=== PATIENT | female | born 1955 | race Caucasian/White ===

== ENCOUNTER 2016-08-25 14:05 | Inpatient (IN) | payer OTHER, MEDICARE ==
[~2016-08-25] VITALS: Ht 162.6 cm; Wt 59.0 kg
[~2016-08-25 14:05] MED LIST: CLONAZEPAM1 MG PO; PAXIL10 M1 PO; VICODIN 300 MG-1 TAB PO
[2016-08-25] MEDS ORDERED: PROPRANOLOL HCL10 M1 PO (14:14)
[2016-08-25] MEDS ORDERED: SERTRALINE HCL100 MG PO (14:15)
[2016-08-25] MEDS ORDERED: CLONAZEPAM0.5 M2 PO (14:16)
[2016-08-25] MEDS ORDERED: HYDROXYZINE HCL25 M2 PO (14:16)
[2016-08-25] MEDS ORDERED: VENTOLIN HFA18 GM INH (14:17)
[2016-08-25] MEDS ORDERED: SYMBICORT 16010.2 GM INH (14:17)
[2016-08-25] MEDS ORDERED: TRAZODONE HCL100 M1 PO (14:18)
[2016-08-25] MEDS ORDERED: BACLOFEN10 M1 PO (14:18)
[2016-08-25] MEDS ORDERED: TRAMADOL HCL50 M1 PO (14:18)
--- NOTE | 2016-08-25 14:31 | NUR ---
FRED FROM HOME. HAS HAS DIARRHEA SINCE 08/23 AND TOOK IMODIUM AND SYMPTOMS STOPPED 08/24. HAS HAD INCREASED CONFUSION, NOT TAKING HER MEDICATIONS. POOR PO INTAKE. IS BEING WEANED FROM HER CLONAZEPAM BY DR SEQUEIRA. PT ALERT BUT SLOW TO RESPOND.
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
[2016-08-25 15:07] LABS: ABSOLUTE BASOPHIL COUNT 0 /CUMM (0.0-0.2); ABSOLUTE EOSINOPHIL COUNT 0 /CUMM (0.0-0.7); ABSOLUTE GRANULOCYTE CT 17.4 /CUMM (1.4-6.5); ABSOLUTE LYMPH COUNT 0.6 /CUMM (1.2-3.4); ABSOLUTE MONOCYTE COUNT 0.2 /CUMM (0.10-0.60); BASOPHIL % 0 % (0.0-2.0); EOSINOPHIL % 0 % (0-5); GRANULOCYTE % 95.9 % (42.2-75.2); HEMATOCRIT 41.6 % (37-47); MEAN CORPUSCULAR HGB 31.6 PG (27.0-31.0); MEAN CORPUSCULAR VOLUME 95.9 FL (81.0-99.0); MEAN PLATELET VOLUME 7.5 FL (7.4-10.4); PLATELET COUNT 623 /CUMM (130-400); RBC DISTRIBUTION WIDTH 14.3 % (11.5-14.5); RED BLOOD CELL CT 4.34 /CUMM (4.20-5.40); WHITE BLOOD CELL COUNT 18.1 /CUMM (4.8-10.8)
--- NOTE | 2016-08-25 15:11 | NUR ---
DR TIM IN WITH PATIENT
--- NOTE | 2016-08-25 15:20 | ED AMS/SEIZURE/WEAK/DIZZY ---
History of Present Illness General Chief Complaint: Altered Mental Status Stated Complaint: BIBA AMS Source: patient Exam Limitations: poor historian Vital Signs & Intake/Output Vital Signs & Intake/Output Vital Signs Date Time Temp Pulse Resp B/P B/P Pulse O2 O2 Flow FiO2 Mean Ox Delivery Rate 08/25 2306 101.5 129 18 116/70 87 Nasal 4.0L Cannula 08/256 100.7 90 18 104/67 90 Nasal 2.0L Cannula 08/25 2014 97.5 101 18 104/67 90 Nasal 2.0L Cannula 08/25 1758 100.2 117 16 106/66 94 Nasal 2.0L Cannula 08/25 1608 98.7 110 18 96/54 89 Nasal 2.0L Cannula 08/25 1426 98 Nasal 3.0L Cannula 08/25 1411 99.1 116 20 93/62 90 Room Air Allergies Coded Allergies: MDX - Azithromycin (Azithromycin) (NAUSEA AND VOMITING 11/23/13) Uncoded Allergies: Z-PACK (Mild, NAUSEA AND VOMITING 11/23/13) Reconcile Medications Albuterol Sulfate (Ventolin Hfa) 90 MCG HFA.AER.AD 2 PUF INH Q4-6 PRN PRN SHORTNESS OF BREATH (Reported) Baclofen 10 MG TABLET 1 TAB PO UNKNOWN (Reported) Budesonide/Formoterol Fumarate (Symbicort 160-4.5 Mcg Inhaler) 160 MCG-4.5 MCG/ ACTUATION HFA.AER.AD 2 PUF INH BID BREATHING PROBLEMS (Reported) Clonazepam 0.5 MG TABLET 1 TAB PO DAILY ANXIETY (Reported) Hydroxyzine HCl 25 MG TABLET 2 TAB PO BID UNKNOWN (Reported) Paroxetine HCl (Paxil) 10 MG TABLET 1 TAB PO DAILY ANXIETY (Reported) Propranolol HCl 10 MG TABLET 1 TAB PO QPM UNKNOWN (Reported) Sertraline HCl 100 MG TABLET 2 TAB PO DAILY MENTAL HEALTH (Reported) Tramadol HCl 50 MG TABLET 1 TAB PO BIDP PRN UNKNOWN (Reported) Trazodone HCl 100 MG TABLET 2 TAB PO QPM SLEEP (Reported) Triage Note: BIBA FROM HOME. HAS HAS DIARRHEA SINCE 08/23 AND TOOK IMODIUM AND SYMPTOMS STOPPED 08/24. HAS HAD INCREASED CONFUSION, NOT TAKING HER MEDICATIONS. POOR PO INTAKE. IS BEING WEANED FROM HER CLONAZEPAM BY DR SEQUEIRA. PT ALERT BUT SLOW TO RESPOND. Triage Nurses Notes Reviewed? yes HPI: Patient presents for evaluation of worsening mental status over the past few days coincident with a decreased PO intake and intermittent diarrhea. Patient took Imodium with improvement but her mental status has not improved. The patient herself is without specific complaint. She denies pain or shortness of breath. (GLENROY BAILEY,LAVON Fonseca) ED Sepsis Exam Date of Focused Sepsis Exam: 08/25/16 Time of Focused Sepsis Exam: 2129 Sepsis Cardiac Exam: Regular Rate/Rhythm Sepsis Resp Exam: CTA Sepsis Cap Refill Exam: <2 Sec Sepsis Peripheral Pulse Exam: Normal Sepsis Peripheral Pulse Location: Dorsalis Pedis Sepsis Skin Color Exam: Normal for Ethnicity Skin Temp/Moisture Exam: Warm/Dry (AIMEE BAILEY,CONSTANTINO) Past History Travel History Traveled to [place] past 21 day No Medical History Any Pertinent Medical History? see below for history Tetanus Vaccine: 11/23/13 Surgical History Surgical History: non-contributory Psychosocial History What is your primary language Colombian Tobacco Use: Current Daily Use Daily Tobacco Use Amount/Type: => 5 Cigarettes daily Family History Hx Contributory? No (GLENROY BAILEY,LAVON Fonseca) Review of Systems Review of Systems Constitutional: Reports: no symptoms. EENTM: Reports: no symptoms. Respiratory: Reports: no symptoms. Cardiovascular: Reports: no symptoms. GI: Reports: no symptoms. Genitourinary: Reports: no symptoms. Musculoskeletal: Reports: no symptoms. Skin: Reports: no symptoms. Neurological/Psychological: Reports: no symptoms. Hematologic/Endocrine: Reports: no symptoms. Immunologic/Allergic: Reports: no symptoms. All Other Systems: Reviewed and Negative (LAVON TIM MD) Physical Exam Physical Exam General Appearance: SEE BELOW Comments: Gen.: Well-nourished, well-developed, no acute respiratory distress. Head: Normocephalic, atraumatic. Eyes: Normal inspection bilaterally, PERRLA, EOMI Ears: Normal inspection bilaterally Nose: Normal inspection Throat/mouth : Tacky mucosa Neck: Supple, full range of motion, no goiter Heart: Regular rate and rhythm, no murmurs rubs or gallops Lungs: Clear to auscultation bilaterally with normal air entry Chest: Nontender Back: Normal range of motion Abdomen: Soft, mild diffuse tenderness without rebound or guarding, nondistended , normal bowel sounds Extremities: Normal range of motion grossly, equal radial pulses, no cyanosis clubbing or edema Neurologic: Cranial nerves grossly intact, speech is clear Skin: warm and dry Psychiatric: Calm, cooperative, no apparent delusions or hallucinations Core Measures ACS in differential dx? No CVA/TIA Diagnosis: No Severe Sepsis Present: Yes Septic Shock Present: No (GLENROY BAILEY,LAVON Fonseca) Progress Differential Diagnosis: anemia, CVA/stroke, dehydration, GI bleed, hypoglycemia, hypoxia, intracranial Hem., intracranial mass/tumor, pneumonia, sepsis, UTI/ pyelo Plan of Care: Orders Procedure Date/time Status Regular Diet 08/26 B Active OXYGEN SETUP (GEN) 08/25 230 Active Saline Lock 08/25 2304 Active Admit to inpatient 08/25 2304 Active Vital Signs 08/25 230 Active Activity/Ambulation 08/25 230 Active Code Status 08/25 2304 Active LACTIC ACID 08/25 2249 Active LACTIC ACID 08/25 1949 Complete BLOOD CULTURE 08/25 1836 Active Saline Lock 08/25 1430 Active CULTURE,URINE 08/25 1430 Active URINE DRUG SCREEN FOR ER ONLY 08/25 1430 Complete URINALYSIS 08/25 1430 Complete THYROID STIMULATING HORMONE 08/25 1430 Complete TROPONIN LEVEL 08/25 1430 Complete T3 UPTAKE (THYROXINE BIND CAP) 08/25 1430 Complete THYROXINE 08/25 1430 Complete ETHANOL 08/25 1430 Complete COMPREHENSIVE METABOLIC PANEL 08/25 1430 Complete CBC WITHOUT DIFFERENTIAL 08/25 1430 Complete EKG 08/25 1430 Active Current Medications Sig/Ry Start time Last Medication Dose Stop Time Status Admin Acetaminophen 1,000 MG ONCE ONE 08/25 2315 UNVr (Ofirmev) 08/25 2316 Laboratory Tests 08/25/162028: Lactic Acid 2.9 H 08/25/16 1830: Urine Opiates Screen < 100.00, Methadone Screen 41, Barbiturate Screen < 60, Ur Phencyclidine Scrn < 6.00, Amphetamines Screen < 100, U Benzodiazepines Scrn 565 H, Urine Cocaine Screen < 50, Urine Cannabis Screen 5.80, Urinalysis HEAVY H, Urine Color FABIAN, Urine Clarity CLDY H, Urine pH 5.5, Ur Specific [place] 1.025, Urine Protein 100 H, Urine Ketones TRACE H, Urine Nitrite POS H, Urine Bilirubin NEG@ICTO, Urine Urobilinogen 4.0 H, Ur Leukocyte Esterase NEG, Ur Microscopic SEDIMENT EXAMINED, Urine RBC 3-5, Urine WBC 25-50 H, Urine Crystals 1+ CA OX H, Urine Bacteria MOD H, Granular Casts 1-3 H, Urine Hemoglobin LARGE H, Urine Glucose NEG 08/25/16 1457: Anion Gap 20 H, Estimated GFR 29 L, BUN/Creatinine Ratio 15.6, Glucose 98, Calcium 8.6, Total Bilirubin 1.0, AST 62 H, ALT 42, Alkaline Phosphatase 75, Troponin I 0.05, Total Protein 5.3 L, Albumin 2.5 L, Globulin 2.8, Albumin/ Globulin Ratio 0.9 L, TSH 3.730, Thyroxine (T4) 3.6 L, Thyroxine Binding Indx 53.5 H, CBC w Diff MAN DIFF ORDERED, RBC 4.34, MCV 95.9, MCH 31.6 H, RDW 14.3, MPV 7.5, Gran % 95.9 H, Lymphocytes % 3.2 L, Monocytes % 0.9 L, Eosinophils % 0, Basophils % 0 L, Absolute Granulocytes 17.4 H, Segmented Neutrophils 50, Band Neutrophils 37 H, Absolute Lymphocytes 0.6 L, Lymphocytes 8 L, Monocytes 4, Absolute Monocytes 0.2, Eosinophils 1, Absolute Eosinophils 0, Absolute Basophils 0, Nucleated RBCs 2 H, Platelet Estimate INCREASED, Normocytic RBCs VERIFIED, Normochromic RBCs VERIFIED, PUBS MCHC 33.0, Serum Alcohol < 10.0 Microbiology 08/25 1904 BLOOD: Blood Culture - RECD 08/25 1849 BLOOD: Blood Culture - RECD 08/25 183 URINE ROUT: Urine Culture - RECD Diagnostic Imaging: Discussed w/RAD: CT Scan. Radiology Impression: PATIENT: YNES TODD PRESENT AGE: 60 PATIENT ACCOUNT NO: [id number] : 54 LOCATION: [facility] ORDERING PHYSICIAN: LAVON TIM MD SERVICE DATE: 08/25/16 EXAM TYPE: CAT - CT HEAD WO IV CONTRAST EXAMINATION: CT HEAD WITHOUT CONTRAST CLINICAL INFORMATION: Altered mental status COMPARISON: None. TECHNIQUE: Contiguous axial imaging was performed from the skull base to vertex without intravenous contrast. DLP: 627 mGy-cm. FINDINGS: There is no evidence of acute intracranial hemorrhage or territorial infarction. No abnormal mass effect or midline shift is seen. Diaz to white matter differentiation is well preserved. No extra-axial fluid collections are identified. No hydrocephalus. No significant volume loss. Patchy periventricular and deep white matter hypoattenuation is consistent with mild small vessel ischemic changes. The osseous structures and soft tissues are normal. The mastoid air cells and visualized portions of the paranasal sinuses are well aerated. IMPRESSION: No acute intracranial pathology. DICTATED BY: KARI MOODY MD DATE/TIME DICTATED:08/25/161533 TUBE CUTTER: AMY DATE/TIME TRANSCRIBED:08/25/161533 CONFIDENTIAL, DO NOT COPY WITHOUT APPROPRIATE AUTHORIZATION. <Electronically signed in Other Vendor System> SIGNED BY: HEIDY BAILEY,KARI 08/25/16 1540 CXR Impression: PATIENT: YNES TODD PRESENT AGE: 60 PATIENT ACCOUNT NO: [id number] : 54 LOCATION: [facility] ORDERING PHYSICIAN: LAVON TIM MD SERVICE DATE: 08/25/16 EXAM TYPE: RAD - XRY-PORTABLE CHEST XRAY EXAMINATION: XR PORTABLE CHEST CLINICAL INFORMATION: Altered mental status. COMPARISON: None TECHNIQUE: Portable frontal view of the chest was obtained. FINDINGS: The cardiomediastinal silhouette is within normal limits for technique. The lungs are normally and symmetrically expanded. The lungs are clear. No pleural effusions or pneumothorax. The visualized osseous structures are intact. IMPRESSION: No radiographic evidence of congestive heart failure or pneumonia. No acute pulmonary process. DICTATED BY: KOURTNEY QUESADA MD DATE/TIME DICTATED:08/25/161513 TUBE CUTTER:FLOYD DATE/TIME TRANSCRIBED:1513 CONFIDENTIAL, DO NOT COPY WITHOUT APPROPRIATE AUTHORIZATION. < Electronically signed in Other Vendor System> SIGNED BY: SANGITA BAILEY,ANAL 1517 Initial ED EKG: rate (106), nonspecific ST T wave chg, SINUS TACHYCARDIA Comments: 08/25/2016 3:18:50 PM I was notified by this patient's nurse that she bumped her right knee while being transported to the CT scanner. She has a very slight abrasion/erythema of the anterior right knee. There is no ecchymoses or soft tissue swelling. The patient ranges the right knee fully. The right lower extremity is neurovascularly intact. I do not feel x-rays are necessary at this time. 08/25/2016 8:38:08 PM Patient signed out to Dr. Yu at shift change control coordinator. (GLENROY BAILEY,LAVON Fonseca) Departure Departure Disposition: STILL A PATIENT Condition: Stable Referrals: ROVERTO MONTENEGRO MD (PCP/Family) Departure Forms: Customer Survey General Discharge Information Admission Note Spoke With: LAVON VELAZQUEZ DO Documentation of Exam: Documentation of any treatments & extenuating circumstances including Concerns Regarding Discharge (functional status, medication knowledge or non-compliance, living conditions, etc.) that warrant an admission rather than observation: Patient is manifesting signs of severe sepsis placing her at very high risk of mortality. She now requires aggressive management with IV fluids, IV antibiotics and close clinical monitoring of her condition along with vital signs. The patient's severe sepsis has debilitated her functional capacity making her a very poor candidate for outpatient management. I do not feel she would be capable of compliance with outpatient treatment. She would likely work return in worse clinical condition. She will require a multiple day hospitalization. (GLENROY BAILEY,LAVON Fonseca) Departure Time of Disposition: 2306 Clinical Impression Primary Impression: Severe sepsis Secondary Impressions: Urinary tract infection Qualifiers: Urinary tract infection type: site unspecified Hematuria presence: without hematuria Qualified Code: N39.0 - Urinary tract infection, site not specified (CONSTANTINO YU MD)
--- NOTE | 2016-08-25 15:40 | CT SCAN REPORT ---
EXAMINATION: CT HEAD WITHOUT CONTRAST CLINICAL INFORMATION: Altered mental status COMPARISON: None. TECHNIQUE: Contiguous axial imaging was performed from the skull base to vertex without intravenous contrast. DLP: 627 mGy-cm. FINDINGS: There is no evidence of acute intracranial hemorrhage or territorial infarction. No abnormal mass effect or midline shift is seen. Diaz to white matter differentiation is well preserved. No extra-axial fluid collections are identified. No hydrocephalus. No significant volume loss. Patchy periventricular and deep white matter hypoattenuation is consistent with mild small vessel ischemic changes. The osseous structures and soft tissues are normal. The mastoid air cells and visualized portions of the paranasal sinuses are well aerated. IMPRESSION: No acute intracranial pathology.
--- NOTE | 2016-08-25 16:50 | NUR ---
PT ATTEMPT TO GET UP UNASSISTED. REDIRECTED TO STREJAUNHER.
--- NOTE | 2016-08-25 17:03 | NUR ---
JAVA SYBASE DEVELOPER AT BEDSIDE
--- NOTE | 2016-08-25 17:57 | NUR ---
PT REQUESTED BEDPAN, BUT WAS UNABLE TO VOID. DR TIM AWARE
--- NOTE | 2016-08-25 18:37 | NUR ---
PT STRAIGHT CATHED FOR 100ML CLOUDY FABIAN URINE
--- NOTE | 2016-08-25 20:29 | NUR ---
PT BLOOD SENT TO THE LAB [facility]
--- NOTE | 2016-08-25 21:13 | NUR ---
LAB CALLED WITH LACTIC ACID 2.9. RESULTS REPORTED TO DR TIM
--- NOTE | 2016-08-25 23:17 | NUR ---
PT BLOOD SENT TO THE LAB [facility]
--- NOTE | 2016-08-25 23:37 | NUR ---
CRITICAL TEST RESULTS [id number] YNES TODD 60 F TESTS AND RESULTS: LACTIC 2.7 Results received and read back by: ALEXA VERONICA Results received date and time: 08/25/16 4850 The following provider was notified of the results, and read the results back: DR VELAZQUEZ Notified date and time: 08/25/16 at 7522
--- NOTE | 2016-08-25 23:39 | NUR ---
DR VELAZQUEZ AT BEDSIDE.
--- NOTE | 2016-08-25 23:56 | NUR ---
PT GOING TO ROOM 223-2
--- NOTE | 2016-08-26 | NUR ---
PER DR VELAZQEUZ, PT WILL BE UPGRADED TO [facility].
--- NOTE | 2016-08-26 00:28 | NUR ---
TOBAR PLACED USING STERILE TECHNIQUE. INITIAL OUTPUT: 45ML DARK FABIAN URINE.
--- NOTE | 2016-08-26 00:35 | History & Physical ---
See Addendum General Information and HPI MD Statement: I have seen and personally examined YNES TODD and documented this H&P. The patient is a 60 year old F who presented with a patient stated chief complaint of [altered mental status, fever and lethargy]. The patient lives at home. She is currently confused in the ED. History of Present Illness: 60-year-old female presents to the emergency department with altered mental status fever and hypotension Allergies/Medications Allergies: Coded Allergies: MDX - Azithromycin (Azithromycin) (NAUSEA AND VOMITING 11/23/13) Uncoded Allergies: Z-PACK (Mild, NAUSEA AND VOMITING 11/23/13) Home Med list Albuterol Sulfate (Ventolin Hfa) 90 MCG HFA.AER.AD 2 PUF INH Q4-6 PRN PRN SHORTNESS OF BREATH (Reported) Baclofen 10 MG TABLET 1 TAB PO UNKNOWN (Reported) Budesonide/Formoterol Fumarate (Symbicort 160-4.5 Mcg Inhaler) 160 MCG-4.5 MCG/ ACTUATION HFA.AER.AD 2 PUF INH BID BREATHING PROBLEMS (Reported) Clonazepam 0.5 MG TABLET 1 TAB PO DAILY ANXIETY (Reported) Hydroxyzine HCl 25 MG TABLET 2 TAB PO BID UNKNOWN (Reported) Paroxetine HCl (Paxil) 10 MG TABLET 1 TAB PO DAILY ANXIETY (Reported) Propranolol HCl 10 MG TABLET 1 TAB PO QPM UNKNOWN (Reported) Sertraline HCl 100 MG TABLET 2 TAB PO DAILY MENTAL HEALTH (Reported) Tramadol HCl 50 MG TABLET 1 TAB PO BIDP PRN UNKNOWN (Reported) Trazodone HCl 100 MG TABLET 2 TAB PO QPM SLEEP (Reported) Past History Travel History Traveled to [place] past 21 day No Medical History Gastrointestinal: gastritis Tetanus Vaccine: 11/23/13 Surgical History Surgical History: non-contributory Past Family/Social History Family History Relations & Conditions if any Family history was reviewed; no changes noted. Review of Systems Review of Systems Constitutional: Reports: fever. EENTM: Reports: no symptoms. Cardiovascular: Denies: chest pain. Respiratory: Denies: short of breath. GI: Denies: abdominal pain. Genitourinary: Reports: no symptoms. Musculoskeletal: Reports: no symptoms. Skin: Denies: rash. Neurological/Psychological: Reports: confusion. Hematologic/Endocrine: Reports: no symptoms. Immunologic/Allergic: Reports: no symptoms. Exam & Diagnostic Data Last 24 Hrs of Vital Signs/I&O Vital Signs Date Time Temp Pulse Resp B/P B/P Pulse O2 O2 Flow FiO2 Mean Ox Delivery Rate 08/26 0118 95.0 113 24 119/76 95 Part 60% ReBreather 08/26 0048 97.7 111 22 114/72 97 Non 8L ReBreather 08/26 0015 97.8 115 22 121/72 94 Non ReBreather 08/26 0007 97.8 08/25 2306 101.5 129 18 116/70 87 Nasal 4.0L Cannula 08/25 2036 100.7 90 18 104/67 90 Nasal 2.0L Cannula 08/25 2014 97.5 101 18 104/67 90 Nasal 2.0L Cannula 08/25 1758 100.2 117 16 106/66 94 Nasal 2.0L Cannula 08/25 1608 98.7 110 18 96/54 89 Nasal 2.0L Cannula 08/25 1426 98 Nasal 3.0L Cannula 08/25 1411 99.1 116 20 93/62 90 Room Air Intake & Output 08/26 0800 08/26 0000 08/25 1600 Intake Total 1120 Output Total Balance 1120 Intake, IV 1000 Intake, Oral 120 The patient is hypotensive and confused Physical Exam General Appearance Moderate Distress Skin No Rashes Skin Temp/Moisture Exam: Hot/Diaphoretic Sepsis Skin Exam (color): Normal for Ethnicity HEENT Atraumatic, PERRLA, EOMI Neck Supple Lymphatic Axillary nl Cardiovascular tachycardic Lungs Clear to Auscultation Abdomen Soft, No Tenderness Neurological confused, non focal Extremities No Edema Vascular Normal Pulses Sepsis Peripheral Pulse Location: Radial Sepsis Peripheral Pulse Exam: Bounding Diagnostic Data EKG Results sinus tach, nsst CXR Results napd Assessment/Plan Assessment: 60-year-old female with hypotension and altered mental status and fever. IV fluids, griggs culture, IV antibiotics, admission to the ICU infectious disease consultation in the a.m. Chest x-ray was negative for evidence of pneumonia, head CT was negative, UA shows pyuria As Ranked By This Provider Problem List: 1. Sepsis 2. Urinary tract infection Qualifiers Urinary tract infection type: site unspecified Hematuria presence: without hematuria Qualified Code: N39.0 - Urinary tract infection, site not specified Core Measures/Miscellaneous Acute Coronary Syndrome ACS Diagnosis: No Cerebrovascular Accident CVA/TIA Diagnosis: No Congestive Heart Failure CHF Diagnosis: No Venous Thromboembolism VTE Risk Factors: Acute medical illness No Mech VTE prophylaxis d/t: No contraindications No VTE Pharm Prophylaxis d/t: No contraindications VTE Diagnosis: No VTE Type: NONE VTE Confirmed by (Test): NONE Severe Sepsis Severe Sepsis Present: Yes Septic Shock Septic Shock Present: No BC x2: Yes Lactic Acid: Yes IV ABX Broad Spectrum: Yes Focused Exam Completed: Yes NS/LR 30ml/kg w/in 3hrs: Yes IV Vasopressors started: No (bp normalized) Miscellaneous Documentation Attending Case Discussed With: RENA COFFMAN M.D Primary Care Physician: ROVERTO MONTENEGRO MD Patient sees these Specialists Level of Patient Care: Critical Care (CRI)
--- NOTE | 2016-08-26 01:20 | NUR ---
RESPIRATORY THERAPY NOTE: ON 100% FIO2 VIA NRB POX = 98%, FIO2 DECREASED TO 60% FIO2 VIA PRB
--- NOTE | 2016-08-26 01:29 | NUR ---
PATIENT TO GO TO ROOM 103.
--- NOTE | 2016-08-26 01:38 | NUR ---
DR CONTRERAS AT BEDSIDE FOR EVAL. PT EXPERIENCING COPIOUS GREEN MUCOUS PRODUCTION.
--- NOTE | 2016-08-26 02:04 | NUR ---
REPORT GIVEN TO WILNER TAPIA ON ICU. BED IS READY.
--- NOTE | 2016-08-26 02:07 | NUR ---
PT WILL GO TO CAT SCAN BEFORE GOING UP TO UNIT.
[2016-08-26 03:00] VITALS: BP 119/70
--- NOTE | 2016-08-26 03:08 | CT SCAN REPORT ---
EXAMINATION: CT CHEST, ABDOMEN AND PELVIS WITHOUT CONTRAST CLINICAL INFORMATION: Altered mental status. Fever. COMPARISON: None. TECHNIQUE: Contiguous axial thin section helical images of the chest, abdomen and pelvis were performed following without oral or IV contrast. The data set was reformatted in the coronal and sagittal planes and reviewed on an independent workstation. DLP: 453 mGy-cm. FINDINGS: The heart is of normal size. There is no pericardial effusion. There is neither mediastinal, hilar nor axillary lymphadenopathy. There are no chest wall masses. Review of lung windows demonstrates that there are no pneumothoraces. There are small bilateral pleural effusions with associated airspace disease. There is atelectasis within the inferior left upper lobe and medial right upper lobe. There is bilateral lower lobe bronchial wall thickening and patchy atelectasis. The liver is of normal size and attenuation without intrahepatic biliary ductal dilation. Within the right lobe of the liver on image 57/119, there is a 9 mm low-attenuation lesion which is too small to fully characterize, but statistically likely represents a cyst. Within the left lobe anteriorly, there is a 11 mm cyst. The gallbladder is distended. There is no wall thickening or discernible pericholecystic fluid. The spleen, pancreas, adrenal glands are unremarkable. Both kidneys are of normal size and attenuation without hydronephrosis or nephrolithiasis. There is a moderate amount of free fluid within the upper abdomen. There is neither mesenteric nor retroperitoneal lymphadenopathy. Several air-fluid levels are present within mildly prominent loops of small bowel. There is no obstruction unremarkable unopacified large bowel is identified. There is a small amount of pelvic free fluid. A Fulton catheter is present within the urinary bladder which is partially filled. There is neither pelvic nor inguinal lymphadenopathy. Bone windows: Neither sclerotic nor lytic bone lesions are identified. There is disc height loss at L4/L5. There is mild anterior displacement of L4 in relation to L5, likely sales representative facility services of pseudocyst listhesis due to degenerative change within the facet joints. IMPRESSION: Moderate amount of ascites within the upper abdomen. Small bilateral pleural effusions with associated airspace disease. Multiple air-fluid levels present within mildly prominent loops of small bowel. This is nonspecific, but consider ileus or gastroenteritis. Nonspecific multifocal atelectasis.
[2016-08-26 04:31] LABS: ABSOLUTE BASOPHIL COUNT 0 /CUMM (0.0-0.2); ABSOLUTE EOSINOPHIL COUNT 0 /CUMM (0.0-0.7); ABSOLUTE GRANULOCYTE CT 20.7 /CUMM (1.4-6.5); ABSOLUTE LYMPH COUNT 0.5 /CUMM (1.2-3.4); ABSOLUTE MONOCYTE COUNT 0.3 /CUMM (0.10-0.60); BASOPHIL % 0 % (0.0-2.0); EOSINOPHIL % 0.1 % (0-5); GRANULOCYTE % 95.9 % (42.2-75.2); HEMATOCRIT 38.7 % (37-47); MEAN CORPUSCULAR HGB 31.3 PG (27.0-31.0); MEAN CORPUSCULAR HGB CONC 32.8 G/DL (33.0-37.0); MEAN CORPUSCULAR VOLUME 95.4 FL (81.0-99.0); MEAN PLATELET VOLUME 7.9 FL (7.4-10.4); PLATELET COUNT 520 /CUMM (130-400); RBC DISTRIBUTION WIDTH 14.5 % (11.5-14.5); RED BLOOD CELL CT 4.05 /CUMM (4.20-5.40); WHITE BLOOD CELL COUNT 21.6 /CUMM (4.8-10.8)
--- NOTE | 2016-08-26 04:54 | NUR ---
ADMIT ACCEPTANCE: REC'D REPORT FROM WILNER LIU IN ER. DX: UTI/PYELONEPHRENITIS/SEPSIS. LACTIC ACID PEAKED AT 2.9. WBC 18.1. TEMP MAX 101.5 TYLENOL IV GIVEN IN THE ER & COLLECTED BC/UC. HAD CT HEAD & CXR -VE. CT ABD/PELVIS & CHEST DONE PRIOR ADMIT TO THE ICU. 0255 ARRIVED IN THE ICU TO RM 103 VIA STRETCHER & SAFELY PLACED PT ONTO THE BED W/ 4 STAFF. HOOKED UP ON THE MONITOR. ST W/HR 100'S, SBP 118/70 MANUALLY & CORRELATING TO AUTO CUFF. ON 60% PRB POX 93%, LS CLEAR BUT DIMINISHED THROUGHOUT THE LOBES. FC INSITU & DRAINING DARK FABIAN URINE LOW U/O DESPITE RECEIVING 3L NS BOLUS IN ER. HUNG NS @100ML/HR INFUSING TO L WRIST. ABD SL DISTENDED BUT SOFT BS +VE. NO BM. ORDERS FOR CDIFF TO BE COLLECTED. NO C/O PAIN VOICED. PT DROWSEY, SLOW SPEECH, ANSWERS QUESTIONS APPROPRIATELY BUT CONFUSED W/DATE & HER BIRTHDAY, KNOWS SHE IN THE HOSPITAL BUT FORGETS EASILY. 0500 ATTEMPTED TO CLIMB OOB, BED ALARM PLACED. LABS DONE & SENT. PT PULLED OUT THE IV ON L WRIST. REORIENT/REASSURANCE GIVEN. CONT TO MONITOR.
[2016-08-26 08:00] VITALS: BP 126/88
--- NOTE | 2016-08-26 08:29 | Cons- CRCU ---
MARA MONROY MD 08/26/16 0829: General Information and HPI Consulting Request Date of Consult: 08/26/16 History of Present Illness: Ms. Camacho is a 60 year old female with PMH anxiety, depression, COPD , prior episode of severe clostridium difficile infection in 2016, tobacco abuse and gastritis who presented to [facility] on 08/25/16 with chief complaint of altered mental status for one week, fever and decreased oral intake. Ms. Camacho was noted to be slightly altered beginning on 08/22/16 and the following day she experienced several episodes of non-bloody diarrhea at which time immodium was given. Her diarrhea stopped on 08/24/16 but she continued to remain confused along with decreased PO intake and no intake of prescribed daily medications. PCP was contacted and encouraged patient to hydrate with water and go to get evaluated at the hospital, which patient refused. Patient was also noted to eat toilet paper during this altered mental status. Of note, these symptoms began around the time that her physician Dr. Hicks was titrating down her clonazepam. On presentation to the [facility] ED, patient was noted to be altered, hypotensive and febrile. There was mention of burning on urination prior to admission. Review of systems is unable to be obtained secondary to patient condition and encephalopathy. Sister who is power of ip technology transactions attorney at bedside and has brought living will which has been placed in the chart. Patient is to remain full code and will accept blood products and central line. Allergies/Medications Allergies: Coded Allergies: azithromycin (Intermediate, NAUSEA AND VOMITING 08/26/16) Home Med List: Albuterol Sulfate (Ventolin Hfa) 90 MCG HFA.AER.AD 2 PUF INH Q4-6 PRN PRN SHORTNESS OF BREATH (Reported) Baclofen 10 MG TABLET 1 TAB PO UNKNOWN (Reported) Budesonide/Formoterol Fumarate (Symbicort 160-4.5 Mcg Inhaler) 160 MCG-4.5 MCG/ ACTUATION HFA.AER.AD 2 PUF INH BID BREATHING PROBLEMS (Reported) Clonazepam 0.5 MG TABLET 1 TAB PO DAILY ANXIETY (Reported) Hydroxyzine HCl 25 MG TABLET 2 TAB PO BID UNKNOWN (Reported) Paroxetine HCl (Paxil) 10 MG TABLET 1 TAB PO DAILY ANXIETY (Reported) Propranolol HCl 10 MG TABLET 1 TAB PO QPM UNKNOWN (Reported) Sertraline HCl 100 MG TABLET 2 TAB PO DAILY MENTAL HEALTH (Reported) Tramadol HCl 50 MG TABLET 1 TAB PO BIDP PRN UNKNOWN (Reported) Trazodone HCl 100 MG TABLET 2 TAB PO QPM SLEEP (Reported) Current Medications: Current Medications Sig/Ry Start time Last Medication Dose Route Stop Time Status Admin Acetaminophen 1,000 MG ONCE ONE 08/25 2314 DC 08/25 IV 08/25 2316 2317 Acetaminophen 0 .STK-MED ONE 08/25 2314 DC IV Albuterol Sulfate 2 PUF Q4-6 PRN PRN 08/26 021 AC INH Ampicillin Sodium/ 1,500 MG Q6H 08/26 0330 AC 08/26 Sulbactam Sodium IV 0929 Sodium Chloride 100 ML Budesonide/ 2 PUF BID 08/26 1000 AC Formoterol Fumarate INH Ceftriaxone Sodium 2,000 MG 2100 08/26 2100 AC IV Ceftriaxone Sodium 0 .STK-MED ONE 08/25 2024 DC .ROUTE Ceftriaxone Sodium 1,000 MG ONCE ONE 08/25 2014 DC 08/25 IV 08/25 Clonazepam 0.5 MG DAILY 08/26 1000 AC 08/26 PO 09/02 0959 0839 Heparin Sodium 5,000 UNIT Q8 08/26 1400 AC (Porcine) SC Paroxetine HCl 10 MG DAILY 08/26 1000 CAN PO Potassium Chloride 10 MEQ Q1H 08/26 0700 DC 08/26 IV 08/26 0801 1027 Propranolol HCl 10 MG QPM 08/26 2200 CAN PO Propranolol HCl 10 MG DAILY 08/26 1000 CAN PO Propranolol HCl 10 MG 0800 08/26 0800 DC 08/26 PO 0845 Sertraline HCl 200 MG DAILY 08/26 1000 CAN PO Sodium Chloride 1,000 ML BOLUS ONE 08/26 0800 DC 08/26 IV 08/26 0859 0839 Sodium Chloride 1,000 ML BOLUS ONE 08/26 0800 DC 08/26 IV 08/26 0859 0949 Sodium Chloride 1,000 ML Q10H 08/26 0215 AC 08/26 IV 0310 Sodium Chloride 1,000 ML BOLUS ONE 08/26 0215 DC 08/26 IV 08/26 0314 0215 Sodium Chloride 1,000 ML BOLUS ONE 08/26 0130 DC 08/26 IV 08/26 0229 0141 Sodium Chloride 1,000 ML BOLUS ONE 08/25 2130 DC 08/25 IV 08/25 2229 2317 Sodium Chloride 1,000 ML BOLUS ONE 08/26 1999 DC 08/25 IV 08/25 Tramadol HCl 50 MG Q12P PRN 08/26 0715 DC PO Trazodone HCl 200 MG QPM 08/260 CAN PO Review of Systems Review of Systems Constitutional: Reports: see HPI. EENTM: Reports: see HPI. Cardiovascular: Reports: see HPI. Respiratory: Reports: see HPI. GI: Reports: see HPI. Genitourinary: Reports: see HPI. Musculoskeletal: Reports: see HPI. Skin: Reports: see HPI. Neurological/Psychological: Reports: see HPI. Hematologic/Endocrine: Reports: see HPI. Immunologic/Allergic: Reports: see HPI. Past History Travel History Traveled to [place] past 21 day No Medical History Neurological: NONE Respiratory: COPD Gastrointestinal: gastritis, Clostridium difficile Psychiatric: anxiety, depression Surgical History Surgical History: non-contributory Psychosocial History Where Do You Live? Home Services at Home: None Smoking Status: Current Everyday Smoker Exam & Diagnostic Data Last 24 Hrs of Vital Signs/I&O Vital Signs Date Time Temp Pulse Resp B/P B/P Pulse O2 O2 Flow FiO2 Mean Ox Delivery Rate 08/26 0845 99.9 134 64 126/88 08/26 0324 93 Part 60% ReBreather 08/26 0323 92 Part 60% ReBreather 08/26 0300 98.9 106 24 119/70 93 Part 60% ReBreather 08/26 0216 97.8 103 20 131/68 95 Part 60% ReBreather 08/26 0144 97.7 98 20 119/66 94 Part 60% ReBreather 08/26 0118 95.0 113 24 119/76 95 Part 60% ReBreather 08/26 0048 97.7 111 22 114/72 97 Non 8L ReBreather 08/26 0015 97.8 115 22 121/72 94 Non ReBreather 08/26 0007 97.8 08/25 2306 101.5 129 18 116/70 87 Nasal 4.0L Cannula 08/26 2035 100.7 90 18 104/67 90 Nasal 2.0L Cannula 08/25 2014 97.5 101 18 104/67 90 Nasal 2.0L Cannula 08/25 175 100.2 117 16 106/66 94 Nasal 2.0L Cannula 08/25 1608 98.7 110 18 96/54 89 Nasal 2.0L Cannula 08/25 1426 98 Nasal 3.0L Cannula 08/25 1411 99.1 116 20 93/62 90 Room Air Intake & Output 08/26 1600 08/26 0800 08/26 0000 Intake Total 1378 Output Total 300 Balance 1078 Intake, IV 1328 Intake, Oral 50 Number 0 Bowel Movements Output, Urine 300 Patient 129 lb Weight Weight Bed scale Measurement Method Physical Exam General Appearance: anxious, mild distress, Agitated, AAOx1 (only oriented to place) Head: atraumatic, normal appearance Eyes: Bilateral: EOMI, other (Lt pupil nonreactive to light). Ears, Nose, Throat: normal pharynx, normal ENT inspection, hearing grossly normal Neck: normal inspection, supple Respiratory: normal breath sounds, chest non-tender, Tachypneic, shallow breaths noted, moderate respiratory distress Cardiovascular: regular rate/rhythm Peripheral Pulses: 2+ dorsalis pedis (R), 2+ dorsalis pedis (L) Gastrointestinal: Diffusely tender to palpation with RLQ most tender. + Distention without fluid shifts Extremities: normal inspection, normal capillary refill, normal range of motion, no edema Neurologic/Psych: awake, Disoriented, agitated, no facial droop, no meningeal signs, all limbs with normal movement. Left pupil nonreactive to light, right pupil reactive. Cranial Nerves: normal hearing, No gaze palsy Skin: normal color, warm/dry Lymphatic: no anterior cervical jyoti Last 48 Hrs of Labs/Salvador: Laboratory Tests 08/26/16 0503: Lactic Acid Cancelled 08/26/16 0400: Anion Gap 14, Estimated GFR 31 L, BUN/Creatinine Ratio 22.4, Glucose 83, Lactic Acid 2.1, Calcium 7.4 L, Magnesium 1.9, Total Bilirubin 1.0, AST 74 H, ALT 56 H, Alkaline Phosphatase 82, Creatine Kinase 370 H, Troponin I 0.06, Pro-B- Natriuretic Pept 51132 H, Total Protein 4.7 L, Albumin 2.1 L, Globulin 2.6, Albumin/Globulin Ratio 0.8 L, Amylase 153 H, Lipase < 10 L, CBC w Diff MAN DIFF ORDERED, RBC 4.05 L, MCV 95.4, MCH 31.3 H, RDW 14.5, MPV 7.9, Gran % 95.9 H, Lymphocytes % 2.5 L, Monocytes % 1.5 L, Eosinophils % 0.1, Basophils % 0 L, Absolute Granulocytes 20.7 H, Segmented Neutrophils 72, Band Neutrophils 19 H, Absolute Lymphocytes 0.5 L, Lymphocytes 5 L, Monocytes 3, Absolute Monocytes 0.3, Absolute Eosinophils 0, Absolute Basophils 0, Metamyelocytes 1, Platelet Estimate INCREASED, Polychromasia 1+, Hypochromic-Microcytic 1+, Ovalocytes FEW, PUBS MCHC 32.8 L, Fld Total RBCs Counted 100 08/26/16 0330: pH 7.36, pCO2 31 L, pO2 91, HCO3 17 L, ABG O2 Sat (Measured) 95.0 L, P-50 ( Temp Corrected) Y, Carboxyhemoglobin 0.6 L, O2 Concentration % 60%, Temperature 98.9, O2 Delivery Method PRB, Phlebotomy Draw Site RIGHT RADIAL 08/25/160: Lactic Acid 2.7 H 08/25/162028: Lactic Acid 2.9 H 08/25/16 1830: Urine Opiates Screen < 100.00, Methadone Screen 41, Barbiturate Screen < 60, Ur Phencyclidine Scrn < 6.00, Amphetamines Screen < 100, U Benzodiazepines Scrn 565 H, Urine Cocaine Screen < 50, Urine Cannabis Screen 5.80, Urinalysis HEAVY H, Urine Color FABIAN, Urine Clarity CLDY H, Urine pH 5.5, Ur Specific [place] 1.025, Urine Protein 100 H, Urine Ketones TRACE H, Urine Nitrite POS H, Urine Bilirubin NEG@ICTO, Urine Urobilinogen 4.0 H, Ur Leukocyte Esterase NEG, Ur Microscopic SEDIMENT EXAMINED, Urine RBC 3-5, Urine WBC 25-50 H, Urine Crystals 1+ CA OX H, Urine Bacteria MOD H, Granular Casts 1-3 H, Urine Hemoglobin LARGE H, Urine Glucose NEG 08/25/16 1457: Anion Gap 20 H, Estimated GFR 29 L, BUN/Creatinine Ratio 15.6, Glucose 98, Calcium 8.6, Total Bilirubin 1.0, AST 62 H, ALT 42, Alkaline Phosphatase 75, Troponin I 0.05, Total Protein 5.3 L, Albumin 2.5 L, Globulin 2.8, Albumin/ Globulin Ratio 0.9 L, TSH 3.730, Thyroxine (T4) 3.6 L, Thyroxine Binding Indx 53.5 H, CBC w Diff MAN DIFF ORDERED, RBC 4.34, MCV 95.9, MCH 31.6 H, RDW 14.3, MPV 7.5, Gran % 95.9 H, Lymphocytes % 3.2 L, Monocytes % 0.9 L, Eosinophils % 0, Basophils % 0 L, Absolute Granulocytes 17.4 H, Segmented Neutrophils 50, Band Neutrophils 37 H, Absolute Lymphocytes 0.6 L, Lymphocytes 8 L, Monocytes 4, Absolute Monocytes 0.2, Eosinophils 1, Absolute Eosinophils 0, Absolute Basophils 0, Nucleated RBCs 2 H, Platelet Estimate INCREASED, Normocytic RBCs VERIFIED, Normochromic RBCs VERIFIED, PUBS MCHC 33.0, Serum Alcohol < 10.0 Diagnostic Data EKG Results Sinus tachycardia, HR 133 bpm, T wave flattening, QTC 392 CXR Results IMPRESSION: No radiographic evidence of congestive heart failure or pneumonia. No acute pulmonary process. Other Results Head CT: IMPRESSION: No acute intracranial pathology. Chest/abdomen/pelvis CT: IMPRESSION: Moderate amount of ascites within the upper abdomen. Small bilateral pleural effusions with associated airspace disease. Multiple air-fluid levels present within mildly prominent loops of small bowel. This is nonspecific, but consider ileus or gastroenteritis. Nonspecific multifocal atelectasis. Assessment/Plan Impression/Plan: Ms. Camacho is a 60 year old female with PMH anxiety, depression, COPD , prior episode of severe clostridium difficile infection in 2016, tobacco abuse and gastritis who presented to the [facility] ED after one week of altered mental status, decreased oral intake and possible withdrawl symptoms as her clonazepam was being titrated off per doctor instructions. She was found to be hypotensive, febrile and altered while in the [facility] ED. In the ED: Vital signs showed Tmax 101.5, HR 116, RR 20, BP 93/62 and O2 saturation 90% on room air. Labs were significant for WBC 18.1 with 37 bands, H&H 13.7/41.6, Plt 623, Na 143 , K 3.6, Cl 107, HCO3 16, BUN/cre 28/1.8, Glu 98, Lactic acid 2.9, AST 62, ALT 42, CK 370, troponin 0.05, proBNP 65877, amylase 153, lipase <10, and UA with high protein, positive nitrite, high urobilinogen, 50 WBCs, moderate bacteria and large hgb. CXR showed no acute pulmonary process. Head CT was negative for acute pathology. Patient was admitted to the ICU and the following is the current management: 1. Severe sepsis * Patient febrile, + leukocytosis with bandemia, hypotensive and tachycardic on admission * Differential includes abdominal pathology vs urinary source vs aspiration PNA in the setting of altered mental status * Patient started empirically on unasyn and ceftriaxone * ID consult for today appreciated * Swith to IV flagyl and ceftriaxone as abdominal pathology highest on differential at this point in time and clostridium infection a concern * Continue IVF for hydration * Cdiff sent, f/u results; keep on isolation for now * F/U Pancultures; gram + carlos growing in one bottle so far (?clostridial infection) * Surgical consult obtained due to concerns for possible peritonitis; suggest no surgical intervention needed at this time, will continue with serial abdominal exams * GI consult placed, follow up recommendations * HIDA scan pending, f/u results * Diagnostic paracentesis with IR, f/u results 2. Metabolic encephalopathy * Differential includes secondary to sepsis vs polypharmacy with psychiatric contribution * Patient AAOx1 and unable to provide detailed history/account of events leading up to admission * Continue to monitor closely, if patient becomes obtunded low threshold for intubation * CT head negative for acute intracranial pathology * Hold all sedatives, hold psych meds for now and restart when improved * Keep patient NPO while altered 3. Acute hypoxemic respiratory failure * Patient initially placed on non-rebreather but was transitioned to high flow nasal cannula and ultimately BiPAP * Patient tolerating BiPAP well, will closely monitor and obtain ABG if mental status worsens/patient appears more lethargic * Low threshold for intubation * Aspiration precautions 4. SIERRA * Likely prerenal in the setting of severe sepsis * Continue IVF hydration * Monitor renal function and electrolytes with ICU bundle 5. Sinus tachycardia with T wave changes * Continuous telemetry monitoring * Troponins negative x 3 * Echo shows normal global LV function without wall motion abnormalities and normal pulm artery systolic pressure * Monitor vital signs closely FULL CODE Diet: NPO DVTP: ALPS Consult Acknowledgment - Thank you for your consult request. GARY CARIAS MD 08/26/16 0923: General Information and HPI Consulting Request Date of Consult: 08/26/16 Requested By: Dr. Styles Reason for Consult: hypotension Source of Information: patient Exam Limitations: no limitations Allergies/Medications Current Medications: Current Medications Sig/Ry Start time Last Medication Dose Route Stop Time Status Admin Acetaminophen 1,000 MG ONCE ONE 08/25 2315 DC 08/25 IV 08/25 2316 2317 Acetaminophen 0 .STK-MED ONE 08/25 231 DC IV Albuterol Sulfate 2 PUF Q4-6 PRN PRN 08/26 0215 AC INH Ampicillin Sodium/ 1,500 MG Q6H 08/26 0330 AC 08/26 Sulbactam Sodium IV 0400 Sodium Chloride 100 ML Budesonide/ 2 PUF BID 08/26 1000 AC Formoterol Fumarate INH Ceftriaxone Sodium 2,000 MG 2100 08/26 2100 AC IV Ceftriaxone Sodium 0 .STK-MED ONE 08/25 2024 DC .ROUTE Ceftriaxone Sodium 1,000 MG ONCE ONE 08/25 2014 DC 08/25 IV 08/26 2015 2019 Clonazepam 0.5 MG DAILY 08/26 1000 AC 08/26 PO 09/02 0959 0839 Paroxetine HCl 10 MG DAILY 08/26 1000 AC PO Potassium Chloride 10 MEQ Q1H 08/26 0700 DC 08/26 IV 08/26 0801 0839 Propranolol HCl 10 MG QPM 08/26 2200 CAN PO Propranolol HCl 10 MG DAILY 08/26 1000 CAN PO Propranolol HCl 10 MG 0800 08/26 0800 AC 08/26 PO 0845 Sertraline HCl 200 MG DAILY 08/26 1000 AC PO Sodium Chloride 1,000 ML BOLUS ONE 08/26 0800 DC 08/26 IV 08/26 0859 0839 Sodium Chloride 1,000 ML BOLUS ONE 08/26 0800 DC IV 08/26 0859 Sodium Chloride 1,000 ML Q10H 08/26 0215 AC 08/26 IV 0310 Sodium Chloride 1,000 ML BOLUS ONE 08/26 0215 DC 08/26 IV 08/26 0314 0215 Sodium Chloride 1,000 ML BOLUS ONE 08/26 0130 DC 08/26 IV 08/26 0229 0141 Sodium Chloride 1,000 ML BOLUS ONE 08/25 2130 DC 08/25 IV 08/25 2228 2317 Sodium Chloride 1,000 ML BOLUS ONE 08/25 2000 DC 08/25 IV 08/25 2058 2019 Tramadol HCl 50 MG Q12P PRN 08/26 0715 AC PO Trazodone HCl 200 MG QPM 08/26 2200 AC PO Assessment/Plan Other Findings/Comments: Impression 60 year old woman * Severe sepsis - origin maybe urinary source, abdominal pathology and aspiration pneumonia * SIERRA most likely secondary to prerenal causes * Altered mental status - no meningeal symptoms, alert and awake, could be secondary to sepsis, also can be secondary to benzo use or polypharmacy for psychiatric meds * Hypoxemic respiratory failure - 87% initially requiring o2 supplementation Plan Respiratory -TRC/Nebs -aspiration precautions -reduce fio2 as tolerated -CXR repeat -f/u ECHO -LE dopplers -V/Q scan ID -febrile, leukocytosis and bandemia -f/u pancultures -ID consultation was requested, will tailor abx per ID, currently on ceftriaxone and unasyn, would prefer flagyl addition, however will await recommendations -c.diff culture and c.diff history CVS -f/u ECHO, LE dopplers -BNP -EKG TWI -monitor hemodynamics -has not required pressors Heme -f/u coags Metabolic -SIERRA, prerenal most likely cause -receiving IV saline for hydration -will repeat BMP afternoon -add CK Alimentary -aspiration precautions Neuro -CT head negative -not meningeal -monitor for now -hold sedatives will confirm psych meds and if dosing is concerning will request psych input DVT prophylaxis at all times TTS 45 min Consult Acknowledgment - Thank you for your consult request.
--- NOTE | 2016-08-26 09:00 | NUR ---
@0700-RECEIVED PT DROWSY & AROUSABLE TO SPEECH, ORIENTED TO SELF & PLACE. SINUS TACHYCARDIA ON MEDICAL EDITOR WITH HR 128-130S. MANUAL BP 126/88. O2 SAT 94% ON 60% PRB WITH RR=50-60S & DECREASED BREATH SOUNDS THROUGHOUT LUNG DIEZ. PT DENIES SOB OR DIFFICULTY BREATHING DESPITE TACHYPNEA. LOWER RESP CULTURE PENDING COLLECTION. EKG ORDERED, OBTAINED & GIVEN TO DR MONROY FOR REVIEW. DR GILMROE & DR MONROY NOTIFIED REGARDING ABOVE FINDINGS & 1L NORMAL SALINE IV BOLUS ORDERED X2 BAGS. ECHO ORDERED. TROPONIN ADDED TO AM LABS BY DR MONROY. ABDOMEN IS DISTENDED & FIRM WITH GUARDING/TENDERNESS NOTED WITH PALPATION TO RUQ/RMQ. HYPOACTIVE ALMOST ABSENT BOWEL SOUNDS. PATIENT DENIES N/V/. TOBAR INSITU DRAINING DARK FABIAN URINE. KCL 10MEQ IV BOLUS X2 ORDERED FOR SERUM POTASSIUM=3.7 & INFUSED PER EMAR. REPEAT EKG/TROPONIN/LACTIC ACID & COAGS ORDERED FOR 1100. RADIO MECHANIC HELPER @ BEDSIDE COMPLETING ECHO @ THIS TIME. VQ SCAN ORDERED & SCHEDULED TO BE COMPLETED IN NUCLEAR MEDICINE @ 1300.
--- NOTE | 2016-08-26 09:45 | Admission Certification ---
Admission Certification Certification Statement - As attending physician, I certify that at the time of - admission, based on clinical presentation, severity of - symptoms, need for further diagnostic testing and - therapeutic interventions, and risk of adverse outcomes - without in-hospital treatment, in my clinical assessment, - this patient requires an acute hospital stay for a minimum - of two nights or longer. I have also considered psychsocial - factors such as support system, advanced age, financial - issues, cognitive issues, and failed out-patient treatments, - past re-admission history, safety of patient, and lack of - compliance as applicable. Specific rationale supporting this admission is: ICU admission for hypotension and AMS
--- NOTE | 2016-08-26 11:41 | RADIOLOGY REPORT ---
EXAMINATION: XR PORTABLE CHEST CLINICAL INFORMATION: Volume overload. Worsening shortness of breath. COMPARISON: Chest 08/25/2016. TECHNIQUE: Portable frontal view of the chest was obtained. FINDINGS: Both lungs are hypoexpanded with the right basilar haziness suspicious for atelectasis or infiltrate. There is mild blunting of right CP angle, ? Atelectasis, pleural thickening or tiny effusion.. The heart size and pulmonary vascularity is normal. No gross bony abnormality seen. IMPRESSION: Hypoexpanded lungs with probable right lower lobe atelectasis or infiltrate. Suspect small right pleural effusion or pleural thickening.
--- NOTE | 2016-08-26 11:58 | ECHOCARDIOGRAM REPORT ---
YNES TODD Age: 60 : 1955 Gender: F Exam Date: 08/26/2016 08:52 Exam Location: [facility] Ht (in): 64 Wt (lb): 129 BSA: 1.63 BP: 105 / 85 Ordering Physician: GHANSHYAM GILMORE M Referring Physician: GHANSHYAM GILMORE MD Technologist: Barber Hearn [facility] Room Number: 103 Indications: HYPOTENSION Rhythm: Sinus tachycardia Technical Quality: Technically difficult study FINDINGS Left Ventricle Normal size left ventricle. Normal global left ventricular size, wall thickness, systolic function with no obvious regional wall motion abnormalities. Normal left ventricular ejection fraction visually estimated at >65 %. Normal left ventricular diastolic filling pattern for age. Right Ventricle The right ventricle is normal in size and function. Right Atrium The right atrium is normal in size. Left Atrium The left atrium is normal in size. The interatrial septum is intact. Mitral Valve The mitral valve is normal in structure and function. There is trace mitral regurgitation. Aortic Valve Structurally normal aortic valve without significant sclerosis or stenosis. There is no aortic regurgitation. Tricuspid Valve The tricuspid valve is normal in structure and function. There is trace tricuspid regurgitation. Pulmonary artery systolic pressure is normal. Pulmonic Valve Pulmonic valve not well visualized. Pericardium Normal pericardium without effusion. No pleural effusion. Great Vessels Normal aortic root dimension. CONCLUSIONS Technically difficult and limited study. Normal global left ventricular size, wall thickness, systolic function with no obvious regional wall motion abnormalities. No significant valve abnormalities. Physiologic valvular regurgitation. Pulmonary artery systolic pressure is normal. Joshua Kahn M.D. (Electronically Signed) Final Date: 26 Aug 2016 11:57 MEASUREMENTS (Male / Female) Normal Values 2D ECHO LV Diastolic Diameter PLAX 4.5 cm 4.2 - 5.9 / 3.9 - 5.3 cm LV Systolic Diameter PLAX 3.0 cm 2.1 - 4.0 cm LV Fractional Shortening PLAX 33.3 % 25 - 46 % LV Ejection Fraction 2D Teich 62.1 % IVS Diastolic Thickness 0.8 cm LVPW Diastolic Thickness 0.7 cm LV Relative Wall Thickness 0.3 RV Internal Dim ED PLAX 2.7 cm 1.9 - 3.8 cm LVOT Diameter 1.8 cm Aortic Root Diameter 2.8 cm LA Systolic Diameter LX 2.0 cm 3.0 - 4.0 / 2.7 - 3.8 cm Ascending Aorta Diameter 2.3 cm DOPPLER AV Peak Velocity 132.0 cm/s AV Peak Gradient 7.0 mmHg AV Mean Velocity 78.4 cm/s AV Mean Gradient 3.0 mmHg AV Velocity Time Integral 20.3 cm LVOT Peak Velocity 126.0 cm/s LVOT Peak Gradient 6.4 mmHg LVOT Mean Velocity 71.2 cm/s LVOT Mean Gradient 3.0 mmHg LVOT Velocity Time Integral 22.2 cm LVOT Stroke Volume 56.5 cm AV Area Cont Eq vti 2.8 cm AV Area Cont Eq pk 2.4 cm TR Peak Velocity 223.0 cm/s TR Peak Gradient 19.9 mmHg Right Atrial Pressure 5.0 mmHg Pulmonary Artery Systolic Pressu 24.9 mmHg Right Ventricular Systolic Press 24.9 mmHg PV Peak Velocity 134.0 cm/s PV Peak Gradient 7.2 mmHg PV Mean Velocity 81.9 cm/s PV Mean Gradient 3.0 mmHg PV Velocity Time Integral 21.8 cm LV E' Lateral Velocity 12.2 cm/s LV E' Septal Velocity 8.0 cm/s
--- NOTE | 2016-08-26 12:24 | ULTRASOUND REPORT ---
EXAMINATION: US TRIPLEX OF LOWER EXTREMITIES, BILATERAL CLINICAL INFORMATION: Tachypnea, tachycardia. Leg swelling COMPARISON: None TECHNIQUE: Color-flow triplex imaging with spectral analysis and compression Doppler were performed on the lower extremities. FINDINGS: There is normal compression, color-flow and respiratory radiation seen in bilateral common femoral, greater saphenous, superficial femoral, popliteal, tibioperoneal trunk and the calf veins. There is no right Bhardwaj's cyst. There is a small left Bhardwaj's cyst measuring 3.0 x 1.4 x 1.9 cm. IMPRESSION: Normal bilateral lower leg venous study without any evidence of DVT. Small left Bhardwaj's cyst.
--- NOTE | 2016-08-26 12:34 | Cons- Infect Disease ---
General Information and HPI Consulting Request Date of Consult: 08/26/16 Requested By: RENA COFFMAN M.D Reason for Consult: Rule out sepsis Exam Limitations: not alert/orientated, clinical condition, confusion History of Present Illness: This is a 60-year-old woman with a history of C. difficile 1 year prior to admission, COPD, anxiety and depression, admitted on August 25 with increasing confusion in the setting of weaning from her Clonazepam, diarrhea, for which she was taking Imodium, with no history of recent antibiotic use, and decreased po intake. On admission she was initially afebrile but spiked after several hours to 101.5. Blood pressure was 93/62. Her O2 sat was 98% on 100% FiO2 nonrebreather. Laboratory data revealed a white blood cell count of 18,000, with 50 segs and 37 bands, BUN/creatinine 28 and 1.8, AST/ALT 62 and 42. Urinalysis 3-5 RBC/25-50 WBCs. Chest x-ray was negative. CT of the head was negative for any acute process. CT of the chest, abdomen and pelvis revealed small bilateral pleural effusions with associated airspace disease, moderate amount of ascites within the upper abdomen and multiple air-fluid levels within mildly prominent loops of small bowel. She received 1 dose of Ceftriaxone, was then placed on Unasyn and admitted to the ICU. She has defervesced overnight and blood pressure has normalized. She has had no bowel movements since admission. She has remained disoriented and is unable to provide any history. Allergies/Medications Allergies: Coded Allergies: azithromycin (Intermediate, NAUSEA AND VOMITING 08/26/16) Home Med List: Albuterol Sulfate (Ventolin Hfa) 90 MCG HFA.AER.AD 2 PUF INH Q4-6 PRN PRN SHORTNESS OF BREATH (Reported) Baclofen 10 MG TABLET 1 TAB PO UNKNOWN (Reported) Budesonide/Formoterol Fumarate (Symbicort 160-4.5 Mcg Inhaler) 160 MCG-4.5 MCG/ ACTUATION HFA.AER.AD 2 PUF INH BID BREATHING PROBLEMS (Reported) Clonazepam 0.5 MG TABLET 1 TAB PO DAILY ANXIETY (Reported) Hydroxyzine HCl 25 MG TABLET 2 TAB PO BID UNKNOWN (Reported) Paroxetine HCl (Paxil) 10 MG TABLET 1 TAB PO DAILY ANXIETY (Reported) Propranolol HCl 10 MG TABLET 1 TAB PO QPM UNKNOWN (Reported) Sertraline HCl 100 MG TABLET 2 TAB PO DAILY MENTAL HEALTH (Reported) Tramadol HCl 50 MG TABLET 1 TAB PO BIDP PRN UNKNOWN (Reported) Trazodone HCl 100 MG TABLET 2 TAB PO QPM SLEEP (Reported) Past History Travel History Traveled to [place] past 21 day No Medical History Neurological: NONE Respiratory: COPD Gastrointestinal: gastritis, C Difficile Psychiatric: anxiety, depression History of MRSA: No History of VRE: No History of CDIFF: No Isolation History: Contact Tetanus Vaccine: 11/23/13 Surgical History Surgical History: non-contributory Psychosocial History Where Do You Live? Home Services at Home: None Smoking Status: Current Everyday Smoker Review of Systems Comments Unobtainable Exam & Diagnostic Data Last 24 Hrs of Vital Signs/I&O Vital Signs Date Time Temp Pulse Resp B/P B/P Pulse O2 O2 Flow FiO2 Mean Ox Delivery Rate 08/26 0845 99.9 134 64 126/88 08/26 0324 93 Part 60% ReBreather 08/26 0323 92 Part 60% ReBreather 08/26 0300 98.9 106 24 119/70 93 Part 60% ReBreather 08/26 0216 97.8 103 20 131/68 95 Part 60% ReBreather 08/26 0144 97.7 98 20 119/66 94 Part 60% ReBreather 08/26 0118 95.0 113 24 119/76 95 Part 60% ReBreather 08/26 0048 97.7 111 22 114/72 97 Non 8L ReBreather 08/26 0015 97.8 115 22 121/72 94 Non ReBreather 08/26 0007 97.8 08/25 2306 101.5 129 18 116/70 87 Nasal 4.0L Cannula 08/25 2036 100.7 90 18 104/67 90 Nasal 2.0L Cannula 08/25 2014 97.5 101 18 104/67 90 Nasal 2.0L Cannula 08/25 1758 100.2 117 16 106/66 94 Nasal 2.0L Cannula 08/25 1608 98.7 110 18 96/54 89 Nasal 2.0L Cannula 08/25 1426 98 Nasal 3.0L Cannula 08/25 1411 99.1 116 20 93/62 90 Room Air Intake & Output 08/26 1600 08/26 0800 08/26 0000 Intake Total 1378 Output Total 300 Balance 1078 Intake, IV 1328 Intake, Oral 50 Number 0 Bowel Movements Output, Urine 300 Patient 129 lb Weight Weight Bed scale Measurement Method Physical Exam Other Physical Findings: She is awake and alert, but disoriented, appearing uncomfortable with occasional moaning, on a Ventimask. MAXIMUM TEMPERATURE 101.5. Skin reveals no rash. HEENT exam thrush of the tongue. Neck is supple with no adenopathy. Lungs scattered rhonchi bilaterally. Heart regular rhythm with no murmur. Abdomen is distended, tender on minimal palpation over the upper abdomen, with possible rebound, decreased bowel sounds. Back no CVA tenderness. Extremities no cyanosis, clubbing or edema. Neuro is without focality. F[place] catheter in place. Last 24 Hours of Lab Results: Laboratory Tests 08/26 08/26 0503 0400 Chemistry Sodium (137 - 145 mmol/L) 144 Potassium (3.5 - 5.1 mmol/L) 3.7 Chloride (98 - 107 mmol/L) 112 H Carbon Dioxide (22 - 30 mmol/L) 18 L Anion Gap (5 - 16) 14 BUN (7 - 17 mg/dL) 38 H Creatinine (0.5 - 1.0 mg/dL) 1.7 H Estimated GFR (>60 ml/min) 31 L BUN/Creatinine Ratio (7 - 25 %) 22.4 Glucose (65 - 99 mg/dL) 83 Lactic Acid (0.7 - 2.1 mmol/L) Cancelled 2.1 Calcium (8.4 - 10.2 mg/dL) 7.4 L Magnesium (1.6 - 2.3 mg/dL) 1.9 Total Bilirubin (0.2 - 1.3 mg/dL) 1.0 AST (14 - 36 U/L) 74 H ALT (9 - 52 U/L) 56 H Alkaline Phosphatase (<127 U/L) 82 Creatine Kinase (30 - 135 U/L) 370 H Troponin I (< 0.11 ng/ml) 0.06 [id number] Pept (<125 pg/mL) 84709 H Total Protein (6.3 - 8.2 g/dL) 4.7 L Albumin (3.5 - 5.0 g/dL) 2.1 L Globulin (1.9 - 4.2 gm/dL) 2.6 Albumin/Globulin Ratio (1.1 - 2.2 %) 0.8 L Amylase (30 - 110 U/L) 153 H Lipase (23 - 300 U/L) < 10 L Hematology CBC w Diff MAN DIFF ORDERED WBC (4.8 - 10.8 /CUMM) 21.6 H RBC (4.20 - 5.40 /CUMM) 4.05 L Hgb (12.0 - 16.0 G/DL) 12.7 Hct (37 - 47 %) 38.7 MCV (81.0 - 99.0 FL) 95.4 MCH (27.0 - 31.0 PG) 31.3 H RDW (11.5 - 14.5 %) 14.5 Plt Count (130 - 400 /CUMM) 520 H MPV (7.4 - 10.4 FL) 7.9 Gran % (42.2 - 75.2 %) 95.9 H Lymphocytes % (20.5 - 51.1 %) 2.5 L Monocytes % (1.7 - 9.3 %) 1.5 L Eosinophils % (0 - 5 %) 0.1 Basophils % (0.0 - 2.0 %) 0 L Absolute Granulocytes (1.4 - 6.5 /CUMM) 20.7 H Segmented Neutrophils (42.2 - 75.2 %) 72 Band Neutrophils (0.0 - 5.0 %) 19 H Absolute Lymphocytes (1.2 - 3.4 /CUMM) 0.5 L Lymphocytes (20.5 - 51.1 %) 5 L Monocytes (1.7 - 9.3 %) 3 Absolute Monocytes (0.10 - 0.60 /CUMM) 0.3 Absolute Eosinophils (0.0 - 0.7 /CUMM) 0 Absolute Basophils (0.0 - 0.2 /CUMM) 0 Metamyelocytes (0.0 - 1.0 %) 1 Platelet Estimate (ADEQUATE) INCREASED Polychromasia 1+ Hypochromic-Microcytic 1+ Ovalocytes FEW PUBS MCHC (33.0 - 37.0 G/DL) 32.8 L Other Body Source Fld Total RBCs Counted (%) 100 08/26 08/25 08/25 0330 7590 2028 Blood Gas pH (7.35 - 7.45 PH) 7.36 pCO2 (35 - 45 TORR) 31 L pO2 (80 - 100 TORR) 91 HCO3 (21 - 28 MEQ/L) 17 L ABG O2 Sat (Measured) (>96.0 %) 95.0 L P-50 (Temp Corrected) Y Carboxyhemoglobin (1.5 - 5.0 %) 0.6 L O2 Concentration % 60% Temperature (97.0 - 100.0 FARH) 98.9 O2 Delivery Method PRB Chemistry Lactic Acid (0.7 - 2.1 mmol/L) 2.7 H 2.9 H Miscellaneous Phlebotomy Draw Site RIGHT RADIAL 08/25 1830 Toxicology Urine Opiates Screen (>2000 NG/ML) < 100.00 Methadone Screen (>300 NG/ML) 41 Barbiturate Screen (>200 NG/ML) < 60 Ur Phencyclidine Scrn (>25 NG/ML) < 6.00 Amphetamines Screen (>1000 NG/ML) < 100 U Benzodiazepines Scrn (>200 NG/ML) 565 H Urine Cocaine Screen (>300 NG/ML) < 50 Urine Cannabis Screen (>50 NG/ML) 5.80 Urines Urinalysis HEAVY H Urine Color (YEL,AMB,STR) FABIAN Urine Clarity (CLEAR) CLDY H Urine pH (5.0 - 8.0) 5.5 Ur Specific [place] (1.001 - 1.035) 1.025 Urine Protein (NEG,<30 MG/DL) 100 H Urine Ketones (NEG) TRACE H Urine Nitrite (NEG) POS H Urine Bilirubin (NEG) NEG@ICTO Urine Urobilinogen (0.1 - 1.0 EU/dl) 4.0 H Ur Leukocyte Esterase (NEG) NEG Ur Microscopic SEDIMENT EXAMINED Urine RBC (0 - 5 /HPF) 3-5 Urine WBC (0 - 2 /HPF) 25-50 H Urine Crystals 1+ CA OX H Urine Bacteria (NEG/NONE) MOD H Granular Casts (NONE /LPF) 1-3 H Urine Hemoglobin (NEG) LARGE H Urine Glucose (N MG/DL) NEG 08/25 1457 Chemistry Sodium (137 - 145 mmol/L) 143 Potassium (3.5 - 5.1 mmol/L) 3.6 Chloride (98 - 107 mmol/L) 107 Carbon Dioxide (22 - 30 mmol/L) 16 L Anion Gap (5 - 16) 20 H BUN (7 - 17 mg/dL) 28 H Creatinine (0.5 - 1.0 mg/dL) 1.8 H Estimated GFR (>60 ml/min) 29 L BUN/Creatinine Ratio (7 - 25 %) 15.6 Glucose (65 - 99 mg/dL) 98 Calcium (8.4 - 10.2 mg/dL) 8.6 Total Bilirubin (0.2 - 1.3 mg/dL) 1.0 AST (14 - 36 U/L) 62 H ALT (9 - 52 U/L) 42 Alkaline Phosphatase (<127 U/L) 75 Troponin I (< 0.11 ng/ml) 0.05 Total Protein (6.3 - 8.2 g/dL) 5.3 L Albumin (3.5 - 5.0 g/dL) 2.5 L Globulin (1.9 - 4.2 gm/dL) 2.8 Albumin/Globulin Ratio (1.1 - 2.2 %) 0.9 L TSH (0.270 - 4.200 uIU/mL) 3.730 Thyroxine (T4) (4.5 - 10.9 ug/dL) 3.6 L Thyroxine Binding Indx (23.5 - 40.5 % UPTAKE) 53.5 H Hematology CBC w Diff MAN DIFF ORDERED WBC (4.8 - 10.8 /CUMM) 18.1 H RBC (4.20 - 5.40 /CUMM) 4.34 Hgb (12.0 - 16.0 G/DL) 13.7 Hct (37 - 47 %) 41.6 MCV (81.0 - 99.0 FL) 95.9 MCH (27.0 - 31.0 PG) 31.6 H RDW (11.5 - 14.5 %) 14.3 Plt Count (130 - 400 /CUMM) 623 H MPV (7.4 - 10.4 FL) 7.5 Gran % (42.2 - 75.2 %) 95.9 H Lymphocytes % (20.5 - 51.1 %) 3.2 L Monocytes % (1.7 - 9.3 %) 0.9 L Eosinophils % (0 - 5 %) 0 Basophils % (0.0 - 2.0 %) 0 L Absolute Granulocytes (1.4 - 6.5 /CUMM) 17.4 H Segmented Neutrophils (42.2 - 75.2 %) 50 Band Neutrophils (0.0 - 5.0 %) 37 H Absolute Lymphocytes (1.2 - 3.4 /CUMM) 0.6 L Lymphocytes (20.5 - 51.1 %) 8 L Monocytes (1.7 - 9.3 %) 4 Absolute Monocytes (0.10 - 0.60 /CUMM) 0.2 Eosinophils (0 - 5.0 %) 1 Absolute Eosinophils (0.0 - 0.7 /CUMM) 0 Absolute Basophils (0.0 - 0.2 /CUMM) 0 Nucleated RBCs (0.0 - 0.0 /100WBC) 2 H Platelet Estimate (ADEQUATE) INCREASED Normocytic RBCs VERIFIED Normochromic RBCs VERIFIED PUBS MCHC (33.0 - 37.0 G/DL) 33.0 Toxicology Serum Alcohol (<10 MG/DL) < 10.0 Last 24 Hours of [place] Results: Blood cultures August 25 one bottle (the anaerobic 1) positive for gram-positive rods Urine culture August 25 negative Diagnostic Data Recent Imaging Findings: Chest x-ray August 26 small right pleural effusion with bibasilar densities CT of the head negative for any acute process. CT of the chest, abdomen and pelvis revealed small bilateral pleural effusions with associated airspace disease, moderate amount of ascites within the upper abdomen and multiple air-fluid levels within mildly prominent loops of small bowel. Assessment/Plan Assessment/Plan Impression: This is a 60-year-old woman with a history of COPD, C. difficile, depression and anxiety, on Clonazepam, which was recently been tapered, admitted on August 25 with a one week history of diarrhea, improved with Imodium, decreased po intake and increasing confusion, found to be febrile with a leukocytosis/bandemia, hypotension, responding to fluids, renal insufficiency, with a CT scan of the abdomen and pelvis revealing a moderate amount of ascites and multiple air-fluid levels, with a blood culture just reported positive for gram-positive rods. Her clinical picture is consistent with sepsis, with an intra-abdominal process most likely. Her abdominal exam suggest the possibility of peritonitis, and she should have surgical evaluation. The positive blood culture may represent Clostridium, which would be consistent with intra-abdominal sepsis. Her history of C. difficile is of interest, and the blood culture could theoretically be Clostridium difficile, though she has no history of any recent antibiotic use and her CT scan did not reveal colitis. A urinary source of sepsis is possible, with pyuria, though her urine culture is negative. Chest x-ray does suggest new densities, which could represent aspiration or atelectasis. Her encephalopathy may be toxic metabolic, either secondary to sepsis or medications, with a primary [employer]NAGER [employer] process, such as meningitis, possible but less likely. Suggestion: 1. Surgical evaluation 2. Stool for C. difficile 3. Discontinue Unasyn 4. Nystatin swish and swallow 5. Restart Ceftriaxone 1 g IV every 24 hours 6. Begin Flagyl 500 mg IV every 8 hours 7. Would add Vancomycin 500 mg po every 6 hours pending above Consult Acknowledgment - Thank you for your consult request.
--- NOTE | 2016-08-26 13:13 | ULTRASOUND REPORT ---
EXAMINATION: US ABDOMEN LIMITED CLINICAL INFORMATION: Severe abdominal right upper quadrant pain. COMPARISON: CT of the chest and abdomen done on 08/26/2016. TECHNIQUE: Real-time imaging of the right upper quadrant abdominal viscera. FINDINGS: PANCREAS: Nonvisualized, accordingly not evaluated. LIVER: There is diffuse increased liver parenchymal echogenicity, consistent with diffuse liver disease free fluid is noted around the liver. GALLBLADDER: The gallbladder is physiologically distended without evidence of stones, sludge, polyps, or pericholecystic fluid. The gallbladder wall measures 0.4 cm (up to 0.3 cm is within normal limits). COMMON BILE DUCT: Normal in caliber measuring 0.5 cm in diameter. RIGHT KIDNEY: No hydronephrosis. No renal calculi or focal parenchymal lesions. The kidney measures 8.1 cm in maximum dimension. FREE FLUID: [id number] amount of free fluid is noted predominantly around the liver. IMPRESSION: 1. The gallbladder wall shows borderline thickening without any pericholecystic fluid or gallstone. The wall thickening may represent changes secondary to presence of free fluid within the upper abdomen. 2. Diffuse heterogeneous echotexture within the liver consistent with diffuse liver disease. 3. Nonvisualized pancreas. 4. Ylguw-[id number] amount of free fluid predominantly around the liver.
--- NOTE | 2016-08-26 13:29 | RADIOLOGY REPORT ---
EXAMINATION: XR PORTABLE ABDOMEN CLINICAL INFORMATION: Distended abdomen. Evaluate for free air. COMPARISON: None TECHNIQUE: AP view of the abdomen. Supine and upright views FINDINGS: There is no evidence of free intraperitoneal air on the upright view. Nonobstructive bowel gas pattern. Visualized osseous structures are intact. Pleural thickening or trace right effusion. Subsegmental atelectasis bilateral bases. IMPRESSION: No plain radiographic evidence of free intraperitoneal air. Unremarkable bowel loops.
--- NOTE | 2016-08-26 13:36 | Incdntl Nt Psy ---
See Addendum Incidental Note Notation: Consult requested by Dr. Cartagena, Dr Dorman attending for medication recommendations for this patient on multiple psychotropics. Discussed case with resident. They will not be restarting psych meds at this point due to severe medical illness. Patient currently sees Dr. Hicks of [facility]. Plan - [facility] contacted to confirm current med list, gain collateral information, and plan for psych f/u post dc. - Restart psychotropics when medically able. - Full psychiatric evaluation once patient is able to participate in interview.
--- NOTE | 2016-08-26 13:53 | Event Note ---
Event Note Event Note: A family meeting was held with the patient's sister and power of buttonhole marker Miss Maude Last. Per Ms. Camacho's advanced directives, she does not want aggressive measures if she were deemed terminal. However at present, patient, Miss Maude Last are amenable to intubation temporarily and also central line and pressors. They would also like us to pursue chest compressions if need be. A family meeting was held in the presence of Ina Jiménez RN, Xenia Van DO and myself. For now, patient remains FULL CODE.
--- NOTE | 2016-08-26 14:00 | NUR ---
@ APPROXIMATELY 1230 PT WITH INCREASING LETHARGY & CONFUSION. CURRENTLY ORIENTED TO SELF ONLY. SINUS TACHYCARDIA W/HR 120S-130 ON KINDERGARTNERS HELPER. PT DIAPHORETIC & IS TACHYPNEIC WITH RR 50S-60S ON 60% PRB. RESPIRATORY & JAQUAN MONROY & MANDO NOTIFIED. ABG ORDERED & OBTAINED BY RT @ 1255. ABDOMEN IS DISTENDED, FIRM, TENDER & PT IS GUARDED W/PALPATION WITH ABSENT BOWEL SOUNDS TO AUSCULTATION. DR MONROY & DR GILMORE NOTIFIED. SURGICAL CONSULT ORDERED & DR AKHTAR & SURGICAL ELMA JOSE IN TO ASSESS PT. ABDOMINAL & BLE U/S OBTAINED @ 1130 PLACED ON HI FLOW NC @ 100% BY RT AT 1235PM. ABDOMINAL XRAY OBTAINED @ 1250 PER SURGICAL TEAM. AFTER BLOOD GAS RESULTS WERE OBTAINED PT WAS PLACED ON BIPAP @ [address] CARIAS BY RT. REPEAT ABG ORDERED FOR 1345. VQ SCAN CANCELLED PER DR EDWARDS PT REQUIRING BIPAP AT THIS TIME. NUCLEAR MEDICINE NOTIFED.
--- NOTE | 2016-08-26 15:02 | Cons- General Surgery ---
General Information and HPI Consulting Request Date of Consult: 08/26/16 Requested By: RENA COFFMAN M.D Reason for Consult: abdominal distension and pain. History of Present Illness: Patient is a poor historian due to her acute medical illness. With prompting and time a portion of the history was able to be elicited. She describes onset of upper abdominal pain. She also had diarrhea prior to the pain. She took some Imodium. No nausea or vomiting. She came to the emergency room for unresponsiveness. His found to be hypotensive and febrile with clinical evidence of sepsis. Been resuscitated much more alert now. Allergies/Medications Allergies: Coded Allergies: azithromycin (Intermediate, NAUSEA AND VOMITING 08/26/16) Home Med List: Albuterol Sulfate (Ventolin Hfa) 90 MCG HFA.AER.AD 2 PUF INH Q4-6 PRN PRN SHORTNESS OF BREATH (Reported) Baclofen 10 MG TABLET 1 TAB PO UNKNOWN (Reported) Budesonide/Formoterol Fumarate (Symbicort 160-4.5 Mcg Inhaler) 160 MCG-4.5 MCG/ ACTUATION HFA.AER.AD 2 PUF INH BID BREATHING PROBLEMS (Reported) Clonazepam 0.5 MG TABLET 1 TAB PO DAILY ANXIETY (Reported) Hydroxyzine HCl 25 MG TABLET 2 TAB PO BID UNKNOWN (Reported) Paroxetine HCl (Paxil) 10 MG TABLET 1 TAB PO DAILY ANXIETY (Reported) Propranolol HCl 10 MG TABLET 1 TAB PO QPM UNKNOWN (Reported) Sertraline HCl 100 MG TABLET 2 TAB PO DAILY MENTAL HEALTH (Reported) Tramadol HCl 50 MG TABLET 1 TAB PO BIDP PRN UNKNOWN (Reported) Trazodone HCl 100 MG TABLET 2 TAB PO QPM SLEEP (Reported) Current Medications: Current Medications Sig/Ry Start time Last Medication Dose Route Stop Time Status Admin Acetaminophen 1,000 MG ONCE ONE 08/25 2314 DC 08/25 IV 08/256 2317 Acetaminophen 0 .STK-MED ONE 08/25 2314 DC IV Albuterol Sulfate 2 PUF Q4-6 PRN PRN 08/26 0215 AC INH Ampicillin Sodium/ 1,500 MG Q6H 08/26 0330 DC 08/26 Sulbactam Sodium IV 0929 Sodium Chloride 100 ML Budesonide/ 2 PUF BID 08/26 1000 AC 08/26 Formoterol Fumarate INH 0940 Ceftriaxone Sodium 2,000 MG 2100 08/26 2100 DC IV Ceftriaxone Sodium 1,000 MG 2100 08/26 2100 AC IV Ceftriaxone Sodium 0 .STK-MED ONE 08/25 2024 DC .ROUTE Ceftriaxone Sodium 1,000 MG ONCE ONE 08/25 2014 DC 08/25 IV 08/25 Clonazepam 0.5 MG DAILY 08/26 1000 AC 08/26 PO 09/02 0959 0839 Dextrose/Sodium 1,000 ML Q6H 08/26 1445 AC Chloride IV Heparin Sodium 5,000 UNIT Q8 08/26 1400 DC (Porcine) SC Heparin Sodium/ 25,000 UNIT Q24H 08/26 1245 DC Dextrose IV Dextrose/Water 500 ML Metronidazole 500 MG IQ8 08/26 1600 DC N/A 1 UNIT IV Metronidazole 500 MG Q8H 08/26 1400 AC N/A 1 UNIT IV Morphine Sulfate 1 MG ONCE ONE 08/26 1415 DC IV 08/26 1416 Nystatin 5 ML 4 TIMES/DAY 08/26 1400 AC PO Paroxetine HCl 10 MG DAILY 08/26 1000 CAN PO Potassium Chloride 10 MEQ Q1H 08/26 0700 DC 08/26 IV 08/26 0801 1027 Propranolol HCl 10 MG QPM 08/26 2200 CAN PO Propranolol HCl 10 MG DAILY 08/26 1000 CAN PO Propranolol HCl 10 MG 0800 08/26 0800 DC 08/26 PO 0845 Sertraline HCl 200 MG DAILY 08/26 1000 CAN PO Sodium Chloride 1,000 ML Q6H 08/26 1430 DC IV 08/26 2028 Sodium Chloride 1,000 ML BOLUS ONE 08/26 0800 DC 08/26 IV 08/26 0859 0839 Sodium Chloride 1,000 ML BOLUS ONE 08/26 0800 DC 08/26 IV 08/26 0859 0949 Sodium Chloride 1,000 ML Q10H 08/26 0215 DC 08/26 IV 0310 Sodium Chloride 1,000 ML BOLUS ONE 08/26 0215 DC 08/26 IV 08/26 0314 0215 Sodium Chloride 1,000 ML BOLUS ONE 08/26 0130 DC 08/26 IV 08/26 0229 0141 Sodium Chloride 1,000 ML BOLUS ONE 08/25 2130 DC 08/25 IV 08/25 2229 2317 Sodium Chloride 1,000 ML BOLUS ONE 08/26 1999 DC 08/25 IV 08/25 Tramadol HCl 50 MG Q12P PRN 08/26 0715 DC PO Trazodone HCl 200 MG QPM 08/26 2200 CAN PO Past History Medical History Neurological: NONE Respiratory: COPD Gastrointestinal: gastritis C Difficile Psychiatric: anxiety, depression Surgical History Pertinent Surgical History: , breast reduction Psychosocial History Where Do You Live? Home Services at Home: None Smoking Status: Current Everyday Smoker Review of Systems Review of Systems: Unobtainable Exam & Diagnostic Data Vital Signs and I&O Vital Signs Date Time Temp Pulse Resp B/P B/P Pulse O2 O2 Flow FiO2 Mean Ox Delivery Rate 08/26 1421 93 BIPAP 60% 08/26 1309 114 93 08/26 0845 99.9 134 64 126/88 08/26 0324 93 Part 60% ReBreather 08/26 0323 92 Part 60% ReBreather 08/26 0300 98.9 106 24 119/70 93 Part 60% ReBreather 08/26 0216 97.8 103 20 131/68 95 Part 60% ReBreather 08/26 0144 97.7 98 20 119/66 94 Part 60% ReBreather 08/26 0118 95.0 113 24 119/76 95 Part 60% ReBreather 08/26 0048 97.7 111 22 114/72 97 Non 8L ReBreather 08/26 0015 97.8 115 22 121/72 94 Non ReBreather 08/26 0007 97.8 08/25 2306 101.5 129 18 116/70 87 Nasal 4.0L Cannula 08/25 2036 100.7 90 18 104/67 90 Nasal 2.0L Cannula 08/25 2014 97.5 101 18 104/67 90 Nasal 2.0L Cannula 08/25 1758 100.2 117 16 106/66 94 Nasal 2.0L Cannula 08/25 1608 98.7 110 18 96/54 89 Nasal 2.0L Cannula Intake & Output 08/26 1600 08/26 0800 08/26 0000 08/25 1600 08/25 0800 08/25 0000 Intake Total 1378 1120 Output Total 300 Balance 1078 1120 Intake, IV 1328 1000 Intake, Oral 50 120 Number 0 Bowel Movements Output, Urine 300 Patient 129 lb Weight Weight Bed scale Measurement Method Physical Exam: Gen.: She looks her stated age average habitus moderate distress, respiratory HEENT: Anicteric PERRL EOMI Chest: Increased effort and excursion on BiPAP. Nontender Abdomen: Mild distention and mild tenderness bilateral upper quadrants, right greater than left without guarding. Small reducible umbilical hernia. no mass Last 24 Hours of Labs: Laboratory Tests 08/26 08/26 08/26 1345 1255 1240 Blood Gas pH (7.35 - 7.45 PH) 7.29 *L 7.25 *L pCO2 (35 - 45 TORR) 38 39 pO2 (80 - 100 TORR) 84 45 *L HCO3 (21 - 28 MEQ/L) 17 L 17 L ABG O2 Sat (Measured) (>96.0 %) 94.0 L 72.0 L P-50 (Temp Corrected) N N Carboxyhemoglobin (1.5 - 5.0 %) 0.6 L 1.0 L O2 Concentration % 60% 100% Respiration Rate (BPM) 24 O2 Delivery Method BIPAP HFNC WITH 45L FLOW Vent Mode ST Expiratory Pressure (CM H2O P) 6 Inspiratory Pressure (CM H2O P) 14 Chemistry Sodium (137 - 145 mmol/L) 147 H Potassium (3.5 - 5.1 mmol/L) 4.0 Chloride (98 - 107 mmol/L) 114 H Carbon Dioxide (22 - 30 mmol/L) 18 L Anion Gap (5 - 16) 15 BUN (7 - 17 mg/dL) 41 H Creatinine (0.5 - 1.0 mg/dL) 1.7 H Estimated GFR (>60 ml/min) 31 L Glucose (65 - 99 mg/dL) 65 Lactic Acid (0.7 - 2.1 mmol/L) 2.4 H Calcium (8.4 - 10.2 mg/dL) 7.6 L Phosphorus (2.5 - 4.5 mg/dL) 5.0 H Magnesium (1.6 - 2.3 mg/dL) 2.0 Total Bilirubin (0.2 - 1.3 mg/dL) 1.1 AST (14 - 36 U/L) 142 H ALT (9 - 52 U/L) 78 H Troponin I (< 0.11 ng/ml) 0.05 Albumin (3.5 - 5.0 g/dL) 2.3 L Coagulation PT (9.4 - 12.5 SEC) 16.0 H INR (0.90 - 1.19) 1.53 H Miscellaneous Phlebotomy Draw Site RIGHT RADIAL RIGHT BRACHIAL 08/26 08/26 0503 0400 Chemistry Sodium (137 - 145 mmol/L) 144 Potassium (3.5 - 5.1 mmol/L) 3.7 Chloride (98 - 107 mmol/L) 112 H Carbon Dioxide (22 - 30 mmol/L) 18 L Anion Gap (5 - 16) 14 BUN (7 - 17 mg/dL) 38 H Creatinine (0.5 - 1.0 mg/dL) 1.7 H Estimated GFR (>60 ml/min) 31 L BUN/Creatinine Ratio (7 - 25 %) 22.4 Glucose (65 - 99 mg/dL) 83 Lactic Acid (0.7 - 2.1 mmol/L) Cancelled 2.1 Calcium (8.4 - 10.2 mg/dL) 7.4 L Magnesium (1.6 - 2.3 mg/dL) 1.9 Total Bilirubin (0.2 - 1.3 mg/dL) 1.0 AST (14 - 36 U/L) 74 H ALT (9 - 52 U/L) 56 H Alkaline Phosphatase (<127 U/L) 82 Creatine Kinase (30 - 135 U/L) 370 H Troponin I (< 0.11 ng/ml) 0.06 Erv-L-Vowbnuxxkce Pept (<125 pg/mL) 97631 H Total Protein (6.3 - 8.2 g/dL) 4.7 L Albumin (3.5 - 5.0 g/dL) 2.1 L Globulin (1.9 - 4.2 gm/dL) 2.6 Albumin/Globulin Ratio (1.1 - 2.2 %) 0.8 L Amylase (30 - 110 U/L) 153 H Lipase (23 - 300 U/L) < 10 L Hematology CBC w Diff MAN DIFF ORDERED WBC (4.8 - 10.8 /CUMM) 21.6 H RBC (4.20 - 5.40 /CUMM) 4.05 L Hgb (12.0 - 16.0 G/DL) 12.7 Hct (37 - 47 %) 38.7 MCV (81.0 - 99.0 FL) 95.4 MCH (27.0 - 31.0 PG) 31.3 H RDW (11.5 - 14.5 %) 14.5 Plt Count (130 - 400 /CUMM) 520 H MPV (7.4 - 10.4 FL) 7.9 Gran % (42.2 - 75.2 %) 95.9 H Lymphocytes % (20.5 - 51.1 %) 2.5 L Monocytes % (1.7 - 9.3 %) 1.5 L Eosinophils % (0 - 5 %) 0.1 Basophils % (0.0 - 2.0 %) 0 L Absolute Granulocytes (1.4 - 6.5 /CUMM) 20.7 H Segmented Neutrophils (42.2 - 75.2 %) 72 Band Neutrophils (0.0 - 5.0 %) 19 H Absolute Lymphocytes (1.2 - 3.4 /CUMM) 0.5 L Lymphocytes (20.5 - 51.1 %) 5 L Monocytes (1.7 - 9.3 %) 3 Absolute Monocytes (0.10 - 0.60 /CUMM) 0.3 Absolute Eosinophils (0.0 - 0.7 /CUMM) 0 Absolute Basophils (0.0 - 0.2 /CUMM) 0 Metamyelocytes (0.0 - 1.0 %) 1 Platelet Estimate (ADEQUATE) INCREASED Polychromasia 1+ Hypochromic-Microcytic 1+ Ovalocytes FEW PUBS MCHC (33.0 - 37.0 G/DL) 32.8 L Other Body Source Fld Total RBCs Counted (%) 100 08/26 08/25 08/25 0330 2319 2028 Blood Gas pH (7.35 - 7.45 PH) 7.36 pCO2 (35 - 45 TORR) 31 L pO2 (80 - 100 TORR) 91 HCO3 (21 - 28 MEQ/L) 17 L ABG O2 Sat (Measured) (>96.0 %) 95.0 L P-50 (Temp Corrected) Y Carboxyhemoglobin (1.5 - 5.0 %) 0.6 L O2 Concentration % 60% Temperature (97.0 - 100.0 FARH) 98.9 O2 Delivery Method PRB Chemistry Lactic Acid (0.7 - 2.1 mmol/L) 2.7 H 2.9 H Miscellaneous Phlebotomy Draw Site RIGHT RADIAL 08/25 1830 Toxicology Urine Opiates Screen (>2000 NG/ML) < 100.00 Methadone Screen (>300 NG/ML) 41 Barbiturate Screen (>200 NG/ML) < 60 Ur Phencyclidine Scrn (>25 NG/ML) < 6.00 Amphetamines Screen (>1000 NG/ML) < 100 U Benzodiazepines Scrn (>200 NG/ML) 565 H Urine Cocaine Screen (>300 NG/ML) < 50 Urine Cannabis Screen (>50 NG/ML) 5.80 Urines Urinalysis HEAVY H Urine Color (YEL,AMB,STR) FABIAN Urine Clarity (CLEAR) CLDY H Urine pH (5.0 - 8.0) 5.5 Ur Specific [place] (1.001 - 1.035) 1.025 Urine Protein (NEG,<30 MG/DL) 100 H Urine Ketones (NEG) TRACE H Urine Nitrite (NEG) POS H Urine Bilirubin (NEG) NEG@ICTO Urine Urobilinogen (0.1 - 1.0 EU/dl) 4.0 H Ur Leukocyte Esterase (NEG) NEG Ur Microscopic SEDIMENT EXAMINED Urine RBC (0 - 5 /HPF) 3-5 Urine WBC (0 - 2 /HPF) 25-50 H Urine Crystals 1+ CA OX H Urine Bacteria (NEG/NONE) MOD H Granular Casts (NONE /LPF) 1-3 H Urine Hemoglobin (NEG) LARGE H Urine Glucose (N MG/DL) NEG 08/25 1457 Chemistry Sodium (137 - 145 mmol/L) 143 Potassium (3.5 - 5.1 mmol/L) 3.6 Chloride (98 - 107 mmol/L) 107 Carbon Dioxide (22 - 30 mmol/L) 16 L Anion Gap (5 - 16) 20 H BUN (7 - 17 mg/dL) 28 H Creatinine (0.5 - 1.0 mg/dL) 1.8 H Estimated GFR (>60 ml/min) 29 L BUN/Creatinine Ratio (7 - 25 %) 15.6 Glucose (65 - 99 mg/dL) 98 Calcium (8.4 - 10.2 mg/dL) 8.6 Total Bilirubin (0.2 - 1.3 mg/dL) 1.0 AST (14 - 36 U/L) 62 H ALT (9 - 52 U/L) 42 Alkaline Phosphatase (<127 U/L) 75 Troponin I (< 0.11 ng/ml) 0.05 Total Protein (6.3 - 8.2 g/dL) 5.3 L Albumin (3.5 - 5.0 g/dL) 2.5 L Globulin (1.9 - 4.2 gm/dL) 2.8 Albumin/Globulin Ratio (1.1 - 2.2 %) 0.9 L TSH (0.270 - 4.200 uIU/mL) 3.730 Thyroxine (T4) (4.5 - 10.9 ug/dL) 3.6 L Thyroxine Binding Indx (23.5 - 40.5 % UPTAKE) 53.5 H Hematology CBC w Diff MAN DIFF ORDERED WBC (4.8 - 10.8 /CUMM) 18.1 H RBC (4.20 - 5.40 /CUMM) 4.34 Hgb (12.0 - 16.0 G/DL) 13.7 Hct (37 - 47 %) 41.6 MCV (81.0 - 99.0 FL) 95.9 MCH (27.0 - 31.0 PG) 31.6 H RDW (11.5 - 14.5 %) 14.3 Plt Count (130 - 400 /CUMM) 623 H MPV (7.4 - 10.4 FL) 7.5 Gran % (42.2 - 75.2 %) 95.9 H Lymphocytes % (20.5 - 51.1 %) 3.2 L Monocytes % (1.7 - 9.3 %) 0.9 L Eosinophils % (0 - 5 %) 0 Basophils % (0.0 - 2.0 %) 0 L Absolute Granulocytes (1.4 - 6.5 /CUMM) 17.4 H Segmented Neutrophils (42.2 - 75.2 %) 50 Band Neutrophils (0.0 - 5.0 %) 37 H Absolute Lymphocytes (1.2 - 3.4 /CUMM) 0.6 L Lymphocytes (20.5 - 51.1 %) 8 L Monocytes (1.7 - 9.3 %) 4 Absolute Monocytes (0.10 - 0.60 /CUMM) 0.2 Eosinophils (0 - 5.0 %) 1 Absolute Eosinophils (0.0 - 0.7 /CUMM) 0 Absolute Basophils (0.0 - 0.2 /CUMM) 0 Nucleated RBCs (0.0 - 0.0 /100WBC) 2 H Platelet Estimate (ADEQUATE) INCREASED Normocytic RBCs VERIFIED Normochromic RBCs VERIFIED PUBS MCHC (33.0 - 37.0 G/DL) 33.0 Toxicology Serum Alcohol (<10 MG/DL) < 10.0 Imaging Results: CT scan of the abdomen pelvis was performed early this morning in the images were reviewed. Findings show mildly dilated loops of small bowel as well as mildly dilated stomach. There is free fluid in the bilateral upper quadrants. The gallbladder is distended. No free air or bowel inflammatory changes. Plain abdominal x-ray performed at the bedside during my examination shows no evidence of free a or bowel obstruction Assessment/Plan Assessment/Plan 60-year-old woman with sepsis of unknown etiology. There is a gram-positive carlos growing out of one bottle her blood. This may represent a clostridial infection or contamination pending identification. As to the etiology of the sepsis this is still indeterminate. There is concern on examination and CT scan for an upper abdominal process. However there is no evidence of perforation or inflammatory changes of the bowel. Gallbladder is dilated and there is mild wall thickening on ultrasound. She does not have gallstones although this may be a false negative. At this point I do not feel that emergent surgical exploration is warranted. I would treat her empirically with broad-spectrum IV antibiotics and follow along with serial abdominal examination. Per my examination she seemed to be most tender in the right upper quadrant. This would correlate with her distended gallbladder with wall thickening on imaging studies. Consider HIDA scan for further evaluation. Consider NG tube if she becomes nauseous or vomits. Consult Acknowledgment - Thank you for your consult request.
--- NOTE | 2016-08-26 15:37 | Cons- Gastroenterology ---
General Information and HPI Consulting Request Date of Consult: 08/26/16 Requested By: RENA COFFMAN M.D Reason for Consult: I was just called by the ICU team a few minutes ago, HD #2, to assess abdominal pain, probable GI sepsis, new onset ascites, elevated LFTs, distended GB, and GPR bacteremia, in a patient unable to give any history, post C. diffile elsewhere, approximately 1 year [employer]. Source of Information: old records History of Present Illness: 60-year-old female, with long history of cigarette smoking, COPD, no reported EtOH, significant anxiety and depression, on numerous outpatient psychiatric medications, DJD, with reported history of C. difficile elsewhere approximately 1 year [employer], reportedly living with her sister, presenting to the [facility] ER at 2:05 p.m., BIBA from home, with diarrhea on 08/23/16. She took Imodium, & her symptoms stopped the following day. She reportedly had recent increased confusion at home with poor po intake. Her Clonazepam was being tapered by psychiatry, and this may have been confusing to some of her symptoms. Prior to this, she was mentating normally. At the moment, the patient is a full code. There was no recent outpatient antibiotic use. Upon presentation, BP 96/54, P 110, R 18, T 98.7, O2 sat 2L 89%. Although she was afebrile on presentation, she spiked to 101.5 a few hours later. The patient was cultured and initially started on IV Ceftriaxone. She then got a dose of IV Unasyn. She was seen by ID, and her current antibiotics were changed to IV Ceftriaxone and IV Flagyl, with recommendations for 1 dose po Vancomycin for possible recurrent C. difficile, as admission blood cultures were growing GPR. She was found to have positive lactate & WBC 18.1 with a left shift, and questionable SIERRA, with pyuria. Her initial LFTs were normal, except for poor synthetic function, with albumin 2.5, globulin 2.8, and a mildly elevated AST 62. The patient initially was going to be admitted to General Medicine, but became hypoxic, with greenish sputum, and was admitted to the ICU. A stool for C. difficile has been ordered, but not yet sent, as her diarrhea resolved. Numerous imaging studies were obtained on admission (see below). Chest x-ray- negative. CT of the head- NAD. CT CAP- small bilateral pleural effusions with associated airspace disease, moderate amount of ascites in the upper abdomen, & Multiple air-fluid levels within prominent loops of small bowel. RUQ sono- borderline thickening of the gallbladder wall without any pericholecystic fluid or gallstone. Diffuse heterogeneous echotexture in the liver consistent with diffuse liver disease. Small to moderate amount of free fluid predominantly around the liver. The patient has had no known recent surgical or endoscopic procedures [employer]. She was not on ASA or NSAIDS. *I am not able to get any information from the patient was currently disoriented 3. She has been seen by ID, surgery, and the ICU team. The patient was previously seen in the office for outpatient GI evaluation by Dr. Cheng. 12/02/2015: EGD for dysphagia and esophageal thickening on CT- erosive gastritis endoscopically, biopsies are unremarkable, H. pylori negative. Random biopsies of duodenum- normal villi. Whitish patches lower esophagus not typical for Fanny- minimal to mild GERD on biopsies without , without Tapia's esophagitis, without malignancy (no JOSUÉ sent). There was no mention of any fungal elements on the esophageal biopsies. 12/02/2015: Baseline colonoscopy to the cecum with a pediatric colonoscope (done for screening and for change in bowel habits)- erythematous benign-appearing diverticular stricture at 30 cm- benign biopsies, & removal of 6 benign subcm scattered colonic polyps, the majority being SSP/adenoma, TA & 1 hyperplastic. 08/25/2016: WBC 18.1 (50S/37B/8L/4M/1E/2NRBC), H/H or 2.7/41.6, MCV 95.9, RDW 14.3, PLT 623, glucose 98, BUN/Cr 28/1.8, GFR 29, Na 143, K 3.6, HCO3 16, AG 20, lactate 2.9, Ca 8.6, albumin 2.5, globulin 2.8, TBil 1.0, alk phos 75, AST 62, ALT 42, troponin .05 (neg x 3), decreased T4 3.6, elevated T3RU 53.5, TSH 3.73, [EtOH] < 10; U/A- cloudy, nathen, 1.025, 5.5, 3-5 RBC, 25-50 WBC, 1-3 granular casts, 1+ ca2+ oxalate crystals, mod bacteria, tr ketone, large Hgb, neg icto, 100+ protein, 4.0 urobilinogen,+ nitrite, neg esterase; UTox: + Benzodiazepines 565 ( > 200). 08/26/2016: WBC 21.6 (72S/19B/5L/3M/1Meta), H/H 12.7/38.7, PLT 520 08/26/2016: PT 16.0, INR 1.53 08/26/2016: Lipase < 10, lactate 2.1, Mg 1.9, BNP 10,100 08/26/2016: glu 65, BUN/Cr 41/1.7, GFR 31, na 147, K 4.0, HCO3 18, AG 15, lactate 2.4, Mg 2.0, PO4 5.0, Ca 7.6, albumin 2.3, globulin 2.7, TBil 1.1, AST 142, ALT 78 08/26/2016: ABG (60% PRB)- 7.36/31/91/95%, HCO3 17, CO HB 0.6 08/26/2016: ABG (100% NRB)-7.25/39/45/72%, HCO3 17, CO HB 1.0 (?venous) 08/26/2016: ABG (60% BIPAP)- 7.29/38/84/94%, HCO3 17, CO HB 0.6 08/25/2016: UC- negative x 1 day 08/25/2016: 1 of 2 BC- GPR 08/26/2016: EKG- ST @ 129, normal axis, normal intervals, NSST anteriolaterally. 08/25/2016: XR PORTABLE CHEST- No radiographic evidence of congestive heart failure or pneumonia. No acute pulmonary process. 08/25/2016: CT HEAD WO IV CONTRAST- No acute intracranial pathology. 08/26/2016: XRY-PORTABLE CHEST XRAY- Hypoexpanded lungs with probable right lower lobe atelectasis or infiltrate. Suspect small right pleural effusion or pleural thickening. 08/26/2016: US-EXT BILAT VENOUS DOPPLER- Normal bilateral lower leg venous study without any evidence of DVT. Small left Bhardwaj's cyst. 08/26/2016: RUQ SONO- 1. The gallbladder wall shows borderline thickening without any pericholecystic fluid or gallstone. The wall thickening may represent changes secondary to presence of free fluid within the upper abdomen. 2. Diffuse heterogeneous echotexture within the liver consistent with diffuse liver disease. 3. Nonvisualized pancreas. 4. Vtmii-pw-qavdjydv amount of free fluid predominantly around the liver. 08/26/2016: CT CHEST, ABDOMEN AND PELVIS WITHOUT CONTRAST- Moderate amount of ascites within the upper abdomen. Small bilateral pleural effusions with associated airspace disease. Multiple air-fluid levels present within mildly prominent loops of small bowel. This is nonspecific, but consider ileus or gastroenteritis. Nonspecific multifocal atelectasis. 08/26/2016: XR PORTABLE ABDOMEN- No plain radiographic evidence of free intraperitoneal air. Unremarkable bowel loops. 08/26/2016: HIDA SCAN- IMPRESSION: Normal biliary scan. Visualization of the gallbladder is evidence of a patent cystic duct and strong evidence against the diagnosis of acute cholecystitis. The common bile duct is patent. Liver function appears normal. Allergies/Medications Allergies: Coded Allergies: azithromycin (Intermediate, NAUSEA AND VOMITING 08/26/16) Home Med List: Albuterol Sulfate (Ventolin Hfa) 90 MCG HFA.AER.AD 2 PUF INH Q4-6 PRN PRN SHORTNESS OF BREATH (Reported) Baclofen 10 MG TABLET 1 TAB PO UNKNOWN (Reported) Budesonide/Formoterol Fumarate (Symbicort 160-4.5 Mcg Inhaler) 160 MCG-4.5 MCG/ ACTUATION HFA.AER.AD 2 PUF INH BID BREATHING PROBLEMS (Reported) Clonazepam 0.5 MG TABLET 1 TAB PO DAILY ANXIETY (Reported) Hydroxyzine HCl 25 MG TABLET 2 TAB PO BID UNKNOWN (Reported) Paroxetine HCl (Paxil) 10 MG TABLET 1 TAB PO DAILY ANXIETY (Reported) Propranolol HCl 10 MG TABLET 1 TAB PO QPM UNKNOWN (Reported) Sertraline HCl 100 MG TABLET 2 TAB PO DAILY MENTAL HEALTH (Reported) Tramadol HCl 50 MG TABLET 1 TAB PO BIDP PRN UNKNOWN (Reported) Trazodone HCl 100 MG TABLET 2 TAB PO QPM SLEEP (Reported) Current Medications: Current Medications Sig/Ry Start time Last Medication Dose Route Stop Time Status Admin Acetaminophen 1,000 MG ONCE ONE 08/25 2314 DC 08/25 IV 08/25 Acetaminophen 0 .STK-MED ONE 08/25 2314 DC IV Albuterol Sulfate 2 PUF Q4-6 PRN PRN 08/26 0215 AC INH Ampicillin Sodium/ 1,500 MG Q6H 08/26 0330 DC 08/26 Sulbactam Sodium IV 0929 Sodium Chloride 100 ML Budesonide/ 2 PUF BID 08/26 1000 AC 08/26 Formoterol Fumarate INH 0940 Ceftriaxone Sodium 2,000 MG 2100 08/26 2100 DC IV Ceftriaxone Sodium 1,000 MG 2100 08/26 2100 AC IV Ceftriaxone Sodium 0 .STK-MED ONE 08/25 2024 DC .ROUTE Ceftriaxone Sodium 1,000 MG ONCE ONE 08/25 2014 DC 08/25 IV 08/25 Clonazepam 0.5 MG DAILY 08/26 1000 AC 08/26 PO 09/02 0959 0839 Dextrose/Sodium 1,000 ML Q6H 08/26 1445 AC 08/26 Chloride IV 1528 Heparin Sodium 5,000 UNIT Q8 08/26 1400 DC (Porcine) SC Heparin Sodium/ 25,000 UNIT Q24H 08/26 1245 DC Dextrose IV Dextrose/Water 500 ML Metronidazole 500 MG IQ8 08/26 1600 DC N/A 1 UNIT IV Metronidazole 500 MG Q8H 08/26 1400 AC 08/26 N/A 1 UNIT IV 1528 Morphine Sulfate 1 MG ONCE ONE 08/26 1415 DC IV 08/26 1416 Nystatin 5 ML 4 TIMES/DAY 08/26 1800 AC PO Nystatin 5 ML 4 TIMES/DAY 08/26 1400 AC PO Paroxetine HCl 10 MG DAILY 08/26 1000 CAN PO Potassium Chloride 10 MEQ Q1H 08/26 0700 DC 08/26 IV 08/26 0801 1027 Propranolol HCl 10 MG QPM 08/26 2200 CAN PO Propranolol HCl 10 MG DAILY 08/26 1000 CAN PO Propranolol HCl 10 MG 0800 08/26 0800 DC 08/26 PO 0845 Sertraline HCl 200 MG DAILY 08/26 1000 CAN PO Sodium Chloride 1,000 ML Q6H 08/26 1430 DC IV 08/26 2029 Sodium Chloride 1,000 ML BOLUS ONE 08/26 0800 DC 08/26 IV 08/26 0859 0839 Sodium Chloride 1,000 ML BOLUS ONE 08/26 0800 DC 08/26 IV 08/26 0859 0949 Sodium Chloride 1,000 ML Q10H 08/26 0215 DC 08/26 IV 0310 Sodium Chloride 1,000 ML BOLUS ONE 08/26 0215 DC 08/26 IV 08/26 0314 0215 Sodium Chloride 1,000 ML BOLUS ONE 08/26 0130 DC 08/26 IV 08/26 0229 0141 Sodium Chloride 1,000 ML BOLUS ONE 08/25 2130 DC 08/25 IV 08/25 222 2317 Sodium Chloride 1,000 ML BOLUS ONE 08/26 1999 DC 08/25 IV 08/25 Tramadol HCl 50 MG Q12P PRN 08/26 0715 DC PO Trazodone HCl 200 MG QPM 08/26 2200 CAN PO Vancomycin HCl 500 MG Q6 08/26 1800 AC PO Past History Travel History Traveled to [place] past 21 day No Medical History Blood Transfusion Hx: No (none in Draft) Neurological: NONE EENT: NONE Cardiovascular: NONE Respiratory: COPD Gastrointestinal: gastritis, HP-neg C Difficile 2015, diverticulosis coli Colonic SSP/adenoma/TA Hepatic: NONE Renal: SIERRA (? 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 Home Who Do You Live With? sister, Maude Last ([phone]) Services at Home: None Primary Language: Macedonian Smoking Status: Current Everyday Smoker ETOH Use: reportedly none Illicit Drug Use: benzodiazepines (? if rxd) Living Will? no Power of Director Agricultural Services/HCP? no (pt's sister is closest ) Other Social History: Limited- unobtainable from pt. Per computer, & lives with sister, Maude Last, but there is no definite POA. Long time smoker with COPD. Reportedly no EtOH. On benzodiazepines- ? if rxd. Functional Ability ADLs Unknown: dressing, eating, toileting, bathing. Ambulation: unknown IADLs Unknown: shopping, housework, finances, food prep, telephone, transportation, medication admin. Employment History Employment: unknown ECHO Results (as available) Date of last Echo 08/26/16 EF% 65 Review of Systems Review of Systems: Full 14 point review of systems currently unobtainable, as patient is disoriented x 3. Review of Systems All Other Systems: Reviewed and Negative (unobtainable) Exam & Diagnostic Data Vital Signs and I&O Vital Signs Date Time Temp Pulse Resp B/P B/P Pulse O2 O2 Flow FiO2 Mean Ox Delivery Rate 08/26 1530 112 94 08/26 1421 93 BIPAP 60% 08/26 1309 114 93 08/26 1200 94 Part 60% ReBreather 08/26 0845 99.9 134 64 126/88 08/26 0800 99.9 134 60 126/88 94 Part 60% ReBreather 08/26 0800 94 Part 60% ReBreather 08/26 0324 93 Part 60% ReBreather 08/26 0323 92 Part 60% ReBreather 08/26 0300 98.9 106 24 119/70 93 Part 60% ReBreather 08/26 0216 97.8 103 20 131/68 95 Part 60% ReBreather 08/26 0144 97.7 98 20 119/66 94 Part 60% ReBreather 08/26 0118 95.0 113 24 119/76 95 Part 60% ReBreather 08/26 0048 97.7 111 22 114/72 97 Non 8L ReBreather 08/26 0015 97.8 115 22 121/72 94 Non ReBreather 08/26 0007 97.8 08/25 2306 101.5 129 18 116/70 87 Nasal 4.0L Cannula 08/25 2036 100.7 90 18 104/67 90 Nasal 2.0L Cannula 08/25 2015 97.5 101 18 104/67 90 Nasal 2.0L Cannula 08/25 1758 100.2 117 16 106/66 94 Nasal 2.0L Cannula Intake & Output 08/26 1600 08/26 0400 08/25 1600 08/25 0400 08/24 1600 08/24 0400 Intake Total 4485 1120 Output Total 550 Balance 3935 1120 Intake, IV 4405 1000 Intake, Oral 80 120 Number 0 Bowel Movements Output, Urine 550 Patient 129 lb Weight Weight Bed scale Measurement Method Physical Exam: Well-developed, slightly malnourished female, looking much older than her stated age, in no moderate distress, on 60% BiPAP. Sclera anicteric. Conjunctiva pink. Oropharynx clear. Dry mucous membranes. No oral thrush. No aphthous ulcers. There is no adenopathy, thyromegaly, or JVD. No peripheral stigmata of inflammatory bowel disease or chronic liver disease on exam. No spiders on the anterior chest wall. Breast & pelvic: API. No CVA tenderness. Lungs: clear to A &P, with slightly prolonged expiratory phase & decreased BS at the bases B/L, R > L. No wheezing, rales, or rhonchi. Heart exam: regular rate rhythm, S1 and S2, without any murmur. Abdominal exam:hypoactive bowel sounds, mildly distended belly, LUQ > RUQ tenderness with mild involuntary guarding, without rebound. No mass. No organomegaly. No definite fluid shift. No pulsatile mass. No epigastric bruit. Digital rectal exam: deferred at present, as patient is in distress and [facility]. Extremities: without C, C, or E. No palpable cords. + DJD. No rash. No palmar erythema. No Dupuytren's contractures. Distal pulses 1+ bilaterally. DTRs 1+ bilaterally. Disoriented x 3. Moves all extremities. Not alert enough for detailed neuro exam. No tremor. No asterixis. No cogwheeling. No menigeal signs. Results Pertinent Lab Results: Laboratory Tests 08/26 08/26 08/26 1639 1345 1255 Blood Gas pH (7.35 - 7.45 PH) 7.29 *L 7.25 *L pCO2 (35 - 45 TORR) 38 39 pO2 (80 - 100 TORR) 84 45 *L HCO3 (21 - 28 MEQ/L) 17 L 17 L ABG O2 Sat (Measured) (>96.0 %) 94.0 L 72.0 L P-50 (Temp Corrected) N N Carboxyhemoglobin (1.5 - 5.0 %) 0.6 L 1.0 L O2 Concentration % 60% 100% Respiration Rate (BPM) 24 O2 Delivery Method BIPAP HFNC WITH 45L FLOW Vent Mode ST Expiratory Pressure (CM H2O P) 6 Inspiratory Pressure (CM H2O P) 14 Chemistry Lactic Acid Cancelled Miscellaneous Phlebotomy Draw Site RIGHT RADIAL RIGHT BRACHIAL 08/26 08/26 08/26 1240 0503 0400 Chemistry Sodium (137 - 145 mmol/L) 147 H 144 Potassium (3.5 - 5.1 mmol/L) 4.0 3.7 Chloride (98 - 107 mmol/L) 114 H 112 H Carbon Dioxide (22 - 30 mmol/L) 18 L 18 L Anion Gap (5 - 16) 15 14 BUN (7 - 17 mg/dL) 41 H 38 H Creatinine (0.5 - 1.0 mg/dL) 1.7 H 1.7 H Estimated GFR (>60 ml/min) 31 L 31 L BUN/Creatinine Ratio (7 - 25 %) 22.4 Glucose (65 - 99 mg/dL) 65 83 Lactic Acid (0.7 - 2.1 mmol/L) 2.4 H Cancelled 2.1 Calcium (8.4 - 10.2 mg/dL) 7.6 L 7.4 L Phosphorus (2.5 - 4.5 mg/dL) 5.0 H Magnesium (1.6 - 2.3 mg/dL) 2.0 1.9 Total Bilirubin (0.2 - 1.3 mg/dL) 1.1 1.0 AST (14 - 36 U/L) 142 H 74 H ALT (9 - 52 U/L) 78 H 56 H Alkaline Phosphatase (<127 U/L) 82 Creatine Kinase (30 - 135 U/L) 370 H Troponin I (< 0.11 ng/ml) 0.05 0.06 Cti-C-Vervvdxrjks Pept (<125 pg/mL) 88756 H Total Protein (6.3 - 8.2 g/dL) 4.7 L Albumin (3.5 - 5.0 g/dL) 2.3 L 2.1 L Globulin (1.9 - 4.2 gm/dL) 2.6 Albumin/Globulin Ratio (1.1 - 2.2 %) 0.8 L Amylase (30 - 110 U/L) 153 H Lipase (23 - 300 U/L) < 10 L Coagulation PT (9.4 - 12.5 SEC) 16.0 H INR (0.90 - 1.19) 1.53 H Hematology CBC w Diff MAN DIFF ORDERED WBC (4.8 - 10.8 /CUMM) 21.6 H RBC (4.20 - 5.40 /CUMM) 4.05 L Hgb (12.0 - 16.0 G/DL) 12.7 Hct (37 - 47 %) 38.7 MCV (81.0 - 99.0 FL) 95.4 MCH (27.0 - 31.0 PG) 31.3 H RDW (11.5 - 14.5 %) 14.5 Plt Count (130 - 400 /CUMM) 520 H MPV (7.4 - 10.4 FL) 7.9 Gran % (42.2 - 75.2 %) 95.9 H Lymphocytes % (20.5 - 51.1 %) 2.5 L Monocytes % (1.7 - 9.3 %) 1.5 L Eosinophils % (0 - 5 %) 0.1 Basophils % (0.0 - 2.0 %) 0 L Absolute Granulocytes (1.4 - 6.5 /CUMM) 20.7 H Segmented Neutrophils (42.2 - 75.2 %) 72 Band Neutrophils (0.0 - 5.0 %) 19 H Absolute Lymphocytes (1.2 - 3.4 /CUMM) 0.5 L Lymphocytes (20.5 - 51.1 %) 5 L Monocytes (1.7 - 9.3 %) 3 Absolute Monocytes (0.10 - 0.60 /CUMM) 0.3 Absolute Eosinophils (0.0 - 0.7 /CUMM) 0 Absolute Basophils (0.0 - 0.2 /CUMM) 0 Metamyelocytes (0.0 - 1.0 %) 1 Platelet Estimate (ADEQUATE) INCREASED Polychromasia 1+ Hypochromic-Microcytic 1+ Ovalocytes FEW PUBS MCHC (33.0 - 37.0 G/DL) 32.8 L Other Body Source Fld Total RBCs Counted (%) 100 08/26 08/25 08/25 0330 2319 2028 Blood Gas pH (7.35 - 7.45 PH) 7.36 pCO2 (35 - 45 TORR) 31 L pO2 (80 - 100 TORR) 91 HCO3 (21 - 28 MEQ/L) 17 L ABG O2 Sat (Measured) (>96.0 %) 95.0 L P-50 (Temp Corrected) Y Carboxyhemoglobin (1.5 - 5.0 %) 0.6 L O2 Concentration % 60% Temperature (97.0 - 100.0 FARH) 98.9 O2 Delivery Method PRB Chemistry Lactic Acid (0.7 - 2.1 mmol/L) 2.7 H 2.9 H Miscellaneous Phlebotomy Draw Site RIGHT RADIAL 08/25 1830 Toxicology Urine Opiates Screen (>2000 NG/ML) < 100.00 Methadone Screen (>300 NG/ML) 41 Barbiturate Screen (>200 NG/ML) < 60 Ur Phencyclidine Scrn (>25 NG/ML) < 6.00 Amphetamines Screen (>1000 NG/ML) < 100 U Benzodiazepines Scrn (>200 NG/ML) 565 H Urine Cocaine Screen (>300 NG/ML) < 50 Urine Cannabis Screen (>50 NG/ML) 5.80 Urines Urinalysis HEAVY H Urine Color (YEL,AMB,STR) NATHEN Urine Clarity (CLEAR) CLDY H Urine pH (5.0 - 8.0) 5.5 Ur Specific [place] (1.001 - 1.035) 1.025 Urine Protein (NEG,<30 MG/DL) 100 H Urine Ketones (NEG) TRACE H Urine Nitrite (NEG) POS H Urine Bilirubin (NEG) NEG@ICTO Urine Urobilinogen (0.1 - 1.0 EU/dl) 4.0 H Ur Leukocyte Esterase (NEG) NEG Ur Microscopic SEDIMENT EXAMINED Urine RBC (0 - 5 /HPF) 3-5 Urine WBC (0 - 2 /HPF) 25-50 H Urine Crystals 1+ CA OX H Urine Bacteria (NEG/NONE) MOD H Granular Casts (NONE /LPF) 1-3 H Urine Hemoglobin (NEG) LARGE H Urine Glucose (N MG/DL) NEG 08/25 1457 Chemistry Sodium (137 - 145 mmol/L) 143 Potassium (3.5 - 5.1 mmol/L) 3.6 Chloride (98 - 107 mmol/L) 107 Carbon Dioxide (22 - 30 mmol/L) 16 L Anion Gap (5 - 16) 20 H BUN (7 - 17 mg/dL) 28 H Creatinine (0.5 - 1.0 mg/dL) 1.8 H Estimated GFR (>60 ml/min) 29 L BUN/Creatinine Ratio (7 - 25 %) 15.6 Glucose (65 - 99 mg/dL) 98 Calcium (8.4 - 10.2 mg/dL) 8.6 Total Bilirubin (0.2 - 1.3 mg/dL) 1.0 AST (14 - 36 U/L) 62 H ALT (9 - 52 U/L) 42 Alkaline Phosphatase (<127 U/L) 75 Troponin I (< 0.11 ng/ml) 0.05 Total Protein (6.3 - 8.2 g/dL) 5.3 L Albumin (3.5 - 5.0 g/dL) 2.5 L Globulin (1.9 - 4.2 gm/dL) 2.8 Albumin/Globulin Ratio (1.1 - 2.2 %) 0.9 L TSH (0.270 - 4.200 uIU/mL) 3.730 Thyroxine (T4) (4.5 - 10.9 ug/dL) 3.6 L Thyroxine Binding Indx (23.5 - 40.5 % UPTAKE) 53.5 H Hematology CBC w Diff MAN DIFF ORDERED WBC (4.8 - 10.8 /CUMM) 18.1 H RBC (4.20 - 5.40 /CUMM) 4.34 Hgb (12.0 - 16.0 G/DL) 13.7 Hct (37 - 47 %) 41.6 MCV (81.0 - 99.0 FL) 95.9 MCH (27.0 - 31.0 PG) 31.6 H RDW (11.5 - 14.5 %) 14.3 Plt Count (130 - 400 /CUMM) 623 H MPV (7.4 - 10.4 FL) 7.5 Gran % (42.2 - 75.2 %) 95.9 H Lymphocytes % (20.5 - 51.1 %) 3.2 L Monocytes % (1.7 - 9.3 %) 0.9 L Eosinophils % (0 - 5 %) 0 Basophils % (0.0 - 2.0 %) 0 L Absolute Granulocytes (1.4 - 6.5 /CUMM) 17.4 H Segmented Neutrophils (42.2 - 75.2 %) 50 Band Neutrophils (0.0 - 5.0 %) 37 H Absolute Lymphocytes (1.2 - 3.4 /CUMM) 0.6 L Lymphocytes (20.5 - 51.1 %) 8 L Monocytes (1.7 - 9.3 %) 4 Absolute Monocytes (0.10 - 0.60 /CUMM) 0.2 Eosinophils (0 - 5.0 %) 1 Absolute Eosinophils (0.0 - 0.7 /CUMM) 0 Absolute Basophils (0.0 - 0.2 /CUMM) 0 Nucleated RBCs (0.0 - 0.0 /100WBC) 2 H Platelet Estimate (ADEQUATE) INCREASED Normocytic RBCs VERIFIED Normochromic RBCs VERIFIED PUBS MCHC (33.0 - 37.0 G/DL) 33.0 Toxicology Serum Alcohol (<10 MG/DL) < 10.0 Imaging/Other Studies: 08/26/2016: EKG- ST @ 129, normal axis, normal intervals, NSST anteriolaterally. 08/25/2016: XR PORTABLE CHEST- No radiographic evidence of congestive heart failure or pneumonia. No acute pulmonary process. 08/25/2016: CT HEAD WO IV CONTRAST- No acute intracranial pathology. 08/26/2016: XRY-PORTABLE CHEST XRAY- Hypoexpanded lungs with probable right lower lobe atelectasis or infiltrate. Suspect small right pleural effusion or pleural thickening. 08/26/2016: US-EXT BILAT VENOUS DOPPLER- Normal bilateral lower leg venous study without any evidence of DVT. Small left Bhardwaj's cyst. 08/26/2016: RUQ SONO- 1. The gallbladder wall shows borderline thickening without any pericholecystic fluid or gallstone. The wall thickening may represent changes secondary to presence of free fluid within the upper abdomen. 2. Diffuse heterogeneous echotexture within the liver consistent with diffuse liver disease. 3. Nonvisualized pancreas. 4. Mehyx-fj-pitxropa amount of free fluid predominantly around the liver. 08/26/2016: CT CHEST, ABDOMEN AND PELVIS WITHOUT CONTRAST- Moderate amount of ascites within the upper abdomen. Small bilateral pleural effusions with associated airspace disease. Multiple air-fluid levels present within mildly prominent loops of small bowel. This is nonspecific, but consider ileus or gastroenteritis. Nonspecific multifocal atelectasis. 08/26/2016: XR PORTABLE ABDOMEN- No plain radiographic evidence of free intraperitoneal air. Unremarkable bowel loops. 08/26/2016: HIDA SCAN- IMPRESSION: Normal biliary scan. Visualization of the gallbladder is evidence of a patent cystic duct and strong evidence against the diagnosis of acute cholecystitis. The common bile duct is patent. Liver function appears normal. Assessment/Plan Assessment/Recommendations: 60-year-old female, with long history of cigarette smoking, COPD, no reported EtOH, significant anxiety and depression, on numerous outpatient psychiatric medications, DJD, with reported history of C. difficile elsewhere approximately 1 year [employer], reportedly living with her sister, presenting to the [facility] ER at 2:05 p.m., BIBA from home, with diarrhea on 08/23/16. She took Imodium, & her symptoms stopped the following day. She reportedly had recent increased confusion at home with poor po intake. Her Clonazepam was being tapered by psychiatry, and this may have been confusing to some of her symptoms. Prior to this, she was mentating normally. At the moment, the patient is a full code. There was no recent outpatient antibiotic use. Upon presentation, BP 96/54, P 110, R 18, T 98.7, O2 sat 2L 89%. Although she was afebrile on presentation, she spiked to 101.5 a few hours later. The patient was cultured and initially started on IV Ceftriaxone. She then got a dose of IV Unasyn. She was seen by ID, and her current antibiotics were changed to IV Ceftriaxone and IV Flagyl, with recommendations for 1 dose po Vancomycin for possible recurrent C. difficile, as admission blood cultures were growing GPR. She was found to have positive lactate & WBC 18.1 with a left shift, and questionable SIERRA, with pyuria. Her initial LFTs were normal, except for poor synthetic function, with albumin 2.5, globulin 2.8, and a mildly elevated AST 62. The patient initially was going to be admitted to General Medicine, but became hypoxic, with greenish sputum, and was admitted to the ICU. A stool for C. difficile has been ordered, but not yet sent, as her diarrhea resolved. Numerous imaging studies were obtained on admission (see below). Chest x-ray- negative. CT of the head- NAD. CT CAP- small bilateral pleural effusions with associated airspace disease, moderate amount of ascites in the upper abdomen, & Multiple air-fluid levels within prominent loops of small bowel. RUQ sono- borderline thickening of the gallbladder wall without any pericholecystic fluid or gallstone. Diffuse heterogeneous echotexture in the liver consistent with diffuse liver disease. Small to moderate amount of free fluid predominantly around the liver. The patient has had no known recent surgical or endoscopic procedures [employer]. She was not on ASA or NSAIDS. *I am not able to get any information from the patient was currently disoriented 3. She has been seen by ID, surgery, and the ICU team. The patient was previously seen in the office for outpatient GI evaluation by Dr. Cheng. 12/02/2015: EGD for dysphagia and esophageal thickening on CT- erosive gastritis endoscopically, biopsies are unremarkable, H. pylori negative. Random biopsies of duodenum- normal villi. Whitish patches lower esophagus not typical for Fanny- minimal to mild GERD on biopsies without , without Tapia's esophagitis, without malignancy (no JOSUÉ sent). There was no mention of any fungal elements on the esophageal biopsies. 12/02/2015: Baseline colonoscopy to the cecum with a pediatric colonoscope (done for screening and for change in bowel habits)- erythematous benign-appearing diverticular stricture at 30 cm- benign biopsies, & removal of 6 benign subcm scattered colonic polyps, the majority being SSP/adenoma, TA & 1 hyperplastic. 08/25/2016: WBC 18.1 (50S/37B/8L/4M/1E/2NRBC), H/H or 2.7/41.6, MCV 95.9, RDW 14.3, PLT 623, glucose 98, BUN/Cr 28/1.8, GFR 29, Na 143, K 3.6, HCO3 16, AG 20, lactate 2.9, Ca 8.6, albumin 2.5, globulin 2.8, TBil 1.0, alk phos 75, AST 62, ALT 42, troponin .05 (neg x 3), decreased T4 3.6, elevated T3RU 53.5, TSH 3.73, [EtOH] < 10; U/A- cloudy, nathen, 1.025, 5.5, 3-5 RBC, 25-50 WBC, 1-3 granular casts, 1+ ca2+ oxalate crystals, mod bacteria, tr ketone, large Hgb, neg icto, 100+ protein, 4.0 urobilinogen,+ nitrite, neg esterase; UTox: + Benzodiazepines 565 ( > 200). 08/26/2016: WBC 21.6 (72S/19B/5L/3M/1Meta), H/H 12.7/38.7, PLT 520 08/26/2016: PT 16.0, INR 1.53 08/26/2016: Lipase < 10, lactate 2.1, Mg 1.9, BNP 10,100 08/26/2016: glu 65, BUN/Cr 41/1.7, GFR 31, na 147, K 4.0, HCO3 18, AG 15, lactate 2.4, Mg 2.0, PO4 5.0, Ca 7.6, albumin 2.3, globulin 2.7, TBil 1.1, AST 142, ALT 78 08/26/2016: ABG (60% PRB)- 7.36/31/91/95%, HCO3 17, CO HB 0.6 08/26/2016: ABG (100% NRB)-7.25/39/45/72%, HCO3 17, CO HB 1.0 (?venous) 08/26/2016: ABG (60% BIPAP)- 7.29/38/84/94%, HCO3 17, CO HB 0.6 08/25/2016: UC- negative x 1 day 08/25/2016: 1 of 2 BC- GPR 08/26/2016: EKG- ST @ 129, normal axis, normal intervals, NSST anteriolaterally. 08/25/2016: XR PORTABLE CHEST- No radiographic evidence of congestive heart failure or pneumonia. No acute pulmonary process. 08/25/2016: CT HEAD WO IV CONTRAST- No acute intracranial pathology. 08/26/2016: XRY-PORTABLE CHEST XRAY- Hypoexpanded lungs with probable right lower lobe atelectasis or infiltrate. Suspect small right pleural effusion or pleural thickening. 08/26/2016: US-EXT BILAT VENOUS DOPPLER- Normal bilateral lower leg venous study without any evidence of DVT. Small left Bhardwaj's cyst. 08/26/2016: RUQ SONO- 1. The gallbladder wall shows borderline thickening without any pericholecystic fluid or gallstone. The wall thickening may represent changes secondary to presence of free fluid within the upper abdomen. 2. Diffuse heterogeneous echotexture within the liver consistent with diffuse liver disease. 3. Nonvisualized pancreas. 4. Elvir-qz-tnxovmeu amount of free fluid predominantly around the liver. 08/26/2016: CT CHEST, ABDOMEN AND PELVIS WITHOUT CONTRAST- Moderate amount of ascites within the upper abdomen. Small bilateral pleural effusions with associated airspace disease. Multiple air-fluid levels present within mildly prominent loops of small bowel. This is nonspecific, but consider ileus or gastroenteritis. Nonspecific multifocal atelectasis. 08/26/2016: XR PORTABLE ABDOMEN- No plain radiographic evidence of free intraperitoneal air. Unremarkable bowel loops. 08/26/2016: HIDA SCAN- IMPRESSION: Normal biliary scan. Visualization of the gallbladder is evidence of a patent cystic duct and strong evidence against the diagnosis of acute cholecystitis. The common bile duct is patent. Liver function appears normal. *My initial thoughts were rule out C. difficile, rule out acalculus cholecystitis, rule out perforated viscus (extensive diverticular disease on : colonoscopy, with benign stricture at 30 cm; rule out PUD, etc.). Having stated that, there was no overt colitis or diverticulitis on CT. Initially, I advised continuing broad-spectrum antibiotics to cover both the gut and potential C. difficile (on IV Ceftriaxone, Flagyl, & to get po Vanco), IVF, supplemental O2, DVT prophylaxis, obtaining a HIDA scan, and having IR do a diagnostic tap of the ascites, to help determine the etiology of this. Certainly, if the tap showed polymicrobial organisms, this would be suspicious for a perforation. *While the patient was down getting a HIDA scan (which was subsequently negative ), I asked the ICU housestaff to contact IR, for a diagnostic abdominal tap. * They spoke with Dr. Marin, of [facility], who reviewed the CT and stated there was free air. Radiology contacted Dr. Armendariz, of surgery, for definitive treatment. The ICU house staff has discussed the case with surgery, as well. The ICU team informed the patient's sister, Maude Last ) of the impending surgery. The case was discussed with the ICU housestaff & with Dr. Tong. Further inpatient GI follow up, as needed. Please call. ( The patient should follow-up with Dr. Cheng as an outpatient, for colon polyp surveillance, as he previously advised). 1 hour of ICU care was spent on the patient. Problem List: 1. Perforated viscus 2. Hypotension 3. Lactic acidosis 4. Sepsis 5. History of Clostridium difficile infection 6. Malnutrition 7. Diverticulosis of colon 8. History of adenomatous polyp of colon Copies To: RENA COFFMAN M.D; LAN BAILEY,ROVERTO; SUHAIL BAILEY,RAFAEL Coe; FREDO BAILEY, ROVERTO; HERMILO BAILEY,MARY Berg; ARETHA BAILEY,GARY Consult Acknowledgment - Thank you for your consult request.
[2016-08-26 16:00] VITALS: BP 126/86
--- NOTE | 2016-08-26 17:32 | NUCLEAR MEDICINE REPORT ---
BILIARY TRACT IMAGING STUDY CLINICAL INDICATION: Right upper quadrant tenderness. PROCEDURE: Scintillation camera images were obtained over the abdomen for an observation of 45 minutes following the intravenous administration of 5.1 millicuries technetium 99m Choletec. FINDINGS: There is good concentration of activity in the liver by 5 minutes post injection. Biliary activity is well visualized by 15 minutes, and there is good visualization of small bowel activity by 30 minutes. The gallbladder is well visualized by 35 minutes. IMPRESSION: Normal biliary scan. Visualization of the gallbladder is evidence of a patent cystic duct and strong evidence against the diagnosis of acute cholecystitis. The common bile duct is patent. Liver function appears normal.
--- NOTE | 2016-08-26 17:42 | Event Note ---
Event Note Event Note: I contacted IR as per GI recommendations for a diagnostic paracentesis of the moderate ascites seen on CT to rule out infection/peritonitis 2/2 perforation. One bottle of blood cultures are growing gram positive rods. ( [facility]) reviewed the CT films and informed me that there appears to be free air sub diaphragmatic on the left and right as well as some free air within the small bowel clearly indicating perforation. This was not read on the initial CT report. He discussed the same with Dr. Armendariz who initially had no plans to take the patient to the OR as per the original CT report. After discussion with IR, surgery, a decision was made to take the patient to for emergent surgical exploration as the patient's sepsis is likely due to a perforated viscus. She is currently on IV ceftriaxone and Flagyl. Will vancomycin (for C. difficile )could not be administered as she is being maintained nothing by mouth for altered mental status. The above plan was discussed with patient's sister Maude Last([phone] ). Patient does not have a living will or POA, however sister wants all resuscitation ( FULL CODE) at this time PS: HIDA scan was negative for acute cholecystitis.
[2016-08-26 18:15] VITALS: BP 128/86
--- NOTE | 2016-08-26 18:30 | NUR ---
SURGICAL TEAM REQUESTING HIDA SCAN TO RULE OUT CHOLECYSTITIS. NUCLEAR MED NOTIFIED OF ORDER & PT TRANSPORTED ACCOMPANIED BY THIS RN & DISTRIBUTION @ 1545 ON 100% NRB FOR TRANSPORT THEN PLACED ON BIPAP W/RR=24, FIO2=60%. O2 SATS=92-94%. @ APPROXIMATELY 1640-DR AKHTAR CALLED NUCLEAR MEDICINE & NOTIFIED THIS MACHINE CEMENTER THAT THE RADIOLOGIST REVIEWED THE IMAGES FROM EARLIER & THAT THE PT WOULD BE GOING TO THE OR FOR EXPLORATORY LAP ONCE HIDA SCAN IS COMPLETED. DR AKHTAR REQUESTED THAT PT BE PREPPED FOR SX IN ICU AFTER HIDA SCAN COMPLETED & AWAIT THE OR TO CALL FOR THE PATIENT. ACCUCHECK=66 THEN 76 & DR MONROY NOTIFIED & ORDERED 1/2 AMP OF D50% IVP X1 & D/C'D NS IVF & STARTED D5-1/2NS @ 150ML/HR X1 BAG. HIDA SCAN COMPLETED @ 1710 & PT THEN TRANSFERRED TO OR @ 1820 ACCOMPANIED BY THIS RN & DISTRIBUTION ON 100% NRB W/FINGERPROBE O2 SAT=93%. HR IS 100S-110 SINUS TACHYCARDIA ON MONITOR. TOBAR INSITU. ALPJersey SLEEVES TO BLE. REPORT GIVEN TO ANESTHESIA DR Garzon & SHUBHAM IN OR HOLDING AREA.
--- NOTE | 2016-08-26 18:57 | PN- General Surgery ---
Surgical Brief Attending Note Brief Attending Note: HIDA shows filling of gallbladder. After re-review of admission CT abdomen, it appears there is free air under the diaphragm not previously recognized. I discussed with radiologist who called to inform me. In light of the new findings and worsening septic process, I feel that emergent operative intervention is the best avenue. Discussed with patient and her decision maker, her sister Maude Last. All are in agreement to undergo exploratory laparotomy.
--- NOTE | 2016-08-26 21:22 | Operative Report ---
Operative/Inv Procedure Report Surgery Date: 08/26/16 Name of Procedure: Sigmoid colectomy with end colostomy Drainage of intraperitoneal/pelvic abscess Pre-Operative Diagnosis: Perforated viscus Post-Operative Diagnosis: Perforated sigmoid diverticulitis with diffuse peritonitis and pericolonic abscess Estimated Blood Loss: less than 50ml Surgeon/Land Planner: Kb Armendariz M.D./ELMA Chi Anesthesia: general endotracheal tube Drains: 15 Hebrew Francis-Kelly prepped drain placed in the pelvic abscess cavity Specimens: Sigmoid colon Microbiology: Peritoneal fluid Operative Indication: see immediate preoperative note Operative/Procedure Note Note: After informed consent from the patient and her conservator, sister, she is brought to the operating room and laid supine. Gen. anesthesia was obtained and her abdomen was prepped and draped. Midline epigastric incision was made with the presumptive diagnosis of a perforated ulcer. We came down to subcutaneous tissues tissues through the fascia and incised it with cautery. The peritoneum was entered sharply. The abdomen was explored. The epigastric region there is turbid ascites, foul-smelling. Down in the right pericolonic gutter there was gross purulence another specimen was sent for culture. The stomach and proximal duodenum were normal. Lengthen her incision inferiorly down to the pelvis. Further down we got more purulence encountered. There were interloop abscesses of the small bowel throughout the peritoneal cavity. These were digitally evacuated. We ran the small bowel from the ligament of Treitz to the terminal ileum. There is no evidence of small bowel perforation. The right colon was normal as was the appendix. The transverse colon was normal. We then looked at this pelvis. Sigmoid colon had evidence of chronic diverticulitis. He was a masslike structure lateral to the colon with visible purulence emanating from it. It appeared to be a tubo-ovarian process. We disconnected it from the colon bluntly. We then encountered a moderate size hole in the colon. It appeared that the colon was perforated and partially contained by this olegario- pelvic process, likely ovary. This area was evacuated and suction irrigated. We then seated perform sigmoid colectomy. A window in the mesentery of the colon was developed with cautery. We divided the sigmoid colon with the DEYSI stapler. We then took down the mesentery with the LigaSure device down below the perforation. We then divided the rectosigmoid junction with a TA stapler. This process was passed off the field. We then mobilized the left colon to allow it to be brought up as an end colostomy. White line of Toldt was taken down with cautery up to the splenic flexure. We had enough length. We then chose a site for end colostomy in the left lower quadrant. Ellipse of skin was taken with cautery dissection carried down through the abdominal wall in cruciate fashion, splitting the rectus muscle. The end stoma was brought up through the skin. I elected to place a drain in the pelvis since the wall of the abscess was still partially in situ. Composed of tuboovarian structures. Drain was placed through the pelvic skin down into the abscess cavity. It was anchored to the skin with nylon suture. Peritoneal cavity was and suction irrigated normal saline. The fascia was closed with 0 Maxon suture. The skin was reapproximated loosely and packed inferiorly. The stoma was then matured in a Morrison fashion with 3-0 Vicryl suture. Up plans was placed. Sterile dressings applied. Sponge and needle counts are correct. CC: LAN BAILEY,ROVERTO
--- NOTE | 2016-08-26 22:00 | NUR ---
RECIEVED PT FROM OR. PT SEDATED. PUPILS L=5MM SLUG, R=4MM SLUG. INTUBATED PER MD ORDERS. O2 SAT 99%. CLEAR LUNG DIEZ. NO SECRETIONS. ST 110'S. SBP 90-100'S. IVF. IVABX. AFEBRILE. WRIST RESTRAINTS APPLIED FOR SAFETY. COLOSTOMY INTACT- BEEFY RED STOMA. JPX1 ABD. RIJ TLC. L RADIAL BONNIE READING 10-20 POINTS HIGHER THAN MANUAL B/P. CHEST XRAY OBTAINED TO CONFIRM PLACEMENTS OF TUBES. NGT 68CM R NARE. TO LWS PER ELMA GUZMAN ALSO MAY GIVE PO VANCO VIA NGT PER ELMA GUZMAN. NO OUTPUT VIA NGT. FC MINIMAL DARK FABIAN URINE. HYPOACTIVE BS. WILL CONT TO MONITOR.
[2016-08-26 23:06] LABS: ABSOLUTE BASOPHIL COUNT 0 /CUMM (0.0-0.2); ABSOLUTE EOSINOPHIL COUNT 0 /CUMM (0.0-0.7); ABSOLUTE LYMPH COUNT 0.4 /CUMM (1.2-3.4); ABSOLUTE MONOCYTE COUNT 0.1 /CUMM (0.10-0.60); BASOPHIL % 0 % (0.0-2.0); EOSINOPHIL % 0.1 % (0-5); HEMATOCRIT 34.1 % (37-47); MEAN CORPUSCULAR HGB 31.4 PG (27.0-31.0); MEAN CORPUSCULAR HGB CONC 32.5 G/DL (33.0-37.0); MEAN CORPUSCULAR VOLUME 96.7 FL (81.0-99.0); MEAN PLATELET VOLUME 8.4 FL (7.4-10.4); PLATELET COUNT 310 /CUMM (130-400); RBC DISTRIBUTION WIDTH 14.6 % (11.5-14.5); RED BLOOD CELL CT 3.52 /CUMM (4.20-5.40)
[2016-08-26 23:08] LABS: GRANULOCYTE % 97.5 % (42.2-75.2); WHITE BLOOD CELL COUNT 19.4 /CUMM (4.8-10.8)
--- NOTE | 2016-08-26 23:50 | RADIOLOGY REPORT ---
EXAMINATION: XR PORTABLE CHEST CLINICAL INFORMATION: Position endotracheal tube and triple lumen COMPARISON: Chest x-ray August 26, 2016 TECHNIQUE: Portable frontal view of the chest was obtained. FINDINGS: Endotracheal tube tip is 5 cm above the evelio. Right IJ central venous catheter terminates at the cavoatrial junction. Enteric tube tip terminates within the stomach. No pneumothorax. Low lung volumes. A small right pleural effusion with adjacent right basilar opacity remain stable. There is mild probable atelectasis at the left lung base. Cardiac silhouette size is normal. Osseous structures are stable. IMPRESSION: - Endotracheal tube tip is 5 cm above the evelio. Right IJ central venous catheter terminates at the cavoatrial junction. Enteric tube tip terminates within the stomach. No pneumothorax. - Stable appearing small right pleural effusion with adjacent right basilar airspace opacity. Probable mild atelectasis at the left lung base.
[2016-08-27] VITALS: BP 90/00
--- NOTE | 2016-08-27 00:37 | PN- General Surgery ---
Subjective Subjective: Postop check Pt is now POD #0 s/p Ho's procedure (sigmoid resection with colostomy) for perforated sigmoid colon with abscess formation and a large amount purulent/ feculent ascitic fluid. Triple lumen catheter and arterial line were placed intra-operatively and pt remains intubated. She required some pressors during surgery to maintain her SBP > 100, but has been off pressors since the OR. She was initially stable upon arrival to the ICU, however, she has recently become hypotensive, with a SBP in the 80s-90s. She is receiving a 500 cc bolus of NS now. CVP is 7. HR is in the 110s-low 120s. Objective Vital Signs and I&Os Vital Signs Date Time Temp Pulse Resp B/P B/P Pulse O2 O2 Flow FiO2 Mean Ox Delivery Rate 08/26 2255 100 08/26 2135 100 08/26 1815 98.7 107 36 128/86 93 Non 100% ReBreather 08/26 1600 92 BIPAP 60% 08/26 1600 98.1 110 28 126/86 92 BIPAP 60% 08/26 1530 112 94 08/26 1421 93 BIPAP 60% 08/26 1309 114 93 08/26 1200 94 Part 60% ReBreather 08/26 0845 99.9 134 64 126/88 08/26 0800 99.9 134 60 126/88 94 Part 60% ReBreather 08/26 0800 94 Part 60% ReBreather 08/26 0324 93 Part 60% ReBreather 08/26 0323 92 Part 60% ReBreather 08/26 0300 98.9 106 24 119/70 93 Part 60% ReBreather 08/26 0216 97.8 103 20 131/68 95 Part 60% ReBreather 08/26 0144 97.7 98 20 119/66 94 Part 60% ReBreather 08/26 0118 95.0 113 24 119/76 95 Part 60% ReBreather 08/26 0048 97.7 111 22 114/72 97 Non 8L ReBreather Intake & Output 08/27 0800 20 0000 08/26 1600 08/26 0800 08/26 0000 08/25 1600 Intake Total 3107 1378 1120 Output Total 250 300 Balance 2857 1078 1120 Intake, IV 3077 1328 1000 Intake, Oral 30 50 120 Number 0 0 Bowel Movements Output, Urine 250 300 Patient 129 lb Weight Weight Bed scale Measurement Method Physical Exam: General: Pt is intubated, somewhat responsive. NAD. Abdomen: Soft, distended, as expected. Stoma is red and viable (moreso now vs. intraop). There is a small amount of liquid stool and serous fluid in the bag, but no air. Ext: No significant edema. There are a few areas of scattered ecchymoses on bilateral UE's. Results Last 48 Hours of Labs: Laboratory Tests 08/27 08/26 08/26 0000 2215 2215 Blood Gas pH (7.35 - 7.45 PH) 7.34 L pCO2 (35 - 45 TORR) 31 L pO2 (80 - 100 TORR) 252 H HCO3 (21 - 28 MEQ/L) 16 L ABG O2 Sat (Measured) (>96.0 %) 99.0 P-50 (Temp Corrected) Y Carboxyhemoglobin (1.5 - 5.0 %) 0.2 L O2 Concentration % 100% Temperature (97.0 - 100.0 FARH) 98.8 Respiration Rate (BPM) 26 O2 Delivery Method ESPRIT Vent Mode AC Expiratory Pressure (CMH2O/P) 5 Tidal Volume (CC) 500 Chemistry Sodium (137 - 145 mmol/L) 146 H Potassium (3.5 - 5.1 mmol/L) 4.4 Chloride (98 - 107 mmol/L) 116 H Carbon Dioxide (22 - 30 mmol/L) 16 L Anion Gap (5 - 16) 15 BUN (7 - 17 mg/dL) 40 H Creatinine (0.5 - 1.0 mg/dL) 1.4 H Estimated GFR (>60 ml/min) 38 L Glucose (65 - 99 mg/dL) 72 Lactic Acid (0.7 - 2.1 mmol/L) 2.2 H Calcium (8.4 - 10.2 mg/dL) 7.0 L Phosphorus (2.5 - 4.5 mg/dL) 5.8 H Magnesium (1.6 - 2.3 mg/dL) 1.6 Total Bilirubin (0.2 - 1.3 mg/dL) 0.9 AST (14 - 36 U/L) 127 H ALT (9 - 52 U/L) 61 H Albumin (3.5 - 5.0 g/dL) 1.9 L Hematology CBC w Diff NO MAN DIFF REQ WBC (4.8 - 10.8 /CUMM) 19.4 H RBC (4.20 - 5.40 /CUMM) 3.52 L Hgb (12.0 - 16.0 G/DL) 11.1 L Hct (37 - 47 %) 34.1 L MCV (81.0 - 99.0 FL) 96.7 MCH (27.0 - 31.0 PG) 31.4 H RDW (11.5 - 14.5 %) 14.6 H Plt Count (130 - 400 /CUMM) 310 MPV (7.4 - 10.4 FL) 8.4 Gran % (42.2 - 75.2 %) 97.5 H Lymphocytes % (20.5 - 51.1 %) 1.8 L Monocytes % (1.7 - 9.3 %) 0.6 L Eosinophils % (0 - 5 %) 0.1 Basophils % (0.0 - 2.0 %) 0 L Absolute Granulocytes (1.4 - 6.5 /CUMM) 19.0 H Absolute Lymphocytes (1.2 - 3.4 /CUMM) 0.4 L Absolute Monocytes (0.10 - 0.60 /CUMM) 0.1 L Absolute Eosinophils (0.0 - 0.7 /CUMM) 0 Absolute Basophils (0.0 - 0.2 /CUMM) 0 PUBS MCHC (33.0 - 37.0 G/DL) 32.5 L Miscellaneous Phlebotomy Draw Site [place] 08/26 08/26 08/26 08/26 2210 1639 1630 1608 Blood Gas pH (7.35 - 7.45 PH) 7.24 *L pCO2 (35 - 45 TORR) 39 pO2 (80 - 100 TORR) 119 H HCO3 (21 - 28 MEQ/L) 16 L ABG O2 Sat (Measured) (>96.0 %) 97.0 P-50 (Temp Corrected) N Carboxyhemoglobin (1.5 - 5.0 %) 0.8 L O2 Concentration % 100% Temperature (97.0 - 100.0 FARH) 98.5 Respiration Rate (BPM) 20 O2 Delivery Method ESPRIT Vent Mode AC Expiratory Pressure (CMH2O/P) 5 Tidal Volume (CC) 500 Chemistry Lactic Acid Cancelled Cancelled Miscellaneous Phlebotomy Draw Site [place] Other Body Source Fluid WBC Cancelled Fld Total RBCs Counted Cancelled 08/26 08/26 08/26 1608 1345 1255 Blood Gas pH (7.35 - 7.45 PH) 7.29 *L 7.25 *L pCO2 (35 - 45 TORR) 38 39 pO2 (80 - 100 TORR) 84 45 *L HCO3 (21 - 28 MEQ/L) 17 L 17 L ABG O2 Sat (Measured) (>96.0 %) 94.0 L 72.0 L P-50 (Temp Corrected) N N Carboxyhemoglobin (1.5 - 5.0 %) 0.6 L 1.0 L O2 Concentration % 60% 100% Respiration Rate (BPM) 24 O2 Delivery Method BIPAP HFNC WITH 45L FLOW Vent Mode ST Expiratory Pressure (CM H2O P) 6 Inspiratory Pressure (CM H2O P) 14 Miscellaneous Phlebotomy Draw Site RIGHT RADIAL RIGHT BRACHIAL Other Body Source Fluid Total Protein Cancelled Fluid Albumin Cancelled Fluid LDH Cancelled 08/26 08/26 08/26 1240 0503 0400 Chemistry Sodium (137 - 145 mmol/L) 147 H 144 Potassium (3.5 - 5.1 mmol/L) 4.0 3.7 Chloride (98 - 107 mmol/L) 114 H 112 H Carbon Dioxide (22 - 30 mmol/L) 18 L 18 L Anion Gap (5 - 16) 15 14 BUN (7 - 17 mg/dL) 41 H 38 H Creatinine (0.5 - 1.0 mg/dL) 1.7 H 1.7 H Estimated GFR (>60 ml/min) 31 L 31 L BUN/Creatinine Ratio (7 - 25 %) 22.4 Glucose (65 - 99 mg/dL) 65 83 Lactic Acid (0.7 - 2.1 mmol/L) 2.4 H Cancelled 2.1 Calcium (8.4 - 10.2 mg/dL) 7.6 L 7.4 L Phosphorus (2.5 - 4.5 mg/dL) 5.0 H Magnesium (1.6 - 2.3 mg/dL) 2.0 1.9 Total Bilirubin (0.2 - 1.3 mg/dL) 1.1 1.0 AST (14 - 36 U/L) 142 H 74 H ALT (9 - 52 U/L) 78 H 56 H Alkaline Phosphatase (<127 U/L) 82 Creatine Kinase (30 - 135 U/L) 370 H Troponin I (< 0.11 ng/ml) 0.05 0.06 Ymu-S-Xawhoobzkrs Pept (<125 pg/mL) 79308 H Total Protein (6.3 - 8.2 g/dL) 4.7 L Albumin (3.5 - 5.0 g/dL) 2.3 L 2.1 L Globulin (1.9 - 4.2 gm/dL) 2.6 Albumin/Globulin Ratio (1.1 - 2.2 %) 0.8 L Amylase (30 - 110 U/L) 153 H Lipase (23 - 300 U/L) < 10 L Coagulation PT (9.4 - 12.5 SEC) 16.0 H INR (0.90 - 1.19) 1.53 H Hematology CBC w Diff MAN DIFF ORDERED WBC (4.8 - 10.8 /CUMM) 21.6 H RBC (4.20 - 5.40 /CUMM) 4.05 L Hgb (12.0 - 16.0 G/DL) 12.7 Hct (37 - 47 %) 38.7 MCV (81.0 - 99.0 FL) 95.4 MCH (27.0 - 31.0 PG) 31.3 H RDW (11.5 - 14.5 %) 14.5 Plt Count (130 - 400 /CUMM) 520 H MPV (7.4 - 10.4 FL) 7.9 Gran % (42.2 - 75.2 %) 95.9 H Lymphocytes % (20.5 - 51.1 %) 2.5 L Monocytes % (1.7 - 9.3 %) 1.5 L Eosinophils % (0 - 5 %) 0.1 Basophils % (0.0 - 2.0 %) 0 L Absolute Granulocytes (1.4 - 6.5 /CUMM) 20.7 H Segmented Neutrophils (42.2 - 75.2 %) 72 Band Neutrophils (0.0 - 5.0 %) 19 H Absolute Lymphocytes (1.2 - 3.4 /CUMM) 0.5 L Lymphocytes (20.5 - 51.1 %) 5 L Monocytes (1.7 - 9.3 %) 3 Absolute Monocytes (0.10 - 0.60 /CUMM) 0.3 Absolute Eosinophils (0.0 - 0.7 /CUMM) 0 Absolute Basophils (0.0 - 0.2 /CUMM) 0 Metamyelocytes (0.0 - 1.0 %) 1 Platelet Estimate (ADEQUATE) INCREASED Polychromasia 1+ Hypochromic-Microcytic 1+ Ovalocytes FEW PUBS MCHC (33.0 - 37.0 G/DL) 32.8 L Other Body Source Fld Total RBCs Counted (%) 100 08/26 08/25 08/25 0330 2319 2028 Blood Gas pH (7.35 - 7.45 PH) 7.36 pCO2 (35 - 45 TORR) 31 L pO2 (80 - 100 TORR) 91 HCO3 (21 - 28 MEQ/L) 17 L ABG O2 Sat (Measured) (>96.0 %) 95.0 L P-50 (Temp Corrected) Y Carboxyhemoglobin (1.5 - 5.0 %) 0.6 L O2 Concentration % 60% Temperature (97.0 - 100.0 FARH) 98.9 O2 Delivery Method PRB Chemistry Lactic Acid (0.7 - 2.1 mmol/L) 2.7 H 2.9 H Miscellaneous Phlebotomy Draw Site RIGHT RADIAL 08/25 1830 Toxicology Urine Opiates Screen (>2000 NG/ML) < 100.00 Methadone Screen (>300 NG/ML) 41 Barbiturate Screen (>200 NG/ML) < 60 Ur Phencyclidine Scrn (>25 NG/ML) < 6.00 Amphetamines Screen (>1000 NG/ML) < 100 U Benzodiazepines Scrn (>200 NG/ML) 565 H Urine Cocaine Screen (>300 NG/ML) < 50 Urine Cannabis Screen (>50 NG/ML) 5.80 Urines Urinalysis HEAVY H Urine Color (YEL,AMB,STR) FABIAN Urine Clarity (CLEAR) CLDY H Urine pH (5.0 - 8.0) 5.5 Ur Specific [place] (1.001 - 1.035) 1.025 Urine Protein (NEG,<30 MG/DL) 100 H Urine Ketones (NEG) TRACE H Urine Nitrite (NEG) POS H Urine Bilirubin (NEG) NEG@ICTO Urine Urobilinogen (0.1 - 1.0 EU/dl) 4.0 H Ur Leukocyte Esterase (NEG) NEG Ur Microscopic SEDIMENT EXAMINED Urine RBC (0 - 5 /HPF) 3-5 Urine WBC (0 - 2 /HPF) 25-50 H Urine Crystals 1+ CA OX H Urine Bacteria (NEG/NONE) MOD H Granular Casts (NONE /LPF) 1-3 H Urine Hemoglobin (NEG) LARGE H Urine Glucose (N MG/DL) NEG 08/25 1457 Chemistry Sodium (137 - 145 mmol/L) 143 Potassium (3.5 - 5.1 mmol/L) 3.6 Chloride (98 - 107 mmol/L) 107 Carbon Dioxide (22 - 30 mmol/L) 16 L Anion Gap (5 - 16) 20 H BUN (7 - 17 mg/dL) 28 H Creatinine (0.5 - 1.0 mg/dL) 1.8 H Estimated GFR (>60 ml/min) 29 L BUN/Creatinine Ratio (7 - 25 %) 15.6 Glucose (65 - 99 mg/dL) 98 Calcium (8.4 - 10.2 mg/dL) 8.6 Total Bilirubin (0.2 - 1.3 mg/dL) 1.0 AST (14 - 36 U/L) 62 H ALT (9 - 52 U/L) 42 Alkaline Phosphatase (<127 U/L) 75 Troponin I (< 0.11 ng/ml) 0.05 Total Protein (6.3 - 8.2 g/dL) 5.3 L Albumin (3.5 - 5.0 g/dL) 2.5 L Globulin (1.9 - 4.2 gm/dL) 2.8 Albumin/Globulin Ratio (1.1 - 2.2 %) 0.9 L TSH (0.270 - 4.200 uIU/mL) 3.730 Thyroxine (T4) (4.5 - 10.9 ug/dL) 3.6 L Thyroxine Binding Indx (23.5 - 40.5 % UPTAKE) 53.5 H Hematology CBC w Diff MAN DIFF ORDERED WBC (4.8 - 10.8 /CUMM) 18.1 H RBC (4.20 - 5.40 /CUMM) 4.34 Hgb (12.0 - 16.0 G/DL) 13.7 Hct (37 - 47 %) 41.6 MCV (81.0 - 99.0 FL) 95.9 MCH (27.0 - 31.0 PG) 31.6 H RDW (11.5 - 14.5 %) 14.3 Plt Count (130 - 400 /CUMM) 623 H MPV (7.4 - 10.4 FL) 7.5 Gran % (42.2 - 75.2 %) 95.9 H Lymphocytes % (20.5 - 51.1 %) 3.2 L Monocytes % (1.7 - 9.3 %) 0.9 L Eosinophils % (0 - 5 %) 0 Basophils % (0.0 - 2.0 %) 0 L Absolute Granulocytes (1.4 - 6.5 /CUMM) 17.4 H Segmented Neutrophils (42.2 - 75.2 %) 50 Band Neutrophils (0.0 - 5.0 %) 37 H Absolute Lymphocytes (1.2 - 3.4 /CUMM) 0.6 L Lymphocytes (20.5 - 51.1 %) 8 L Monocytes (1.7 - 9.3 %) 4 Absolute Monocytes (0.10 - 0.60 /CUMM) 0.2 Eosinophils (0 - 5.0 %) 1 Absolute Eosinophils (0.0 - 0.7 /CUMM) 0 Absolute Basophils (0.0 - 0.2 /CUMM) 0 Nucleated RBCs (0.0 - 0.0 /100WBC) 2 H Platelet Estimate (ADEQUATE) INCREASED Normocytic RBCs VERIFIED Normochromic RBCs VERIFIED PUBS MCHC (33.0 - 37.0 G/DL) 33.0 Toxicology Serum Alcohol (<10 MG/DL) < 10.0 Assessment/Plan Assessment/Plan Pt is a 60 yo F with a hx of COPD, smoking, and anxiety/depression who was admitted to the ICU yesterday with sepsis of unidentified source. Upon review of previously read CT scan, it was determined that there was some free air. She is now s/p Ex lap with Ho's procedure for perforated sigmoid colon with abscess formation and gross purulent peritonitis. She remains in the ICU in guarded condition. Plan: -Continue IV antibiotics with Rocephin and flagyl for purulent peritonitis. -Continue IV hydration. Bolus x 1 running now. Monitor Arterial BP and CVP. -Continue NPO until extubated and improved bowel function. NGT to low wall suction. -DVT ppx with SC heparin. -Protonix for GI ppx. -Keep hope for critical I/O's. -Confirm with ID whether the empiric po vanco is still warranted now that a source of sepsis has been identified. -Monitor labs. -Ostomy care. -Leave surgical dressing in place for now. Pt has packing at inferior aspect. Will attempt to keep in place at least 2 days or so. -TRCs. -Medical management per ICU team.
--- NOTE | 2016-08-27 05:43 | NUR ---
2350= B/O 80/DOP REETU AWARE, PER ORDERS GIVE 500ML NS BOLUS. 0200= B/P 84/57 PER MD CHAIDEZ START LEVOPHED 5MCG/MIN. 0230= URINE OUTPUT FOR LAST HR 5ML. MD CHAIDEZ MADE AWARE. 250ML NS BOLUS ADMINISTERED. 0300=AXILLARY TEMP 101.6. MD CHAIDEZ MADE AWARE, IV TYLENOL ORDERED AND ADMINISTERED. 0330=URINE OUT 7ML LAST HOUR, MD CHAIDEZ MADE AWARE. 250ML NS BOLUS ORDERED AND ADMINISTERED. 0500=URINE OUTPUT REMAINS 5ML HR, 500ML NS BOLUS ORDERED PER MD CHAIDEZ. TEMP 101.0 AXILLARY, WILL CONT TO MONITOR.
[2016-08-27 05:57] LABS: ABSOLUTE BASOPHIL COUNT 0 /CUMM (0.0-0.2); ABSOLUTE EOSINOPHIL COUNT 0 /CUMM (0.0-0.7); ABSOLUTE GRANULOCYTE CT 24.6 /CUMM (1.4-6.5); ABSOLUTE LYMPH COUNT 0.3 /CUMM (1.2-3.4); ABSOLUTE MONOCYTE COUNT 0.1 /CUMM (0.10-0.60); BASOPHIL % 0 % (0.0-2.0); EOSINOPHIL % 0 % (0-5); GRANULOCYTE % 98.2 % (42.2-75.2); HEMATOCRIT 32.9 % (37-47); MEAN CORPUSCULAR HGB 32.1 PG (27.0-31.0); MEAN CORPUSCULAR HGB CONC 33.5 G/DL (33.0-37.0); MEAN CORPUSCULAR VOLUME 95.8 FL (81.0-99.0); MEAN PLATELET VOLUME 8.7 FL (7.4-10.4); PLATELET COUNT 250 /CUMM (130-400); RBC DISTRIBUTION WIDTH 14.4 % (11.5-14.5); RED BLOOD CELL CT 3.43 /CUMM (4.20-5.40); WHITE BLOOD CELL COUNT 25.1 /CUMM (4.8-10.8)
[2016-08-27 08:00] VITALS: BP 96/70
--- NOTE | 2016-08-27 08:23 | PN- General Surgery ---
See Addendum Subjective Subjective: POD 1 Pt is intubated - not awake, with ativan for agitation Levo at 3 sbp 110 left radial arterial line RIJ tlc Objective Vital Signs and I&Os Vital Signs Date Time Temp Pulse Resp B/P B/P Pulse O2 O2 Flow FiO2 Mean Ox Delivery Rate 08/27 0552 70 08/27 0400 96 Ventilator 70% 08/27 0350 70 08/27 0345 80 08/27 0329 101.0 08/27 0236 101.6 08/27 0205 119 84/57 08/27 0030 80 08/27 0024 100 08/27 0000 98.8 114 26 90/00 99 Ventilator 80% 08/27 0000 99 Ventilator 80% 08/26 2255 100 08/26 2135 100 08/26 1815 98.7 107 36 128/86 93 Non 100% ReBreather 08/26 1600 92 BIPAP 60% 08/26 1600 98.1 110 28 126/86 92 BIPAP 60% 08/26 1530 112 94 08/26 1421 93 BIPAP 60% 08/26 1309 114 93 08/26 1200 94 Part 60% ReBreather 08/26 0845 99.9 134 64 126/88 Intake & Output 08/27 1600 08/27 0800 08/27 0000 08/26 1600 08/26 0800 08/26 0000 Intake Total 2485 4475 3107 1378 Output Total 497 395 250 300 Balance 1988 4080 2857 1078 Intake, IV 2395 4475 3077 1328 Intake, Oral 0 0 30 50 Intake, Other 90 Number 0 0 0 Bowel Movements Output, 45 95 Drainage Output, 350 0 Gastric Drainage Output, Other 150 Output, Stool 0 Output, Urine 102 150 250 300 Patient 129 lb 129 lb Weight Weight Bed scale Measurement Method Physical Exam: T max 101.6 this morning NGT 350cc thick green drainage MANDY 45cc serosang General: intubated Chest: clear anteriorly, No rales/rhonchi/wheezes Abd: softly distended, no bs appreciated Ostomy: pink, protruding, there is some stool noted at the opening Wound: dressed, dry MANDY: serosang Assessment/Plan Assessment/Plan Pt is a 60 yo F s/p Ex lap with Ho's procedure for perforated sigmoid colon with abscess formation and gross purulent peritonitis. Plan: -Continue IV antibiotics with Rocephin and flagyl for purulent peritonitis. Vanco po for c diff - ID following -ICU mangement by critical care team, Vent per pulmonary -Continue NGT to low wall suction. -DVT ppx with SC heparin. -Protonix for GI ppx. -Ostomy care. -Leave surgical dressing in place for now. Pt has packing at inferior aspect. Will attempt to keep in place at least 2 days or so. -TRCs. Core Measures/Miscellaneous Venous Thromboembolism VTE Risk Factors: Surgery VTE Contraindications: No Contraindications VTE Diagnosis: No VTE Type: NONE VTE Confirmed by (Test): NONE Beta Raghav Is Beta Raghav a Home Med? No Antibiotics Is Patient on Antibiotics? Yes If Yes: infection
--- NOTE | 2016-08-27 09:14 | PN- Resident CRCU ---
Subjective HPI/CRCU Issues: Yesterday, patient was taken to the operating room for mild free air under the diaphragm. Intraoperatively she was found to have a paracolic abscess which was drained, subsequently a colostomy was done after Granger's procedure. She was intubated overnight. Has a triple-lumen catheter, A-line and Tobar catheter in place. As an NG tube to low wall suction at present. Objective Vital Signs & I&O Last 8 Hrs of Vitals and I&O: per emr Exam General Appearance: intubated Head: atraumatic, normal appearance Neck: TLC IN PLACE, RIGHT IJ Respiratory: normal breath sounds Cardiovascular: regular rate/rhythm Gastrointestinal: soft, non-tender, OSTOMY IN PLACE Extremities: normal inspection, normal capillary refill Skin: TOBAR CATHETER IN PLACE Central Line Date In: 08/26/16 Need for Catheter: pressors Tobar Date In: 08/26/16 Still Needed? Yes NG Tube Date In: 08/26/16 Still Needed? Yes Current Medications: Current Medications Sig/Ry Start time Last Medication Dose Route Stop Time Status Admin Acetaminophen 1,000 MG Q6P PRN 08/27 0230 AC 08/27 N/A 1 UNIT IV 0236 Albuterol Sulfate 2 PUF Q4-6 PRN PRN 08/26 0215 DC INH Ampicillin Sodium/ 1,500 MG Q6H 08/26 0330 DC 08/26 Sulbactam Sodium IV 0929 Sodium Chloride 100 ML Budesonide/ 2 PUF BID 08/26 1000 DC 08/26 Formoterol Fumarate INH 0940 Ceftriaxone Sodium 1,000 MG 08/260 AC 08/26 IV 2205 Ceftriaxone Sodium 2,000 MG 08/26 2100 DC IV Ceftriaxone Sodium 1,000 MG 08/26 2100 DC IV Clonazepam 0.5 MG DAILY 08/26 1000 DC 08/26 PO 09/02 0959 0839 Dextrose 12.5 GM ONCE ONE 08/26 1800 DC 08/26 IV 08/26 1801 1620 Dextrose/Sodium 1,000 ML Q8H 08/26 2200 AC 08/27 Chloride IV 0517 Dextrose/Sodium 1,000 ML Q6H 08/26 1445 DC 08/26 Chloride IV 08/27 0844 1528 Heparin Sodium 5,000 UNIT Q8 08/27 0600 AC 08/27 (Porcine) SC 0519 Heparin Sodium 5,000 UNIT Q8 08/26 1400 DC (Porcine) SC Heparin Sodium/ 25,000 UNIT Q24H 08/26 1245 DC Dextrose IV Dextrose/Water 500 ML Lorazepam 0.5 MG Q6P PRN 08/26 2200 AC 08/27 IV 0112 Magnesium Sulfate 1 GM Q2H 08/27 0800 AC Dextrose/Water 100 ML IV 08/27 1159 Metronidazole 500 MG Q8H 08/26 2200 AC 08/27 N/A 1 UNIT IV 0520 Metronidazole 500 MG IQ8 08/26 1600 DC N/A 1 UNIT IV Metronidazole 500 MG Q8H 08/26 1400 DC 08/26 N/A 1 UNIT IV 1528 Morphine Sulfate 2 MG Q2P PRN 08/26 2200 AC 08/27 IV 0645 Morphine Sulfate 1 MG ONCE ONE 08/26 1415 DC IV 08/26 1416 Norepinephrine 4 MG Q24H 08/27 0015 AC 08/27 Dextrose/Water 250 ML IV 0205 Nystatin 5 ML 4 TIMES/DAY 08/26 1800 CAN PO Nystatin 5 ML 4 TIMES/DAY 08/26 1400 DC PO Pantoprazole Sodium 40 MG DAILY 08/27 1000 AC IV Paroxetine HCl 10 MG DAILY 08/26 1000 CAN PO Propranolol HCl 10 MG 0800 08/26 0800 DC 08/26 PO 0845 Sertraline HCl 200 MG DAILY 08/26 1000 CAN PO Sodium Chloride 500 ML BOLUS ONE 08/27 0500 DC 08/27 IV 08/27 0559 0515 Sodium Chloride 250 ML BOLUS ONE 08/27 0330 DC 08/27 IV 08/27 0429 0328 Sodium Chloride 250 ML BOLUS ONE 08/27 0215 DC 08/27 IV 08/27 0314 0221 Sodium Chloride 500 ML BOLUS ONE 08/26 2345 DC 08/26 IV 08/27 0044 2357 Sodium Chloride 1,000 ML Q6H 08/26 1430 DC IV 08/26 2029 Sodium Chloride 1,000 ML Q10H 08/26 0215 DC 08/26 IV 0310 Tramadol HCl 50 MG Q12P PRN 08/26 0715 DC PO Trazodone HCl 200 MG QPM 08/26 2200 CAN PO Vancomycin HCl 500 MG Q6 08/26 2359 AC 08/27 PO 0520 Vancomycin HCl 500 MG Q6 08/26 1800 DC PO Impression/Plan Impression/Problem List Impression: Assessment- 1. Septic shock secondary to peritoneal abscess 2. Postop day 1 status post Ho procedure with colostomy placement 3. Acute kidney injury 4. Leukocytosis secondary to above 5. Transaminitis, improving 6. Hypomagnesemia 7. History of anxiety and depression Plan- - continue TLC, A-line, Tobar catheter - Continue mechanical ventilation, follow-up chest x-ray, ABG - Continue Flagyl, ceftriaxone, will discuss utility of by mouth vancomycin per infectious disease - IV fluid hydration - Labs every 8 - Ostomy management per surgery - Off sedation for now - Ensure adequate analgesia and urine output - Total care for now - DVT prophylaxis at all times Problem List: 1. History of adenomatous polyp of colon 2. Diverticulosis of colon Pain Ratin Tomorrow's Labs & Rationales: PER EMR Plan DVT/Prophylaxis: pharmacological
--- NOTE | 2016-08-27 10:30 | PN- CRCU ---
Subjective HPI/Critical Care Issues: pt seen and examined remains intubated overnight s/p pericolic abscess s/p drainage and sigmoid colectomy with end colostomy on levophed overnight right ij central line on d51/2ns bonnie CVP 7 wbc 25.1 creatinine 1.5 7.32/30/104 on 70% not on sedation vancomycin po, gram positive carlos in blood culture Objective Current Medications: Current Medications Sig/Ry Start time Last Medication Dose Route Stop Time Status Admin Acetaminophen 1,000 MG Q6P PRN 08/27 0230 AC 08/27 N/A 1 UNIT IV 0236 Albuterol Sulfate 3 ML Q4H PRN 08/27 1000 AC INH Albuterol Sulfate 2 PUF Q4-6 PRN PRN 08/26 0215 DC INH Ampicillin Sodium/ 1,500 MG Q6H 08/26 0330 DC 08/26 Sulbactam Sodium IV 0929 Sodium Chloride 100 ML Budesonide/ 2 PUF BID 08/26 1000 DC 08/26 Formoterol Fumarate INH 0940 Ceftriaxone Sodium 1,000 MG 2100 08/26 2199 AC 08/26 IV 2205 Ceftriaxone Sodium 2,000 MG 2100 08/26 2100 DC IV Ceftriaxone Sodium 1,000 MG 2100 08/26 2100 DC IV Clonazepam 0.5 MG DAILY 08/26 1000 DC 08/26 PO 09/02 0959 0839 Dextrose 12.5 GM ONCE ONE 08/26 1800 DC 08/26 IV 08/26 1801 1620 Dextrose/Sodium 1,000 ML Q8H 08/26 2200 AC 08/27 Chloride IV 0517 Dextrose/Sodium 1,000 ML Q6H 08/26 1445 DC 08/26 Chloride IV 08/27 0844 1528 Heparin Sodium 5,000 UNIT Q8 08/27 0600 AC 08/27 (Porcine) SC 0519 Heparin Sodium 5,000 UNIT Q8 08/26 1400 DC (Porcine) SC Heparin Sodium/ 25,000 UNIT Q24H 08/26 1245 DC Dextrose IV Dextrose/Water 500 ML Lorazepam 0.5 MG Q6P PRN 08/26 2200 AC 08/27 IV 0112 Magnesium Sulfate 1 GM Q2H 08/27 0800 AC Dextrose/Water 100 ML IV 08/27 1159 Metronidazole 500 MG Q8H 08/26 2200 AC 08/27 N/A 1 UNIT IV 0520 Metronidazole 500 MG IQ8 08/26 1600 DC N/A 1 UNIT IV Metronidazole 500 MG Q8H 08/26 1400 DC 08/26 N/A 1 UNIT IV 1528 Morphine Sulfate 2 MG Q2P PRN 08/26 2200 AC 08/27 IV 0645 Morphine Sulfate 1 MG ONCE ONE 08/26 1415 DC IV 08/26 1416 Norepinephrine 4 MG Q24H 08/27 0015 AC 08/27 Dextrose/Water 250 ML IV 0205 Nystatin 5 ML 4 TIMES/DAY 08/26 1800 CAN PO Nystatin 5 ML 4 TIMES/DAY 08/26 1400 DC PO Pantoprazole Sodium 40 MG DAILY 08/27 1000 AC 08/27 IV 0939 Sodium Chloride 500 ML BOLUS ONE 08/27 0500 DC 08/27 IV 08/27 0559 0515 Sodium Chloride 250 ML BOLUS ONE 08/27 0330 DC 08/27 IV 08/27 0429 0328 Sodium Chloride 250 ML BOLUS ONE 08/27 0215 DC 08/27 IV 08/27 0314 0221 Sodium Chloride 500 ML BOLUS ONE 08/26 2345 DC 08/26 IV 08/27 0044 2357 Sodium Chloride 1,000 ML Q6H 08/26 1430 DC IV 08/26 2029 Sodium Chloride 1,000 ML Q10H 08/26 0215 DC 08/26 IV 0310 Vancomycin HCl 500 MG Q6 08/26 2359 AC 08/27 PO 0520 Vancomycin HCl 500 MG Q6 08/26 1800 DC PO Vital Signs & I&O Last 24 Hrs of Vitals and I&O: Vital Signs Date Time Temp Pulse Resp B/P B/P Pulse O2 O2 Flow FiO2 Mean Ox Delivery Rate 08/27 0943 Ventilator 70% 08/27 0833 70 08/27 0552 70 08/27 0400 96 Ventilator 70% 08/27 0350 70 08/27 0345 80 08/27 0329 101.0 08/27 0236 101.6 08/27 0205 119 84/57 08/27 0030 80 08/27 0024 100 08/27 0000 98.8 114 26 90/00 99 Ventilator 80% 08/27 0000 99 Ventilator 80% 08/26 2255 100 08/26 2135 100 08/26 1815 98.7 107 36 128/86 93 Non 100% ReBreather 08/26 1600 92 BIPAP 60% 08/26 1600 98.1 110 28 126/86 92 BIPAP 60% 08/26 1530 112 94 08/26 1421 93 BIPAP 60% 08/26 1309 114 93 08/26 1200 94 Part 60% ReBreather Intake & Output 08/27 1600 08/27 0800 08/27 0000 Intake Total 2485 4475 Output Total 497 395 Balance 1987 4080 Intake, IV 2395 4475 Intake, Oral 0 0 Intake, Other 90 Number 0 Bowel Movements Output, 45 95 Drainage Output, 350 0 Gastric Drainage Output, Other 150 Output, Stool 0 Output, Urine 102 150 Patient 129 lb Weight Exam Other Physical Findings: gen awake heent intubated cvs s1, s2 lungs transmitted abd soft, dressing intact ext no edema Results Last 24 Hrs of Lab Results: Laboratory Tests 08/27/16 0450: pH 7.32 L, pCO2 30 L, pO2 104 H, HCO3 15 L, ABG O2 Sat (Measured) 96.0, P-50 (Temp Corrected) Y, Carboxyhemoglobin 0.3 L, O2 Concentration % 70%, Temperature 101.1 H, Respiration Rate 26, O2 Delivery Method ESPRIT, Vent Mode AC, Expiratory Pressure 5, Tidal Volume 500, Phlebotomy Draw Site BONNIE 08/27/16 0430: Lactic Acid 2.1 08/27/16 0430: Anion Gap 13, Estimated GFR 35 L, Glucose 60 L, Calcium 6.6 L, Phosphorus 4.8 H, Magnesium 1.7, Total Bilirubin 0.9, AST 100 H, ALT 63 H, Albumin 1.8 L, CBC w Diff MAN DIFF ORDERED, RBC 3.43 L, MCV 95.8, MCH 32.1 H, RDW 14.4, MPV 8.7, Gran % 98.2 H, Lymphocytes % 1.4 L, Monocytes % 0.4 L, Eosinophils % 0, Basophils % 0 L, Absolute Granulocytes 24.6 H, Segmented Neutrophils 91 H, Band Neutrophils 6 H, Absolute Lymphocytes 0.3 L, Lymphocytes 2 L, Monocytes 1 L, Absolute Monocytes 0.1 L, Absolute Eosinophils 0, Absolute Basophils 0, Platelet Estimate ADEQUATE, Normocytic RBCs VERIFIED, Normochromic RBCs VERIFIED , PUBS MCHC 33.5, Fld Total RBCs Counted 100 08/27/16 0250: Lactic Acid 2.0 08/27/16 0000: pH 7.34 L, pCO2 31 L, pO2 252 H, HCO3 16 L, ABG O2 Sat (Measured) 99.0, P-50 (Temp Corrected) Y, Carboxyhemoglobin 0.2 L, O2 Concentration % 100%, Temperature 98.8, Respiration Rate 26, O2 Delivery Method ESPRIT, Vent Mode AC, Expiratory Pressure 5, Tidal Volume 500, Phlebotomy Draw Site KEVIL 08/26/16 2215: Lactic Acid 2.2 H 08/26/16 2215: Anion Gap 15, Estimated GFR 38 L, Glucose 72, Calcium 7.0 L, Phosphorus 5.8 H , Magnesium 1.6, Total Bilirubin 0.9, AST 127 H, ALT 61 H, Albumin 1.9 L, CBC w Diff NO MAN DIFF REQ, RBC 3.52 L, MCV 96.7, MCH 31.4 H, RDW 14.6 H, MPV 8.4 , Gran % 97.5 H, Lymphocytes % 1.8 L, Monocytes % 0.6 L, Eosinophils % 0.1, Basophils % 0 L, Absolute Granulocytes 19.0 H, Absolute Lymphocytes 0.4 L, Absolute Monocytes 0.1 L, Absolute Eosinophils 0, Absolute Basophils 0, PUBS MCHC 32.5 L 08/26/16 221: pH 7.24 *L, pCO2 39, pO2 119 H, HCO3 16 L, ABG O2 Sat (Measured) 97.0, P-50 ( Temp Corrected) N, Carboxyhemoglobin 0.8 L, O2 Concentration % 100%, Temperature 98.5, Respiration Rate 20, O2 Delivery Method ESPRIT, Vent Mode AC, Expiratory Pressure 5, Tidal Volume 500, Phlebotomy Draw Site KEVIL 08/26/16 1639: Lactic Acid Cancelled 08/26/16 1630: Lactic Acid Cancelled 08/26/16 1608: Fluid WBC Cancelled, Fld Total RBCs Counted Cancelled 08/26/16 1608: Fluid Total Protein Cancelled, Fluid Albumin Cancelled, Fluid LDH Cancelled 08/26/16 1345: pH 7.29 *L, pCO2 38, pO2 84, HCO3 17 L, ABG O2 Sat (Measured) 94.0 L, P-50 ( Temp Corrected) N, Carboxyhemoglobin 0.6 L, O2 Concentration % 60%, Respiration Rate 24, O2 Delivery Method BIPAP, Vent Mode ST, Expiratory Pressure 6, Inspiratory Pressure 14, Phlebotomy Draw Site RIGHT RADIAL 08/26/16 1255: pH 7.25 *L, pCO2 39, pO2 45 *L, HCO3 17 L, ABG O2 Sat (Measured) 72.0 L, P-50 (Temp Corrected) N, Carboxyhemoglobin 1.0 L, O2 Concentration % 100%, O2 Delivery Method HFNC WITH 45L FLOW, Phlebotomy Draw Site RIGHT BRACHIAL 08/26/16 1240: Anion Gap 15, Estimated GFR 31 L, Glucose 65, Lactic Acid 2.4 H, Calcium 7.6 L, Phosphorus 5.0 H, Magnesium 2.0, Total Bilirubin 1.1, AST 142 H, ALT 78 H, Troponin I 0.05, Albumin 2.3 L, PT 16.0 H, INR 1.53 H Impression/Plan Impression/Plan Impression/Plan: Impression 60 year old woman * Septic shock - requiring vasopressors, pericolic abscess s/p drainage and sigmoid colectomy with end colostomyvere sepsis - origin maybe urinary source, abdominal pathology and aspiration pneumonia * SIERRA most likely secondary to prerenal causes - improving Plan Respiratory -TRC/Nebs -aspiration precautions -reduce fio2 as tolerated, no cpap trial until at least 40%fio2 ID -febrile post op, leukocytosis -f/u pancultures -ID consultation follow up CVS -monitor hemodynamics -monitor cvp Heme -monitor cbc, coags Metabolic -SIERRA, prerenal most likely cause -continue d51/2ns - glucose reduced -receiving IV saline for hydration Alimentary -aspiration precautions Neuro -not requiring sedation -psych appreciated -psych follow up when extubated DVT prophylaxis at all times TTS 40 min
--- NOTE | 2016-08-27 11:50 | PN- Infect Dx ---
Subjective Subjective: MAXIMUM TEMPERATURE 101.6. Recent events noted with patient taken to the OR last night for a perforated sigmoid diverticulitis with diffuse peritonitis and pericolonic abscess noted, with evidence of chronic sigmoid colon diverticulitis , and with tubo-ovarian involvement. She was intubated earlier in the afternoon and remains so. She required pressors intraoperatively and postoperatively and remains on Levophed. Objective Last 24 Hrs of Vital Signs/I&O Vital Signs Date Time Temp Pulse Resp B/P B/P Pulse O2 O2 Flow FiO2 Mean Ox Delivery Rate 08/27 0943 Ventilator 70% 08/27 0833 70 08/27 0552 70 08/27 0400 96 Ventilator 70% 08/27 0350 70 08/27 0345 80 08/27 0329 101.0 08/27 0236 101.6 08/27 0205 119 84/57 08/27 0030 80 08/27 0024 100 08/27 0000 98.8 114 26 90/00 99 Ventilator 80% 08/27 0000 99 Ventilator 80% 08/26 2255 100 08/26 2135 100 08/26 1815 98.7 107 36 128/86 93 Non 100% ReBreather 08/26 1600 92 BIPAP 60% 08/26 1600 98.1 110 28 126/86 92 BIPAP 60% 08/26 1530 112 94 08/26 1421 93 BIPAP 60% 08/26 1309 114 93 08/26 1200 94 Part 60% ReBreather Intake & Output 08/27 1600 08/27 0800 08/27 0000 Intake Total 2485 4475 Output Total 497 395 Balance 1988 4080 Intake, IV 2395 4475 Intake, Oral 0 0 Intake, Other 90 Number 0 Bowel Movements Output, 45 95 Drainage Output, 350 0 Gastric Drainage Output, Other 150 Output, Stool 0 Output, Urine 102 150 Patient 129 lb Weight Physical Exam Other Physical Findings: She is arousable on the ventilator Neck right IJ triple-lumen catheter in place Lungs are clear Heart regular rhythm with no murmur Abdomen distended, colostomy in place with a small amount of liquid bloody stool noted Extremities no cyanosis, clubbing or edema Fulton catheter is in place Results Last 24 Hours of Lab Results: Laboratory Tests 08/27 08/27 08/27 0450 0430 0430 Blood Gas pH (7.35 - 7.45 PH) 7.32 L pCO2 (35 - 45 TORR) 30 L pO2 (80 - 100 TORR) 104 H HCO3 (21 - 28 MEQ/L) 15 L ABG O2 Sat (Measured) (>96.0 %) 96.0 P-50 (Temp Corrected) Y Carboxyhemoglobin (1.5 - 5.0 %) 0.3 L O2 Concentration % 70% Temperature (97.0 - 100.0 FARH) 101.1 H Respiration Rate (BPM) 26 O2 Delivery Method ESPRIT Vent Mode AC Expiratory Pressure (CMH2O/P) 5 Tidal Volume (CC) 500 Chemistry Sodium (137 - 145 mmol/L) 144 Potassium (3.5 - 5.1 mmol/L) 4.4 Chloride (98 - 107 mmol/L) 117 H Carbon Dioxide (22 - 30 mmol/L) 13 L Anion Gap (5 - 16) 13 BUN (7 - 17 mg/dL) 44 H Creatinine (0.5 - 1.0 mg/dL) 1.5 H Estimated GFR (>60 ml/min) 35 L Glucose (65 - 99 mg/dL) 60 L Lactic Acid (0.7 - 2.1 mmol/L) 2.1 Calcium (8.4 - 10.2 mg/dL) 6.6 L Phosphorus (2.5 - 4.5 mg/dL) 4.8 H Magnesium (1.6 - 2.3 mg/dL) 1.7 Total Bilirubin (0.2 - 1.3 mg/dL) 0.9 AST (14 - 36 U/L) 100 H ALT (9 - 52 U/L) 63 H Albumin (3.5 - 5.0 g/dL) 1.8 L Hematology CBC w Diff MAN DIFF ORDERED WBC (4.8 - 10.8 /CUMM) 25.1 H RBC (4.20 - 5.40 /CUMM) 3.43 L Hgb (12.0 - 16.0 G/DL) 11.0 L Hct (37 - 47 %) 32.9 L MCV (81.0 - 99.0 FL) 95.8 MCH (27.0 - 31.0 PG) 32.1 H RDW (11.5 - 14.5 %) 14.4 Plt Count (130 - 400 /CUMM) 250 MPV (7.4 - 10.4 FL) 8.7 Gran % (42.2 - 75.2 %) 98.2 H Lymphocytes % (20.5 - 51.1 %) 1.4 L Monocytes % (1.7 - 9.3 %) 0.4 L Eosinophils % (0 - 5 %) 0 Basophils % (0.0 - 2.0 %) 0 L Absolute Granulocytes (1.4 - 6.5 /CUMM) 24.6 H Segmented Neutrophils (42.2 - 75.2 %) 91 H Band Neutrophils (0.0 - 5.0 %) 6 H Absolute Lymphocytes (1.2 - 3.4 /CUMM) 0.3 L Lymphocytes (20.5 - 51.1 %) 2 L Monocytes (1.7 - 9.3 %) 1 L Absolute Monocytes (0.10 - 0.60 /CUMM) 0.1 L Absolute Eosinophils (0.0 - 0.7 /CUMM) 0 Absolute Basophils (0.0 - 0.2 /CUMM) 0 Platelet Estimate (ADEQUATE) ADEQUATE Normocytic RBCs VERIFIED Normochromic RBCs VERIFIED PUBS MCHC (33.0 - 37.0 G/DL) 33.5 Miscellaneous Phlebotomy Draw Site CRAWFORD Other Body Source Fld Total RBCs Counted (%) 100 08/27 08/27 08/26 08/26 0250 0000 2215 2215 Blood Gas pH (7.35 - 7.45 PH) 7.34 L pCO2 (35 - 45 TORR) 31 L pO2 (80 - 100 TORR) 252 H HCO3 (21 - 28 MEQ/L) 16 L ABG O2 Sat (Measured) (>96.0 %) 99.0 P-50 (Temp Corrected) Y Carboxyhemoglobin (1.5 - 5.0 %) 0.2 L O2 Concentration % 100% Temperature (97.0 - 100.0 FARH) 98.8 Respiration Rate (BPM) 26 O2 Delivery Method ESPRIT Vent Mode AC Expiratory Pressure (CMH2O/P) 5 Tidal Volume (CC) 500 Chemistry Sodium (137 - 145 mmol/L) 146 H Potassium (3.5 - 5.1 mmol/L) 4.4 Chloride (98 - 107 mmol/L) 116 H Carbon Dioxide (22 - 30 mmol/L) 16 L Anion Gap (5 - 16) 15 BUN (7 - 17 mg/dL) 40 H Creatinine (0.5 - 1.0 mg/dL) 1.4 H Estimated GFR (>60 ml/min) 38 L Glucose (65 - 99 mg/dL) 72 Lactic Acid (0.7 - 2.1 mmol/L) 2.0 2.2 H Calcium (8.4 - 10.2 mg/dL) 7.0 L Phosphorus (2.5 - 4.5 mg/dL) 5.8 H Magnesium (1.6 - 2.3 mg/dL) 1.6 Total Bilirubin (0.2 - 1.3 mg/dL) 0.9 AST (14 - 36 U/L) 127 H ALT (9 - 52 U/L) 61 H Albumin (3.5 - 5.0 g/dL) 1.9 L Hematology CBC w Diff NO MAN DIFF REQ WBC (4.8 - 10.8 /CUMM) 19.4 H RBC (4.20 - 5.40 /CUMM) 3.52 L Hgb (12.0 - 16.0 G/DL) 11.1 L Hct (37 - 47 %) 34.1 L MCV (81.0 - 99.0 FL) 96.7 MCH (27.0 - 31.0 PG) 31.4 H RDW (11.5 - 14.5 %) 14.6 H Plt Count (130 - 400 /CUMM) 310 MPV (7.4 - 10.4 FL) 8.4 Gran % (42.2 - 75.2 %) 97.5 H Lymphocytes % (20.5 - 51.1 %) 1.8 L Monocytes % (1.7 - 9.3 %) 0.6 L Eosinophils % (0 - 5 %) 0.1 Basophils % (0.0 - 2.0 %) 0 L Absolute Granulocytes (1.4 - 6.5 /CUMM) 19.0 H Absolute Lymphocytes (1.2 - 3.4 /CUMM) 0.4 L Absolute Monocytes (0.10 - 0.60 /CUMM) 0.1 L Absolute Eosinophils (0.0 - 0.7 /CUMM) 0 Absolute Basophils (0.0 - 0.2 /CUMM) 0 PUBS MCHC (33.0 - 37.0 G/DL) 32.5 L Miscellaneous Phlebotomy Draw Site CRAWFORD 08/26 08/26 08/26 08/26 2210 1639 1630 1608 Blood Gas pH (7.35 - 7.45 PH) 7.24 *L pCO2 (35 - 45 TORR) 39 pO2 (80 - 100 TORR) 119 H HCO3 (21 - 28 MEQ/L) 16 L ABG O2 Sat (Measured) (>96.0 %) 97.0 P-50 (Temp Corrected) N Carboxyhemoglobin (1.5 - 5.0 %) 0.8 L O2 Concentration % 100% Temperature (97.0 - 100.0 FARH) 98.5 Respiration Rate (BPM) 20 O2 Delivery Method ESPRIT Vent Mode AC Expiratory Pressure (CMH2O/P) 5 Tidal Volume (CC) 500 Chemistry Lactic Acid Cancelled Cancelled Miscellaneous Phlebotomy Draw Site BONNIE Other Body Source Fluid WBC Cancelled Fld Total RBCs Counted Cancelled 08/26 08/26 08/26 1608 1345 1255 Blood Gas pH (7.35 - 7.45 PH) 7.29 *L 7.25 *L pCO2 (35 - 45 TORR) 38 39 pO2 (80 - 100 TORR) 84 45 *L HCO3 (21 - 28 MEQ/L) 17 L 17 L ABG O2 Sat (Measured) (>96.0 %) 94.0 L 72.0 L P-50 (Temp Corrected) N N Carboxyhemoglobin (1.5 - 5.0 %) 0.6 L 1.0 L O2 Concentration % 60% 100% Respiration Rate (BPM) 24 O2 Delivery Method BIPAP HFNC WITH 45L FLOW Vent Mode ST Expiratory Pressure (CM H2O P) 6 Inspiratory Pressure (CM H2O P) 14 Miscellaneous Phlebotomy Draw Site RIGHT RADIAL RIGHT BRACHIAL Other Body Source Fluid Total Protein Cancelled Fluid Albumin Cancelled Fluid LDH Cancelled 08/26 1240 Chemistry Sodium (137 - 145 mmol/L) 147 H Potassium (3.5 - 5.1 mmol/L) 4.0 Chloride (98 - 107 mmol/L) 114 H Carbon Dioxide (22 - 30 mmol/L) 18 L Anion Gap (5 - 16) 15 BUN (7 - 17 mg/dL) 41 H Creatinine (0.5 - 1.0 mg/dL) 1.7 H Estimated GFR (>60 ml/min) 31 L Glucose (65 - 99 mg/dL) 65 Lactic Acid (0.7 - 2.1 mmol/L) 2.4 H Calcium (8.4 - 10.2 mg/dL) 7.6 L Phosphorus (2.5 - 4.5 mg/dL) 5.0 H Magnesium (1.6 - 2.3 mg/dL) 2.0 Total Bilirubin (0.2 - 1.3 mg/dL) 1.1 AST (14 - 36 U/L) 142 H ALT (9 - 52 U/L) 78 H Troponin I (< 0.11 ng/ml) 0.05 Albumin (3.5 - 5.0 g/dL) 2.3 L Coagulation PT (9.4 - 12.5 SEC) 16.0 H INR (0.90 - 1.19) 1.53 H Last 24 Hours of [place] Results: Blood cultures August 25 one bottle positive for a gram-positive carlos to be identified OR culture August 26 labeled peritoneal fluid positive for gram negatives rods Sputum culture August 26 light growth of yeast Urine culture August 25 negative Recent Imaging Studies: HIDA scan August 26 normal Assessment/Plan Impression: Critically ill patient now 1 day status post Granger's procedure for a perforated sigmoid colon with abscess formation and with gross purulent peritonitis noted. She was febrile overnight with white blood cell count increased this morning, though with decreased bands, on Ceftriaxone and Flagyl, with gram-negative rods isolated from the OR culture and with one positive blood culture for a gram-positive carlos, possibly Clostridium, but with ID pending. C. difficile seems unlikely and, if the toxin test is negative, her isolation can be discontinued. Suggestion: 1. Follow-up stool for C. difficile 2. Discontinue isolation if C. difficile is negative 3. Follow-up blood and OR cultures 4. Discontinue po Vancomycin 5. Continue Ceftriaxone and Flagyl pending above
[2016-08-27 12:00] VITALS: BP 110/80
[2016-08-27 16:00] VITALS: BP 112/70
[2016-08-28] VITALS: BP 113/70
[2016-08-28 05:56] LABS: ABSOLUTE BASOPHIL COUNT 0 /CUMM (0.0-0.2); ABSOLUTE EOSINOPHIL COUNT 0 /CUMM (0.0-0.7); ABSOLUTE GRANULOCYTE CT 24.1 /CUMM (1.4-6.5); ABSOLUTE LYMPH COUNT 0.6 /CUMM (1.2-3.4); ABSOLUTE MONOCYTE COUNT 0.1 /CUMM (0.10-0.60); BASOPHIL % 0 % (0.0-2.0); EOSINOPHIL % 0 % (0-5); MEAN CORPUSCULAR HGB 32.2 PG (27.0-31.0); MEAN CORPUSCULAR HGB CONC 33.8 G/DL (33.0-37.0); MEAN CORPUSCULAR VOLUME 95.4 FL (81.0-99.0); MEAN PLATELET VOLUME 9.2 FL (7.4-10.4); RBC DISTRIBUTION WIDTH 14.6 % (11.5-14.5); RED BLOOD CELL CT 2.86 /CUMM (4.20-5.40); WHITE BLOOD CELL COUNT 24.8 /CUMM (4.8-10.8)
[2016-08-28 06:03] LABS: HEMATOCRIT 27.3 % (37-47)
[2016-08-28 06:21] LABS: PLATELET COUNT 104 /CUMM (130-400)
--- NOTE | 2016-08-28 07:09 | RADIOLOGY REPORT ---
EXAMINATION: CHEST 1 VIEW CLINICAL INFORMATION: Intubated. COMPARISON: Multiple prior exams are reviewed. The most recent is from 08/26/2016. TECHNIQUE: An AP view of the chest is provided. FINDINGS: The cardiac silhouette is not enlarged. The endotracheal tube, enteric tube and right central venous line are in unchanged position. The mediastinal and hilar contours are unremarkable. There are neither pleural effusions nor pneumothoraces. There is bibasilar atelectasis. The osseous structures are unremarkable. IMPRESSION: Lines and tubes in place as stated above. Bibasilar atelectasis.
--- NOTE | 2016-08-28 07:54 | PN- General Surgery ---
See Addendum Subjective Subjective: Pt is now about 1.5 days s/p Ho's procedure for perforated sigmoid colon with abscess formation and purulent/feculent peritonitis. She remains intubated, but has been weaned off pressors since about 4 am. Objective Vital Signs and I&Os Vital Signs Date Time Temp Pulse Resp B/P B/P Pulse O2 O2 Flow FiO2 Mean Ox Delivery Rate 08/28 0613 50 08/28 0400 95 Ventilator 50% 08/28 0256 50 08/28 0046 50 08/28 0035 77 111/70 05/ 0000 95 Ventilator 50% 08/28 0000 98.8 79 26 113/70 95 Ventilator 50% 05/20 2237 50 05 2123 90 99/64 08/27 2000 92 Ventilator 50% 05/20 1940 50 0520 1620 50 05/ 1600 98.9 106 26 112/70 94 Ventilator 50% 05/ 1600 94 Ventilator 50% / 1355 50 08/27 1200 99.1 102 26 110/80 94 Ventilator 60% 08/27 1105 60 / 0943 Ventilator 70% 08/27 0833 70 Intake & Output 08/28 1600 08/28 0800 08/28 0000 08/27 1600 08/27 0800 08/27 0000 Intake Total 1171 1139 1936 2485 4475 Output Total 245 330 410 497 395 Balance 868 297 2703 1988 4080 Intake, IV 1171 1139 1876 2395 4475 Intake, Oral 0 0 0 Intake, Other 0 60 90 Number 0 0 0 Bowel Movements Output, 10 20 40 45 95 Drainage Output, 25 100 250 350 0 Gastric Drainage Output, Other 150 Output, Stool 10 10 50 0 Output, Urine 200 200 70 102 150 Patient 129 lb Weight Urine output since 6 AM is almost 200 mL, so its improving. MANDY output since 6 AM is about 150 mL of bilious fluid. Physical Exam: General: Patient is intubated, but opens her eyes and is responsive to voice. Abdomen: Soft and mildly distended. The midline dressing remains clean and intact, so it was left in place. Stoma is pink and appears viable. There is a small amount of air and serous fluid in the bag. No bowel sounds were appreciated at the time of the exam. Extremities: The upper extremities contain 2+ edema, left greater than right. Lower extremities with mild trace edema. The toes feel a bit cooler versus immediately postop. Results Last 48 Hours of Labs: Laboratory Tests 08/28 08/27 08/27 3119 9573 4141 Blood Gas pH (7.35 - 7.45 PH) 7.32 L pCO2 (35 - 45 TORR) 30 L pO2 (80 - 100 TORR) 104 H HCO3 (21 - 28 MEQ/L) 15 L ABG O2 Sat (Measured) (>96.0 %) 96.0 P-50 (Temp Corrected) Y Carboxyhemoglobin (1.5 - 5.0 %) 0.3 L O2 Concentration % 70% Temperature (97.0 - 100.0 FARH) 101.1 H Respiration Rate (BPM) 26 O2 Delivery Method ESPRIT Vent Mode AC Expiratory Pressure (CMH2O/P) 5 Tidal Volume (CC) 500 Chemistry Sodium (137 - 145 mmol/L) 141 Potassium (3.5 - 5.1 mmol/L) 3.7 Chloride (98 - 107 mmol/L) 115 H Carbon Dioxide (22 - 30 mmol/L) 15 L Anion Gap (5 - 16) 11 BUN (7 - 17 mg/dL) 50 H Creatinine (0.5 - 1.0 mg/dL) 1.6 H Estimated GFR (>60 ml/min) 33 L Glucose (65 - 99 mg/dL) 72 Lactic Acid (0.7 - 2.1 mmol/L) 2.1 Calcium (8.4 - 10.2 mg/dL) 6.9 L Phosphorus (2.5 - 4.5 mg/dL) 4.3 Magnesium (1.6 - 2.3 mg/dL) 2.4 H Total Bilirubin (0.2 - 1.3 mg/dL) 0.4 AST (14 - 36 U/L) 62 H ALT (9 - 52 U/L) 53 H Creatine Kinase (30 - 135 U/L) Pending Albumin (3.5 - 5.0 g/dL) 1.7 L Hematology CBC w Diff MAN DIFF ORDERED WBC (4.8 - 10.8 /CUMM) 24.8 H RBC (4.20 - 5.40 /CUMM) 2.86 L Hgb (12.0 - 16.0 G/DL) 9.2 L Hct (37 - 47 %) 27.3 L MCV (81.0 - 99.0 FL) 95.4 MCH (27.0 - 31.0 PG) 32.2 H RDW (11.5 - 14.5 %) 14.6 H Plt Count (130 - 400 /CUMM) 104 L MPV (7.4 - 10.4 FL) 9.2 Gran % (42.2 - 75.2 %) 97.0 H Lymphocytes % (20.5 - 51.1 %) 2.4 L Monocytes % (1.7 - 9.3 %) 0.6 L Eosinophils % (0 - 5 %) 0 Basophils % (0.0 - 2.0 %) 0 L Absolute Granulocytes (1.4 - 6.5 /CUMM) 24.1 H Segmented Neutrophils (42.2 - 75.2 %) 81 H Band Neutrophils (0.0 - 5.0 %) 12 H Absolute Lymphocytes (1.2 - 3.4 /CUMM) 0.6 L Lymphocytes (20.5 - 51.1 %) 5 L Monocytes (1.7 - 9.3 %) 2 Absolute Monocytes (0.10 - 0.60 /CUMM) 0.1 L Absolute Eosinophils (0.0 - 0.7 /CUMM) 0 Absolute Basophils (0.0 - 0.2 /CUMM) 0 Platelet Estimate (ADEQUATE) DECREASED Anisocytosis 1+ PUBS MCHC (33.0 - 37.0 G/DL) 33.8 Miscellaneous Phlebotomy Draw Site [place] 08/27 08/27 08/27 0430 0250 0000 Blood Gas pH (7.35 - 7.45 PH) 7.34 L pCO2 (35 - 45 TORR) 31 L pO2 (80 - 100 TORR) 252 H HCO3 (21 - 28 MEQ/L) 16 L ABG O2 Sat (Measured) (>96.0 %) 99.0 P-50 (Temp Corrected) Y Carboxyhemoglobin (1.5 - 5.0 %) 0.2 L O2 Concentration % 100% Temperature (97.0 - 100.0 FARH) 98.8 Respiration Rate (BPM) 26 O2 Delivery Method ESPRIT Vent Mode AC Expiratory Pressure (CMH2O/P) 5 Tidal Volume (CC) 500 Chemistry Sodium (137 - 145 mmol/L) 144 Potassium (3.5 - 5.1 mmol/L) 4.4 Chloride (98 - 107 mmol/L) 117 H Carbon Dioxide (22 - 30 mmol/L) 13 L Anion Gap (5 - 16) 13 BUN (7 - 17 mg/dL) 44 H Creatinine (0.5 - 1.0 mg/dL) 1.5 H Estimated GFR (>60 ml/min) 35 L Glucose (65 - 99 mg/dL) 60 L Lactic Acid (0.7 - 2.1 mmol/L) 2.0 Calcium (8.4 - 10.2 mg/dL) 6.6 L Phosphorus (2.5 - 4.5 mg/dL) 4.8 H Magnesium (1.6 - 2.3 mg/dL) 1.7 Total Bilirubin (0.2 - 1.3 mg/dL) 0.9 AST (14 - 36 U/L) 100 H ALT (9 - 52 U/L) 63 H Albumin (3.5 - 5.0 g/dL) 1.8 L Hematology CBC w Diff MAN DIFF ORDERED WBC (4.8 - 10.8 /CUMM) 25.1 H RBC (4.20 - 5.40 /CUMM) 3.43 L Hgb (12.0 - 16.0 G/DL) 11.0 L Hct (37 - 47 %) 32.9 L MCV (81.0 - 99.0 FL) 95.8 MCH (27.0 - 31.0 PG) 32.1 H RDW (11.5 - 14.5 %) 14.4 Plt Count (130 - 400 /CUMM) 250 MPV (7.4 - 10.4 FL) 8.7 Gran % (42.2 - 75.2 %) 98.2 H Lymphocytes % (20.5 - 51.1 %) 1.4 L Monocytes % (1.7 - 9.3 %) 0.4 L Eosinophils % (0 - 5 %) 0 Basophils % (0.0 - 2.0 %) 0 L Absolute Granulocytes (1.4 - 6.5 /CUMM) 24.6 H Segmented Neutrophils (42.2 - 75.2 %) 91 H Band Neutrophils (0.0 - 5.0 %) 6 H Absolute Lymphocytes (1.2 - 3.4 /CUMM) 0.3 L Lymphocytes (20.5 - 51.1 %) 2 L Monocytes (1.7 - 9.3 %) 1 L Absolute Monocytes (0.10 - 0.60 /CUMM) 0.1 L Absolute Eosinophils (0.0 - 0.7 /CUMM) 0 Absolute Basophils (0.0 - 0.2 /CUMM) 0 Platelet Estimate (ADEQUATE) ADEQUATE Normocytic RBCs VERIFIED Normochromic RBCs VERIFIED PUBS MCHC (33.0 - 37.0 G/DL) 33.5 Miscellaneous Phlebotomy Draw Site [place] Other Body Source Fld Total RBCs Counted (%) 100 08/26 08/26 08/26 2215 2215 2210 Blood Gas pH (7.35 - 7.45 PH) 7.24 *L pCO2 (35 - 45 TORR) 39 pO2 (80 - 100 TORR) 119 H HCO3 (21 - 28 MEQ/L) 16 L ABG O2 Sat (Measured) (>96.0 %) 97.0 P-50 (Temp Corrected) N Carboxyhemoglobin (1.5 - 5.0 %) 0.8 L O2 Concentration % 100% Temperature (97.0 - 100.0 FARH) 98.5 Respiration Rate (BPM) 20 O2 Delivery Method ESPRIT Vent Mode AC Expiratory Pressure (CMH2O/P) 5 Tidal Volume (CC) 500 Chemistry Sodium (137 - 145 mmol/L) 146 H Potassium (3.5 - 5.1 mmol/L) 4.4 Chloride (98 - 107 mmol/L) 116 H Carbon Dioxide (22 - 30 mmol/L) 16 L Anion Gap (5 - 16) 15 BUN (7 - 17 mg/dL) 40 H Creatinine (0.5 - 1.0 mg/dL) 1.4 H Estimated GFR (>60 ml/min) 38 L Glucose (65 - 99 mg/dL) 72 Lactic Acid (0.7 - 2.1 mmol/L) 2.2 H Calcium (8.4 - 10.2 mg/dL) 7.0 L Phosphorus (2.5 - 4.5 mg/dL) 5.8 H Magnesium (1.6 - 2.3 mg/dL) 1.6 Total Bilirubin (0.2 - 1.3 mg/dL) 0.9 AST (14 - 36 U/L) 127 H ALT (9 - 52 U/L) 61 H Albumin (3.5 - 5.0 g/dL) 1.9 L Hematology CBC w Diff NO MAN DIFF REQ WBC (4.8 - 10.8 /CUMM) 19.4 H RBC (4.20 - 5.40 /CUMM) 3.52 L Hgb (12.0 - 16.0 G/DL) 11.1 L Hct (37 - 47 %) 34.1 L MCV (81.0 - 99.0 FL) 96.7 MCH (27.0 - 31.0 PG) 31.4 H RDW (11.5 - 14.5 %) 14.6 H Plt Count (130 - 400 /CUMM) 310 MPV (7.4 - 10.4 FL) 8.4 Gran % (42.2 - 75.2 %) 97.5 H Lymphocytes % (20.5 - 51.1 %) 1.8 L Monocytes % (1.7 - 9.3 %) 0.6 L Eosinophils % (0 - 5 %) 0.1 Basophils % (0.0 - 2.0 %) 0 L Absolute Granulocytes (1.4 - 6.5 /CUMM) 19.0 H Absolute Lymphocytes (1.2 - 3.4 /CUMM) 0.4 L Absolute Monocytes (0.10 - 0.60 /CUMM) 0.1 L Absolute Eosinophils (0.0 - 0.7 /CUMM) 0 Absolute Basophils (0.0 - 0.2 /CUMM) 0 PUBS MCHC (33.0 - 37.0 G/DL) 32.5 L Miscellaneous Phlebotomy Draw Site [place] 08/26 08/26 08/26 08/26 1639 1630 1608 1608 Chemistry Lactic Acid Cancelled Cancelled Other Body Source Fluid WBC Cancelled Fld Total RBCs Counted Cancelled Fluid Total Protein Cancelled Fluid Albumin Cancelled Fluid LDH Cancelled 08/26 08/26 08/26 1345 1255 1240 Blood Gas pH (7.35 - 7.45 PH) 7.29 *L 7.25 *L pCO2 (35 - 45 TORR) 38 39 pO2 (80 - 100 TORR) 84 45 *L HCO3 (21 - 28 MEQ/L) 17 L 17 L ABG O2 Sat (Measured) (>96.0 %) 94.0 L 72.0 L P-50 (Temp Corrected) N N Carboxyhemoglobin (1.5 - 5.0 %) 0.6 L 1.0 L O2 Concentration % 60% 100% Respiration Rate (BPM) 24 O2 Delivery Method BIPAP HFNC WITH 45L FLOW Vent Mode ST Expiratory Pressure (CM H2O P) 6 Inspiratory Pressure (CM H2O P) 14 Chemistry Sodium (137 - 145 mmol/L) 147 H Potassium (3.5 - 5.1 mmol/L) 4.0 Chloride (98 - 107 mmol/L) 114 H Carbon Dioxide (22 - 30 mmol/L) 18 L Anion Gap (5 - 16) 15 BUN (7 - 17 mg/dL) 41 H Creatinine (0.5 - 1.0 mg/dL) 1.7 H Estimated GFR (>60 ml/min) 31 L Glucose (65 - 99 mg/dL) 65 Lactic Acid (0.7 - 2.1 mmol/L) 2.4 H Calcium (8.4 - 10.2 mg/dL) 7.6 L Phosphorus (2.5 - 4.5 mg/dL) 5.0 H Magnesium (1.6 - 2.3 mg/dL) 2.0 Total Bilirubin (0.2 - 1.3 mg/dL) 1.1 AST (14 - 36 U/L) 142 H ALT (9 - 52 U/L) 78 H Troponin I (< 0.11 ng/ml) 0.05 Albumin (3.5 - 5.0 g/dL) 2.3 L Coagulation PT (9.4 - 12.5 SEC) 16.0 H INR (0.90 - 1.19) 1.53 H Miscellaneous Phlebotomy Draw Site RIGHT RADIAL RIGHT BRACHIAL Microbiology: Intra-abdominal fluid culture from the OR reveals scant growth of gram-negative rods. Final results are still pending. 1 of 2 Blood cultures from admission reveals a preliminary finding of gram- positive rods. Final results are also still pending. Assessment/Plan Assessment/Plan Pt is a 60 yo F with a hx of COPD, smoking, and anxiety/depression who was admitted to the ICU yesterday with sepsis of unidentified source. Upon review of previously read CT scan, it was determined that there was some free air. She is now s/p Ex lap with Ho's procedure for perforated sigmoid colon with abscess formation and gross purulent peritonitis. She remains in the ICU in guarded condition. Plan: -Continue IV antibiotics with Rocephin and flagyl for purulent peritonitis. Follow-up final blood and our fluid cultures and sensitivities. By mouth Vanco has been discontinued. -Continue IV hydration. Monitor Arterial BP and CVP. Most recent CVP was 4, so okay to provide more hydration if patient becomes hypotensive. -Continue NPO until extubated and improved bowel function. NGT to low wall suction. -Subcutaneous heparin is being held due to some cytopenia. -Protonix for GI ppx. -Keep hope for critical I/O's. -Monitor labs. Replete electrolytes as needed. -Ostomy care. -Leave surgical dressing in place for now. Pt has packing at inferior aspect. -TRCs. -Medical management per ICU team.
--- NOTE | 2016-08-28 07:59 | PN- Resident CRCU ---
Subjective HPI/CRCU Issues: Patient seen and examined at bedside this AM. She is resting comfortably in bed in no acute distress. She remains on mechanical ventilation and her FiO2 requirements are appropriate/decreasing. She is on morphine PRN for pain but no IV drips for sedation. Urine output slowly improving and ostomy noted to be pink and not retracted. Of note, levophed discontinued at 4:15 AM and BP holding well. 24 Hour Events: Vital signs last 24 hours: T 97.8-99.4, HR 75-114, RR 26-27, BP 96-138/58-76, O2 91-98% on AC ventilation RR 26, VT 500, FiO2 70-->50%, 5 PEEP. Total input: 4246 cc in 24 hours Total output: 1292 cc in 24 hours Objective Vital Signs & I&O Last 8 Hrs of Vitals and I&O: T 97.8-99.4, HR 75-114, RR 26-27, BP 96-138/58-76, O2 91-98% on AC ventilation RR 26, VT 500, FiO2 70-->50%, 5 PEEP. Exam General Appearance: well developed/nourished, no apparent distress, sedated, intubated Head: atraumatic, normal appearance Ears, Nose, Throat: normal pharynx Neck: normal inspection, No JVD Respiratory: normal breath sounds, chest non-tender Cardiovascular: regular rate/rhythm Gastrointestinal: Colostomy pink and small amount of liquid drainage noted. Midline incision dressed in clean white dressing. + BS noted. Extremities: normal inspection, no edema Cranial Nerves: PERRL Skin: warm/dry Nutrition Nutrition: NPO Current Medications: Current Medications Sig/Ry Start time Last Medication Dose Route Stop Time Status Admin Acetaminophen 1,000 MG Q6P PRN 08/27 0230 AC 08/27 N/A 1 UNIT IV 0236 Albuterol Sulfate 3 ML Q4H PRN 08/27 1000 AC 08/28 INH 1309 Ceftriaxone Sodium 1,000 MG 2100 08/26 220 AC 08/27 IV 2115 Dextrose/Sodium 1,000 ML Q13H 08/28 0815 AC 08/28 Chloride IV 08/29 0354 0931 Dextrose/Sodium 1,000 ML Q8H 08/26 2200 DC 08/27 Chloride IV 1425 Heparin Sodium 5,000 UNIT Q8 08/27 0600 DC 08/28 (Porcine) SC 0530 Lorazepam 0.5 MG Q6P PRN 08/26 220 AC 08/28 IV 0930 Metronidazole 500 MG Q8H 08/26 2199 AC 08/28 N/A 1 UNIT IV 0530 Morphine Sulfate 2 MG Q2P PRN 08/26 220 AC 08/28 IV 1121 Norepinephrine 4 MG Q24H 08/27 0015 DC 08/27 Dextrose/Water 250 ML IV 2123 Pantoprazole Sodium 40 MG DAILY 08/27 1000 AC 08/28 IV 0930 Potassium Chloride 20 MEQ Q1H 08/28 0815 DC 08/28 IV 08/28 0916 1111 Sodium Chloride 1,000 ML Q6H 08/27 1530 DC 08/28 IV 0418 Impression/Plan Impression/Problem List Impression: Ms. Camacho is a 60 year old female with H anxiety, depression, COPD , prior episode of severe clostridium difficile infection in 2015, tobacco abuse and gastritis who presented to the [place] ED after one week of altered mental status, decreased oral intake and possible withdrawl symptoms as her clonazepam was being titrated off per doctor instructions. She was found to be hypotensive, febrile and altered while in the [place] ED. In the ED: Vital signs showed Tmax 101.5, HR 116, RR 20, BP 93/62 and O2 saturation 90% on room air. Labs were significant for WBC 18.1 with 37 bands, H&H 13.7/41.6, Plt 623, Na 143 , K 3.6, Cl 107, HCO3 16, BUN/cre 28/1.8, Glu 98, Lactic acid 2.9, AST 62, ALT 42, CK 370, troponin 0.05, proBNP 51531, amylase 153, lipase <10, and UA with high protein, positive nitrite, high urobilinogen, 50 WBCs, moderate bacteria and large hgb. CXR showed no acute pulmonary process. Head CT was negative for acute pathology. Patient was admitted to the ICU and the following is the current management: 1. Severe sepsis secondary to peritonitis from perforated sigmoid colon with abscess formation * Patient febrile, + leukocytosis with bandemia, hypotensive and tachycardic on admission * Post-op from Harmann's procedure with Dr. Marcello MD; patient remains intubated off pressors or sedation * ID consult appreciated, continue to follow recommendations * Continue IV ceftriaxone and IV flagyl for antbiotic coverage * Continue D51/2NS at 150 cc/h (patient slightly hypoglycemic this AM and requires maitenance fluids) * Cdiff NEGATIVE- will take off of isolation * F/U Pancultures sensitivities/specificities, so far OR cultures show e.coli, yeast, gram + cocci and alpha strep; BC x 1 bottle shows gram + rods (ID pending ) * Surgery follow up appreciated, continue NGT and NPO for now; consider TPN in 1 -2 days pending clinical course * IV protonix while intubated 2. Metabolic encephalopathy * Likely secondary to severe sepsis from sigmoid perforation/peritonitis * Patient AAOx1 and unable to provide detailed history/account of events leading up to admission * CT head negative for acute intracranial pathology * Hold all sedatives, hold psych meds for now and restart when improved * Keep patient NPO for now 3. Acute hypoxemic respiratory failure * Patient initially placed on non-rebreather but was transitioned to high flow nasal cannula and ultimately BiPAP * Patient tolerated BiPAP well but was intubated for Ho's procedure; FiO2 requirements slightly increasing with CXR noting atelectasis, will go up on PEEP for now and repeat ABG in AM or if clinically indicated * Aspiration precautions * No CPAP trial until FiO2 at least 40% 4. SIERRA * Likely prerenal in the setting of severe sepsis * No signficiant improvement today, continue IVF hydration * Monitor renal function and electrolytes with ICU bundle * Monitor urine output, strict Is/Os 5. Sinus tachycardia with T wave changes * Continuous telemetry monitoring * Troponins negative x 3 * Echo shows normal global LV function without wall motion abnormalities and normal pulm artery systolic pressure * Monitor vital signs closely 6. Thrombocytopenia * Plt this AM 104, a large decrease from 623 on admission * 4Ts score placed patient at low risk for HIT (<5%) * However, DC heparin SC and monitor Plt count with CBC FULL CODE Diet: NPO DVTP: ALPS Problem List: 1. History of Clostridium difficile infection 2. Lactic acidosis 3. Hypotension 4. Perforated viscus 5. Severe sepsis 6. Status post Ho's procedure Pain Ratin Tomorrow's Labs & Rationales: CBC (leukocytosis, anemia) ICU bundle (SIERRA on CKD) Plan DVT/Prophylaxis: pharmacological
[2016-08-28 08:00] VITALS: BP 110/70
--- NOTE | 2016-08-28 09:03 | PN- CRCU ---
Subjective HPI/Critical Care Issues: pt seen and examined remains on mechanical ventilation 50% fio2 now improved from 70% off vasopressors now on d51/2ns Objective Current Medications: Current Medications Sig/Ry Start time Last Medication Dose Route Stop Time Status Admin Acetaminophen 1,000 MG Q6P PRN 08/27 0230 AC 08/27 N/A 1 UNIT IV 0236 Albuterol Sulfate 3 ML Q4H PRN 08/27 1000 AC INH Ceftriaxone Sodium 1,000 MG 2100 08/26 220 AC 08/27 IV 2115 Dextrose/Sodium 1,000 ML Q13H 08/28 0815 AC Chloride IV 08/29 0354 Dextrose/Sodium 1,000 ML Q8H 08/26 2200 DC 08/27 Chloride IV 1425 Heparin Sodium 5,000 UNIT Q8 08/27 0600 DC 08/28 (Porcine) SC 0530 Lorazepam 0.5 MG Q6P PRN 08/26 220 AC 08/28 IV 0154 Magnesium Sulfate 1 GM Q2H 08/27 0800 DC 08/27 Dextrose/Water 100 ML IV 08/27 1159 1600 Metronidazole 500 MG Q8H 08/26 2200 AC 08/28 N/A 1 UNIT IV 0530 Morphine Sulfate 2 MG Q2P PRN 08/26 220 AC 08/28 IV 0312 Norepinephrine 4 MG Q24H 08/27 0015 DC 08/27 Dextrose/Water 250 ML IV 2123 Pantoprazole Sodium 40 MG DAILY 08/27 1000 AC 08/27 IV 0939 Potassium Chloride 20 MEQ Q1H 08/28 0815 AC IV 08/28 0916 Sodium Chloride 1,000 ML Q6H 08/27 1530 DC 08/28 IV 0418 Vancomycin HCl 500 MG Q6 08/26 2359 DC 08/27 PO 0520 Vital Signs & I&O Last 24 Hrs of Vitals and I&O: Vital Signs Date Time Temp Pulse Resp B/P B/P Pulse O2 O2 Flow FiO2 Mean Ox Delivery Rate 08/28 0613 50 08/28 0400 95 Ventilator 50% 08/28 0256 50 08/28 0046 50 08/28 0035 77 111/70 08/28 0000 95 Ventilator 50% 08/28 0000 98.8 79 26 113/70 95 Ventilator 50% 08/27 2237 50 08/27 2123 90 99/64 08/27 2000 92 Ventilator 50% 05/20 1940 50 08/27 1620 50 08/27 1600 98.9 106 26 112/70 94 Ventilator 50% 08/27 1600 94 Ventilator 50% 08/27 1355 50 08/27 1200 99.1 102 26 110/80 94 Ventilator 60% 08/27 1105 60 08/27 0943 Ventilator 70% Intake & Output 08/28 1600 08/28 0800 08/28 0000 Intake Total 1171 1139 Output Total 245 330 Balance 926 809 Intake, IV 1171 1139 Intake, Oral 0 Intake, Other 0 Number 0 0 Bowel Movements Output, 10 20 Drainage Output, 25 100 Gastric Drainage Output, Stool 10 10 Output, Urine 200 200 Exam Other Physical Findings: gen awake heent intubated cvs s1, s2 lungs transmitted abd soft, dressing intact ext no edema Results Last 24 Hrs of Lab Results: Laboratory Tests 08/28/16 0415: Anion Gap 11, Estimated GFR 33 L, Glucose 72, Calcium 6.9 L, Phosphorus 4.3, Magnesium 2.4 H, Total Bilirubin 0.4, AST 62 H, ALT 53 H, Creatine Kinase 402 H, Albumin 1.7 L, CBC w Diff MAN DIFF ORDERED, RBC 2.86 L, MCV 95.4, MCH 32.2 H, RDW 14.6 H, MPV 9.2, Gran % 97.0 H, Lymphocytes % 2.4 L, Monocytes % 0.6 L, Eosinophils % 0, Basophils % 0 L, Absolute Granulocytes 24.1 H, Segmented Neutrophils 81 H, Band Neutrophils 12 H, Absolute Lymphocytes 0.6 L, Lymphocytes 5 L, Monocytes 2, Absolute Monocytes 0.1 L, Absolute Eosinophils 0 , Absolute Basophils 0, Platelet Estimate DECREASED, Anisocytosis 1+, PUBS MCHC 33.8 Impression/Plan Impression/Plan Impression/Plan: Impression 60 year old woman * Resolved septic shock - pericolic abscess s/p drainage and sigmoid colectomy with end colostomyvere sepsis - origin maybe urinary source, abdominal pathology and aspiration pneumonia * SIERRA most likely secondary to prerenal causes - improving * new thrombocytopenia, likely coagulopathy due to sepsis, however will hold heparin products at this time, when recovers can resume chemical prophylaxis Plan Respiratory -TRC/Nebs -aspiration precautions -reduce fio2 as tolerated, no cpap trial until at least 40%fio2 ID -afebrile 24 hrs, leukocytosis persists but stable -continue abx -GNR/GPR in cultures, follow up sensitivities/specificites -ID consultation follow up CVS -monitor hemodynamics -monitor cvp Heme -monitor cbc, coags -new thrombocytopenia, likely coagulopathy due to sepsis, however will hold heparin products at this time, when recovers can resume chemical prophylaxis Metabolic -SIERRA, prerenal most likely cause -add d51/2ns due to hypoglycemia Alimentary -aspiration precautions -f/u surgery for nutrition, currently NPO Neuro -not requiring sedation, morphine and ativan pushes -psych appreciated -psych follow up when extubated DVT prophylaxis at all times - new thrombocytopenia, likely coagulopathy due to sepsis, however will hold heparin products at this time, when recovers can resume chemical prophylaxis TTS 40 min
[2016-08-28 09:45] LABS: PT 12.2 SEC (9.4-12.5)
[2016-08-28 12:00] VITALS: BP 110/68
[2016-08-28 16:00] VITALS: BP 114/54
--- NOTE | 2016-08-28 16:00 | NUR ---
ASSUMED CARE OF PATIENT. PATIENT AWAKE AND RESTLESS SELENE, MOVING ALL EXTREMITIES. PATIENT NODS HEAD WHEN ASKED IF SHE IS IN PAIN. PATIENT REMAINS INTUBATED AND VENTED, LUNGS DIMINISHED AT BASES, MONITOR SHOWS NSR WITHOUT ECTOPY VITAL SIGNS STABLE. ART LINE INTACT TO L WRIST, CENTRAL LINE INTACT TO RIJ. ABD SOFT AND TENDER WITH SURGICAL DRESSING TO MIDLINE INCISION AND NEW COLOSTOMY STOMA TO LLQ. SCANT DRAINAGE FROM STOMA AT THIS TIME, COLLECTION BAG IN PLACE. SKIN OTHERWISE INTACT. TOBAR DRAINING CLEAR FABIAN URINE.
[2016-08-29] VITALS: BP 120/60
--- NOTE | 2016-08-29 01:08 | NUR ---
PT WAKES UP WHEN CALLED HER NAME. RESTLESS. MORHINE 2MG IV GIVEN. INTUBATED AT 55% FIO2, SATURATON 91%. LUNGS SOUND CLEAR. NGT TO RIGHT NARES IN PLACE; HOOKED TO LWS, GREEN DRAINAGE NOTED. LLQ COLOSTOMY IN PLACE, STOMA RED AND DRAINING TO SEROSANGUINOUS DRAINAGE. MANDY TO LLQ INTACT, SEROUS DRAINAGE NOTED. MID LINE INCISION DRY AND INTACT. D51/2 NS AT 150ML/H INFUSING. TOBAR IN PLACE, ADEQUATE UO NOTED.
[2016-08-29 04:54] LABS: ABSOLUTE BASOPHIL COUNT 0 /CUMM (0.0-0.2); ABSOLUTE EOSINOPHIL COUNT 0 /CUMM (0.0-0.7); ABSOLUTE GRANULOCYTE CT 21.9 /CUMM (1.4-6.5); ABSOLUTE LYMPH COUNT 0.2 /CUMM (1.2-3.4); ABSOLUTE MONOCYTE COUNT 0.2 /CUMM (0.10-0.60); BASOPHIL % 0 % (0.0-2.0); EOSINOPHIL % 0.1 % (0-5); MEAN CORPUSCULAR HGB 31.3 PG (27.0-31.0); MEAN CORPUSCULAR HGB CONC 32.8 G/DL (33.0-37.0); MEAN CORPUSCULAR VOLUME 95.4 FL (81.0-99.0); MEAN PLATELET VOLUME 9.4 FL (7.4-10.4); PLATELET COUNT 98 /CUMM (130-400); RBC DISTRIBUTION WIDTH 15.2 % (11.5-14.5); RED BLOOD CELL CT 2.83 /CUMM (4.20-5.40); WHITE BLOOD CELL COUNT 22.4 /CUMM (4.8-10.8)
--- NOTE | 2016-08-29 06:51 | PN- Resident CRCU ---
Subjective HPI/CRCU Issues: Patient seen and examined at bedside this AM. She remains on mechanical ventilation. She continues to have low output in her hope catheter but otherwise remained afebrile and no other concerns noted. Patient remains hemodynamically stable off of presors though her FiO2 requirements are slightly increased. 24 Hour Events: Vital signs last 24 hours: T 96.8-98.4, HR 74-107, RR 18-33, BP 95-127/43-73, O2 90-95% on AC ventilation RR 20 TV 500, FiO2 55% 5 PEEP. Total input last 24 hours: 4168 cc Total output last 24 hours: 1930 cc Objective Vital Signs & I&O Last 8 Hrs of Vitals and I&O: T 96.8-98.4, HR 74-107, RR 18-33, BP 95-127/43-73, O2 90-95% on AC ventilation RR 20 TV 500, FiO2 55% 5 PEEP. Exam General Appearance: no apparent distress, intubated Head: atraumatic, normal appearance Ears, Nose, Throat: hearing grossly normal, Dry mucous membranes Neck: normal inspection, No JVD Respiratory: normal breath sounds, chest non-tender, no respiratory distress Cardiovascular: regular rate/rhythm Gastrointestinal: No bowel sounds appreciated, slightly distened, dressing changes per surgery this AM. Stoma pink and minimal amount of fluid in ostomy bag. Extremities: normal inspection, no edema Cranial Nerves: PERRL Skin: warm/dry Skin Temp/Moisture Exam: Warm/Dry Nutrition Nutrition: NPO Current Medications: Current Medications Sig/Ry Start time Last Medication Dose Route Stop Time Status Admin Acetaminophen 1,000 MG Q6P PRN 08/27 0230 AC 08/27 N/A 1 UNIT IV 0236 Albuterol Sulfate 3 ML BID 08/28 2199 AC 08/28 INH 2154 Albuterol Sulfate 3 ML Q4H PRN 08/27 1000 AC 08/28 INH 1309 Ceftriaxone Sodium 1,000 MG 2100 08/26 2199 AC 08/28 IV 210 Chlorhexidine 15 ML TID 08/29 1000 AC Gluconate PO Dextrose/Sodium 1,000 ML Q13H 08/28 0815 08/28 Chloride IV 08/29 2333 2253 Lorazepam 0.5 MG Q6P PRN 08/26 2199 AC 08/29 IV 0519 Metronidazole 500 MG Q8H 08/26 2199 AC 08/29 N/A 1 UNIT IV 0514 Morphine Sulfate 2 MG Q2P PRN 08/26 2200 AC 08/29 IV 0857 Pantoprazole Sodium 40 MG DAILY 08/27 1000 AC 08/28 IV 0930 Potassium Chloride 20 MEQ Q1H 08/29 0700 DC 08/29 IV 08/29 0801 0849 CXR Findings: 08/29/16 CXR: IMPRESSION: Except for mild apparent increase in bibasilar nonspecific airspace disease, no other significant interval change is present since 08/28/2016. Impression/Plan Impression/Problem List Impression: Ms. Camacho is a 60 year old female with PMH anxiety, depression, COPD , prior episode of severe clostridium difficile infection in 2016, tobacco abuse and gastritis who presented to the [facility] ED after one week of altered mental status, decreased oral intake and possible withdrawl symptoms as her clonazepam was being titrated off per doctor instructions. She was found to be hypotensive, febrile and altered while in the [facility] ED. In the ED: Vital signs showed Tmax 101.5, HR 116, RR 20, BP 93/62 and O2 saturation 90% on room air. Labs were significant for WBC 18.1 with 37 bands, H&H 13.7/41.6, Plt 623, Na 143 , K 3.6, Cl 107, HCO3 16, BUN/cre 28/1.8, Glu 98, Lactic acid 2.9, AST 62, ALT 42, CK 370, troponin 0.05, proBNP 34385, amylase 153, lipase <10, and UA with high protein, positive nitrite, high urobilinogen, 50 WBCs, moderate bacteria and large hgb. CXR showed no acute pulmonary process. Head CT was negative for acute pathology. Patient was admitted to the ICU and the following is the current management: 1. Severe sepsis secondary to peritonitis from perforated sigmoid colon with abscess formation * Patient febrile, + leukocytosis with bandemia, hypotensive and tachycardic on admission * Post-op day #3 from Harmann's procedure with Dr. Marcello MD; patient remains intubated off pressors or sedation, ostomy pink and viable * ID consult appreciated, continue to follow recommendations * Continue IV ceftriaxone and IV flagyl for antbiotic coverage * Continue D51/2NS at 150 cc/h * Cdiff NEGATIVE- taken off of isolation * F/U Pancultures sensitivities/specificities, so far OR cultures show e.coli, yeast, gram + cocci and alpha strep; BC x 1 bottle shows gram + rods (ID pending ) * Surgery follow up appreciated, continue NGT and NPO for now; consider TPN pending clinical course * IV protonix while intubated 2. Metabolic encephalopathy, IMPROVING * On admission, likely secondary to severe sepsis from sigmoid perforation/ peritonitis * CT head negative for acute intracranial pathology * Hold all sedatives, hold psych meds for now and restart when improved * Keep patient NPO for now 3. Acute hypoxemic respiratory failure * Patient initially placed on non-rebreather but was transitioned to high flow nasal cannula/ BiPAP due to tachypnea/apparent respiratory distress * Patient tolerated BiPAP well but was intubated for Ho's procedure; FiO2 requirements slightly increasing with CXR sowing increase in biabilsar nonspecific airpsace disease * Aspiration precautions * No CPAP trial until FiO2 at least 40% 4. SIERRA * Likely prerenal in the setting of severe sepsis * Improving, continue IVF hydration * Monitor renal function and electrolytes with ICU bundle * Monitor urine output, strict Is/Os 5. Sinus tachycardia with T wave changes, IMPROVING * Continuous telemetry monitoring * Troponins negative x 3 * Echo shows normal global LV function without wall motion abnormalities and normal pulm artery systolic pressure * Monitor vital signs closely 6. Thrombocytopenia * Plt this AM 98, a large decrease from 623 on admission * Likely 2/2 coagulopathly from sepsis * 4Ts score placed patient at low risk for HIT (<5%) * However, DC heparin SC and monitor Plt count with CBC; restart chem DVT prophylaxis once plt increased FULL CODE Diet: NPO DVTP: ALPS Problem List: 1. Status post Ho's procedure 2. History of adenomatous polyp of colon 3. Diverticulosis of colon 4. Hypotension 5. Lactic acidosis 6. Perforated viscus 7. Severe sepsis Pain Ratin Tomorrow's Labs & Rationales: CBC (leukocytosis in setting of severe sepsis, anemia) ICU bundle (renal dysfunction) Plan DVT/Prophylaxis: pharmacological
--- NOTE | 2016-08-29 06:55 | PN- General Surgery ---
See Addendum Subjective Subjective: Pt remains intubated, not sedated, but lightly responsive. Still off pressors. Improving hemodynamically, but required increasing FiO2 yesterday. No bowel function as of yet. Objective Vital Signs and I&Os Vital Signs Date Time Temp Pulse Resp B/P B/P Pulse O2 O2 Flow FiO2 Mean Ox Delivery Rate 08/29 0610 55 08/29 0400 91 Ventilator 55% 08/29 0309 55 08/29 0034 55 08/29 0000 97 Ventilator 55% 08/29 0000 97.2 75 25 120/60 97 Ventilator 55% 08/28 2228 55 08/28 2000 94 Ventilator 55% 08/28 1945 55 08/28 1610 55 08/28 1600 93 Ventilator 55% 08/28 1600 97.8 81 23 114/54 93 Ventilator 55% 08/28 1420 55 08/28 1307 90 Ventilator 55% 08/28 1258 50 08/28 1200 97.3 74 20 110/68 92 Ventilator 50% 08/28 1200 90 Ventilator 50% 08/28 1120 50 08/28 0909 50 08/28 0800 96.8 78 26 110/70 92 Ventilator 50% 08/28 0800 93 Ventilator 50% Intake & Output 08/29 0800 08/29 0000 08/28 1600 08/28 0800 08/28 0000 08/27 1600 Intake Total 1129 1228 1811 1171 1139 1936 Output Total 560 490 880 245 330 410 Balance 569 738 931 185 548 6012 Intake, IV 1129 1228 1721 1171 1139 1876 Intake, Oral 0 Intake, Other 90 0 60 Number 0 0 Bowel Movements Output, 20 20 20 10 20 40 Drainage Output, 150 400 25 100 250 Gastric Drainage Output, Stool 30 10 10 50 Output, Urine 510 320 460 200 200 70 Physical Exam: Gen: Pt remains intubated. She responds to stimuli and opens her eyes. Abdomen: Soft and moderately distended. The dressing was removed and khloe are intact. Packing was inched out, trimmed, and left in place at the open inferior aspect. Minimal drainage noted on the packing. The stoma is pink and viable. There is a scant amount of air and serous fluid in the bag, but no stool. No BS appreciated. Results Last 48 Hours of Labs: Laboratory Tests 08/29 08/29 08/28 0605 0359 1030 Blood Gas pH (7.35 - 7.45 PH) 7.38 7.42 pCO2 (35 - 45 TORR) 24 L 25 L pO2 (80 - 100 TORR) 59 L 69 L HCO3 (21 - 28 MEQ/L) 14 L 16 L ABG O2 Sat (Measured) (>96.0 %) 90.0 L 93.0 L P-50 (Temp Corrected) N Carboxyhemoglobin (1.5 - 5.0 %) 0.8 L O2 Concentration % .55 50% Respiration Rate (BPM) 20 26 O2 Delivery Method VENT VENT Vent Mode A/C AC Expiratory Pressure (CMH2O/P) 8 5 Tidal Volume (CC) 500 500 Chemistry Sodium (137 - 145 mmol/L) 145 Potassium (3.5 - 5.1 mmol/L) 3.6 Chloride (98 - 107 mmol/L) 119 H Carbon Dioxide (22 - 30 mmol/L) 17 L Anion Gap (5 - 16) 10 BUN (7 - 17 mg/dL) 41 H Creatinine (0.5 - 1.0 mg/dL) 1.3 H Estimated GFR (>60 ml/min) 42 L Glucose (65 - 99 mg/dL) 123 H Calcium (8.4 - 10.2 mg/dL) 7.3 L Phosphorus (2.5 - 4.5 mg/dL) 2.8 Magnesium (1.6 - 2.3 mg/dL) 2.2 Total Bilirubin (0.2 - 1.3 mg/dL) 0.3 AST (14 - 36 U/L) 35 ALT (9 - 52 U/L) 49 Albumin (3.5 - 5.0 g/dL) 1.6 L Hematology CBC w Diff MAN DIFF ORDERED WBC (4.8 - 10.8 /CUMM) 22.4 H RBC (4.20 - 5.40 /CUMM) 2.83 L Hgb (12.0 - 16.0 G/DL) 8.9 L Hct (37 - 47 %) 27.0 L MCV (81.0 - 99.0 FL) 95.4 MCH (27.0 - 31.0 PG) 31.3 H RDW (11.5 - 14.5 %) 15.2 H Plt Count (130 - 400 /CUMM) 98 L MPV (7.4 - 10.4 FL) 9.4 Gran % (42.2 - 75.2 %) 98.0 H Lymphocytes % (20.5 - 51.1 %) 1.0 L Monocytes % (1.7 - 9.3 %) 0.9 L Eosinophils % (0 - 5 %) 0.1 Basophils % (0.0 - 2.0 %) 0 L Absolute Granulocytes (1.4 - 6.5 /CUMM) 21.9 H Segmented Neutrophils (42.2 - 75.2 %) 96 H Band Neutrophils (0.0 - 5.0 %) 1 Absolute Lymphocytes (1.2 - 3.4 /CUMM) 0.2 L Lymphocytes (20.5 - 51.1 %) 1 L Monocytes (1.7 - 9.3 %) 1 L Absolute Monocytes (0.10 - 0.60 /CUMM) 0.2 Absolute Eosinophils (0.0 - 0.7 /CUMM) 0 Absolute Basophils (0.0 - 0.2 /CUMM) 0 Metamyelocytes (0.0 - 1.0 %) 1 Platelet Estimate (ADEQUATE) DECREASED Hypochromic-Microcytic 1+ Ovalocytes FEW PUBS MCHC (33.0 - 37.0 G/DL) 32.8 L Miscellaneous Phlebotomy Draw Site [facility] Other Body Source Fld Total RBCs Counted (%) 100 08/28 08/28 7044 0417 Chemistry Sodium (137 - 145 mmol/L) 141 Potassium (3.5 - 5.1 mmol/L) 3.7 Chloride (98 - 107 mmol/L) 115 H Carbon Dioxide (22 - 30 mmol/L) 15 L Anion Gap (5 - 16) 11 BUN (7 - 17 mg/dL) 50 H Creatinine (0.5 - 1.0 mg/dL) 1.6 H Estimated GFR (>60 ml/min) 33 L Glucose (65 - 99 mg/dL) 72 Calcium (8.4 - 10.2 mg/dL) 6.9 L Phosphorus (2.5 - 4.5 mg/dL) 4.3 Magnesium (1.6 - 2.3 mg/dL) 2.4 H Total Bilirubin (0.2 - 1.3 mg/dL) 0.4 AST (14 - 36 U/L) 62 H ALT (9 - 52 U/L) 53 H Creatine Kinase (30 - 135 U/L) 402 H Albumin (3.5 - 5.0 g/dL) 1.7 L Coagulation PT (9.4 - 12.5 SEC) 12.2 INR (0.90 - 1.19) 1.16 Hematology CBC w Diff MAN DIFF ORDERED WBC (4.8 - 10.8 /CUMM) 24.8 H RBC (4.20 - 5.40 /CUMM) 2.86 L Hgb (12.0 - 16.0 G/DL) 9.2 L Hct (37 - 47 %) 27.3 L MCV (81.0 - 99.0 FL) 95.4 MCH (27.0 - 31.0 PG) 32.2 H RDW (11.5 - 14.5 %) 14.6 H Plt Count (130 - 400 /CUMM) 104 L MPV (7.4 - 10.4 FL) 9.2 Gran % (42.2 - 75.2 %) 97.0 H Lymphocytes % (20.5 - 51.1 %) 2.4 L Monocytes % (1.7 - 9.3 %) 0.6 L Eosinophils % (0 - 5 %) 0 Basophils % (0.0 - 2.0 %) 0 L Absolute Granulocytes (1.4 - 6.5 /CUMM) 24.1 H Segmented Neutrophils (42.2 - 75.2 %) 81 H Band Neutrophils (0.0 - 5.0 %) 12 H Absolute Lymphocytes (1.2 - 3.4 /CUMM) 0.6 L Lymphocytes (20.5 - 51.1 %) 5 L Monocytes (1.7 - 9.3 %) 2 Absolute Monocytes (0.10 - 0.60 /CUMM) 0.1 L Absolute Eosinophils (0.0 - 0.7 /CUMM) 0 Absolute Basophils (0.0 - 0.2 /CUMM) 0 Platelet Estimate (ADEQUATE) DECREASED Anisocytosis 1+ PUBS MCHC (33.0 - 37.0 G/DL) 33.8 Assessment/Plan Assessment/Plan Pt is a 60 yo F with a hx of COPD, smoking, and anxiety/depression who now POD # 2 s/p Ex lap with Ho's procedure for perforated sigmoid colon with abscess formation and gross purulent peritonitis. Plan: -Continue IV antibiotics with Rocephin and flagyl for purulent peritonitis. Follow-up final blood and our fluid cultures and sensitivities. -Continue IV hydration. Consider removal of a line. -Continue NPO until extubated and improved bowel function. NGT to low wall suction. -Subcutaneous heparin is being held due to thrombocytopenia. -Protonix for GI ppx. -Keep hope for critical I/O's. -Monitor labs. Replete electrolytes as needed. -Ostomy care. -Dressing was changed today. packing was inched out slightly. -TRCs. -Medical management per ICU team.
[2016-08-29 08:00] VITALS: BP 114/70
--- NOTE | 2016-08-29 08:42 | RADIOLOGY REPORT ---
EXAMINATION: XR PORTABLE CHEST CLINICAL INFORMATION: Respiratory failure. COMPARISON: Chest radiograph done on 08/28/2006. TECHNIQUE: Portable frontal view of the chest was obtained. FINDINGS: The tip of the endotracheal tube is located approximately 4.8 cm above the level of the evelio. The right-sided central line is projecting in the region of the cavoatrial junction. The enteric tube is infradiaphragmatic however not included within the [id number]. Both lung bases shows nonspecific airspace opacities and mild blunting of both lateral CP angles, consistent with hypoventilatory, atelectatic changes, infiltrate, combination thereof and possible bilateral trace pleural effusions. The remainder of the lung rosenbaum appear clear. Overall, no significant change except for mild apparent increase in nonspecific bibasilar airspace disease. IMPRESSION: Except for mild apparent increase in bibasilar nonspecific airspace disease, no other significant interval change is present since 08/28/2016.
--- NOTE | 2016-08-29 11:05 | PN- CRCU ---
Subjective HPI/Critical Care Issues: remains intubated awake no obvious pain overbreathing the vent some breath stacking is noted otherwise stable Objective Current Medications: Current Medications Sig/Ry Start time Last Medication Dose Route Stop Time Status Admin Acetaminophen 1,000 MG Q6P PRN 08/27 0230 AC 08/27 N/A 1 UNIT IV 0236 Albuterol Sulfate 3 ML BID 08/28 2200 AC 08/29 INH 1016 Albuterol Sulfate 3 ML Q4H PRN 08/27 1000 AC 08/28 INH 1309 Ceftriaxone Sodium 1,000 MG 2100 08/26 2200 AC 08/28 IV 2103 Chlorhexidine 15 ML TID 08/29 1000 AC Gluconate PO Dextrose/Sodium 1,000 ML Q13H 08/28 0815 AC 08/28 Chloride IV 08/29 2333 2253 Lorazepam 2 MG ONE ONE 08/29 1015 DC IV 08/29 1016 Lorazepam 0.5 MG Q6P PRN 08/26 2200 AC 08/29 IV 0519 Metronidazole 500 MG Q8H 08/26 220 AC 08/29 N/A 1 UNIT IV 0514 Morphine Sulfate 2 MG Q2P PRN 08/26 2199 AC 08/29 IV 0857 Pantoprazole Sodium 40 MG DAILY 08/27 1000 AC 08/28 IV 0930 Potassium Chloride 20 MEQ Q1H 08/29 0700 DC 08/29 IV 08/29 0801 0849 Vital Signs & I&O Last 24 Hrs of Vitals and I&O: Vital Signs Date Time Temp Pulse Resp B/P B/P Pulse O2 O2 Flow FiO2 Mean Ox Delivery Rate 08/29 1010 60 08/29 0800 88 Ventilator 65% 08/29 0800 99.4 100 26 114/70 88 Ventilator 65% 08/29 0755 65 08/29 0610 55 08/29 0400 91 Ventilator 55% 08/29 0309 55 08/29 0034 55 08/29 0000 97 Ventilator 55% 08/29 0000 97.2 75 25 120/60 97 Ventilator 55% 08/28 2228 55 08/28 2000 94 Ventilator 55% 08/28 1945 55 08/28 1610 55 08/28 1600 93 Ventilator 55% 08/28 1600 97.8 81 23 114/54 93 Ventilator 55% 08/28 1420 55 08/28 1307 90 Ventilator 55% 08/28 1258 50 08/28 1200 97.3 74 20 110/68 92 Ventilator 50% 08/28 1200 90 Ventilator 50% 08/28 1120 50 Intake & Output 08/29 1600 08/29 0800 08/29 0000 Intake Total 1129 1228 Output Total 560 490 Balance 569 738 Intake, IV 1129 1228 Output, 20 20 Drainage Output, 150 Gastric Drainage Output, Stool 30 Output, Urine 510 320 Exam Other Physical Findings: gen awake heent intubated cvs s1, s2 lungs transmitted abd soft, dressing intact ext no edema Results Last 24 Hrs of Lab Results: Laboratory Tests 08/29/16 06: pH 7.38, pCO2 24 L, pO2 59 L, HCO3 14 L, ABG O2 Sat (Measured) 90.0 L, P-50 (Temp Corrected) N, Carboxyhemoglobin 0.8 L, O2 Concentration % .55, Respiration Rate 20, O2 Delivery Method VENT, Vent Mode A/C, Expiratory Pressure 8, Tidal Volume 500, Phlebotomy Draw Site [place] 08/29/16 0359: Anion Gap 10, Estimated GFR 42 L, Glucose 123 H, Calcium 7.3 L, Phosphorus 2.8, Magnesium 2.2, Total Bilirubin 0.3, AST 35, ALT 49, Albumin 1.6 L, CBC w Diff MAN DIFF ORDERED, RBC 2.83 L, MCV 95.4, MCH 31.3 H, RDW 15.2 H, MPV 9.4, Gran % 98.0 H, Lymphocytes % 1.0 L, Monocytes % 0.9 L, Eosinophils % 0.1, Basophils % 0 L, Absolute Granulocytes 21.9 H, Segmented Neutrophils 96 H, Band Neutrophils 1, Absolute Lymphocytes 0.2 L, Lymphocytes 1 L, Monocytes 1 L, Absolute Monocytes 0.2, Absolute Eosinophils 0, Absolute Basophils 0, Metamyelocytes 1, Platelet Estimate DECREASED, Hypochromic-Microcytic 1+, Ovalocytes FEW, PUBS MCHC 32.8 L, Fld Total RBCs Counted 100 Impression/Plan Impression/Plan Impression/Plan: Impression 60 year old woman * Resolved septic shock - pericolic abscess s/p drainage and sigmoid colectomy with end colostomyvere sepsis - origin maybe urinary source, abdominal pathology and aspiration pneumonia * SIERRA most likely secondary to prerenal causes - improving * new thrombocytopenia, likely coagulopathy due to sepsis, however will hold heparin products at this time, when recovers can resume chemical prophylaxis Plan Respiratory -TRC/Nebs -aspiration precautions -reduce fio2 as tolerated, no cpap trial until at least 40%fio2 ID -afebrile 24 hrs, leukocytosis persists but stable -continue abx -e.coli in trun cx, gnr in sputum -ID consultation follow up CVS -monitor hemodynamics -monitor cvp Heme -monitor cbc, coags -new thrombocytopenia, likely coagulopathy due to sepsis, however will hold heparin products at this time, when recovers can resume chemical prophylaxis Metabolic -SIERRA, prerenal most likely cause -d51/2ns due to hypoglycemia Alimentary -aspiration precautions -f/u surgery for nutrition, currently NPO Neuro -not requiring sedation, morphine and ativan pushes -psych appreciated -psych follow up when extubated DVT prophylaxis at all times - new thrombocytopenia, likely coagulopathy due to sepsis, however will hold heparin products at this time, when recovers can resume chemical prophylaxis TTS 35 min
--- NOTE | 2016-08-29 12:58 | PN- Infect Dx ---
Subjective Subjective: Afebrile. Her blood pressure remains stable off pressors. Objective Last 24 Hrs of Vital Signs/I&O Vital Signs Date Time Temp Pulse Resp B/P B/P Pulse O2 O2 Flow FiO2 Mean Ox Delivery Rate 08/29 1010 60 08/29 0800 88 Ventilator 65% 08/29 0800 99.4 100 26 114/70 88 Ventilator 65% 08/29 0755 65 08/29 0610 55 08/29 0400 91 Ventilator 55% 08/29 0309 55 08/29 0034 55 08/29 0000 97 Ventilator 55% 08/29 0000 97.2 75 25 120/60 97 Ventilator 55% 08/28 2228 55 08/28 2000 94 Ventilator 55% 08/28 1945 55 08/28 1610 55 08/28 1600 93 Ventilator 55% 08/28 1600 97.8 81 23 114/54 93 Ventilator 55% 08/28 1420 55 08/28 1307 90 Ventilator 55% 08/28 1258 50 Intake & Output 08/29 1600 08/29 0800 08/29 0000 Intake Total 1129 1228 Output Total 560 490 Balance 569 738 Intake, IV 1129 1228 Output, 20 20 Drainage Output, 150 Gastric Drainage Output, Stool 30 Output, Urine 510 320 Physical Exam Other Physical Findings: She is arousable on the ventilator Neck right IJ triple lumen catheter with no inflammation at the site Lungs bilateral rhonchi Heart regular rhythm with no murmur Abdomen is soft, with slightly bloody fluid in the colostomy Extremities 1+ edema all extremities Fulton catheter in place Results Last 24 Hours of Lab Results: Laboratory Tests 08/29 08/29 0605 0359 Blood Gas pH (7.35 - 7.45 PH) 7.38 pCO2 (35 - 45 TORR) 24 L pO2 (80 - 100 TORR) 59 L HCO3 (21 - 28 MEQ/L) 14 L ABG O2 Sat (Measured) (>96.0 %) 90.0 L P-50 (Temp Corrected) N Carboxyhemoglobin (1.5 - 5.0 %) 0.8 L O2 Concentration % .55 Respiration Rate (BPM) 20 O2 Delivery Method VENT Vent Mode A/C Expiratory Pressure (CMH2O/P) 8 Tidal Volume (CC) 500 Chemistry Sodium (137 - 145 mmol/L) 145 Potassium (3.5 - 5.1 mmol/L) 3.6 Chloride (98 - 107 mmol/L) 119 H Carbon Dioxide (22 - 30 mmol/L) 17 L Anion Gap (5 - 16) 10 BUN (7 - 17 mg/dL) 41 H Creatinine (0.5 - 1.0 mg/dL) 1.3 H Estimated GFR (>60 ml/min) 42 L Glucose (65 - 99 mg/dL) 123 H Calcium (8.4 - 10.2 mg/dL) 7.3 L Phosphorus (2.5 - 4.5 mg/dL) 2.8 Magnesium (1.6 - 2.3 mg/dL) 2.2 Total Bilirubin (0.2 - 1.3 mg/dL) 0.3 AST (14 - 36 U/L) 35 ALT (9 - 52 U/L) 49 Albumin (3.5 - 5.0 g/dL) 1.6 L Hematology CBC w Diff MAN DIFF ORDERED WBC (4.8 - 10.8 /CUMM) 22.4 H RBC (4.20 - 5.40 /CUMM) 2.83 L Hgb (12.0 - 16.0 G/DL) 8.9 L Hct (37 - 47 %) 27.0 L MCV (81.0 - 99.0 FL) 95.4 MCH (27.0 - 31.0 PG) 31.3 H RDW (11.5 - 14.5 %) 15.2 H Plt Count (130 - 400 /CUMM) 98 L MPV (7.4 - 10.4 FL) 9.4 Gran % (42.2 - 75.2 %) 98.0 H Lymphocytes % (20.5 - 51.1 %) 1.0 L Monocytes % (1.7 - 9.3 %) 0.9 L Eosinophils % (0 - 5 %) 0.1 Basophils % (0.0 - 2.0 %) 0 L Absolute Granulocytes (1.4 - 6.5 /CUMM) 21.9 H Segmented Neutrophils (42.2 - 75.2 %) 96 H Band Neutrophils (0.0 - 5.0 %) 1 Absolute Lymphocytes (1.2 - 3.4 /CUMM) 0.2 L Lymphocytes (20.5 - 51.1 %) 1 L Monocytes (1.7 - 9.3 %) 1 L Absolute Monocytes (0.10 - 0.60 /CUMM) 0.2 Absolute Eosinophils (0.0 - 0.7 /CUMM) 0 Absolute Basophils (0.0 - 0.2 /CUMM) 0 Metamyelocytes (0.0 - 1.0 %) 1 Platelet Estimate (ADEQUATE) DECREASED Hypochromic-Microcytic 1+ Ovalocytes FEW PUBS MCHC (33.0 - 37.0 G/DL) 32.8 L Miscellaneous Phlebotomy Draw Site [facility] Other Body Source Fld Total RBCs Counted (%) 100 Last 24 Hours of [place] Results: OR culture August 26 labeled peritoneal fluid positive for alpha strep, Escherichia coli resistant to Ampicillin and intermediate to Unasyn, beta-hemolytic strep and yeast Sputum culture August 26 positive for Pseudomonas sensitive to all antibiotics tested and yeast Blood culture August 25 positive for a gram-positive carlos which is being reevaluated Stool for C. difficile August 27 negative Recent Imaging Studies: Chest x-ray August 29 slight increased bibasilar densities Assessment/Plan Impression: Remains critically ill now 3 days status post Granger's procedure for a perforated sigmoid colon with abscess formation and with gross purulent peritonitis noted. She has been afebrile though white blood cell count remains elevated on Ceftriaxone and Flagyl, with OR cultures growing multiple organisms including yeast which, though of unclear significance, can be treated. The significance of the positive sputum culture for Pseudomonas is unclear, with chest x-ray suggesting only atelectasis, with slight increased markings and increasing oxygen requirements possibly secondary to fluid overload; nevertheless it may be reasonable to cover this organism as well. The positive blood culture for gram-positive rods was initially identified as clostridium but is being reevaluated. Suggestion: 1. Follow-up final blood and OR cultures 2. Discontinue Ceftriaxone and Flagyl 3. Begin Zosyn 4.5 g IV every 6 hours 4. Begin Fluconazole 800 mg IV loading, followed by 400 g IV every 48 hours
--- NOTE | 2016-08-29 13:59 | NUR ---
PT REMAINS INTUBATED , HER O2 SATS ARE 88-91. SUCTIONED FOR LARGE AMOUNTS OF THIN WHITE SECRETIONS. SHE DOES OPEN EYES TO COMMAND AND WEAKLY HAS HAND GRASPS. MOVES ALL EXTREMITIES. MEDICATED WITH IV MORPHINE AND ATIVAN TWICE WITH RELIEF OF PAIN (GRIMACING) AND ANXIETY HIGH RR AND RESTESS (MOVEMENTS). COLOSTOMY OUTPUT REMAINS SEROUS. J/P OUPTUT IS MINIMAL, BOWEL SOUNDS REMAIN ABSENT.
[2016-08-29 16:00] VITALS: BP 110/41
[2016-08-30] VITALS: BP 120/70
[2016-08-30 04:14] LABS: ABSOLUTE BASOPHIL COUNT 0 /CUMM (0.0-0.2); ABSOLUTE EOSINOPHIL COUNT 0 /CUMM (0.0-0.7); ABSOLUTE GRANULOCYTE CT 21.7 /CUMM (1.4-6.5); ABSOLUTE LYMPH COUNT 0.6 /CUMM (1.2-3.4); ABSOLUTE MONOCYTE COUNT 0 /CUMM (0.10-0.60); BASOPHIL % 0 % (0.0-2.0); EOSINOPHIL % 0.1 % (0-5); GRANULOCYTE % 97.2 % (42.2-75.2); HEMATOCRIT 23.5 % (37-47); MEAN CORPUSCULAR HGB 31.4 PG (27.0-31.0); MEAN CORPUSCULAR HGB CONC 33.2 G/DL (33.0-37.0); MEAN CORPUSCULAR VOLUME 94.5 FL (81.0-99.0); MEAN PLATELET VOLUME 9.2 FL (7.4-10.4); PLATELET COUNT 89 /CUMM (130-400); RBC DISTRIBUTION WIDTH 15.3 % (11.5-14.5); RED BLOOD CELL CT 2.48 /CUMM (4.20-5.40); WHITE BLOOD CELL COUNT 22.4 /CUMM (4.8-10.8)
--- NOTE | 2016-08-30 05:54 | PN- General Surgery ---
Subjective Subjective: REMAINS INTUBATED AND SEDATED SLOWLY RESPONDS TO NAME AND SOME COMMANDS NO PRESSORS AT THIS TIME HEMODYNAMICALLY STABLE Objective Vital Signs and I&Os Vital Signs Date Time Temp Pulse Resp B/P B/P Pulse O2 O2 Flow FiO2 Mean Ox Delivery Rate 08/30 0400 94 Ventilator 60% 08/30 0350 60 08/30 0212 60 08/30 0000 100.1 92 26 120/70 92 Ventilator 60% 08/30 0000 92 Ventilator 60% 08/29 2250 60 08/29 2025 60 08/29 2000 93 Ventilator 60% 08/29 1804 Ventilator 60% 08/29 1640 60 08/29 1600 90 Ventilator 60% 08/29 1600 98.3 100 26 110/41 92 Ventilator 60% 08/29 1316 60 08/29 1200 89 Ventilator 60% 08/29 1010 60 08/29 0800 88 Ventilator 65% 08/29 0800 99.4 100 26 114/70 88 Ventilator 65% 08/29 0755 65 08/29 0610 55 Intake & Output 08/30 0800 08/30 0000 08/29 1600 08/29 0800 08/29 0000 08/28 1600 Intake Total 1666 1200 1129 1228 1811 Output Total 750 440 560 490 880 Balance 916 760 569 738 931 Intake, IV 1666 1200 1129 1228 1721 Intake, Other 90 Number 0 Bowel Movements Output, 0 20 20 20 20 Drainage Output, 200 150 400 Gastric Drainage Output, Stool 50 30 Output, Urine 550 370 510 320 460 Physical Exam: CV: RRR LUNGS: GOOD AIR MOVEMET NEVAEH ALL LUNG DIEZ ABD: SOFT MIDLINE INCISION INTACT, INFERIOR PORTION OPENED WITH IODOFORM PACKING WHICH WAS INCHED OUT, STOMA IS DARK RED BUT VIABLE, DARK LIQUID IN OSTOMY, NO PAULA EXT: WARM, GROSS MOTOR MOVEMENT PULSES INTACT TOBAR: CLEAR URINE MANDY: SMALL AMOUNT OF SEROSANGUINOUS FLUID OVERNIGHT NGT: SMALL DARK OUT PUT OVERNIGHT Assessment/Plan Assessment/Plan SURGICALLY IMPROVING PLAN AWAIT IMPROVED BOWEL FXN ?TPN CONT ABD: PER ID DVT PROPHYLAXIS
--- NOTE | 2016-08-30 06:59 | PN- Resident CRCU ---
Subjective HPI/CRCU Issues: Patient seen and examined at bedside this AM. She remains intubated and lethargic with continued fever (Tmax 100.6) and leukocytosis. Evaluation by Dr. Armendariz, surgeon today suggested TPN until bowel function has improved. Discussed with surgery regarding use of OGT. They are OK with using OGT for meds. 24 Hour Events: Vital signs last 24 hours: T 98.3-100.6, HR 84-104, RR 20-36, BP 102-136/40-96, O2 saturation 88-95% on AC ventilation RR 20 TV 450, FiO2 60%, 5 PEEP. Total input last 24 hours: 4381 cc Total output lat 24 hours: 1805 cc Objective Vital Signs & I&O Last 8 Hrs of Vitals and I&O: T 98.3-100.6, HR 84-104, RR 20-36, BP 102-136/40-96, O2 saturation 88-95% on AC ventilation RR 20 TV 450, FiO2 60%, 5 PEEP. Exam General Appearance: no apparent distress, intubated Head: atraumatic, normal appearance Ears, Nose, Throat: normal pharynx, moist mucus membranes Neck: normal inspection, supple Respiratory: normal breath sounds, chest non-tender, Decreased breath sounds bilateral bases Cardiovascular: regular rate/rhythm Gastrointestinal: soft, non-tender, Hypoactive bowel sounds, stoma pink and viable Extremities: normal inspection Cranial Nerves: normal hearing Skin: normal color, warm/dry Nutrition Nutrition: NPO Current Medications: Current Medications Sig/Ry Start time Last Medication Dose Route Stop Time Status Admin Acetaminophen 1,000 MG Q6P PRN 08/27 0230 AC 08/27 N/A 1 UNIT IV 0236 Albuterol Sulfate 3 ML BID 08/28 220 AC 08/30 INH 0902 Albuterol Sulfate 3 ML Q4H PRN 08/27 1000 AC 08/28 INH 1309 Ceftriaxone Sodium 1,000 MG 2100 08/26 220 DC 08/28 IV 2103 Chlorhexidine 15 ML TID 08/29 1000 AC 08/30 Gluconate PO 0822 Dextrose/Sodium 1,000 ML Q13H 08/30 0445 AC 08/30 Chloride IV 0452 Dextrose/Sodium 1,000 ML Q13H 08/28 0815 DC 08/29 Chloride IV 08/29 2333 1309 Fluconazole 400 MG Q48 08/31 1000 DC Sodium Chloride 200 ML IV Fluconazole 400 MG Q24 08/30 1045 AC Sodium Chloride 200 ML IV Fluconazole 400 MG Q2H 08/29 1345 DC 08/29 Sodium Chloride 200 ML IV 08/29 1744 1658 Lorazepam 0.5 MG Q6P PRN 08/26 2200 AC 08/30 IV 0505 Magnesium Sulfate 1 GM ONCE ONE 08/30 0700 DC 08/30 Dextrose/Water 100 ML IV 08/30 1059 0823 Metronidazole 500 MG Q8H 08/26 2200 HI 08/29 N/A 1 UNIT IV 1318 Morphine Sulfate 2 MG Q2P PRN 08/26 220 AC 08/30 IV 0555 Non-Formulary 0 SEE ADMIN CRITERIA 08/29 1345 CAN Medication ANY Pantoprazole Sodium 40 MG DAILY 08/27 1000 AC 08/30 IV 0823 Piperacillin Sod/ 4.5 GM Q6H 08/29 1400 AC 08/30 Tazobactam Sod IV 0822 Sodium Chloride 100 ML Potassium Chloride 20 MEQ Q1H 08/30 0445 HI 08/30 IV 08/30 0546 0553 Sodium Chloride 500 ML BOLUS ONE 08/295 DC 08/29 IV 08/29 CXR Findings: IMPRESSION: Except for mild apparent increase in bibasilar nonspecific airspace disease, no other significant interval change is present since 08/28/2016. Impression/Plan Impression/Problem List Impression: Ms. Camacho is a 60 year old female with PMH anxiety, depression, COPD , prior episode of severe clostridium difficile infection in 2016, tobacco abuse and gastritis who presented to the [facility] after one week of altered mental status, decreased oral intake and possible withdrawl symptoms as her clonazepam was being titrated off per doctor instructions. She was found to be hypotensive, febrile and altered while in the [facility] ED. In the ED: Vital signs showed Tmax 101.5, HR 116, RR 20, BP 93/62 and O2 saturation 90% on room air. Labs were significant for WBC 18.1 with 37 bands, H&H 13.7/41.6, Plt 623, Na 143 , K 3.6, Cl 107, HCO3 16, BUN/cre 28/1.8, Glu 98, Lactic acid 2.9, AST 62, ALT 42, CK 370, troponin 0.05, proBNP 92461, amylase 153, lipase <10, and UA with high protein, positive nitrite, high urobilinogen, 50 WBCs, moderate bacteria and large hgb. CXR showed no acute pulmonary process. Head CT was negative for acute pathology. Patient was admitted to the ICU and the following is the current management: 1. Severe sepsis secondary to peritonitis from perforated sigmoid colon with abscess formation * Patient febrile, + leukocytosis with bandemia, hypotensive and tachycardic on admission * Post-op day #4 from Harmann's procedure with Dr. Marcello MD; patient remains intubated off pressors or sedation, ostomy pink and viable * ID consult appreciated, continue to follow recommendations * Continue IV Zosyn and increase IV fluconazole to 400 g IV Q24 hours * Continue D51/2NS at 150 cc/h * Cdiff NEGATIVE- taken off of isolation * Repeat blood cultures x 2, urine culture and sputum culture today * Repeat CT abdomen/pelvis if no improvement in the next few days * Surgery follow up appreciated, continue NGT, TPN eval pending * Surgery reports meds can be given via OGT as patient will likely benefit from home psych meds * IV protonix while intubated * Remove drain today 2. Metabolic encephalopathy, IMPROVING * On admission, likely secondary to severe sepsis from sigmoid perforation/ peritonitis * CT head negative for acute intracranial pathology * Hold all sedatives, will discuss with psych about restarting home meds to give via OGT * Keep patient NPO for now, evaluation for TPN today 3. Acute hypoxemic respiratory failure * Patient initially placed on non-rebreather but was transitioned to high flow nasal cannula/ BiPAP due to tachypnea/apparent respiratory distress * Patient tolerated BiPAP well but was intubated for Ho's procedure; FiO2 requirements slightly increasing with CXR sowing increase in biabilsar nonspecific airpsace disease * Aspiration precautions * No CPAP trial until FiO2 at least 40% 4. SIERRA * Likely prerenal in the setting of severe sepsis * Improving, continue IVF hydration * Monitor renal function and electrolytes with ICU bundle * Monitor urine output, strict Is/Os 5. Sinus tachycardia with T wave changes, IMPROVING * Continuous telemetry monitoring * Troponins negative x 3 * Echo shows normal global LV function without wall motion abnormalities and normal pulm artery systolic pressure * Monitor vital signs closely 6. Thrombocytopenia * Plt this AM 89, a large decrease from 623 on admission * Likely 2/2 coagulopathly from sepsis * 4Ts score placed patient at low risk for HIT (<5%) * However, DC'd heparin SC and monitor Plt count with CBC; restart chem DVT prophylaxis once plt increased FULL CODE Diet: NPO with TPN eval pending DVTP: ALPS Problem List: 1. Status post Ho's procedure 2. History of adenomatous polyp of colon 3. Malnutrition 4. Lactic acidosis 5. Hypotension 6. Perforated viscus 7. Sepsis Pain Ratin Tomorrow's Labs & Rationales: CBC (leukocytosis) ICU bundle (hypokalemia) Plan DVT/Prophylaxis: pharmacological
[2016-08-30 08:00] VITALS: BP 104/80
--- NOTE | 2016-08-30 09:32 | PN- Infect Dx ---
Subjective Subjective: MAXIMUM TEMPERATURE 100.1. Objective Last 24 Hrs of Vital Signs/I&O Vital Signs Date Time Temp Pulse Resp B/P B/P Pulse O2 O2 Flow FiO2 Mean Ox Delivery Rate 08/30 0859 60 08/30 0800 94 Ventilator 60% 08/30 0800 98.2 94 26 104/80 94 Ventilator 60% 08/30 0559 60 08/30 0400 94 Ventilator 60% 08/30 0350 60 08/30 0212 60 08/30 0000 100.1 92 26 120/70 92 Ventilator 60% 08/30 0000 92 Ventilator 60% 08/29 2250 60 08/29 2025 60 08/29 2000 93 Ventilator 60% 08/29 1804 Ventilator 60% 08/29 1640 60 08/29 1600 90 Ventilator 60% 08/29 1600 98.3 100 26 110/41 92 Ventilator 60% 08/29 1316 60 08/29 1200 89 Ventilator 60% 08/29 1010 60 Intake & Output 08/30 1600 08/30 0800 08/30 0000 Intake Total 1515 1666 Output Total 615 750 Balance 900 916 Intake, IV 1515 1666 Intake, Oral 0 Number 0 Bowel Movements Output, 15 0 Drainage Output, 50 200 Gastric Drainage Output, Stool 0 Output, Urine 550 550 Physical Exam Other Physical Findings: She is awake and responsive to commands on the ventilator Neck right IJ triple-lumen catheter with no inflammation at the site Lungs are clear Heart regular rhythm with no murmur Abdomen is soft, with no obvious tenderness, with liquid output from the colostomy Extremities trace edema both lower extremities Fulton catheter remains in place Results Last 24 Hours of Lab Results: Laboratory Tests 08/30 035 Chemistry Sodium (137 - 145 mmol/L) 143 Potassium (3.5 - 5.1 mmol/L) 3.4 L Chloride (98 - 107 mmol/L) 119 H Carbon Dioxide (22 - 30 mmol/L) 16 L Anion Gap (5 - 16) 8 BUN (7 - 17 mg/dL) 24 H Creatinine (0.5 - 1.0 mg/dL) 0.9 Estimated GFR (>60 ml/min) > 60 Glucose (65 - 99 mg/dL) 89 Calcium (8.4 - 10.2 mg/dL) 7.0 L Phosphorus (2.5 - 4.5 mg/dL) 2.3 L Magnesium (1.6 - 2.3 mg/dL) 1.9 Total Bilirubin (0.2 - 1.3 mg/dL) 0.4 AST (14 - 36 U/L) 22 ALT (9 - 52 U/L) 46 Albumin (3.5 - 5.0 g/dL) 1.4 L Hematology CBC w Diff MAN DIFF ORDERED WBC (4.8 - 10.8 /CUMM) 22.4 H RBC (4.20 - 5.40 /CUMM) 2.48 L Hgb (12.0 - 16.0 G/DL) 7.8 L Hct (37 - 47 %) 23.5 L MCV (81.0 - 99.0 FL) 94.5 MCH (27.0 - 31.0 PG) 31.4 H RDW (11.5 - 14.5 %) 15.3 H Plt Count (130 - 400 /CUMM) 89 L MPV (7.4 - 10.4 FL) 9.2 Gran % (42.2 - 75.2 %) 97.2 H Lymphocytes % (20.5 - 51.1 %) 2.6 L Monocytes % (1.7 - 9.3 %) 0.1 L Eosinophils % (0 - 5 %) 0.1 Basophils % (0.0 - 2.0 %) 0 L Absolute Granulocytes (1.4 - 6.5 /CUMM) 21.7 H Segmented Neutrophils (42.2 - 75.2 %) 90 H Band Neutrophils (0.0 - 5.0 %) 5 Absolute Lymphocytes (1.2 - 3.4 /CUMM) 0.6 L Lymphocytes (20.5 - 51.1 %) 3 L Monocytes (1.7 - 9.3 %) 1 L Absolute Monocytes (0.10 - 0.60 /CUMM) 0 L Absolute Eosinophils (0.0 - 0.7 /CUMM) 0 Absolute Basophils (0.0 - 0.2 /CUMM) 0 Metamyelocytes (0.0 - 1.0 %) 1 Platelet Estimate (ADEQUATE) DECREASED Polychromasia 1+ Hypochromic-Microcytic 1+ PUBS MCHC (33.0 - 37.0 G/DL) 33.2 Last 24 Hours of [place] Results: OR culture August 26 of peritoneal fluid positive for alpha strep, beta strep non groupable, Escherichia coli and yeast with ID pending Blood culture June 25 positive for gram-positive carlos, ID pending Assessment/Plan Impression: Overall improved now 4 days status post Granger's procedure for a perforated sigmoid colon with abscess formation and with gross purulent peritonitis noted, with no pressor requirement, but with low-grade fever overnight and with persistent leukocytosis now on Zosyn and Fluconazole for a polymicrobial peritonitis and possible pneumonia secondary to Pseudomonas. The positive blood culture for gram-positive rods was initially identified as clostridium but is being reevaluated. She is at risk for nosocomial infections, such as line sepsis and a urinary tract infection, but also need to consider the possibility of a residual intra-abdominal infection and, if her white blood cell count remains elevated, repeat imaging, for example with a CT of the abdomen and pelvis, must be considered. Suggestion: 1. Follow-up final blood and OR cultures 2. Repeat blood cultures 2, urine culture and sputum culture 3. Consider CT of the abdomen and pelvis if white blood cell count remains elevated 4. Would pursue placement of a PICC so that the right IJ can be removed 5. Increase Fluconazole to 400 g IV every 24 hours 6. Continue Zosyn
--- NOTE | 2016-08-30 10:57 | PN- General Surgery ---
Surgical Brief Attending Note Brief Attending Note: stable, minimal improvement. Drain is not of value now. it can be removed. Would hold on CT as it is too soon in the postoperative period and will not supervisor records change. Suspect WBC to improve since abx regimen changed according to sensitivities yesterday. It may take a few days. She had severe, subacute peritonitis and will take more than usual time to resolved. Recommend TPN.
--- NOTE | 2016-08-30 11:30 | PN- CRCU ---
Subjective HPI/Critical Care Issues: pt seen and examined npo recommended by surgery minimally responsive mechanically ventilated ros unobtainable Objective Current Medications: Current Medications Sig/Ry Start time Last Medication Dose Route Stop Time Status Admin Acetaminophen 1,000 MG Q6P PRN 08/27 0230 AC 08/27 N/A 1 UNIT IV 0236 Albuterol Sulfate 3 ML BID 08/28 2200 AC 08/30 INH 0902 Albuterol Sulfate 3 ML Q4H PRN 08/27 1000 AC 08/28 INH 1309 Ceftriaxone Sodium 1,000 MG 2100 08/26 2200 DC 08/28 IV 2103 Chlorhexidine 15 ML TID 08/29 1000 AC 08/30 Gluconate PO 0822 Dextrose/Sodium 1,000 ML Q13H 08/30 0445 08/30 Chloride IV 0452 Dextrose/Sodium 1,000 ML Q13H 08/28 0815 DC 08/29 Chloride IV 08/29 2333 1309 Fluconazole 400 MG Q48 08/31 1000 DC Sodium Chloride 200 ML IV Fluconazole 400 MG Q24 08/30 1045 AC Sodium Chloride 200 ML IV Fluconazole 400 MG Q2H 08/29 1345 DC 08/29 Sodium Chloride 200 ML IV 08/29 1744 1658 Lorazepam 0.5 MG Q6P PRN 08/26 2199 AC 08/30 IV 0505 Magnesium Sulfate 1 GM ONCE ONE 08/30 0700 DC 08/30 Dextrose/Water 100 ML IV 08/30 1059 0823 Metronidazole 500 MG Q8H 08/26 2199 DC 08/29 N/A 1 UNIT IV 1318 Morphine Sulfate 2 MG Q2P PRN 08/26 2199 08/30 IV 0555 Non-Formulary 0 SEE ADMIN CRITERIA 08/29 1345 CAN Medication ANY Pantoprazole Sodium 40 MG DAILY 08/27 1000 AC 08/30 IV 0823 Piperacillin Sod/ 4.5 GM Q6H 08/29 1400 AC 08/30 Tazobactam Sod IV 0822 Sodium Chloride 100 ML Potassium Chloride 20 MEQ Q1H 08/30 0445 DC 08/30 IV 08/30 0546 0553 Sodium Chloride 500 ML BOLUS ONE 08/29 2045 DC 08/29 IV 08/29 2144 2054 Vital Signs & I&O Last 24 Hrs of Vitals and I&O: Vital Signs Date Time Temp Pulse Resp B/P B/P Pulse O2 O2 Flow FiO2 Mean Ox Delivery Rate 08/30 0859 60 08/30 0800 94 Ventilator 60% 08/30 0800 98.2 94 26 104/80 94 Ventilator 60% 08/30 0559 60 08/30 0400 94 Ventilator 60% 08/30 0350 60 08/30 0212 60 08/30 0000 100.1 92 26 120/70 92 Ventilator 60% 08/30 0000 92 Ventilator 60% 08/29 2250 60 08/29 2025 60 08/29 2000 93 Ventilator 60% 08/29 1804 Ventilator 60% 08/29 1640 60 08/29 1600 90 Ventilator 60% 08/29 1600 98.3 100 26 110/41 92 Ventilator 60% 08/29 1316 60 08/29 1200 89 Ventilator 60% Intake & Output 08/30 1600 08/30 0800 08/30 0000 Intake Total 1515 1666 Output Total 615 750 Balance 900 916 Intake, IV 1515 1666 Intake, Oral 0 Number 0 Bowel Movements Output, 15 0 Drainage Output, 50 200 Gastric Drainage Output, Stool 0 Output, Urine 550 550 Exam Other Physical Findings: gen lethargic, minimally responsive heent intubated cvs s1, s2 lungs transmitted abd soft, dressing intact ext no edema Results Last 24 Hrs of Lab Results: Laboratory Tests 08/30/16 0351: Anion Gap 8, Estimated GFR > 60, Glucose 89, Calcium 7.0 L, Phosphorus 2.3 L, Magnesium 1.9, Total Bilirubin 0.4, AST 22, ALT 46, Albumin 1.4 L, CBC w Diff MAN DIFF ORDERED, RBC 2.48 L, MCV 94.5, MCH 31.4 H, RDW 15.3 H, MPV 9.2, Gran % 97.2 H, Lymphocytes % 2.6 L, Monocytes % 0.1 L, Eosinophils % 0.1, Basophils % 0 L, Absolute Granulocytes 21.7 H, Segmented Neutrophils 90 H, Band Neutrophils 5, Absolute Lymphocytes 0.6 L, Lymphocytes 3 L, Monocytes 1 L, Absolute Monocytes 0 L, Absolute Eosinophils 0, Absolute Basophils 0, Metamyelocytes 1, Platelet Estimate DECREASED, Polychromasia 1+, Hypochromic- Microcytic 1+, PUBS MCHC 33.2 Impression/Plan Impression/Plan Impression/Plan: Impression 60 year old woman * Resolved septic shock - pericolic abscess s/p drainage and sigmoid colectomy with end colostomyvere sepsis - origin maybe urinary source, abdominal pathology and aspiration pneumonia * SIERRA most likely secondary to prerenal causes - improving * new thrombocytopenia, likely coagulopathy due to sepsis, however will hold heparin products at this time, when recovers can resume chemical prophylaxis Plan Respiratory -TRC/Nebs -aspiration precautions -reduce fio2 as tolerated, no cpap trial until at least 40%fio2 ID -continue abx -ID consultation follow up -on zosyn, fluconazole CVS -monitor hemodynamics -monitor cvp -agree with pursuing picc line Heme -monitor cbc, coags -new thrombocytopenia, likely coagulopathy due to sepsis, however will hold heparin products at this time, when recovers can resume chemical prophylaxis Metabolic -SIERRA, prerenal most likely cause -d51/2ns due to hypoglycemia Alimentary -aspiration precautions -f/u surgery for nutrition, currently NPO Neuro -not requiring sedation, morphine and ativan pushes -psych appreciated -psych follow up when extubated DVT prophylaxis at all times - new thrombocytopenia, likely coagulopathy due to sepsis, however will hold heparin products at this time, when recovers can resume chemical prophylaxis TTS 35 min
--- NOTE | 2016-08-30 12:07 | RADIOLOGY REPORT ---
EXAMINATION: XR PORTABLE CHEST CLINICAL INFORMATION: ET tube positioning. Critically ill patient on mechanical ventilation. COMPARISON: Chest x-ray dated 08/29/2016 and multiple prior chest x-rays. TECHNIQUE: Portable AP semierect view of the chest was obtained. FINDINGS: Endotracheal tube tip is 2.4 cm above the evelio. Right jugular central venous line is in the deep SVC. Enteric tube courses into the abdomen with tip not included. The cardiomediastinal silhouette is normal. Calcification of the aortic arch is seen. Small bilateral pleural effusions are again seen with bibasilar opacities, likely related to atelectasis. Upper lungs are clear. No pneumothorax is seen. Bony structures are unremarkable. IMPRESSION: 1. Endotracheal tube tip 2.4 cm above the evelio. 2. Right jugular central venous line in deep SVC. No pneumothorax. 3. No significant change in small bilateral pleural effusions and associated bibasilar atelectasis.
--- NOTE | 2016-08-30 14:41 | NUR ---
PT IS EITHER AWAKE ON HER OWN OR WAKES TO NAME TODAY. SHE OPENS EYE AND FOLLOWS SIMPLE COMMANDS. MEDICATED FOR PAIN X 1 WITH RELIEF. GRAINY BROWN STOOL THROUGH COLOSTOMY. J/P C/D/C . DSD IN PLACE. O2 IS AT 50%. SUCTIONED FOR THIN WHITE. TOLERATED SITTING IN THE CHAIR POSITION IN THE BED, MONITOR NSR . BLOOD CULTURES, URINE CULTURE, AND SPUTEM CULTURE SENT.
--- NOTE | 2016-08-30 14:54 | Incdntl Nt Psy ---
Incidental Note Notation: Subjective: (Patient currently intubated and sleeping) There is some family concern that patient may withdrawal from her psychotropic medications. Objective: Current psych med list based [facility] with[facility] visit on is as follows: - Hydroxyzine 25 mg tabs twice a day when necessary anxiety - Clonazepam 0.5 mg tab once daily when necessary anxiety, of note last refill dose was reduced and only 3 tablets were dispensed on 08/09/16 - Propranolol 10 mg tab daily at bedtime - Sertraline 200 mg daily - Trazodone 200 mg daily at bedtime Per nursing report the patient does open her eyes when name is spoken. Assessment: The patient had been tapering off of clonazepam so withdrawal syndrome is unlikely, however she may experience residual anxiety. Of her other medications the only other were discontinuation is a concern is sertraline which can cause a brief discontinuation syndrome typically not longer than 3 days. This typically includes flulike symptoms. This likely would have passed while the patient was delirious Plan: - Restart psychotropic meds once mentation has improved. Would recommend the following dosing: - Sertraline 50 mg once daily, plan to increase in 3 days - Propranolol 10 mg daily at bedtime - Trazodone 200 mg daily at bedtime - Revisit hydroxyzine once mentation is improved for a few days - Utilize when necessary lorazepam as currently ordered for anxiety
[2016-08-30 16:00] VITALS: BP 114/70
[2016-08-31] VITALS: BP 94/62
[2016-08-31 05:10] LABS: ABSOLUTE BASOPHIL COUNT 0 /CUMM (0.0-0.2); ABSOLUTE EOSINOPHIL COUNT 0.1 /CUMM (0.0-0.7); ABSOLUTE GRANULOCYTE CT 25.8 /CUMM (1.4-6.5); ABSOLUTE LYMPH COUNT 0.7 /CUMM (1.2-3.4); ABSOLUTE MONOCYTE COUNT 0 /CUMM (0.10-0.60); BASOPHIL % 0 % (0.0-2.0); EOSINOPHIL % 0.3 % (0-5); GRANULOCYTE % 96.9 % (42.2-75.2); HEMATOCRIT 21.7 % (37-47); MEAN CORPUSCULAR VOLUME 93.7 FL (81.0-99.0); MEAN PLATELET VOLUME 10.3 FL (7.4-10.4); PLATELET COUNT 105 /CUMM (130-400); RBC DISTRIBUTION WIDTH 15.4 % (11.5-14.5); RED BLOOD CELL CT 2.32 /CUMM (4.20-5.40); WHITE BLOOD CELL COUNT 26.6 /CUMM (4.8-10.8)
--- NOTE | 2016-08-31 06:00 | PN- General Surgery ---
Subjective Subjective: Intubate, responds to verbal stimuli No acute events overnight Objective Vital Signs and I&Os Vital Signs Date Time Temp Pulse Resp B/P B/P Pulse O2 O2 Flow FiO2 Mean Ox Delivery Rate 08/31 0400 92 Ventilator 50% 08/31 0326 50 08/31 0130 99.3 08/31 0123 50 08/31 0018 100.8 08/31 0000 100.8 86 27 94/62 93 Ventilator 50% 08/31 0000 93 Ventilator 50% 08/30 2156 50 08/30 2000 91 Ventilator 50% 08/30 1920 50 08/30 1600 92 Ventilator 50% 08/30 1600 97.9 94 36 114/70 92 Ventilator 50% 08/30 1540 50 08/30 1346 50 08/30 1200 94 Ventilator 50% 08/30 1130 50 08/30 0859 60 08/30 0800 94 Ventilator 60% 08/30 0800 98.2 94 26 104/80 94 Ventilator 60% 08/30 0559 60 Intake & Output 08/31 0800 08/31 0000 08/30 1600 08/30 0800 08/30 0000 08/29 1600 Intake Total 1413.0 1700 1515 1666 1200 Output Total 700 470 615 750 440 Balance 713.0 1230 900 916 760 Intake, IV 1272 1700 1515 1666 1200 Intake, Lipid 23.0 Intake, Oral 0 0 Intake, 118 TPN/PPN Number 0 Bowel Movements Output, 20 15 0 20 Drainage Output, 150 50 200 Gastric Drainage Output, Stool 50 50 0 50 Output, Urine 500 400 550 550 370 Patient 130 lb Weight Physical Exam: Well-developed well-nourished intubated Neck: Supple, Respiratory: No respiratory distress, lungs clear anterior Heart: Regular rate and rhythm Abdomen: Mid and proximal incision is clean dry and intact, distal aspects of incision has tiny amount of packing left which was removed and there is seropurulent discharge which is moderate. Dry sterile dressing applied. Stoma is dark red with small amount of light brown feculent material and liquid in the bag Bowel sounds active. NG output with 400 mL of bilious liquid Extremities: No edema, no calf pain Neuro: Response to verbal stimuli Skin: Warm and dry, no rash on exposed skin Results Last 48 Hours of Labs: Laboratory Tests 08/31 08/30 08/30 0440 1625 UNK Chemistry Sodium (137 - 145 mmol/L) 140 140 Cancelled Potassium (3.5 - 5.1 mmol/L) 3.6 3.5 Cancelled Chloride (98 - 107 mmol/L) 118 H 117 H Cancelled Carbon Dioxide (22 - 30 mmol/L) 15 L 16 L Cancelled Anion Gap (5 - 16) 6 8 Cancelled BUN (7 - 17 mg/dL) 17 20 H Cancelled Creatinine (0.5 - 1.0 mg/dL) 0.8 0.9 Cancelled Estimated GFR (>60 ml/min) > 60 > 60 Glucose (65 - 99 mg/dL) 147 H 90 Cancelled Calcium (8.4 - 10.2 mg/dL) 6.6 L 6.8 L Cancelled Phosphorus (2.5 - 4.5 mg/dL) 2.4 L 2.2 L Cancelled Magnesium (1.6 - 2.3 mg/dL) 1.9 2.0 Cancelled Total Bilirubin (0.2 - 1.3 mg/dL) 0.3 0.5 Cancelled AST (14 - 36 U/L) 16 21 Cancelled ALT (9 - 52 U/L) 41 45 Cancelled Albumin (3.5 - 5.0 g/dL) 1.3 L 1.5 L Cancelled Hematology CBC w Diff MAN DIFF ORDERED WBC (4.8 - 10.8 /CUMM) 26.6 H RBC (4.20 - 5.40 /CUMM) 2.32 L Hgb (12.0 - 16.0 G/DL) 7.2 *L Hct (37 - 47 %) 21.7 L MCV (81.0 - 99.0 FL) 93.7 MCH (27.0 - 31.0 PG) 31.0 RDW (11.5 - 14.5 %) 15.4 H Plt Count (130 - 400 /CUMM) 105 L MPV (7.4 - 10.4 FL) 10.3 Gran % (42.2 - 75.2 %) 96.9 H Lymphocytes % (20.5 - 51.1 %) 2.6 L Monocytes % (1.7 - 9.3 %) 0.2 L Eosinophils % (0 - 5 %) 0.3 Basophils % (0.0 - 2.0 %) 0 L Absolute Granulocytes (1.4 - 6.5 /CUMM) 25.8 H Segmented Neutrophils (42.2 - 75.2 %) 94 H Absolute Lymphocytes (1.2 - 3.4 /CUMM) 0.7 L Lymphocytes (20.5 - 51.1 %) 4 L Monocytes (1.7 - 9.3 %) 1 L Absolute Monocytes (0.10 - 0.60 /CUMM) 0 L Eosinophils (0 - 5.0 %) 1 Absolute Eosinophils (0.0 - 0.7 /CUMM) 0.1 Absolute Basophils (0.0 - 0.2 /CUMM) 0 Platelet Estimate (ADEQUATE) ADEQUATE Polychromasia 1+ Ovalocytes FEW PUBS MCHC (33.0 - 37.0 G/DL) 33.0 Other Body Source Fld Total RBCs Counted (%) 100 08/30 08/29 0351 0605 Blood Gas pH (7.35 - 7.45 PH) 7.38 pCO2 (35 - 45 TORR) 24 L pO2 (80 - 100 TORR) 59 L HCO3 (21 - 28 MEQ/L) 14 L ABG O2 Sat (Measured) (>96.0 %) 90.0 L P-50 (Temp Corrected) N Carboxyhemoglobin (1.5 - 5.0 %) 0.8 L O2 Concentration % .55 Respiration Rate (BPM) 20 O2 Delivery Method VENT Vent Mode A/C Expiratory Pressure (CMH2O/P) 8 Tidal Volume (CC) 500 Chemistry Sodium (137 - 145 mmol/L) 143 Potassium (3.5 - 5.1 mmol/L) 3.4 L Chloride (98 - 107 mmol/L) 119 H Carbon Dioxide (22 - 30 mmol/L) 16 L Anion Gap (5 - 16) 8 BUN (7 - 17 mg/dL) 24 H Creatinine (0.5 - 1.0 mg/dL) 0.9 Estimated GFR (>60 ml/min) > 60 Glucose (65 - 99 mg/dL) 89 Calcium (8.4 - 10.2 mg/dL) 7.0 L Phosphorus (2.5 - 4.5 mg/dL) 2.3 L Magnesium (1.6 - 2.3 mg/dL) 1.9 Total Bilirubin (0.2 - 1.3 mg/dL) 0.4 AST (14 - 36 U/L) 22 ALT (9 - 52 U/L) 46 Albumin (3.5 - 5.0 g/dL) 1.4 L Hematology CBC w Diff MAN DIFF ORDERED WBC (4.8 - 10.8 /CUMM) 22.4 H RBC (4.20 - 5.40 /CUMM) 2.48 L Hgb (12.0 - 16.0 G/DL) 7.8 L Hct (37 - 47 %) 23.5 L MCV (81.0 - 99.0 FL) 94.5 MCH (27.0 - 31.0 PG) 31.4 H RDW (11.5 - 14.5 %) 15.3 H Plt Count (130 - 400 /CUMM) 89 L MPV (7.4 - 10.4 FL) 9.2 Gran % (42.2 - 75.2 %) 97.2 H Lymphocytes % (20.5 - 51.1 %) 2.6 L Monocytes % (1.7 - 9.3 %) 0.1 L Eosinophils % (0 - 5 %) 0.1 Basophils % (0.0 - 2.0 %) 0 L Absolute Granulocytes (1.4 - 6.5 /CUMM) 21.7 H Segmented Neutrophils (42.2 - 75.2 %) 90 H Band Neutrophils (0.0 - 5.0 %) 5 Absolute Lymphocytes (1.2 - 3.4 /CUMM) 0.6 L Lymphocytes (20.5 - 51.1 %) 3 L Monocytes (1.7 - 9.3 %) 1 L Absolute Monocytes (0.10 - 0.60 /CUMM) 0 L Absolute Eosinophils (0.0 - 0.7 /CUMM) 0 Absolute Basophils (0.0 - 0.2 /CUMM) 0 Metamyelocytes (0.0 - 1.0 %) 1 Platelet Estimate (ADEQUATE) DECREASED Polychromasia 1+ Hypochromic-Microcytic 1+ PUBS MCHC (33.0 - 37.0 G/DL) 33.2 Miscellaneous Phlebotomy Draw Site BONNIE Assessment/Plan Assessment/Plan Postoperative day 5 status post Granger's procedure for perforated colon and sepsis Continue NG tube and TPN Daily dressing changes Continue antibiotics Patient with acute blood loss anemia, transfusion if medically indicated Awaiting return of bowel function Core Measures/Miscellaneous Fulton Catheter Date In: 08/26/16 Venous Thromboembolism VTE Risk Factors: Surgery VTE Contraindications: No Contraindications VTE Diagnosis: No VTE Type: NONE VTE Confirmed by (Test): NONE Beta Raghav Is Beta Raghav a Home Med? No Antibiotics Is Patient on Antibiotics? Yes If Yes: infection
--- NOTE | 2016-08-31 06:53 | PN- Resident CRCU ---
See Addendum MARA MONROY MD 08/31/16 0653: Subjective HPI/CRCU Issues: Patient seen and examined at bedside this AM. She remains lethargic though she does occasionally follow some commands. She remains off sedation while intubated and continues to require 50% FiO2. Patient is noted to be febrile overnight with Tmax 100.8 and has increasing WBC cound this AM, concerning for possible intraabdominal abscess. Patient also had anemia to 7.2/21.7 requiring 1 U PRBC transfusion. 24 Hour Events: quality assurance monitor body: No significant events, NSR. Vital signs last 24 hours: T 97.9-100.8, HR 82-99, RR 21-32, BP 86-114/50-65, O2 91-96% on AC ventilation RR 20 FiO2 50% and 5 PEEP. Objective Vital Signs & I&O Last 8 Hrs of Vitals and I&O: Intake & Output 08/31 1600 Intake Total Output Total Balance Patient 165 lb Weight Weight Bed scale Measurement Method Exam General Appearance: well developed/nourished, no apparent distress, intubated Head: atraumatic, normal appearance Ears, Nose, Throat: moist mucus membranes Neck: normal inspection, supple Respiratory: chest non-tender, quiet respiration Cardiovascular: regular rate/rhythm Gastrointestinal: Midline incision with dry sterile dressing. Stoma pink and small amount of liquid stool appreciated. Extremities: normal inspection, Slight pedal edema Cranial Nerves: PERRL Skin: warm/dry Skin Temp/Moisture Exam: Warm/Dry Nutrition Nutrition: TPN rate Current Medications: Current Medications Sig/Ry Start time Last Medication Dose Route Stop Time Status Admin Acetaminophen 1,000 MG .STK-MED ONE 08/31 0017 DC IV 08/31 0018 Acetaminophen 1,000 MG Q6P PRN 08/27 0230 AC 08/31 N/A 1 UNIT IV 0018 Albuterol Sulfate 3 ML BID 08/28 2200 AC 08/31 INH 0818 Albuterol Sulfate 3 ML Q4H PRN 08/27 1000 AC 08/28 INH 1309 Chlorhexidine 15 ML TID 08/29 1000 AC 08/31 Gluconate PO 0847 Dextrose/Sodium 1,000 ML Q13H 08/30 0445 AC 08/31 Chloride IV 0617 Fat Emulsion 275 ML 08/31 1900 CAN Intravenous IV 09/01 1859 Fat Emulsion 200 ML 1900 05/23 1900 AC 08/30 Intravenous IV 08/31 185 1909 Fluconazole 400 MG Q24 08/30 1045 AC 08/31 Sodium Chloride 200 ML IV 1011 Lorazepam 3 MG ONCE ONE 08/31 1015 DC 08/31 IV 08/31 1016 1008 Lorazepam 0.5 MG Q6P PRN 08/26 2200 AC 08/31 IV 0453 Magnesium Sulfate 1 GM ONCE ONE 08/31 0715 DC 08/31 Dextrose/Water 100 ML IV 08/31 1114 0847 Morphine Sulfate 2 MG Q2P PRN 08/26 2200 AC 08/31 IV 1159 Pantoprazole Sodium 40 MG DAILY 08/27 1000 AC 08/31 IV 0847 Piperacillin Sod/ 4.5 GM Q6H 08/29 1400 AC 08/31 Tazobactam Sod IV 0756 Sodium Chloride 100 ML Potassium Chloride 10 MEQ ONCE ONE 08/31 0815 DC 08/31 IV 08/31 0816 0847 Potassium Chloride 20 MEQ ONCE ONE 08/31 0700 DC 08/31 IV 08/31 0701 0754 Potassium Chloride 20 MEQ Q1H 08/30 1830 DC 08/30 IV 08/30 193 1937 Total Parenteral 1 UNIT ONE 08/31 1900 CAN Nutrition IV 09/01 185 Total Parenteral 1 UNIT ONE 08/30 190 AC 08/30 Nutrition IV 08/31 185 1938 Results Results: LRC from August 30: Pseudomonas and yeast CXR Findings: MPRESSION: The tip of the endotracheal tube is located approximately 4.7 cm above the level of the evelio. No other significant interval change. CT Scan Findings: CT abdomen/pelvis: IMPRESSION: 1. Bilateral small to moderate pleural effusions with underlying nonspecific bibasilar consolidation is seen, as compared to prior study dated 08/26/2016, the size of the effusion has increased and there is nonspecific airspace disease, appears new. 2. Previously documented pneumoperitoneum is no longer visualized. 3. Postsurgical changes of left-sided colostomy at left lower quadrant of the abdomen and upper part of the pelvis. 4. A small nonobstructing small bowel loop containing ventral hernia is identified underneath the surgical khloe at right mid to lower abdomen. 5. Evidence of [id number] amount of free fluid within the abdomen, specifically around the liver and left-sided mid to lower abdomen and to a lesser extent within the pelvis, appears to have minimally increased in size since prior study. 6. No discrete loculated fluid collection is visualized. The evaluation is slightly technically limited due to lack of intravenous contrast. ECHO Findings: CONCLUSIONS Technically difficult and limited study. Normal global left ventricular size, wall thickness, systolic function with no obvious regional wall motion abnormalities. No significant valve abnormalities. Physiologic valvular regurgitation. Pulmonary artery systolic pressure is normal. Impression/Plan Impression/Problem List Impression: Ms. Camacho is a 60 year old female with PMH anxiety, depression, COPD , prior episode of severe clostridium difficile infection in 2016, tobacco abuse and gastritis who presented to the [place] [facility] after one week of altered mental status, decreased oral intake and possible withdrawl symptoms as her clonazepam was being titrated off per doctor instructions. She was found to be hypotensive, febrile and altered while in the [place] ED. In the ED: Vital signs showed Tmax 101.5, HR 116, RR 20, BP 93/62 and O2 saturation 90% on room air. Labs were significant for WBC 18.1 with 37 bands, H&H 13.7/41.6, Plt 623, Na 143 , K 3.6, Cl 107, HCO3 16, BUN/cre 28/1.8, Glu 98, Lactic acid 2.9, AST 62, ALT 42, CK 370, troponin 0.05, proBNP 25869, amylase 153, lipase <10, and UA with high protein, positive nitrite, high urobilinogen, 50 WBCs, moderate bacteria and large hgb. CXR showed no acute pulmonary process. Head CT was negative for acute pathology. Patient was admitted to the ICU and the following is the current management: 1. Severe sepsis secondary to peritonitis from perforated sigmoid colon with abscess formation * Patient febrile, + leukocytosis with bandemia, hypotensive and tachycardic on admission * Post-op day #5 from Harmann's procedure with Dr. Marcello MD; patient remains intubated off pressors or sedation, ostomy pink and viable * Patient experiencing recurrent fevers and increasing WBC count, CT scan abdomen obtained for this and showed free fluid which will require IR drainage * IR drainage of abscess, send fluid for culture, cell count etc * ID consult appreciated, continue to follow recommendations * Continue IV Zosyn and IV fluconazole to 400 g IV Q24 hours * Continue D51/2NS at 150 cc/h * Surgery follow up appreciated, Dr. Marcello MD reported patient can be started on tube feeds which will begin today * IV protonix while intubated 2. Metabolic encephalopathy * On admission, likely secondary to severe sepsis from sigmoid perforation/ peritonitis * CT head negative for acute intracranial pathology * Hold all sedatives, hold off all home psych meds until mental status improves 3. Acute hypoxemic respiratory failure * Patient initially placed on non-rebreather but was transitioned to high flow nasal cannula/ BiPAP due to tachypnea/apparent respiratory distress * Patient tolerated BiPAP well but was intubated for Ho's procedure; FiO2 requirements stable at 50% with CXR showing biabilsar nonspecific airpsace disease * Aspiration precautions * No CPAP trial until FiO2 at least 40% * Noted bilateral pleural effusions on CT chest; defer possible removal until after paracentesis 4. SIERRA * Likely prerenal in the setting of severe sepsis * Improved, continue IVF hydration * Monitor renal function and electrolytes with ICU bundle * Monitor urine output, strict Is/Os 5. Sinus tachycardia with T wave changes, IMPROVED * Continuous telemetry monitoring * Troponins negative x 3 * Echo shows normal global LV function without wall motion abnormalities and normal pulm artery systolic pressure * Monitor vital signs closely 6. Thrombocytopenia * Plt this increased to 105, a large decrease from 623 on admission * Likely 2/2 coagulopathly from sepsis * 4Ts score placed patient at low risk for HIT (<5%) * However, DC'd heparin SC and monitor Plt count with CBC; restart chem DVT prophylaxis once plt increased 7. Acute blood loss anemia * H&H 7.2/21.7 this AM, no active bleeding appreciated * Type and cross sent, 1 U PRBC transfused this AM * Follow up post-transfusion CBC FULL CODE Diet: Tube feeds DVTP: ALPS Problem List: 1. Status post Ho's procedure 2. Malnutrition 3. Diverticulosis of colon 4. History of Clostridium difficile infection 5. Lactic acidosis 6. Hypotension 7. Perforated viscus 8. Severe sepsis Pain Ratin Tomorrow's Labs & Rationales: CBC (acute blood loss anemia) ICU bundle (SIERRA, hyperchloremia) Plan DVT/Prophylaxis: pharmacological GARY CARIAS MD 08/31/16 0924: Attending MD Review Statement Attending Sign Off Attending Cosign Statement: I have: examined this patient, reviewed avalbl EMR data, personally reviewd images, discussd w/resident/PA/PAINT SPRAYING MACHINE OPERATOR HELPER, discussed mgmt plan w/kavya, discussed mgmt plan w/CM, discussed mgmt plan w/pt, agreed w/resident/PA/PAINT SPRAYING MACHINE OPERATOR HELPER, amended to note. Other Findings: Impression 60 year old woman * Resolved septic shock - pericolic abscess s/p drainage and sigmoid colectomy with end colostomyvere sepsis - origin maybe urinary source, abdominal pathology and aspiration pneumonia * SIERRA most likely secondary to prerenal causes - improving * new thrombocytopenia, likely coagulopathy due to sepsis, however will hold heparin products at this time, when recovers can resume chemical prophylaxis Plan Respiratory -TRC/Nebs -aspiration precautions -reduce fio2 as tolerated, no cpap trial until at least 40%fio2 ID -continue abx -ID consultation follow up -on zosyn, fluconazole [facility] -monitor hemodynamics -monitor cvp -agree with pursuing picc line Heme -monitor cbc, coags -new thrombocytopenia, likely coagulopathy due to sepsis, however will hold heparin products at this time, when recovers can resume chemical prophylaxis Metabolic -SIERRA, prerenal most likely cause -d51/2ns due to hypoglycemia Alimentary -aspiration precautions -f/u surgery for nutrition, currently NPO Neuro -not requiring sedation, morphine and ativan pushes -psych appreciated -psych follow up when extubated DVT prophylaxis at all times - new thrombocytopenia, likely coagulopathy due to sepsis, however will hold heparin products at this time, when recovers can resume chemical prophylaxis TTS 35 min
[2016-08-31 08:00] VITALS: BP 118/62
--- NOTE | 2016-08-31 10:39 | RADIOLOGY REPORT ---
EXAMINATION: XR PORTABLE CHEST CLINICAL INFORMATION: 60-year-old female with hypoxic respiratory failure. COMPARISON: Chest x-ray done on 08/30/2016. TECHNIQUE: Portable frontal view of the chest was obtained. FINDINGS: The tip of the endotracheal tube is located approximately 4.7 cm above the level of the evelio. The enteric tube tip is below the level of the diaphragm however is not included within the [id number]. The right-sided central line appears in good position. The heart size is within normal limits. Persistent nonspecific airspace opacification is noted at both mid to lower lung field with bilateral small pleural effusions, thickening or combination thereof, unchanged. IMPRESSION: The tip of the endotracheal tube is located approximately 4.7 cm above the level of the evelio. No other significant interval change.
--- NOTE | 2016-08-31 11:05 | CT SCAN REPORT ---
EXAMINATION: CT ABDOMEN AND PELVIS WITHOUT CONTRAST CLINICAL INFORMATION: 60 year old female with history of pneumoperitoneum, status post surgery, presented with persistent elevated WBC count. Suspected abscess. COMPARISON: CT of the chest, abdomen and pelvis done on 08/26/2016. TECHNIQUE: Multidetector volumetric imaging was performed from the superior aspect of the liver through the pubic symphysis. Sagittal and coronal reformatted images were obtained on the technologist's workstation. DLP: 778.7 mGy-cm FINDINGS: The entire study is technically limited due to lack of IV and oral contrast. LUNG BASES: Bilateral small to moderate-sized pleural effusions are noted, show interval increase in size since 08/26/2016. Bibasilar nonspecific airspace consolidation is noted, likely represents compressive atelectasis, infiltrate, or combination thereof. LIVER, GALLBLADDER, AND BILIARY TREE: 2 subcentimeter hepatic hypodensities are noted, 1 within the left and the 2nd within the right lobe of the liver, most consistent with hepatic cysts, unchanged since 08/26/2016. The remainder of the liver appears unremarkable on this nonenhanced study. The gallbladder remains distended, shows nonspecific mild wall thickening; however, appears improved since 08/26/2016. The gallbladder wall thickening is likely reactive changes from adjacent free fluid around the gallbladder bed and liver. There is no intrahepatic or extrahepatic biliary ductal dilatation present. PANCREAS: Unremarkable. SPLEEN: Unremarkable. ADRENAL GLANDS: The left adrenal gland appears minimally thickened, unchanged. The right adrenal gland is unremarkable. KIDNEYS AND URETERS: Nonspecific perinephric stranding is present bilaterally, unchanged. No evidence of hydronephrosis or calculi. BLADDER: There is a Fulton's catheter identified with the presence of air pocket within the urinary bladder. GASTROINTESTINAL TRACT: There is an enteric tube present within the stomach, with its tip projecting in the region of the fundus, appears looped within the body of the stomach. Few prominent small bowel loops with multiple air-fluid levels are noted within the central lower abdomen and upper part of the pelvis, may represent postop ileus. There is a left-sided colostomy present at left lower anterior pelvic wall. There are surgical khloe identified to the right side of the mid to lower abdomen with underlying focal defect within the wall, through which there appears to be a nonobstructing protruding small bowel loop present. ABDOMINAL WALL: Left-sided colostomy is noted at left lower anterior abdominal wall and upper part of the pelvis. To the right of the midline, there is a nonobstructing small bowel loop containing ventral hernia identified underneath the surgical khloe. LYMPH NODES: Evaluation is technically limited due to lack of contrast. Prominent nonspecific soft tissue densities are, however, noted within the retroperitoneum. No significant change. VASCULAR: Atherosclerotic disease is noted within the aorta and its branches. PELVIC VISCERA: There is no pelvic mass present. The uterus is visualized. There is no adnexal mass present. OTHER FINDINGS: Moderate amount of free fluid is noted within the peritoneal cavity, seen mostly around the liver and left mid to lower abdomen and to a lesser extent within the pelvis. There is generalized diffuse subcutaneous soft tissue prominence noted throughout the visualized lower part of the chest, abdomen and pelvis, most consistent with generalized fluid retention, of uncertain etiology. No evidence of any residual pneumoperitoneum visualized. OSSEOUS STRUCTURES: Persistent stable grade 1-2 anterolisthesis of L4 over L5 and significant facet joint arthritic changes are noted. Multilevel degenerative spondylosis-related changes are also noted within the visualized lower thoracic and lumbosacral spine, unchanged. IMPRESSION: 1. Bilateral small to moderate pleural effusions with underlying nonspecific bibasilar consolidation is seen, as compared to prior study dated 08/26/2016, the size of the effusion has increased and there is nonspecific airspace disease, appears new. 2. Previously documented pneumoperitoneum is no longer visualized. 3. Postsurgical changes of left-sided colostomy at left lower quadrant of the abdomen and upper part of the pelvis. 4. A small nonobstructing small bowel loop containing ventral hernia is identified underneath the surgical khloe at right mid to lower abdomen. 5. Evidence of uyrvo-tl-[id number] amount of free fluid within the abdomen, specifically around the liver and left-sided mid to lower abdomen and to a lesser extent within the pelvis, appears to have minimally increased in size since prior study. 6. No discrete loculated fluid collection is visualized. The evaluation is slightly technically limited due to lack of intravenous contrast.
--- NOTE | 2016-08-31 11:29 | PN- General Surgery ---
Surgical Brief Attending Note Brief Attending Note: PERSISTENT LEUKOCYTOSIS AND RECURRENT FEVERS. CT REVIEWED. FORMAL REPORT PENDING. FINDINGS SHOW TWO INTRAABDOMINAL FLUID COLLECTIONS, ONE IN RUQ AND LLQ, BOTH LIKELY REPRESENTING ABSCESSES. THEY WILL NEED TO BE DRAINED PERCUTANEOUSLY VIA IR. THERE ARE ALSO MODERATE BILATERAL EFFUSION. DEFER MANAGMENT TO ICU TEAM.
--- NOTE | 2016-08-31 12:14 | PN- Infect Dx ---
Subjective Subjective: MAXIMUM TEMPERATURE 100.8 Objective Last 24 Hrs of Vital Signs/I&O Vital Signs Date Time Temp Pulse Resp B/P B/P Pulse O2 O2 Flow FiO2 Mean Ox Delivery Rate 08/31 1148 50 08/31 0835 50 08/31 0800 97.2 89 30 118/62 94 Ventilator 50% 08/31 0800 90 Ventilator 50% 08/31 0632 50 08/31 0400 92 Ventilator 50% 08/31 0326 50 08/31 0130 99.3 08/31 0123 50 08/31 0018 100.8 05 0000 100.8 86 27 94/62 93 Ventilator 50% 08/31 0000 93 Ventilator 50% 08/30 2156 50 08/30 2000 91 Ventilator 50% 08/30 1920 50 08/30 1600 92 Ventilator 50% 08/30 1600 97.9 94 36 114/70 92 Ventilator 50% 08/30 1540 50 08/30 1346 50 Intake & Output 08/31 1600 08/31 0800 05 0000 Intake Total 2000.0 1413.0 Output Total 550 700 Balance 1450.0 713.0 Intake, IV 1589 1272 Intake, Lipid 68.0 23.0 Intake, Oral 0 Intake, 343 118 TPN/PPN Output, 150 150 Gastric Drainage Output, Stool 0 50 Output, Urine 400 500 Patient 165 lb Weight Weight Bed scale Measurement Method Physical Exam Other Physical Findings: She is awake and responsive on the ventilator Neck right IJ triple lumen catheter with no inflammation at the site Lungs bilateral rhonchi Heart regular rhythm with no murmur Abdomen is distended, nontender with positive bowel sounds; incision with seropurulent drainage with no erythema; colostomy with liquid output Extremities trace edema both lower extremities Fulton catheter remains in place Results Last 24 Hours of Lab Results: Laboratory Tests 08/31 08/30 0440 1625 Chemistry Sodium (137 - 145 mmol/L) 140 140 Potassium (3.5 - 5.1 mmol/L) 3.6 3.5 Chloride (98 - 107 mmol/L) 118 H 117 H Carbon Dioxide (22 - 30 mmol/L) 15 L 16 L Anion Gap (5 - 16) 6 8 BUN (7 - 17 mg/dL) 17 20 H Creatinine (0.5 - 1.0 mg/dL) 0.8 0.9 Estimated GFR (>60 ml/min) > 60 > 60 Glucose (65 - 99 mg/dL) 147 H 90 Calcium (8.4 - 10.2 mg/dL) 6.6 L 6.8 L Phosphorus (2.5 - 4.5 mg/dL) 2.4 L 2.2 L Magnesium (1.6 - 2.3 mg/dL) 1.9 2.0 Total Bilirubin (0.2 - 1.3 mg/dL) 0.3 0.5 AST (14 - 36 U/L) 16 21 ALT (9 - 52 U/L) 41 45 Albumin (3.5 - 5.0 g/dL) 1.3 L 1.5 L Prealbumin (17.6 - 36.0 mg/dL) 4.1 L Triglycerides (<150 mg/dL) 113 Hematology CBC w Diff MAN DIFF ORDERED WBC (4.8 - 10.8 /CUMM) 26.6 H RBC (4.20 - 5.40 /CUMM) 2.32 L Hgb (12.0 - 16.0 G/DL) 7.2 *L Hct (37 - 47 %) 21.7 L MCV (81.0 - 99.0 FL) 93.7 MCH (27.0 - 31.0 PG) 31.0 RDW (11.5 - 14.5 %) 15.4 H Plt Count (130 - 400 /CUMM) 105 L MPV (7.4 - 10.4 FL) 10.3 Gran % (42.2 - 75.2 %) 96.9 H Lymphocytes % (20.5 - 51.1 %) 2.6 L Monocytes % (1.7 - 9.3 %) 0.2 L Eosinophils % (0 - 5 %) 0.3 Basophils % (0.0 - 2.0 %) 0 L Absolute Granulocytes (1.4 - 6.5 /CUMM) 25.8 H Segmented Neutrophils (42.2 - 75.2 %) 94 H Absolute Lymphocytes (1.2 - 3.4 /CUMM) 0.7 L Lymphocytes (20.5 - 51.1 %) 4 L Monocytes (1.7 - 9.3 %) 1 L Absolute Monocytes (0.10 - 0.60 /CUMM) 0 L Eosinophils (0 - 5.0 %) 1 Absolute Eosinophils (0.0 - 0.7 /CUMM) 0.1 Absolute Basophils (0.0 - 0.2 /CUMM) 0 Platelet Estimate (ADEQUATE) ADEQUATE Polychromasia 1+ Ovalocytes FEW PUBS MCHC (33.0 - 37.0 G/DL) 33.0 Other Body Source Fld Total RBCs Counted (%) 100 Last 24 Hours of [place] Results: Blood cultures August 30 negative Urine culture August 30 negative Sputum culture August 30 positive for light growth of Pseudomonas and yeast Blood culture August 25 positive for Clostridium species Recent Imaging Studies: Chest x-ray August 31 persistent nonspecific airspace opacification of both mid to lower lung rosenbaum with bilateral small pleural effusions CT of the abdomen and pelvis obtained this morning reveals bilateral small to moderate sized pleural effusions with bibasilar nonspecific airspace consolidation; distended gallbladder with nonspecific mild wall thickening, improved from the previous study; moderate amount of free fluid within the peroneal cavity, mostly around the liver and left mid to lower abdomen and to a lesser extent within the pelvis; no discrete loculated fluid collection visualized Assessment/Plan Impression: Recurrent fevers with increasing white blood cell count now 5 days status post Granger's procedure for a perforated sigmoid colon with abscess formation and with gross purulent peritonitis noted, now on Zosyn and Fluconazole for multiple organisms isolated from the OR cultures and for possible Pseudomonas pneumonia, though the chest x-ray and CT scan are more suggestive of atelectasis. The significance of the recent CT findings of free fluid within the abdomen is unclear given her recent surgery, but, given the seropurulent drainage from the incision, must consider the possibility of a residual intra-abdominal infection. The pleural effusions could represent empyemas and she may warrant diagnostic and therapeutic thoracenteses at some point, particularly if her fevers or leukocytosis persists. The positive blood culture has been reevaluated and is again felt to be Clostridium. Suggestion: 1. Await CT-guided drainage of the intra-abdominal fluid by IR 2. Would pursue placement of a PICC so that the right IJ can be removed 3. Continue Zosyn and Fluconazole
--- NOTE | 2016-08-31 12:21 | NUR ---
@0800-PT DROWS/AROUS. OPENS EYES TO VERBAL STIMULI. PUPILS EQUAL AND REACTIVE. PT NOT FOLLOWING COMMANDS AT THIS TIME. BILAT WRISTS RESTRAINTS CONT FOR SAFETY OF ETT/IV LINES. MEDICATED WITH PRN ATIVAN/MORPHINE. CONT ON VENT-NO CHANGE TO SETTINGS AT THIS TIME. FIO2 50%, O2SAT 91-94%. NSR 80S-90S. CVP 8. BP STABLE. NO CARDIAC DISTRESS NOTED. COLOSTOMY NOTED TO L ABD. STOMA PINK, SEMILIQ BROWN STOOL NOTED. +BS NOTED. NGT R NARES TO LWS-THICK GREEN DRAINAGE NOTED. TOBAR IN PLACE-ADEQUATE OUTPUT NOTED. BUE +2/+3 EDEMA NOTED, ELEVATED ON PILLOWS. +2 BLE EDEMA NOTED. RIJ TLC-IVF INFUSING. TPN/LIPIDS INFUSING. PT TO RECIEVE TOTAL 30MEQ KCL INFUSION FOR K+3.6. MAG 1 GM FOR MAG LEVEL 1.9. TYPE AND CROSS DRAWN AND SENT TO LAB. PT TO RECIEVE 1 UNIT PRBC WHEN T&C AVAIL. CONT TO MONITOR CLOSELY. CALL TIM WITHIN REACH.
--- NOTE | 2016-08-31 12:28 | NUR ---
@0915-THIS RN TRANSPORTED PT TO CT SCAN FOR CT ABD/PELVIS. PT VAUGHN WELL. UPON TRANSFER BACK TO UNIT, PT BECAME TACHYPNEIC. RR 35-40. MEDICATED WITH 1X ORDER ATIVAN 3MG. SKIN-PT NOTED TO HAVE REDDENED PIMPLE AREAS TO BUTTOCKS, HEALING ABRASION TO MID BACK. MULT BLACKHEADS TO PERIAREA(DR CARIAS AND DR JANG AT BEDSIDE TO ASSESS AREA). CREAM APPLIED TO REDDENED AREAS. PT CONT ON SPECIALTY MATTRESS. CALL TIM WITHIN REACH. @1030-1 UNIT PRBC INFUSING ORD. @1100-NEW DSG APPLIED TO SURG INCISION. PER DR AKHTAR, 2 INCH PLAIN PACKING PLACED TO OPEN AREA OF INCISION. STAPLE LINE CDI. FLUFF AND ABD PADS APPLIED. CONT TO MONITOR CLOSELY. CALL TIM WITHIN REACH.
[2016-08-31 15:08] LABS: ABSOLUTE BASOPHIL COUNT 0 /CUMM (0.0-0.2); ABSOLUTE EOSINOPHIL COUNT 0.1 /CUMM (0.0-0.7); ABSOLUTE GRANULOCYTE CT 29.2 /CUMM (1.4-6.5); ABSOLUTE LYMPH COUNT 0.7 /CUMM (1.2-3.4); ABSOLUTE MONOCYTE COUNT 0 /CUMM (0.10-0.60); BASOPHIL % 0 % (0.0-2.0); EOSINOPHIL % 0.3 % (0-5); GRANULOCYTE % 97.4 % (42.2-75.2); MEAN CORPUSCULAR HGB 30.3 PG (27.0-31.0); MEAN CORPUSCULAR HGB CONC 33.1 G/DL (33.0-37.0); MEAN CORPUSCULAR VOLUME 91.5 FL (81.0-99.0); MEAN PLATELET VOLUME 10.6 FL (7.4-10.4); PLATELET COUNT 123 /CUMM (130-400); RBC DISTRIBUTION WIDTH 16.2 % (11.5-14.5); WHITE BLOOD CELL COUNT 29.9 /CUMM (4.8-10.8)
[2016-08-31 15:18] LABS: HEMATOCRIT 26.9 % (37-47); RED BLOOD CELL CT 2.94 /CUMM (4.20-5.40)
[2016-08-31 16:00] VITALS: BP 110/70
[2016-08-31 23:00] VITALS: BP 110/56
--- NOTE | 2016-09-01 01:26 | NUR ---
FROM 1900-PT OPENS EYES TO VERBAL STIMULI, BUT NOT FOLLOWING COMMANDS AT PRESENT. SOFT BILATERAL WRIST RESTRAINTS IN PLACE. PT ON PRN MORPHINE AND ATIVAN-SEE EMAR FOR ADMINISTRATION. ORALLY INTUBAED AND VENTED. RHONCI THOUGHOUT. SUCTIONING FOR MOD AMT THICK YELLOW SECREATIONS. SEE FLOW SHEET FOR VS, 02 SATS, I/O'S. MONITOR SHOWS NSR-ST NO ECTOPY NOTED AT PRESENT. SBP 90-110'S AT PRESENT. NGT TO RT NARES-TAPED AT 68CM-ON TUBE FEEDS-TOLERATING WELL AT PRESENT, PLACEMENT CONFIRMED BY AIR. COLOSTOMY IN PLACE-DRAINING LIQUID BROWN DRAINAGE. STOMA PINK. ABD SOFT, POSITIVE BOWEL SOUNDS. TOBAR IN PLACE-DRAINING ADEQUATE URINE AT PRESENT. SKIN INTACT. BUE 3-4+ PITTING EDEMA, BLE WITH 2+ PITTING EDEMA. PT WARM TO TOUCH, CLAMMY. ABD DSG C/D/I
[2016-09-01 04:59] LABS: ABSOLUTE BASOPHIL COUNT 0 /CUMM (0.0-0.2); ABSOLUTE EOSINOPHIL COUNT 0.1 /CUMM (0.0-0.7); ABSOLUTE GRANULOCYTE CT 35.9 /CUMM (1.4-6.5); ABSOLUTE LYMPH COUNT 0.9 /CUMM (1.2-3.4); ABSOLUTE MONOCYTE COUNT 0.1 /CUMM (0.10-0.60); BASOPHIL % 0 % (0.0-2.0); EOSINOPHIL % 0.3 % (0-5); HEMATOCRIT 27.2 % (37-47); MEAN CORPUSCULAR HGB 31.1 PG (27.0-31.0); MEAN CORPUSCULAR VOLUME 91.6 FL (81.0-99.0); MEAN PLATELET VOLUME 10.5 FL (7.4-10.4); PLATELET COUNT 147 /CUMM (130-400); RBC DISTRIBUTION WIDTH 16.3 % (11.5-14.5); RED BLOOD CELL CT 2.97 /CUMM (4.20-5.40)
--- NOTE | 2016-09-01 06:08 | PN- General Surgery ---
Subjective Subjective: remains intubated with pulm issues opens eyes but not following commands leukocytosis to 37,000(29k,26k,22k previous) low grade temp overnight tube feeds with minimal residuals Objective Vital Signs and I&Os Vital Signs Date Time Temp Pulse Resp B/P B/P Pulse O2 O2 Flow FiO2 Mean Ox Delivery Rate 09/01 0354 50 05/ 0116 50 05 0000 91 Ventilator 50% 08/31 2300 99.4 95 27 110/56 91 Ventilator 50% 08/31 2247 50 08/31 2000 95 Ventilator 50% 08/31 1925 5 08/31 1610 50 05 1600 100.0 96 28 110/70 92 Ventilator 50% 05 1600 91 Ventilator 50% 08/31 1350 50 05 1200 93 Ventilator 50% 08/31 1148 50 08/31 0835 50 08/31 0800 97.2 89 30 118/62 94 Ventilator 50% 08/31 0800 90 Ventilator 50% 08/31 0632 50 Intake & Output 09/01 0800 09/01 0000 08/31 1600 08/31 0800 08/31 0000 08/30 1600 Intake Total 1100 1935.0 2000.0 1413.0 1700 Output Total 605 870 550 700 470 Balance 495 1065.0 1450.0 713.0 1230 Intake, Blood 400 Product Intake, IV 969 1170 1589 1272 1700 Intake, Lipid 61.0 68.0 23.0 Intake, Oral 0 0 Intake, 304 343 118 TPN/PPN Intake, Tube 71 Feeding Intake, Tube 60 Irrigant Output, 20 Drainage Output, 200 150 150 Gastric Drainage Output, Stool 50 120 0 50 50 Output, Urine 555 550 400 500 400 Patient 165 lb 130 lb Weight Weight Bed scale Measurement Method Physical Exam: cv: rrr lungs: decreased in bases scattered rhonchi abd: soft midline incision dry intact, no cellulitis present inferior incision packed with saline gauze with no exudate stoma slightly retracted, dark red in color brown liquid stool ostomy, no gas ext: edematous, moving indepencently Assessment/Plan Assessment/Plan general surgical stable plan awaiting IR abdominal tap of collections continue tube feeds consider lung taps as source appreciate ID consult crit care plan
--- NOTE | 2016-09-01 06:47 | PN- Resident CRCU ---
Subjective HPI/CRCU Issues: Patient seen and examined at bedside this AM. She remains on mechanical ventilation and is ordered ativan IV 2 mg Q4P for agitation, the last given 09/01 at 8 AM. Patient is noted to have increased WBC count today to 37.0 with 0 bands and 97% granulocytes; she is on Zosyn and Fluconazole and is pending IR drainage of intraabdominal fluid collections. Of note, TPN discontinued yesterday as Dr. Marcello MD (attending surgeon) reported it was okay to use tube feeds. Tube feeds started with Osmolite (low fiber) which are currently on hold pending IR drainage. 24 Hour Events: Vital signs last 24 hours: T 97.2- Tmax 100.0, HR 89-103, RR 22-30, BP 90-123/44-73, O2 sat 90-94% on AC RR 20, TV 450, 50% FiO2 and 5 PEEP. Total intake last 24 hours: 4046 cc Total output: 1950 cc Objective Vital Signs & I&O Last 8 Hrs of Vitals and I&O: T 97.2- Tmax 100.0, HR 89-103, RR 22-30, BP 90-123/44-73, O2 sat 90-94% on AC RR 20, TV 450, 50% FiO2 and 5 PEEP. Exam General Appearance: well developed/nourished, no apparent distress, intubated Head: atraumatic, normal appearance Ears, Nose, Throat: normal pharynx, Slightly dry mucous membranes Neck: normal inspection, supple Respiratory: Diffuse rhonchi appreciated, worse left lung rosenbaum Cardiovascular: regular rate/rhythm Gastrointestinal: Ostomy draining green feculant material, midline incision clean and dry Extremities: Pedal edema; + pitting edema bilateral upper extremities Cranial Nerves: PERRL Skin: normal color, warm/dry Nutrition Nutrition: tube feeding Current Medications: Current Medications Sig/Ry Start time Last Medication Dose Route Stop Time Status Admin Acetaminophen 1,000 MG Q6P PRN 08/27 0230 AC 08/31 N/A 1 UNIT IV 0018 Albuterol Sulfate 3 ML BID 08/28 220 AC 08/31 INH 2002 Albuterol Sulfate 3 ML Q4H PRN 08/27 1000 AC 08/28 INH 1309 Chlorhexidine 15 ML TID 08/29 1000 AC 08/31 Gluconate PO 215 Dextrose/Sodium 1,000 ML Q13H 08/30 0445 AC 09/01 Chloride IV 0804 Fat Emulsion 275 ML 1900 08/31 1900 CAN Intravenous IV 09/01 1859 Fat Emulsion 200 ML 1900 08/30 1900 DC 08/30 Intravenous IV 08/31 185 1909 Fluconazole 400 MG Q24 08/30 1045 AC 08/31 Sodium Chloride 200 ML IV 1011 Lorazepam 2 MG Q4-PRN PRN 08/31 1730 AC 09/01 IV 0805 Lorazepam 2 MG ONCE ONE 08/31 1645 DC 08/31 IV 08/31 1646 1656 Lorazepam 3 MG ONCE ONE 08/31 1015 DC 08/31 IV 08/31 1016 1008 Lorazepam 0.5 MG Q6P PRN 08/26 2200 DC 08/31 IV 1330 Magnesium Sulfate 1 GM Q2H 09/01 0700 AC Dextrose/Water 100 ML IV 09/01 1059 Magnesium Sulfate 1 GM ONCE ONE 08/31 0715 DC 08/31 Dextrose/Water 100 ML IV 08/31 1114 0847 Morphine Sulfate 2 MG Q2P PRN 08/26 2200 AC 09/01 IV 0805 Pantoprazole Sodium 40 MG DAILY 08/27 1000 AC 08/31 IV 0847 Piperacillin Sod/ 4.5 GM Q6H 08/29 1400 AC 09/01 Tazobactam Sod IV 0312 Sodium Chloride 100 ML Potassium Chloride 20 MEQ ONCE ONE 09/01 0700 DC IV 09/01 0701 Total Parenteral 1 UNIT ONE 08/31 1900 CAN Nutrition IV 09/01 185 Total Parenteral 1 UNIT ONE 08/30 1900 DC 08/30 Nutrition IV 08/31 185 1938 Results Results: [facility] 08/30/16: Pseudomonas aeruginosa and Yeast CT Scan Findings: Abdomen/pelvis CT: IMPRESSION: 1. Bilateral small to moderate pleural effusions with underlying nonspecific bibasilar consolidation is seen, as compared to prior study dated 08/26/2016, the size of the effusion has increased and there is nonspecific airspace disease, appears new. 2. Previously documented pneumoperitoneum is no longer visualized. 3. Postsurgical changes of left-sided colostomy at left lower quadrant of the abdomen and upper part of the pelvis. 4. A small nonobstructing small bowel loop containing ventral hernia is identified underneath the surgical khloe at right mid to lower abdomen. 5. Evidence of vctru-iz-ytaeaekx amount of free fluid within the abdomen, specifically around the liver and left-sided mid to lower abdomen and to a lesser extent within the pelvis, appears to have minimally increased in size since prior study. 6. No discrete loculated fluid collection is visualized. The evaluation is slightly technically limited due to lack of intravenous contrast. Impression/Plan Impression/Problem List Impression: Ms. Camacho is a 60 year old female with PMH anxiety, depression, COPD , prior episode of severe clostridium difficile infection in 2016, tobacco abuse and gastritis who presented to the [facility] ED after one week of altered mental status, decreased oral intake and possible withdrawl symptoms as her clonazepam was being titrated off per doctor instructions. She was found to be hypotensive, febrile and altered while in the [facility] ED. In the ED: Vital signs showed Tmax 101.5, HR 116, RR 20, BP 93/62 and O2 saturation 90% on room air. Labs were significant for WBC 18.1 with 37 bands, H&H 13.7/41.6, Plt 623, Na 143 , K 3.6, Cl 107, HCO3 16, BUN/cre 28/1.8, Glu 98, Lactic acid 2.9, AST 62, ALT 42, CK 370, troponin 0.05, proBNP 84198, amylase 153, lipase <10, and UA with high protein, positive nitrite, high urobilinogen, 50 WBCs, moderate bacteria and large hgb. CXR showed no acute pulmonary process. Head CT was negative for acute pathology. Patient was admitted to the ICU and the following is the current management: 1. Severe sepsis secondary to peritonitis from perforated sigmoid colon with abscess formation * Patient febrile, + leukocytosis with bandemia, hypotensive and tachycardic on admission * Post-op day #6 from Harmann's procedure with Dr. Marcello MD; patient remains intubated off pressors or sedation, ostomy pink with + green liquid stool * Patient experienced recurrent fevers and increasing WBC count, CT scan abdomen obtained for this and showed free fluid for which IR has placed 2 drains 09/01/16 (RUQ, LLQ) * RUQ draining purulent material; f/u fluid for culture, cell count etc * ID consult appreciated, continue to follow recommendations * [facility]RC shows pseudomonas resistant to zosyn; will switch to IV meropenem and continue IV fluconazole to 400 g IV Q24 hours * Continue D51/2NS at 150 cc/h to maintain CVP 8-10; continue tube feeds * Surgery follow up appreciated with Dr. Marcello MD * IV protonix while intubated 2. Metabolic encephalopathy * On admission, likely secondary to severe sepsis from sigmoid perforation/ peritonitis * CT head negative for acute intracranial pathology * Hold all sedatives, hold off all home psych meds until mental status improves 3. Acute hypoxemic respiratory failure * Patient initially placed on non-rebreather but was transitioned to high flow nasal cannula/ BiPAP due to tachypnea/apparent respiratory distress * Patient tolerated BiPAP well but was intubated for Ho's procedure; FiO2 requirements stable at 50% with CXR showing biabilsar nonspecific airpsace disease * Aspiration precautions * No CPAP trial until FiO2 at least 40% * Noted bilateral pleural effusions on CT chest; defer possible removal until after paracentesis 4. SIERRA * Likely prerenal in the setting of severe sepsis * Improved, continue IVF hydration * Monitor renal function and electrolytes with ICU bundle * Monitor urine output, strict Is/Os 5. Sinus tachycardia with T wave changes, IMPROVED * Continuous telemetry monitoring * Troponins negative x 3 * Echo shows normal global LV function without wall motion abnormalities and normal pulm artery systolic pressure * Monitor vital signs closely 6. Thrombocytopenia, IMPROVIN * Plt this AM increased to 147, a large decrease from 623 on admission * Likely 2/2 coagulopathly from sepsis * 4Ts score placed patient at low risk for HIT (<5%) * However, DC'd heparin SC and monitor Plt count with CBC; restart chem DVT prophylaxis likely tomorrow 7. Acute blood loss anemia * H&H stable at 9.2/27.2 this AM after 1 U PRBC yesterday, no active bleeding appreciated * Follow up CBC daily FULL CODE Diet: Tube feeds DVTP: ALPS Problem List: 1. Severe sepsis 2. Perforated viscus 3. Hypotension 4. Lactic acidosis 5. History of Clostridium difficile infection 6. Malnutrition 7. Diverticulosis of colon 8. History of adenomatous polyp of colon 9. Status post Ho's procedure Pain Ratin Tomorrow's Labs & Rationales: CBC (leukocytosis) ICU budle (hyperchloremia, renal dysfunction) Plan DVT/Prophylaxis: pharmacological
--- NOTE | 2016-09-01 07:49 | NUR ---
PT REMAINS DROWSY, AROUSABLE TO VERBAL STIMULI, NOT FOLLOWING COMMANDS THOUGHOUT SHIFT. RECEIVED MORPHINE AND ATIVAN PRN FOR HIGH RESPIRATORY RATE-SEE EMAR-GOOD EFFECT FROM MEDS. COARSE BREATH SOUNDS THOUGHOUT, SUCTIONING FOR SCANT TO SMALL AMT OF THIN ODELL SECREATIONS. NSR-ST, HR-90-100'S FOR SHIFT. SBP 90-100'S FOR SHIFT. COLOSTOMY DRAINING LIQUID GREEN STOOL, STOMA PINK. ABD DRESSING CHANGED BY REMBERTO WILLS AT 0500-C/D/I. TOBAR WITH ADEQUATE OUTPUT OF CLEAR YELLOW URINE THOUGHOUT SHIFT. SKIN INTACT. NO OTHER CHANGE IN PT ASSESSMENTS THOUGHOUT SHIFT
[2016-09-01 08:00] VITALS: BP 106/64
--- NOTE | 2016-09-01 09:24 | PN- CRCU ---
See Addendum Subjective HPI/Critical Care Issues: pt seen and examined remains on mechanical ventilation wbc 37 from 29.9 hgb stable at 9.2 chloride 115 creatinine is stable albumin 1.5 Objective Current Medications: Current Medications Sig/Ry Start time Last Medication Dose Route Stop Time Status Admin Acetaminophen 1,000 MG Q6P PRN 08/27 0230 AC 08/31 N/A 1 UNIT IV 0018 Albuterol Sulfate 3 ML BID 08/28 2200 AC 09/01 INH 0914 Albuterol Sulfate 3 ML Q4H PRN 08/27 1000 AC 08/28 INH 1309 Chlorhexidine 15 ML TID 08/29 1000 AC 08/31 Gluconate PO 2158 Dextrose/Sodium 1,000 ML Q13H 08/30 0445 AC 09/01 Chloride IV 0804 Fat Emulsion 275 ML 1900 08/31 1900 CAN Intravenous IV 09/01 1859 Fat Emulsion 200 ML 1900 08/30 1900 DC 08/30 Intravenous IV 08/31 1859 1909 Fluconazole 400 MG Q24 08/30 1045 AC 08/31 Sodium Chloride 200 ML IV 1011 Lorazepam 2 MG Q4-PRN PRN 08/31 1730 AC 09/01 IV 0805 Lorazepam 2 MG ONCE ONE 08/31 1645 DC 08/31 IV 08/31 1646 1656 Lorazepam 3 MG ONCE ONE 08/31 1015 DC 08/31 IV 08/31 1016 1008 Lorazepam 0.5 MG Q6P PRN 08/26 2200 DC 08/31 IV 1330 Magnesium Sulfate 1 GM Q2H 09/01 0700 AC Dextrose/Water 100 ML IV 09/01 1059 Magnesium Sulfate 1 GM ONCE ONE 08/31 0715 DC 08/31 Dextrose/Water 100 ML IV 08/31 1114 0847 Morphine Sulfate 2 MG Q2P PRN 08/26 2200 AC 09/01 IV 0805 Pantoprazole Sodium 40 MG DAILY 08/27 1000 AC 08/31 IV 0847 Piperacillin Sod/ 4.5 GM Q6H 08/29 1400 AC 09/01 Tazobactam Sod IV 0312 Sodium Chloride 100 ML Potassium Chloride 20 MEQ ONCE ONE 09/01 0700 DC IV 09/01 0701 Total Parenteral 1 UNIT ONE 08/31 1900 CAN Nutrition IV 09/01 1859 Total Parenteral 1 UNIT ONE 08/30 1900 DC 08/30 Nutrition IV 08/31 1859 1938 Vital Signs & I&O Last 24 Hrs of Vitals and I&O: Vital Signs Date Time Temp Pulse Resp B/P B/P Pulse O2 O2 Flow FiO2 Mean Ox Delivery Rate 09/01 0810 50 09/01 0600 91 Ventilator 50% 09/01 0559 50 09/01 0354 50 09/01 0116 50 09/01 0000 91 Ventilator 50% 08/31 2300 99.4 95 27 110/56 91 Ventilator 50% 08/31 2247 50 08/31 2000 95 Ventilator 50% 08/31 1925 5 08/31 1610 50 08/31 1600 100.0 96 28 110/70 92 Ventilator 50% 08/31 1600 91 Ventilator 50% 08/31 1350 50 08/31 1200 93 Ventilator 50% 08/31 1148 50 Intake & Output 09/01 1600 09/01 0800 09/01 0000 Intake Total 1011 1100 Output Total 475 605 Balance 536 495 Intake, IV 825 969 Intake, Tube 101 71 Feeding Intake, Tube 85 60 Irrigant Output, Stool 125 50 Output, Urine 350 555 Exam Other Physical Findings: gen lethargic, minimally responsive heent intubated cvs s1, s2 lungs transmitted abd soft, dressing intact ext no edema Results Last 24 Hrs of Lab Results: Laboratory Tests 09/01/16 0429: Anion Gap 8, Estimated GFR > 60, Glucose 86, Calcium 7.1 L, Phosphorus 2.9, Magnesium 1.7, Total Bilirubin 0.8, AST 18, ALT 38, Albumin 1.5 L, CBC w Diff MAN DIFF ORDERED, RBC 2.97 L, MCV 91.6, MCH 31.1 H, RDW 16.3 H, MPV 10.5 H, Gran % 97.0 H, Lymphocytes % 2.5 L, Monocytes % 0.2 L, Eosinophils % 0.3, Basophils % 0 L, Absolute Granulocytes 35.9 H, Segmented Neutrophils 99 H, Absolute Lymphocytes 0.9 L, Lymphocytes 1 L, Absolute Monocytes 0.1 L, Absolute Eosinophils 0.1, Absolute Basophils 0, Platelet Estimate ADEQUATE, Polychromasia 1+, Hypochromic-Microcytic 1+, Poikilocytosis 1+, Basophilic Stippling SLIGHT, Ovalocytes 1+, PUBS MCHC 34.0, Fld Total RBCs Counted 100 08/31/16 1357: CBC w Diff MAN DIFF ORDERED, RBC 2.94 L, MCV 91.5, MCH 30.3, RDW 16.2 H, MPV 10.6 H, Gran % 97.4 H, Lymphocytes % 2.2 L, Monocytes % 0.1 L, Eosinophils % 0.3, Basophils % 0 L, Absolute Granulocytes 29.2 H, Segmented Neutrophils 89 H, Band Neutrophils 6 H, Absolute Lymphocytes 0.7 L, Lymphocytes 2 L, Monocytes 1 L, Absolute Monocytes 0 L, Eosinophils 2, Absolute Eosinophils 0.1 , Absolute Basophils 0, Platelet Estimate DECREASED, Polychromasia 1+, Poikilocytosis 1+, Anisocytosis 1+, Bristol Cells 1+, PUBS MCHC 33.1 Impression/Plan Impression/Plan Impression/Plan: Impression 60 year old woman * pericolic abscess s/p drainage and sigmoid colectomy with end colostomy * malnutrition * thrombocytopenia improved * abdominal fluid and pleural effusions Plan Respiratory -TRC/Nebs -aspiration precautions -reduce fio2 as tolerated ID -continue abx -ID consultation follow up -on zosyn, fluconazole -plan for IR to sample fluid, if abdominal tap is equivocal, can pursue a thoracentesis CVS -monitor hemodynamics -monitor cvp -plan for picc line Heme -monitor cbc, coags -thrombocytopenia improved, will hold a/c given plan for procedures, then will reinstitute chemical DVT prophylaxis Metabolic -SIERRA resolved -cont hydration Alimentary -aspiration precautions -f/u surgery for nutrition, currently NPO, TPN? Neuro -psych upon extubation follow up -anxiolysis DVT prophylaxis at all times (see above) TTS 40 min
--- NOTE | 2016-09-01 10:21 | PN- Infect Dx ---
Subjective Subjective: MAXIMUM TEMPERATURE 100. Objective Last 24 Hrs of Vital Signs/I&O Vital Signs Date Time Temp Pulse Resp B/P B/P Pulse O2 O2 Flow FiO2 Mean Ox Delivery Rate 09/01 0810 50 09/01 0600 91 Ventilator 50% 09/01 0559 50 09/01 0354 50 09/01 0116 50 09/01 0000 91 Ventilator 50% 08/31 2300 99.4 95 27 110/56 91 Ventilator 50% 08/31 2247 50 08/31 2000 95 Ventilator 50% 08/31 1925 5 08/31 1610 50 08/31 1600 100.0 96 28 110/70 92 Ventilator 50% 08/31 1600 91 Ventilator 50% 08/31 1350 50 08/31 1200 93 Ventilator 50% 08/31 1148 50 Intake & Output 09/01 1600 09/01 0800 09/01 0000 Intake Total 1011 1100 Output Total 475 605 Balance 536 495 Intake, IV 825 969 Intake, Tube 101 71 Feeding Intake, Tube 85 60 Irrigant Output, Stool 125 50 Output, Urine 350 555 Physical Exam Other Physical Findings: She appears awake but not clearly alert and unable to follow any commands Neck right IJ triple-lumen catheter with no inflammation at the site Lungs bilateral rhonchi Heart regular rhythm with no murmur Abdomen is soft, with positive bowel sounds; incision is clean, with packing in place over the inferior aspect; brown liquid stool in the colostomy Extremities 2+ edema both lower extremities Fulton catheter remains in place Results Last 24 Hours of Lab Results: Laboratory Tests 09/01 08/31 0429 1357 Chemistry Sodium (137 - 145 mmol/L) 138 Potassium (3.5 - 5.1 mmol/L) 3.7 Chloride (98 - 107 mmol/L) 115 H Carbon Dioxide (22 - 30 mmol/L) 15 L Anion Gap (5 - 16) 8 BUN (7 - 17 mg/dL) 13 Creatinine (0.5 - 1.0 mg/dL) 0.8 Estimated GFR (>60 ml/min) > 60 Glucose (65 - 99 mg/dL) 86 Calcium (8.4 - 10.2 mg/dL) 7.1 L Phosphorus (2.5 - 4.5 mg/dL) 2.9 Magnesium (1.6 - 2.3 mg/dL) 1.7 Total Bilirubin (0.2 - 1.3 mg/dL) 0.8 AST (14 - 36 U/L) 18 ALT (9 - 52 U/L) 38 Albumin (3.5 - 5.0 g/dL) 1.5 L Hematology CBC w Diff MAN DIFF ORDERED MAN DIFF ORDERED WBC (4.8 - 10.8 /CUMM) 37.0 *H 29.9 H RBC (4.20 - 5.40 /CUMM) 2.97 L 2.94 L Hgb (12.0 - 16.0 G/DL) 9.2 L 8.9 L Hct (37 - 47 %) 27.2 L 26.9 L MCV (81.0 - 99.0 FL) 91.6 91.5 MCH (27.0 - 31.0 PG) 31.1 H 30.3 RDW (11.5 - 14.5 %) 16.3 H 16.2 H Plt Count (130 - 400 /CUMM) 147 123 L MPV (7.4 - 10.4 FL) 10.5 H 10.6 H Gran % (42.2 - 75.2 %) 97.0 H 97.4 H Lymphocytes % (20.5 - 51.1 %) 2.5 L 2.2 L Monocytes % (1.7 - 9.3 %) 0.2 L 0.1 L Eosinophils % (0 - 5 %) 0.3 0.3 Basophils % (0.0 - 2.0 %) 0 L 0 L Absolute Granulocytes (1.4 - 6.5 /CUMM) 35.9 H 29.2 H Segmented Neutrophils (42.2 - 75.2 %) 99 H 89 H Band Neutrophils (0.0 - 5.0 %) 6 H Absolute Lymphocytes (1.2 - 3.4 /CUMM) 0.9 L 0.7 L Lymphocytes (20.5 - 51.1 %) 1 L 2 L Monocytes (1.7 - 9.3 %) 1 L Absolute Monocytes (0.10 - 0.60 /CUMM) 0.1 L 0 L Eosinophils (0 - 5.0 %) 2 Absolute Eosinophils (0.0 - 0.7 /CUMM) 0.1 0.1 Absolute Basophils (0.0 - 0.2 /CUMM) 0 0 Platelet Estimate (ADEQUATE) ADEQUATE DECREASED Polychromasia 1+ 1+ Hypochromic-Microcytic 1+ Poikilocytosis 1+ 1+ Basophilic Stippling SLIGHT Anisocytosis 1+ Ovalocytes 1+ Jim Cells 1+ PUBS MCHC (33.0 - 37.0 G/DL) 34.0 33.1 Other Body Source Fld Total RBCs Counted (%) 100 Last 24 Hours of [place] Results: Sputum culture August 30 positive for Pseudomonas resistant to Ceftazidime Urine culture August 30 negative Blood cultures 2 August 30 negative Assessment/Plan Impression: Recurrent fevers, now low-grade, with increasing white blood cell count now 6 days status post Granger's procedure for a perforated sigmoid colon with abscess formation and with gross purulent peritonitis, with the recent CT scan revealing free fluid within the abdomen, with the possibility of 2 collections, one in the right upper quadrant and one in the left lower quadrant, with plans for aspiration at the bedside later today. She is currently on Zosyn and Fluconazole for multiple organisms isolated from the OR cultures, Clostridium isolated from the blood culture and Pseudomonas isolated from the sputum, with the repeat sputum culture growing Pseudomonas resistant to Zosyn; therefore her antibiotics will need to be adjusted. The pleural effusions could represent empyemas and, if the abdominal fluid collections do not appear infected and her temperatures and/or white blood cell count remain elevated diagnostic thoracenteses will need to be considered. Suggestion: 1. Await CT-guided drainage of the intra-abdominal fluid collections seen on CT 2. Would pursue placement of a PICC so that the right IJ can be removed 3. Consider thoracenteses if above nonrevealing and temperatures/white blood cell count remain elevated 4. Discontinue Zosyn 5. Begin Meropenem 1 g IV every 8 hours 6. Continue Fluconazole
--- NOTE | 2016-09-01 10:45 | RADIOLOGY REPORT ---
EXAMINATION: XR PORTABLE CHEST CLINICAL INFORMATION: Hypoxic respiratory failure. ET tube positioning. COMPARISON: Portable chest prior views 08/31/2016, 08/30/2016, 08/29/2016, 08/28/2016. TECHNIQUE: Portable frontal view of the chest was obtained. FINDINGS: Endotracheal tube tip 5.5 cm above the evelio. Enteric tube is seen coursing into the abdomen with tip beyond the field of view of the exam. Right jugular central venous line is in the distal SVC. Cardiac mediastinal silhouette is normal. Calcification of the aortic arch is seen. There are bilateral small pleural effusions with associated bibasilar opacities, unchanged when compared to the prior exam. No pneumothorax is seen. Bony structures are unremarkable. IMPRESSION: 1. Endotracheal tube tip 5.5 cm above the evelio. 2. Enteric tube extends into the abdomen with tip not included. 3. Right jugular central venous line in distal SVC. 4. Bilateral lower lobe consolidation with associated small pleural effusions, unchanged.
--- NOTE | 2016-09-01 12:49 | PN- General Surgery ---
Surgical Brief Attending Note Brief Attending Note: as per PA note. tube feeds initiated. IR drainage shows serosanguinous fluid in LLQ drain. RUQ drain with christin purulence. culture pending. continue cares. I have also re-reviewed the CT. although report states incisional hernia with bowel, there is not. I explored wound to reconfirm. gas in sq tissues misinterpreted as bowel.
--- NOTE | 2016-09-01 15:00 | RADIOLOGY REPORT ---
EXAMINATION: XR PORTABLE CHEST CLINICAL INFORMATION: PICC line placement COMPARISON: Chest x-ray , 6:[address] abdomen pelvis 08/31/2016 TECHNIQUE: Portable frontal view of the chest was obtained. 2:18 PM FINDINGS: PICC line catheter tip in superior vena cava. Catheter tip is approximately 5 cm proximal to the cavoatrial junction. Right IJ catheter tip in superior vena cava. Endotracheal tube catheter tip 5.3 cm above the evelio. There is haziness of both lung bases similar prior chest x-ray from bilateral pleural effusions and basilar infiltrate/atelectasis. IMPRESSION: PICC line catheter tip in superior vena cava.
--- NOTE | 2016-09-01 15:29 | ULTRASOUND REPORT ---
CLINICAL HISTORY: This patient is a 60 years old Female with history of perforated diverticulitis status post surgery with persistently elevated white blood cell count and fluid collections. The patient has 2 suspicious collections in the perihepatic region of the right upper quadrant and in the left lower quadrant. PROCEDURES: 1. Limited ultrasound of the right and left lower quadrants. 2. Placement of an 8 Fr locking all-purpose drainage catheter under ultrasound guidance in the perihepatic collection. 3. Placement of an 8 Indian locking all-purpose drainage catheter under ultrasound guidance in the left lower quadrant collection. PHYSICIANS: Dr. Alejandro Marin (attending). The attending radiologist was present during the procedure and related imaging, and reviewed the report. MONITORING: Continuous blood pressure, pulse oximetry as well as heartrate monitoring was performed by an independent registered nurse. MEDICATIONS: 1. 25 mL of 1% lidocaine SQ. COMPLICATIONS: None. ESTIMATED BLOOD LOSS: Trace SPECIMENS: 250 mL of purulent fluid from the perihepatic collection and 350 mL of serosanguineous fluid from the left lower quadrant collection. PROCEDURE NOTE: Informed consent was obtained from the patient's sister prior to the procedure. During this process, the procedure and potential alternatives were explained along with the intended outcome and benefits. The risks of the procedure, including the possibility of an unsuccessful procedure, as well as the risk of not doing the procedure, were discussed. The patient's sister was given the opportunity to ask questions regarding the procedure and appeared competent to make decisions. A signed consent form documenting this discussion was placed in the medical record. A time-out procedure was performed. The procedure was performed bedside in the ICU. The patient was in the supine position. A limited ultrasound was performed to localize the collection in the right upper quadrant which demonstrated a complex collection containing septations. An appropriate needle access entry point and trajectory was identified. The right upper abdomen was prepped and draped in usual sterile fashion. The skin and subcutaneous tissues were anesthetized with lidocaine. Under ultrasound guidance, a 5 Indian/19-gauge Yueh needle/catheter was advanced into the fluid collection. Purulent fluid was aspirated. A 0.035 in Amplatz super stiff wire was advanced through the needle and coiled in the fluid collection. The needle was removed and exchanged for serial fascial dilators followed by an 8 Fr locking all-purpose catheter. Catheter position within the fluid collection was confirmed by ultrasound evaluation. The wire was removed from the catheter and the tip was coiled within the fluid collection, again confirmed by ultrasound evaluation. The drain was sutured to skin with 2-0 nylon suture and a StatLock device. Approximately 250 mL of purulent fluid were aspirated. Attention was next turned to the left lower quadrant collection. A limited ultrasound was performed to localize the collection containing septations in the left lower quadrant. An appropriate needle access entry point and trajectory was identified. The left lower abdomen was prepped and draped in usual sterile fashion. The skin and subcutaneous tissues were anesthetized with lidocaine. Under ultrasound guidance, a 5 Indian/19-gauge Skymarkereh needle/catheter was advanced into the fluid collection. Serosanguinous fluid was aspirated. A 0.035 in Amplatz super stiff wire was advanced through the needle and coiled in the fluid collection. The needle was removed and exchanged for serial fascial dilators followed by an 8 Fr locking all-purpose catheter. Catheter position within the fluid collection was confirmed by ultrasound evaluation. The wire was removed from the catheter and the tip was coiled within the fluid collection, again confirmed by ultrasound evaluation. The drain was sutured to skin with 2-0 nylon suture and a StatLock device. Approximately 350 mL of serosanguineous fluid were aspirated. Samples were sent for microbiology. FINDINGS: 1. Fluid collections located in the right perihepatic region and left lower quadrant with ultrasound appearance of complex collections. 2. Successful placement of 8 Fr locking all-purpose drainage catheters into each of the collections. IMPRESSION: Successful drainage of a right upper abdominal and left lower abdominal fluid collections with placement of drainage catheters. PLAN: 1. The tube should be open to external gravity drainage via drainage bag. 2. Tube should be flushed Q shift with 10 mL normal saline. 3. If cultures of the sampled fluid are negative, the catheters can be removed.
[2016-09-01 16:00] VITALS: BP 104/64
--- NOTE | 2016-09-01 18:34 | RADIOLOGY REPORT ---
EXAMINATION: XR PORTABLE CHEST CLINICAL INFORMATION: Triple lumen catheter removed. Evaluate addition of PICC line. COMPARISON: 09/01/2016 at 2:18 PM TECHNIQUE: Portable AP view of the chest was obtained. FINDINGS: Endotracheal tube remains in stable position at approximately 5.5 cm above the evelio. Enteric tube remains in stable position; it extends below the diaphragm and into the proximal stomach. The tip of the right arm peripherally inserted catheter is in the distal superior vena cava. The right internal jugular catheter has been removed. Again noted are bibasilar opacities from pleural effusions and likely atelectasis without appreciable interval change. No pneumothorax or pneumomediastinum. Bones are unremarkable. IMPRESSION: 1. The right IJ catheter has been removed. The right arm peripherally inserted catheter remains in satisfactory position with its tip located in the distal superior vena cava. 2. Small pleural effusions and bibasilar atelectasis.
--- NOTE | 2016-09-01 20:49 | NUR ---
PT OPENS EYES TO VERBAL STIMULI, NOT FOLLOWING COMMANDS AT PRESENT. SOFT BILATERAL WRIST RESTRAINTS IN PLACE. MORPHINE, ATIVAN PRN-SEE EMAR. ORALLY INTUBATED AND VENTED. COARSE BREATH SOUNDS THOUGHOUT BILATERALLY. SUCTIONING FOR SM AMT THICK YELLOW SECREATIONS. SEE FLOW SHEET FOR VS, 02 SATS, I/O'S. MONITOR SHOWS NSR, NO ECTOPY NOTED AT PRESENT. BP STABLE AT PRESENT. ABD SOFT, NONTENDER, NONDISTENDED, POSITIVE BOWEL SOUNDS. COLOSTOMY IN PLACE-STOMA PINK, DRAINING LIQUID GREEN STOOL. NGT IN PLACE-PLACEMENT CONFIRMED BY AIR-ON TUBE FEEDS-TOLERATING WELL AT PRESENT. ABD DRESSING C/D/I. LLQ DRAIN TO GRAVITY-DRAINING MUCUSY SEROSAGINIOUS DRAINAGE. RUQ DRAIN TO GRAVITY-DRAINING THICK GREEN DRAINAGE. TOBAR IN PLACE-DRAINING ADEQUATE AMT OF CLEAR YELLOW URINE AT PRESENT. SKIN INTACT. 4+ BUE EDEMA-WEEPING SEROUS DRAINAGE. 2+ GENERALIZED AND BLE EDEMA NOTED
[2016-09-01 23:00] VITALS: BP 100/60
[2016-09-02 05:09] LABS: ABSOLUTE BASOPHIL COUNT 0 /CUMM (0.0-0.2); ABSOLUTE EOSINOPHIL COUNT 0.1 /CUMM (0.0-0.7); ABSOLUTE GRANULOCYTE CT 32.7 /CUMM (1.4-6.5); ABSOLUTE LYMPH COUNT 0.7 /CUMM (1.2-3.4); ABSOLUTE MONOCYTE COUNT 0.8 /CUMM (0.10-0.60); BASOPHIL % 0 % (0.0-2.0); EOSINOPHIL % 0.3 % (0-5); GRANULOCYTE % 95.6 % (42.2-75.2); HEMATOCRIT 24.3 % (37-47); MEAN CORPUSCULAR HGB 30.9 PG (27.0-31.0); MEAN CORPUSCULAR HGB CONC 33.8 G/DL (33.0-37.0); MEAN CORPUSCULAR VOLUME 91.5 FL (81.0-99.0); MEAN PLATELET VOLUME 10.1 FL (7.4-10.4); PLATELET COUNT 188 /CUMM (130-400); RBC DISTRIBUTION WIDTH 15.9 % (11.5-14.5); RED BLOOD CELL CT 2.65 /CUMM (4.20-5.40)
[2016-09-02 05:36] LABS: WHITE BLOOD CELL COUNT 34.3 /CUMM (4.8-10.8)
--- NOTE | 2016-09-02 05:51 | PN- General Surgery ---
Subjective Subjective: The patient was seen this morning postoperatively day #7. She remains intubated and lightly sedated but responsive to questioning with nodding her head. She appears comfortable and there were no issues overnight per nursing. She is currently tolerating tube feeds advancements with minimal residuals answer colostomy has positive stool and gas in the bag. In the bag. Objective Vital Signs and I&Os Vital Signs Date Time Temp Pulse Resp B/P B/P Pulse O2 O2 Flow FiO2 Mean Ox Delivery Rate 09/02 0358 50 05/ 0124 50 09/02 0000 97 Ventilator 50% 05/25 2300 98.1 91 26 100/60 97 Ventilator 50% 05/25 2245 50 05/ 2000 92 Ventilator 50% 05/25 1945 99.5 05/25 1916 50 05/25 1846 100.4 05/ 1605 50 05/ 1600 93 Ventilator 50% 05/25 1600 98.9 86 24 104/64 94 Ventilator 50% 05/25 1424 50 05/ 1226 50 05/ 1200 94 Ventilator 50% 05/25 0810 50 05/ 0800 94 Ventilator 50% 05/25 0800 98.8 96 20 106/64 92 Ventilator 50% 05/25 0600 91 Ventilator 50% / 0559 50 Intake & Output / 0800 / 0000 05/ 1600 /25 0800 / 0000 08/31 1600 Intake Total 950 1665 1011 1100 1935.0 Output Total 505 1480 475 605 870 Balance 445 185 401 478 2266.0 Intake, Blood 400 Product Intake, IV 788 1612 921 864 8737 Intake, Lipid 61.0 Intake, Oral 0 Intake, Other 30 Intake, 304 TPN/PPN Intake, Tube 102 23 101 71 Feeding Intake, Tube 60 85 60 Irrigant Output, 80 775 Drainage Output, 30 200 Gastric Drainage Output, Stool 75 300 125 50 120 Output, Urine 350 375 350 555 550 Patient 165 lb 165 lb Weight Weight Bed scale Bed scale Measurement Method Physical Exam: Gen.: Alert and intubated in no obvious distress Skin: Warm and dry Abdomen: Soft, mildly distended, mild generalized tenderness which is increased around the surgical incision. There is no rebound or guarding and bowel sounds are positive. Midline incision with surgical clips in place and mild surrounding erythema. The inferior aspect was repacked this morning with minimal serous drainage on the dressing. The colostomy is pink and viable with positive output and gas in the bag. Right upper quadrant IR drain with seropurulent drainage in the bag. Left lower quadrant IR drain with serosanguineous drainage in the bag. Extremities: Bilateral lower extremities are warm without calf tenderness. Assessment/Plan Assessment/Plan Assessment: 60-year-old female status post Granger's procedure for perforated diverticulitis with fecal peritonitis postoperative day #7. The patient is slowly progressing and her bowel function has slowly returned. She is tolerating tube feeds advancements and has remained afebrile overnight with a white count that is beginning to trend down status post placement of percutaneous IR drains. The patient currently remains ventilator dependent and is receiving nutritional support via tube feeds. Recommendations: Daily wound and ostomy care Total respiratory care and continued attempts to wean and eventually extubate Follow-up morning laboratory studies and recent cultures from IR drainage Antibiotics per infectious disease recommendations Strict I's and O's GI and DVT prophylaxis Advanced tube feeds as tolerated to goal Follow-up morning laboratory studies and radiologic imaging Percutaneous drain management per interventional radiology Continue care per primary team and various consultation recommendations
--- NOTE | 2016-09-02 06:54 | PN- Resident CRCU ---
Subjective HPI/CRCU Issues: Ms. Camacho seen and examined at bedside this AM. She remains intubated but it more responsive to stimulus and is able to answer questions by nodding. She has T max 100.4 and leukocytosis has improved after switching to meropenem and draining of RUQ/LLQ/ 24 Hour Events: Telemetry monitoring: No events. Vital signs last 24 hours: T 98.1-99.5, HR 86-99, RR 20-31, BP 82-136/46-77, O2 88-97% on AC 20 TV 450 FiO2 50% 5 PEEP. Objective Vital Signs & I&O Last 8 Hrs of Vitals and I&O: Intake & Output 09/02 1600 Intake Total Output Total Balance Patient 165 lb Weight Weight Bed scale Measurement Method Exam General Appearance: well developed/nourished, no apparent distress, sedated, intubated Head: atraumatic, normal appearance Ears, Nose, Throat: hearing grossly normal, moist mucus membranes Neck: normal inspection, supple Respiratory: Rhonchi bilateral lung rosenbaum but aeration improving Cardiovascular: regular rate/rhythm Gastrointestinal: Ostomy pink with good stool output, midline incision covered by dry clean gauze Extremities: Bilateral upper extremity pitting edema Cranial Nerves: normal hearing, PERRL Skin: Normal color, clean and dry around midline incision Skin Temp/Moisture Exam: Warm/Dry Nutrition Nutrition: tube feeding Current Medications: Current Medications Sig/Ry Start time Last Medication Dose Route Stop Time Status Admin Acetaminophen 1,000 MG Q6P PRN 08/27 0230 AC 09/01 N/A 1 UNIT IV 1846 Albuterol Sulfate 3 ML EVERY 4 HRS/AWAKE 09/01 2000 AC 09/02 INH 1202 Albuterol Sulfate 3 ML BID 08/28 2200 DC 09/01 INH 0914 Albuterol Sulfate 3 ML Q4H PRN 08/27 1000 AC 08/28 INH 1309 Chlorhexidine 15 ML TID 08/29 1000 AC 09/02 Gluconate PO 0807 Dextrose/Sodium 1,000 ML Q13H 08/30 0445 AC 09/02 Chloride IV 0646 Enoxaparin Sodium 40 MG DAILY 09/02 1000 DC 09/02 SC 0806 Fentanyl Citrate 1,000 MCG Q24H 09/02 0945 AC 09/02 Dextrose/Water 250 ML IV 1035 Fluconazole 400 MG Q24 08/30 1045 AC 09/02 Sodium Chloride 200 ML IV 0806 Lidocaine 1 ML .STK-MED ONE 09/01 1340 DC ID 09/01 1341 Lorazepam 2 MG Q4-PRN PRN 08/31 1730 AC 09/02 IV 0911 Magnesium Sulfate 1 GM ONCE ONE 09/02 0700 DC 09/02 Dextrose/Water 100 ML IV 09/02 1059 0911 Meropenem 1 GM IQ8 09/01 1600 AC 09/02 IV 0755 Morphine Sulfate 2 MG Q2P PRN 08/26 2200 AC 09/02 IV 0745 Pantoprazole Sodium 40 MG DAILY 08/27 1000 AC 09/02 IV 0807 Potassium Chloride 20 MEQ ONCE ONE 09/02 0700 DC 09/02 IV 09/02 0701 0755 CXR Findings: IMPRESSION: 1. Endotracheal tube 5 cm above evelio. 2. No change in bilateral pleural effusions and left retrocardiac atelectasis or consolidation. Impression/Plan Impression/Problem List Impression: Ms. Camacho is a 60 year old female with PMH anxiety, depression, COPD , prior episode of severe clostridium difficile infection in 2016, tobacco abuse and gastritis who presented to the [place] ED after one week of altered mental status, decreased oral intake and possible withdrawl symptoms as her clonazepam was being titrated off per doctor instructions. She was found to be hypotensive, febrile and altered while in the [facility] ED. In the ED: Vital signs showed Tmax 101.5, HR 116, RR 20, BP 93/62 and O2 saturation 90% on room air. Labs were significant for WBC 18.1 with 37 bands, H&H 13.7/41.6, Plt 623, Na 143 , K 3.6, Cl 107, HCO3 16, BUN/cre 28/1.8, Glu 98, Lactic acid 2.9, AST 62, ALT 42, CK 370, troponin 0.05, proBNP 02199, amylase 153, lipase <10, and UA with high protein, positive nitrite, high urobilinogen, 50 WBCs, moderate bacteria and large hgb. CXR showed no acute pulmonary process. Head CT was negative for acute pathology. Patient was admitted to the ICU and the following is the current management: 1. Severe sepsis secondary to peritonitis from perforated sigmoid colon with abscess formation * Patient febrile, + leukocytosis with bandemia, hypotensive and tachycardic on admission * Post-op day #7 from Harmann's procedure with Dr. Marcello MD; patient remains intubated off pressors or sedation, ostomy pink with + green liquid stool * Patient s/p IR guided drainage of RUQ and LLQ fluid with drains in place * RUQ draining purulent material; growing gram + cocci so far, follow up final cultures * ID consult appreciated, continue to follow recommendations * LRC shows pseudomonas resistant to zosyn; continue IV meropenem and continue IV fluconazole to 400 g IV Q24 hours * Continue D51/2NS at 75 cc/h to maintain CVP 8-10; continue tube feeds * Surgery follow up appreciated with Dr. Marcello MD * IV protonix while intubated 2. Metabolic encephalopathy * On admission, likely secondary to severe sepsis from sigmoid perforation/ peritonitis * CT head negative for acute intracranial pathology * Hold all sedatives, hold off all home psych meds until mental status improves 3. Acute hypoxemic respiratory failure * Patient initially placed on non-rebreather but was transitioned to high flow nasal cannula/ BiPAP due to tachypnea/apparent respiratory distress * Patient tolerated BiPAP well but was intubated for Ho's procedure; FiO2 requirements stable at 50% with CXR showing biabilsar nonspecific airpsace disease * Aspiration precautions * No CPAP trial until FiO2 at least 40% * Noted bilateral pleural effusions on CT chest * Patient having US to examine size of pleural effusions, if tapable will have IR drain today 4. SIERRA * Likely prerenal in the setting of severe sepsis * Improved, continue IVF hydration * Monitor renal function and electrolytes with ICU bundle * Monitor urine output, strict Is/Os 5. Sinus tachycardia with T wave changes, IMPROVED * Continuous telemetry monitoring * Troponins negative x 3 * Echo showed normal global LV function without wall motion abnormalities and normal pulm artery systolic pressure * Monitor vital signs closely 6. Thrombocytopenia, IMPROVIN * Plt this AM increased to 188 (623 on admission) * Likely 2/2 coagulopathly from sepsis * 4Ts score placed patient at low risk for HIT (<5%) * Will resume DVTP after thoracentesis as Plt now in acceptable range 7. Acute blood loss anemia * H&H stable at 8.2/24.3 this AM * Total 1 U PRBC given since admission * Follow up CBC daily FULL CODE Diet: Tube feeds DVTP: ALPS Pain: Fentanyl drip Problem List: 1. Diverticulosis of colon 2. Malnutrition 3. History of adenomatous polyp of colon 4. Status post Ho's procedure 5. History of Clostridium difficile infection 6. Lactic acidosis 7. Hypotension 8. Perforated viscus 9. Severe sepsis Pain Ratin Tomorrow's Labs & Rationales: CBC (leukocytosis) ICU bundle (hypokalemia) Plan DVT/Prophylaxis: pharmacological
--- NOTE | 2016-09-02 07:11 | RADIOLOGY REPORT ---
EXAMINATION: XR PORTABLE CHEST CLINICAL INFORMATION: ET tube placement. Presumptive diagnosis: Hypoxic respiratory failure. COMPARISON: Portable chest 09/01/2016. TECHNIQUE: Portable AP view of the chest was obtained. FINDINGS: The endotracheal tube terminates 5 cm above the evelio. The right PICC line again terminates in the mid SVC. Bilateral pleural effusions are unchanged. There is no change in left retrocardiac atelectasis or consolidation. IMPRESSION: 1. Endotracheal tube 5 cm above evelio. 2. No change in bilateral pleural effusions and left retrocardiac atelectasis or consolidation.
--- NOTE | 2016-09-02 07:19 | NUR ---
PT SLEPT ON AND OFF DURING THE NIGHT. MEDICATED WITH MORPHINE 3 TIMES, ATIVAN 2MG IV 2 TIMES DURING SHIFT-SEE EMAR. SUCTIONING FOR SMALL AMT OF THICK YELLOW SECREATIONS. COARSE BREATH SOUNDS BILATERALLY. NSR-ST-HR 90-100'S FOR SHIFT, NO ECTOPY. BP 90-120'S FOR SHIFT. BUE REMAIN EDEMATOUS, WEEPING SEROUS DRAINAGE. TOLERATING TUBE FEEDS WELL THOUGHOUT SHIFT. RUQ PERCUTENOUS DRAINING WITH PURULENT GREEN DRAINAGE, LLQ PERCUTENOUS DRAINING SEROSAGINIOUS DRAINAGE. COLOSTOMY DRAINING DARK GREEN LIQUID STOOL-TRACE GUIAIC POSITIVE. INTACT BLISTERS ON LOWER RT ABD. ABD DSG CHANGED BY RODOLFO WILLS. ADEQUATE URINE OUTPUT OF SHIFT. NO OTHER CHANGES IN PT ASSESSMENTS THOUGHOUT SHIFT
[2016-09-02 08:00] VITALS: BP 112/64
--- NOTE | 2016-09-02 08:57 | PN- CRCU ---
See Addendum Subjective HPI/Critical Care Issues: pt seen and examined wbc 34.3 on meropenem 45%fio2 mechanically ventilated s/p right upper abd and left lower abdominal fluid collection drainage and catheter placement Objective Current Medications: Current Medications Sig/Ry Start time Last Medication Dose Route Stop Time Status Admin Acetaminophen 1,000 MG Q6P PRN 08/27 0230 AC 09/01 N/A 1 UNIT IV 1846 Albuterol Sulfate 3 ML EVERY 4 HRS/AWAKE 09/01 2000 AC 09/02 INH 0845 Albuterol Sulfate 3 ML BID 08/28 2200 DC 09/01 INH 0914 Albuterol Sulfate 3 ML Q4H PRN 08/27 1000 AC 08/28 INH 1309 Chlorhexidine 15 ML TID 08/29 1000 AC 09/02 Gluconate PO 0807 Dextrose/Sodium 1,000 ML Q13H 08/30 0445 AC 09/02 Chloride IV 0646 Enoxaparin Sodium 40 MG DAILY 09/02 1000 AC 09/02 SC 0806 Fluconazole 400 MG Q24 08/30 1045 AC 09/02 Sodium Chloride 200 ML IV 0806 Lidocaine 1 ML .STK-MED ONE 09/01 1340 DC ID 09/01 1341 Lorazepam 2 MG Q4-PRN PRN 08/31 1730 AC 09/02 IV 0519 Magnesium Sulfate 1 GM ONCE ONE 09/02 0700 AC Dextrose/Water 100 ML IV 09/02 1059 Magnesium Sulfate 1 GM Q2H 09/01 0700 DC 09/01 Dextrose/Water 100 ML IV 09/01 1059 1322 Meropenem 1 GM IQ8 09/01 1600 AC 09/02 IV 0755 Morphine Sulfate 2 MG Q2P PRN 08/26 2200 AC 09/02 IV 0745 Pantoprazole Sodium 40 MG DAILY 08/27 1000 AC 09/02 IV 0807 Piperacillin Sod/ 4.5 GM Q6H 08/29 1400 DC 09/01 Tazobactam Sod IV 0900 Sodium Chloride 100 ML Potassium Chloride 20 MEQ ONCE ONE 09/02 0700 DC 09/02 IV 09/02 0701 0755 Vital Signs & I&O Last 24 Hrs of Vitals and I&O: Vital Signs Date Time Temp Pulse Resp B/P B/P Pulse O2 O2 Flow FiO2 Mean Ox Delivery Rate 09/02 0837 45 09/02 0555 50 09/02 0400 93 Ventilator 50% 09/02 0358 50 09/02 0124 50 09/02 0000 97 Ventilator 50% 09/01 2300 98.1 91 26 100/60 97 Ventilator 50% 09/01 2245 50 09/02 1999 92 Ventilator 50% 09/01 1945 99.5 09/01 1916 50 09/01 1846 100.4 09/01 1605 50 09/01 1600 93 Ventilator 50% 09/01 1600 98.9 86 24 104/64 94 Ventilator 50% 09/01 1424 50 09/01 1226 50 09/01 1200 94 Ventilator 50% Intake & Output 09/02 1600 09/02 0800 09/02 0000 Intake Total 893 950 Output Total 645 505 Balance 248 445 Intake, IV 576 788 Intake, Tube 172 102 Feeding Intake, Tube 145 60 Irrigant Output, 160 80 Drainage Output, Stool 50 75 Output, Urine 435 350 Patient 165 lb Weight Weight Bed scale Measurement Method Exam Other Physical Findings: gen lethargic, minimally responsive heent intubated cvs s1, s2 lungs transmitted abd soft, drains intact ext no edema Results Last 24 Hrs of Lab Results: Laboratory Tests 09/02/16 0416: Anion Gap 6, Estimated GFR > 60, Glucose 100 H, Calcium 6.9 L, Phosphorus 3.7, Magnesium 1.8, Total Bilirubin 0.5, AST 15, ALT 29, Albumin 1.4 L, CBC w Diff MAN DIFF ORDERED, RBC 2.65 L, MCV 91.5, MCH 30.9, RDW 15.9 H, MPV 10.1, Gran % 95.6 H, Lymphocytes % 1.9 L, Monocytes % 2.2, Eosinophils % 0.3, Basophils % 0 L, Absolute Granulocytes 32.7 H, Segmented Neutrophils 95 H, Band Neutrophils 2, Absolute Lymphocytes 0.7 L, Lymphocytes 1 L, Monocytes 2, Absolute Monocytes 0.8 H, Absolute Eosinophils 0.1, Absolute Basophils 0, Platelet Estimate ADEQUATE, Polychromasia 1+, Target Cells RARE, Ovalocytes FEW, Stomatocytes FEW, PUBS MCHC 33.8, Fld Total RBCs Counted 100 09/01/16 1656: Fluid Albumin Cancelled 09/01/16 1140: Fluid WBC , Fld Total RBCs Counted 09/01/16 1140: Lymphocytes 4, % Normal PMNs 89, Misc Hematology Test , Fluid Glucose 60, Fluid Total Protein < 2.0, Fluid Albumin < 1.0, Fluid LDH 1115, Fluid Amylase 219 09/01/16 1100: Fluid WBC , Fld Total RBCs Counted 09/01/16 1100: Misc Hematology Test , Fluid Glucose < 20, Fluid Total Protein 2.3, Fluid Albumin 1.0, Fluid LDH 06008, Fluid Amylase 41 Impression/Plan Impression/Plan Impression/Plan: Impression 60 year old woman * pericolic abscess s/p drainage and sigmoid colectomy with end colostomy, now s /p drainage catheter placement by IR for fluid collections in right upper and left lower abdomen * malnutrition * thrombocytopenia improved * abdominal fluid and pleural effusions Plan Respiratory -TRC/Nebs -aspiration precautions -reduce fio2 as tolerated ID -continue abx -ID consultation follow up -on meropenem and fluconazole -plan for IR to sample fluid, if abdominal tap is equivocal, can pursue a thoracentesis CVS -monitor hemodynamics -monitor cvp -plan for picc line Heme -monitor cbc, coags -thrombocytopenia improved now on lovenox for DVT prophylaxis Metabolic -SIERRA resolved -cont hydration Alimentary -aspiration precautions -f/u surgery for nutrition Neuro -psych upon extubation follow up -anxiolysis DVT prophylaxis at all times - lovenox TTS 35 min
--- NOTE | 2016-09-02 09:54 | PN- Infect Dx ---
Subjective Subjective: MAXIMUM TEMPERATURE 100.4. She is unable to offer any complaints. Objective Last 24 Hrs of Vital Signs/I&O Vital Signs Date Time Temp Pulse Resp B/P B/P Pulse O2 O2 Flow FiO2 Mean Ox Delivery Rate 09/02 0837 45 09/02 0555 50 09/02 0400 93 Ventilator 50% 09/02 0358 50 09/02 0124 50 09/02 0000 97 Ventilator 50% 09/01 2300 98.1 91 26 100/60 97 Ventilator 50% 09/01 2245 50 09/01 2000 92 Ventilator 50% 09/01 1945 99.5 09/01 1916 50 09/01 1846 100.4 09/01 1605 50 09/01 1600 93 Ventilator 50% 09/01 1600 98.9 86 24 104/64 94 Ventilator 50% 09/01 1424 50 09/01 1226 50 09/01 1200 94 Ventilator 50% Intake & Output 09/02 1600 09/02 0800 09/02 0000 Intake Total 893 950 Output Total 645 505 Balance 248 445 Intake, IV 576 788 Intake, Tube 172 102 Feeding Intake, Tube 145 60 Irrigant Output, 160 80 Drainage Output, Stool 50 75 Output, Urine 435 350 Patient 165 lb Weight Weight Bed scale Measurement Method Physical Exam Other Physical Findings: She appears more awake and was reportedly responsive earlier today Lungs bilateral rhonchi Heart regular rhythm with no murmur Abdomen is distended, with no obvious tenderness, positive bowel sounds; semiformed stool in the colostomy; right upper quadrant drain with seropurulent fluid; left lower quadrant drain with serosanguineous fluid Extremities 1+ edema both lower extremities; PICC in place in the right upper extremity Fulton catheter remains in place Results Last 24 Hours of Lab Results: Laboratory Tests 09/02 09/01 09/01 0416 1656 1140 Chemistry Sodium (137 - 145 mmol/L) 137 Potassium (3.5 - 5.1 mmol/L) 3.8 Chloride (98 - 107 mmol/L) 114 H Carbon Dioxide (22 - 30 mmol/L) 17 L Anion Gap (5 - 16) 6 BUN (7 - 17 mg/dL) 12 Creatinine (0.5 - 1.0 mg/dL) 0.8 Estimated GFR (>60 ml/min) > 60 Glucose (65 - 99 mg/dL) 100 H Calcium (8.4 - 10.2 mg/dL) 6.9 L Phosphorus (2.5 - 4.5 mg/dL) 3.7 Magnesium (1.6 - 2.3 mg/dL) 1.8 Total Bilirubin (0.2 - 1.3 mg/dL) 0.5 AST (14 - 36 U/L) 15 ALT (9 - 52 U/L) 29 Albumin (3.5 - 5.0 g/dL) 1.4 L Hematology CBC w Diff MAN DIFF ORDERED WBC (4.8 - 10.8 /CUMM) 34.3 *H RBC (4.20 - 5.40 /CUMM) 2.65 L Hgb (12.0 - 16.0 G/DL) 8.2 L Hct (37 - 47 %) 24.3 L MCV (81.0 - 99.0 FL) 91.5 MCH (27.0 - 31.0 PG) 30.9 RDW (11.5 - 14.5 %) 15.9 H Plt Count (130 - 400 /CUMM) 188 MPV (7.4 - 10.4 FL) 10.1 Gran % (42.2 - 75.2 %) 95.6 H Lymphocytes % (20.5 - 51.1 %) 1.9 L Monocytes % (1.7 - 9.3 %) 2.2 Eosinophils % (0 - 5 %) 0.3 Basophils % (0.0 - 2.0 %) 0 L Absolute Granulocytes (1.4 - 6.5 /CUMM) 32.7 H Segmented Neutrophils (42.2 - 75.2 %) 95 H Band Neutrophils (0.0 - 5.0 %) 2 Absolute Lymphocytes (1.2 - 3.4 /CUMM) 0.7 L Lymphocytes (20.5 - 51.1 %) 1 L Monocytes (1.7 - 9.3 %) 2 Absolute Monocytes (0.10 - 0.60 /CUMM) 0.8 H Absolute Eosinophils (0.0 - 0.7 /CUMM) 0.1 Absolute Basophils (0.0 - 0.2 /CUMM) 0 Platelet Estimate (ADEQUATE) ADEQUATE Polychromasia 1+ Target Cells RARE Ovalocytes FEW Stomatocytes FEW PUBS MCHC (33.0 - 37.0 G/DL) 33.8 Other Body Source Fluid WBC (0 - 5 /CUMM) Fld Total RBCs Counted (%) 100 Fluid Albumin Cancelled 09/01 09/01 09/01 1140 1100 1100 Hematology Lymphocytes (%) 4 % Normal PMNs (%) 89 Misc Hematology Test (%) Other Body Source Fluid WBC (0 - 5 /CUMM) Fld Total RBCs Counted (0 /CUMM) Fluid Glucose (mg/dL) 60 < 20 Fluid Total Protein (g/dL) < 2.0 2.3 Fluid Albumin (g/dL) < 1.0 1.0 Fluid LDH (U/L) 1115 60748 Fluid Amylase (U/L) 219 41 Last 24 Hours of [place] Results: Liver fluid pocket aspiration culture September 01 negative, with gram stain revealing moderate white blood cells and few gram-positive cocci Left abdominal fluid aspiration culture September 01 negative with gram stain revealing few white blood cells and no organisms Recent Imaging Studies: Chest x-ray September 02 bilateral pleural effusions, right greater than left, with a left retrocardiac density unchanged Assessment/Plan Impression: Some improvement status post aspiration of purulent fluid from the right upper quadrant and serosanguineous fluid from the left lower quadrant yesterday, with cultures from both of these areas so far negative, with temperatures just low- grade and white blood cell count slightly decreased on Meropenem and Fluconazole now 1 week status post Granger's procedure for a perforated sigmoid colon. She remains significantly hypoxic, with Pseudomonas isolated from the sputum culture and with bilateral pleural effusions and, given her persistent, though low-grade , fevers, and leukocytosis feel that thoracentesis, perhaps bilateral, should be considered. Suggestion: 1. Would repeat CT of the chest and pursue thoracentesis, possibly bilateral, if effusions are significant 2. Follow-up cultures from recent aspirations 3. Continue Meropenem and Fluconazole
--- NOTE | 2016-09-02 10:34 | PN- General Surgery ---
Surgical Brief Attending Note Brief Attending Note: Purulence from RUQ drain is growing g+cocci. LLQ drain is serous and sterile thus far. It can be removed when cultures negative. Overall improved with oxygenation, mental status and tolerating tube feeds. WBC remains >30k, agree with thoracentesis.
[2016-09-02 12:11] LABS: PT 14.1 SEC (9.4-12.5)
--- NOTE | 2016-09-02 15:08 | ULTRASOUND REPORT ---
EXAMINATION: US PLEURAL EFFUSION CLINICAL INFORMATION: Respiratory failure COMPARISON: Same day chest x-ray and chest CT 08/26/2016 TECHNIQUE: Grayscale imaging was obtained of both lung bases. FINDINGS: Small to moderate right-sided pleural effusion. Small left-sided pleural effusion. IMPRESSION: Small to moderate right-sided pleural effusion. Small left-sided pleural effusion.
[2016-09-02 16:00] VITALS: BP 110/62
--- NOTE | 2016-09-02 16:14 | RADIOLOGY REPORT ---
EXAMINATION:\H\ \N\XR CHEST CLINICAL INFORMATION: Right-sided pneumothorax, post right-sided thoracentesis. COMPARISON: Chest x-ray 09/02/2016, 6:24 AM TECHNIQUE: Frontal portable view of the chest was obtained. 3:46 PM FINDINGS: The volume of the right pleural effusion has diminished since the prior chest x-ray today postthoracentesis. There is no pneumothorax. The volume of the left pleural effusion and density left lung base unchanged since prior chest x-ray. Right-sided PICC line catheter tip in superior vena cava. The catheter tip now at the level of the aortic arch without 4 cm proximal from the cavoatrial junction. The catheter is been pulled back slightly. Endotracheal tube catheter approximate 4.7 cm above the evelio. IMPRESSION: Status post ultrasound-guided right thoracentesis with decrease findings a right pleural effusion. No pneumothorax.
--- NOTE | 2016-09-02 16:34 | ULTRASOUND REPORT ---
PROCEDURE: Thoracentesis CLINICAL INFORMATION: Pleural Effusion COMPARISON: Same day chest x-ray and chest ultrasound TECHNIQUE: Direct ultrasound guided thoracentesis using a 5 Somali Yueh catheter. FINDINGS: Informed consent was obtained from the patient's sister prior to the procedure. During this process, the procedure alternatives were explained, along with the intended outcome and benefits. The risks of the procedure, as well as the risk of not doing the procedure, was discussed. The patient's sister was given the opportunity to ask questions regarding the procedure. A consent form which documents this discussion was placed in the medical record. A timeout procedure was performed. Ultrasound evaluation of the chest for pleural fluid was performed. A small to moderate pleural effusion is noted on the right side. Using standard interventional and sterile techniques, lidocaine was used to anesthetize the region. A 5 Somali Yueh catheter was introduced into the right pleural fluid using standard safety needle technique. Approximately 660 mL of light yellow fluid was removed into the Vacutainer bottles. The catheter was then removed. Good hemostasis was achieved. The patient tolerated the procedure well. A sterile dressing was placed. The patient was discharged from the department in stable condition. Postprocedure x-ray demonstrated increased aeration of the right hemithorax. No pneumothorax. Fluid was sent for requested analysis. COMPLICATIONS: None. IMPRESSION: Successful ultrasound-guided thoracentesis of 660 mL of fluid.
[2016-09-02 22:19] LABS: ABSOLUTE BASOPHIL COUNT 0 /CUMM (0.0-0.2); ABSOLUTE EOSINOPHIL COUNT 0.1 /CUMM (0.0-0.7); ABSOLUTE GRANULOCYTE CT 32.7 /CUMM (1.4-6.5); ABSOLUTE LYMPH COUNT 0.7 /CUMM (1.2-3.4); ABSOLUTE MONOCYTE COUNT 0.4 /CUMM (0.10-0.60); BASOPHIL % 0 % (0.0-2.0); EOSINOPHIL % 0.4 % (0-5); GRANULOCYTE % 96.6 % (42.2-75.2); MEAN CORPUSCULAR HGB 30.9 PG (27.0-31.0); MEAN CORPUSCULAR HGB CONC 33.5 G/DL (33.0-37.0); MEAN CORPUSCULAR VOLUME 92.2 FL (81.0-99.0); PLATELET COUNT 222 /CUMM (130-400); RED BLOOD CELL CT 2.61 /CUMM (4.20-5.40)
[2016-09-02 22:26] LABS: WHITE BLOOD CELL COUNT 33.9 /CUMM (4.8-10.8)
[2016-09-03] VITALS: BP 112/60
[2016-09-03 04:32] LABS: HEMATOCRIT 24.4 % (37-47); MEAN CORPUSCULAR HGB 30.2 PG (27.0-31.0); MEAN CORPUSCULAR VOLUME 91.7 FL (81.0-99.0); MEAN PLATELET VOLUME 10.1 FL (7.4-10.4); PLATELET COUNT 236 /CUMM (130-400); RBC DISTRIBUTION WIDTH 15.6 % (11.5-14.5); RED BLOOD CELL CT 2.66 /CUMM (4.20-5.40)
[2016-09-03 04:41] LABS: WHITE BLOOD CELL COUNT 37.8 /CUMM (4.8-10.8)
--- NOTE | 2016-09-03 05:48 | PN- General Surgery ---
Subjective Subjective: Remains intubated in ICU. +ostomy fxn. Tolerating TF. R thoracentesis yesterday. Leukocytosis worsening. Lowgrade temps. Objective Vital Signs and I&Os Vital Signs Date Time Temp Pulse Resp B/P B/P Pulse O2 O2 Flow FiO2 Mean Ox Delivery Rate 09/03 0400 93 Ventilator 45% 09/03 0321 45 09/03 0105 45 09/03 0000 90 Ventilator 45% 09/03 0000 99.0 100 26 112/60 90 Ventilator 45% 09/02 2218 45 09/02 2030 45 09/02 2000 90 Ventilator 45% 09/02 1630 45 09/02 1600 97.9 88 22 110/62 97 Ventilator 45% 09/02 1600 90 Ventilator 45% 09/02 1424 45 09/02 1331 Ventilator 60% 09/02 1200 94 Ventilator 45% 09/02 1153 45 09/02 0837 45 09/02 0800 98.5 96 23 112/64 94 Ventilator 50% 09/02 0800 94 Ventilator 50% 09/02 0555 50 Intake & Output 09/03 0800 09/03 0000 09/02 1600 09/02 0800 09/02 0000 09/01 1600 Intake Total 1313 1593 588 855 2005 Output Total 495 1265 347 846 0674 Balance 818 328 248 445 185 Intake, IV 795 1105 327 339 2279 Intake, Oral 0 Intake, Other 145 30 Intake, Tube 398 323 172 102 23 Feeding Intake, Tube 120 20 145 60 Irrigant Output, 25 100 160 80 775 Drainage Output, 0 30 Gastric Drainage Output, Other 660 Output, Stool 20 80 50 75 300 Output, Urine 450 425 435 350 375 Patient 165 lb 165 lb Weight Weight Bed scale Bed scale Measurement Method Physical Exam: GEN: intubated, CARD: S1S2 RRR PULM: coarse throughout ABD: obese, soft, midline with khloe- clip erythema, inferior portion opened/ clean with gauze packing, stoma retracted but pink, +green liquid stool, RUQ drain with seropurulent drainage, LLQ drain serosang drainage EXT: +edema bl le, alps on bl Current Medications: Current Medications Sig/Ry Start time Last Medication Dose Route Stop Time Status Admin Acetaminophen 1,000 MG Q6P PRN 08/27 0230 AC 09/01 N/A 1 UNIT IV 1846 Albuterol Sulfate 3 ML EVERY 4 HRS/AWAKE 09/01 2000 AC 09/02 INH 1628 Albuterol Sulfate 3 ML Q4H PRN 08/27 1000 AC 08/28 INH 1309 Chlorhexidine 15 ML TID 08/29 1000 AC 09/02 Gluconate PO 211 Dextrose/Sodium 1,000 ML Q13H 08/30 0445 AC 09/02 Chloride IV 211 Enoxaparin Sodium 40 MG DAILY 09/03 1000 AC SC Enoxaparin Sodium 40 MG DAILY 09/02 1000 DC 09/02 SC 0806 Fentanyl Citrate 1,000 MCG Q10H 09/02 2000 AC 09/02 Dextrose/Water 250 ML IV 211 Fentanyl Citrate 1,000 MCG Q24H 09/02 0945 DC 09/02 Dextrose/Water 250 ML IV 09/03 1999 103 Fluconazole 400 MG Q24 08/30 1045 AC 09/02 Sodium Chloride 200 ML IV 0806 Lorazepam 2 MG Q4-PRN PRN 08/31 1730 AC 09/03 IV 0430 Magnesium Oxide 400 MG ONE ONE 09/02 224 DC 09/02 PO 09/02 224 2318 Magnesium Sulfate 1 GM ONCE ONE 09/02 0700 DC 09/02 Dextrose/Water 100 ML IV 09/02 1059 0911 Meropenem 1 GM IQ8 09/01 1600 AC 09/02 IV 2318 Morphine Sulfate 2 MG Q2P PRN 08/26 2200 DC 09/02 IV 0745 Pantoprazole Sodium 40 MG DAILY 08/27 1000 AC 09/02 IV 0807 Potassium Chloride 40 MEQ ONCE ONE 09/02 2244 DC 09/02 PO 09/02 224 2318 Potassium Chloride 20 MEQ ONCE ONE 09/02 0700 DC 09/02 IV 09/02 0701 0755 Results Last 48 Hours of Labs: Laboratory Tests 09/03 09/02 0345 2130 Chemistry Sodium (137 - 145 mmol/L) 134 L 133 L Potassium (3.5 - 5.1 mmol/L) 4.2 3.6 Chloride (98 - 107 mmol/L) 111 H 110 H Carbon Dioxide (22 - 30 mmol/L) 17 L 18 L Anion Gap (5 - 16) 6 5 BUN (7 - 17 mg/dL) 10 11 Creatinine (0.5 - 1.0 mg/dL) 0.7 0.7 Estimated GFR (>60 ml/min) > 60 > 60 Glucose (65 - 99 mg/dL) 97 104 H Calcium (8.4 - 10.2 mg/dL) 6.8 L 6.9 L Phosphorus (2.5 - 4.5 mg/dL) 3.6 3.6 Magnesium (1.6 - 2.3 mg/dL) 1.7 1.8 Total Bilirubin (0.2 - 1.3 mg/dL) 0.4 0.3 AST (14 - 36 U/L) 14 15 ALT (9 - 52 U/L) 35 37 Albumin (3.5 - 5.0 g/dL) 1.5 L 1.5 L Hematology CBC w Diff MAN DIFF ORDERED NO MAN DIFF REQ WBC (4.8 - 10.8 /CUMM) 37.8 *H 33.9 *H RBC (4.20 - 5.40 /CUMM) 2.66 L 2.61 L Hgb (12.0 - 16.0 G/DL) 8.0 L 8.1 L Hct (37 - 47 %) 24.4 L 24.0 L MCV (81.0 - 99.0 FL) 91.7 92.2 MCH (27.0 - 31.0 PG) 30.2 30.9 RDW (11.5 - 14.5 %) 15.6 H 16.0 H Plt Count (130 - 400 /CUMM) 236 222 MPV (7.4 - 10.4 FL) 10.1 10.0 Gran % (42.2 - 75.2 %) 96.6 H Lymphocytes % (20.5 - 51.1 %) 1.9 L Monocytes % (1.7 - 9.3 %) 1.1 L Eosinophils % (0 - 5 %) 0.4 Basophils % (0.0 - 2.0 %) 0 L Absolute Granulocytes (1.4 - 6.5 /CUMM) 32.7 H Segmented Neutrophils (42.2 - 75.2 %) 95 H Band Neutrophils (0.0 - 5.0 %) 2 Absolute Lymphocytes (1.2 - 3.4 /CUMM) 0.7 L Lymphocytes (20.5 - 51.1 %) 1 L Monocytes (1.7 - 9.3 %) 1 L Absolute Monocytes (0.10 - 0.60 /CUMM) 0.4 Absolute Eosinophils (0.0 - 0.7 /CUMM) 0.1 Absolute Basophils (0.0 - 0.2 /CUMM) 0 Metamyelocytes (0.0 - 1.0 %) 1 Platelet Estimate (ADEQUATE) ADEQUATE Hypochromic-Microcytic 2+ Poikilocytosis 1+ Anisocytosis 1+ Microcytic Cells 1+ Macrocytic Cells 1+ Target Cells RARE Stomatocytes 1+ PUBS MCHC (33.0 - 37.0 G/DL) 33.0 33.5 09/02 09/02 09/02 09/02 1528 1050 UNK UNK Coagulation PT (9.4 - 12.5 SEC) 14.1 H INR (0.90 - 1.19) 1.35 H Hematology Lymphocytes (%) 10 % Normal PMNs (%) 45 Misc Hematology Test (%) Miscellaneous Phlebotomy Draw Site RT THORA Other Body Source Fluid WBC (0 - 5 /CUMM) 322 H Fld Total RBCs Counted (0 /CUMM) 81 H Fluid Glucose (mg/dL) 105 Fluid Total Protein (g/dL) < 2.0 Fluid Albumin (g/dL) < 1.0 Fluid LDH (U/L) 322 Pleural pH (PH) 7.40 09/02 09/01 09/01 0416 1656 1140 Chemistry Sodium (137 - 145 mmol/L) 137 Potassium (3.5 - 5.1 mmol/L) 3.8 Chloride (98 - 107 mmol/L) 114 H Carbon Dioxide (22 - 30 mmol/L) 17 L Anion Gap (5 - 16) 6 BUN (7 - 17 mg/dL) 12 Creatinine (0.5 - 1.0 mg/dL) 0.8 Estimated GFR (>60 ml/min) > 60 Glucose (65 - 99 mg/dL) 100 H Calcium (8.4 - 10.2 mg/dL) 6.9 L Phosphorus (2.5 - 4.5 mg/dL) 3.7 Magnesium (1.6 - 2.3 mg/dL) 1.8 Total Bilirubin (0.2 - 1.3 mg/dL) 0.5 AST (14 - 36 U/L) 15 ALT (9 - 52 U/L) 29 Albumin (3.5 - 5.0 g/dL) 1.4 L Hematology CBC w Diff MAN DIFF ORDERED WBC (4.8 - 10.8 /CUMM) 34.3 *H RBC (4.20 - 5.40 /CUMM) 2.65 L Hgb (12.0 - 16.0 G/DL) 8.2 L Hct (37 - 47 %) 24.3 L MCV (81.0 - 99.0 FL) 91.5 MCH (27.0 - 31.0 PG) 30.9 RDW (11.5 - 14.5 %) 15.9 H Plt Count (130 - 400 /CUMM) 188 MPV (7.4 - 10.4 FL) 10.1 Gran % (42.2 - 75.2 %) 95.6 H Lymphocytes % (20.5 - 51.1 %) 1.9 L Monocytes % (1.7 - 9.3 %) 2.2 Eosinophils % (0 - 5 %) 0.3 Basophils % (0.0 - 2.0 %) 0 L Absolute Granulocytes (1.4 - 6.5 /CUMM) 32.7 H Segmented Neutrophils (42.2 - 75.2 %) 95 H Band Neutrophils (0.0 - 5.0 %) 2 Absolute Lymphocytes (1.2 - 3.4 /CUMM) 0.7 L Lymphocytes (20.5 - 51.1 %) 1 L Monocytes (1.7 - 9.3 %) 2 Absolute Monocytes (0.10 - 0.60 /CUMM) 0.8 H Absolute Eosinophils (0.0 - 0.7 /CUMM) 0.1 Absolute Basophils (0.0 - 0.2 /CUMM) 0 Platelet Estimate (ADEQUATE) ADEQUATE Polychromasia 1+ Target Cells RARE Ovalocytes FEW Stomatocytes FEW PUBS MCHC (33.0 - 37.0 G/DL) 33.8 Other Body Source Fluid WBC (0 - 5 /CUMM) Fld Total RBCs Counted (%) 100 Fluid Albumin Cancelled 09/01 09/01 09/01 09/01 1140 1100 1100 0600 Hematology Lymphocytes (%) 4 % Normal PMNs (%) 89 Misc Hematology Test (%) Other Body Source Fluid WBC (0 - 5 /CUMM) Fld Total RBCs Counted (0 /CUMM) Fluid Glucose (mg/dL) 60 < 20 Fluid Total Protein (g/dL) < 2.0 2.3 Cancelled Fluid Albumin (g/dL) < 1.0 1.0 Fluid LDH (U/L) 1115 69980 Fluid Amylase (U/L) 219 41 Assessment/Plan Assessment/Plan A: 60F POD8 sp Ho's 2/2 perf'ed sigmoid diverticulitis, day2 sp IR drainage x2 to abd collections (prelim cx=no growth), day 1 sp R thoracentesis ( decresed effusion), tolerating TF at goal with bowel fxn via ostomy, remains in critical condition, intubated in ICU, with worsening leukocytosis and low grade fevers. P: Ostomy/wound care TF for nutrition fu IR drain cx trend labs Continue care per primary/pmo consultant teams
[2016-09-03 08:00] VITALS: BP 120/70
--- NOTE | 2016-09-03 08:08 | RADIOLOGY REPORT ---
EXAMINATION: XR PORTABLE CHEST CLINICAL INFORMATION: Respiratory failure. Endotracheal tube placement COMPARISON: 09/02/2016 TECHNIQUE: Portable AP view of the chest was obtained. FINDINGS: There is an endotracheal tube which is positioned approximately 3 cm above the evelio. There is an enteric tube in the stomach. There is a right-sided PICC line with the tip in the superior vena cava unchanged. There is no significant change in appearance of the lung rosenbaum. Heart size is within normal limits. Pulmonary vascularity is within normal limits. There small bilateral pleural effusions, without significant interval change since the most recent postthoracentesis chest x-ray from the previous day. There is no pneumothorax identified. IMPRESSION: Tubes and lines in place. Small bilateral pleural effusions without significant change from the most recent postthoracentesis film. No pneumothorax identified.
--- NOTE | 2016-09-03 08:09 | PN- Resident CRCU ---
See Addendum Subjective HPI/CRCU Issues: patient was seen and examined at bedside today, she is alert and awake, intubated, does not appear in distress, is able to move head to say yes or no. Patient was noticed to have purulent discharge from the RUQ drain yesterday, currently the bag is emptied and contains very small amount of purulent discharge. 24 Hour Events: Intake & Output 09/03 1600 09/03 0800 09/03 0000 Intake Total 1452 1313 Output Total 965 495 Balance 487 818 Intake, IV 783 795 Intake, Oral 0 0 Intake, Other 60 Intake, Tube 489 398 Feeding Intake, Tube 120 120 Irrigant Output, 65 25 Drainage Output, 0 Gastric Drainage Output, Stool 400 20 Output, Urine 500 450 Laboratory Tests 09/03 09/02 0345 2130 Chemistry Sodium (137 - 145 mmol/L) 134 L 133 L Potassium (3.5 - 5.1 mmol/L) 4.2 3.6 Chloride (98 - 107 mmol/L) 111 H 110 H Carbon Dioxide (22 - 30 mmol/L) 17 L 18 L Anion Gap (5 - 16) 6 5 BUN (7 - 17 mg/dL) 10 11 Creatinine (0.5 - 1.0 mg/dL) 0.7 0.7 Estimated GFR (>60 ml/min) > 60 > 60 Glucose (65 - 99 mg/dL) 97 104 H Calcium (8.4 - 10.2 mg/dL) 6.8 L 6.9 L Phosphorus (2.5 - 4.5 mg/dL) 3.6 3.6 Magnesium (1.6 - 2.3 mg/dL) 1.7 1.8 Total Bilirubin (0.2 - 1.3 mg/dL) 0.4 0.3 AST (14 - 36 U/L) 14 15 ALT (9 - 52 U/L) 35 37 Lactate Dehydrogenase (313 - 618 U/L) 480 Albumin (3.5 - 5.0 g/dL) 1.5 L 1.5 L Hematology CBC w Diff MAN DIFF ORDERED NO MAN DIFF REQ WBC (4.8 - 10.8 /CUMM) 37.8 *H 33.9 *H RBC (4.20 - 5.40 /CUMM) 2.66 L 2.61 L Hgb (12.0 - 16.0 G/DL) 8.0 L 8.1 L Hct (37 - 47 %) 24.4 L 24.0 L MCV (81.0 - 99.0 FL) 91.7 92.2 MCH (27.0 - 31.0 PG) 30.2 30.9 RDW (11.5 - 14.5 %) 15.6 H 16.0 H Plt Count (130 - 400 /CUMM) 236 222 MPV (7.4 - 10.4 FL) 10.1 10.0 Gran % (42.2 - 75.2 %) 96.6 H Lymphocytes % (20.5 - 51.1 %) 1.9 L Monocytes % (1.7 - 9.3 %) 1.1 L Eosinophils % (0 - 5 %) 0.4 Basophils % (0.0 - 2.0 %) 0 L Absolute Granulocytes (1.4 - 6.5 /CUMM) 32.7 H Segmented Neutrophils (42.2 - 75.2 %) 95 H Band Neutrophils (0.0 - 5.0 %) 2 Absolute Lymphocytes (1.2 - 3.4 /CUMM) 0.7 L Lymphocytes (20.5 - 51.1 %) 1 L Monocytes (1.7 - 9.3 %) 1 L Absolute Monocytes (0.10 - 0.60 /CUMM) 0.4 Absolute Eosinophils (0.0 - 0.7 /CUMM) 0.1 Absolute Basophils (0.0 - 0.2 /CUMM) 0 Metamyelocytes (0.0 - 1.0 %) 1 Platelet Estimate (ADEQUATE) ADEQUATE Hypochromic-Microcytic 2+ Poikilocytosis 1+ Anisocytosis 1+ Microcytic Cells 1+ Macrocytic Cells 1+ Target Cells RARE Stomatocytes 1+ PUBS MCHC (33.0 - 37.0 G/DL) 33.0 33.5 09/02 09/02 1528 1050 Coagulation PT (9.4 - 12.5 SEC) 14.1 H INR (0.90 - 1.19) 1.35 H Miscellaneous Phlebotomy Draw Site RT THORA Other Body Source Pleural pH (PH) 7.40 Objective Vital Signs & I&O Last 8 Hrs of Vitals and I&O: T max of 99.1 FL 92-100 BP 100/53 to 136/57 Vent settings: Rate 20/ TV 450/ PEEP 5/ Fio2 40% I, 1452 cc O, 500 cc Exam General Appearance: well developed/nourished, no apparent distress, alert, awake , intubated Head: atraumatic, normal appearance Neck: normal inspection Respiratory: chest non-tender, Anterior chest exam: scattered end expiratory wheezing bilaterally, no rhonchi or crackles. Cardiovascular: regular rate/rhythm Gastrointestinal: normal bowel sounds, soft, non-tender, LLQ ostomy emptied but contains minimal serosanguinous discharge. RUQ ostomy contains remaining of the purulent discharge and is emptied as well. there is bandage the midline incision and the skin appears dry. Extremities: bilateral upper and lower extremity edema Cranial Nerves: normal hearing, PERRL Skin: intact, normal color Skin Temp/Moisture Exam: Warm/Dry Current Medications: Current Medications Sig/Ry Start time Last Medication Dose Route Stop Time Status Admin Acetaminophen 1,000 MG Q6P PRN 08/27 0230 09/01 N/A 1 UNIT IV 1846 Albuterol Sulfate 3 ML EVERY 4 HRS/AWAKE 09/02 1999 AC 09/03 INH 0822 Albuterol Sulfate 3 ML Q4H PRN 08/27 1000 AC 08/28 INH 1309 Chlorhexidine 15 ML TID 08/29 1000 AC 09/03 Gluconate PO 0843 Dextrose/Sodium 1,000 ML Q13H 08/30 0445 AC 09/02 Chloride IV 2113 Enoxaparin Sodium 40 MG DAILY 09/03 1000 09/03 SC 0842 Fentanyl Citrate 1,000 MCG Q10H 09/03 1999 09/03 Dextrose/Water 250 ML IV 0842 Fentanyl Citrate 1,000 MCG Q24H 09/02 0945 IA 09/02 Dextrose/Water 250 ML IV 09/03 1999 1035 Fluconazole 400 MG Q24 08/30 1045 AC 09/03 Sodium Chloride 200 ML IV 0842 Lorazepam 2 MG Q4-PRN PRN 08/31 1730 09/03 IV 0856 Magnesium Oxide 400 MG ONE 09/03 0830 DC PO 09/03 0831 Magnesium Oxide 400 MG ONE 09/02 2245 DC 09/02 PO 09/02 2246 2318 Magnesium Sulfate 1 GM ONCE ONE 09/02 0700 DC 09/02 Dextrose/Water 100 ML IV 09/02 1059 0911 Meropenem 1 GM IQ8 09/01 1600 AC 09/03 IV 0842 Morphine Sulfate 2 MG Q2P PRN 08/26 2200 DC 09/02 IV 0745 Pantoprazole Sodium 40 MG DAILY 08/27 1000 AC 09/03 IV 0842 Potassium Chloride 40 MEQ ONCE ONE 09/025 DC 09/02 PO 09/026 2318 Impression/Plan Impression/Problem List Impression: Ms. Camacho is a 60 year old female with PMH anxiety, depression, COPD , prior episode of severe clostridium difficile infection in 2016, tobacco abuse and gastritis who presented to the [facility] after one week of altered mental status, decreased oral intake and possible withdrawl symptoms as her clonazepam was being titrated off per doctor instructions. She was found to be hypotensive, febrile and altered while in the [facility]. In the ED: Vital signs showed Tmax 101.5, HR 116, RR 20, BP 93/62 and O2 saturation 90% on room air. Labs were significant for WBC 18.1 with 37 bands, H&H 13.7/41.6, Plt 623, Na 143 , K 3.6, Cl 107, HCO3 16, BUN/cre 28/1.8, Glu 98, Lactic acid 2.9, AST 62, ALT 42, CK 370, troponin 0.05, proBNP 59640, amylase 153, lipase <10, and UA with high protein, positive nitrite, high urobilinogen, 50 WBCs, moderate bacteria and large hgb. CXR showed no acute pulmonary process. Head CT was negative for acute pathology. Patient was admitted to the ICU and the following is the current management: 1. Severe sepsis secondary to peritonitis from perforated sigmoid colon with abscess formation * Patient febrile, + leukocytosis with bandemia, hypotensive and tachycardic on admission * Post-op day #8 from Harmann's procedure with Dr. Marcello MD; patient remains intubated off pressors or sedation, ostomy pink with + green liquid stool * Patient day 1 s/p IR guided drainage of RUQ and LLQ fluid with drains in place * RUQ draining purulent material; growing gram + cocci so far, final cultures pending * ID consult appreciated, continue to follow recommendations * LRC shows pseudomonas resistant to zosyn; continue IV fluconazole to 400 g IV Q24 hours and Meropenem * Today WBC count further elevated to 37.8, will repeat CBC at 5 pm, currently continuing with Meropenem * Continue D51/2NS at 75 cc/h to maintain CVP 8-10; continue tube feeds * Surgery follow up appreciated with Dr. Marcello MD * IV protonix while intubated 2. Metabolic encephalopathy * On admission, likely secondary to severe sepsis from sigmoid perforation/ peritonitis * CT head negative for acute intracranial pathology * Hold all sedatives, hold off all home psych meds until mental status improves 3. Acute hypoxemic respiratory failure * Patient initially placed on non-rebreather but was transitioned to high flow nasal cannula/ BiPAP due to tachypnea/apparent respiratory distress * Patient tolerated BiPAP well but was intubated for Ho's procedure; FiO2 requirements stable at 50% with CXR showing biabilsar nonspecific airpsace disease * Aspiration precautions * No CPAP trial until FiO2 at least 40% * Noted bilateral pleural effusions on CT chest * Patient having US to examine size of pleural effusions, if tapable will have IR drain today 4. SIERRA * Likely prerenal in the setting of severe sepsis * Improved, continue IVF hydration * Monitor renal function and electrolytes with ICU bundle * Monitor urine output, strict Is/Os 5. Sinus tachycardia with T wave changes, IMPROVED * Continuous telemetry monitoring * Troponins negative x 3 * Echo showed normal global LV function without wall motion abnormalities and normal pulm artery systolic pressure * Monitor vital signs closely 6. Thrombocytopenia, IMPROVIN * Plt this AM increased to 188 (623 on admission) * Likely 2/2 coagulopathly from sepsis * 4Ts score placed patient at low risk for HIT (<5%) * Will resume DVTP after thoracentesis as Plt now in acceptable range 7. Acute blood loss anemia * H&H stable at 8.2/24.3 this AM * Total 1 U PRBC given since admission * Follow up CBC daily FULL CODE Diet: Tube feeds DVTP: ALPS Pain: Fentanyl drip Problem List: 1. Diverticulosis of colon 2. Malnutrition 3. History of adenomatous polyp of colon 4. History of Clostridium difficile infection 5. Lactic acidosis 6. Hypotension 7. Perforated viscus 8. Severe sepsis Pain Ratin Tomorrow's Labs & Rationales: CBC (leukocytosis) ICU bundle (monitor electrolytes) Plan DVT/Prophylaxis: pharmacological
--- NOTE | 2016-09-03 10:23 | PN- CRCU ---
Subjective HPI/Critical Care Issues: Remains intubated in ICU. +ostomy fxn. Tolerating TF. R thoracentesis yesterday. Leukocytosis worsening. Lowgrade temps. Intubated sedated but does follow commands SIGNIFICANT DATA Creatinine BUN stable Sodium 134 Is 6 liver enzymes were unremarkable initial CK was slightly elevated body fluid glucose was 105 protein was less than 2 LDH was slightly elevated body fluid amylase is 219. White count 37,000 which is consistently high hemoglobin 8 platelets 236 No ABG recently Chest x-ray done today showed small bilateral effusions no pneumothorax Objective Current Medications: Current Medications Sig/Ry Start time Last Medication Dose Route Stop Time Status Admin Acetaminophen 1,000 MG Q6P PRN 08/27 0230 AC 09/01 N/A 1 UNIT IV 1846 Albuterol Sulfate 3 ML EVERY 4 HRS/AWAKE 09/01 2000 AC 09/03 INH 0822 Albuterol Sulfate 3 ML Q4H PRN 08/27 1000 AC 08/28 INH 1309 Chlorhexidine 15 ML TID 08/29 1000 AC 09/03 Gluconate PO 0843 Dextrose/Sodium 1,000 ML Q13H 08/30 0445 09/02 Chloride IV 2113 Enoxaparin Sodium 40 MG DAILY 09/03 1000 AC 09/03 SC 0842 Fentanyl Citrate 1,000 MCG Q10H 09/02 2000 AC 09/03 Dextrose/Water 250 ML IV 0842 Fentanyl Citrate 1,000 MCG Q24H 09/02 0945 WA 09/02 Dextrose/Water 250 ML IV 09/02 2000 1035 Fluconazole 400 MG Q24 08/30 1045 AC 09/03 Sodium Chloride 200 ML IV 0842 Lorazepam 2 MG Q4-PRN PRN 08/31 1730 09/03 IV 0856 Magnesium Oxide 400 MG ONE 09/03 0830 DC PO 09/03 0831 Magnesium Oxide 400 MG ONE 09/02 2245 DC 09/02 PO 09/02 2246 2318 Magnesium Sulfate 1 GM ONCE ONE 09/02 0700 DC 09/02 Dextrose/Water 100 ML IV 09/02 1059 0911 Meropenem 1 GM IQ8 09/01 1600 AC 09/03 IV 0842 Morphine Sulfate 2 MG Q2P PRN 08/26 2200 DC 09/02 IV 0745 Pantoprazole Sodium 40 MG DAILY 08/27 1000 AC 09/03 IV 0842 Potassium Chloride 40 MEQ ONCE ONE 09/02 2244 DC 09/02 PO 09/02 2245 2318 Laboratory Tests 09/03 09/02 3027 2130 Chemistry Sodium (137 - 145 mmol/L) 134 L 133 L Potassium (3.5 - 5.1 mmol/L) 4.2 3.6 Chloride (98 - 107 mmol/L) 111 H 110 H Carbon Dioxide (22 - 30 mmol/L) 17 L 18 L Anion Gap (5 - 16) 6 5 BUN (7 - 17 mg/dL) 10 11 Creatinine (0.5 - 1.0 mg/dL) 0.7 0.7 Estimated GFR (>60 ml/min) > 60 > 60 Glucose (65 - 99 mg/dL) 97 104 H Calcium (8.4 - 10.2 mg/dL) 6.8 L 6.9 L Phosphorus (2.5 - 4.5 mg/dL) 3.6 3.6 Magnesium (1.6 - 2.3 mg/dL) 1.7 1.8 Total Bilirubin (0.2 - 1.3 mg/dL) 0.4 0.3 AST (14 - 36 U/L) 14 15 ALT (9 - 52 U/L) 35 37 Lactate Dehydrogenase (313 - 618 U/L) 480 Albumin (3.5 - 5.0 g/dL) 1.5 L 1.5 L Hematology CBC w Diff MAN DIFF ORDERED NO MAN DIFF REQ WBC (4.8 - 10.8 /CUMM) 37.8 *H 33.9 *H RBC (4.20 - 5.40 /CUMM) 2.66 L 2.61 L Hgb (12.0 - 16.0 G/DL) 8.0 L 8.1 L Hct (37 - 47 %) 24.4 L 24.0 L MCV (81.0 - 99.0 FL) 91.7 92.2 MCH (27.0 - 31.0 PG) 30.2 30.9 RDW (11.5 - 14.5 %) 15.6 H 16.0 H Plt Count (130 - 400 /CUMM) 236 222 MPV (7.4 - 10.4 FL) 10.1 10.0 Gran % (42.2 - 75.2 %) 96.6 H Lymphocytes % (20.5 - 51.1 %) 1.9 L Monocytes % (1.7 - 9.3 %) 1.1 L Eosinophils % (0 - 5 %) 0.4 Basophils % (0.0 - 2.0 %) 0 L Absolute Granulocytes (1.4 - 6.5 /CUMM) 32.7 H Segmented Neutrophils (42.2 - 75.2 %) 95 H Band Neutrophils (0.0 - 5.0 %) 2 Absolute Lymphocytes (1.2 - 3.4 /CUMM) 0.7 L Lymphocytes (20.5 - 51.1 %) 1 L Monocytes (1.7 - 9.3 %) 1 L Absolute Monocytes (0.10 - 0.60 /CUMM) 0.4 Absolute Eosinophils (0.0 - 0.7 /CUMM) 0.1 Absolute Basophils (0.0 - 0.2 /CUMM) 0 Metamyelocytes (0.0 - 1.0 %) 1 Platelet Estimate (ADEQUATE) ADEQUATE Hypochromic-Microcytic 2+ Poikilocytosis 1+ Anisocytosis 1+ Microcytic Cells 1+ Macrocytic Cells 1+ Target Cells RARE Stomatocytes 1+ PUBS MCHC (33.0 - 37.0 G/DL) 33.0 33.5 09/02 09/02 09/02 09/02 1528 1050 UNK UNK Coagulation PT (9.4 - 12.5 SEC) 14.1 H INR (0.90 - 1.19) 1.35 H Hematology Lymphocytes (%) 10 % Normal PMNs (%) 45 Misc Hematology Test (%) Miscellaneous Phlebotomy Draw Site RT THORA Other Body Source Fluid WBC (0 - 5 /CUMM) 322 H Fld Total RBCs Counted (0 /CUMM) 81 H Fluid Glucose (mg/dL) 105 Fluid Total Protein (g/dL) < 2.0 Fluid Albumin (g/dL) < 1.0 Fluid LDH (U/L) 322 Pleural pH (PH) 7.40 09/02 09/01 09/01 0416 1656 1140 Chemistry Sodium (137 - 145 mmol/L) 137 Potassium (3.5 - 5.1 mmol/L) 3.8 Chloride (98 - 107 mmol/L) 114 H Carbon Dioxide (22 - 30 mmol/L) 17 L Anion Gap (5 - 16) 6 BUN (7 - 17 mg/dL) 12 Creatinine (0.5 - 1.0 mg/dL) 0.8 Estimated GFR (>60 ml/min) > 60 Glucose (65 - 99 mg/dL) 100 H Calcium (8.4 - 10.2 mg/dL) 6.9 L Phosphorus (2.5 - 4.5 mg/dL) 3.7 Magnesium (1.6 - 2.3 mg/dL) 1.8 Total Bilirubin (0.2 - 1.3 mg/dL) 0.5 AST (14 - 36 U/L) 15 ALT (9 - 52 U/L) 29 Albumin (3.5 - 5.0 g/dL) 1.4 L Hematology CBC w Diff MAN DIFF ORDERED WBC (4.8 - 10.8 /CUMM) 34.3 *H RBC (4.20 - 5.40 /CUMM) 2.65 L Hgb (12.0 - 16.0 G/DL) 8.2 L Hct (37 - 47 %) 24.3 L MCV (81.0 - 99.0 FL) 91.5 MCH (27.0 - 31.0 PG) 30.9 RDW (11.5 - 14.5 %) 15.9 H Plt Count (130 - 400 /CUMM) 188 MPV (7.4 - 10.4 FL) 10.1 Gran % (42.2 - 75.2 %) 95.6 H Lymphocytes % (20.5 - 51.1 %) 1.9 L Monocytes % (1.7 - 9.3 %) 2.2 Eosinophils % (0 - 5 %) 0.3 Basophils % (0.0 - 2.0 %) 0 L Absolute Granulocytes (1.4 - 6.5 /CUMM) 32.7 H Segmented Neutrophils (42.2 - 75.2 %) 95 H Band Neutrophils (0.0 - 5.0 %) 2 Absolute Lymphocytes (1.2 - 3.4 /CUMM) 0.7 L Lymphocytes (20.5 - 51.1 %) 1 L Monocytes (1.7 - 9.3 %) 2 Absolute Monocytes (0.10 - 0.60 /CUMM) 0.8 H Absolute Eosinophils (0.0 - 0.7 /CUMM) 0.1 Absolute Basophils (0.0 - 0.2 /CUMM) 0 Platelet Estimate (ADEQUATE) ADEQUATE Polychromasia 1+ Target Cells RARE Ovalocytes FEW Stomatocytes FEW PUBS MCHC (33.0 - 37.0 G/DL) 33.8 Other Body Source Fluid WBC (0 - 5 /CUMM) Fld Total RBCs Counted (%) 100 Fluid Albumin Cancelled 09/01 09/01 09/01 1140 1100 1100 Hematology Lymphocytes (%) 4 % Normal PMNs (%) 89 Misc Hematology Test (%) Other Body Source Fluid WBC (0 - 5 /CUMM) Fld Total RBCs Counted (0 /CUMM) Fluid Glucose (mg/dL) 60 < 20 Fluid Total Protein (g/dL) < 2.0 2.3 Fluid Albumin (g/dL) < 1.0 1.0 Fluid LDH (U/L) 1115 97180 Fluid Amylase (U/L) 219 41 Microbiology Date/Time Procedure - Status Source Growth 09/02 UNK Body Fluid Culture - RES BODY FLUID 09/02 UNK Gram Stain - RES BODY FLUID 09/01 1140 Body Fluid Culture - RES BODY FLUID 09/01 1140 Gram Stain - RES BODY FLUID 09/01 1100 Body Fluid Culture - RES BODY FLUID 09/01 1100 Gram Stain - RES BODY FLUID Vital Signs & I&O Last 24 Hrs of Vitals and I&O: Vital Signs Date Time Temp Pulse Resp B/P B/P Pulse O2 O2 Flow FiO2 Mean Ox Delivery Rate 09/03 0830 45 09/03 0558 45 09/03 0400 93 Ventilator 45% 09/03 0321 45 09/03 0105 45 09/03 0000 90 Ventilator 45% 09/03 0000 99.0 100 26 112/60 90 Ventilator 45% 09/02 2218 45 09/02 2030 45 09/02 2000 90 Ventilator 45% 09/02 1630 45 09/02 1600 97.9 88 22 110/62 97 Ventilator 45% 09/02 1600 90 Ventilator 45% 09/02 1424 45 09/02 1331 Ventilator 60% 09/02 1200 94 Ventilator 45% 09/02 1153 45 Intake & Output 09/03 1600 09/03 0800 09/03 0000 Intake Total 1452 1313 Output Total 965 495 Balance 487 818 Intake, IV 783 795 Intake, Oral 0 0 Intake, Other 60 Intake, Tube 489 398 Feeding Intake, Tube 120 120 Irrigant Output, 65 25 Drainage Output, 0 Gastric Drainage Output, Stool 400 20 Output, Urine 500 450 Impression/Plan Impression/Plan Impression/Plan: Exam General Appearance: well developed/nourished, no apparent distress, sedated, intubated Head: atraumatic, normal appearance Ears, Nose, Throat: hearing grossly normal, moist mucus membranes Neck: normal inspection, supple Respiratory: Rhonchi bilateral lung rosenbaum but aeration improving Cardiovascular: regular rate/rhythm Gastrointestinal: Ostomy pink with good stool output, midline incision covered by dry clean gauze Extremities: Bilateral upper extremity pitting edema Cranial Nerves: normal hearing, PERRL Skin: Normal color, clean and dry around midline incision Skin Temp/Moisture Exam: Warm/Dry IMPRESSION This is a lady with pericolic abscess status post drainage and sigmoid colectomy with end colostomy with status post drainage for fluid placement in the right upper quadrant and left lower abdomen with bilateral pleural fluid, ongoing fever now on meropenem and fluconazole. Issues include postop respiratory failure related to above-mentioned problems Ongoing infection intra-abdominally Pleural effusion bilaterally appears most likely related to a transudative effusion Significant thrombocytopenia now improved Persistent leukocytosis Pseudomonas intra-abdominal sepsis and intra-abdominal fungal infection RECOMMENDATION Continue mechanical ventilator Start pressure-support ventilation Gentle low-grade sedation Give one dose of intravenous Lasix before spontaneous breathing trial Hopefully patient could be extubated today her tomorrow if able Continue antibiotics Continue tube feedings [place] patient is critically ill total time spent 45 minutes
--- NOTE | 2016-09-03 11:57 | NUR ---
PT REMAINS INTUBATED WITH SAS OF 4 ON FENTANYL DRIP AND ATIAN PRN. ATTEPMTED TO DECREASE FENTANYL IN PREPARATION FOR WEANING TRIAL , HOWEVER PTS RR INCREASED TO THE 40'S AND SATS DROPPED REQIRING O2 INCREASE TO 50%.
[2016-09-03 15:59] VITALS: BP 124/60
[2016-09-03 17:55] LABS: ABSOLUTE BASOPHIL COUNT 0 /CUMM (0.0-0.2); ABSOLUTE EOSINOPHIL COUNT 0 /CUMM (0.0-0.7); ABSOLUTE LYMPH COUNT 0.7 /CUMM (1.2-3.4); ABSOLUTE MONOCYTE COUNT 1.1 /CUMM (0.10-0.60); BASOPHIL % 0 % (0.0-2.0); EOSINOPHIL % 0.1 % (0-5); HEMATOCRIT 26.3 % (37-47); MEAN CORPUSCULAR HGB 30.8 PG (27.0-31.0); MEAN CORPUSCULAR HGB CONC 33.8 G/DL (33.0-37.0); MEAN CORPUSCULAR VOLUME 91.3 FL (81.0-99.0); MEAN PLATELET VOLUME 9.7 FL (7.4-10.4); PLATELET COUNT 270 /CUMM (130-400); RBC DISTRIBUTION WIDTH 15.6 % (11.5-14.5); RED BLOOD CELL CT 2.87 /CUMM (4.20-5.40)
[2016-09-03 17:59] LABS: WHITE BLOOD CELL COUNT 42.8 /CUMM (4.8-10.8)
[2016-09-03 19:10] LABS: GRANULOCYTE % 95.9 % (42.2-75.2)
[2016-09-04] VITALS: BP 122/65
--- NOTE | 2016-09-04 06:07 | PN- General Surgery ---
See Addendum Subjective Subjective: intubated, responsive, no acute events overnight. WBC count yesterday increasing to 42K, this am is pending. Objective Vital Signs and I&Os Vital Signs Date Time Temp Pulse Resp B/P B/P Pulse O2 O2 Flow FiO2 Mean Ox Delivery Rate 09/04 0400 98 Ventilator 50% 09/04 0338 50 09/04 0040 50 09/04 0000 98.9 09/04 0000 98 Ventilator 50% 09/04 0000 98.6 107 22 122/65 98 Ventilator 50% 09/03 2230 101.0 09/03 2039 50 09/03 2000 93 Ventilator 50% 09/03 1612 50 09/03 1559 94 Ventilator 50% 09/03 1559 98.7 110 22 124/60 94 Ventilator 50% 09/03 1350 50 09/03 1200 95 Ventilator 50% 09/03 1121 50 09/03 0830 45 09/03 0800 97.7 94 22 120/70 95 Ventilator 45% 09/03 0558 45 Intake & Output 09/04 0800 09/04 0000 09/03 1600 09/03 0800 09/03 0000 09/02 1600 Intake Total 1802 1498 1452 1313 1593 Output Total 820 1755 486 456 4701 Balance 982 -257 487 818 328 Intake, IV 1150 818 264 599 4334 Intake, Oral 0 0 Intake, Other 60 145 Intake, Tube 502 560 489 398 323 Feeding Intake, Tube 150 120 120 120 20 Irrigant Output, 20 30 65 25 100 Drainage Output, 0 Gastric Drainage Output, Other 660 Output, Stool 300 100 400 20 80 Output, Urine 500 1625 500 450 425 Patient 165 lb Weight Weight Bed scale Measurement Method Physical Exam: GEN: intubated, responsive to verbal stimuli CARD: S1S2 RRR PULM: anterior with mild rhonchi ABD:non tender, non distended, + bowel sounds, soft, midline with khloe, inferior portion opened, /mild s/s drainage with gauze packing, stoma retracted but pink, large amount of air and dark green liquid stool, RUQ drain with small amount of seropurulent drainage, LLQ drain with minimal serosang drainage EXT: +1 edema bl le Results Last 48 Hours of Labs: Laboratory Tests 09/04 09/03 09/03 0435 2200 1700 Chemistry Sodium Pending Potassium Pending Chloride Pending Carbon Dioxide Pending Anion Gap Pending BUN Pending Creatinine Pending Glucose Pending Calcium Pending Phosphorus Pending Magnesium Pending Total Bilirubin Pending AST Pending ALT Pending Albumin Pending Hematology CBC w Diff Pending Cancelled MAN DIFF ORDERED WBC (4.8 - 10.8 /CUMM) Pending Cancelled 42.8 *H RBC (4.20 - 5.40 /CUMM) Pending Cancelled 2.87 L Hgb (12.0 - 16.0 G/DL) Pending Cancelled 8.9 L Hct (37 - 47 %) Pending Cancelled 26.3 L MCV (81.0 - 99.0 FL) Pending Cancelled 91.3 MCH (27.0 - 31.0 PG) Pending Cancelled 30.8 RDW (11.5 - 14.5 %) Pending Cancelled 15.6 H Plt Count (130 - 400 /CUMM) Pending Cancelled 270 MPV (7.4 - 10.4 FL) Pending Cancelled 9.7 Gran % (42.2 - 75.2 %) 95.9 H Lymphocytes % (20.5 - 51.1 %) 1.5 L Monocytes % (1.7 - 9.3 %) 2.5 Eosinophils % (0 - 5 %) 0.1 Basophils % (0.0 - 2.0 %) 0 L Absolute Granulocytes (1.4 - 6.5 /CUMM) 41.0 H Segmented Neutrophils (42.2 - 75.2 %) 9 L Absolute Lymphocytes (1.2 - 3.4 /CUMM) 0.7 L Monocytes (1.7 - 9.3 %) 1 L Absolute Monocytes (0.10 - 0.60 /CUMM) 1.1 H Absolute Eosinophils (0.0 - 0.7 /CUMM) 0 Absolute Basophils (0.0 - 0.2 /CUMM) 0 Nucleated RBCs (0.0 - 0.0 /100WBC) 1 H Platelet Estimate (ADEQUATE) VERIFIED BY SMEAR Polychromasia 1+ PUBS MCHC (33.0 - 37.0 G/DL) Pending Cancelled 33.8 Other Body Source Fld Total RBCs Counted (%) 100 09/035 2130 Chemistry Sodium (137 - 145 mmol/L) 134 L 133 L Potassium (3.5 - 5.1 mmol/L) 4.2 3.6 Chloride (98 - 107 mmol/L) 111 H 110 H Carbon Dioxide (22 - 30 mmol/L) 17 L 18 L Anion Gap (5 - 16) 6 5 BUN (7 - 17 mg/dL) 10 11 Creatinine (0.5 - 1.0 mg/dL) 0.7 0.7 Estimated GFR (>60 ml/min) > 60 > 60 Glucose (65 - 99 mg/dL) 97 104 H Calcium (8.4 - 10.2 mg/dL) 6.8 L 6.9 L Phosphorus (2.5 - 4.5 mg/dL) 3.6 3.6 Magnesium (1.6 - 2.3 mg/dL) 1.7 1.8 Total Bilirubin (0.2 - 1.3 mg/dL) 0.4 0.3 AST (14 - 36 U/L) 14 15 ALT (9 - 52 U/L) 35 37 Lactate Dehydrogenase (313 - 618 U/L) 480 Albumin (3.5 - 5.0 g/dL) 1.5 L 1.5 L Hematology CBC w Diff MAN DIFF ORDERED NO MAN DIFF REQ WBC (4.8 - 10.8 /CUMM) 37.8 *H 33.9 *H RBC (4.20 - 5.40 /CUMM) 2.66 L 2.61 L Hgb (12.0 - 16.0 G/DL) 8.0 L 8.1 L Hct (37 - 47 %) 24.4 L 24.0 L MCV (81.0 - 99.0 FL) 91.7 92.2 MCH (27.0 - 31.0 PG) 30.2 30.9 RDW (11.5 - 14.5 %) 15.6 H 16.0 H Plt Count (130 - 400 /CUMM) 236 222 MPV (7.4 - 10.4 FL) 10.1 10.0 Gran % (42.2 - 75.2 %) 96.6 H Lymphocytes % (20.5 - 51.1 %) 1.9 L Monocytes % (1.7 - 9.3 %) 1.1 L Eosinophils % (0 - 5 %) 0.4 Basophils % (0.0 - 2.0 %) 0 L Absolute Granulocytes (1.4 - 6.5 /CUMM) 32.7 H Segmented Neutrophils (42.2 - 75.2 %) 95 H Band Neutrophils (0.0 - 5.0 %) 2 Absolute Lymphocytes (1.2 - 3.4 /CUMM) 0.7 L Lymphocytes (20.5 - 51.1 %) 1 L Monocytes (1.7 - 9.3 %) 1 L Absolute Monocytes (0.10 - 0.60 /CUMM) 0.4 Absolute Eosinophils (0.0 - 0.7 /CUMM) 0.1 Absolute Basophils (0.0 - 0.2 /CUMM) 0 Metamyelocytes (0.0 - 1.0 %) 1 Platelet Estimate (ADEQUATE) ADEQUATE Hypochromic-Microcytic 2+ Poikilocytosis 1+ Anisocytosis 1+ Microcytic Cells 1+ Macrocytic Cells 1+ Target Cells RARE Stomatocytes 1+ PUBS MCHC (33.0 - 37.0 G/DL) 33.0 33.5 09/02 09/02 09/02 09/02 1528 1050 UNK UNK Coagulation PT (9.4 - 12.5 SEC) 14.1 H INR (0.90 - 1.19) 1.35 H Hematology Lymphocytes (%) 10 % Normal PMNs (%) 45 Misc Hematology Test (%) Miscellaneous Phlebotomy Draw Site RT THORA Other Body Source Fluid WBC (0 - 5 /CUMM) 322 H Fld Total RBCs Counted (0 /CUMM) 81 H Fluid Glucose (mg/dL) 105 Fluid Total Protein (g/dL) < 2.0 Fluid Albumin (g/dL) < 1.0 Fluid LDH (U/L) 322 Pleural pH (PH) 7.40 Assessment/Plan Assessment/Plan A: 60F POD 9 sp Ho's 2/2 perf'ed sigmoid diverticulitis, day 3 sp IR drainage x2 of abd collections cont TF if extubated may start clears cont daily dressing changes and wound care IR drain cultures : no growth x 2 days, prelim for both sites increasing leukocytosis with intermittent low grade fevers: ID following, consider fungal in origin as abdomenal exam is benign Continue care per primary/hematology oncology consultant teams
[2016-09-04 06:20] LABS: ABSOLUTE BASOPHIL COUNT 0 /CUMM (0.0-0.2); ABSOLUTE EOSINOPHIL COUNT 0 /CUMM (0.0-0.7); ABSOLUTE GRANULOCYTE CT 35.4 /CUMM (1.4-6.5); ABSOLUTE LYMPH COUNT 0.6 /CUMM (1.2-3.4); ABSOLUTE MONOCYTE COUNT 0.8 /CUMM (0.10-0.60); BASOPHIL % 0 % (0.0-2.0); EOSINOPHIL % 0.1 % (0-5); GRANULOCYTE % 96.2 % (42.2-75.2); HEMATOCRIT 23.9 % (37-47); MEAN CORPUSCULAR HGB CONC 33.5 G/DL (33.0-37.0); MEAN CORPUSCULAR VOLUME 92.6 FL (81.0-99.0); MEAN PLATELET VOLUME 9.9 FL (7.4-10.4); PLATELET COUNT 281 /CUMM (130-400); RBC DISTRIBUTION WIDTH 15.8 % (11.5-14.5); RED BLOOD CELL CT 2.58 /CUMM (4.20-5.40)
[2016-09-04 06:34] LABS: WHITE BLOOD CELL COUNT 36.8 /CUMM (4.8-10.8)
--- NOTE | 2016-09-04 07:52 | RADIOLOGY REPORT ---
EXAMINATION: XR PORTABLE CHEST CLINICAL INFORMATION: Intubated COMPARISON: Chest 09/03/2016 TECHNIQUE: Portable frontal view of the chest was obtained. FINDINGS: There is an endotracheal tube 2.6 cm above the evelio. Nasogastric tube is in the stomach. A right PICC line tip is in mid SVC. The lungs are hypoexpanded with bibasilar atelectasis and/or effusion. The upper lungs are well-expanded and clear. No gross bony abnormality seen. IMPRESSION: Support lines and catheters in satisfactory alignment. Hypoexpanded lungs with bibasilar effusion and/or atelectasis. No major change from previous study.
[2016-09-04 08:00] VITALS: BP 122/80
--- NOTE | 2016-09-04 08:15 | PN- Infect Dx ---
Subjective Subjective: MAXIMUM TEMPERATURE 101. She does not report any complaints Objective Last 24 Hrs of Vital Signs/I&O Vital Signs Date Time Temp Pulse Resp B/P B/P Pulse O2 O2 Flow FiO2 Mean Ox Delivery Rate 09/04 0611 50 09/04 0400 98 Ventilator 50% 09/04 0338 50 09/04 0040 50 09/04 0000 98.9 09/04 0000 98 Ventilator 50% 09/04 0000 98.6 107 22 122/65 98 Ventilator 50% 09/03 2230 101.0 09/03 2039 50 09/03 2000 93 Ventilator 50% 09/03 1612 50 09/03 1559 94 Ventilator 50% 09/03 1559 98.7 110 22 124/60 94 Ventilator 50% 09/03 1350 50 09/03 1200 95 Ventilator 50% 09/03 1121 50 09/03 0830 45 09/03 0800 97.7 94 22 120/70 95 Ventilator 45% Intake & Output 09/04 0800 09/04 0000 09/03 1600 Intake Total 1802 1498 Output Total 820 1755 Balance 982 -257 Intake, IV 1150 818 Intake, Tube 502 560 Feeding Intake, Tube 150 120 Irrigant Output, 20 30 Drainage Output, Stool 300 100 Output, Urine 500 1625 Physical Exam Other Physical Findings: She is awake and alert on the ventilator in no apparent distress Lungs are clear Heart regular rhythm with no murmur Abdomen is soft, nontender with positive bowel sounds; incision is clean, with no erythema or drainage; colostomy with liquid stool; right upper quadrant drain with seropurulent fluid; left lower quadrant drain with minimal serosanguineous fluid Extremities 1-2+ edema both lower extremities; PICC in the right upper extremity with no inflammation at the site [place] catheter remains in place Results Last 24 Hours of Lab Results: Laboratory Tests 09/04 09/03 0435 2200 Chemistry Sodium (137 - 145 mmol/L) 134 L Potassium (3.5 - 5.1 mmol/L) 3.6 Chloride (98 - 107 mmol/L) 107 Carbon Dioxide (22 - 30 mmol/L) 19 L Anion Gap (5 - 16) 7 BUN (7 - 17 mg/dL) 11 Creatinine (0.5 - 1.0 mg/dL) 0.6 Estimated GFR (>60 ml/min) > 60 Glucose (65 - 99 mg/dL) 95 Calcium (8.4 - 10.2 mg/dL) 7.0 L Phosphorus (2.5 - 4.5 mg/dL) 3.6 Magnesium (1.6 - 2.3 mg/dL) 1.5 L Total Bilirubin (0.2 - 1.3 mg/dL) 0.4 AST (14 - 36 U/L) 17 ALT (9 - 52 U/L) 23 Albumin (3.5 - 5.0 g/dL) 1.5 L Hematology CBC w Diff MAN DIFF ORDERED Cancelled WBC (4.8 - 10.8 /CUMM) 36.8 *H Cancelled RBC (4.20 - 5.40 /CUMM) 2.58 L Cancelled Hgb (12.0 - 16.0 G/DL) 8.0 L Cancelled Hct (37 - 47 %) 23.9 L Cancelled MCV (81.0 - 99.0 FL) 92.6 Cancelled MCH (27.0 - 31.0 PG) 31.0 Cancelled RDW (11.5 - 14.5 %) 15.8 H Cancelled Plt Count (130 - 400 /CUMM) 281 Cancelled MPV (7.4 - 10.4 FL) 9.9 Cancelled Gran % (42.2 - 75.2 %) 96.2 H Lymphocytes % (20.5 - 51.1 %) 1.5 L Monocytes % (1.7 - 9.3 %) 2.2 Eosinophils % (0 - 5 %) 0.1 Basophils % (0.0 - 2.0 %) 0 L Absolute Granulocytes (1.4 - 6.5 /CUMM) 35.4 H Segmented Neutrophils (42.2 - 75.2 %) 88 H Band Neutrophils (0.0 - 5.0 %) 2 Absolute Lymphocytes (1.2 - 3.4 /CUMM) 0.6 L Lymphocytes (20.5 - 51.1 %) 6 L Monocytes (1.7 - 9.3 %) 4 Absolute Monocytes (0.10 - 0.60 /CUMM) 0.8 H Absolute Eosinophils (0.0 - 0.7 /CUMM) 0 Absolute Basophils (0.0 - 0.2 /CUMM) 0 Platelet Estimate (ADEQUATE) ADEQUATE Hypochromic-Microcytic 1+ Anisocytosis 1+ PUBS MCHC (33.0 - 37.0 G/DL) 33.5 Cancelled 09/03 1700 Hematology CBC w Diff MAN DIFF ORDERED WBC (4.8 - 10.8 /CUMM) 42.8 *H RBC (4.20 - 5.40 /CUMM) 2.87 L Hgb (12.0 - 16.0 G/DL) 8.9 L Hct (37 - 47 %) 26.3 L MCV (81.0 - 99.0 FL) 91.3 MCH (27.0 - 31.0 PG) 30.8 RDW (11.5 - 14.5 %) 15.6 H Plt Count (130 - 400 /CUMM) 270 MPV (7.4 - 10.4 FL) 9.7 Gran % (42.2 - 75.2 %) 95.9 H Lymphocytes % (20.5 - 51.1 %) 1.5 L Monocytes % (1.7 - 9.3 %) 2.5 Eosinophils % (0 - 5 %) 0.1 Basophils % (0.0 - 2.0 %) 0 L Absolute Granulocytes (1.4 - 6.5 /CUMM) 41.0 H Segmented Neutrophils (42.2 - 75.2 %) 9 L Absolute Lymphocytes (1.2 - 3.4 /CUMM) 0.7 L Monocytes (1.7 - 9.3 %) 1 L Absolute Monocytes (0.10 - 0.60 /CUMM) 1.1 H Absolute Eosinophils (0.0 - 0.7 /CUMM) 0 Absolute Basophils (0.0 - 0.2 /CUMM) 0 Nucleated RBCs (0.0 - 0.0 /100WBC) 1 H Platelet Estimate (ADEQUATE) VERIFIED BY SMEAR Polychromasia 1+ PUBS MCHC (33.0 - 37.0 G/DL) 33.8 Other Body Source Fld Total RBCs Counted (%) 100 Last 24 Hours of [place] Results: Right upper quadrant fluid collection September 01 negative Left lower quadrant fluid collection September 01 negative Right pleural fluid culture September 02 negative Recent Imaging Studies: Chest x-ray September 04 bibasilar densities and/or effusions Assessment/Plan Impression: Fever spike overnight with persistent leukocytosis despite drainage of purulent fluid from the right upper quadrant collection 3 days ago, with culture from this fluid as well as from the fluid in the left lower quadrant negative, and despite continued treatment with Meropenem and Fluconazole for a polymicrobial peritonitis secondary to a perforated sigmoid colon now 9 days status post Granger's procedure. The right pleural fluid appears transudative with the culture negative and, therefore, is not suggestive of a infection. Pseudomonas was isolated from the sputum culture, though I am not convinced she has pneumonial; nevertheless the Meropenem will cover this. The persistent leukocytosis and recurrent fever may be secondary to an ongoing intra-abdominal process, but she is also at increased risk for healthcare associated infections, such as line sepsis, urine tract infection, ventilator assisted pneumonia and C. difficile. Suggestion: 1. Stool for C. difficile 2. Repeat blood cultures 2, urine culture and sputum culture 3. Consider repeat CT of the abdomen and pelvis if fevers and/or leukocytosis persist and above negative 4. Continue Meropenem and Fluconazole
--- NOTE | 2016-09-04 08:31 | PN- Resident CRCU ---
Subjective HPI/CRCU Issues: Patient was seen and examined this morning, she is awake and alert, intubated, denied pain in chest or abdomen. No overnight events reported overnight. 24 Hour Events: Temperature 99.3, MAXIMUM TEMPERATURE 101 Bulks lowest 90, highest 112 Blood pressure lowest 110/60, highest 154/70 AC 450/20/5/50% saturating 99% Intake 5073, output 3530 Continues to be on D5 half-normal saline 75cc/hr and fentanyl drip Objective Vital Signs & I&O Last 8 Hrs of Vitals and I&O: 11 Exam General Appearance: alert, awake, intubated Head: atraumatic, normal appearance Ears, Nose, Throat: normal pharynx, normal ENT inspection Neck: normal inspection, supple, full range of motion Respiratory: chest non-tender Cardiovascular: regular rate/rhythm Gastrointestinal: normal bowel sounds, soft, non-tender, colostomy bag Extremities: normal inspection, normal capillary refill, normal range of motion, RAFAEL +1 bilateral Cranial Nerves: normal hearing, PERRL Current Medications: Current Medications Sig/Ry Start time Last Medication Dose Route Stop Time Status Admin Acetaminophen 1,000 MG .STK-MED ONE 09/038 DC IV 09/03 221 Acetaminophen 1,000 MG Q6P PRN 08/27 0230 09/03 N/A 1 UNIT IV 2230 Albuterol Sulfate 3 ML EVERY 4 HRS/AWAKE 09/02 1999 AC 09/04 INH 1150 Albuterol Sulfate 3 ML Q4H PRN 08/27 1000 AC 08/28 INH 1309 Chlorhexidine 15 ML TID 08/29 1000 09/04 Gluconate PO 1111 Dextrose/Sodium 1,000 ML Q13H 08/30 0445 DC 09/04 Chloride IV 0212 Enoxaparin Sodium 40 MG DAILY 09/03 1000 09/04 SC 1109 Fentanyl Citrate 1,000 MCG Q10H 09/02 2000 09/04 Dextrose/Water 250 ML IV 1127 Fluconazole 400 MG Q24 08/30 1045 09/04 Sodium Chloride 200 ML IV 1109 Lorazepam 2 MG Q4-PRN PRN 08/31 1730 AC 09/04 IV 1109 Magnesium Oxide 400 MG ONE ONE 09/04 0845 CAN PO 09/04 0846 Magnesium Sulfate 1 GM Q2H 09/04 0845 DC 09/04 Dextrose/Water 100 ML IV 09/04 1244 1110 Meropenem 1 GM IQ8 09/01 1600 AC 09/04 IV 0839 Pantoprazole Sodium 40 MG DAILY 08/27 1000 AC 09/04 IV 1109 Phosphate 250 MG ONCE ONE 09/04 0830 DC 09/04 PO 09/04 0831 1109 Potassium Chloride 40 MEQ ONCE ONE 09/04 0845 DC 09/04 PO 09/04 0846 1110 Potassium Chloride 40 MEQ ONCE ONE 09/04 0715 CAN PO 09/04 0716 Impression/Plan Impression/Problem List Impression: Ms. Camacho is a 60 year old female with PMH anxiety, depression, COPD , prior episode of severe clostridium difficile infection in 2016, tobacco abuse and gastritis who presented to the [facility] ED after one week of altered mental status, decreased oral intake and possible withdrawl symptoms as her clonazepam was being titrated off per doctor instructions. She was found to be hypotensive, febrile and altered while in the [facility] ED. In the ED: Vital signs showed Tmax 101.5, HR 116, RR 20, BP 93/62 and O2 saturation 90% on room air. Labs were significant for WBC 18.1 with 37 bands, H&H 13.7/41.6, Plt 623, Na 143 , K 3.6, Cl 107, HCO3 16, BUN/cre 28/1.8, Glu 98, Lactic acid 2.9, AST 62, ALT 42, CK 370, troponin 0.05, proBNP 46278, amylase 153, lipase <10, and UA with high protein, positive nitrite, high urobilinogen, 50 WBCs, moderate bacteria and large hgb. CXR showed no acute pulmonary process. Head CT was negative for acute pathology. Patient was admitted to the ICU and the following is the current management: 1. Severe sepsis secondary to peritonitis from perforated sigmoid colon with abscess formation * Patient febrile, + leukocytosis with bandemia, hypotensive and tachycardic on admission * Post-op day #9 from Harmann's procedure with Dr. Marcello MD; patient remains intubated off pressors or sedation, ostomy pink with + green liquid stool * Patient day 2 s/p IR guided drainage of RUQ and LLQ fluid with drains in place * RUQ draining purulent material; growing gram + cocci so far, final cultures pending * ID consult appreciated, continue to follow recommendations * LRC shows pseudomonas resistant to zosyn; continue IV fluconazole to 400 g IV Q24 hours and Meropenem * TMAX of 101 while continuing to be on Meropenem, will obtain CT abdomen pelvis with IV contrast, griggs culture * DC IVF, continue tube feeds * Surgery follow up appreciated with Dr. Marcello MD * IV protonix while intubated 2. Metabolic encephalopathy * On admission, likely secondary to severe sepsis from sigmoid perforation/ peritonitis * CT head negative for acute intracranial pathology * Hold all sedatives, hold off all home psych meds until mental status improves 3. Acute hypoxemic respiratory failure * Patient initially placed on non-rebreather but was transitioned to high flow nasal cannula/ BiPAP due to tachypnea/apparent respiratory distress * Patient tolerated BiPAP well but was intubated for Ho's procedure; FiO2 requirements stable at 50% with CXR showing biabilsar nonspecific airpsace disease * Aspiration precautions * No CPAP trial until FiO2 at least 40% * Noted bilateral pleural effusions on CT chest * Patient having US to examine size of pleural effusions, if tapable will have IR drain today 4. SIERRA * Likely prerenal in the setting of severe sepsis * Improved, continue IVF hydration * Monitor renal function and electrolytes with ICU bundle * Monitor urine output, strict Is/Os 5. Sinus tachycardia with T wave changes, IMPROVED * Continuous telemetry monitoring * Troponins negative x 3 * Echo showed normal global LV function without wall motion abnormalities and normal pulm artery systolic pressure * Monitor vital signs closely 6. Thrombocytopenia, IMPROVIN * Plt this AM increased to 188 (623 on admission) * Likely 2/2 coagulopathly from sepsis * 4Ts score placed patient at low risk for HIT (<5%) * Will resume DVTP after thoracentesis as Plt now in acceptable range 7. Acute blood loss anemia * H&H stable at 8.2/24.3 this AM * Total 1 U PRBC given since admission * Follow up CBC daily FULL CODE Diet: Tube feeds DVTP: ALPS Pain: Fentanyl drip Problem List: 1. Status post Ho's procedure Pain Ratin Tomorrow's Labs & Rationales: CBC, ICU bundle Plan DVT/Prophylaxis: pharmacological
--- NOTE | 2016-09-04 10:14 | PN- CRCU ---
Subjective HPI/Critical Care Issues: Intubated Is on fentanyl sedated MAXIMUM TEMPERATURE is 101 Blood pressure and vital signs are stable level patient has become more hypoxemic now on 50% FiO2 Adequate diuresis noted yesterday but patient is still positive by 2 L Continues to be on D5 half-normal saline and fentanyl Objective Current Medications: Current Medications Sig/Ry Start time Last Medication Dose Route Stop Time Status Admin Acetaminophen 1,000 MG .STK-MED ONE 09/03 2217 DC IV 09/03 221 Acetaminophen 1,000 MG Q6P PRN 08/27 0230 AC 09/03 N/A 1 UNIT IV 2230 Albuterol Sulfate 3 ML EVERY 4 HRS/AWAKE 09/02 1999 AC 09/04 INH 0846 Albuterol Sulfate 3 ML Q4H PRN 08/27 1000 AC 08/28 INH 1309 Chlorhexidine 15 ML TID 08/29 1000 AC 09/03 Gluconate PO 2200 Dextrose/Sodium 1,000 ML Q13H 08/30 0445 AC 09/04 Chloride IV 0212 Enoxaparin Sodium 40 MG DAILY 09/03 1000 AC 09/03 SC 0842 Fentanyl Citrate 1,000 MCG Q10H 09/02 2000 AC 09/03 Dextrose/Water 250 ML IV 1942 Fluconazole 400 MG Q24 08/30 1045 AC 09/03 Sodium Chloride 200 ML IV 0842 Furosemide 20 MG ONCE ONE 09/03 1115 DC 09/03 IV 09/03 1116 1240 Lorazepam 2 MG Q4-PRN PRN 08/31 1730 AC 09/03 IV 1937 Magnesium Oxide 400 MG ONE ONE 09/04 0845 CAN PO 09/04 0846 Magnesium Sulfate 1 GM Q2H 09/04 0845 AC Dextrose/Water 100 ML IV 09/04 1244 Meropenem 1 GM IQ8 09/01 1600 AC 09/04 IV 0839 Pantoprazole Sodium 40 MG DAILY 08/27 1000 AC 09/03 IV 0842 Phosphate 250 MG ONCE ONE 09/04 0830 DC PO 09/04 0831 Potassium Chloride 40 MEQ ONCE ONE 09/04 0845 DC PO 09/04 0846 Potassium Chloride 40 MEQ ONCE ONE 09/04 0715 CAN PO 09/04 0716 Vital Signs & I&O Last 24 Hrs of Vitals and I&O: Vital Signs Date Time Temp Pulse Resp B/P B/P Pulse O2 O2 Flow FiO2 Mean Ox Delivery Rate 09/04 0840 50 09/04 0611 50 09/04 0400 98 Ventilator 50% 09/04 0338 50 09/04 0040 50 09/04 0000 98.9 09/04 0000 98 Ventilator 50% 09/04 0000 98.6 107 22 122/65 98 Ventilator 50% 09/03 2230 101.0 09/03 2039 50 09/03 2000 93 Ventilator 50% 09/03 1612 50 09/03 1559 94 Ventilator 50% 09/03 1559 98.7 110 22 124/60 94 Ventilator 50% 09/03 1350 50 09/03 1200 95 Ventilator 50% 09/03 1121 50 Intake & Output 09/04 1600 09/04 0800 09/04 0000 Intake Total 1779 1802 Output Total 1010 820 Balance 769 982 Intake, IV 1088 1150 Intake, Tube 571 502 Feeding Intake, Tube 120 150 Irrigant Output, 110 20 Drainage Output, Stool 300 300 Output, Urine 600 500 Laboratory Tests 09/04 09/03 0435 2200 Chemistry Sodium (137 - 145 mmol/L) 134 L Potassium (3.5 - 5.1 mmol/L) 3.6 Chloride (98 - 107 mmol/L) 107 Carbon Dioxide (22 - 30 mmol/L) 19 L Anion Gap (5 - 16) 7 BUN (7 - 17 mg/dL) 11 Creatinine (0.5 - 1.0 mg/dL) 0.6 Estimated GFR (>60 ml/min) > 60 Glucose (65 - 99 mg/dL) 95 Calcium (8.4 - 10.2 mg/dL) 7.0 L Phosphorus (2.5 - 4.5 mg/dL) 3.6 Magnesium (1.6 - 2.3 mg/dL) 1.5 L Total Bilirubin (0.2 - 1.3 mg/dL) 0.4 AST (14 - 36 U/L) 17 ALT (9 - 52 U/L) 23 Albumin (3.5 - 5.0 g/dL) 1.5 L Hematology CBC w Diff MAN DIFF ORDERED Cancelled WBC (4.8 - 10.8 /CUMM) 36.8 *H Cancelled RBC (4.20 - 5.40 /CUMM) 2.58 L Cancelled Hgb (12.0 - 16.0 G/DL) 8.0 L Cancelled Hct (37 - 47 %) 23.9 L Cancelled MCV (81.0 - 99.0 FL) 92.6 Cancelled MCH (27.0 - 31.0 PG) 31.0 Cancelled RDW (11.5 - 14.5 %) 15.8 H Cancelled Plt Count (130 - 400 /CUMM) 281 Cancelled MPV (7.4 - 10.4 FL) 9.9 Cancelled Gran % (42.2 - 75.2 %) 96.2 H Lymphocytes % (20.5 - 51.1 %) 1.5 L Monocytes % (1.7 - 9.3 %) 2.2 Eosinophils % (0 - 5 %) 0.1 Basophils % (0.0 - 2.0 %) 0 L Absolute Granulocytes (1.4 - 6.5 /CUMM) 35.4 H Segmented Neutrophils (42.2 - 75.2 %) 88 H Band Neutrophils (0.0 - 5.0 %) 2 Absolute Lymphocytes (1.2 - 3.4 /CUMM) 0.6 L Lymphocytes (20.5 - 51.1 %) 6 L Monocytes (1.7 - 9.3 %) 4 Absolute Monocytes (0.10 - 0.60 /CUMM) 0.8 H Absolute Eosinophils (0.0 - 0.7 /CUMM) 0 Absolute Basophils (0.0 - 0.2 /CUMM) 0 Platelet Estimate (ADEQUATE) ADEQUATE Hypochromic-Microcytic 1+ Anisocytosis 1+ PUBS MCHC (33.0 - 37.0 G/DL) 33.5 Cancelled 09/03 09/03 1700 0345 Chemistry Sodium (137 - 145 mmol/L) 134 L Potassium (3.5 - 5.1 mmol/L) 4.2 Chloride (98 - 107 mmol/L) 111 H Carbon Dioxide (22 - 30 mmol/L) 17 L Anion Gap (5 - 16) 6 BUN (7 - 17 mg/dL) 10 Creatinine (0.5 - 1.0 mg/dL) 0.7 Estimated GFR (>60 ml/min) > 60 Glucose (65 - 99 mg/dL) 97 Calcium (8.4 - 10.2 mg/dL) 6.8 L Phosphorus (2.5 - 4.5 mg/dL) 3.6 Magnesium (1.6 - 2.3 mg/dL) 1.7 Total Bilirubin (0.2 - 1.3 mg/dL) 0.4 AST (14 - 36 U/L) 14 ALT (9 - 52 U/L) 35 Lactate Dehydrogenase (313 - 618 U/L) 480 Albumin (3.5 - 5.0 g/dL) 1.5 L Hematology CBC w Diff MAN DIFF ORDERED MAN DIFF ORDERED WBC (4.8 - 10.8 /CUMM) 42.8 *H 37.8 *H RBC (4.20 - 5.40 /CUMM) 2.87 L 2.66 L Hgb (12.0 - 16.0 G/DL) 8.9 L 8.0 L Hct (37 - 47 %) 26.3 L 24.4 L MCV (81.0 - 99.0 FL) 91.3 91.7 MCH (27.0 - 31.0 PG) 30.8 30.2 RDW (11.5 - 14.5 %) 15.6 H 15.6 H Plt Count (130 - 400 /CUMM) 270 236 MPV (7.4 - 10.4 FL) 9.7 10.1 Gran % (42.2 - 75.2 %) 95.9 H Lymphocytes % (20.5 - 51.1 %) 1.5 L Monocytes % (1.7 - 9.3 %) 2.5 Eosinophils % (0 - 5 %) 0.1 Basophils % (0.0 - 2.0 %) 0 L Absolute Granulocytes (1.4 - 6.5 /CUMM) 41.0 H Segmented Neutrophils (42.2 - 75.2 %) 9 L 95 H Band Neutrophils (0.0 - 5.0 %) 2 Absolute Lymphocytes (1.2 - 3.4 /CUMM) 0.7 L Lymphocytes (20.5 - 51.1 %) 1 L Monocytes (1.7 - 9.3 %) 1 L 1 L Absolute Monocytes (0.10 - 0.60 /CUMM) 1.1 H Absolute Eosinophils (0.0 - 0.7 /CUMM) 0 Absolute Basophils (0.0 - 0.2 /CUMM) 0 Metamyelocytes (0.0 - 1.0 %) 1 Nucleated RBCs (0.0 - 0.0 /100WBC) 1 H Platelet Estimate (ADEQUATE) VERIFIED BY SMEAR ADEQUATE Polychromasia 1+ Hypochromic-Microcytic 2+ Poikilocytosis 1+ Anisocytosis 1+ Microcytic Cells 1+ Macrocytic Cells 1+ Target Cells RARE Stomatocytes 1+ PUBS MCHC (33.0 - 37.0 G/DL) 33.8 33.0 Other Body Source Fld Total RBCs Counted (%) 100 09/02 09/02 09/02 2130 1528 1050 Chemistry Sodium (137 - 145 mmol/L) 133 L Potassium (3.5 - 5.1 mmol/L) 3.6 Chloride (98 - 107 mmol/L) 110 H Carbon Dioxide (22 - 30 mmol/L) 18 L Anion Gap (5 - 16) 5 BUN (7 - 17 mg/dL) 11 Creatinine (0.5 - 1.0 mg/dL) 0.7 Estimated GFR (>60 ml/min) > 60 Glucose (65 - 99 mg/dL) 104 H Calcium (8.4 - 10.2 mg/dL) 6.9 L Phosphorus (2.5 - 4.5 mg/dL) 3.6 Magnesium (1.6 - 2.3 mg/dL) 1.8 Total Bilirubin (0.2 - 1.3 mg/dL) 0.3 AST (14 - 36 U/L) 15 ALT (9 - 52 U/L) 37 Albumin (3.5 - 5.0 g/dL) 1.5 L Coagulation PT (9.4 - 12.5 SEC) 14.1 H INR (0.90 - 1.19) 1.35 H Hematology CBC w Diff NO MAN DIFF REQ WBC (4.8 - 10.8 /CUMM) 33.9 *H RBC (4.20 - 5.40 /CUMM) 2.61 L Hgb (12.0 - 16.0 G/DL) 8.1 L Hct (37 - 47 %) 24.0 L MCV (81.0 - 99.0 FL) 92.2 MCH (27.0 - 31.0 PG) 30.9 RDW (11.5 - 14.5 %) 16.0 H Plt Count (130 - 400 /CUMM) 222 MPV (7.4 - 10.4 FL) 10.0 Gran % (42.2 - 75.2 %) 96.6 H Lymphocytes % (20.5 - 51.1 %) 1.9 L Monocytes % (1.7 - 9.3 %) 1.1 L Eosinophils % (0 - 5 %) 0.4 Basophils % (0.0 - 2.0 %) 0 L Absolute Granulocytes (1.4 - 6.5 /CUMM) 32.7 H Absolute Lymphocytes (1.2 - 3.4 /CUMM) 0.7 L Absolute Monocytes (0.10 - 0.60 /CUMM) 0.4 Absolute Eosinophils (0.0 - 0.7 /CUMM) 0.1 Absolute Basophils (0.0 - 0.2 /CUMM) 0 PUBS MCHC (33.0 - 37.0 G/DL) 33.5 Miscellaneous Phlebotomy Draw Site RT THORA Other Body Source Pleural pH (PH) 7.40 Microbiology Date/Time Procedure - Status Source Growth 09/04 09 Urine Culture - ORD URINE ROUT 09/04 0900 Respiratory Culture - ORD LOWER RESP 09/04 0900 Gram Stain - ORD LOWER RESP 09/04 0900 Clostridium difficile Toxin A & B - ORD STOOL 09/04 09 Blood Culture - ORD BLOOD 09/04 0900 Blood Culture - ORD BLOOD 09/02 UNK Body Fluid Culture - RES BODY FLUID 09/02 UNK Gram Stain - RES BODY FLUID 09/01 1140 Body Fluid Culture - COMP BODY FLUID 09/01 1140 Gram Stain - COMP BODY FLUID 09/01 1100 Body Fluid Culture - COMP BODY FLUID 09/01 1100 Gram Stain - COMP BODY FLUID Impression/Plan Impression/Plan Impression/Plan: Exam General Appearance: well developed/nourished, no apparent distress, sedated, intubated Head: atraumatic, normal appearance Ears, Nose, Throat: hearing grossly normal, moist mucus membranes Neck: normal inspection, supple Respiratory: Rhonchi bilateral lung rosenbaum but aeration improving Cardiovascular: regular rate/rhythm Gastrointestinal: Ostomy pink with good stool output, midline incision covered by dry clean gauze Extremities: Bilateral upper extremity pitting edema Cranial Nerves: normal hearing, PERRL Skin: Normal color, clean and dry around midline incision Skin Temp/Moisture Exam: Warm/Dry IMPRESSION This is a lady with pericolic abscess status post drainage and sigmoid colectomy with end colostomy with status post drainage for fluid placement in the right upper quadrant and left lower abdomen with bilateral pleural fluid, ongoing fever now on meropenem and fluconazole. Issues include postop respiratory failure related to above-mentioned problems Ongoing infection intra-abdominally, with new onset fever with persistent leukocytosis despite drainage of purulent fluid from the right upper quadrant now on meropenem and fluconazole Pleural effusion bilaterally appears most likely related to a transudative effusion Significant thrombocytopenia now improved Persistent leukocytosis Pseudomonas intra-abdominal sepsis and intra-abdominal fungal infection RECOMMENDATION Continue mechanical ventilator Start pressure-support ventilation CT scan of the abdomen and pelvis with IV contrast today Repeat blood cultures Discontinue IV fluids Gentle low-grade sedation Continue antibiotics Continue tube feedings [place] patient is critically ill total time spent 45 minutes
[2016-09-04 12:00] VITALS: BP 122/69
[2016-09-04 16:00] VITALS: BP 120/70
--- NOTE | 2016-09-04 18:19 | Event Note ---
Event Note Event Note: CT abdomen and pelvis with IV contrast was ordered today 09/04/16. We tried to contact patient's sister to obtain consent for IV contrast Maude Giraldo on phone # [phone] I called 5 times and final left voice message asking for call back. Resident was made aware. Will continue to follow.
--- NOTE | 2016-09-04 18:37 | NUR ---
PT HAS BEEN ORDERED CT ABDOMEN WITH IV CONTRAST. ICU OFFICE TECHNICIAN IS WAITING FOR A CALLBACK FROM PTS FAMILY TO INFORM THEM AND OBTAIN CONSENT FOR THE CONTRAST.
--- NOTE | 2016-09-04 22:32 | CT SCAN REPORT ---
EXAMINATION: CT CHEST, ABDOMEN AND PELVIS WITH CONTRAST CLINICAL INFORMATION: Increasing white blood cell count. COMPARISON: Multiple priors, most recent CT abdomen and pelvis dated 08/31/[address] chest, abdomen, pelvis dated 08/26/2016. TECHNIQUE: Contiguous axial thin section helical images of the chest, abdomen and pelvis were performed following the administration of oral contrast and 94 mL mL of intravenous Optiray 320. The data set was reformatted in the coronal and sagittal planes and reviewed on an independent workstation. DLP: 785.08 mGy-cm. FINDINGS: LUNGS: There are small bilateral pleural effusions with adjacent atelectasis versus infiltrates, not significantly changed since the prior examination. There has been interval collapse of the right middle lobe, new since the prior examination. MEDIASTINUM: A right-sided central venous catheter is seen with its tip terminating in the SVC. The endotracheal tube is noted with its tip terminating above the evelio. An endogastric tube is seen within the esophagus with its tip terminating in the stomach. There is no cardiomegaly or pericardial effusion. There is no thoracic aortic aneurysm or dissection. PLEURA: There are small bilateral pleural effusions, not significantly changed since the prior examination. There is no pneumothorax. CHEST WALL/AXILLA: Diffuse soft tissue anasarca. No lymphadenopathy. LIVER, GALLBLADDER, BILIARY TREE: There has been interval placement of a right-sided catheter with its tip coiled within the perihepatic free fluid. There is moderate perihepatic free fluid which demonstrates peripheral enhancement. This could indicate infection. Right and left lobe hepatic cysts are redemonstrated. There is no intrahepatic biliary ductal dilatation. The gallbladder demonstrates mild wall enhancement, which may be reactive. There are no gallstones. PANCREAS: Unremarkable. SPLEEN: There are wedge-shaped areas of hypoenhancement, which could represent splenic infarcts in the appropriate clinical setting. ADRENAL GLANDS AND KIDNEYS: The adrenal glands are unremarkable. There is no hydronephrosis or nephrolithiasis. URETERS AND BLADDER: The urinary bladder is nondistended with a Fulton catheter in place. BOWEL LOOPS: There is no large or small bowel obstruction. A left-sided colostomy is unchanged. Bowel wall sutures are redemonstrated within the pelvis. There has been interval placement of a left lower quadrant peritoneal pigtail catheter. No intra-abdominal free air. LYMPHOVASCULAR STRUCTURES: There is no abdominal aortic dilatation. There are atherosclerotic calcifications throughout the abdominal aorta and its branch vessels. PELVIC VISCERA: Incompletely visualized and poorly evaluated. BONES: Anterolisthesis of L4 on L5 with associated degenerative changes. No lytic or blastic osseous lesion. ADDITIONAL FINDINGS: There is diffuse subcutaneous anasarca. IMPRESSION: 1. New complete collapse of the right middle lobe. Small bilateral pleural effusions with adjacent atelectasis versus infiltrates, not significantly changed since the prior examination. 2. Unchanged moderate peritoneal fluid, most prominent in the perihepatic region. Peripheral enhancement of the peritoneal fluid which could indicate infection. Interval placement of right hepatic and left lower abdominal pigtail catheters. 3. Wedge-shaped areas of hypoenhancement within the spleen, which could represent splenic infarcts in the appropriate clinical setting. 4. Unchanged left-sided colostomy. No large or small bowel obstruction. 5. Diffuse anasarca.
[2016-09-05] VITALS: BP 151/79
--- NOTE | 2016-09-05 05:46 | PN- General Surgery ---
See Addendum Subjective Subjective: Remains intubated. Responsive to voice. Tolerating TF. +ostomy fxn. Repeat CT CAP last evening- see results below. No major issues overnight. afebrile Objective Vital Signs and I&Os Vital Signs Date Time Temp Pulse Resp B/P B/P Pulse O2 O2 Flow FiO2 Mean Ox Delivery Rate 09/05 0400 96 Ventilator 50% 09/05 0319 50 09/05 0128 50 09/05 0000 98.3 104 28 151/79 95 Ventilator 50% 09/05 0000 95 Ventilator 50% 09/04 2225 50 09/04 2040 50 09/04 2000 96 Ventilator 55% 09/04 1655 50 09/04 1600 96 Ventilator 50% 09/04 1600 98.8 104 26 120/70 96 Ventilator 50% 09/04 1449 50 09/04 1200 95 Ventilator 35% 09/04 1200 98.2 106 22 122/69 96 Ventilator 50% 09/04 1144 50 09/04 0840 50 09/04 0800 96 Ventilator 35% 09/04 0800 98.0 104 26 122/80 96 Ventilator 35% 09/04 0611 50 Intake & Output 09/05 0800 09/05 0000 09/04 1600 09/04 0800 09/04 0000 09/03 1600 Intake Total 856 1524 1779 1802 1498 Output Total 8314 064 5666 820 1755 Balance -344 714 769 982 -257 Intake, IV 490 382 1561 1150 818 Intake, Tube 286 560 571 502 560 Feeding Intake, Tube 150 120 120 150 120 Irrigant Output, 100 30 110 20 30 Drainage Output, Stool 300 300 300 300 100 Output, Urine 800 480 644 487 7905 Drain 1: 20/8h, 140+/24h Drain 2: 10/8h, 20/24h Physical Exam: GEN: intubated, responsive to voice CARD: S1S2 RRR PULM: intubated, rhoncherous anteriorly ABD: soft, nt, nd, midline with khloe, inferior portion opened with gauze dressing, ostomy with gas and liquid green stool in bag, bag leaking into midline incision- RN changing appliance and dsg at this time, stoma pink, retracted. RUQ drain: with small amount of seropurulent drainage, LLQ drain with minimal serous drainage EXT: alps on bl, +edema bl Current Medications: Current Medications Sig/Ry Start time Last Medication Dose Route Stop Time Status Admin Acetaminophen 1,000 MG Q6P PRN 08/27 0230 09/03 N/A 1 UNIT IV 2230 Albuterol Sulfate 3 ML EVERY 4 HRS/AWAKE 09/02 1999 AC 09/04 INH 2042 Albuterol Sulfate 3 ML Q4H PRN 08/27 1000 AC 08/28 INH 1309 Chlorhexidine 15 ML TID 08/29 1000 09/04 Gluconate PO 2255 Dextrose/Sodium 1,000 ML Q13H 08/30 0445 PA 09/04 Chloride IV 0212 Enoxaparin Sodium 40 MG DAILY 09/03 1000 09/04 SC 1109 Fentanyl Citrate 1,000 MCG Q10H 09/02 2000 09/05 Dextrose/Water 250 ML IV 0058 Fluconazole 400 MG Q24 08/30 1045 09/04 Sodium Chloride 200 ML IV 1109 Lorazepam 2 MG Q4-PRN PRN 08/31 1730 09/05 IV 0500 Magnesium Oxide 400 MG ONE ONE 09/04 0845 CAN PO 09/04 0846 Magnesium Sulfate 1 GM Q2H 09/04 0845 DC 09/04 Dextrose/Water 100 ML IV 09/04 1244 1245 Meropenem 1 GM IQ8 09/01 1600 AC 09/05 IV 0101 Pantoprazole Sodium 40 MG DAILY 08/27 1000 AC 09/04 IV 1109 Phosphate 250 MG ONCE ONE 09/04 0830 DC 09/04 PO 09/04 0831 1109 Potassium Chloride 40 MEQ ONCE ONE 09/04 0845 DC 09/04 PO 09/04 0846 1110 Potassium Chloride 40 MEQ ONCE ONE 09/04 0715 CAN PO 09/04 0716 Results Last 48 Hours of Labs: Laboratory Tests 09/04 09/03 0435 2200 Chemistry Sodium (137 - 145 mmol/L) 134 L Potassium (3.5 - 5.1 mmol/L) 3.6 Chloride (98 - 107 mmol/L) 107 Carbon Dioxide (22 - 30 mmol/L) 19 L Anion Gap (5 - 16) 7 BUN (7 - 17 mg/dL) 11 Creatinine (0.5 - 1.0 mg/dL) 0.6 Estimated GFR (>60 ml/min) > 60 Glucose (65 - 99 mg/dL) 95 Calcium (8.4 - 10.2 mg/dL) 7.0 L Phosphorus (2.5 - 4.5 mg/dL) 3.6 Magnesium (1.6 - 2.3 mg/dL) 1.5 L Total Bilirubin (0.2 - 1.3 mg/dL) 0.4 AST (14 - 36 U/L) 17 ALT (9 - 52 U/L) 23 Albumin (3.5 - 5.0 g/dL) 1.5 L Hematology CBC w Diff MAN DIFF ORDERED Cancelled WBC (4.8 - 10.8 /CUMM) 36.8 *H Cancelled RBC (4.20 - 5.40 /CUMM) 2.58 L Cancelled Hgb (12.0 - 16.0 G/DL) 8.0 L Cancelled Hct (37 - 47 %) 23.9 L Cancelled MCV (81.0 - 99.0 FL) 92.6 Cancelled MCH (27.0 - 31.0 PG) 31.0 Cancelled RDW (11.5 - 14.5 %) 15.8 H Cancelled Plt Count (130 - 400 /CUMM) 281 Cancelled MPV (7.4 - 10.4 FL) 9.9 Cancelled Gran % (42.2 - 75.2 %) 96.2 H Lymphocytes % (20.5 - 51.1 %) 1.5 L Monocytes % (1.7 - 9.3 %) 2.2 Eosinophils % (0 - 5 %) 0.1 Basophils % (0.0 - 2.0 %) 0 L Absolute Granulocytes (1.4 - 6.5 /CUMM) 35.4 H Segmented Neutrophils (42.2 - 75.2 %) 88 H Band Neutrophils (0.0 - 5.0 %) 2 Absolute Lymphocytes (1.2 - 3.4 /CUMM) 0.6 L Lymphocytes (20.5 - 51.1 %) 6 L Monocytes (1.7 - 9.3 %) 4 Absolute Monocytes (0.10 - 0.60 /CUMM) 0.8 H Absolute Eosinophils (0.0 - 0.7 /CUMM) 0 Absolute Basophils (0.0 - 0.2 /CUMM) 0 Platelet Estimate (ADEQUATE) ADEQUATE Hypochromic-Microcytic 1+ Anisocytosis 1+ PUBS MCHC (33.0 - 37.0 G/DL) 33.5 Cancelled 05/27 1700 Hematology CBC w Diff MAN DIFF ORDERED WBC (4.8 - 10.8 /CUMM) 42.8 *H RBC (4.20 - 5.40 /CUMM) 2.87 L Hgb (12.0 - 16.0 G/DL) 8.9 L Hct (37 - 47 %) 26.3 L MCV (81.0 - 99.0 FL) 91.3 MCH (27.0 - 31.0 PG) 30.8 RDW (11.5 - 14.5 %) 15.6 H Plt Count (130 - 400 /CUMM) 270 MPV (7.4 - 10.4 FL) 9.7 Gran % (42.2 - 75.2 %) 95.9 H Lymphocytes % (20.5 - 51.1 %) 1.5 L Monocytes % (1.7 - 9.3 %) 2.5 Eosinophils % (0 - 5 %) 0.1 Basophils % (0.0 - 2.0 %) 0 L Absolute Granulocytes (1.4 - 6.5 /CUMM) 41.0 H Segmented Neutrophils (42.2 - 75.2 %) 9 L Absolute Lymphocytes (1.2 - 3.4 /CUMM) 0.7 L Monocytes (1.7 - 9.3 %) 1 L Absolute Monocytes (0.10 - 0.60 /CUMM) 1.1 H Absolute Eosinophils (0.0 - 0.7 /CUMM) 0 Absolute Basophils (0.0 - 0.2 /CUMM) 0 Nucleated RBCs (0.0 - 0.0 /100WBC) 1 H Platelet Estimate (ADEQUATE) VERIFIED BY SMEAR Polychromasia 1+ PUBS MCHC (33.0 - 37.0 G/DL) 33.8 Other Body Source Fld Total RBCs Counted (%) 100 Today's labs pdg Cultures: intraabd fluid: final no growth cdiff neg pleural fluid cx: prelim neg sputum cx: pdg, gs= yeast bld cx pdg urine cx pdg Recent Imaging Studies: 09/04/16: CT CAP "1. New complete collapse of the right middle lobe. Small bilateral pleural effusions with adjacent atelectasis versus infiltrates, not significantly changed since the prior examination. 2. Unchanged moderate peritoneal fluid, most prominent in the perihepatic region. Peripheral enhancement of the peritoneal fluid which could indicate infection. Interval placement of right hepatic and left lower abdominal pigtail catheters. 3. Wedge-shaped areas of hypoenhancement within the spleen, which could represent splenic infarcts in the appropriate clinical setting. 4. Unchanged left-sided colostomy. No large or small bowel obstruction. 5. Diffuse anasarca." Assessment/Plan Assessment/Plan A: 60F POD10 sp Ho's 2/2 perf'ed sigmoid diverticulitis, day4 sp IR drainage x2 to abd collections (final cx=no growth), tolerating TF at goal with bowel fxn via ostomy, remains in critical condition, intubated in ICU, with significant leukocytosis, likely due to pulmonary issue/fungal pna as per cultures/CT. P: Ostomy/wound care TF for nutrition fu various cultures trend labs Continue care per primary/strategy planning consultant teams will marcie attending
[2016-09-05 06:07] LABS: ABSOLUTE BASOPHIL COUNT 0 /CUMM (0.0-0.2); ABSOLUTE EOSINOPHIL COUNT 0 /CUMM (0.0-0.7); ABSOLUTE GRANULOCYTE CT 29.7 /CUMM (1.4-6.5); ABSOLUTE LYMPH COUNT 0.5 /CUMM (1.2-3.4); ABSOLUTE MONOCYTE COUNT 0.9 /CUMM (0.10-0.60); BASOPHIL % 0 % (0.0-2.0); EOSINOPHIL % 0.1 % (0-5); GRANULOCYTE % 95.4 % (42.2-75.2); MEAN CORPUSCULAR HGB 30.4 PG (27.0-31.0); MEAN CORPUSCULAR HGB CONC 33.3 G/DL (33.0-37.0); MEAN CORPUSCULAR VOLUME 91.2 FL (81.0-99.0); MEAN PLATELET VOLUME 8.9 FL (7.4-10.4); PLATELET COUNT 381 /CUMM (130-400); RBC DISTRIBUTION WIDTH 15.5 % (11.5-14.5); RED BLOOD CELL CT 2.42 /CUMM (4.20-5.40)
[2016-09-05 06:24] LABS: WHITE BLOOD CELL COUNT 31.1 /CUMM (4.8-10.8)
--- NOTE | 2016-09-05 07:52 | PN- Resident CRCU ---
Subjective HPI/CRCU Issues: Patient seen and examined at bedside this AM. She is awake, alert and able to follow commands. Her right upper quadrant and left lower quadrant remain in place and continue to drain fluid, the right upper quadrant draining 140 cc over the last 24 hours and the left lower quadrant draining 20 cc over the last 24 hours. Colostomy continues to be pink/viable with great output, 900 cc over the last 24 hours. 24 Hour Events: Vital signs last 24 hours: T 97.6-99.0, HR 98-108, RR 20-28, BP 83-151/50-79, O2 90-96% on AV 20 TV 450 FiO2 50% and 5 PEEP. Total intake last 24 hours: 3106 cc Total output last 24 hours: 3340 cc Objective Vital Signs & I&O Last 8 Hrs of Vitals and I&O: T 97.6-99.0, HR 98-108, RR 20-28, BP 83-151/50-79, O2 90-96% on AV 20 TV 450 FiO2 50% and 5 PEEP. Exam General Appearance: well developed/nourished, no apparent distress, alert, awake , comfortable, intubated Head: atraumatic, normal appearance Ears, Nose, Throat: hearing grossly normal Neck: normal inspection, supple Respiratory: Bilateral rhonchi Cardiovascular: regular rate/rhythm Gastrointestinal: soft, non-tender, Ostomy with + output, pink and no surrounding erythema. Midline incision with stables clean, dry and no signs of infection. Extremities: normal inspection, no edema Cranial Nerves: normal hearing, PERRL Skin: normal color, warm/dry Nutrition Nutrition: tube feeding Current Medications: Current Medications Sig/Ry Start time Last Medication Dose Route Stop Time Status Admin Acetaminophen 1,000 MG Q6P PRN 08/27 0230 AC 09/03 N/A 1 UNIT IV 2230 Albuterol Sulfate 3 ML EVERY 4 HRS/AWAKE 09/02 1999 AC 09/05 INH 0809 Albuterol Sulfate 3 ML Q4H PRN 08/27 999 AC 08/28 INH 1309 Chlorhexidine 15 ML TID 08/29 999 AC 09/04 Gluconate PO 2255 Dextrose/Sodium 1,000 ML Q13H 08/30 0445 DC 09/04 Chloride IV 0212 Enoxaparin Sodium 40 MG DAILY 09/03 1000 AC 09/04 SC 1109 Fentanyl Citrate 1,000 MCG Q10H 09/02 2000 AC 09/05 Dextrose/Water 250 ML IV 0058 Fluconazole 400 MG Q24 08/30 1045 AC 09/04 Sodium Chloride 200 ML IV 1109 Furosemide 20 MG BID 09/05 1000 AC IV 09/05 2201 Lorazepam 2 MG Q4-PRN PRN 08/31 1730 AC 09/05 IV 0500 Magnesium Oxide 400 MG ONE ONE 09/05 0700 DC PO 09/05 0701 Magnesium Sulfate 1 GM Q2H 09/04 0845 DC 09/04 Dextrose/Water 100 ML IV 09/04 1244 1245 Meropenem 1 GM IQ8 09/01 1600 AC 09/05 IV 0101 Pantoprazole Sodium 40 MG DAILY 08/27 1000 AC 09/04 IV 1109 Potassium Chloride 60 MEQ ONCE ONE 09/05 07 DC PO 09/05 0701 Results Results: CDiff toxin from 09/04/16- NEGATIVE. 09/04/16 LRC: Gram negative rods, yeast, mold. CXR Findings: IMPRESSION: Endotracheal tube has been repositioned and is now 2.5 cm above the evelio. No change in overall expansion or appearance of the lungs with continued bibasilar opacities CT Scan Findings: Chest/Abdomen/Pelvis CT: IMPRESSION: 1. New complete collapse of the right middle lobe. Small bilateral pleural effusions with adjacent atelectasis versus infiltrates, not significantly changed since the prior examination. 2. Unchanged moderate peritoneal fluid, most prominent in the perihepatic region. Peripheral enhancement of the peritoneal fluid which could indicate infection. Interval placement of right hepatic and left lower abdominal pigtail catheters. 3. Wedge-shaped areas of hypoenhancement within the spleen, which could represent splenic infarcts in the appropriate clinical setting. 4. Unchanged left-sided colostomy. No large or small bowel obstruction. 5. Diffuse anasarca. Impression/Plan Impression/Problem List Impression: Ms. Camacho is a 60 year old female with PMH anxiety, depression, COPD , prior episode of severe clostridium difficile infection in 2016, tobacco abuse and gastritis who presented to the [facility] ED after one week of altered mental status, decreased oral intake and possible withdrawl symptoms as her clonazepam was being titrated off per doctor instructions. She was found to be hypotensive, febrile and altered while in the [facility] ED. In the ED: Vital signs showed Tmax 101.5, HR 116, RR 20, BP 93/62 and O2 saturation 90% on room air. Labs were significant for WBC 18.1 with 37 bands, H&H 13.7/41.6, Plt 623, Na 143 , K 3.6, Cl 107, HCO3 16, BUN/cre 28/1.8, Glu 98, Lactic acid 2.9, AST 62, ALT 42, CK 370, troponin 0.05, proBNP 93081, amylase 153, lipase <10, and UA with high protein, positive nitrite, high urobilinogen, 50 WBCs, moderate bacteria and large hgb. CXR showed no acute pulmonary process. Head CT was negative for acute pathology. Patient was admitted to the ICU and the following is the current management: 1. Severe sepsis secondary to peritonitis from perforated sigmoid colon with abscess formation * Patient febrile, + leukocytosis with bandemia, hypotensive and tachycardic on admission * Post-op day #10 from Harmann's procedure with Dr. Marcello MD; patient remains intubated off pressors, ostomy pink with + green liquid stool * Patient s/p IR guided drainage on 09/02/ of RUQ and LLQ fluid with drains in place * RUQ draining purulent material, showed moderate WBC, few gram + cocci but no significant growth after 3 days * LRC shows pseudomonas resistant to zosyn; continue IV meropenem (day #5) and continue IV fluconazole to 400 g IV Q24 hours (day #6) * Continue tube feeds * Surgery follow up appreciated with Dr. Marcello MD * IV protonix while intubated 2. Metabolic encephalopathy * On admission, likely secondary to severe sepsis from sigmoid perforation/ peritonitis * CT head negative for acute intracranial pathology * Hold off all home psych meds until mental status improves 3. Acute hypoxemic respiratory failure * Patient initially placed on non-rebreather but was transitioned to high flow nasal cannula/ BiPAP due to tachypnea/apparent respiratory distress * Patient tolerated BiPAP well but was intubated for Ho's procedure; FiO2 requirements stable at 50% with CXR showing biabilsar nonspecific airpsace disease * Aspiration precautions * No CPAP trial until FiO2 at least 40% * Noted bilateral pleural effusions on CT chest, patient s/p thoracentesis on * Lasix 20 mg IV x 2 for fluid overload today * PSV trials toady 4. SIERRA, IMPROVED * Likely prerenal in the setting of severe sepsis; patient s/p IVF with improvement noted * Monitor renal function and electrolytes with ICU bundle * Monitor urine output, strict Is/Os 5. Sinus tachycardia with T wave changes, IMPROVED * Continuous telemetry monitoring * Troponins negative x 3 * Echo showed normal global LV function without wall motion abnormalities and normal pulm artery systolic pressure * Monitor vital signs closely 6. Thrombocytopenia, IMPROVED * Plt this AM increased to 381 (623 on admission) * Likely 2/2 coagulopathly from sepsis * 4Ts score placed patient at low risk for HIT (<5%) * Resumed SC lovenox on 09/02 7. Acute blood loss anemia * H&H dropped again this AM to 7.4/22.0 * Total 1 U PRBC given since admission, will order 1 more unit for today and f/u CBC at 4 PM * Follow up CBC daily FULL CODE Diet: Tube feeds DVTP: ALPS + SC lovenox Pain: Fentanyl drip Problem List: 1. Status post Ho's procedure 2. History of adenomatous polyp of colon 3. Diverticulosis of colon 4. Malnutrition 5. History of Clostridium difficile infection 6. Lactic acidosis 7. Hypotension 8. Perforated viscus 9. Sepsis Pain Ratin Tomorrow's Labs & Rationales: CBC (leukocytosis) ICU bundle (hyponatremia, hyperchloremia) Plan DVT/Prophylaxis: pharmacological
[2016-09-05 08:00] VITALS: BP 124/70
--- NOTE | 2016-09-05 08:02 | RADIOLOGY REPORT ---
EXAMINATION: XR PORTABLE CHEST CLINICAL INFORMATION: Chemical ventilation COMPARISON: 60 09/04/2016 TECHNIQUE: Portable AP supine view of the chest was obtained. FINDINGS: The endotracheal tube is positioned approximately 0.5 cm above the evelio and could be pulled back slightly. There is an enteric tube in the stomach. There is a right subclavian central line in the superior vena cava. There is a pigtail catheter projecting over the eighth lateral posterior intercostal space unchanged. Heart size remains normal. Pulmonary vascularity remains normal. There is continued consolidation and atelectasis in the retrocardiac left lower lobe and at the right lung base. Bilateral pleural effusions, right greater than left are similar to prior study. No definitive pneumothorax is appreciated. IMPRESSION: 1. The tip of the endotracheal tube is about 0.5 cm above the evelio and could be pulled back 2. No change in overall expansion or appearance of the lungs with bibasilar areas of consolidation and bilateral pleural effusions.
--- NOTE | 2016-09-05 08:53 | PN- CRCU ---
Subjective HPI/Critical Care Issues: Doing about the same More awake today and following commands Did remain afebrile overnight Has received Ativan continues to be on fentanyl Vital signs are stable but she continues to be slightly tachycardic Is on 50% FiO2 now saturating 96% Intubated slightly sedated other history could not be obtained She is on intravenous fentanyl, tube feedings to goal Patient did have significant diuresis but still continues to be fluid overloaded SIGNIFICANT DATA Patient did get a chest x-ray this morning endotracheal tube is at the evelio needs to be pulled back no change in overall appearance CT of the abdomen and pelvis done yesterday with IV contracts showed complete collapse of the right middle lobe small bilateral pleural effusion unchanged moderate peritoneal fluid mostly prominent in the perihepatic region with peripheral enhancement of the peritoneal fluid with right hepatic and left lower abdominal pigtail catheter with splenic infarcts noted diffuse anasarca noted as well Laboratory Tests 09/05 09/04 8139 [id number] Chemistry Sodium (137 - 145 mmol/L) 134 L 134 L Potassium (3.5 - 5.1 mmol/L) 3.6 3.6 Chloride (98 - 107 mmol/L) 108 H 107 Carbon Dioxide (22 - 30 mmol/L) 21 L 19 L Anion Gap (5 - 16) 6 7 BUN (7 - 17 mg/dL) 9 11 Creatinine (0.5 - 1.0 mg/dL) 0.5 0.6 Estimated GFR (>60 ml/min) > 60 > 60 Glucose (65 - 99 mg/dL) 78 95 Calcium (8.4 - 10.2 mg/dL) 7.1 L 7.0 L Phosphorus (2.5 - 4.5 mg/dL) 3.2 3.6 Magnesium (1.6 - 2.3 mg/dL) 1.8 1.5 L Total Bilirubin (0.2 - 1.3 mg/dL) 0.4 0.4 AST (14 - 36 U/L) 18 17 ALT (9 - 52 U/L) 36 23 Albumin (3.5 - 5.0 g/dL) 1.7 L 1.5 L Hematology CBC w Diff MAN DIFF ORDERED MAN DIFF ORDERED WBC (4.8 - 10.8 /CUMM) 31.1 *H 36.8 *H RBC (4.20 - 5.40 /CUMM) 2.42 L 2.58 L Hgb (12.0 - 16.0 G/DL) 7.4 *L 8.0 L Hct (37 - 47 %) 22.0 L 23.9 L MCV (81.0 - 99.0 FL) 91.2 92.6 MCH (27.0 - 31.0 PG) 30.4 31.0 RDW (11.5 - 14.5 %) 15.5 H 15.8 H Plt Count (130 - 400 /CUMM) 381 281 MPV (7.4 - 10.4 FL) 8.9 9.9 Gran % (42.2 - 75.2 %) 95.4 H 96.2 H Lymphocytes % (20.5 - 51.1 %) 1.7 L 1.5 L Monocytes % (1.7 - 9.3 %) 2.8 2.2 Eosinophils % (0 - 5 %) 0.1 0.1 Basophils % (0.0 - 2.0 %) 0 L 0 L Absolute Granulocytes (1.4 - 6.5 /CUMM) 29.7 H 35.4 H Segmented Neutrophils (42.2 - 75.2 %) 93 H 88 H Band Neutrophils (0.0 - 5.0 %) 2 Absolute Lymphocytes (1.2 - 3.4 /CUMM) 0.5 L 0.6 L Lymphocytes (20.5 - 51.1 %) 4 L 6 L Monocytes (1.7 - 9.3 %) 3 4 Absolute Monocytes (0.10 - 0.60 /CUMM) 0.9 H 0.8 H Absolute Eosinophils (0.0 - 0.7 /CUMM) 0 0 Absolute Basophils (0.0 - 0.2 /CUMM) 0 0 Platelet Estimate (ADEQUATE) ADEQUATE ADEQUATE Polychromasia 1+ Hypochromic-Microcytic 1+ Poikilocytosis 1+ Basophilic Stippling 1+ Anisocytosis 1+ Ovalocytes 1+ Stomatocytes FEW PUBS MCHC (33.0 - 37.0 G/DL) 33.3 33.5 Other Body Source Fld Total RBCs Counted (%) 100 09/03 09/03 2200 1700 Hematology CBC w Diff Cancelled MAN DIFF ORDERED WBC (4.8 - 10.8 /CUMM) Cancelled 42.8 *H RBC (4.20 - 5.40 /CUMM) Cancelled 2.87 L Hgb (12.0 - 16.0 G/DL) Cancelled 8.9 L Hct (37 - 47 %) Cancelled 26.3 L MCV (81.0 - 99.0 FL) Cancelled 91.3 MCH (27.0 - 31.0 PG) Cancelled 30.8 RDW (11.5 - 14.5 %) Cancelled 15.6 H Plt Count (130 - 400 /CUMM) Cancelled 270 MPV (7.4 - 10.4 FL) Cancelled 9.7 Gran % (42.2 - 75.2 %) 95.9 H Lymphocytes % (20.5 - 51.1 %) 1.5 L Monocytes % (1.7 - 9.3 %) 2.5 Eosinophils % (0 - 5 %) 0.1 Basophils % (0.0 - 2.0 %) 0 L Absolute Granulocytes (1.4 - 6.5 /CUMM) 41.0 H Segmented Neutrophils (42.2 - 75.2 %) 9 L Absolute Lymphocytes (1.2 - 3.4 /CUMM) 0.7 L Monocytes (1.7 - 9.3 %) 1 L Absolute Monocytes (0.10 - 0.60 /CUMM) 1.1 H Absolute Eosinophils (0.0 - 0.7 /CUMM) 0 Absolute Basophils (0.0 - 0.2 /CUMM) 0 Nucleated RBCs (0.0 - 0.0 /100WBC) 1 H Platelet Estimate (ADEQUATE) VERIFIED BY SMEAR Polychromasia 1+ PUBS MCHC (33.0 - 37.0 G/DL) Cancelled 33.8 Other Body Source Fld Total RBCs Counted (%) 100 Microbiology Date/Time Procedure - Status Source Growth 09/04 1015 Urine Culture - RES URINE ROUT 09/04 1015 Clostridium difficile Toxin A & B - COMP STOOL 09/04 1010 Blood Culture - RECD BLOOD 09/04 1000 Blood Culture - RECD BLOOD 09/04 0900 Respiratory Culture - RES LOWER RESP 09/04 0900 Gram Stain - RES LOWER RESP 09/02 UNK Body Fluid Culture - RES BODY FLUID 09/02 UNK Gram Stain - RES BODY FLUID Objective Current Medications: Current Medications Sig/Ry Start time Last Medication Dose Route Stop Time Status Admin Acetaminophen 1,000 MG Q6P PRN 08/27 0230 AC 09/03 N/A 1 UNIT IV 2230 Albuterol Sulfate 3 ML EVERY 4 HRS/AWAKE 09/02 1999 AC 09/05 INH 0809 Albuterol Sulfate 3 ML Q4H PRN 08/27 1000 AC 08/28 INH 1309 Chlorhexidine 15 ML TID 08/29 1000 AC 09/04 Gluconate PO 2255 Dextrose/Sodium 1,000 ML Q13H 08/30 0445 DC 09/04 Chloride IV 0212 Enoxaparin Sodium 40 MG DAILY 09/03 1000 AC 09/04 SC 1109 Fentanyl Citrate 1,000 MCG Q10H 09/02 2000 AC 09/05 Dextrose/Water 250 ML IV 0058 Fluconazole 400 MG Q24 08/30 1045 AC 09/04 Sodium Chloride 200 ML IV 1109 Lorazepam 2 MG Q4-PRN PRN 08/31 1730 AC 09/05 IV 0500 Magnesium Oxide 400 MG ONE ONE 09/05 0700 DC PO 09/05 0701 Magnesium Sulfate 1 GM Q2H 09/04 0845 DC 09/04 Dextrose/Water 100 ML IV 09/04 1244 1245 Meropenem 1 GM IQ8 09/01 1600 AC 09/05 IV 0101 Pantoprazole Sodium 40 MG DAILY 08/27 1000 AC 09/04 IV 1109 Potassium Chloride 60 MEQ ONCE ONE 09/05 07 DC PO 09/05 0701 Vital Signs & I&O Last 24 Hrs of Vitals and I&O: Vital Signs Date Time Temp Pulse Resp B/P B/P Pulse O2 O2 Flow FiO2 Mean Ox Delivery Rate 09/05 0800 50 09/05 0603 50 09/05 0400 96 Ventilator 50% 09/05 0319 50 09/05 0128 50 09/05 0000 98.3 104 28 151/79 95 Ventilator 50% 09/05 0000 95 Ventilator 50% 09/04 2225 50 09/04 2040 50 09/04 2000 96 Ventilator 55% 09/04 1655 50 09/04 1600 96 Ventilator 50% 09/04 1600 98.8 104 26 120/70 96 Ventilator 50% 09/04 1449 50 09/04 1200 95 Ventilator 35% 09/04 1200 98.2 106 22 122/69 96 Ventilator 50% 09/04 1144 50 Intake & Output 09/05 1600 09/05 0800 09/05 0000 Intake Total 726 856 Output Total 1330 1200 Balance -604 -344 Intake, IV 126 420 Intake, Tube 480 286 Feeding Intake, Tube 120 150 Irrigant Output, 30 100 Drainage Output, Stool 300 300 Output, Urine 1000 800 Impression/Plan Impression/Plan Impression/Plan: Exam General Appearance: well developed/nourished, no apparent distress, sedated, intubated Head: atraumatic, normal appearance Ears, Nose, Throat: hearing grossly normal, moist mucus membranes Neck: normal inspection, supple Respiratory: Rhonchi bilateral lung rosenbaum but aeration improving Cardiovascular: regular rate/rhythm Gastrointestinal: Ostomy pink with good stool output, midline incision covered by dry clean gauze Extremities: Bilateral upper extremity pitting edema Cranial Nerves: normal hearing, PERRL Skin: Normal color, clean and dry around midline incision Skin Temp/Moisture Exam: Warm/Dry IMPRESSION This is a lady with pericolic abscess status post drainage and sigmoid colectomy with end colostomy with status post drainage for fluid placement in the right upper quadrant and left lower abdomen with bilateral pleural fluid, ongoing fever now on meropenem and fluconazole. Issues include postop respiratory failure related to above-mentioned problems Ongoing infection intra-abdominally, with new onset fever with persistent leukocytosis despite drainage of purulent fluid from the right upper quadrant now on meropenem and fluconazole Seems to have a large fluid collection which may need to be drained general surgery to see today and comment Pleural effusion bilaterally appears most likely related to a transudative effusion Right middle lobe atelectasis related to mucous plugging Significant thrombocytopenia now improved Persistent leukocytosis Pseudomonas intra-abdominal sepsis and intra-abdominal fungal infection RECOMMENDATION Continue mechanical ventilator Start pressure-support ventilation trials today Withdrawal ET tube by 1 cm and recheck chest x-ray Ask general surgery to comment on the fluid collection patient may need the pigtail catheter or may need to have this drained surgically Intravenous Lasix 2 doses Keep potassium more than 4 magnesium more than 2 phosphate more than 3 Continue light sedation and antibiotics and tube feedings Continue antibiotics Continue tube feedings [place] patient is critically ill total time spent 39 minutes
--- NOTE | 2016-09-05 09:45 | RADIOLOGY REPORT ---
EXAMINATION: XR PORTABLE CHEST CLINICAL INFORMATION: Endotracheal tube repositioned COMPARISON: Chest x-ray from earlier the same day. TECHNIQUE: Portable AP portable semierect film of the chest view of the chest was obtained. FINDINGS: Endotracheal tube is been pulled back and the tip is now situated approximately 2.5 cm above the evelio. Enteric tube extends below the diaphragm. Central line remains in the superior vena cava unchanged. The lungs remain hypoexpanded with bibasilar atelectasis, consolidation and pleural effusions, unchanged from previous. No new focal findings. IMPRESSION: Endotracheal tube has been repositioned and is now 2.5 cm above the evelio. No change in overall expansion or appearance of the lungs with continued bibasilar opacities
[2016-09-05 16:00] VITALS: BP 160/76
--- NOTE | 2016-09-05 16:00 | NUR ---
ASSUMED CARE OF PATIENT. PATIENT AWAKE BUT INTUBATED, ABLE TO FOLLOW COMMANDS, SELENE. MONITOR STACH WITH GOOD HEART SOUNDS. LUNGS REMAIN VENTED, DIMINISHED AT BASES. TUBE FEED CONTINUES VIA NG TUBE, COLOSTOMY R ABD PRODUCING GAS AND THIN LIQUID. BOWEL SOUNDS ACTIVE. 2 DRAINS INTACT. TOBAR INTACT DRAINING CLEAR URINE. DUAL LUMEN PICC INTACT TO ANASTACIA. ABD ALEM INTACT OPEN TO AIR.
[2016-09-05 16:44] LABS: ABSOLUTE BASOPHIL COUNT 0 /CUMM (0.0-0.2); ABSOLUTE EOSINOPHIL COUNT 0 /CUMM (0.0-0.7); ABSOLUTE GRANULOCYTE CT 25.8 /CUMM (1.4-6.5); ABSOLUTE LYMPH COUNT 0.6 /CUMM (1.2-3.4); ABSOLUTE MONOCYTE COUNT 0.9 /CUMM (0.10-0.60); BASOPHIL % 0.1 % (0.0-2.0); EOSINOPHIL % 0.1 % (0-5); GRANULOCYTE % 94.3 % (42.2-75.2); HEMATOCRIT 25.6 % (37-47); MEAN CORPUSCULAR HGB 30.4 PG (27.0-31.0); MEAN CORPUSCULAR HGB CONC 33.4 G/DL (33.0-37.0); MEAN CORPUSCULAR VOLUME 91.1 FL (81.0-99.0); MEAN PLATELET VOLUME 9.2 FL (7.4-10.4); PLATELET COUNT 427 /CUMM (130-400); RBC DISTRIBUTION WIDTH 15.6 % (11.5-14.5); RED BLOOD CELL CT 2.82 /CUMM (4.20-5.40); WHITE BLOOD CELL COUNT 27.4 /CUMM (4.8-10.8)
[2016-09-06] VITALS: BP 135/58
[2016-09-06 05:05] LABS: ABSOLUTE BASOPHIL COUNT 0 /CUMM (0.0-0.2); ABSOLUTE EOSINOPHIL COUNT 0 /CUMM (0.0-0.7); ABSOLUTE GRANULOCYTE CT 22.5 /CUMM (1.4-6.5); ABSOLUTE LYMPH COUNT 0.7 /CUMM (1.2-3.4); BASOPHIL % 0.1 % (0.0-2.0); EOSINOPHIL % 0.1 % (0-5); GRANULOCYTE % 92.9 % (42.2-75.2); HEMATOCRIT 24.3 % (37-47); MEAN CORPUSCULAR HGB 30.8 PG (27.0-31.0); MEAN CORPUSCULAR HGB CONC 34.1 G/DL (33.0-37.0); MEAN CORPUSCULAR VOLUME 90.3 FL (81.0-99.0); PLATELET COUNT 418 /CUMM (130-400); RBC DISTRIBUTION WIDTH 15.4 % (11.5-14.5); WHITE BLOOD CELL COUNT 24.3 /CUMM (4.8-10.8)
--- NOTE | 2016-09-06 06:01 | PN- General Surgery ---
Subjective Subjective: remains intubated responsive to touch and intermittent commands no major events overnight on fentanyl gtt for comfort tolerating tube feeds ostomy patent leukocytosis trending down Objective Vital Signs and I&Os Vital Signs Date Time Temp Pulse Resp B/P B/P Pulse O2 O2 Flow FiO2 Mean Ox Delivery Rate 09/06 0256 50 09/06 0109 50 09/06 0000 99.0 116 30 135/58 93 Ventilator 50% 09/06 0000 93 Ventilator 50% 09/05 2311 50 09/05 2100 50 09/05 2000 94 Ventilator 50% 09/05 1650 50 09/05 1600 94 Ventilator 50% 09/05 1600 99.3 114 25 160/76 94 Ventilator 50% 09/05 1420 50 09/05 1200 96 Ventilator 50% 09/05 1143 50 09/05 0800 50 09/05 0800 98 Ventilator 50% 09/05 0800 98.1 104 20 124/70 98 Ventilator 50% 09/05 0603 50 Intake & Output 09/06 0800 09/06 0000 09/05 1600 09/05 0800 09/05 0000 09/04 1600 Intake Total 880 1401 176 995 1885 Output Total 1557 2640 1330 1200 810 Balance -677 -1239 -604 -344 714 Intake, Blood 350 Product Intake, IV 200 421 126 420 844 Intake, Oral 0 Intake, Other 90 Intake, Tube 560 420 480 286 560 Feeding Intake, Tube 120 120 120 150 120 Irrigant Output, 0 40 30 100 30 Drainage Output, Other 12 Output, Stool 275 400 300 300 300 Output, Urine 1270 2200 1000 800 480 Patient 168 lb Weight Weight Bed scale Measurement Method Physical Exam: cv: rrr lungs: air movemet in all rosenbaum abd: softly distended, +bs no guarding to palp midline wound c//d/i, inferiror wound clean with granulating tissue stoma retracted but viable brown liquid stool in ostomy with large amount of gas llq drain with minimal drainage, ruq drain continues with mucopurulent drainage but minimal ext: pulses present pitting edema Assessment/Plan Assessment/Plan surgically improving plan cont crit care support await final cx/s daily drsg changes
--- NOTE | 2016-09-06 06:43 | PN- Resident CRCU ---
ELIANA BAILEY,MARA 09/06/16 0642: Subjective HPI/CRCU Issues: Patient seen and examined at bedside this AM. She is alert and is able to nod yes or no to questions when asked. She denies pain. RUQ and LLQ drains remain in place, though LLQ drain may be removed after discussion held with Dr. Marcello MD. She remained afebrile overnight with no growth in most recent urine or blood cultures. She is continued on IV meropenem and IV fluconazole. Patient had PSV trial today and lasted 45 minutes but was subsequently noted to be tachycardic to the 40s. 24 Hour Events: property assessment monitor: Vital signs last 24 hours: T 98.1-99.3, HR 104-116, RR 20-30, BP 99-143/48-81, O2 sat 92-98% on AC 20 TV 450, FiO2 50% and 5 PEEP. Total intake last 24 hours: 2885 cc Total output last 24 hours: 6715 cc Objective Vital Signs & I&O Last 8 Hrs of Vitals and I&O: Intake & Output 09/06 1600 Intake Total Output Total Balance Patient 158 lb Weight Weight Bed scale Measurement Method T 98.1-99.3, HR 104-116, RR 20-30, BP 99-143/48-81, O2 sat 92-98% on AC 20 TV 450, FiO2 50% and 5 PEEP. Exam General Appearance: well developed/nourished, no apparent distress, alert, awake , intubated Head: atraumatic, normal appearance Ears, Nose, Throat: normal pharynx, hearing grossly normal Neck: normal inspection, supple Respiratory: normal breath sounds, chest non-tender Cardiovascular: regular rate/rhythm Gastrointestinal: normal bowel sounds, non-tender, Ostomy site clean and noted + stool output Extremities: Significant bilateral lower extremity edema, 3+ Cranial Nerves: normal hearing Skin: warm/dry, [place] along midline incision in place, lower end of incision open and no drainage appreciated. Nutrition Nutrition: tube feeding Current Medications: Current Medications Sig/Ry Start time Last Medication Dose Route Stop Time Status Admin Acetaminophen 1,000 MG Q6P PRN 08/27 0230 AC 09/03 N/A 1 UNIT IV 2230 Acetylcysteine 2 ML BID 09/06 1000 AC INH Albuterol Sulfate 3 ML EVERY 4 HRS/AWAKE 09/02 1999 AC 09/06 INH 0826 Albuterol Sulfate 3 ML Q4H PRN 08/27 1000 AC 08/28 INH 1309 Chlorhexidine 15 ML TID 08/29 1000 AC 09/06 Gluconate PO 0901 Enoxaparin Sodium 40 MG DAILY 09/03 1000 AC 09/06 SC 0902 Fentanyl Citrate 1,000 MCG Q10H 09/03 1999 AC 09/06 Dextrose/Water 250 ML IV 1129 Fluconazole 400 MG Q24 08/30 1045 AC 09/06 Sodium Chloride 200 ML IV 0830 Furosemide 20 MG BID 09/05 1000 DC 09/05 IV 09/05 2201 2215 Lorazepam 2 MG Q4-PRN PRN 08/31 1730 AC 09/06 IV 0320 Magnesium Sulfate 1 GM Q2H 09/06 0700 DC 09/06 Dextrose/Water 100 ML IV 09/06 1059 0921 Meropenem 1 GM IQ8 09/01 1600 AC 09/06 IV 0906 Pantoprazole Sodium 40 MG DAILY 08/27 1000 AC 09/06 IV 0906 Potassium Chloride 20 MEQ Q1H 09/06 0700 DC 09/06 IV 09/06 0801 0951 Impression/Plan Impression/Problem List Impression: Ms. Camacho is a 60 year old female with PMH anxiety, depression, COPD , prior episode of severe clostridium difficile infection in 2016, tobacco abuse and gastritis who presented to the [place] ED after one week of altered mental status, decreased oral intake and possible withdrawl symptoms as her clonazepam was being titrated off per doctor instructions. She was found to be hypotensive, febrile and altered while in the [place] ED. In the ED: Vital signs showed Tmax 101.5, HR 116, RR 20, BP 93/62 and O2 saturation 90% on room air. Labs were significant for WBC 18.1 with 37 bands, H&H 13.7/41.6, Plt 623, Na 143 , K 3.6, Cl 107, HCO3 16, BUN/cre 28/1.8, Glu 98, Lactic acid 2.9, AST 62, ALT 42, CK 370, troponin 0.05, proBNP 15483, amylase 153, lipase <10, and UA with high protein, positive nitrite, high urobilinogen, 50 WBCs, moderate bacteria and large hgb. CXR showed no acute pulmonary process. Head CT was negative for acute pathology. Patient was admitted to the ICU and the following is the current management: 1. Severe sepsis secondary to peritonitis from perforated sigmoid colon with abscess formation * Patient febrile, + leukocytosis with bandemia, hypotensive and tachycardic on admission * Post-op day #11 from Harmann's procedure with Dr. Marcello MD; patient remains intubated off pressors, ostomy pink with + green liquid stool * Patient s/p IR guided drainage on 09/02/16 of RUQ and LLQ fluid with drains in place * RUQ draining purulent material, showed moderate WBC, few gram + cocci but no significant growth after 3 days * Will remove LLQ drain today as it has had minimal output as recommended by surgery * LRC shows pseudomonas resistant to zosyn; continue IV meropenem (day #6) and continue IV fluconazole to 400 g IV Q24 hours (day #7) * Continue tube feeds * Surgery follow up appreciated with Dr. Marcello MD * IV protonix while intubated 2. Metabolic encephalopathy * On admission, likely secondary to severe sepsis from sigmoid perforation/ peritonitis * CT head negative for acute intracranial pathology * Hold off all home psych meds until mental status improves 3. Acute hypoxemic respiratory failure * Patient initially placed on non-rebreather but was transitioned to high flow nasal cannula/ BiPAP due to tachypnea/apparent respiratory distress * Patient tolerated BiPAP well but was intubated for Ho's procedure; FiO2 requirements stable at 50% with CXR showing biabilsar nonspecific airpsace disease * Aspiration precautions * No CPAP trial until FiO2 at least 40% * Noted bilateral pleural effusions on CT chest, patient s/p thoracentesis on * Lasix 20 mg IV x 2 for fluid overload yesterday * PSV trials to continue * Doppler BL LE to rule out DVT today 4. SIERRA, IMPROVED * Likely prerenal in the setting of severe sepsis; patient s/p IVF with improvement noted * Monitor renal function and electrolytes with ICU bundle * Monitor urine output, strict Is/Os 5. Sinus tachycardia with T wave changes, IMPROVED * Continuous telemetry monitoring * Troponins negative x 3 * Echo showed normal global LV function without wall motion abnormalities and normal pulm artery systolic pressure * Monitor vital signs closely 6. Thrombocytopenia, IMPROVED * Plt this AM increased to 418 (623 on admission) * Likely 2/2 coagulopathly from sepsis * 4Ts score placed patient at low risk for HIT (<5%) * Resumed SC lovenox on 09/02 7. Acute blood loss anemia * Patient given 2 U PRBC total since admission, last unit on 09/05/16 * Follow up CBC daily, monitor for bleeding FULL CODE Diet: Tube feeds DVTP: ALPS + SC lovenox Pain: Fentanyl drip Problem List: 1. Status post Ho's procedure 2. History of adenomatous polyp of colon 3. Diverticulosis of colon 4. Malnutrition 5. History of Clostridium difficile infection 6. Lactic acidosis 7. Hypotension 8. Perforated viscus Pain Ratin Tomorrow's Labs & Rationales: CBC (sepsis) ICU bundle (hyponatremia) Plan DVT/Prophylaxis: pharmacological GARY CARIAS MD 09/06/16 0932: Attending MD Review Statement Attending Sign Off Attending Cosign Statement: I have: examined this patient, reviewed [facility] EMR data, personally reviewd images, discussd w/resident/PA/PHOTOLITHOGRAPHER, discussed mgmt plan w/kavya, discussed mgmt plan w/CM, discussed mgmt plan w/pt, agreed w/resident/PA/PHOTOLITHOGRAPHER, amended to note. Other Findings: Impression 60 year old woman * pericolic abscess s/p drainage and sigmoid colectomy with end colostomy, now s /p drainage catheter placement by IR for fluid collections in right upper and left lower abdomen * malnutrition * thrombocytopenia improved * abdominal fluid and pleural effusions Plan Respiratory -TRC/Nebs -aspiration precautions -reduce fio2 as tolerated ID -continue abx -ID consultation follow up -on meropenem and fluconazole CVS -monitor hemodynamics -monitor cvp -plan for picc line Heme -monitor cbc, coags -thrombocytopenia improved now on lovenox for DVT prophylaxis Metabolic -SIERRA resolved -cont hydration Alimentary -aspiration precautions -f/u surgery for nutrition Neuro -psych upon extubation follow up -anxiolysis DVT prophylaxis at all times - lovenox TTS 35 min
[2016-09-06 08:00] VITALS: BP 112/70
--- NOTE | 2016-09-06 08:30 | RADIOLOGY REPORT ---
EXAMINATION: CHEST 1 VIEW CLINICAL INFORMATION: Respiratory failure. COMPARISON: Multiple prior exams are reviewed. The most recent is from 09/05/2016. TECHNIQUE: An AP view of the chest is provided. FINDINGS: The cardiac silhouette is not enlarged. The endotracheal tube and right-sided PICC line are in unchanged position as is the enteric tube. A pigtail catheter is identified overlying the right upper quadrant. The mediastinal and hilar contours are unremarkable. There are no pneumothoraces. There are are small bilateral pleural effusions, unchanged from prior exam with associated airspace disease. The osseous structures are unremarkable. IMPRESSION: Lines and tubes in place as stated above. Small bilateral pleural effusions with associated bibasilar airspace disease.
--- NOTE | 2016-09-06 09:16 | PN- General Surgery ---
Surgical Brief Attending Note Brief Attending Note: slow improvement. recent CT reviewed (abd/pelvis). defer chest findings to ICU. In regards to peritoneal drains, the LLQ one will be removed today. Continue RUQ drain with flushes.
--- NOTE | 2016-09-06 11:00 | PN- Infect Dx ---
Subjective Subjective: Afebrile. She offers no complaints. Objective Last 24 Hrs of Vital Signs/I&O Vital Signs Date Time Temp Pulse Resp B/P B/P Pulse O2 O2 Flow FiO2 Mean Ox Delivery Rate 09/06 0835 40 09/06 0610 50 09/06 0400 96 Ventilator 50% 09/06 0256 50 09/06 0109 50 09/06 0000 99.0 116 30 135/58 93 Ventilator 50% 09/06 0000 93 Ventilator 50% 09/05 2311 50 09/05 2100 50 09/05 2000 94 Ventilator 50% 09/05 1650 50 09/05 1600 94 Ventilator 50% 09/05 1600 99.3 114 25 160/76 94 Ventilator 50% 09/05 1420 50 09/05 1200 96 Ventilator 50% 09/05 1143 50 Intake & Output 09/06 1600 09/06 0800 09/06 0000 Intake Total 604 880 Output Total 2525 1557 Balance -1921 -677 Intake, IV 0 200 Intake, Tube 484 560 Feeding Intake, Tube 120 120 Irrigant Output, 25 0 Drainage Output, Other 12 Output, Stool 600 275 Output, Urine 1900 1270 Physical Exam Other Physical Findings: She appears comfortable, awake and alert, on the ventilator in no acute distress Lungs are clear Heart regular rhythm with no murmur Abdomen is soft, with no obvious tenderness, positive bowel sounds; liquid stool in the colostomy; 20 mL output from the right upper quadrant drain yesterday and 20 mL overnight and 10 mL from the left lower quadrant drain yesterday and 5 mL overnight Extremities increased right leg swelling compared to the left, nontender to palpation; PICC in the right upper extremity with no inflammation at the site F[place] catheter remains in place Results Last 24 Hours of Lab Results: Laboratory Tests 09/06 09/05 0420 1600 Chemistry Sodium (137 - 145 mmol/L) 135 L Potassium (3.5 - 5.1 mmol/L) 3.5 Chloride (98 - 107 mmol/L) 104 Carbon Dioxide (22 - 30 mmol/L) 22 Anion Gap (5 - 16) 8 BUN (7 - 17 mg/dL) 9 Creatinine (0.5 - 1.0 mg/dL) 0.5 Estimated GFR (>60 ml/min) > 60 Glucose (65 - 99 mg/dL) 80 Calcium (8.4 - 10.2 mg/dL) 7.1 L Phosphorus (2.5 - 4.5 mg/dL) 3.1 Magnesium (1.6 - 2.3 mg/dL) 1.6 Total Bilirubin (0.2 - 1.3 mg/dL) 0.6 AST (14 - 36 U/L) 23 ALT (9 - 52 U/L) 32 Albumin (3.5 - 5.0 g/dL) 1.8 L Hematology CBC w Diff MAN DIFF ORDERED MAN DIFF ORDERED WBC (4.8 - 10.8 /CUMM) 24.3 H 27.4 H RBC (4.20 - 5.40 /CUMM) 2.70 L 2.82 L Hgb (12.0 - 16.0 G/DL) 8.3 L 8.6 L Hct (37 - 47 %) 24.3 L 25.6 L MCV (81.0 - 99.0 FL) 90.3 91.1 MCH (27.0 - 31.0 PG) 30.8 30.4 RDW (11.5 - 14.5 %) 15.4 H 15.6 H Plt Count (130 - 400 /CUMM) 418 H 427 H MPV (7.4 - 10.4 FL) 9.0 9.2 Gran % (42.2 - 75.2 %) 92.9 H 94.3 H Lymphocytes % (20.5 - 51.1 %) 2.8 L 2.2 L Monocytes % (1.7 - 9.3 %) 4.1 3.3 Eosinophils % (0 - 5 %) 0.1 0.1 Basophils % (0.0 - 2.0 %) 0.1 0.1 Absolute Granulocytes (1.4 - 6.5 /CUMM) 22.5 H 25.8 H Segmented Neutrophils (42.2 - 75.2 %) 95 H Band Neutrophils (0.0 - 5.0 %) 1 Absolute Lymphocytes (1.2 - 3.4 /CUMM) 0.7 L 0.6 L Lymphocytes (20.5 - 51.1 %) 2 L Monocytes (1.7 - 9.3 %) 2 Absolute Monocytes (0.10 - 0.60 /CUMM) 1.0 H 0.9 H Absolute Eosinophils (0.0 - 0.7 /CUMM) 0 0 Absolute Basophils (0.0 - 0.2 /CUMM) 0 0 Platelet Estimate (ADEQUATE) INCREASED INCREASED Polychromasia 1+ 2+ Hypochromic-Microcytic 1+ 2+ Poikilocytosis 1+ Basophilic Stippling 1+ Anisocytosis 1+ Macrocytic Cells 1+ PUBS MCHC (33.0 - 37.0 G/DL) 34.1 33.4 Last 24 Hours of [place] Results: Sputum culture September 04 positive for Pseudomonas sensitive to Ceftazidime and Meropenem, mold and yeast Right pleural fluid culture September 02 negative Blood cultures September 04 negative Urine culture August 27 negative Stool C. difficile August 27 negative Recent Imaging Studies: Chest x-ray September 06, personally reviewed, reveals small bilateral pleural effusions with associated bibasilar airspace disease CT of the chest, abdomen and pelvis September 04 reveals new complete collapse of the right middle lobe with small bilateral pleural effusions with adjacent atelectasis versus infiltrates; unchanged moderate peritoneal fluid, most prominent in the perihepatic region; wedge-shaped areas of hypoenhancement within the spleen; diffuse anasarca Assessment/Plan Impression: Improving with no further fevers and with white blood cell count decreasing, though still elevated, now 5 days status post drainage of purulent fluid from the right upper quadrant collection, with cultures of this collection and from the left lower quadrant collection negative. She remains on Meropenem and Fluconazole for a polymicrobial peritonitis secondary to a perforated sigmoid colon now 11 days status post Granger's procedure, with Clostridium isolated from the initial blood culture. Pseudomonas has been isolated from her sputum cultures, though not clear if this represents colonization or infection, with her CT scans of the chest more suggestive of atelectasis than pneumonia and with bilateral pleural effusions, likely transudative based on her recent right thoracentesis. Mold and yeast were also isolated from her recent sputum culture and likely represent oropharyngeal contamination or colonization. Suggestion: 1. Further management of her drains, with removal of the left lower quadrant drain planned for today, per Surgery 2. Doppler of the right lower extremity 3. Continue Meropenem and Fluconazole
--- NOTE | 2016-09-06 15:02 | ULTRASOUND REPORT ---
EXAMINATION: US TRIPLEX OF LOWER EXTREMITIES, BILATERAL CLINICAL INFORMATION: Bilateral lower extremity edema and swelling. COMPARISON: None TECHNIQUE: Color-flow triplex imaging with spectral analysis and compression Doppler were performed on the lower extremities. FINDINGS: Respiratory variation, normal compression and augmented flow are noted throughout the lower extremities. The visualized common femoral vein, superficial femoral vein, profunda femoral vein, popliteal vein and midcalf peroneal and posterior tibial venous segments show no evidence of deep venous thrombosis. There is a 3.1 x 0.8 x 1.0 cm left-sided popliteal fossa Bhardwaj's cyst. IMPRESSION: No evidence for deep venous thrombosis. Left popliteal fossa Bhardwaj's cyst.
[2016-09-06 16:00] VITALS: BP 122/64
--- NOTE | 2016-09-06 19:57 | RADIOLOGY REPORT ---
EXAMINATION: XR PORTABLE CHEST CLINICAL INFORMATION: OG tube placement. COMPARISON: Chest x-ray from 09/06/2016 at 5:34 AM. TECHNIQUE: Portable frontal view of the chest was obtained. FINDINGS: An orogastric tube is visualized coursing into the stomach. The proximal and distal tips of the tube are not visible. Patchy opacities are noted in the lower lobes which may be due to subsegmental atelectasis. Small bilateral pleural effusions also suspected. Findings are unchanged from the recent chest x-ray from 09/06/2016 at 5:34 AM. A pigtail catheter is again noted in the right upper quadrant. There is a mild rightward curvature of the thoracic spine. IMPRESSION: Oral gastric tube coursing into the stomach. Please note that the distal and proximal tips of the catheter are not included within the field of imaging. Stable bibasilar opacities and small pleural effusions.
--- NOTE | 2016-09-06 20:14 | NUR ---
PT DISLODED NGT. CALLED SURGERY PA AND DR MONROY. OK TO PLACE OGT. OGT PLACED AND CXR ORDERED AND OBTAINED.
--- NOTE | 2016-09-06 22:35 | NUR ---
PT TEMP 101.2. DR MCKEON MADE AWARE. TYLENOL IV GIVEN X 1.
[2016-09-07] VITALS: BP 137/66
[2016-09-07 05:13] LABS: ABSOLUTE BASOPHIL COUNT 0 /CUMM (0.0-0.2); ABSOLUTE EOSINOPHIL COUNT 0 /CUMM (0.0-0.7); ABSOLUTE GRANULOCYTE CT 20.3 /CUMM (1.4-6.5); ABSOLUTE LYMPH COUNT 0.7 /CUMM (1.2-3.4); ABSOLUTE MONOCYTE COUNT 1.1 /CUMM (0.10-0.60); BASOPHIL % 0.1 % (0.0-2.0); EOSINOPHIL % 0.1 % (0-5); GRANULOCYTE % 91.9 % (42.2-75.2); HEMATOCRIT 23.1 % (37-47); MEAN CORPUSCULAR HGB 30.6 PG (27.0-31.0); MEAN CORPUSCULAR HGB CONC 33.4 G/DL (33.0-37.0); MEAN CORPUSCULAR VOLUME 91.6 FL (81.0-99.0); MEAN PLATELET VOLUME 8.5 FL (7.4-10.4); PLATELET COUNT 523 /CUMM (130-400); RBC DISTRIBUTION WIDTH 15.4 % (11.5-14.5); RED BLOOD CELL CT 2.52 /CUMM (4.20-5.40)
--- NOTE | 2016-09-07 05:57 | PN- General Surgery ---
See Addendum Subjective Subjective: No acute events overnight. Patient remains intubated, is awake and alert and responsive Objective Vital Signs and I&Os Vital Signs Date Time Temp Pulse Resp B/P B/P Pulse O2 O2 Flow FiO2 Mean Ox Delivery Rate 09/07 0405 40 09/07 0106 40 09/07 0000 98.6 109 28 137/66 92 Ventilator 40% 09/07 0000 92 Ventilator 40% 09/06 2305 98.6 09/06 2243 40 09/06 2206 101.2 09/06 2000 93 Ventilator 40% 09/06 1915 40 09/06 1625 40 09/06 1600 93 Ventilator 40% 09/06 1600 98.3 110 31 122/64 93 Ventilator 40% 09/06 1210 40 09/06 1200 92 Ventilator 40% 09/06 0835 40 09/06 0800 96 Ventilator 50% 09/06 0800 98.5 111 20 112/70 96 Ventilator 50% 09/06 0610 50 Intake & Output 09/07 0800 09/07 0000 09/06 1600 09/06 0800 09/06 0000 09/05 1600 Intake Total 872 1290 306 132 2059 Output Total 5331 660 9145 1557 2640 Balance -198 335 -1921 -677 -1239 Intake, Blood 350 Product Intake, IV 262 750 0 200 421 Intake, Oral 0 0 0 Intake, Other 0 90 Intake, Tube 490 420 484 560 420 Feeding Intake, Tube 120 120 120 120 120 Irrigant Output, 60 30 25 0 40 Drainage Output, Other 12 Output, Stool 400 75 600 275 400 Output, Urine 944 230 2465 1270 2200 Patient 158 lb 168 lb Weight Weight Bed scale Bed scale Measurement Method Physical Exam: Intubated, awake and alert Heart: Regular rate and rhythm Lungs: coarse anterior Abdomen: Mild clip erythema, incision is healing well, distal aspect of incision that is left open with granulating tissue present and minimal amount of serous drainage. Small amount of Packing was changed. Stoma is pink and viable, small amount of stool noted in the bag. Left lower quadrant pigtail drain was removed - not draining anymore right sided abdominal pigtail drain with small amount of cloudy serous drainage 115 mL's of fluid drained overnight from the right side Results Last 48 Hours of Labs: Laboratory Tests 09/07 09/07 0440 0415 Blood Gas pH (7.35 - 7.45 PH) 7.50 H pCO2 (35 - 45 TORR) 32 L pO2 (80 - 100 TORR) 68 L HCO3 (21 - 28 MEQ/L) 25 ABG O2 Sat (Measured) (>96.0 %) 93.0 L P-50 (Temp Corrected) Y Carboxyhemoglobin (1.5 - 5.0 %) 0.1 L O2 Concentration % 40% Temperature (97.0 - 100.0 FARH) 98.3 Respiration Rate (BPM) 20 O2 Delivery Method ESPRIT Vent Mode AC Expiratory Pressure (CMH2O/P) 5 Tidal Volume (CC) 450 Chemistry Sodium (137 - 145 mmol/L) 135 L Potassium (3.5 - 5.1 mmol/L) 3.7 Chloride (98 - 107 mmol/L) 102 Carbon Dioxide (22 - 30 mmol/L) 25 Anion Gap (5 - 16) 8 BUN (7 - 17 mg/dL) 9 Creatinine (0.5 - 1.0 mg/dL) 0.5 Estimated GFR (>60 ml/min) > 60 Glucose (65 - 99 mg/dL) 78 Calcium (8.4 - 10.2 mg/dL) 7.4 L Phosphorus (2.5 - 4.5 mg/dL) 3.5 Magnesium (1.6 - 2.3 mg/dL) 1.9 Total Bilirubin (0.2 - 1.3 mg/dL) 0.5 AST (14 - 36 U/L) 25 ALT (9 - 52 U/L) 30 Albumin (3.5 - 5.0 g/dL) 1.8 L Hematology CBC w Diff MAN DIFF ORDERED WBC (4.8 - 10.8 /CUMM) 22.0 H RBC (4.20 - 5.40 /CUMM) 2.52 L Hgb (12.0 - 16.0 G/DL) 7.7 L Hct (37 - 47 %) 23.1 L MCV (81.0 - 99.0 FL) 91.6 MCH (27.0 - 31.0 PG) 30.6 RDW (11.5 - 14.5 %) 15.4 H Plt Count (130 - 400 /CUMM) 523 H MPV (7.4 - 10.4 FL) 8.5 Gran % (42.2 - 75.2 %) 91.9 H Lymphocytes % (20.5 - 51.1 %) 3.0 L Monocytes % (1.7 - 9.3 %) 4.9 Eosinophils % (0 - 5 %) 0.1 Basophils % (0.0 - 2.0 %) 0.1 Absolute Granulocytes (1.4 - 6.5 /CUMM) 20.3 H Segmented Neutrophils (42.2 - 75.2 %) 89 H Band Neutrophils (0.0 - 5.0 %) 2 Absolute Lymphocytes (1.2 - 3.4 /CUMM) 0.7 L Lymphocytes (20.5 - 51.1 %) 2 L Monocytes (1.7 - 9.3 %) 7 Absolute Monocytes (0.10 - 0.60 /CUMM) 1.1 H Absolute Eosinophils (0.0 - 0.7 /CUMM) 0 Absolute Basophils (0.0 - 0.2 /CUMM) 0 Platelet Estimate (ADEQUATE) INCREASED Polychromasia 1+ Poikilocytosis 1+ Ovalocytes 1+ PUBS MCHC (33.0 - 37.0 G/DL) 33.4 Miscellaneous Phlebotomy Draw Site LEFT BRACHIAL Other Body Source Fld Total RBCs Counted (%) 100 09/06 09/05 0420 1600 Chemistry Sodium (137 - 145 mmol/L) 135 L Potassium (3.5 - 5.1 mmol/L) 3.5 Chloride (98 - 107 mmol/L) 104 Carbon Dioxide (22 - 30 mmol/L) 22 Anion Gap (5 - 16) 8 BUN (7 - 17 mg/dL) 9 Creatinine (0.5 - 1.0 mg/dL) 0.5 Estimated GFR (>60 ml/min) > 60 Glucose (65 - 99 mg/dL) 80 Calcium (8.4 - 10.2 mg/dL) 7.1 L Phosphorus (2.5 - 4.5 mg/dL) 3.1 Magnesium (1.6 - 2.3 mg/dL) 1.6 Total Bilirubin (0.2 - 1.3 mg/dL) 0.6 AST (14 - 36 U/L) 23 ALT (9 - 52 U/L) 32 Albumin (3.5 - 5.0 g/dL) 1.8 L Hematology CBC w Diff MAN DIFF ORDERED MAN DIFF ORDERED WBC (4.8 - 10.8 /CUMM) 24.3 H 27.4 H RBC (4.20 - 5.40 /CUMM) 2.70 L 2.82 L Hgb (12.0 - 16.0 G/DL) 8.3 L 8.6 L Hct (37 - 47 %) 24.3 L 25.6 L MCV (81.0 - 99.0 FL) 90.3 91.1 MCH (27.0 - 31.0 PG) 30.8 30.4 RDW (11.5 - 14.5 %) 15.4 H 15.6 H Plt Count (130 - 400 /CUMM) 418 H 427 H MPV (7.4 - 10.4 FL) 9.0 9.2 Gran % (42.2 - 75.2 %) 92.9 H 94.3 H Lymphocytes % (20.5 - 51.1 %) 2.8 L 2.2 L Monocytes % (1.7 - 9.3 %) 4.1 3.3 Eosinophils % (0 - 5 %) 0.1 0.1 Basophils % (0.0 - 2.0 %) 0.1 0.1 Absolute Granulocytes (1.4 - 6.5 /CUMM) 22.5 H 25.8 H Segmented Neutrophils (42.2 - 75.2 %) 95 H Band Neutrophils (0.0 - 5.0 %) 1 Absolute Lymphocytes (1.2 - 3.4 /CUMM) 0.7 L 0.6 L Lymphocytes (20.5 - 51.1 %) 2 L Monocytes (1.7 - 9.3 %) 2 Absolute Monocytes (0.10 - 0.60 /CUMM) 1.0 H 0.9 H Absolute Eosinophils (0.0 - 0.7 /CUMM) 0 0 Absolute Basophils (0.0 - 0.2 /CUMM) 0 0 Platelet Estimate (ADEQUATE) INCREASED INCREASED Polychromasia 1+ 2+ Hypochromic-Microcytic 1+ 2+ Poikilocytosis 1+ Basophilic Stippling 1+ Anisocytosis 1+ Macrocytic Cells 1+ PUBS MCHC (33.0 - 37.0 G/DL) 34.1 33.4 Assessment/Plan Assessment/Plan 12 days postop Granger's procedure for perforation of the sigmoid colon Final cultures of the peritoneal drains are negative, left drain was removed, continue right-sided pigtail catheter intra-abdominal drain. Continued care for primary team Continue antibiotics and Diflucan Continue tube feeds Continue G-tube When extubated, may start clears Staple removal likely this week, continue daily dressing changes
--- NOTE | 2016-09-07 07:00 | PN- Resident CRCU ---
MARA MONROY MD 09/07/16 0700: Subjective HPI/CRCU Issues: Patient seen and examined at bedside this AM. She is awake, alert and follows commands. She is more agitated this AM and was placed in gloves overnight as she was pulling as her ostomy bag. Her FiO2 requirements have decreased to 40% and she is doing well on AC ventilation. Radha's white count continues to trend down on fluconazole and meropenem but she was noted to be febrile overnight to 101.8 requiring IV tylenol. Patient continued to be slightly agitated throughout the AM and discussion with psychiatry was to restart home psych meds including trazodone, propranolol and sertraline. 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 Vital signs last 24 hours: T 98.3-101.6, HR 104-112, RR 20-31, BP 105-144/44-79, O2 92-95% on AC 2- TV 450 FiO2 40% 5 PEEP. Objective Vital Signs & I&O Last 8 Hrs of Vitals and I&O: Intake & Output 09/07 1600 Intake Total Output Total Balance Patient 156 lb Weight Weight Bed scale Measurement Method T 98.3-101.6, HR 104-112, RR 20-31, BP 105-144/44-79, O2 92-95% on AC 2- TV 450 FiO2 40% 5 PEEP. Exam General Appearance: well developed/nourished, no apparent distress, alert, awake , anxious, intubated Head: atraumatic, normal appearance Ears, Nose, Throat: normal pharynx, hearing grossly normal Neck: normal inspection, supple Respiratory: chest non-tender, no respiratory distress, Rhonchi occasionally bilateral lower lung rosenbaum Cardiovascular: regular rate/rhythm Gastrointestinal: normal bowel sounds, soft, non-tender, no organomegaly Extremities: normal inspection, 1-2+ bilateral lower extremity edema Cranial Nerves: normal hearing, PERRL Skin: normal color, warm/dry, Midline incision with khloe continues to appear clean/dry and is covered with white sterile dressing Skin Temp/Moisture Exam: Warm/Dry Weaning Parameters NIF: 31 Minute Volume: 11.7 Resp rate: 35 Vt: 330 Heart Rate: 112 Weaning Schedule Start Time: 2100 Minute Volume: 11.4 Resp Rate: 28 Vt: 420 Heart Rate: 115 End Time: 2130 Minute Volume: 10.8 Resp Rate: 35 Vt: 320 Heart Rate: 116 Nutrition Nutrition: tube feeding Current Medications: Current Medications Sig/Ry Start time Last Medication Dose Route Stop Time Status Admin Acetaminophen 1,000 MG .STK-MED ONE 09/06 2144 DC IV 09/06 214 Acetaminophen 1,000 MG Q6P PRN 08/27 0230 AC 09/06 N/A 1 UNIT IV 2206 Acetylcysteine 2 ML BID 09/06 1000 AC 09/07 INH 0812 Albuterol Sulfate 3 ML EVERY 4 HRS/AWAKE 09/01 2000 AC 09/07 INH 1227 Albuterol Sulfate 3 ML Q4H PRN 08/27 1000 AC 08/28 INH 1309 Chlorhexidine 15 ML TID 08/29 1000 AC 09/07 Gluconate PO 0923 Enoxaparin Sodium 40 MG DAILY 09/03 1000 AC 09/07 SC 0923 Fentanyl Citrate 1,000 MCG Q10H 09/02 2000 AC 09/07 Dextrose/Water 250 ML IV 0300 Fluconazole 400 MG Q24 08/30 1045 AC 09/07 Sodium Chloride 200 ML IV 0924 Lorazepam 2 MG ONE ONE 09/07 1045 DC 09/07 IV 09/07 1046 1054 Lorazepam 2 MG Q3P PRN 09/07 0800 AC 09/07 IV 0808 Lorazepam 2 MG Q4-PRN PRN 08/31 1730 DC 09/07 IV 0538 Magnesium Sulfate 1 GM ONCE ONE 09/07 0700 DC 09/07 Dextrose/Water 100 ML IV 09/07 1059 0830 Meropenem 1 GM IQ8 09/01 1600 AC 09/07 IV 0023 Pantoprazole Sodium 40 MG DAILY 08/27 1000 AC 09/07 IV 0923 Potassium Chloride 40 MEQ ONCE ONE 09/07 0830 DC 09/07 PO 09/07 0831 0921 Potassium Chloride 20 MEQ Q1H 09/07 0700 DC IV 09/07 0801 Propranolol HCl 10 MG AT BEDTIME 09/07 2199 UNVr PO Sertraline HCl 50 MG DAILY 09/07 1301 UNVr PO Trazodone HCl 200 MG AT BEDTIME 09/07 2199 UNVr PO Impression/Plan Impression/Problem List Impression: Ms. Camacho is a 60 year old female with PMH anxiety, depression, COPD , prior episode of severe clostridium difficile infection in 2016, tobacco abuse and gastritis who presented to the [facility] after one week of altered mental status, decreased oral intake and possible withdrawl symptoms as her clonazepam was being titrated off per doctor instructions. She was found to be hypotensive, febrile and altered while in the [facility]. In the ED: Vital signs showed Tmax 101.5, HR 116, RR 20, BP 93/62 and O2 saturation 90% on room air. Labs were significant for WBC 18.1 with 37 bands, H&H 13.7/41.6, Plt 623, Na 143 , K 3.6, Cl 107, HCO3 16, BUN/cre 28/1.8, Glu 98, Lactic acid 2.9, AST 62, ALT 42, CK 370, troponin 0.05, proBNP 26925, amylase 153, lipase <10, and UA with high protein, positive nitrite, high urobilinogen, 50 WBCs, moderate bacteria and large hgb. CXR showed no acute pulmonary process. Head CT was negative for acute pathology. Patient was admitted to the ICU and the following is the current management: 1. Severe sepsis secondary to peritonitis from perforated sigmoid colon with abscess formation * Patient febrile, + leukocytosis with bandemia, hypotensive and tachycardic on admission * Post-op day #12 from Harmann's procedure with Dr. Marcello MD; patient remains intubated off pressors, ostomy pink with + green liquid stool * Remove midline sutures in next few days * Patient s/p IR guided drainage on 09/02/16 of RUQ and LLQ fluid with drains in place * RUQ continues to drain, showed moderate WBC, few gram + cocci but no significant growth after 3 days * LLQ drain removed * If patient has another fever today/tonight, will likely repeat CT chest, abdomen, pelvis per ID recommendations * LRC shows pseudomonas resistant to zosyn; continue IV meropenem (day #7) and continue IV fluconazole to 400 g IV Q24 hours (day #8) * Continue tube feeds * Surgery follow up appreciated with Dr. Marcello MD 2. Metabolic encephalopathy * On admission, likely secondary to severe sepsis from sigmoid perforation/ peritonitis * CT head negative for acute intracranial pathology * Patient alert, oriented and appropriate to resume home psych meds: restart trazodone, propranolol and sertraline daily * Ativan PRN anxiety 3. Acute hypoxemic respiratory failure * Patient initially placed on non-rebreather but was transitioned to high flow nasal cannula/ BiPAP due to tachypnea/apparent respiratory distress * Patient tolerated BiPAP well but was intubated for Ho's procedure; FiO2 requirements have decreased to 40% * Begin trialing patient for extubation; consider ativan for anxiety to help success of trials * Consider trach if patient not able to be liberated in next few days * Aspiration precautions * Noted bilateral pleural effusions on CT chest, patient s/p thoracentesis on * Doppler BL LE to ruled out DVT 4. SIERRA, IMPROVED * Likely prerenal in the setting of severe sepsis; patient s/p IVF with improvement noted * Monitor renal function and electrolytes with ICU bundle * Monitor urine output, strict Is/Os 5. Sinus tachycardia with T wave changes, IMPROVED * Continuous telemetry monitoring * Troponins negative x 3 * Echo showed normal global LV function without wall motion abnormalities and normal pulm artery systolic pressure * Monitor vital signs closely 6. Thrombocytopenia, IMPROVED * Plt this AM increased to 523 (623 on admission) * Likely 2/2 coagulopathly from sepsis * 4Ts score placed patient at low risk for HIT (<5%) * Resumed SC lovenox on 09/02 7. Acute blood loss anemia * 1 U PRBC being given today due to low H&H of 7.7/23.1, follow up CBC * Patient given 3 U PRBC total since admission * Follow up CBC daily, monitor for bleeding FULL CODE Diet: Tube feeds DVTP: ALPS + SC lovenox Pain: Fentanyl drip Problem List: 1. Status post Ho's procedure 2. History of adenomatous polyp of colon 3. Diverticulosis of colon 4. Malnutrition 5. History of Clostridium difficile infection 6. Lactic acidosis 7. Hypotension 8. Perforated viscus Pain Ratin Tomorrow's Labs & Rationales: CBC (leukocytosis) ICU bundle (hyponatremia) Plan DVT/Prophylaxis: pharmacological GARY CARIAS MD 09/07/16 0929: Attending MD Review Statement Attending Sign Off Attending Cosign Statement: I have: examined this patient, reviewed al EMR data, personally reviewd images, discussd w/resident/PA/BANQUET WAITER/WAITRESS, discussed mgmt plan w/kavya, discussed mgmt plan w/CM, discussed mgmt plan w/pt, agreed w/resident/PA/BANQUET WAITER/WAITRESS, amended to note. Other Findings: I, Cassandra Macdonald.D. have examined this patient, reviewed available EMR data, personally reviewed images, discussed with resident/PA/BANQUET WAITER/WAITRESS, discussed management plan with housestaff and nursing staff, discussed managment plan all of healthcare providers, discussed management plan with patient and/or family, agreed with resident/PA/BANQUET WAITER/WAITRESS. The past history and parts of the chart have been autopopulated. Impression 60 year old woman * pericolic abscess s/p drainage and sigmoid colectomy with end colostomy, now s /p drainage catheter placement by IR for fluid collections in right upper and left lower abdomen * abdominal fluid and pleural effusions Plan Respiratory -TRC/Nebs -aspiration precautions -reduce fio2 as tolerated -CPAP trials - has not been able to be liberated given tachypnea -if within the next few days remains intubated, will plan for trach ID -continue abx -ID consultation follow up -on meropenem and fluconazole CVS -monitor hemodynamics Heme -monitor cbc, coags Metabolic -monitor electrolytes, ins/outs, creatinine Alimentary -f/u surgery -nutrition input Neuro -anxiolysis, psych follow up when extubated DVT prophylaxis at all times - lovenox TTS 35 min
--- NOTE | 2016-09-07 07:33 | NUR ---
PT REMAINS INTUBATED/VENTED W/FIO2 40% POX 93-96%, LS CLEAR/DIMINSHED AT THE BASES. AT TIMES STACKS HER BREATH, RR> 30-40'S, >HR 110'S & FIDGETY THROUGHOUT ESPECIALLY WHEN SHE'S ANXIOUS/AWAKE. ATIVAN IV Q4HR PRN SEE EMAR. CONT TO BE RESTLESS MOST OF THE NIGHT, REASSURANCE GIVEN. DESPITE HAVING ESSENCE WRIST RESTRAINTS PT MANAGED TO PULLED OUT THE OSTOMY BAG, WATERY STOOL LG AMT SEEPED OUT COLOSTOMY BAG CHANGED ST ON THE MONITOR HR 100-110'S, SBP 110-130'S FC INSITU & DRAINING FABIAN URINE GOOD AMT. PERCUTANOEUS DRAIN TO RLQ DRAINING MIN AMT OF YELLOW/PURULENT D/C 10CC NS FLUSHED GIVEN. LLQ D/C, DRSG PLACED & MIDLINE ABD INCISION INTACT W/ALEM EXCEPT THE PROXIMAL END, NO D/C NOTED DONE BY ELMA SUAREZ. STOMA IS PINK BUT RETRACTED & LESION? AROUND THE STOMA. SURROUNDING AREA OF THE STOMA IS LUPE/RAW & BLEEDING AT THE BOTTOM OF WAFER END. NEED OSTOMY OR WOUND RN TO ASSESS THE SKIN AREA. CONT ON FENT GTT @50MCG/HR FOR COMFORT. OGT/TF VAUGHN WELL MIN RESIDUALS. CONT TO MONITOR. 0730 RN ISAÍAS ASSUME CARE.
[2016-09-07 08:00] VITALS: BP 142/80
--- NOTE | 2016-09-07 08:30 | NUR ---
REC'D THE PT ORALLY INTUBATED AND MECHANICALLY VENTILATED PER MD ORDER. PT IS RESTLESS AND AGITATED-MOVING ALL OVER THE BED AND CONSTANTLY DANGLING THE LLE OVER THE SIDE OF THE BED. ATIVAN 2MG IV ADMINISTERED AT 0808 WHEN THE SAS WAS 4-5. FOLLOWS COMMANDS, HOWEVER, WITHIN A FEW MINUTES OF EXPLANATION BEING GIVEN TO WHY SHE NEEDS TO REMAIN CALM, THE PT BECOMES RESTLESS AGAIN. PT IS IN A ST IN THE 110'S WITHOUT ECTOPY PER THE ROLLWAY WORKER. HAS GENERALIZED 3+ EDEMA. ESSENCE BS WITH RHONCHI TO THE L/RUL AND DIMINISHED AT THE BASES WELL THE RML. O2 SAT IS ONLY 93% ON AN FIO2 OF 40%. ABD IS SOFT WITH A MIDLINE STAPLE LINE-DRESSING TO THE BASE OF THE INCISION REMAINS CLEAN, DRY AND INTACT. LUQ COLOSTOMY IN PLACE DRAINING WATERY BROWN STOOL. PERCUTANEOUS DRAIN TO RUQ REMAINS IN PLACE, DRAINING BROWN LIQUID. FLUSHED AT 0600 PER PREVIOUS RN. TOBAR DRAINING CLEAR YELOW URINE. PT TO RECEIVE 1 UNIT PRBC'S. CURRENTLY REEIVING 1 GM MAG SULFATE VIA THE PURPLE PORT OF THE ANASTACIA PICC. PT WILL RECEIVE KLOR 40 MEQ VIA THE OGT RATHER THAN THE 20MEQ IV X2 ORDERED. REMAINS ON FENTANYL 25MCG/HR OR 12.5ML/HR PER MD ORDER.
--- NOTE | 2016-09-07 09:43 | RADIOLOGY REPORT ---
EXAMINATION: XR PORTABLE CHEST CLINICAL INFORMATION: ET tube placement. Septic shock. COMPARISON: Chest x-rays 09/06/2016. TECHNIQUE: Portable frontal view of the chest was obtained. FINDINGS: The tip of the ET tube is 5.7 cm above the level of the evelio. The enteric tube is noted extending below the level of the image. The right PICC line appears unchanged in position with the tip at the cavoatrial junction. The pigtail catheter in the right upper abdomen is partially visualized. There are multiple monitor leads overlying the chest. Both lung rosenbaum are well expanded. There are opacities at the lower zones bilaterally which appear similar compared to the prior study. There are small bilateral pleural effusions. There are no pneumothoraces. There are no acute osseous findings. IMPRESSION: 1. The study demonstrates tubes and lines as described above. 2. Stable lower zone opacities and small pleural effusions.
--- NOTE | 2016-09-07 10:42 | PN- Infect Dx ---
Subjective Subjective: MAXIMUM TEMPERATURE 101.2 without complaints. She has apparently been restless, pulling out the ostomy bag. Objective Last 24 Hrs of Vital Signs/I&O Vital Signs Date Time Temp Pulse Resp B/P B/P Pulse O2 O2 Flow FiO2 Mean Ox Delivery Rate 09/07 0805 40 09/07 0558 40 09/07 0405 40 09/07 0400 97 Ventilator 40% 09/07 0106 40 09/07 0000 98.6 109 28 137/66 92 Ventilator 40% 09/07 0000 92 Ventilator 40% 09/06 2305 98.6 09/06 2243 40 09/06 2206 101.2 09/06 2000 93 Ventilator 40% 09/06 1915 40 09/06 1625 40 09/06 1600 93 Ventilator 40% 09/06 1600 98.3 110 31 122/64 93 Ventilator 40% 09/06 1210 40 09/06 1200 92 Ventilator 40% Intake & Output 09/07 1600 09/07 0800 09/07 0000 Intake Total 774 872 Output Total 875 1070 Balance -101 -198 Intake, IV 136 262 Intake, Oral 0 Intake, Tube 518 490 Feeding Intake, Tube 120 120 Irrigant Output, 0 60 Drainage Output, Stool 150 400 Output, Urine 725 610 Physical Exam Other Physical Findings: She is awake and alert in no acute distress on the ventilator Lungs are clear Heart regular rhythm with a 1/6 systolic ejection murmur Abdomen is distended, mildly tender to palpation diffusely, with positive bowel sounds; liquid stool in the colostomy; right upper quadrant drain with 80 mL output yesterday and with seropurulent drainage noted in the bag Extremities 1+ edema both lower extremities; PICC in the right upper extremity with no inflammation at the site Fulton catheter remains in place Results Last 24 Hours of Lab Results: Laboratory Tests 09/07 09/07 0440 0415 Blood Gas pH (7.35 - 7.45 PH) 7.50 H pCO2 (35 - 45 TORR) 32 L pO2 (80 - 100 TORR) 68 L HCO3 (21 - 28 MEQ/L) 25 ABG O2 Sat (Measured) (>96.0 %) 93.0 L P-50 (Temp Corrected) Y Carboxyhemoglobin (1.5 - 5.0 %) 0.1 L O2 Concentration % 40% Temperature (97.0 - 100.0 FARH) 98.3 Respiration Rate (BPM) 20 O2 Delivery Method ESPRIT Vent Mode AC Expiratory Pressure (CMH2O/P) 5 Tidal Volume (CC) 450 Chemistry Sodium (137 - 145 mmol/L) 135 L Potassium (3.5 - 5.1 mmol/L) 3.7 Chloride (98 - 107 mmol/L) 102 Carbon Dioxide (22 - 30 mmol/L) 25 Anion Gap (5 - 16) 8 BUN (7 - 17 mg/dL) 9 Creatinine (0.5 - 1.0 mg/dL) 0.5 Estimated GFR (>60 ml/min) > 60 Glucose (65 - 99 mg/dL) 78 Calcium (8.4 - 10.2 mg/dL) 7.4 L Phosphorus (2.5 - 4.5 mg/dL) 3.5 Magnesium (1.6 - 2.3 mg/dL) 1.9 Total Bilirubin (0.2 - 1.3 mg/dL) 0.5 AST (14 - 36 U/L) 25 ALT (9 - 52 U/L) 30 Albumin (3.5 - 5.0 g/dL) 1.8 L Hematology CBC w Diff MAN DIFF ORDERED WBC (4.8 - 10.8 /CUMM) 22.0 H RBC (4.20 - 5.40 /CUMM) 2.52 L Hgb (12.0 - 16.0 G/DL) 7.7 L Hct (37 - 47 %) 23.1 L MCV (81.0 - 99.0 FL) 91.6 MCH (27.0 - 31.0 PG) 30.6 RDW (11.5 - 14.5 %) 15.4 H Plt Count (130 - 400 /CUMM) 523 H MPV (7.4 - 10.4 FL) 8.5 Gran % (42.2 - 75.2 %) 91.9 H Lymphocytes % (20.5 - 51.1 %) 3.0 L Monocytes % (1.7 - 9.3 %) 4.9 Eosinophils % (0 - 5 %) 0.1 Basophils % (0.0 - 2.0 %) 0.1 Absolute Granulocytes (1.4 - 6.5 /CUMM) 20.3 H Segmented Neutrophils (42.2 - 75.2 %) 89 H Band Neutrophils (0.0 - 5.0 %) 2 Absolute Lymphocytes (1.2 - 3.4 /CUMM) 0.7 L Lymphocytes (20.5 - 51.1 %) 2 L Monocytes (1.7 - 9.3 %) 7 Absolute Monocytes (0.10 - 0.60 /CUMM) 1.1 H Absolute Eosinophils (0.0 - 0.7 /CUMM) 0 Absolute Basophils (0.0 - 0.2 /CUMM) 0 Platelet Estimate (ADEQUATE) INCREASED Polychromasia 1+ Poikilocytosis 1+ Ovalocytes 1+ PUBS MCHC (33.0 - 37.0 G/DL) 33.4 Miscellaneous Phlebotomy Draw Site LEFT BRACHIAL Other Body Source Fld Total RBCs Counted (%) 100 Last 24 Hours of [place] Results: Blood cultures September 04 negative Recent Imaging Studies: Chest x-ray September 07 stable lower zone opacities and small pleural effusions Dopplers of both lower extremities September 06 no evidence for DVT; a 3 x 0.8 x 1 cm left-sided popliteal fossa Bhardwaj's cyst is noted Assessment/Plan Impression: Recurrent fever with white blood cell count decreasing, though still elevated, now 6 days status post drainage of purulent fluid from the right upper quadrant collection, with cultures of this collection and from the left lower quadrant collection negative. Possible sources of this fever include a persistent intra- abdominal infection, perhaps secondary to undrained fluid, or a pulmonary process, such as atelectasis, with the recent CT scan revealing complete collapse of the right middle lobe with bilateral pleural effusions. She did undergo a right thoracentesis which was suggestive of a transudate. She remains on Meropenem and Fluconazole for a polymicrobial peritonitis secondary to a perforated sigmoid colon now 12 days status post Granger's procedure, with Clostridium isolated from the initial blood culture. Pseudomonas has been isolated from her sputum cultures, either representing pneumonia or colonization , with her respiratory status improving. The recent CT scan did reveal wedge- shaped areas of hypoenhancement within the spleen, suggesting splenic infarcts, which are of unclear significance. Suggestion: 1. Continue to monitor temperatures and white blood cell count closely 2. If fevers recur would reculture and consider a repeat CT of the chest, abdomen and pelvis 3. Continue Meropenem and Fluconazole
[2016-09-07 12:00] VITALS: BP 142/80
[2016-09-07 16:00] VITALS: BP 138/80
[2016-09-07 17:08] LABS: ABSOLUTE BASOPHIL COUNT 0 /CUMM (0.0-0.2); ABSOLUTE EOSINOPHIL COUNT 0 /CUMM (0.0-0.7); ABSOLUTE GRANULOCYTE CT 21.9 /CUMM (1.4-6.5); ABSOLUTE MONOCYTE COUNT 1.1 /CUMM (0.10-0.60); BASOPHIL % 0.1 % (0.0-2.0); EOSINOPHIL % 0.1 % (0-5); GRANULOCYTE % 91.1 % (42.2-75.2); HEMATOCRIT 26.8 % (37-47); MEAN CORPUSCULAR HGB 29.9 PG (27.0-31.0); MEAN CORPUSCULAR HGB CONC 32.5 G/DL (33.0-37.0); MEAN CORPUSCULAR VOLUME 91.8 FL (81.0-99.0); MEAN PLATELET VOLUME 8.3 FL (7.4-10.4); PLATELET COUNT 529 /CUMM (130-400); RED BLOOD CELL CT 2.92 /CUMM (4.20-5.40)
--- NOTE | 2016-09-07 19:07 | NUR ---
THE PT'S TEMP WAS 102 VIA THE TEMPORAL ARTERY THERMOMETER AT 1600. DR LISA BRISENO NOTIFIED. BLOOD CULTURES X2 OBTAINED WELL A URINE CULTURE AND A STOOL CULTURE. TEMP RECHECKED AT 1700 AND WAS 100.2. AGAIN NOTIFIED. PTISTO GO FOR A CT SCAN OF THE ABD/PELVIS AT 2030. PT RECEIVED ATIVAN 2MG IV AT 1800. IN ADDITION, THE PT'S FSG WAS 82 AT 1800. MEDICATED WITH 25GM D50 AT 1815,
--- NOTE | 2016-09-07 22:19 | CT SCAN REPORT ---
EXAMINATION: CT ABD PELVIS W/O IV CONTRAS, CT CHEST WO IV CONTRAST CLINICAL INFORMATION: 60-year-old female patient with a presumptive diagnosis of intra-abdominal abscess/inflammatory process. Fever to 102 degrees despite antibiotic therapy. COMPARISON: CT of the chest, abdomen, and pelvis on 08/26/2016, 08/31/2016, and 09/04/2016. TECHNIQUE: CT of the chest, abdomen, and pelvis without IV contrast. Coronal and sagittal reformats obtained at the acquisition workstation. This exam is severely limited by the lack of IV contrast. FINDINGS: CHEST: There is bilateral compression atelectasis of the lower lobes due to moderate-sized pleural effusions. No improvement. There has been reaeration of the right middle lobe. The endotracheal tube remains in the mid trachea. NG tube is directed into the stomach. Jugular venous catheter terminates in the mid SVC. ABDOMEN/PELVIS: A pigtail catheter remains directed into the abdominal cavity lateral to the right lobe liver. The fluid in the abdominal cavity has not increased in volume. Located collection is seen in Morison's pouch. Another fluid loculation may be present along the right pericolic gutter. There is some fluid in the cul-de-sac. Without IV contrast, it is difficult to separate the solid viscera of the abdomen from the intestinal tract. Neither kidney shows evidence of hydronephrosis. Splenic infarcts are visible without IV contrast. The left-sided colostomy is in place. Severe generalized anasarca persists. No improvement. IMPRESSION: 1. Moderate bilateral pleural effusions with compression atelectasis of both lower lobes. 2. Pockets of ascitic fluid in the peroneal cavity. 3. Diffuse anasarca.
--- NOTE | 2016-09-07 23:57 | NUR ---
LIGHTLY SEDATED WITH FENTANYL GTT.FOLLOWS COMMANDS.SLOAN WITH +CMS.+PP.GEN EDEMA. LUNG SOUNDS COARSE THROUGHOUT. ON VENTILATOR WITH SATS >92%.NO CHANGE TO VENT SETTINGS.ATTEMPTED CPAP TRIALS WITH NO RESPIRATORY DISTRESS.ORAL CARE DONE.@[id number] SBP DECREASED TO 60'S BUT PT ASYMPTOMATIC. MADE AWARE AND IV BOLUS GIVEN WITH FAIR EFFECT. OGT INTACT WITH TF DRAINING WITH MIN RESIDUALS. CT ABD,PELVIC AND CHEST DONE WITH NO ISSUES.TOBAR PULLED OUT AND NEW INSERTED WITH NO ISSUES.NO PRESSURE ULCERS NOTED.ABD INCISION CDI. RIGHT PIGTAIL DRAIN PATENT.OSTOMY PATENT.PLAN OF CARE REVIEWED
[2016-09-08 05:16] LABS: ABSOLUTE BASOPHIL COUNT 0.1 /CUMM (0.0-0.2); ABSOLUTE EOSINOPHIL COUNT 0.1 /CUMM (0.0-0.7); ABSOLUTE GRANULOCYTE CT 19.6 /CUMM (1.4-6.5); ABSOLUTE LYMPH COUNT 0.9 /CUMM (1.2-3.4); ABSOLUTE MONOCYTE COUNT 0.9 /CUMM (0.10-0.60); BASOPHIL % 0.5 % (0.0-2.0); EOSINOPHIL % 0.2 % (0-5); GRANULOCYTE % 90.8 % (42.2-75.2); HEMATOCRIT 24.2 % (37-47); MEAN CORPUSCULAR HGB 30.7 PG (27.0-31.0); MEAN CORPUSCULAR HGB CONC 33.2 G/DL (33.0-37.0); MEAN CORPUSCULAR VOLUME 92.4 FL (81.0-99.0); MEAN PLATELET VOLUME 8.7 FL (7.4-10.4); PLATELET COUNT 500 /CUMM (130-400); RBC DISTRIBUTION WIDTH 14.7 % (11.5-14.5); RED BLOOD CELL CT 2.62 /CUMM (4.20-5.40); WHITE BLOOD CELL COUNT 21.6 /CUMM (4.8-10.8)
--- NOTE | 2016-09-08 07:08 | PN- Resident CRCU ---
ELIANA BAILEY,MARA 09/08/16 0708: Subjective HPI/CRCU Issues: Patient seen and examined at bedside this AM. She is laying comfortably in bed less agitated than yesterday. She continues to have RUQ drain that put out 125 cc in the last 24 hours. The fluid from this RUQ drain is more clear and contains minimal purulent material. Her colostomy remains intact with great stool output, with 1070 cc output in the last 24 hours. Of note, Radha spiked a fever yesterday to 102 at 4 PM, otherwise her vital signs ahve been stable. 24 Hour Events: Telemetry events: HR briefly up to 170s yesterday but otherwise no events. Vital signs last 24 hours: T 97.9-102.0, HR 85-117, RR 20-40, BP 86-151/57-78, O2 sat 92-95% on AC 20 TV 450 FiO2 40% and 5 PEEP. Total intake last 24 hours: 3045 cc Total output last 24 hours: 4310 cc Objective Vital Signs & I&O Last 8 Hrs of Vitals and I&O: T 97.9-102.0, HR 85-117, RR 20-40, BP 86-151/57-78, O2 sat 92-95% on AC 20 TV 450 FiO2 40% and 5 PEEP. Exam General Appearance: well developed/nourished, no apparent distress, alert, awake , comfortable, intubated Head: atraumatic, normal appearance Ears, Nose, Throat: normal pharynx, hearing grossly normal Neck: normal inspection, supple Respiratory: normal breath sounds, chest non-tender, Decreased breath sounds bilateral bases, occasional basal rhonchi Cardiovascular: regular rate/rhythm Gastrointestinal: normal bowel sounds, soft, non-tender Extremities: normal inspection, no edema Cranial Nerves: normal hearing, PERRL Skin: normal color, warm/dry Skin Temp/Moisture Exam: Warm/Dry Weaning Parameters NIF: 29 Minute Volume: 14.2 Resp rate: 52 Vt: 255 Heart Rate: 114 Weaning Schedule Start Time: 1914 Minute Volume: 15.0 Resp Rate: 40 Vt: 380 Heart Rate: 114 End Time: 2009 Minute Volume: 14.0 Resp Rate: 44 Vt: 280 Heart Rate: 114 Nutrition Nutrition: tube feeding Current Medications: Current Medications Sig/Ry Start time Last Medication Dose Route Stop Time Status Admin Acetaminophen 1,000 MG .STK-MED ONE 09/07 1655 DC IV 09/07 1656 Acetaminophen 1,000 MG Q6P PRN 08/27 0230 AC 09/06 N/A 1 UNIT IV 2206 Acetylcysteine 2 ML BID 09/06 1000 AC 09/07 INH 1715 Albuterol Sulfate 3 ML EVERY 4 HRS/AWAKE 09/01 2000 AC 09/08 INH 0651 Albuterol Sulfate 3 ML Q4H PRN 08/27 1000 AC 08/28 INH 1309 Chlorhexidine 15 ML TID 08/29 1000 AC 09/08 Gluconate PO 1014 Dextrose 25 GM ONCE ONE 09/07 1815 DC 09/07 IV 09/07 181 1816 Enoxaparin Sodium 40 MG DAILY 09/03 1000 AC 09/08 SC 1014 Fentanyl Citrate 1,000 MCG Q20H 09/07 1900 AC 09/07 Dextrose/Water 250 ML IV 2200 Fentanyl Citrate 1,000 MCG Q10H 09/02 2000 DC 09/07 Dextrose/Water 250 ML IV 09/07 1900 0300 Fluconazole 400 MG Q24 08/30 1045 AC 09/08 Sodium Chloride 200 ML IV 1014 Furosemide 20 MG ONCE ONE 09/08 07 DC 09/08 IV 09/08 0701 0844 Lorazepam 2 MG Q3P PRN 09/07 0800 AC 09/08 IV 1024 Magnesium Sulfate 1 GM ONCE ONE 09/08 07 DC 09/08 Dextrose/Water 100 ML IV 09/08 1059 0844 Meropenem 1 GM IQ8 09/01 1600 AC 09/08 IV 0843 Pantoprazole Sodium 40 MG DAILY 08/27 1000 AC 09/08 IV 1014 Potassium Chloride 20 MEQ Q1H 09/08 0700 DC 09/08 IV 09/08 0801 0824 Propranolol HCl 10 MG AT BEDTIME 09/07 2200 AC 09/07 PO 2200 Sertraline HCl 50 MG DAILY 09/07 1301 AC 09/08 PO 1014 Sodium Chloride 500 ML BOLUS ONE 09/08 0015 DC 09/08 IV 09/08 0114 0014 Trazodone HCl 200 MG AT BEDTIME 09/07 2200 AC 09/07 PO 2200 CXR Findings: IMPRESSION: 1. Endotracheal tube tip approximately 4 cm above the evelio. 2. Right subclavian PICC line in mid SVC. 3. Enteric tube courses into the abdomen with tip not included. 4. No interval change in bilateral small pleural effusions and associated bibasilar atelectatic changes. Impression/Plan Impression/Problem List Impression: Ms. Camacho is a 60 year old female with PMH anxiety, depression, COPD , prior episode of severe clostridium difficile infection in 2016, tobacco abuse and gastritis who presented to the [facility] ED after one week of altered mental status, decreased oral intake and possible withdrawl symptoms as her clonazepam was being titrated off per doctor instructions. She was found to be hypotensive, febrile and altered while in the [facility] ED. In the ED: Vital signs showed Tmax 101.5, HR 116, RR 20, BP 93/62 and O2 saturation 90% on room air. Labs were significant for WBC 18.1 with 37 bands, H&H 13.7/41.6, Plt 623, Na 143 , K 3.6, Cl 107, HCO3 16, BUN/cre 28/1.8, Glu 98, Lactic acid 2.9, AST 62, ALT 42, CK 370, troponin 0.05, proBNP 39345, amylase 153, lipase <10, and UA with high protein, positive nitrite, high urobilinogen, 50 WBCs, moderate bacteria and large hgb. CXR showed no acute pulmonary process. Head CT was negative for acute pathology. Patient was admitted to the ICU and the following is the current management: 1. Severe sepsis secondary to peritonitis from perforated sigmoid colon with abscess formation * Patient febrile, + leukocytosis with bandemia, hypotensive and tachycardic on admission * Post-op day #13 from Harmann's procedure with Dr. Marcello MD; patient remains intubated off pressors, ostomy pink with + green liquid stool * Remove midline sutures in next few days * Patient s/p IR guided drainage on 09/02/16 of RUQ and LLQ fluid with drains in place * RUQ continues to drain, showed moderate WBC, few gram + cocci but no significant growth after 3 days * LLQ drain removed * Patient had CT chest, abdomen, pelvis last night for Tmax 102, shows persistent effusions, pockets of ascitic fluid in Morisons pouch and right pericolic gutter and diffuse anasarca * LRC shows pseudomonas resistant to zosyn; continue IV meropenem (day #8) and continue IV fluconazole to 400 g IV Q24 hours (day #9) * Persistent leukocytosis noted, repeat sputum culture and stool for CDiff today * Repeat CT abdomen/pelvis WITH ORAL AND IV contrast if patient spikes another fever * Continue tube feeds * Surgery follow up appreciated with Dr. Marcello MD 2. Metabolic encephalopathy, IMPROVING * On admission, likely secondary to severe sepsis from sigmoid perforation/ peritonitis * CT head negative for acute intracranial pathology * Patient alert, oriented and appropriate; home psych meds restarted including trazodone, propranolol and sertraline daily * Ativan PRN anxiety 3. Acute hypoxemic respiratory failure * Patient initially placed on non-rebreather but was transitioned to high flow nasal cannula/ BiPAP due to tachypnea/apparent respiratory distress * Patient tolerated BiPAP well but was intubated for Ho's procedure; FiO2 requirements somewhat increased to day from 40% to 50% so 20 IV lasix given with noted improved output * Trial for extubation once FiO2 40% or less * Aspiration precautions * Noted bilateral pleural effusions on CT chest, patient s/p thoracentesis on * Doppler BL LE to ruled out DVT 4. SIERRA, IMPROVED * Likely prerenal in the setting of severe sepsis; patient s/p IVF with improvement noted * Monitor renal function and electrolytes with ICU bundle * Monitor urine output, strict Is/Os 5. Sinus tachycardia with T wave changes, IMPROVED * Continuous telemetry monitoring * Troponins negative x 3 * Echo showed normal global LV function without wall motion abnormalities and normal pulm artery systolic pressure * Monitor vital signs closely 6. Thrombocytopenia, RESOLVED * Plt this AM increased to 500 (623 on admission) * Likely 2/2 coagulopathly from sepsis * 4Ts score placed patient at low risk for HIT (<5%) * Resumed SC lovenox on 09/02 7. Acute blood loss anemia * Patient given 3 U PRBC total since admission * H&H stable this AM * Follow up CBC daily, monitor for bleeding FULL CODE Diet: Tube feeds DVTP: ALPS + SC lovenox Pain: Fentanyl drip Problem List: 1. History of adenomatous polyp of colon 2. Diverticulosis of colon 3. Malnutrition 4. Lactic acidosis 5. Hypotension 6. Perforated viscus Pain Ratin Tomorrow's Labs & Rationales: CBC (persistent leukocytosis) ICU bundle (s/p diuresis, renal dysfunction) Plan DVT/Prophylaxis: pharmacological ABELARDO CARIAS MD 09/08/16 0920: Attending MD Review Statement Attending Sign Off Attending Cosign Statement: I have: examined this patient, reviewed avalbl EMR data, personally reviewd images, discussd w/resident/PA/MARKET RESEARCH INTERVIEWER, discussed mgmt plan w/kavya, discussed mgmt plan w/CM, discussed mgmt plan w/pt, agreed w/resident/PA/MARKET RESEARCH INTERVIEWER, amended to note. Other Findings: IAbelardo M.D. have examined this patient, reviewed available EMR data, personally reviewed images, discussed with resident/PA/MARKET RESEARCH INTERVIEWER, discussed management plan with housestaff and nursing staff, discussed managment plan all of healthcare providers, discussed management plan with patient and/or family, agreed with resident/PA/MARKET RESEARCH INTERVIEWER. The past history and parts of the chart have been autopopulated. Impression 60 year old woman * Hypoxemic respiratory failure slowly improving * Sepsis with leukocytosis secondary to pericolic abscess s/p drainage and sigmoid colectomy with end colostomy, now s/p drainage catheter placement by IR for fluid collections in right upper and left lower abdomen * abdominal fluid and pleural effusions Plan Respiratory -TRC/Nebs -aspiration precautions -reduce fio2 as tolerated -CPAP trials - has not been able to be liberated given tachypnea -if within the next few days remains intubated, will plan for trach ID -continue abx -ID follow up -imaging reviewed -on meropenem and fluconazole CVS -monitor hemodynamics Heme -monitor cbc, coags Metabolic -monitor electrolytes, ins/outs, creatinine Alimentary -f/u surgery -nutrition input Neuro -anxiolysis, psych follow up when extubated DVT prophylaxis at all times - lovenox TTS 35 min
--- NOTE | 2016-09-08 07:43 | PN- General Surgery ---
See Addendum Subjective Subjective: + fever, more alert , no co pain, no abd tenderness. Objective Vital Signs and I&Os Vital Signs Date Time Temp Pulse Resp B/P B/P Pulse O2 O2 Flow FiO2 Mean Ox Delivery Rate 09/08 0524 40 09/08 0331 40 09/08 0106 40 09/08 0000 93 Ventilator 40% 09/07 2206 40 09/07 2200 111 23 106/63 09/07 2000 93 Ventilator 40% 09/07 1919 40 09/07 1715 40 09/07 1600 95 Ventilator 40% 09/07 1600 102.0 113 20 138/80 95 Ventilator 40% 09/07 1335 40 09/07 1230 40 09/07 1200 93 Ventilator 40% 09/07 1200 99.4 115 29 142/80 93 Ventilator 40% 09/07 0805 40 09/07 0800 93 Ventilator 40% 09/07 0800 99.4 115 27 142/80 93 Ventilator 40% Intake & Output 09/08 0809/08 0000 09/07 1600 09/07 0800 09/07 0000 09/06 1600 Intake Total 703 1315 1460 486 639 4094 Output Total 1420 1410 1652 314 3536 955 Balance -717 -95 90 -101 -198 335 Intake, Blood 270 Product Intake, IV 23 575 507 136 262 750 Intake, Oral 0 0 Intake, Other 60 0 Intake, Tube 560 560 503 518 490 420 Feeding Intake, Tube 120 180 120 120 120 120 Irrigant Output, 50 55 0 60 30 Drainage Output, Other 20 Output, Stool 450 370 250 150 400 75 Output, Urine 378 304 8708 725 610 850 Patient 156 lb 158 lb Weight Weight Bed scale Bed scale Measurement Method Physical Exam: Intubated, awake and alert Heart: Regular rate and rhythm Lungs: coarse anterior Abdomen: Mild clip erythema, incision is healing well, distal aspect of incision that is left open with granulating tissue present and minimal amount of serous drainage. Small amount of Packing was changed. Stoma is pink and viable, small amount of stool noted in the bag. right sided abdominal pigtail drain with small amount of clear serous drainage 105 mL's of fluid drained overnight from the right side Results Last 48 Hours of Labs: Laboratory Tests 09/08 09/07 0353 1630 Chemistry Sodium (137 - 145 mmol/L) 133 L Potassium (3.5 - 5.1 mmol/L) 3.7 Chloride (98 - 107 mmol/L) 103 Carbon Dioxide (22 - 30 mmol/L) 23 Anion Gap (5 - 16) 7 BUN (7 - 17 mg/dL) 9 Creatinine (0.5 - 1.0 mg/dL) 0.5 Estimated GFR (>60 ml/min) > 60 Glucose (65 - 99 mg/dL) 91 Calcium (8.4 - 10.2 mg/dL) 7.1 L Phosphorus (2.5 - 4.5 mg/dL) 3.6 Magnesium (1.6 - 2.3 mg/dL) 1.9 Total Bilirubin (0.2 - 1.3 mg/dL) 0.5 AST (14 - 36 U/L) 22 ALT (9 - 52 U/L) 35 Albumin (3.5 - 5.0 g/dL) 1.7 L Hematology CBC w Diff NO MAN DIFF REQ NO MAN DIFF REQ WBC (4.8 - 10.8 /CUMM) 21.6 H 24.0 H RBC (4.20 - 5.40 /CUMM) 2.62 L 2.92 L Hgb (12.0 - 16.0 G/DL) 8.1 L 8.7 L Hct (37 - 47 %) 24.2 L 26.8 L MCV (81.0 - 99.0 FL) 92.4 91.8 MCH (27.0 - 31.0 PG) 30.7 29.9 RDW (11.5 - 14.5 %) 14.7 H 15.0 H Plt Count (130 - 400 /CUMM) 500 H 529 H MPV (7.4 - 10.4 FL) 8.7 8.3 Gran % (42.2 - 75.2 %) 90.8 H 91.1 H Lymphocytes % (20.5 - 51.1 %) 4.1 L 4.0 L Monocytes % (1.7 - 9.3 %) 4.4 4.7 Eosinophils % (0 - 5 %) 0.2 0.1 Basophils % (0.0 - 2.0 %) 0.5 0.1 Absolute Granulocytes (1.4 - 6.5 /CUMM) 19.6 H 21.9 H Absolute Lymphocytes (1.2 - 3.4 /CUMM) 0.9 L 1.0 L Absolute Monocytes (0.10 - 0.60 /CUMM) 0.9 H 1.1 H Absolute Eosinophils (0.0 - 0.7 /CUMM) 0.1 0 Absolute Basophils (0.0 - 0.2 /CUMM) 0.1 0 PUBS MCHC (33.0 - 37.0 G/DL) 33.2 32.5 L 09/07 09/07 0440 0415 Blood Gas pH (7.35 - 7.45 PH) 7.50 H pCO2 (35 - 45 TORR) 32 L pO2 (80 - 100 TORR) 68 L HCO3 (21 - 28 MEQ/L) 25 ABG O2 Sat (Measured) (>96.0 %) 93.0 L P-50 (Temp Corrected) Y Carboxyhemoglobin (1.5 - 5.0 %) 0.1 L O2 Concentration % 40% Temperature (97.0 - 100.0 FARH) 98.3 Respiration Rate (BPM) 20 O2 Delivery Method ESPRIT Vent Mode AC Expiratory Pressure (CMH2O/P) 5 Tidal Volume (CC) 450 Chemistry Sodium (137 - 145 mmol/L) 135 L Potassium (3.5 - 5.1 mmol/L) 3.7 Chloride (98 - 107 mmol/L) 102 Carbon Dioxide (22 - 30 mmol/L) 25 Anion Gap (5 - 16) 8 BUN (7 - 17 mg/dL) 9 Creatinine (0.5 - 1.0 mg/dL) 0.5 Estimated GFR (>60 ml/min) > 60 Glucose (65 - 99 mg/dL) 78 Calcium (8.4 - 10.2 mg/dL) 7.4 L Phosphorus (2.5 - 4.5 mg/dL) 3.5 Magnesium (1.6 - 2.3 mg/dL) 1.9 Total Bilirubin (0.2 - 1.3 mg/dL) 0.5 AST (14 - 36 U/L) 25 ALT (9 - 52 U/L) 30 Albumin (3.5 - 5.0 g/dL) 1.8 L Hematology CBC w Diff MAN DIFF ORDERED WBC (4.8 - 10.8 /CUMM) 22.0 H RBC (4.20 - 5.40 /CUMM) 2.52 L Hgb (12.0 - 16.0 G/DL) 7.7 L Hct (37 - 47 %) 23.1 L MCV (81.0 - 99.0 FL) 91.6 MCH (27.0 - 31.0 PG) 30.6 RDW (11.5 - 14.5 %) 15.4 H Plt Count (130 - 400 /CUMM) 523 H MPV (7.4 - 10.4 FL) 8.5 Gran % (42.2 - 75.2 %) 91.9 H Lymphocytes % (20.5 - 51.1 %) 3.0 L Monocytes % (1.7 - 9.3 %) 4.9 Eosinophils % (0 - 5 %) 0.1 Basophils % (0.0 - 2.0 %) 0.1 Absolute Granulocytes (1.4 - 6.5 /CUMM) 20.3 H Segmented Neutrophils (42.2 - 75.2 %) 89 H Band Neutrophils (0.0 - 5.0 %) 2 Absolute Lymphocytes (1.2 - 3.4 /CUMM) 0.7 L Lymphocytes (20.5 - 51.1 %) 2 L Monocytes (1.7 - 9.3 %) 7 Absolute Monocytes (0.10 - 0.60 /CUMM) 1.1 H Absolute Eosinophils (0.0 - 0.7 /CUMM) 0 Absolute Basophils (0.0 - 0.2 /CUMM) 0 Platelet Estimate (ADEQUATE) INCREASED Polychromasia 1+ Poikilocytosis 1+ Ovalocytes 1+ PUBS MCHC (33.0 - 37.0 G/DL) 33.4 Miscellaneous Phlebotomy Draw Site LEFT BRACHIAL Other Body Source Fld Total RBCs Counted (%) 100 Assessment/Plan Assessment/Plan 13 days postop Granger's procedure for perforation of the sigmoid colon Ostomy site is funtioning, there is mild abd distention today, abd is non tender , wound looks good. would consider repeat abd CT scan with IV and PO contrast if she continues to have fever but clinically the abdomen appears benign, cultures negative and drain output is less clowdy. continue right-sided pigtail catheter intra-abdominal drain. Continued care for primary team Continue IV antibiotics and Diflucan Continue tube feeds Continue G-tube When extubated, may start clears Staple removal likely end of this week, continue daily dressing changes and lower abd packing
[2016-09-08 08:00] VITALS: BP 110/62
--- NOTE | 2016-09-08 08:03 | RADIOLOGY REPORT ---
EXAMINATION: XR PORTABLE CHEST CLINICAL INFORMATION: ET tube positioning. Aspiration pneumonia. COMPARISON: Several prior chest x-rays, most recent of which is dated 09/07/2016. CT scan of the chest dated 09/07/2016. TECHNIQUE: Portable frontal AP semierect view of the chest was obtained. FINDINGS: Endotracheal tube tip approximately 4 cm above the evelio. Enteric tube courses into the abdomen with tip not included. Right subclavian PICC line in the mid SVC. Cardiac mediastinal silhouette within normal limits in size. Calcification of the aortic arch is seen. Persistent small bilateral pleural effusions are seen with associated bibasilar atelectatic changes, unchanged. No pneumothorax is noted. No pulmonary edema is seen. Right CP angle is not fully included on this exam. Bony structures are unremarkable. IMPRESSION: 1. Endotracheal tube tip approximately 4 cm above the evelio. 2. Right subclavian PICC line in mid SVC. 3. Enteric tube courses into the abdomen with tip not included. 4. No interval change in bilateral small pleural effusions and associated bibasilar atelectatic changes.
--- NOTE | 2016-09-08 08:30 | NUR ---
REC'D THE PT ORALLY INTUBATED AND MECHANICALLY VENTILATED PER MD ORDER. ESSENCE BS ARE CLEAR BUT DIMINSHED AT THE BASES. O2 SAT IS 95% ON AN FIO2 OF 40%. FOLLOWS COMMANDS BUT REQUIRES FREQUENT REMINDERS TO KEEP HER LEGS IN THE BED KEEPS DANGLING HER LLE OFF THE SIDE OF THE BED. SLOAN AND DENIES ANY PAIN. REMAINS ON THE FENTANYL GTT AT 30MCG/MIN OR 7.5ML/HR VIA THE PURPLE PORT OF THE ANASTACIA PICC. RED PORT OF THE PICC FLUSHED AND HAS POSITIVE BLOOD RETURN. PT IS IN A SR TO A ST WITH A HR IN THE HIGH 90'S TO LOW 100'S, NO ECTOPY NOTED. ABD IS SOFT BUT SLIGHTLY DISTENDED WITH NORMOACTIVE BOWEL SOUNDS. LUQ COLOSTOMY WITH PINK STOMA, DRAINING WATERY BROWN STOOL WITH BROWN CHUNKS NOTED. RUQ PERCUTANEOUS DRAIN IN PALCE DRAINING PURULENT FLUID. DRESSING TO THE BASE OF THE MIDLINE STAPLE LINE WAS CHANGED THIS AM BY HEIKE JOSE PA-C. TOBAR IN PLACE DRAINING CLEAR YELLOW URINE.
--- NOTE | 2016-09-08 10:00 | NUR ---
THE PT'S O2 SAT HAD DECREASED TO 87% AT 0900, SUCTIONED THE PT WITH NO INCREASE IN O2 SAT. DREDGE DECKHAND NOTIFIED AND THE DREDGE DECKHAND ALSO SUCTIONED THE PT WITH NO INCREASE IN O2 SAT. AT THAT TIME THE DREDGE DECKHAND INCREASED THE FIO2 TO 50%. THE O2 SAT IS NOW 94%.
--- NOTE | 2016-09-08 10:29 | PN- Infect Dx ---
Subjective Subjective: MAXIMUM TEMPERATURE 102. She offers no complaints. Objective Last 24 Hrs of Vital Signs/I&O Vital Signs Date Time Temp Pulse Resp B/P B/P Pulse O2 O2 Flow FiO2 Mean Ox Delivery Rate 09/08 0836 40 09/08 0524 40 09/08 0331 40 09/08 0106 40 09/08 0000 93 Ventilator 40% 09/07 2206 40 09/07 2200 111 23 106/63 09/07 2000 93 Ventilator 40% 09/07 1919 40 09/07 1715 40 09/07 1600 95 Ventilator 40% 09/07 1600 102.0 113 20 138/80 95 Ventilator 40% 09/07 1335 40 09/07 1230 40 09/07 1200 93 Ventilator 40% 09/07 1200 99.4 115 29 142/80 93 Ventilator 40% Intake & Output 09/08 1600 09/08 0800 06 0000 Intake Total 703 1315 Output Total 1420 1410 Balance -717 -95 Intake, IV 23 575 Intake, Tube 560 560 Feeding Intake, Tube 120 180 Irrigant Output, 50 Drainage Output, Other 20 Output, Stool 450 370 Output, Urine 950 990 Physical Exam Other Physical Findings: She is awake and alert, somewhat agitated, but in no acute distress on the ventilator Lungs are clear Heart regular rhythm with no murmur Abdomen is distended, nontender with positive bowel sounds; liquid stool in the colostomy; right upper quadrant drain in place with 55 mL output yesterday and 50 mL overnight of serous fluid Extremities 1+ edema both lower extremities; PICC in the right upper extremity with no inflammation at the site F[place] catheter remains in place Results Last 24 Hours of Lab Results: Laboratory Tests 09/08 09/07 0353 1630 Chemistry Sodium (137 - 145 mmol/L) 133 L Potassium (3.5 - 5.1 mmol/L) 3.7 Chloride (98 - 107 mmol/L) 103 Carbon Dioxide (22 - 30 mmol/L) 23 Anion Gap (5 - 16) 7 BUN (7 - 17 mg/dL) 9 Creatinine (0.5 - 1.0 mg/dL) 0.5 Estimated GFR (>60 ml/min) > 60 Glucose (65 - 99 mg/dL) 91 Calcium (8.4 - 10.2 mg/dL) 7.1 L Phosphorus (2.5 - 4.5 mg/dL) 3.6 Magnesium (1.6 - 2.3 mg/dL) 1.9 Total Bilirubin (0.2 - 1.3 mg/dL) 0.5 AST (14 - 36 U/L) 22 ALT (9 - 52 U/L) 35 Albumin (3.5 - 5.0 g/dL) 1.7 L Hematology CBC w Diff NO MAN DIFF REQ NO MAN DIFF REQ WBC (4.8 - 10.8 /CUMM) 21.6 H 24.0 H RBC (4.20 - 5.40 /CUMM) 2.62 L 2.92 L Hgb (12.0 - 16.0 G/DL) 8.1 L 8.7 L Hct (37 - 47 %) 24.2 L 26.8 L MCV (81.0 - 99.0 FL) 92.4 91.8 MCH (27.0 - 31.0 PG) 30.7 29.9 RDW (11.5 - 14.5 %) 14.7 H 15.0 H Plt Count (130 - 400 /CUMM) 500 H 529 H MPV (7.4 - 10.4 FL) 8.7 8.3 Gran % (42.2 - 75.2 %) 90.8 H 91.1 H Lymphocytes % (20.5 - 51.1 %) 4.1 L 4.0 L Monocytes % (1.7 - 9.3 %) 4.4 4.7 Eosinophils % (0 - 5 %) 0.2 0.1 Basophils % (0.0 - 2.0 %) 0.5 0.1 Absolute Granulocytes (1.4 - 6.5 /CUMM) 19.6 H 21.9 H Absolute Lymphocytes (1.2 - 3.4 /CUMM) 0.9 L 1.0 L Absolute Monocytes (0.10 - 0.60 /CUMM) 0.9 H 1.1 H Absolute Eosinophils (0.0 - 0.7 /CUMM) 0.1 0 Absolute Basophils (0.0 - 0.2 /CUMM) 0.1 0 PUBS MCHC (33.0 - 37.0 G/DL) 33.2 32.5 L Last 24 Hours of [place] Results: Blood cultures September 07 negative Urine culture September 07 negative Stool culture September 07 mixed elida Recent Imaging Studies: Chest x-ray September 08 persistent bilateral small pleural effusions with associated bibasilar atelectasis CT of the chest, abdomen and pelvis September 07 without contrast reveals moderate sized bilateral pleural effusions with bilateral compressive atelectasis; reaeration of the right middle lobe; loculated collection in Pfeiffer's pouch with another possible loculation along the right paracolic gutter; splenic infarcts Assessment/Plan Impression: Recurrent fever with white blood cell count decreasing, though still elevated, now 1 week status post drainage of purulent fluid from the right upper quadrant collection, with cultures of this collection and from the left lower quadrant collection negative. Possible sources of this fever include a persistent intra- abdominal infection, perhaps secondary to undrained fluid, with the repeat CT scan, reviewed with IR, not clearly demonstrating any new collections, or a pulmonary process, such as atelectasis or pneumonia, with her FiO2 requirements increased today, with Pseudomonas isolated from the sputum cultures, with no evidence of empyema on the right, though the left pleural effusion was not tapped, or another healthcare associated infection such as C. difficile, with the toxin test negative several days ago. She remains on Meropenem and Fluconazole for a polymicrobial peritonitis secondary to a perforated sigmoid colon now 13 days status post Granger's procedure, with Clostridium isolated from the initial blood culture. The recent CT scan did reveal wedge-shaped areas of hypoenhancement within the spleen, suggesting splenic infarcts, which are of unclear significance. Suggestion: 1. Repeat sputum culture 2. Repeat stool for C. difficile 3. Repeat CT of the abdomen and pelvis WITH oral and IV contrast if she re- spikes 4. Continue Meropenem and Fluconazole
[2016-09-08 16:00] VITALS: BP 94/58
--- NOTE | 2016-09-08 18:49 | NUR ---
PT FOUND AT 1750 TO HAVE PULLED OUT THE TOBAR. #18 UKRA[place] TOBAR PLACED. DRAINING CLEAR YELLOW URINE. DR MARA MONROY MADE AWARE. PT WA VERY RESTLESS, SLIDING DOWN IN THE BED AND THROWING HER LLE OFF THE EDGE OF THE BED REPEATEDLY. MEDICATED WITH ATIVAN 2MG IV AT 1830.
--- NOTE | 2016-09-08 22:52 | NUR ---
LIGHTLY SEDATED ON FENTANYL GTT.AROUSABLE TO VERBAL COMMANDS.FOLLOW COMMANDS.SLOAN WITH +CMS.RESTLESS AT TIMES AND ATIVAN GIVEN WITH FAIR EFFECT. +PP.GEN EDEMA. PICC INTACT.REMAIN INTUBATED WITH SATS >95%.TITRATED FIO2 TO 45% WITH NO OTHER VENT SETTINGS.VAUGHN CPAP TRIALS FAIRLY.NPO.TF CONT VIA OGT AT GOAL RATE.ORAL CARE DONE.TOBAR PATENT WITH GOOD UO.ABD INCISION CDI.RIGHT ABD PIGTAIL INTACT ADN COLOSTOMY PATENT.NO PRESSURE ULCERS.PLAN OF CARE REVIEWED
[2016-09-09] VITALS: BP 90/52
[2016-09-09 05:03] LABS: HEMATOCRIT 24.3 % (37-47); MEAN CORPUSCULAR HGB 30.7 PG (27.0-31.0); MEAN CORPUSCULAR HGB CONC 33.3 G/DL (33.0-37.0); MEAN CORPUSCULAR VOLUME 92.2 FL (81.0-99.0); MEAN PLATELET VOLUME 8.3 FL (7.4-10.4); PLATELET COUNT 551 /CUMM (130-400); RBC DISTRIBUTION WIDTH 15.1 % (11.5-14.5); RED BLOOD CELL CT 2.64 /CUMM (4.20-5.40); WHITE BLOOD CELL COUNT 20.1 /CUMM (4.8-10.8)
--- NOTE | 2016-09-09 05:48 | PN- General Surgery ---
See Addendum Subjective Subjective: Patient is awake and alert, denies pain but is agitated. Objective Vital Signs and I&Os Vital Signs Date Time Temp Pulse Resp B/P B/P Pulse O2 O2 Flow FiO2 Mean Ox Delivery Rate 09/09 0400 95 Ventilator 45% 06/ 0336 45 06/ 0056 45 06/ 0000 100.5 81 20 90/52 92 09/08 2331 95 Ventilator 45% 09/08 2223 105 18 112/65 09/08 2004 45 09/08 2000 92 Ventilator 45% 09/08 1645 45 09/08 1600 95 Ventilator 50% 09/08 1600 98.5 100 24 94/58 95 Ventilator 50% 09/08 1413 50 09/08 1216 50 09/08 1200 94 Ventilator 50% 09/08 0950 50 09/08 0836 40 09/08 0800 95 Ventilator 40% 09/08 0800 99.2 94 20 110/62 95 Ventilator 40% Intake & Output 09/09 0800 09/09 0000 09/08 1600 09/08 0800 09/08 0000 09/07 1600 Intake Total 833.5 0393 636 2935 1460 Output Total 1105 2460 1420 1410 1370 Balance -271.5 -1075 -717 -95 90 Intake, Blood 270 Product Intake, IV 93.5 720 23 575 507 Intake, Other 30 60 Intake, Tube 560 515 560 560 503 Feeding Intake, Tube 180 120 120 180 120 Irrigant Output, 50 50 55 Drainage Output, Other 30 20 Output, Stool 225 225 450 370 250 Output, Urine 850 2185 362 699 4132 Patient 151 lb 156 lb Weight Weight Bed scale Bed scale Measurement Method Physical Exam: General: Intubated, awake and alert, restless Cardiac: Regular rate and rhythm, s1s2 Pulm: coarse anterior Abdomen: Mild clip erythema, incision is healing well, distal aspect of incision that is left open with granulating tissue present and minimal amount of serous drainage. Small amount of Packing was changed. Stoma is pink and viable, small amount of stool and air noted in the bag. right sided abdominal pigtail drain with small amount of clear serous drainage 50 mL's of fluid documented drained overnight from the right side Assessment/Plan Assessment/Plan This is a 60 year old femal who is now14 days postop Granger's procedure for perforation of the sigmoid colon -Ostomy site is funtioning, there is mild abd distention today, abd is non tender, wound looks good although there is still some clip erythema. -Follow up temperatures, would consider repeat abd CT scan with IV and PO contrast if she continues to have fever but clinically the abdomen appears benign, cultures negative and drain output is less clowdy. -Continue right-sided pigtail catheter intra-abdominal drain. -Continued care for primary team -Continue IV antibiotics and Diflucan -Continue tube feeds, tolerating well -Continue G-tube -When extubated, may start clears -Staple removal likely within several days, continue daily dressing changes and lower abd packing
--- NOTE | 2016-09-09 06:22 | PN- Resident CRCU ---
[facility] 09/09/16 0621: Subjective HPI/CRCU Issues: Ms. Camacho was seen and examined this morning. She is comfortable in bed. Able to follow verbal commands and squeeze hands when prompted. Colostomy bag remains intact, stool draining. 24 Hour Events: Telemetry events: No Events Vital signs last 24 hours: T 98.5-100.5 HR 80-104 RR 20-25 BP 127-85/74-58 O2 sat 92-95% on AC 20 TV 450 FiO2 40%/50%/45% and 5 PEEP. Total intake last 24 hours: 2962 Total output last 24 hours: 4295 Objective Vital Signs & I&O Last 8 Hrs of Vitals and I&O: Vital signs last 24 hours: T 98.5-100.5 HR 80-104 RR 20-25 BP 127-85/74-58 O2 sat 92-95% on AC 20 TV 450 FiO2 40%/50%/45% and 5 PEEP. Exam General Appearance: well developed/nourished, awake, sedated Head: atraumatic Neck: normal inspection Respiratory: normal breath sounds Cardiovascular: regular rate/rhythm Gastrointestinal: normal bowel sounds, soft, Colostomy in place. Air Noted. Small amount of Stool. Right Abdominal Pigtail drain, serous fluid present. Extremities: normal inspection, no edema Cranial Nerves: normal hearing Skin: intact Weaning Parameters NIF: 41 Minute Volume: 12.9 Resp rate: 35 Vt: 320 Heart Rate: 100 Weaning Schedule Start Time: 1904 Minute Volume: 12.7 Resp Rate: 29 Vt: 430 Heart Rate: 99 End Time: 2004 Minute Volume: 13.5 Resp Rate: 34 Vt: 390 Heart Rate: 91 Current Medications: Current Medications Sig/Ry Start time Last Medication Dose Route Stop Time Status Admin Acetaminophen 1,000 MG Q6P PRN 08/27 0230 AC 09/06 N/A 1 UNIT IV 220 Acetylcysteine 2 ML BID 09/06 1000 AC 09/09 INH 0839 Albuterol Sulfate 3 ML EVERY 4 HRS/AWAKE 09/01 2000 AC 09/09 INH 0839 Albuterol Sulfate 3 ML Q4H PRN 08/27 1000 AC 08/28 INH 1309 Chlorhexidine 15 ML TID 08/29 999 AC 09/09 Gluconate PO 0915 Enoxaparin Sodium 40 MG DAILY 09/03 1000 AC 09/09 SC 0915 Fentanyl Citrate 1,000 MCG Q24H 09/08 2200 AC 09/08 Dextrose/Water 250 ML IV 2223 Fentanyl Citrate 1,000 MCG Q20H 09/07 1900 DC 09/07 Dextrose/Water 250 ML IV 09/08 2199 2200 Fluconazole 400 MG Q24 08/30 1045 AC 09/09 Sodium Chloride 200 ML IV 0934 Furosemide 20 MG ONCE ONE 09/09 0645 DC 09/09 IV 09/09 0646 0733 Lorazepam 2 MG Q3P PRN 09/07 0800 AC 09/09 IV 0936 Meropenem 1 GM IQ8 09/01 1600 AC 09/09 IV 0733 Pantoprazole Sodium 40 MG DAILY 08/27 1000 AC 09/09 IV 0915 Potassium Chloride 20 MEQ ONCE ONE 09/09 09 DC 09/09 IV 09/09 0901 1055 Propranolol HCl 10 MG AT BEDTIME 09/07 2200 AC 09/08 PO 2223 Sertraline HCl 50 MG DAILY 09/07 1301 AC 09/09 PO 0915 Trazodone HCl 200 MG AT BEDTIME 09/07 220 AC 09/08 PO 2217 Impression/Plan Impression/Problem List Impression: Ms. Camacho is a 60 year old female with PMH anxiety, depression, COPD , prior episode of severe clostridium difficile infection in 2016, tobacco abuse and gastritis who presented to the [facility] after one week of altered mental status, decreased oral intake and possible withdrawl symptoms as her clonazepam was being titrated off per doctor instructions. She was found to be hypotensive, febrile and altered while in the [facility] ED. In the ED: Vital signs showed Tmax 101.5, HR 116, RR 20, BP 93/62 and O2 saturation 90% on room air. Labs were significant for WBC 18.1 with 37 bands, H&H 13.7/41.6, Plt 623, Na 143 , K 3.6, Cl 107, HCO3 16, BUN/cre 28/1.8, Glu 98, Lactic acid 2.9, AST 62, ALT 42, CK 370, troponin 0.05, proBNP 94122, amylase 153, lipase <10, and UA with high protein, positive nitrite, high urobilinogen, 50 WBCs, moderate bacteria and large hgb. CXR showed no acute pulmonary process. Head CT was negative for acute pathology. Patient was admitted to the ICU and the following is the current management: 1. Severe sepsis secondary to peritonitis from perforated sigmoid colon with abscess formation * Patient febrile, + leukocytosis with bandemia, hypotensive and tachycardic on admission * Post-op day #13 from Harmann's procedure with Dr. Marcello MD; patient remains intubated off pressors, ostomy pink with + green liquid stool * Remove midline sutures in next few days * Patient s/p IR guided drainage on 09/02/16 of RUQ and LLQ fluid with drains in place * RUQ continues to drain, showed moderate WBC, few gram + cocci but no significant growth after 3 days * LLQ drain removed * Patient had CT chest, abdomen, pelvis last night for Tmax 102, shows persistent effusions, pockets of ascitic fluid in Morisons pouch and right pericolic gutter and diffuse anasarca * LRC shows pseudomonas resistant to zosyn; continue IV meropenem (day #9) and continue IV fluconazole to 400 g IV Q24 hours (day #10) * Persistent leukocytosis noted WBC:20.1 , repeat sputum culture. * Stool for CDiff Pending. * Repeat CT abdomen/pelvis WITH ORAL AND IV contrast if patient spikes another fever. Last temperature: 100.5 * Continue tube feeds * Surgery follow up appreciated with Dr. Marcello MD 2. Metabolic encephalopathy, IMPROVING * On admission, likely secondary to severe sepsis from sigmoid perforation/ peritonitis * CT head negative for acute intracranial pathology * Patient alert, oriented and appropriate; home psych meds restarted including trazodone, propranolol and sertraline daily, continue * Ativan PRN anxiety 3. Acute hypoxemic respiratory failure * Patient initially placed on non-rebreather but was transitioned to high flow nasal cannula/ BiPAP due to tachypnea/apparent respiratory distress * Patient tolerated BiPAP well but was intubated for Ho's procedure; FiO2 requirements somewhat increased to day from 40% to 50% so 20 IV lasix given with noted improved output * Trial for extubation once FiO2 40% or less * Aspiration precautions * Noted bilateral pleural effusions on CT chest, patient s/p thoracentesis on * Doppler BL LE to ruled out DVT 4. SIERRA, IMPROVED * Likely prerenal in the setting of severe sepsis; patient s/p IVF with improvement noted * Monitor renal function and electrolytes with ICU bundle * Monitor urine output, strict Is/Os 5. Sinus tachycardia with T wave changes, IMPROVED * Continuous telemetry monitoring * Troponins negative x 3 * Echo showed normal global LV function without wall motion abnormalities and normal pulm artery systolic pressure * Monitor vital signs closely 6. Thrombocytopenia, RESOLVED * Plt this AM increased to 551 (623 on admission) * Likely 2/2 coagulopathly from sepsis * 4Ts score placed patient at low risk for HIT (<5%) * Resumed SC lovenox on 09/02 7. Acute blood loss anemia * Patient given 3 U PRBC total since admission * H&H stable this AM: 8.05/03.3 * Follow up CBC daily, monitor for bleeding FULL CODE Diet: Tube feeds DVTP: ALPS + SC lovenox Pain: Fentanyl drip Problem List: 1. Status post Ho's procedure 2. Diverticulosis of colon 3. Lactic acidosis 4. Malnutrition 5. Hypotension 6. Perforated viscus Pain Ratin Tomorrow's Labs & Rationales: CBC ICU bundle Plan DVT/Prophylaxis: pharmacological ABELARDO CARIAS MD 09/09/16 0915: Attending MD Review Statement Attending Sign Off Attending Cosign Statement: I have: examined this patient, reviewed avalbl EMR data, personally reviewd images, discussd w/resident/PA/MARKETING STRATEGY LEAD, discussed mgmt plan w/kavya, discussed mgmt plan w/CM, discussed mgmt plan w/pt, agreed w/resident/PA/MARKETING STRATEGY LEAD, amended to note. Other Findings: Abelardo Diamond M.D. have examined this patient, reviewed available EMR data, personally reviewed images, discussed with resident/PA/MARKETING STRATEGY LEAD, discussed management plan with housestaff and nursing staff, discussed managment plan all of healthcare providers, discussed management plan with patient and/or family, agreed with resident/PA/MARKETING STRATEGY LEAD. The past history and parts of the chart have been autopopulated. Impression 60 year old woman * Hypoxemic respiratory failure slowly improving * Sepsis with leukocytosis secondary to pericolic abscess s/p drainage and sigmoid colectomy with end colostomy, now s/p drainage catheter placement by IR for fluid collections in right upper and left lower abdomen * abdominal fluid and pleural effusions Plan Respiratory -TRC/Nebs, aspiration precautions -CPAP trials - has not been able to be liberated given tachypnea -if within the next few days remains intubated, will plan for trach ID -continue abx -ID follow up -on meropenem and fluconazole CVS -monitor hemodynamics Heme -monitor cbc, coags Metabolic -monitor electrolytes, ins/outs, creatinine Alimentary -f/u surgery -nutrition input Neuro -anxiolysis, psych follow up when extubated DVT prophylaxis at all times - lovenox TTS 35 min
--- NOTE | 2016-09-09 07:43 | RADIOLOGY REPORT ---
EXAMINATION: XR PORTABLE CHEST CLINICAL INFORMATION: Endotracheal tube placement. Resultant diagnosis of aspiration pneumonia. COMPARISON: Chest x-ray dated 09/08/2016. TECHNIQUE: Portable frontal view of the chest was obtained. FINDINGS: Endotracheal tube tip approximately 5.5 cm above the evelio. Enteric tube courses into the abdomen with tip not included. Right subclavian PICC line tip is in the mid SVC. The cardiac mediastinal silhouette is normal. Calcification of the aortic arch is seen. Bilateral small pleural effusions are again seen with associated bibasilar opacities , unchanged. No pneumothorax. Bony structures unremarkable. IMPRESSION: 1. Endotracheal tube tip 5.5 cm above the evelio. 2. Enteric tube tip not visualized but extends into the abdomen. 3. Right subclavian PICC line tip in mid SVC. 4. Unchanged appearance of the chest with persistent small bilateral effusions and associated bibasilar opacities, likely representing atelectasis.
[2016-09-09 07:53] VITALS: BP 124/70
--- NOTE | 2016-09-09 10:31 | PN- General Surgery ---
Surgical Brief Attending Note Brief Attending Note: CT from 09/07 reviewed. There is no intraabdominal collection that woul warrant another drain. the catheter in RUQ appears to be in good position and is draining an improved perihepatic collection.
--- NOTE | 2016-09-09 10:56 | PN- Infect Dx ---
Subjective Subjective: MAXIMUM TEMPERATURE 100.5. She offers no complaints. Objective Last 24 Hrs of Vital Signs/I&O Vital Signs Date Time Temp Pulse Resp B/P B/P Pulse O2 O2 Flow FiO2 Mean Ox Delivery Rate 09/09 1007 40 / 0904 45 06/ 0753 93 Ventilator 45% / 0753 98.0 94 20 124/70 93 Ventilator 45% 06/ 0617 45 06/ 0400 95 Ventilator 45% / 0336 45 06/02 0056 45 06/02 0000 100.5 81 20 90/52 92 06/01 2331 95 Ventilator 45% 06/ 2223 105 18 112/65 / 2005 45 / 2000 92 Ventilator 45% 09/08 1645 45 / 1600 95 Ventilator 50% 06/ 1600 98.5 100 24 94/58 95 Ventilator 50% 06/ 1413 50 06/01 1216 50 06/ 1200 94 Ventilator 50% Intake & Output / 1600 06/02 0800 06/ 0000 Intake Total 743 833.5 Output Total 730 1105 Balance 13 -271.5 Intake, IV 63 93.5 Intake, Tube 560 560 Feeding Intake, Tube 120 180 Irrigant Output, Other 30 30 Output, Stool 150 225 Output, Urine 550 850 Physical Exam Other Physical Findings: She appears comfortable, though somewhat restless, on the ventilator Lungs are clear Heart regular rhythm with a 1/6 systolic ejection murmur Abdomen is soft, mild erythema around the incision, with the inferior aspect of the incision opened/packed; liquid stool in the colostomy; right upper quadrant drain remains in place with seropurulent fluid, with 50 mL output yesterday Extremities 1+ edema both lower extremities, left greater than right; PICC in the right upper extremity with no inflammation at the site [place] catheter remains in place Results Last 24 Hours of Lab Results: Laboratory Tests 09/09 0415 Chemistry Sodium (137 - 145 mmol/L) 136 L Potassium (3.5 - 5.1 mmol/L) 3.7 Chloride (98 - 107 mmol/L) 103 Carbon Dioxide (22 - 30 mmol/L) 25 Anion Gap (5 - 16) 8 BUN (7 - 17 mg/dL) 11 Creatinine (0.5 - 1.0 mg/dL) 0.5 Estimated GFR (>60 ml/min) > 60 Glucose (65 - 99 mg/dL) 93 Calcium (8.4 - 10.2 mg/dL) 7.5 L Phosphorus (2.5 - 4.5 mg/dL) 3.7 Magnesium (1.6 - 2.3 mg/dL) 1.9 Total Bilirubin (0.2 - 1.3 mg/dL) 0.4 AST (14 - 36 U/L) 24 ALT (9 - 52 U/L) 43 Albumin (3.5 - 5.0 g/dL) 1.9 L Hematology CBC w Diff MAN DIFF ORDERED WBC (4.8 - 10.8 /CUMM) 20.1 H RBC (4.20 - 5.40 /CUMM) 2.64 L Hgb (12.0 - 16.0 G/DL) 8.1 L Hct (37 - 47 %) 24.3 L MCV (81.0 - 99.0 FL) 92.2 MCH (27.0 - 31.0 PG) 30.7 RDW (11.5 - 14.5 %) 15.1 H Plt Count (130 - 400 /CUMM) 551 H MPV (7.4 - 10.4 FL) 8.3 Segmented Neutrophils (42.2 - 75.2 %) 76 H Band Neutrophils (0.0 - 5.0 %) 1 Lymphocytes (20.5 - 51.1 %) 8 L Monocytes (1.7 - 9.3 %) 14 H Eosinophils (0 - 5.0 %) 1 Platelet Estimate (ADEQUATE) INCREASED Polychromasia 1+ Basophilic Stippling SLIGHT Ovalocytes FEW Stomatocytes FEW PUBS MCHC (33.0 - 37.0 G/DL) 33.3 Other Body Source Fld Total RBCs Counted (%) 100 Last 24 Hours of [place] Results: Blood cultures September 07 negative Urine culture September 07 negative Stool C. difficile September 08 pending Recent Imaging Studies: Chest x-ray September 09, personally reviewed, no change with persistent small bilateral pleural effusions and associated bibasilar opacities Assessment/Plan Impression: Recurrent fever though white blood cell count continues to decrease slowly now 8 days status post drainage of purulent fluid from the right upper quadrant collection, with cultures of this collection and from the left lower quadrant collection negative. Possible sources of this fever include a persistent intra- abdominal infection, perhaps secondary to undrained fluid, with the repeat CT scan, without contrast, reviewed with IR, not clearly demonstrating any new collections, or a pulmonary process, such as atelectasis or pneumonia, with Pseudomonas isolated from the sputum cultures, or another healthcare associated infection such as C. difficile, with the toxin test negative several days ago. She remains on Meropenem and Fluconazole for a polymicrobial peritonitis secondary to a perforated sigmoid colon now 2 weeks status post Granger's procedure, with Clostridium isolated from the initial blood culture. The recent CT scan did reveal wedge-shaped areas of hypoenhancement within the spleen, suggesting splenic infarcts, which are of unclear significance. Suggestion: 1. Repeat sputum culture 2. Follow-up stool for C. difficile 3. Repeat CT of the abdomen and pelvis WITH oral and IV contrast if she re- spikes 4. Continue Meropenem and Fluconazole
[2016-09-09 16:00] VITALS: BP 124/80
--- NOTE | 2016-09-09 19:53 | NUR ---
PT IS AWAKE MOST OF THE DAY, SHE HAS BEEN PLACED IN THE CHAIR POSITION IN THE ICU BED TWICE AND HAS TOLERATED IT WELL. SHE DID NOT TOLERATE A WEAN TRIAL THIS MORNING. HER TUBE FEED IS AT GOAL. HER BOWEL SOUNDS ARE HYPERCTIVE AND THERE IS LARGE AMOUNTS OF FLATUS PLUS SEMILIQUID BROWN STOOL FROM THE COLOSTOMY.
--- NOTE | 2016-09-09 22:54 | NUR ---
drowsy but arousable.follow commands.c/o gen discomfort and fentanyl gtt cont via picc site. remain ventilated with sats @88%.attempted cpap trials but became restless and tachypneic in 40's rate.adjusted fio2 to 45 % due to low sats 84-85%..restless at times and safety precaution cont.see icu documentation for further details.
[2016-09-10] VITALS: BP 82/50
--- NOTE | 2016-09-10 01:49 | Event Note ---
Event Note Event Note: Pt had BP reading of 60's and 50's systolic. Gave 500cc bolus and BP went to 86 systolic with MAP increasing to 60. Will give another 500cc and monitor
--- NOTE | 2016-09-10 02:08 | NUR ---
ON FIRST ASSESSMENT AT 0000 MANUAL BP=82/50 AFTER PLACING FENTANYL DRIP ON HOLD AND HOLDING TUBE FEEDING IN ORDER TO LOWER HEAD OF BED. BP ON VITAL SIGN ROUNDS WAS 70/40.URINE OUTPUT FOR LAST 2 HOURS WAS 40 ML.AT 0030 BP=88/60 HOB INCREASED AND TUBE FEED RESTARTED.FENTANYL CONTINUED TO BE ON HOLD. AT 0100 AUTO BP=56/34. CONFIRMED TO BE 60 SYSTOLIC BY MANUAL. 500 ML BOLUS STARTED. AT 0130 BP 84/62 AUTO,CONFIRMED TO BE 90 SYSTOLIC MANUAL. 2ND 500 ML OF NS STARTED AT 125/HR.BP AT 9050=395/58.PATIENT WILL OPN EYES,MOVE ALL EXTREMITIES.ETT TO VENTILATOR AT 45%, SUCTIONED OF THIN WHITE SECRETIONS. SAT=91%.OGT TO TUBE FEED AT GOAL OF 70 ML/HR. 40 CC RESIDUAL OBTAINED. COLOSTOMY DRAINING LIGHT BROWN LIQUID,STOMA PINK.PIGTAIL DRAIN R SIDE OF ABDOMEN IRRIGATED WITH 10 ML OF NS.DRAINING SEROUS DRAINAGE.
--- NOTE | 2016-09-10 06:00 | NUR ---
PATIENT HAD PULLED OUT TOBAR CATHETER. REINSERTED.
[2016-09-10 06:08] LABS: ABSOLUTE BASOPHIL COUNT 0.1 /CUMM (0.0-0.2); ABSOLUTE EOSINOPHIL COUNT 0 /CUMM (0.0-0.7); ABSOLUTE GRANULOCYTE CT 15.1 /CUMM (1.4-6.5); ABSOLUTE LYMPH COUNT 1.4 /CUMM (1.2-3.4); ABSOLUTE MONOCYTE COUNT 1.3 /CUMM (0.10-0.60); BASOPHIL % 0.4 % (0.0-2.0); EOSINOPHIL % 0.2 % (0-5); HEMATOCRIT 23.4 % (37-47); MEAN CORPUSCULAR HGB 30.4 PG (27.0-31.0); MEAN CORPUSCULAR HGB CONC 33.2 G/DL (33.0-37.0); MEAN CORPUSCULAR VOLUME 91.6 FL (81.0-99.0); MEAN PLATELET VOLUME 8.2 FL (7.4-10.4); RBC DISTRIBUTION WIDTH 15.3 % (11.5-14.5); RED BLOOD CELL CT 2.56 /CUMM (4.20-5.40); WHITE BLOOD CELL COUNT 17.9 /CUMM (4.8-10.8)
[2016-09-10 06:11] LABS: PT 13.6 SEC (9.4-12.5); PTT 27 SEC (25-37)
[2016-09-10 06:38] LABS: GRANULOCYTE % 84.7 % (42.2-75.2); PLATELET COUNT 595 /CUMM (130-400)
[2016-09-10 08:00] VITALS: BP 92/50
--- NOTE | 2016-09-10 08:50 | PN- Resident CRCU ---
Subjective HPI/CRCU Issues: Overnight patient was hypotensive with SBP in the 50-60s. Fentanyl drip was placed on hold. 500 ml bolus of NS x2 was given with improvement of her blood pressure. Tmax was 100.0. She has been tolerating tube feeds. She had a negative fluid balance of 500 ml. Patient was seen and examined this morning. She is awake and follows commands. She offers no complaints. She remains intubated and on mechanical ventilation, currently day #16 with the following vent settings: CMV mode, VT 500, RR 20, PEEP 5 and FiO2 45%. She is sedated on Fentanyl drip. Objective Vital Signs & I&O Last 8 Hrs of Vitals and I&O: Vital Signs Date Time Temp Pulse Resp B/P B/P Pulse O2 O2 Flow FiO2 Mean Ox Delivery Rate / 0845 45 / 0624 45 06/ 0400 91 Ventilator 45% / 0339 45 06/ 0128 45 06/ 0000 91 Ventilator 45% 06/03 0000 99.2 84 20 82/50 91 Ventilator 45% 06/02 2246 96 20 103/55 06/02 2219 45 06/02 2000 92 Ventilator 40% 06/02 1921 40 06/02 1600 88 Ventilator 40% 06/02 1600 100.0 100 26 124/80 88 Ventilator 40% 06/02 1555 40 06/02 1303 40 06/02 1200 89 Ventilator 40% 06/02 1007 40 Exam General Appearance: well developed/nourished, no apparent distress, awake, sedated, intubated Head: atraumatic, normal appearance Ears, Nose, Throat: moist mucus membranes Neck: normal inspection Respiratory: lungs clear Cardiovascular: regular rate/rhythm Gastrointestinal: soft, stoma pink, colostomy bag with liquid stool, gauze dressing on midline incision, pigtail drain in place at RUQ with serous drainage Extremities: bilateral lower extremities with trace pitting edema, PICC in place on right upper extremity Skin: intact, normal color, warm/dry Current Medications: Current Medications Sig/Ry Start time Last Medication Dose Route Stop Time Status Admin Acetaminophen 1,000 MG Q6P PRN 08/27 0230 AC 09/06 N/A 1 UNIT IV 220 Acetylcysteine 2 ML BID 09/06 999 AC 09/10 INH 0848 Albuterol Sulfate 3 ML EVERY 4 HRS/AWAKE 09/02 1999 AC 09/10 INH 0848 Albuterol Sulfate 3 ML Q4H PRN 08/27 1000 AC 08/28 INH 1309 Chlorhexidine 15 ML TID 08/29 1000 AC 09/10 Gluconate PO 0922 Enoxaparin Sodium 40 MG DAILY 09/03 1000 AC 09/10 SC 0922 Fentanyl Citrate 1,000 MCG Q24H 09/08 2200 AC 09/10 Dextrose/Water 250 ML IV 0610 Fluconazole 400 MG Q24 08/30 1045 AC 09/10 Sodium Chloride 200 ML IV 0941 Lorazepam 2 MG Q3P PRN 09/07 0800 AC 09/10 IV 0923 Magnesium Oxide 400 MG ONE ONE 09/10 0730 DC 09/10 PO 09/10 0731 0922 Meropenem 1 GM IQ8 09/01 1600 AC 09/10 IV 0815 Pantoprazole Sodium 40 MG DAILY 08/27 1000 AC 09/10 IV 0922 Potassium Chloride 40 MEQ ONCE ONE 09/10 0730 DC 09/10 PO 09/10 0731 0922 Propranolol HCl 10 MG AT BEDTIME 09/07 2200 AC 09/09 PO 2246 Sertraline HCl 50 MG DAILY 09/07 1301 AC 09/10 PO 0922 Sodium Chloride 1,000 ML BOLUS ONE 09/10 0830 DC 09/10 IV 09/10 0929 0830 Sodium Chloride 500 ML .Q4H 09/10 0145 DC 09/10 IV 09/10 0544 0200 Sodium Chloride 500 ML BOLUS ONE 09/10 0115 DC 09/10 IV 09/10 0214 0115 Trazodone HCl 200 MG AT BEDTIME 09/07 220 AC 09/09 PO 2247 Results Results: Laboratory Tests 09/10 09/10 0500 0250 Chemistry Sodium (137 - 145 mmol/L) 137 Potassium (3.5 - 5.1 mmol/L) 3.8 Chloride (98 - 107 mmol/L) 103 Carbon Dioxide (22 - 30 mmol/L) 25 Anion Gap (5 - 16) 9 BUN (7 - 17 mg/dL) 12 Creatinine (0.5 - 1.0 mg/dL) 0.5 Estimated GFR (>60 ml/min) > 60 Glucose (65 - 99 mg/dL) 75 Lactic Acid (0.7 - 2.1 mmol/L) 1.7 Calcium (8.4 - 10.2 mg/dL) 7.3 L Phosphorus (2.5 - 4.5 mg/dL) 3.6 Magnesium (1.6 - 2.3 mg/dL) 1.9 Total Bilirubin (0.2 - 1.3 mg/dL) 0.5 AST (14 - 36 U/L) 25 ALT (9 - 52 U/L) 34 Albumin (3.5 - 5.0 g/dL) 1.9 L Coagulation PT (9.4 - 12.5 SEC) 13.6 H INR (0.90 - 1.19) 1.30 H APTT (25 - 37 SEC) 27 Hematology CBC w Diff NO MAN DIFF REQ WBC (4.8 - 10.8 /CUMM) 17.9 H RBC (4.20 - 5.40 /CUMM) 2.56 L Hgb (12.0 - 16.0 G/DL) 7.8 L Hct (37 - 47 %) 23.4 L MCV (81.0 - 99.0 FL) 91.6 MCH (27.0 - 31.0 PG) 30.4 RDW (11.5 - 14.5 %) 15.3 H Plt Count (130 - 400 /CUMM) 595 H MPV (7.4 - 10.4 FL) 8.2 Gran % (42.2 - 75.2 %) 84.7 H Lymphocytes % (20.5 - 51.1 %) 7.6 L Monocytes % (1.7 - 9.3 %) 7.1 Eosinophils % (0 - 5 %) 0.2 Basophils % (0.0 - 2.0 %) 0.4 Absolute Granulocytes (1.4 - 6.5 /CUMM) 15.1 H Absolute Lymphocytes (1.2 - 3.4 /CUMM) 1.4 Absolute Monocytes (0.10 - 0.60 /CUMM) 1.3 H Absolute Eosinophils (0.0 - 0.7 /CUMM) 0 Absolute Basophils (0.0 - 0.2 /CUMM) 0.1 PUBS MCHC (33.0 - 37.0 G/DL) 33.2 EKG Findings: Stable appearance of the chest with small bilateral pleural effusions and bibasilar parenchymal disease. Support tubes in place. Endotracheal tube tip approximately 3 cm above the evelio. Impression/Plan Impression/Problem List Impression: Ms. Camacho is a 60 year old female with PMH anxiety, depression, COPD , prior episode of severe clostridium difficile infection in 2016, tobacco abuse and gastritis who presented to the [place] ED after one week of altered mental status, decreased oral intake and possible withdrawl symptoms as her clonazepam was being titrated off per doctor instructions. She was found to be hypotensive, febrile and altered while in the [place] ED. In the ED: Vital signs showed Tmax 101.5, HR 116, RR 20, BP 93/62 and O2 saturation 90% on room air. Labs were significant for WBC 18.1 with 37 bands, H&H 13.7/41.6, Plt 623, Na 143 , K 3.6, Cl 107, HCO3 16, BUN/cre 28/1.8, Glu 98, Lactic acid 2.9, AST 62, ALT 42, CK 370, troponin 0.05, proBNP 06080, amylase 153, lipase <10, and UA with high protein, positive nitrite, high urobilinogen, 50 WBCs, moderate bacteria and large hgb. CXR showed no acute pulmonary process. Head CT was negative for acute pathology. Patient was admitted to the ICU and the following is the current management: 1. Severe sepsis secondary to peritonitis from perforated sigmoid colon with abscess formation * Patient febrile, + leukocytosis with bandemia, hypotensive and tachycardic on admission * Post-op day #15 from Harmann's procedure with Dr. Marcello MD; patient remains intubated off pressors, ostomy pink with + light brown liquid stool * Remove midline sutures in next few days * Patient s/p IR guided drainage on 09/02/16 of RUQ and LLQ fluid with drains in place * RUQ continues to drain, showed moderate WBC, few gram + cocci but no significant growth after 3 days * LLQ drain removed * Patient had CT chest, abdomen, pelvis for Tmax 102 on 09/07, shows persistent effusions, pockets of ascitic fluid in Morisons pouch and right pericolic gutter and diffuse anasarca * LRC shows pseudomonas resistant to zosyn; continue IV meropenem (day #10) and continue IV fluconazole to 400 g IV Q24 hours (day #12) * C. diff (/2) negative. Repeat sputum Cx (2) pending. * Remains afebrile with improving leukocytosis, WBC count 17.9 today. * Episode of hypotension overnight which improved IVF hydration. * Administer IVF as needed to maintain MAP around 65. * Repeat CT abdomen/pelvis WITH ORAL AND IV contrast if patient spikes another fever. * Continue tube feeds * Surgery follow up appreciated with Dr. Marcello MD 2. Metabolic encephalopathy, IMPROVING * On admission, likely secondary to severe sepsis from sigmoid perforation/ peritonitis * CT head negative for acute intracranial pathology * Patient alert, oriented and appropriate; home psych meds restarted including trazodone, propranolol and sertraline daily * Ativan PRN anxiety 3. Acute hypoxemic respiratory failure: * On mechanical ventilation day #16 with the following vent settings: CMV mode, VT 500, RR 20, PEEP 5 and FiO2 45%. * Continue mechanical ventilation. Initiate pressure-support ventilation trials. * Patient initially placed on non-rebreather but was transitioned to high flow nasal cannula/ BiPAP due to tachypnea/apparent respiratory distress * Aspiration precautions * Noted bilateral pleural effusions on CT chest, patient s/p thoracentesis on * Doppler BL LE to ruled out DVT 4. SIERRA, IMPROVED * Likely prerenal in the setting of severe sepsis; patient s/p IVF with improvement noted * Monitor renal function and electrolytes with ICU bundle * Monitor urine output, strict Is/Os 5. Sinus tachycardia with T wave changes, IMPROVED * Continuous telemetry monitoring * Troponins negative x 3 * Echo showed normal global LV function without wall motion abnormalities and normal pulm artery systolic pressure * Monitor vital signs closely 6. Thrombocytopenia, RESOLVED * Plt this AM increased to 595 (623 on admission) * Likely 2/2 coagulopathly from sepsis * 4Ts score placed patient at low risk for HIT (<5%) * Resumed SC lovenox on 09/02 7. Acute blood loss anemia * Patient given 3 U PRBC total since admission * H&H stable this AM * Follow up CBC daily, monitor for bleeding Problem List: 1. Status post Ho's procedure 2. Diverticulosis of colon 3. Lactic acidosis 4. Hypotension 5. Malnutrition 6. Perforated viscus Pain Ratin Tomorrow's Labs & Rationales: CBC and ICU bundle (ICU patient) Plan DVT/Prophylaxis: mechanical, pharmacological Code Status: Full Code
--- NOTE | 2016-09-10 10:07 | PN- CRCU ---
Subjective HPI/Critical Care Issues: Doing better awake hypotensive Afebrile On and off has low blood pressure Mentating well On 45% FiO2 with O2 sat of 92-94 On a low dose fentanyl drip Tolerating tube feeds Patient was negative by 500 mL yesterday SIGNIFICANT DATA chest x-ray done yesterday showed bilateral effusions opacities ET tube is a little too high Blood work BUN/creatinine stable anion gap normal liver enzymes were unremarkable previous tap was mostly a transudate white count 17.9 which is slightly better hemoglobin 7.8 platelets 595 previous cultures of the sputum grew Pseudomonas Geronimo mold Objective Current Medications: Current Medications Sig/Ry Start time Last Medication Dose Route Stop Time Status Admin Acetaminophen 1,000 MG Q6P PRN 08/27 0230 AC 09/06 N/A 1 UNIT IV 220 Acetylcysteine 2 ML BID 09/06 1000 AC 09/10 INH 0848 Albuterol Sulfate 3 ML EVERY 4 HRS/AWAKE 09/01 2000 AC 09/10 INH 0848 Albuterol Sulfate 3 ML Q4H PRN 08/27 1000 AC 08/28 INH 1309 Chlorhexidine 15 ML TID 08/29 1000 AC 09/10 Gluconate PO 0922 Enoxaparin Sodium 40 MG DAILY 09/03 1000 AC 09/10 SC 0922 Fentanyl Citrate 1,000 MCG Q24H 09/08 2200 AC 09/10 Dextrose/Water 250 ML IV 0610 Fluconazole 400 MG Q24 08/30 1045 AC 09/10 Sodium Chloride 200 ML IV 0941 Lorazepam 2 MG Q3P PRN 09/07 0800 AC 09/10 IV 0923 Magnesium Oxide 400 MG ONE ONE 09/10 0730 DC 09/10 PO 09/10 0731 0922 Meropenem 1 GM IQ8 09/01 1600 AC 09/10 IV 0815 Pantoprazole Sodium 40 MG DAILY 08/27 1000 AC 09/10 IV 0922 Potassium Chloride 40 MEQ ONCE ONE 09/10 0730 DC 09/10 PO 09/10 0731 0922 Propranolol HCl 10 MG AT BEDTIME 09/07 2200 AC 09/09 PO 2246 Sertraline HCl 50 MG DAILY 09/07 1301 AC 09/10 PO 0922 Sodium Chloride 1,000 ML BOLUS ONE 09/10 0830 DC 09/10 IV 09/10 0929 0830 Sodium Chloride 500 ML .Q4H 09/10 0145 DC 09/10 IV 09/10 0544 0200 Sodium Chloride 500 ML BOLUS ONE 09/10 0115 DC 09/10 IV 09/10 0214 0115 Trazodone HCl 200 MG AT BEDTIME 09/07 2199 AC 09/09 PO 2247 Vital Signs & I&O Last 24 Hrs of Vitals and I&O: Vital Signs Date Time Temp Pulse Resp B/P B/P Pulse O2 O2 Flow FiO2 Mean Ox Delivery Rate 09/10 0845 45 09/10 0624 45 09/10 0400 91 Ventilator 45% 09/10 0339 45 09/10 0128 45 09/10 0000 91 Ventilator 45% 09/10 0000 99.2 84 20 82/50 91 Ventilator 45% 09/09 2246 96 20 103/55 09/09 2219 45 09/09 2000 92 Ventilator 40% 09/09 1921 40 09/09 1600 88 Ventilator 40% 09/09 1600 100.0 100 26 124/80 88 Ventilator 40% 09/09 1555 40 09/09 1303 40 09/09 1200 89 Ventilator 40% 09/09 1007 40 Intake & Output 09/10 1600 09/10 0800 09/10 0000 Intake Total 1739 800 Output Total 850 640 Balance 889 160 Intake, IV 1086 60 Intake, Tube 508 560 Feeding Intake, Tube 145 180 Irrigant Output, 50 Drainage Output, Other 30 Output, Stool 400 250 Output, Urine 400 360 Impression/Plan Impression/Plan Impression/Plan: Exam General Appearance: well developed/nourished, no apparent distress, mildly MILDLYsedated, intubated Head: atraumatic, normal appearance Ears, Nose, Throat: hearing grossly normal, moist mucus membranes Neck: normal inspection, supple Respiratory: Rhonchi bilateral lung rosenbaum but aeration improving Cardiovascular: regular rate/rhythm Gastrointestinal: Ostomy pink with good stool output, midline incision covered by dry clean gauze Extremities: Bilateral upper extremity pitting edema MILD picc in place Cranial Nerves: normal hearing, PERRL Skin: Normal color, clean and dry around midline incision Skin Temp/Moisture Exam: Warm/Dry IMPRESSION This is a lady with pericolic abscess status post drainage and sigmoid colectomy with end colostomy with status post drainage for fluid placement in the right upper quadrant and left lower abdomen with bilateral pleural fluid, ongoing fever now on meropenem and fluconazole. Issues include postop respiratory failure related to above-mentioned problems Ongoing infection intra-abdominally, with new onset fever with persistent leukocytosis despite drainage of purulent fluid from the right upper quadrant now on meropenem and fluconazole ID on board Pleural effusion bilaterally appears most likely related to a transudative effusion Right middle lobe atelectasis related to mucous plugging, with pseudomonas sputum Persistent leukocytosis Pseudomonas intra-abdominal sepsis and intra-abdominal fungal infection RECOMMENDATION Continue mechanical ventilator Start pressure-support ventilation trials today Keep MAP around 65 Watch urine outpu Keep potassium more than 4 magnesium more than 2 phosphate more than 3 Continue light sedation and antibiotics and tube feedings patient is critically ill total time spent 40 minutes
[2016-09-10 12:00] VITALS: BP 102/68
--- NOTE | 2016-09-10 14:09 | RADIOLOGY REPORT ---
EXAMINATION: XR PORTABLE CHEST CLINICAL INFORMATION: Confirm ET tube placement. COMPARISON: 09/09/2016 TECHNIQUE: Portable AP view of the chest was obtained. FINDINGS: There is again noted to be bibasilar parenchymal disease with haziness consistent with pleural effusions. No pneumothorax is noted. Heart normal size. No evidence of pulmonary edema. Endotracheal tube is seen with its tip approximately 3 cm above the evelio. Nasogastric tube is seen traversing to the stomach. Right upper extremity PICC line is seen with tip appearing in the mid superior vena cava. Right upper abdominal drainage catheter in place. IMPRESSION: Stable appearance of the chest with small bilateral pleural effusions and bibasilar parenchymal disease. Support tubes in place. Endotracheal tube tip approximately 3 cm above the evelio.
[2016-09-10 16:00] VITALS: BP 108/60
[2016-09-10 23:00] VITALS: BP 123/71
[2016-09-11 05:05] LABS: ABSOLUTE BASOPHIL COUNT 0 /CUMM (0.0-0.2); ABSOLUTE EOSINOPHIL COUNT 0 /CUMM (0.0-0.7); ABSOLUTE GRANULOCYTE CT 15.4 /CUMM (1.4-6.5); ABSOLUTE LYMPH COUNT 1.2 /CUMM (1.2-3.4); ABSOLUTE MONOCYTE COUNT 1.1 /CUMM (0.10-0.60); BASOPHIL % 0.1 % (0.0-2.0); EOSINOPHIL % 0.3 % (0-5); GRANULOCYTE % 86.2 % (42.2-75.2); HEMATOCRIT 24.1 % (37-47); MEAN CORPUSCULAR HGB 30.2 PG (27.0-31.0); MEAN CORPUSCULAR VOLUME 91.5 FL (81.0-99.0); MEAN PLATELET VOLUME 8.1 FL (7.4-10.4); PLATELET COUNT 655 /CUMM (130-400); RBC DISTRIBUTION WIDTH 15.7 % (11.5-14.5); RED BLOOD CELL CT 2.63 /CUMM (4.20-5.40)
[2016-09-11 05:53] LABS: WHITE BLOOD CELL COUNT 17.8 /CUMM (4.8-10.8)
[2016-09-11 07:00] VITALS: BP 149/73
--- NOTE | 2016-09-11 07:31 | NUR ---
PATIENT IS ALERT BUT INCOHERENT AND NOT FOLLOWING COMMANDS, PERRLA, MOVES ALL ECTREMITIES ALL TGHE TIMES, NO PAIN. VITALS SIGNS ARE STABLE, AFEBRILE. VENTED AT THE SAME SETTINGS AT AC 20/550/5/45%, SECRETION IS MINIAL LOOSE PALE YELLOWISH SECRETION, REQUIRES PRN SUCTION, ORAL SECRETION SCANT, NO SIGNS OF DISTRESS BUT SHE FAILED SBT LAST NIGTH. ABD IS FLAT, SOFT AND NON TENDER AND HAS GOOD BOWEL SOUNDS, ON OG TUBE FEEDING OF OSMOLITE 1 SOMMER AT 70 ML/HR WITH A FEE WATER FLUSH OF 60 ML Q 4, NO BM LAST NIGTH. ACCU CHECK Q 6. MIDLINE OPERRATIVE SITE IS DRY, STAPLE WIRES ARE INTACT, DRESSING IS INTACT WITH GOUZE AT THE LOWER TIP OF THE INCISION SITE, PERCUTANEOUS DRAIN REMAIN INTACT TO THE RIGHT SIDE OF THE ABDOMEN AND DRAINNING WELL WITH MINIMAL AMOUNT OF SEROUS OUTPUT INTO THE DRAINGAE BAG. COLOSTOMY BAG INTACT AT THE LEFT SIDE OF THE ABDOMEN WITH LIQUID YELLOW STOOL MODERATE AMOUNT DRAINING INTO THE BAG. HAS GOOD UIRNE OUTPUT VIA TOBAR CATHETER AT 30 TO 50 ML/HR SLIGHTLY CONCENTRATED IN COLOR. SKIN IS INTACT AND NO BROKEN SKIN EXCEPT FOR THE REDNESS BLANCHABLE AT THE COCCYX AREA.
[2016-09-11 08:00] VITALS: BP 130/70
--- NOTE | 2016-09-11 08:00 | NUR ---
REC'D THE PT ORALLY INTUBATED AND MECHANICALLY VENTILATED PER MD ORDER. PT IS VERY RESLTLESS, CONSTANTLY SLIDING LLE OFF THE SIDE OF THE BED AND A RESULT THE R FOOT HAS 2+ EDEMA WITH THE PULSE DIMINISHED SECONDARY TO THE EDEMA. PT IS CURRENTLY ON FENTANYL AT 12.5MCG/HR OR 3.1ML/HR WITH AN SAS OF 4. SLOAN AND REQUIRES FREQUENT REDIRECTION TO KEEP HER LLE IN THE BED. FOLL COMMANDS AT TIMES AND THEN CHOOSES TO DO WHAT SHE WISHES. ESSENCE WRIST RESTRAINTS IN PLACE NOTED TO ATTEMPT TO RECH FOR ETT. PT IS IN A NSR WITHOUT ECTOPY PER THE ONCOLOGY NURSE NAVIGATOR. ESSENCE BS ARE CLEAR BUT DIMINISHED AT THE BASES. O2 SAT IS 91-95% ON AN FIO2 OF 45%. ABD IS SOFT WITH NORMOACTIVE BOWEL SOUNDS. COLOSTOMY TO LUQ DRAINING LIQUID BROWN STOOL. OGT IN PLACE AT 60CM TO THE LIP WITH OSMOLITE GOING AT 70ML/HR, 10ML RESIDUAL NOTED. WATER FLUSHES OF 60ML Q4H. PERCUTANEOUS DRAIN TO THE RUQ DRAINING SM AMTS PURULENT MATERIAL. DRESSING TO THE BASE OF THE MIDLINE STAPLE LINE IS CLEAN, DRY AND INTACT. TOBAR IN PLACE DRAINING CLEAR YELLOW URINE.
--- NOTE | 2016-09-11 08:08 | PN- Resident CRCU ---
Subjective HPI/CRCU Issues: Ms. Camacho seen and examined at bedside this AM. She is able to follow commands and nods yes when asked if she had midline abdominal pain. She continues to move her legs frequently out of bed and occasionally pulls at the hope. She was afebrile overnight and is still on fluconazole and meropenem. We will continue trialing for liberation from the mechanical ventilator. 24 Hour Events: athletic monitor: No events. Vital signs last 24 hours: T 97.6-99.7, HR 84-96, RR 19-40, BP 76-147/42-74, O2 89-97% on AC 20 TV 550 45% FiO2 and 5 PEEP. Total intake last 24 hours: 3384 cc Total output last 24 hours: 2210 cc, 655 of which are stool via colostomy Objective Vital Signs & I&O Last 8 Hrs of Vitals and I&O: Intake & Output 09/11 1600 Intake Total Output Total Balance Patient 154 lb Weight Weight Bed scale Measurement Method T 97.6-99.7, HR 84-96, RR 19-40, BP 76-147/42-74, O2 89-97% on AC 20 TV 550 45% FiO2 and 5 PEEP. Exam General Appearance: well developed/nourished, no apparent distress, alert, awake , intubated Head: atraumatic, normal appearance Ears, Nose, Throat: hearing grossly normal, moist mucus membranes Neck: normal inspection, supple Respiratory: normal breath sounds, chest non-tender Cardiovascular: regular rate/rhythm Gastrointestinal: normal bowel sounds, soft, non-tender Extremities: pedal edema appreciated Cranial Nerves: normal hearing, PERRL Skin: normal color, warm/dry, Midline incision appropriately dressed with clean/ dry dressings; skin around colostomy without signs of infection Skin Temp/Moisture Exam: Warm/Dry Weaning Schedule Start Time: 1310 Minute Volume: 7.9 Resp Rate: 25 Vt: 388 Heart Rate: 86 End Time: 1350 Minute Volume: 8.8 Resp Rate: 37 Vt: 280 Heart Rate: 89 Nutrition Nutrition: tube feeding Current Medications: Current Medications Sig/Ry Start time Last Medication Dose Route Stop Time Status Admin Acetaminophen 1,000 MG Q6P PRN 08/27 0230 AC 09/06 N/A 1 UNIT IV 2206 Acetylcysteine 2 ML BID 09/06 1000 AC 09/11 INH 0817 Albuterol Sulfate 3 ML EVERY 4 HRS/AWAKE 09/01 2000 AC 09/11 INH 1139 Albuterol Sulfate 3 ML Q4H PRN 08/27 1000 AC 08/28 INH 1309 Chlorhexidine 15 ML TID 08/29 1000 AC 09/11 Gluconate PO 0939 Enoxaparin Sodium 40 MG DAILY 09/03 1000 AC 09/11 SC 0939 Fentanyl Citrate 1,000 MCG Q24H 09/11 0830 AC 09/11 Dextrose/Water 250 ML IV 0940 Fentanyl Citrate 1,000 MCG Q24H 09/08 2200 DC 09/10 Dextrose/Water 250 ML IV 09/11 0829 0610 Fluconazole 400 MG Q24 08/30 1045 AC 09/11 Sodium Chloride 200 ML IV 0939 Furosemide 20 MG ONCE ONE 09/11 1030 DC 09/11 IV 09/11 1031 1041 Lorazepam 2 MG Q3P PRN 09/07 0800 AC 09/11 IV 1050 Magnesium Oxide 400 MG DAILY 09/12 1000 AC PO Magnesium Oxide 400 MG ONE ONE 09/11 0830 DC 09/11 PO 09/11 0831 0938 Meropenem 1 GM IQ8 09/01 1600 AC 09/11 IV 0819 Morphine Sulfate 1 MG ONCE ONE 09/11 0930 DC 09/11 IV 09/11 0931 0938 Pantoprazole Sodium 40 MG DAILY 08/27 1000 AC 09/11 IV 0939 Potassium Chloride 20 MEQ DAILY 09/12 1000 AC PO Potassium Chloride 40 MEQ ONCE ONE 09/11 0830 DC 09/11 PO 09/11 0831 0938 Propranolol HCl 10 MG AT BEDTIME 09/07 2200 AC 09/10 PO 2212 Sertraline HCl 50 MG DAILY 09/07 1301 AC 09/11 PO 0938 Trazodone HCl 200 MG AT BEDTIME 09/07 2200 AC 09/10 PO 2212 Impression/Plan Impression/Problem List Impression: Ms. Camacho is a 60 year old female with PMH anxiety, depression, COPD , prior episode of severe clostridium difficile infection in 2016, tobacco abuse and gastritis who presented to the [place] ED after one week of altered mental status, decreased oral intake and possible withdrawl symptoms as her clonazepam was being titrated off per doctor instructions. She was found to be hypotensive, febrile and altered while in the [place] ED. In the ED: Vital signs showed Tmax 101.5, HR 116, RR 20, BP 93/62 and O2 saturation 90% on room air. Labs were significant for WBC 18.1 with 37 bands, H&H 13.7/41.6, Plt 623, Na 143 , K 3.6, Cl 107, HCO3 16, BUN/cre 28/1.8, Glu 98, Lactic acid 2.9, AST 62, ALT 42, CK 370, troponin 0.05, proBNP 31633, amylase 153, lipase <10, and UA with high protein, positive nitrite, high urobilinogen, 50 WBCs, moderate bacteria and large hgb. CXR showed no acute pulmonary process. Head CT was negative for acute pathology. Patient was admitted to the ICU and the following is the current management: 1. Severe sepsis secondary to peritonitis from perforated sigmoid colon with abscess formation * Patient febrile, + leukocytosis with bandemia, hypotensive and tachycardic on admission * Post-op day #16 from Harmann's procedure with Dr. Marcello MD; patient remains intubated off pressors, ostomy pink with + green liquid stool * Patient s/p IR guided drainage on 17 of RUQ and LLQ fluid with drains in place * RUQ continues to drain, showed moderate WBC, few gram + cocci but no significant growth after 3 days; drained 25 cc overnight and appears to be purulent * LLQ drain removed * LRC showed pseudomonas resistant to zosyn; continue IV meropenem (day #10) and continue IV fluconazole to 400 g IV Q24 hours (day #11) * Continue to trial with PSV and if does well will consider extubation; IV lasix 20 mg once today * Repeat CT abdomen/pelvis WITH ORAL AND IV contrast if patient spikes another fever * Continue tube feeds at goal rate * Surgery follow up appreciated with Dr. Marcello MD 2. Metabolic encephalopathy, IMPROVED * On admission, likely secondary to severe sepsis from sigmoid perforation/ peritonitis * CT head negative for acute intracranial pathology * Patient alert, oriented and appropriate; continue home psych meds including trazodone, propranolol and sertraline daily * Ativan PRN anxiety 3. Acute hypoxemic respiratory failure * Patient initially placed on non-rebreather but was transitioned to high flow nasal cannula/ BiPAP due to tachypnea/apparent respiratory distress * Patient tolerated BiPAP well but was intubated for Ho's procedure; FiO2 requirements somewhat increased to day from 40% to 50% so 20 IV lasix given with noted improved output * Trial for extubation once FiO2 40% or less * Continue mucomyst * Aspiration precautions * Noted bilateral pleural effusions on CT chest, patient s/p thoracentesis on * Doppler BL LE to ruled out DVT 4. SIERRA, IMPROVED * Likely prerenal in the setting of severe sepsis; patient s/p IVF with improvement noted * Monitor renal function and electrolytes with ICU bundle * Monitor urine output, strict Is/Os 5. Sinus tachycardia with T wave changes, IMPROVED * Continuous telemetry monitoring * Troponins negative x 3 * Echo showed normal global LV function without wall motion abnormalities and normal pulm artery systolic pressure * Monitor vital signs closely 6. Thrombocytopenia, RESOLVED * Plt this AM increased to 655 (623 on admission) * Initial thrombocytopenia likely 2/2 coagulopathly from sepsis * 4Ts score placed patient at low risk for HIT (<5%) * Resumed SC lovenox on 09/02 7. Acute blood loss anemia * Patient given 3 U PRBC total since admission * H&H stable this AM * Follow up CBC daily, monitor for bleeding FULL CODE Diet: Tube feeds DVTP: ALPS + SC lovenox Pain: Fentanyl drip Problem List: 1. Status post Ho's procedure 2. History of adenomatous polyp of colon 3. Diverticulosis of colon 4. Malnutrition 5. History of Clostridium difficile infection 6. Lactic acidosis 7. Hypotension 8. Perforated viscus Pain Ratin Pain Location: Midline incision Tomorrow's Labs & Rationales: CBC (persistent leukocytosis) ICU bundle (critically ill) Plan DVT/Prophylaxis: mechanical, pharmacological Code Status: Full Code
--- NOTE | 2016-09-11 08:25 | PN- Infect Dx ---
Subjective Subjective: Afebrile without complaints Objective Last 24 Hrs of Vital Signs/I&O Vital Signs Date Time Temp Pulse Resp B/P B/P Pulse O2 O2 Flow FiO2 Mean Ox Delivery Rate 09/11 0700 99.5 90 24 149/73 91 Ventilator 45% 06/04 0559 45 06/04 0400 92 Ventilator 45% 06/04 0316 45 06/04 0020 45 06/04 0000 90 Ventilator 40% 06/03 2300 99.7 92 27 123/71 95 Ventilator 40% 06/03 2228 45 06/03 2212 97.8 98 117/69 06/03 2000 94 Ventilator 40% 06/03 1945 45 06/03 1620 45 06/03 1600 92 Ventilator 45% 06/03 1600 99.6 90 20 108/60 92 Ventilator 45% 06/03 1420 45 06/03 1200 90 Ventilator 45% 06/03 1200 97.6 88 20 102/68 92 Ventilator 45% 06/03 1158 45 06/03 0845 45 Intake & Output / 1600 06/04 0800 06/04 0000 Intake Total 704.8 755 Output Total 935 650 Balance -230.2 105 Intake, IV 24.8 25 Intake, Other 560 560 Intake, Tube 120 170 Irrigant Output, Stool 130 325 Output, Urine 805 325 Physical Exam Other Physical Findings: She appears comfortable in no acute distress on the ventilator Lungs are clear Heart regular rhythm with no murmur Abdomen distended, nontender with positive bowel sounds; liquid stool in the colostomy; right upper quadrant drain with purulent fluid, with 75 mL output recorded yesterday Extremities trace edema left lower extremity; PICC in the right extremity with no inflammation at the site Fulton catheter remains in place Results Last 24 Hours of Lab Results: Laboratory Tests 09/110 Chemistry Sodium (137 - 145 mmol/L) 136 L Potassium (3.5 - 5.1 mmol/L) 3.7 Chloride (98 - 107 mmol/L) 104 Carbon Dioxide (22 - 30 mmol/L) 25 Anion Gap (5 - 16) 7 BUN (7 - 17 mg/dL) 11 Creatinine (0.5 - 1.0 mg/dL) 0.5 Estimated GFR (>60 ml/min) > 60 Glucose (65 - 99 mg/dL) 95 Calcium (8.4 - 10.2 mg/dL) 7.5 L Phosphorus (2.5 - 4.5 mg/dL) 3.6 Magnesium (1.6 - 2.3 mg/dL) 1.8 Total Bilirubin (0.2 - 1.3 mg/dL) 0.4 AST (14 - 36 U/L) 27 ALT (9 - 52 U/L) 31 Albumin (3.5 - 5.0 g/dL) 1.9 L Hematology CBC w Diff NO MAN DIFF REQ WBC (4.8 - 10.8 /CUMM) 17.8 H RBC (4.20 - 5.40 /CUMM) 2.63 L Hgb (12.0 - 16.0 G/DL) 7.9 L Hct (37 - 47 %) 24.1 L MCV (81.0 - 99.0 FL) 91.5 MCH (27.0 - 31.0 PG) 30.2 RDW (11.5 - 14.5 %) 15.7 H Plt Count (130 - 400 /CUMM) 655 H MPV (7.4 - 10.4 FL) 8.1 Gran % (42.2 - 75.2 %) 86.2 H Lymphocytes % (20.5 - 51.1 %) 7.0 L Monocytes % (1.7 - 9.3 %) 6.4 Eosinophils % (0 - 5 %) 0.3 Basophils % (0.0 - 2.0 %) 0.1 Absolute Granulocytes (1.4 - 6.5 /CUMM) 15.4 H Absolute Lymphocytes (1.2 - 3.4 /CUMM) 1.2 Absolute Monocytes (0.10 - 0.60 /CUMM) 1.1 H Absolute Eosinophils (0.0 - 0.7 /CUMM) 0 Absolute Basophils (0.0 - 0.2 /CUMM) 0 PUBS MCHC (33.0 - 37.0 G/DL) 33.0 Last 24 Hours of [place] Results: Urine culture September 10 pending Stool C. difficile September 08 negative Blood cultures September 07 remain negative Recent Imaging Studies: Chest x-ray September 11 stable with small bilateral pleural effusions and bibasilar densities unchanged Assessment/Plan Impression: Overall stable with no recent fevers and with white blood cell count continuing to decrease though it remains elevated now 10 days status post placement of a catheter for drainage of a purulent fluid collection from the right upper quadrant, now 16 days status post Granger's procedure for a perforated sigmoid colon, with purulent fluid still draining in the catheter. The recent CT scan did not clearly demonstrate any new collections, but it was without contrast. She remains on Meropenem and Fluconazole for a polymicrobial peritonitis, with Clostridium isolated from the initial blood culture, and for possible pneumonia, with Pseudomonas isolated from the sputum cultures. The recent CT scan also revealed wedge-shaped areas of hypoenhancement within the spleen, suggesting splenic infarcts, which are of unclear significance. Suggestion: 1. Would remove Fulton catheter if I's and O's are not critical 2. Continue Meropenem and Fluconazole
--- NOTE | 2016-09-11 08:25 | RADIOLOGY REPORT ---
EXAMINATION: XR PORTABLE CHEST CLINICAL INFORMATION: Confirm ET tube placement. COMPARISON: 09/10/2016. TECHNIQUE: Portable AP 90 degrees upright view of the chest was obtained. FINDINGS: ET tube tip terminates midway between the thoracic inlet and evelio, approximately 4.9 cm above evelio. Enteric tube extends below diaphragm, tip not visualized. The right arm PICC extends to the upper SVC. Right basal chest tube is identified. Bilateral lower lobe atelectasis/consolidation is identified with small residual pleural effusions. There is mild linear atelectasis also seen in the right upper lobe, increased from prior. Increased interstitial markings are unchanged. The heart is not enlarged. IMPRESSION: Persistent bilateral small pleural effusions and bibasilar atelectasis/consolidation. No pneumothorax. Slight increased linear atelectasis is seen in the right upper lobe medially.
--- NOTE | 2016-09-11 09:30 | PN- CRCU ---
Subjective HPI/Critical Care Issues: Doing a little better afebrile Stil has sig increase Awake Did do a trial and was not too comfortable Objective Current Medications: Current Medications Sig/Ry Start time Last Medication Dose Route Stop Time Status Admin Acetaminophen 1,000 MG Q6P PRN 08/27 0230 AC 09/06 N/A 1 UNIT IV 2206 Acetylcysteine 2 ML BID 09/06 1000 AC 09/11 INH 0817 Albuterol Sulfate 3 ML EVERY 4 HRS/AWAKE 09/01 2000 AC 09/11 INH 0817 Albuterol Sulfate 3 ML Q4H PRN 08/27 1000 AC 08/28 INH 1309 Chlorhexidine 15 ML TID 08/29 1000 AC 09/10 Gluconate PO 221 Enoxaparin Sodium 40 MG DAILY 09/03 1000 AC 09/10 SC 0922 Fentanyl Citrate 1,000 MCG Q24H 09/11 0830 AC Dextrose/Water 250 ML IV Fentanyl Citrate 1,000 MCG Q24H 09/08 2200 DC 09/10 Dextrose/Water 250 ML IV 09/11 0829 0610 Fluconazole 400 MG Q24 08/30 1045 AC 09/10 Sodium Chloride 200 ML IV 0941 Lorazepam 2 MG Q3P PRN 09/07 0800 AC 09/10 IV 1240 Magnesium Oxide 400 MG DAILY 09/12 1000 AC PO Magnesium Oxide 400 MG ONE ONE 09/12 0730 DC PO 09/11 0831 Meropenem 1 GM IQ8 09/01 1600 AC 09/11 IV 0819 Pantoprazole Sodium 40 MG DAILY 08/27 1000 AC 09/10 IV 0922 Potassium Chloride 20 MEQ DAILY 09/12 1000 AC PO Potassium Chloride 40 MEQ ONCE ONE 09/11 0830 DC PO 09/11 0831 Propranolol HCl 10 MG AT BEDTIME 09/07 220 AC 09/10 PO 2212 Sertraline HCl 50 MG DAILY 09/07 1301 AC 09/10 PO 0922 Sodium Chloride 1,000 ML BOLUS ONE 09/10 0830 DC 09/10 IV 09/10 0929 0830 Trazodone HCl 200 MG AT BEDTIME 09/07 2199 AC 09/10 PO 2212 Vital Signs & I&O Last 24 Hrs of Vitals and I&O: Vital Signs Date Time Temp Pulse Resp B/P B/P Pulse O2 O2 Flow FiO2 Mean Ox Delivery Rate 09/12 823 45 09/12 799 95 Ventilator 45% 06/04 0800 98.1 94 25 130/70 95 Ventilator 45% 06/04 0700 99.5 90 24 149/73 91 Ventilator 45% 06/04 0559 45 06/04 0400 92 Ventilator 45% 06/04 0316 45 06/04 0020 45 06/04 0000 90 Ventilator 40% 06/03 2300 99.7 92 27 123/71 95 Ventilator 40% 06/03 2228 45 06/03 2212 97.8 98 117/69 06/03 2000 94 Ventilator 40% 06/03 1945 45 06/03 1620 45 06/03 1600 92 Ventilator 45% 06/03 1600 99.6 90 20 108/60 92 Ventilator 45% 06/03 1420 45 06/03 1200 90 Ventilator 45% 06/03 1200 97.6 88 20 102/68 92 Ventilator 45% 06/03 1158 45 Intake & Output 06/04 1600 06/04 0800 06/04 0000 Intake Total 704.8 755 Output Total 935 650 Balance -230.2 105 Intake, IV 24.8 25 Intake, Other 560 560 Intake, Tube 120 170 Irrigant Output, Stool 130 325 Output, Urine 805 325 Patient 154 lb Weight Weight Bed scale Measurement Method Impression/Plan Impression/Plan Impression/Plan: Exam General Appearance: well developed/nourished, no apparent distress, mildly MILDLYsedated, intubated Head: atraumatic, normal appearance Ears, Nose, Throat: hearing grossly normal, moist mucus membranes Neck: normal inspection, supple Respiratory: Rhonchi bilateral lung rosenbaum but aeration improving Cardiovascular: regular rate/rhythm Gastrointestinal: Ostomy pink with good stool output, midline incision covered by dry clean gauze Extremities: Bilateral upper extremity pitting edema MILD picc in place Cranial Nerves: normal hearing, PERRL Skin: Normal color, clean and dry around midline incision Skin Temp/Moisture Exam: Warm/Dry IMPRESSION This is a lady with pericolic abscess status post drainage and sigmoid colectomy with end colostomy with status post drainage for fluid placement in the right upper quadrant and left lower abdomen with bilateral pleural fluid, ongoing fever now on meropenem and fluconazole. Issues include postop respiratory failure related to above-mentioned problems Ongoing infection intra-abdominally, with new onset fever with persistent leukocytosis despite drainage of purulent fluid from the right upper quadrant now on meropenem and fluconazole ID on board Pleural effusion bilaterally appears most likely related to a transudative effusion Right middle lobe atelectasis related to mucous plugging, with pseudomonas sputum Persistent leukocytosis Pseudomonas intra-abdominal sepsis and intra-abdominal fungal infection RECOMMENDATION Continue mechanical ventilator COnt pressure-support ventilation trials today if stable will consider a trial of extubation Keep MAP around 65 Watch urine output IV lasix one dose 20 mg and may need to be repeated Keep potassium more than 4 magnesium more than 2 phosphate more than 3 Continue light sedation and antibiotics and tube feedings patient is critically ill total time spent 36 minutes Code Status: Full Code
--- NOTE | 2016-09-11 10:23 | PN- General Surgery ---
Surgical Brief Attending Note Brief Attending Note: Patient seen and examined remains intubated no signs of bleeding drains intact the incision has some pale pink erythema but it's dry no necrosis, there is a iodoform wick at the bottom, surgically stable continue present care.
--- NOTE | 2016-09-11 11:47 | NUR ---
THE PT HAS BEEN VERY RESTLESS THROUGHOUT THE MORNING, REPEATEDLY ATTEMPTING TO PULL AT ETT/OGT/COLOSTOMY BAG. TRIED MULTIPLE TIMES TO REDIRECT THE PT WITHOUT SUCCESS. PT WAS MEDICATED AT 1050 WITH ATIVAN 2MG IV WITH NO EFFECT. PT PLACED IN 4 POINT SOFT RESTRAINTS IN ADDITION TO PULLING AT LINES THE PT REPEATEDLY SWINGS LEGS OFF THE BED NEARLY REMOVING THE TOBAR SEVERAL TIMES. DR MARA MONROY AWARE.
--- NOTE | 2016-09-11 12:52 | NUR ---
THE PT BECAME AGITATED AND WAS TONGUING THE ETT FROM SIDE TO SIDE IN HER MOUTH. DR MARA MONROY NOTIFIED. ETT BEING RETAPED AT THIS TIME BY LOW VOLTAGE TECHNICIAN. FENTANYL GTT WAS INCREASED FROM 12.5MCG/HR TO 25MCG/HR OR 6.3ML/HR. WILL CONTINUE TO MONITOR.
[2016-09-11 16:00] VITALS: BP 126/80
--- NOTE | 2016-09-11 22:49 | NUR ---
AT 2240, BP IS 73/54 WITH A MAP OF 54, CORRELATING WITH MANUAL BP AT 70/48 MMHG, PATIENT IS ALERT, NO PAIN, RR AT 19, SATURATION AT 95%. DR. CHILD INFORMED. AWAITING NEW ORDERS.
[2016-09-11 23:00] VITALS: BP 76/50
--- NOTE | 2016-09-11 23:01 | NUR ---
AT 2255, NS 500 ML BOLUS GIVEN, RUNNING AT 500ML/HR
--- NOTE | 2016-09-12 03:21 | Event Note ---
Event Note Event Note: Pt started becoming hypotensive with systolic around 72 and diastolic high 30's. First gave 500cc bolus, BP went up to 78 systolic. Given that pt required diuresis in AM, has clinical evidence of volume overload and she has PICC in place we decided to start Levophed and titrate to MAP 65. Plan discussed with resident and attending
--- NOTE | 2016-09-12 03:23 | NUR ---
AT 0100, AFTER 1 HOUR OF IV NS 500 ML BOLUS BP REMAIN LOW AT 62/34, PATIENT WAS SEEN BY DR. CHILD AND ORDER TO START LEVOPHED DRIP AND TO KEEP THE MAP ABOVE 65. [facility] INFORM REGARDING THE ORDER AND INFORM TO BRING THE LEVOPHED BAG. AT 0110, PHARMACY ARRIVED WITH THE NEW BAG OF LEVOPHED. AT 0115, LEVOPHED STARTED ACCORDING TO THE [employer] MAP.
[2016-09-12 05:27] LABS: ABSOLUTE BASOPHIL COUNT 0 /CUMM (0.0-0.2)
[2016-09-12 05:46] LABS: ABSOLUTE EOSINOPHIL COUNT 0.1 /CUMM (0.0-0.7); ABSOLUTE GRANULOCYTE CT 12.8 /CUMM (1.4-6.5); ABSOLUTE LYMPH COUNT 1.3 /CUMM (1.2-3.4); BASOPHIL % 0 % (0.0-2.0); EOSINOPHIL % 0.9 % (0-5); HEMATOCRIT 21.8 % (37-47); MEAN CORPUSCULAR HGB 30.1 PG (27.0-31.0); MEAN CORPUSCULAR HGB CONC 33.2 G/DL (33.0-37.0); MEAN CORPUSCULAR VOLUME 90.8 FL (81.0-99.0); MEAN PLATELET VOLUME 8.4 FL (7.4-10.4); RBC DISTRIBUTION WIDTH 16.1 % (11.5-14.5); WHITE BLOOD CELL COUNT 15.4 /CUMM (4.8-10.8)
[2016-09-12 05:59] LABS: PLATELET COUNT 637 /CUMM (130-400)
[2016-09-12 06:00] LABS: GRANULOCYTE % 83.5 % (42.2-75.2)
--- NOTE | 2016-09-12 06:54 | PN- Resident CRCU ---
ELIANA BAILEY,MARA 09/12/16 0654: Subjective HPI/CRCU Issues: Patient seen and examined at bedside this AM. She remains intubated on sedation with fentanyl. Last night, overnight team started her on levophed due to low BP with SBP in the 70s. BP has since responded well. Tmax overnight was 99.8. She was also noted to be slightly agitated and pulled out her hope catheter early this AM. 24 Hour Events: surveillance system monitor: No overnight events. Vital signs last 24 hours: T 97.4-99.8, HR 72-90, RR 16-35, BP 62-143/54-84, O2 88-97% on AC 20 TV 550 FiO2 45% and 5 PEEP. Total intake last 24 hours: 2982 cc Total output: 3020 cc RUQ percutaneous drain: 45 cc drainage, purulent Colostomy output: 385 cc Objective Vital Signs & I&O Last 8 Hrs of Vitals and I&O: T 97.4-99.8, HR 72-90, RR 16-35, BP 62-143/54-84, O2 88-97% on AC 20 TV 550 FiO2 45% and 5 PEEP. Exam General Appearance: well developed/nourished, no apparent distress, alert, awake , comfortable, intubated Head: atraumatic, normal appearance Ears, Nose, Throat: normal pharynx, moist mucus membranes Neck: normal inspection, supple Respiratory: chest non-tender, no respiratory distress, Occasional rhonchi Cardiovascular: regular rate/rhythm Gastrointestinal: normal bowel sounds, soft, non-tender Extremities: normal inspection, Slight pedal edema Cranial Nerves: normal hearing, PERRL Skin: normal color, warm/dry Weaning Parameters NIF: 42 Minute Volume: 10.2 Resp rate: 37 Vt: 275 Heart Rate: 82 Weaning Schedule Start Time: 1300 Minute Volume: 13.0 Resp Rate: 35 Vt: 450 Heart Rate: 95 End Time: 1402 Minute Volume: 15.3 Resp Rate: 45 Vt: 300 Heart Rate: 94 Start Time: 1310 Minute Volume: 7.9 Resp Rate: 25 Vt: 388 Heart Rate: 86 End Time: 1350 Minute Volume: 8.8 Resp Rate: 37 Vt: 280 Heart Rate: 89 Nutrition Nutrition: tube feeding Current Medications: Current Medications Sig/Ry Start time Last Medication Dose Route Stop Time Status Admin Acetaminophen 1,000 MG Q6P PRN 08/27 0230 AC 09/06 N/A 1 UNIT IV 2206 Acetylcysteine 2 ML BID 09/06 1000 AC 09/11 INH 2033 Albuterol Sulfate 3 ML EVERY 4 HRS/AWAKE 09/01 2000 AC 09/11 INH 203 Albuterol Sulfate 3 ML Q4H PRN 08/27 1000 AC 08/28 INH 1309 Chlorhexidine 15 ML TID 08/29 1000 AC 09/11 Gluconate PO 2125 Enoxaparin Sodium 40 MG DAILY 09/03 1000 AC 09/11 SC 0939 Fentanyl Citrate 1,000 MCG Q24H 09/11 0830 AC 09/11 Dextrose/Water 250 ML IV 0940 Fentanyl Citrate 1,000 MCG Q24H 09/08 2200 DC 09/10 Dextrose/Water 250 ML IV 09/11 0829 0610 Fluconazole 400 MG Q24 08/30 1045 AC 09/11 Sodium Chloride 200 ML IV 0939 Furosemide 20 MG ONCE ONE 09/11 1030 DC 09/11 IV 09/11 1031 1041 Lorazepam 2 MG Q3P PRN 09/07 0800 AC 09/11 IV 1050 Magnesium Oxide 400 MG DAILY 09/12 1000 AC PO Magnesium Oxide 400 MG ONE ONE 09/12 0715 DC PO 09/12 0716 Magnesium Oxide 400 MG ONE ONE 09/11 0830 DC 09/11 PO 09/11 0831 0938 Meropenem 1 GM IQ8 09/01 1600 AC 09/12 IV 0805 Morphine Sulfate 1 MG ONCE ONE 09/11 0930 DC 09/11 IV 09/11 0931 0938 Norepinephrine 8 MG Q24H 09/12 0030 AC 09/12 Sodium Chloride 250 ML IV 0101 Pantoprazole Sodium 40 MG DAILY 08/27 1000 AC 09/11 IV 0939 Potassium Chloride 20 MEQ DAILY 09/12 1000 AC PO Potassium Chloride 20 MEQ ONCE ONE 09/12 0715 CAN IV 09/12 0716 Potassium Chloride 20 MEQ ONCE ONE 09/12 0715 DC PO 09/12 0716 Potassium Chloride 40 MEQ ONCE ONE 09/11 0830 DC 09/11 PO 09/11 0831 0938 Propranolol HCl 10 MG AT BEDTIME 09/07 2200 AC 09/11 PO 2125 Sertraline HCl 50 MG DAILY 09/07 1301 AC 09/11 PO 0938 Sodium Chloride 500 ML BOLUS ONE 09/110 DC 06/04 IV 09/11 2359 2256 Trazodone HCl 200 MG AT BEDTIME 09/07 2200 AC 09/11 PO 2125 CXR Findings: IMPRESSION: Hazy bibasilar opacification suggesting pleural effusions with underlying atelectasis/consolidation. Endotracheal tube tip approximately 4 cm above the evelio. Impression/Plan Impression/Problem List Impression: Ms. Camacho is a 60 year old female with PMH anxiety, depression, COPD , prior episode of severe clostridium difficile infection in 2016, tobacco abuse and gastritis who presented to the [place] ED after one week of altered mental status, decreased oral intake and possible withdrawl symptoms as her clonazepam was being titrated off per doctor instructions. She was found to be hypotensive, febrile and altered while in the [place] ED. In the ED: Vital signs showed Tmax 101.5, HR 116, RR 20, BP 93/62 and O2 saturation 90% on room air. Labs were significant for WBC 18.1 with 37 bands, H&H 13.7/41.6, Plt 623, Na 143 , K 3.6, Cl 107, HCO3 16, BUN/cre 28/1.8, Glu 98, Lactic acid 2.9, AST 62, ALT 42, CK 370, troponin 0.05, proBNP 68827, amylase 153, lipase <10, and UA with high protein, positive nitrite, high urobilinogen, 50 WBCs, moderate bacteria and large hgb. CXR showed no acute pulmonary process. Head CT was negative for acute pathology. Patient was admitted to the ICU and the following is the current management: 1. Severe sepsis secondary to peritonitis from perforated sigmoid colon with abscess formation * Patient febrile, + leukocytosis with bandemia, hypotensive and tachycardic on admission * Post-op day #17 from Harmann's procedure with Dr. Marcello MD; patient remains intubated off pressors, ostomy pink with + green liquid stool * Patient s/p IR guided drainage on 09/02/16 of RUQ and LLQ fluid with drains in place * RUQ continues to drain, showed moderate WBC, few gram + cocci but no significant growth after 3 days; drained 25 cc overnight and appears to be purulent * LLQ drain removed * LRC showed pseudomonas resistant to zosyn; continue IV meropenem (day #11) and continue IV fluconazole to 400 g IV Q24 hours (day #12) * Repeat CT abdomen/pelvis with IV and oral contrast today to evaluate for worsening hypotension * Continue to trial with PSV and if does well will consider extubation; Consider IV lasix 20 mg as meeded for fluid overload * Continue tube feeds at goal rate * Surgery follow up appreciated with Dr. Marcello MD 2. Metabolic encephalopathy, IMPROVED * On admission, likely secondary to severe sepsis from sigmoid perforation/ peritonitis * CT head negative for acute intracranial pathology * Patient alert, oriented and appropriate; continue home psych meds including trazodone, propranolol and sertraline daily * Ativan PRN anxiety 3. Acute hypoxemic respiratory failure * Patient initially placed on non-rebreather but was transitioned to high flow nasal cannula/ BiPAP due to tachypnea/apparent respiratory distress * Patient tolerated BiPAP well but was intubated for Ho's procedure; FiO2 requirements somewhat increased toda, will hold off on PSV trials until FiO2 decreased to 40% * Trial for extubation once FiO2 40% or less * CTA to rule out PE as cause of increased O2 requirements today, follow up results * Continue mucomyst * Aspiration precautions * Noted bilateral pleural effusions on CT chest, patient s/p thoracentesis on 4. SIERRA, IMPROVED * Likely prerenal in the setting of severe sepsis; patient s/p IVF with improvement noted * Monitor renal function and electrolytes with ICU bundle * Monitor urine output, strict Is/Os 5. Sinus tachycardia with T wave changes, IMPROVED * Continuous telemetry monitoring * Troponins negative x 3 * Echo showed normal global LV function without wall motion abnormalities and normal pulm artery systolic pressure * Monitor vital signs closely 6. Thrombocytopenia, RESOLVED * Plt this AM increased to 637 (623 on admission) * Initial thrombocytopenia likely 2/2 coagulopathly from sepsis * 4Ts score placed patient at low risk for HIT (<5%) * Resumed SC lovenox on 09/02 7. Acute blood loss anemia * Patient given 3 U PRBC total since admission, will give 1 more unit PRBC today for anemia * Folow up post-transfusion CBC at 5pm * Follow up CBC daily, monitor for bleeding FULL CODE Diet: Tube feeds DVTP: ALPS + SC lovenox Pain: Fentanyl drip Problem List: 1. Status post Ho's procedure 2. History of adenomatous polyp of colon 3. Diverticulosis of colon 4. Malnutrition 5. History of Clostridium difficile infection 6. Lactic acidosis 7. Hypotension 8. Perforated viscus Pain Ratin Tomorrow's Labs & Rationales: CBC, ICU bundle Plan DVT/Prophylaxis: mechanical, pharmacological Code Status: Full Code ABELARDO CARIAS MD 09/12/16 0926: Attending MD Review Statement Attending Sign Off Attending Cosign Statement: I have: examined this patient, reviewed avalbl EMR data, personally reviewd images, discussd w/resident/PA/SEAFOOD SPECIALIST, discussed mgmt plan w/kavya, discussed mgmt plan w/CM, discussed mgmt plan w/pt, agreed w/resident/PA/SEAFOOD SPECIALIST, amended to note. Other Findings: IAbelardo M.D. have examined this patient, reviewed available EMR data, personally reviewed images, discussed with resident/PA/SEAFOOD SPECIALIST, discussed management plan with housestaff and nursing staff, discussed managment plan all of healthcare providers, discussed management plan with patient and/or family, agreed with resident/PA/SEAFOOD SPECIALIST. The past history and parts of the chart have been autopopulated. Impression 60 year old woman * Hypoxemic respiratory failure slowly improving * Sepsis with leukocytosis secondary to pericolic abscess s/p drainage and sigmoid colectomy with end colostomy, now s/p drainage catheter placement by IR for fluid collections in right upper and left lower abdomen * abdominal fluid and pleural effusions Plan Respiratory -TRC/Nebs, aspiration precautions -CPAP trials - has not been able to be liberated given tachypnea -if within the next few days remains intubated, will plan for trach ID -continue abx -ID follow up -on meropenem and fluconazole CVS -monitor hemodynamics Heme -monitor cbc, coags Metabolic -monitor electrolytes, ins/outs, creatinine Alimentary -f/u surgery -nutrition input Neuro -anxiolysis, psych follow up when extubated DVT prophylaxis at all times - lovenox TTS 35 min
[2016-09-12 07:00] VITALS: BP 114/59
--- NOTE | 2016-09-12 07:25 | NUR ---
AT 0600, HEMOGLOBIN 7.2 DR. CHILD INFORMED, WAITING FOR NEW ORDER.
--- NOTE | 2016-09-12 07:27 | NUR ---
AT 0630, PATIENT PULLED OUT TOBAR CATHETER, DR. WHITMORE INFOED, SUGGEST TO HER TO INSERT BIGGER CATHETER THAN THE PREVIOUS ON ( fR 16 TO fR 18 )
[2016-09-12 08:00] VITALS: BP 112/66
--- NOTE | 2016-09-12 09:18 | RADIOLOGY REPORT ---
EXAMINATION: XR PORTABLE CHEST CLINICAL INFORMATION: Aspiration pneumonia, ET tube placement COMPARISON: 09/11/2016 TECHNIQUE: Portable frontal view of the chest was obtained. FINDINGS: Endotracheal tube tip lies approximately 4 cm above the evelio. Right PICC tip lies at the level of the upper SVC. Enteric tube courses below the diaphragm. Lung volumes are symmetric. There is hazy bibasilar opacification which may reflect a combination of layering pleural effusion and underlying atelectasis/consolidation; appearance is similar to prior. No pneumothorax is seen. Cardiac size is within normal limits. Calcification is present at the aortic arch. No acute osseous findings are seen. IMPRESSION: Hazy bibasilar opacification suggesting pleural effusions with underlying atelectasis/consolidation. Endotracheal tube tip approximately 4 cm above the evelio.
--- NOTE | 2016-09-12 10:13 | PN- Infect Dx ---
Subjective Subjective: Afebrile without complaints. She did become hypotensive overnight, for which she received a fluid bolus and Levophed. Objective Last 24 Hrs of Vital Signs/I&O Vital Signs Date Time Temp Pulse Resp B/P B/P Pulse O2 O2 Flow FiO2 Mean Ox Delivery Rate 06/ 0821 50 06/05 0700 97.4 78 23 114/59 92 Ventilator 45% 06/05 0544 50 06/05 0402 50 06/05 0400 92 Ventilator 45% 06/05 0101 97.7 75 19 62/34 06/05 0054 45 06/05 0000 92 Ventilator 45% 06/04 2300 97.7 72 22 76/50 92 Ventilator 45% 06/04 2238 45 06/04 2125 99.8 84 19 129/57 06/04 2000 95 Ventilator 45% 06/04 1900 45 06/04 1630 45 06/04 1600 95 Ventilator 45% 06/04 1600 98.7 87 23 126/80 95 Ventilator 45% 06/04 1417 45 06/04 1200 96 Ventilator 45% 06/04 1155 45 Intake & Output / 1600 06/05 0800 06/05 0000 Intake Total 1262 810.4 Output Total 605 645 Balance 657 165.4 Intake, IV 582 80.4 Intake, Other 560 560 Intake, Tube 120 170 Irrigant Output, Stool 200 110 Output, Urine 405 535 Physical Exam Other Physical Findings: She is awake and alert on the ventilator in no acute distress. Blood pressure now 114/59 on pressors Lungs are clear Heart regular rhythm with no murmur Abdomen is soft, nontender with positive bowel sounds; liquid stool in the colostomy; right upper quadrant drain with seropurulent fluid, with 45 mL output recorded yesterday Extremities 1+ edema left lower extremity Fulton catheter remains in place Results Last 24 Hours of Lab Results: Laboratory Tests 09/12 0440 Chemistry Sodium (137 - 145 mmol/L) 135 L Potassium (3.5 - 5.1 mmol/L) 3.9 Chloride (98 - 107 mmol/L) 103 Carbon Dioxide (22 - 30 mmol/L) 23 Anion Gap (5 - 16) 8 BUN (7 - 17 mg/dL) 11 Creatinine (0.5 - 1.0 mg/dL) 0.5 Estimated GFR (>60 ml/min) > 60 Glucose (65 - 99 mg/dL) 101 H Calcium (8.4 - 10.2 mg/dL) 7.5 L Phosphorus (2.5 - 4.5 mg/dL) 3.8 Magnesium (1.6 - 2.3 mg/dL) 1.9 Total Bilirubin (0.2 - 1.3 mg/dL) 0.3 AST (14 - 36 U/L) 27 ALT (9 - 52 U/L) 37 Albumin (3.5 - 5.0 g/dL) 1.9 L Hematology CBC w Diff NO MAN DIFF REQ WBC (4.8 - 10.8 /CUMM) 15.4 H RBC (4.20 - 5.40 /CUMM) 2.40 L Hgb (12.0 - 16.0 G/DL) 7.2 *L Hct (37 - 47 %) 21.8 L MCV (81.0 - 99.0 FL) 90.8 MCH (27.0 - 31.0 PG) 30.1 RDW (11.5 - 14.5 %) 16.1 H Plt Count (130 - 400 /CUMM) 637 H MPV (7.4 - 10.4 FL) 8.4 Gran % (42.2 - 75.2 %) 83.5 H Lymphocytes % (20.5 - 51.1 %) 8.8 L Monocytes % (1.7 - 9.3 %) 6.8 Eosinophils % (0 - 5 %) 0.9 Basophils % (0.0 - 2.0 %) 0 L Absolute Granulocytes (1.4 - 6.5 /CUMM) 12.8 H Absolute Lymphocytes (1.2 - 3.4 /CUMM) 1.3 Absolute Monocytes (0.10 - 0.60 /CUMM) 1.0 H Absolute Eosinophils (0.0 - 0.7 /CUMM) 0.1 Absolute Basophils (0.0 - 0.2 /CUMM) 0 PUBS MCHC (33.0 - 37.0 G/DL) 33.2 Last 24 Hours of [place] Results: Urine culture September 10 negative Recent Imaging Studies: Chest x-ray September 12, personally reviewed, reveals bibasilar opacification suggesting pleural effusions with underlying atelectasis/consolidation, unchanged from previous study Assessment/Plan Impression: Recent hypotension, requiring pressors, with etiology unclear, with ongoing respiratory failure, preventing her from being weaned, with status otherwise stable with no recent fevers and with white blood cell count continuing to decrease now 11 days status post placement of a catheter for drainage of a purulent fluid collection from the right upper quadrant, with purulent fluid still draining, now 17 days status post Granger's procedure for a perforated sigmoid colon. She remains on Meropenem and Fluconazole for a polymicrobial peritonitis, with Clostridium isolated from the initial blood culture, and for possible pneumonia, with Pseudomonas isolated from the sputum cultures. The recent CT scan also revealed wedge-shaped areas of hypoenhancement within the spleen, suggesting splenic infarcts, which are of unclear significance. Suggestion: 1. Consider CTA of the chest 2. If CTA of the chest is ordered would also image the abdomen and pelvis with oral and IV contrast 3. Continue Meropenem and Fluconazole
--- NOTE | 2016-09-12 12:28 | NUR ---
PT REMAINS ORALLY INTUBATED AND SEDATED WITH FENTANYL DRIP AT 12.5 MG WITH SAS 4. SHE DENIES PAIN. SHE HAS REMAINED ON LEVO WHICH IS BEING TAPERED ACCORDING TO MAINTAIN PAP >65. SHE FOLLOWS COMMANDS AND ALTHOUGH ANXIOUS AND RESTLESS AT TIMES, WE HAVE D/C/D FOOT RESTRAINTS AND HAVE BEEN ABLE TO MAINTAIN SAFETY. TF INFUSING AT GOAL RATE. ONE UNIT PACKED CELLS INFUSED AND CBC IS ORDERED FOR 1600.
--- NOTE | 2016-09-12 13:18 | PN- General Surgery ---
Surgical Brief Attending Note Brief Attending Note: DRAINAGE RUQ PERSISTS. SEROPURULENT. DOUBT ONGOING SOURCE OF SEPSIS/HYPOTENSION. WBC TRENDING DOWN. IMAGING PER PRIMARY TEAM. NO FURTHER RECS
--- NOTE | 2016-09-12 13:48 | Transfer of Care Summary ---
Hospital Course Course Hospital Course: Ms. Camacho is a 60 year old female with PMH anxiety, depression, COPD , prior episode of severe clostridium difficile infection in 2016, tobacco abuse and gastritis who presented to the [place] ED after one week of altered mental status, decreased oral intake and possible withdrawl symptoms as her clonazepam was being titrated off per doctor instructions. She was found to be hypotensive, febrile and altered while in the [place] ED. In the ED: Vital signs showed Tmax 101.5, HR 116, RR 20, BP 93/62 and O2 saturation 90% on room air. Labs were significant for WBC 18.1 with 37 bands, H&H 13.7/41.6, Plt 623, Na 143 , K 3.6, Cl 107, HCO3 16, BUN/cre 28/1.8, Glu 98, Lactic acid 2.9, AST 62, ALT 42, CK 370, troponin 0.05, proBNP 49679, amylase 153, lipase <10, and UA with high protein, positive nitrite, high urobilinogen, 50 WBCs, moderate bacteria and large hgb. CXR showed no acute pulmonary process. Head CT was negative for acute pathology. Patient was admitted to the ICU and the following was the management to date: 1. Severe sepsis secondary to peritonitis from perforated sigmoid colon with abscess formation: Patient febrile, leukocytosis with bandemia, hypotensive and tachycardic on admission. She was griggs-cultured and started on empiric antibiotic therapy with IV unasyn and ceftriaxone. ID consult with Dr. Alycia MD placed. She was placed on pressors for blood pressure support. CT abdomen/pelvis showed free intra-abdominal air and patient was taken to the OR with Dr. Marcello MD for exploratory laparotomy. Patient tolerated Ho's procedure well with noted sigmoid resection and end colostomy well. She was switched to IV flagyl and IV ceftriaxone given concern for previous history of clostridium difficile. Surgery followed patient daily and continued to advice on management of continued intra- abdominal infection. Blood cultures showed no growth, lower respiratory culture grew pseudomonas and culture from OR grew E.Coli, alpha/beta strep and brandon. As lower respiratory culture pseudomonas was resistent to zosyn, patient was placed on IV fluconazole and IV meropenem for complete coverage. Patient had repeat abdominal CT scan which demarcated fluid collections. IR placed one RUQ drain and one LLQ drain to drain this fluid. LLQ was subsequently taken out but the RUQ drain remains in place with continued purulent drainage. Patient hypotensive overnight 09/11/16-09/12/16 and was started on levophed again. Due to this and noted hypoxia, follow up CTA to rule out PE and follow up abdominal/ pelvis CT with IV and PO contrast ordered. Please follow up the results of these two tests, continue to follow ID/surgical recommendations and please continue IV antibiotics to completion. Disciss with surgery when to remove RUQ drain. 2. Metabolic encephalopathy: Patient noted to have altered mental status leading up to admission including one episode of eating toilet paper. Likely due to sepsis with gross peritonitis. All home psychotropic medications held on admission and psychiatric consult placed. It was suggested to not resume these medications until mental status back to baseline. As IV antibiotics adjusted and patient came off of pressors, her mental status returned to baseline and patient completely alert and oriented as well as able to follow commands. Home psychotropics resumed. Continue to follow up psych recommendations. 3. Acute hypoxic respiratory failure: Patient initially placed on non-rebreather ue to lower O2 saturation on admission of 90% on room air. She was transitioned to high flow nasal cannula/BiPAP due to tachypnea/apparent respiratory distress but was intubated for Ho's procedure with Dr. Marcello MD. Patient had noted bilateral pleural effusions seen on chest CT and had a thoracentesis by IR on . Patient is continued on the mechanical ventilator as she becomes tachypneic and slightly anxious during weaning trials. Consider ativan during next PSV trial. However, this morning patient had noted desaturation requiring increasing FiO2 supplementation. Chest CTA was ordered, please follow up results to rule out PE or worsening bilateral pleural effusions. Continue to follow pulmonary recommendations and continue breathing trials for liberation. 4. SIERRA: On admission, BUN/cre elevated to 28/1.8. This was likely prerenal in the setting of severe sepsis. Patient given IV fluids and renal function improved. We continued to monitor strict Is/Os and monitored renal function daily. Fluids were ultimately tapered off as patient appeared fluid overloaded with bilateral pedal edema and anasarca. Please monitor hydration status and diurese or supplement fluids as needed. 5. Sinus tachycardia with minor T wave changes: Minor T wave changes noted on initial EKG. ACS as ruled out with troponin/EKG x 3. Echocardiogram was performed and showed normal global left ventricular function without wall motion abnormalities and normal pulmonary artery systolic pressure. She was continued on the telemetry monitoring. Please continue to monitor rhythm strip and address any cardiac issues as they arise. 6. Thrombocytopenia: On admission, patient had thrombocytosis to 623. She subsequently drooped rapidly with jenifer of 89. DVT prophylaxis was discontinued at that time and platelet count was monitored closely. 4Ts score placed patient at low risk for HIT (<5%). Acute drop likely represented coagulopathy from ongoing sepsis. Platelet count returned to normal and patient again has thrombocytosis. She was placed back on DVT prophylaxis with SC lovenox on 09/02. 7. Acute blood loss anemia: Noted anemia after Granger's procedure. She has had her CBC trended and a total of 4 units PRBCs delivered to date. No evidence of acute bleeding appreciated. Continue to monitor for bleeding and continue to follow CBC daily. Transfuse as needed to keep H&H stable. 8. Code: FULL 9. DVTP: SC lovenox 10. Diet: Tube feeds Assessment/Plan: See above. Attending MD Review Statement Documenting Attending: ARETHA BAILEY,GARY
[2016-09-12 16:00] VITALS: BP 110/70
--- NOTE | 2016-09-12 17:22 | CT SCAN REPORT ---
EXAMINATION: CT ANGIOGRAM OF THE CHEST WITH AND WITHOUT CONTRAST (CT PULMONARY ANGIOGRAM FOR PE) CLINICAL INFORMATION: Increasing oxygen requirements, hypotension. COMPARISON: 09/07/2016. TECHNIQUE: Prior to contrast administration, noncontrast localization images were obtained. Subsequently, multidetector volumetric imaging was performed from the thoracic inlet to below the diaphragms following the administration of 120 mL Optiray 350 intravenous contrast. No contrast reaction reported. Sagittal, coronal, and MIP oblique sagittal reformatted images were obtained on the CT workstation, uploaded to PACS, and reviewed. Total exam dose-length product 1015 mGy-cm. FINDINGS: QUALITY OF STUDY/CONTRAST BOLUS: Satisfactory PULMONARY ARTERIES: The pulmonary arterial tree is well-opacified without evidence of filling defects to suggest pulmonary emboli. THORACIC AORTA: Unremarkable. No aneurysm or dissection is identified. LUNG AND PLEURA: An endotracheal tube remains in place in satisfactory position approximate 5 cm proximal to the evelio. A right-sided pigtail drainage pleural catheter on the right is also again noted from a lateral approach inferiorly. Moderate sized bilateral pleural effusions have increased in size compared with the previous examination with associated complete collapse of the left lower lobe with near complete collapse of the right lower lobe with only a small portion of the superior segment aerated. The medial segment of the right middle lobe also remains collapsed. There is a stable focus of discoid atelectasis or scarring in the lingula. MEDIASTINUM: An enteric tube courses through the esophagus and into the stomach the tip not visualized on this exam. A right-sided peripherally inserted central venous catheter is again noted with its tip in the superior vena cava. There is no lower cervical, mediastinal, or hilar lymphadenopathy. There is no significant pericardial effusion. CHEST WALL/AXILLA: There is no lymphadenopathy. OSSEOUS STRUCTURES: No aggressive osseous lesions. UPPER ABDOMEN: A probable cyst laterally in the left lobe of the liver is again noted. Please see the separately dictated abdominal and pelvis CT dictation for further information. IMPRESSION: 1. No evidence of pulmonary embolism. 2. Increasing moderate-sized bilateral pleural effusions with left lower lobe and medial segment right lower lobe collapse unchanged. 3. Otherwise largely unremarkable examination with lines and tubes as noted.
--- NOTE | 2016-09-12 17:28 | CT SCAN REPORT ---
EXAMINATION: CT ABDOMEN AND PELVIS WITH CONTRAST CLINICAL INFORMATION: 60-year-old female with persistent leukocytosis status post drainage. Right upper quadrant abscess. COMPARISON: Noncontrast images of abdomen pelvis from 08/31/2016, 09/04/2016 and 09/07/2016. TECHNIQUE: Multidetector volumetric imaging was performed of the abdomen and pelvis after the IV administration of Optiray 350 nonionic intravenous contrast. For contrast dose, please refer to the separately dictated chest CT. Sagittal and coronal reformatted images were obtained on the technologist's workstation. DLP: Please refer to the chest CT for DLP data regarding CT exams of the chest, abdomen and pelvis. FINDINGS: LUNG BASES: Persistent, moderate-sized bilateral pleural effusions surround the collapsed lower lobes. LIVER, GALLBLADDER, AND BILIARY TREE: There are simple cysts in the right and left lobes of the liver. Gallbladder is underdistended. No radiopaque calculi are identified. No intrahepatic bile duct dilatation. The portal and hepatic veins are patent. PANCREAS: Unremarkable. SPLEEN: Spleen is normal in size. There are several perfusion defects within the spleen, consistent with splenic infarcts, similar in appearance compared to 09/04/2016. ADRENAL GLANDS: Unremarkable. KIDNEYS AND URETERS: Kidneys are normal in size and enhance symmetrically. No evidence of nephrolithiasis, hydronephrosis or perinephric abscess. BLADDER: The urinary bladder is decompressed by a Fulton catheter. GASTROINTESTINAL TRACT: The tip of an enteric tube terminates in the region of the gastric body. There are no dilated bowel loops. Again noted is the descending colostomy of the left lower abdominal wall and oversewn rectosigmoid pouch within the pelvis. PERITONEAL CAVITY: A drainage catheter is present within the perihepatic collection overlying the right hepatic lobe; this collection remains similar in size compared to 09/07/2016. The residual fluid overlying the right hepatic lobe measures up to 1.1 cm wide as its extends from superior to inferior. There are rim-enhancing fluid pockets extending inferior and posterior to the right hepatic lobe, occupying Morison's pouch. The peripherally enhancing pocket in the right subhepatic space is approximately 2.7 cm wide, 6 cm AP -- not significantly changed from 09/07/2016, and this communicates with the pocket of fluid extending into Morison's pouch. A small amount of fluid is again noted within the lesser sac. Also, there is a small amount of persistent rim-enhancing, loculated appearing fluid along the left paracolic gutter (images 39-55, series 5) and within the deep pelvis (images 67-70, series 5). ABDOMINAL WALL: There is anasarca with extensive edema of the abdominal wall, flanks and thighs. Again noted is a small amount of fluid along the postoperative wound in the midline of the abdominal wall. LYMPH NODES: Multiple small, clustered lymph nodes are present within the retroperitoneum; these are not pathologic on the basis of size criteria. VASCULAR: Calcific atherosclerosis of the abdominal aorta without aneurysm. PELVIC VISCERA: There are dilated gonadal and parauterine veins within the pelvis. A small amount of rim-enhancing fluid is present within the deep pelvis, similar in volume compared to 09/04/2016. OSSEOUS STRUCTURES: Multilevel degenerative arthropathy of the spine. Within the lumbar spine, disc degeneration is severe at L4-L5 and there is 0.8 cm of grade 2 anterolisthesis of L4 on L5. IMPRESSION: 1. Persistent anasarca. 2. Persistent pockets of peripherally enhancing fluid within the peritoneal cavity remain similar in size compared to 09/07/2016. 3. Moderate bilateral pleural effusions surround the collapsed lower lobes. 4. Splenic infarcts, unchanged compared to 09/04/2016.
--- NOTE | 2016-09-12 17:30 | NUR ---
LEVO HAS BEEN TAPERED OFF. BLOOD HAS BEEN TRANSFUSED. 1700 LABS ARE PENDING. SHE WAS TAKEN TO CT FOR CT SCAN, BAGGED BY RT AND MONITORED BY GRADUATION COACH. IV ATIVAN GIVEN PRIOR TO SCAN.
[2016-09-12 17:51] LABS: ABSOLUTE BASOPHIL COUNT 0 /CUMM (0.0-0.2); ABSOLUTE EOSINOPHIL COUNT 0.1 /CUMM (0.0-0.7); ABSOLUTE GRANULOCYTE CT 13.8 /CUMM (1.4-6.5); ABSOLUTE LYMPH COUNT 1.2 /CUMM (1.2-3.4); ABSOLUTE MONOCYTE COUNT 1.1 /CUMM (0.10-0.60); BASOPHIL % 0.2 % (0.0-2.0); EOSINOPHIL % 0.5 % (0-5); HEMATOCRIT 26.1 % (37-47); MEAN CORPUSCULAR HGB 30.1 PG (27.0-31.0); MEAN CORPUSCULAR HGB CONC 33.3 G/DL (33.0-37.0); MEAN CORPUSCULAR VOLUME 90.3 FL (81.0-99.0); MEAN PLATELET VOLUME 8.2 FL (7.4-10.4); PLATELET COUNT 650 /CUMM (130-400); RBC DISTRIBUTION WIDTH 16.5 % (11.5-14.5); RED BLOOD CELL CT 2.89 /CUMM (4.20-5.40); WHITE BLOOD CELL COUNT 16.3 /CUMM (4.8-10.8)
[2016-09-12 17:59] LABS: GRANULOCYTE % 84.8 % (42.2-75.2)
[2016-09-13] VITALS: BP 100/64
[2016-09-13 05:05] LABS: ABSOLUTE BASOPHIL COUNT 0.1 /CUMM (0.0-0.2); ABSOLUTE EOSINOPHIL COUNT 0.2 /CUMM (0.0-0.7); ABSOLUTE GRANULOCYTE CT 12.7 /CUMM (1.4-6.5); ABSOLUTE MONOCYTE COUNT 1.1 /CUMM (0.10-0.60); BASOPHIL % 0.4 % (0.0-2.0); EOSINOPHIL % 1.3 % (0-5); GRANULOCYTE % 84.1 % (42.2-75.2); HEMATOCRIT 27.1 % (37-47); MEAN CORPUSCULAR HGB 29.9 PG (27.0-31.0); MEAN CORPUSCULAR HGB CONC 32.9 G/DL (33.0-37.0); MEAN PLATELET VOLUME 8.4 FL (7.4-10.4); PLATELET COUNT 693 /CUMM (130-400); RBC DISTRIBUTION WIDTH 16.6 % (11.5-14.5); RED BLOOD CELL CT 2.98 /CUMM (4.20-5.40); WHITE BLOOD CELL COUNT 15.1 /CUMM (4.8-10.8)
--- NOTE | 2016-09-13 07:23 | PN- Resident CRCU ---
JOSE BAILEY,ISNHIL 09/13/16 0723: Subjective HPI/CRCU Issues: Alert but orientation cannot be assessed. Pt still intubated and mechanically ventilated. bilateral UE soft restrainers in place. Has a Fulton catheter in place. Right arm IV with no sign of infiltration or infection. Left sided colostomy filled with non-bloody light brown watery stool. 24 Hour Events: Tmax 97.7 HR Avrage 78, Tele events: Davion cardia down to 49 at 10:48 yesterday BP lowest 95/80 and highest 124/70 Yesterday I/O 2640/3420 total balance to date 77522/69998 IV #1 has fentanyl at rate of 3.1 Objective Vital Signs & I&O Last 8 Hrs of Vitals and I&O: Intake & Output 09/13 1600 Intake Total 990 Output Total 580 Balance 410 Intake, IV 285 Intake, Tube 500 Feeding Intake, Tube 205 Irrigant Output, Chest 10 Tube Drainage Output, Stool 170 Output, Urine 400 Exam General Appearance: no apparent distress, alert, awake, intubated Head: atraumatic, normal appearance Neck: normal inspection, supple Respiratory: chest non-tender, lungs clear Cardiovascular: regular rate/rhythm Gastrointestinal: soft, non-tender Extremities: normal inspection, no edema Weaning Parameters NIF: 42 Minute Volume: 6.47 Resp rate: 25 Vt: 260 Heart Rate: 74 Weaning Schedule Start Time: 1940 Minute Volume: 8.99 Resp Rate: 23 Vt: 390 Heart Rate: 74 End Time: 2110 Minute Volume: 11.1 Resp Rate: 28 Vt: 395 Heart Rate: 79 Start Time: 1310 Minute Volume: 7.9 Resp Rate: 25 Vt: 388 Heart Rate: 86 End Time: 1350 Minute Volume: 8.8 Resp Rate: 37 Vt: 280 Heart Rate: 89 Current Medications: Current Medications Sig/Ry Start time Last Medication Dose Route Stop Time Status Admin Acetaminophen 1,000 MG Q6P PRN 08/27 0230 AC 09/06 N/A 1 UNIT IV 2206 Acetylcysteine 2 ML BID 09/06 1000 AC 09/13 INH 0747 Albuterol Sulfate 3 ML EVERY 4 HRS/AWAKE 09/02 1999 AC 09/13 INH 0746 Albuterol Sulfate 3 ML Q4H PRN 08/27 1000 AC 08/28 INH 1309 Chlorhexidine 15 ML TID 08/29 1000 AC 09/12 Gluconate PO 2139 Enoxaparin Sodium 40 MG DAILY 09/03 1000 AC 09/12 SC 1025 Fentanyl Citrate 1,000 MCG Q24H 09/11 0830 AC 09/13 Dextrose/Water 250 ML IV 0222 Fluconazole 400 MG Q24 08/30 1045 DC 09/12 Sodium Chloride 200 ML IV 1159 Lorazepam 2 MG Q3P PRN 09/07 0800 AC 09/13 IV 0247 Magnesium Oxide 400 MG DAILY 09/12 1000 AC 09/12 PO 1025 Meropenem 1 GM IQ8 09/01 1600 AC 09/13 IV 0748 Norepinephrine 8 MG Q24H 09/12 0030 AC 09/12 Sodium Chloride 250 ML IV 0101 Pantoprazole Sodium 40 MG DAILY 08/27 1000 AC 09/12 IV 1026 Potassium Chloride 20 MEQ DAILY 09/12 1000 AC 09/12 PO 1025 Propranolol HCl 10 MG AT BEDTIME 09/07 2200 AC 09/12 PO 2139 Sertraline HCl 50 MG DAILY 09/07 1301 AC 09/12 PO 1026 Trazodone HCl 200 MG AT BEDTIME 09/07 2200 AC 09/12 PO 2139 Impression/Plan Impression/Problem List Impression: Ms. Camacho is a 60 year old female with PMH anxiety, depression, COPD , prior episode of severe clostridium difficile infection in 2016, tobacco abuse and gastritis who presented to the [place] ED after one week of altered mental status, decreased oral intake and possible withdrawl symptoms as her clonazepam was being titrated off per doctor instructions. She was found to be hypotensive, febrile and altered while in the [place] ED. On admission: Vital signs showed Tmax 101.5, HR 116, RR 20, BP 93/62 and O2 saturation 90% on room air. On admission Labs were significant for WBC 18.1 with 37 bands, H&H 13.7/41.6, Plt 623, Na 143, K 3.6, Cl 107, HCO3 16, BUN/cre 28/1.8, Glu 98, Lactic acid 2.9 , AST 62, ALT 42, CK 370, troponin 0.05, proBNP 71672, amylase 153, lipase <10, and UA with high protein, positive nitrite, high urobilinogen, 50 WBCs, moderate bacteria and large hgb. CXR showed no acute pulmonary process. Head CT was negative for acute pathology. Patient was admitted to the ICU and the following is the current management: 1. Severe sepsis secondary to peritonitis from perforated sigmoid colon with abscess formation * Patient febrile, + leukocytosis with bandemia, hypotensive and tachycardic on admission * Post-op day #18 from Harmann's procedure with Dr. Marcello MD; patient remains intubated off pressors, ostomy pink with + brown liquid stool * Patient s/p IR guided drainage on 09/02/16 of RUQ and LLQ fluid with drains in place * RUQ continues to drain, showed moderate WBC, few gram + cocci but no significant growth after 4 days; drained 25 cc overnight and appears to be purulent * LLQ drain removed * LRC showed pseudomonas resistant to zosyn; continue IV meropenem (day #11) and continue IV fluconazole to 400 g IV Q24 hours (day #12) * Repeat CT abdomen/pelvis yesterday showed Persistent pockets of peripherally enhancing fluid within the peritoneal cavity remain similar in size compared to 09/07/2016. * Continue tube feeds at goal rate * Surgery follow up appreciated with Dr. Marcello MD 2. Metabolic encephalopathy, IMPROVED * On admission, likely secondary to severe sepsis from sigmoid perforation/ peritonitis * CT head negative for acute intracranial pathology * Patient alert, oriented and appropriate; continue home psych meds including trazodone, propranolol and sertraline daily * Ativan PRN anxiety 3. Acute hypoxemic respiratory failure * Patient initially placed on non-rebreather but was transitioned to high flow nasal cannula/ BiPAP due to tachypnea/apparent respiratory distress * Patient tolerated BiPAP well but was intubated for Ho's procedure; will hold off on PSV trials until FiO2 decreased to 40% * Trial for extubation once FiO2 40% or less * CTA yesterday ruled out PE as cause of increased O2 requirements. * Continue mucomyst * Aspiration precautions * Noted bilateral pleural effusions on CT chest, patient s/p thoracentesis on 4. SIERRA, IMPROVED * Likely prerenal in the setting of severe sepsis; patient s/p IVF with improvement noted * Monitor renal function and electrolytes with ICU bundle * Monitor urine output, strict Is/Os 5. Sinus tachycardia with T wave changes, IMPROVED * Continuous telemetry monitoring * Troponins negative x 3 * Echo showed normal global LV function without wall motion abnormalities and normal pulm artery systolic pressure * Monitor vital signs closely 6. Thrombocytopenia, RESOLVED * Initial thrombocytopenia likely 2/2 coagulopathly from sepsis * 4Ts score placed patient at low risk for HIT (<5%) * Resumed SC lovenox on 09/02 7. Acute blood loss anemia * Patient given 4 U PRBC total since admission, with last one being yesterday * This morning hemoglobin is 8.9 * Follow up CBC daily, monitor for bleeding FULL CODE Diet: Tube feeds DVTP: ALPS + SC lovenox Pain: Fentanyl drip Problem List: 1. Status post Ho's procedure 2. History of adenomatous polyp of colon 3. Malnutrition 4. Lactic acidosis 5. Hypotension 6. Perforated viscus Pain Ratin Tomorrow's Labs & Rationales: ICU bundle and CBC Plan DVT/Prophylaxis: mechanical, pharmacological Code Status: Full Code ABELARDO CARIAS MD 09/13/16 0910: Attending MD Review Statement Attending Sign Off Attending Cosign Statement: I have: examined this patient, reviewed aval EMR data, personally reviewd images, discussd w/resident/PA/MANAGING SUPERVISOR, discussed mgmt plan w/kavya, discussed mgmt plan w/CM, discussed mgmt plan w/pt, agreed w/resident/PA/MANAGING SUPERVISOR, amended to note. Other Findings: IAbelardo M.D. have examined this patient, reviewed available EMR data, personally reviewed images, discussed with resident/PA/MANAGING SUPERVISOR, discussed management plan with housestaff and nursing staff, discussed managment plan all of healthcare providers, discussed management plan with patient and/or family, agreed with resident/PA/MANAGING SUPERVISOR. The past history and parts of the chart have been autopopulated. Impression 60 year old woman * Hypoxemic respiratory failure remains intubated * Sepsis with leukocytosis secondary to pericolic abscess s/p drainage and sigmoid colectomy with end colostomy, now s/p drainage catheter placement by IR for fluid collections in right upper and left lower abdomen * abdominal fluid and pleural effusions Plan Respiratory -TRC/Nebs, aspiration precautions -CPAP trials - has not been able to be liberated given tachypnea -call Dr. Armendariz for tracheostomy and discuss with family ID -continue abx -ID follow up -on meropenem and fluconazole CVS -monitor hemodynamics Heme -monitor cbc, coags Metabolic -monitor electrolytes, ins/outs, creatinine Alimentary -f/u surgery -nutrition input Neuro -anxiolysis DVT prophylaxis at all times - lovenox TTS 35 min
--- NOTE | 2016-09-13 07:30 | RADIOLOGY REPORT ---
EXAMINATION: XR PORTABLE CHEST CLINICAL INFORMATION: ET tube placement, atelectasis, hypoxia. COMPARISON: 09/12/2016. TECHNIQUE: Portable frontal view of the chest was obtained. FINDINGS: The ET tube is 3.8 cm above the evelio. The right PICC terminates in the SVC. Cardiomediastinal silhouette is within normal limits. The lungs are hypoexpanded. There are moderate bilateral pleural effusions without significant change from prior. Bibasilar airspace opacities unchanged and most likely atelectasis. Right upper quadrant drainage catheter seen. IMPRESSION: ET tube 3.8 cm above the evelio. No significant change in moderate bilateral pleural effusions and underlying atelectasis.
[2016-09-13 08:00] VITALS: BP 120/62
--- NOTE | 2016-09-13 09:59 | PN- General Surgery ---
Surgical Brief Attending Note Brief Attending Note: CT reviewed. reduction in fluid collection ruq. no intervention required. continue drain cares as ordered.
--- NOTE | 2016-09-13 10:14 | PN- Infect Dx ---
Subjective Subjective: Afebrile. She complains of fatigue but offers no other complaints Objective Last 24 Hrs of Vital Signs/I&O Vital Signs Date Time Temp Pulse Resp B/P B/P Pulse O2 O2 Flow FiO2 Mean Ox Delivery Rate 09/14 799 97.3 81 22 120/62 96 Ventilator 45% 09/13 0800 96 Ventilator 45% / 0758 45 06/06 0537 45 06/06 0400 96 Ventilator 45% / 0346 45 /06 0049 45 06/06 0000 97.7 71 20 100/64 95 Ventilator 45% 06/06 0000 96 Ventilator 45% 06/05 2210 45 06/05 2139 88 134/70 06/05 2000 96 Ventilator 45% 06/05 1925 45 06/05 1600 45 06/05 1600 96 Ventilator 45% 06/05 1600 98.0 80 22 110/70 96 Ventilator 45% 06/05 1415 45 06/05 1200 97 Ventilator 45% 06/05 1130 45 Intake & Output / 1600 09/13 0800 06/06 0000 Intake Total 713 504 Output Total 1190 1660 Balance -477 -1156 Intake, IV 24 24 Intake, Tube 629 260 Feeding Intake, Tube 60 220 Irrigant Output, 40 10 Drainage Output, Stool 600 650 Output, Urine 550 1000 Physical Exam Other Physical Findings: She is awake and alert on the ventilator in no acute distress Lungs are clear Heart regular rhythm with no murmur Abdomen is soft, nontender with positive bowel sounds; incision is clean, with no erythema; fibrinous exudate on the inferior aspect of the incision; colostomy with liquid output; right upper quadrant drain with seropurulent fluid, with 30 mL output yesterday and 40 mL overnight Extremities trace edema left lower extremity; PICC in the right upper extremity with no inflammation at the site Fulton catheter remains in place Results Last 24 Hours of Lab Results: Laboratory Tests 09/13 09/12 0345 1720 Chemistry Sodium (137 - 145 mmol/L) 135 L Potassium (3.5 - 5.1 mmol/L) 3.9 Chloride (98 - 107 mmol/L) 101 Carbon Dioxide (22 - 30 mmol/L) 28 Anion Gap (5 - 16) 6 BUN (7 - 17 mg/dL) 9 Creatinine (0.5 - 1.0 mg/dL) 0.4 L Estimated GFR (>60 ml/min) > 60 Glucose (65 - 99 mg/dL) 91 Calcium (8.4 - 10.2 mg/dL) 7.6 L Phosphorus (2.5 - 4.5 mg/dL) 3.8 Magnesium (1.6 - 2.3 mg/dL) 2.0 Total Bilirubin (0.2 - 1.3 mg/dL) 0.3 AST (14 - 36 U/L) 23 ALT (9 - 52 U/L) 33 Albumin (3.5 - 5.0 g/dL) 2.0 L Hematology CBC w Diff NO MAN DIFF REQ NO MAN DIFF REQ WBC (4.8 - 10.8 /CUMM) 15.1 H 16.3 H RBC (4.20 - 5.40 /CUMM) 2.98 L 2.89 L Hgb (12.0 - 16.0 G/DL) 8.9 L 8.7 L Hct (37 - 47 %) 27.1 L 26.1 L MCV (81.0 - 99.0 FL) 91.0 90.3 MCH (27.0 - 31.0 PG) 29.9 30.1 RDW (11.5 - 14.5 %) 16.6 H 16.5 H Plt Count (130 - 400 /CUMM) 693 H 650 H MPV (7.4 - 10.4 FL) 8.4 8.2 Gran % (42.2 - 75.2 %) 84.1 H 84.8 H Lymphocytes % (20.5 - 51.1 %) 6.8 L 7.5 L Monocytes % (1.7 - 9.3 %) 7.4 7.0 Eosinophils % (0 - 5 %) 1.3 0.5 Basophils % (0.0 - 2.0 %) 0.4 0.2 Absolute Granulocytes (1.4 - 6.5 /CUMM) 12.7 H 13.8 H Absolute Lymphocytes (1.2 - 3.4 /CUMM) 1.0 L 1.2 Absolute Monocytes (0.10 - 0.60 /CUMM) 1.1 H 1.1 H Absolute Eosinophils (0.0 - 0.7 /CUMM) 0.2 0.1 Absolute Basophils (0.0 - 0.2 /CUMM) 0.1 0 PUBS MCHC (33.0 - 37.0 G/DL) 32.9 L 33.3 09/12 09/12 1600 1430 Coagulation APTT Cancelled Hematology CBC w Diff Cancelled WBC Cancelled RBC Cancelled Hgb Cancelled Hct Cancelled MCV Cancelled MCH Cancelled RDW Cancelled Plt Count Cancelled MPV Cancelled PUBS MCHC Cancelled Last 24 Hours of [place] Results: No recent cultures Recent Imaging Studies: Chest x-ray September 13 no change in the moderate bilateral pleural effusions and underlying atelectasis CTA of the chest September 12 no evidence of pulmonary embolism; increasing moderate- sized bilateral pleural effusions with complete collapse of the left lower lobe, near complete collapse of the right lower lobe and persistent collapse of the medial segment of the right middle lobe CT of the abdomen and pelvis with oral and IV contrast September 12 reveals persistent anasarca, with persistent pockets of peripherally enhancing fluid within the peritoneal cavity; splenic infarcts unchanged Assessment/Plan Impression: Persistent hypotension, requiring pressors, and respiratory failure, not able to be weaned, with temperatures remaining normal and white blood cell count overall decreased, though still elevated, now 12 days status drainage of a purulent fluid collection from the right upper quadrant, with purulent fluid still draining, and with several additional collections noted on the CT scan, which may warrant drainage. The CT of the chest reveals moderate-sized bilateral pleural effusions and collapse of multiple lobes, which may be impeding her ability to be weaned. She is now 18 days status post Granger's procedure for a perforated sigmoid colon and remains on Meropenem and Fluconazole for a polymicrobial peritonitis, with Clostridium isolated from the initial blood culture, and possible Pseudomonas pneumonia. The recent CT scan continues to reveal possible splenic infarcts, which are of unclear significance. Suggestion: 1. Would consider bilateral thoracenteses 2. Will discuss with IR the possibility of drainage of the collections seen on the CT scan 3. Continue Meropenem and Fluconazole
--- NOTE | 2016-09-13 11:45 | NUR ---
Patient is alert, able to follow commands and shake head yes and no appropriately to questions. Restless and anxious at times. Soft restraints x's [address] Fentanyl gtt infusing at @ 12.5mcg/hr or 3.1mls. SAS 4. NSR on tele monitor. HR= 70-80's. SBP: 110-120's and patient denies chest pain. Bilateral pedal and radial pulses palpable. Remains intubated with a #8 to the left at 21cm. Lungs clear and diminished with a scant amount of white thin secretions noted. Vent settings currently AC 20/550/45/5. O2 sats stable at 92-94%. She was placed on a cpap trail which lasted approx 3 minutes before her O2 sats dropped to 86%, her respiratory rate increased to the 40's, and her HR and BP became elevated. A midline incision is noted- khloe remain intact and there is a small opening to the lwoer postion of the incision which was packed- scant amounts of serosangenous drainage noted. A r. pecutaneous drain remains in place with purulent output noted. Left sided colostomy is draining light brown semi-liquid stool. Stoma is pink and intact with very minimal areas of excoration and irritation noted. OGT in place and Osmolite is infusing at a goal rate of 70mls/hr with 60ml water flushes every 4 hours. Trace generalized edema, +2 left pedal, and +1 right hand edema is noted. Excoriation and denudement noted to the coccyx which is most likely related to patient being restless in bed. ANASTACIA PICC line in place and site is WNL with good blood return to both ports. IV abx per elenier. She currently denies pain and vitals have remained stable. Dr Dorman in to speak with pts sister and plan of care was discussed. Will continue to closely monitor patient.
--- NOTE | 2016-09-13 14:51 | NUR ---
OGT removed by patient and then replaced by this RN. Tube feeds on hold at this time. IR at the bedside for thoracentesis. CXR to be done after procedure. Soft restraints remain in place. Vitals stable. Will continue to closely monitor patient.
[2016-09-13 16:00] VITALS: BP 122/64
--- NOTE | 2016-09-13 16:00 | NUR ---
ASSUMED CARE OF PATIENT, REMAINS RESTLESS CONSTANTLY PULLING AT ANYTHING SHE CAN REACH, UPPER AND LOWER SOFT RESTRAINTS INTACT. PATIENT APPEARS ORIENTED TO SELF, ABLE TO FOLLOW COMMANDS WHEN SHE WANTS TO0. MONITOR NSR WITHOUT ECTOPY, LUNGS DIMINISHED AT BASES AND L APEX CORRELATING WITH NEW PNEUMOTHORAX FOUND ON CHEST XRAY. PATIENT IS VENTILATED AND OXYGEN SATS MAINTAINING ABOVE 92%. BELLY SOFT NON TENDER, COLOSTOMY L ABDOMEN FUNCTIONING WELL AND PERC DRAIN TO L ABDOMEN INTACT. MOVES ALL EXTREMITIES. TOBAR INTACT DRAINING CLEAR URINE. TO CAT SCAN FOR CHEST TUBE INSERTION.
--- NOTE | 2016-09-13 16:13 | RADIOLOGY REPORT ---
EXAMINATION: XR PORTABLE CHEST CLINICAL INFORMATION: Follow-up pleural effusion status post thoracentesis. Confirm orogastric tube placement. COMPARISON: Chest radiograph 09/13/2016. TECHNIQUE: Portable frontal view of the chest was obtained. FINDINGS: The tip of the endotracheal tube terminates 5 cm above the evelio. The tip of the enteric tube terminates within the stomach. Cardiac leads overlie the chest. There is a right upper extremity PICC remains unchanged with its tip located within the superior vena cava. There is a new left apical pneumothorax status post thoracentesis. Trace fluid layers within the left costophrenic recess. The size of the right pleural effusion is unchanged. There is no new consolidative disease. The cardiac silhouette and upper mediastinal contours are normal. No acute osseous finding. IMPRESSION: There is a new left apical pneumothorax status post thoracentesis. There is trace residual fluid layering within left costophrenic recess. The size of a right pleural effusion is unchanged. The distal tip of the enteric tube terminates within the stomach. This critical result was discussed with Dr Cartagena at 09/13/2016 4:07 PM and it was ascertained that the content and urgency of the report was understood at the time of direct communication.
--- NOTE | 2016-09-13 17:59 | ULTRASOUND REPORT ---
PROCEDURE: Thoracentesis CLINICAL INFORMATION: Pleural Effusion COMPARISON: Same day chest x-ray and chest CTA 09/12/2016 TECHNIQUE: direct ultrasound guided thoracentesis using a 5 [place] catheter. FINDINGS: Informed consent was obtained from the patient's sister prior to the procedure. During this process, the procedure and alternatives were explained, along with the intended outcome and benefits. The risks of the procedure, as well as the risk of not doing the procedure, was discussed. The patient's sister was given the opportunity to ask questions regarding the procedure . A consent form which documents this discussion was placed in the medical record. Procedure was performed in the ICU secondary to patient's critical status. Following informed consent a timeout procedure was performed. Ultrasound evaluation of the chest for pleural fluid was performed. Small bilateral pleural effusions were noted. The decision was made to perform a left-sided thoracentesis today after consultation with ICU attending. Using standard interventional and sterile techniques, lidocaine was used to anesthetize the region. A 5 [place] Yueh catheter was introduced into the left pleural fluid using standard safety needle technique. Approximately 650 mL of light yellow fluid was removed into the Vacutainer bottles. The catheter was then removed. Good hemostasis was achieved. Sample was sent for requested analysis as clinically indicated. The patient tolerated the procedure well. A sterile dressing was placed. Follow-up chest x-ray demonstrated a new left-sided pneumothorax. A chest tube was subsequently placed which is dictated separately. IMPRESSION: Ultrasound-guided left-sided thoracentesis yielding 650 mL of fluid.
--- NOTE | 2016-09-13 18:00 | NUR ---
RETURNED FROM CAT SCAN WITH L ANTERIOR CHEST TUBE ATTACHED TO WATER SEAL DRAINAGE. REPEAT CXR DONE WITH IMPROVEMENT OF THE PNEUMOTHORAX. PATIENT REMAINS ALERT WITH STABLE VITAL SIGNS. TOLERATED PROCEDURE WELL, NO PAIN AT THIS TIME. PATIENT DID RECEIVE FENTANYL 50MCG DURING PROCEDURE.
--- NOTE | 2016-09-13 18:02 | CT SCAN REPORT ---
PROCEDURE: CT Guided Chest Tube Placement. INDICATION: Left-sided pneumothorax status post thoracentesis. ACCESS: 5Fr. One-Step Needle REQUESTING PRACTITIONER: GHANSHYAM GILMORE MD Interventional Radiologist: Marlon Glasgow M.D. CONSENT: Informed consent was obtained from the patient's sister prior to the procedure. During this process, the procedure and potential alternatives were explained along with the intended outcome and benefits. The risks of the procedure, including the possibility of an unsuccessful procedure as well as the risk of not doing the procedure were discussed. The patient's sister was given the opportunity to ask any questions regarding the procedure. A consent form which documents this discussion was placed in the medical record. MEDICATIONS: 10ml 1% lidocaine. TECHNIQUE/FINDINGS: Appropriate pre-procedure medical history and imaging studies were reviewed. The patient was placed supine on the scanner table. A timeout procedure was performed. CT images of the left thorax were obtained to localize a moderate pneumothorax. Images were permanently saved to the record. An area of the patient's left chest was prepped and draped in the standard sterile fashion. 10 mL of 1% lidocaine was used to obtain local anesthesia of the skin and deeper tissues. A standard small bore needle was introduced to sample air and demonstrated a safe access route. A 5 Malaysian one step needle was then used to access the pleural cavity. A guidewire was then placed through the introducer into the chest. The access site was then sequentially dilated using dilators sized 8 Fr and 10 Fr . A 10 Fr. nonlocking catheter was then advanced over the wire into the chest cavity. The wire was removed and the catheter was secured to the skin with a single suture and a sterile dressing was placed over the site. After aspirating approximately 300 mL of air, imaging demonstrated near complete resolution of left-sided pneumothorax. The catheter was then connected to a closed chest drainage system. The patient tolerated the procedure well without evidence of complications. IMPRESSION: Successful Left CT-guided chest tube placement as described. RECOMMENDATIONS: A postprocedure chest x-ray was ordered and will be dictated separately.
--- NOTE | 2016-09-13 18:33 | RADIOLOGY REPORT ---
EXAMINATION: CHEST 1 VIEW CLINICAL INFORMATION: Left-sided chest tube placement. Evaluate for pneumothorax. COMPARISON: Same day chest CT. TECHNIQUE: An AP view of the chest is provided. FINDINGS: A left pleural pigtail catheter is in place with the tip overlying the left apex. No residual pneumothorax is demonstrable. The cardiac silhouette is stable. The endotracheal tube, enteric tube and right central venous line are in unchanged position. In addition, there is a pigtail catheter within the right upper quadrant. There are stable right greater than left bilateral pleural effusions with associated bibasilar airspace disease. The osseous structures are stable. IMPRESSION: Lines and tubes in place as stated above. No residual pneumothorax demonstrable. Right greater than left bilateral pleural effusions with associated airspace disease.
--- NOTE | 2016-09-13 21:36 | RADIOLOGY REPORT ---
EXAMINATION: XR PORTABLE CHEST CLINICAL INFORMATION: Status post left-sided chest tube placement. COMPARISON: Chest x-ray 09/13/2016 at 6:15 PM. TECHNIQUE: Portable frontal view of the chest was obtained. FINDINGS: Allowing for differences in technique, patient positioning and aeration of the lungs, single AP view of the chest demonstrates no significant interval changes in the appearance of the chest. There is stable coarse and positioning of the left-sided pleural drainage catheter, which is visualized oriented towards the left lung apex. No pneumothorax is identified. Redemonstrated are bilateral pleural effusions, right greater than left with associated bibasilar airspace opacification which may reflect atelectasis. Superimposed infection is not excluded in the appropriate clinical setting. There is a right upper extremity PICC terminating within the mid SVC. An endotracheal tube terminates approximately 5.1 cm above the level of the evelio and is unchanged in position. An enteric catheter descends below the level of the diaphragm and off the field of view. IMPRESSION: No significant interval changes in the appearance of the chest. Stable course and positioning of support devices, as noted above. No recurrent pneumothorax. Stable bilateral pleural effusions, right greater than left.
[2016-09-14] VITALS: BP 95/50
[2016-09-14 03:00] LABS: ABSOLUTE BASOPHIL COUNT 0 /CUMM (0.0-0.2); ABSOLUTE EOSINOPHIL COUNT 0.1 /CUMM (0.0-0.7); ABSOLUTE LYMPH COUNT 1.1 /CUMM (1.2-3.4); BASOPHIL % 0.1 % (0.0-2.0); EOSINOPHIL % 0.5 % (0-5); GRANULOCYTE % 86.1 % (42.2-75.2); HEMATOCRIT 27.6 % (37-47); MEAN CORPUSCULAR HGB 29.6 PG (27.0-31.0); MEAN CORPUSCULAR VOLUME 89.6 FL (81.0-99.0); PLATELET COUNT 772 /CUMM (130-400); RBC DISTRIBUTION WIDTH 16.1 % (11.5-14.5); RED BLOOD CELL CT 3.08 /CUMM (4.20-5.40); WHITE BLOOD CELL COUNT 15.1 /CUMM (4.8-10.8)
--- NOTE | 2016-09-14 06:37 | NUR ---
11-7 SHIFT NOTE 0000 PATIENT RECEIVED ALERT, SEEN TO MOVE ALL 4 EXTREMITIES WITH EQUAL STRENGTH BUT DOES NOT FOLLOW COMMANDS DIRECTLY, 4 POINT SOFT RESTRAINTS IN PLACE FOR SAFETY- WHEN RESTRAINTS RELEASED PATIENT WILL PULL AT ANY LINE, ETT, DRAIN THAT SHE CAN REACH, ETT TO VENTILATOR AT 50% FIO2- CONTINUOUS O2 SAT 93 TO 94%, BREATHE SOUNDS WITH SCATTERED RHONHI WHICH CLEARS WITH ETS OF WHITE SECRETIONS PRN AND DIMINISHED BREATHE SOUNDS AT BOTH BASES, ABDOMEN SOFT, +BS, COLOSTOMY STOMA PINK-LIGHT BROWN STOOL AND FLATUS NOTED, MIDLINE STABLE LINE CLEAN, DRY AND HEALING EXCEPT FOR LOWER END WHICH IS COVERED BY CLEAN, DRY DRESSING, OGT IN PLACE- HOB ELEVATED, TOLERATING TF WELL, GASTRIC RESIDUAL CHECK 5ML, RUQ DRAIN INTACT AND TO GRAVITY DRAINAGE, LEFT ANTERIOR PIG-TAIL CT INTACT AND TO THORASEAL ON WATER SEAL, NO DRAINAGE NOTED, DRESSING INTACT-NO PALPABLE CREPITUS, APPLICATION SPEC SINUS WITHOUT ECTOPY-HEART RATE 70 TO 80'S/MIN, TOBAR TO GRAVITY DRAINAGE 0200 TEMPERATURE NOW 101.6- DR PEREZ NOTIFIED AND AT BEDSIDE, PATIENT HAS PULLED OFF COLOSTOMY DRAINAGE BAG- SKIN CLEANSED, DRESSING TO LOWER ABDOMEN CHANGED AND PURULENT DRAINAGE NOTED- BC X3, U/C, SPT CULTURE AND CULTURE OF ABDOMINAL WOOUND DONE AND TO LAB 0230 PRN IV TYLENOL GIVEN FOR ELEVATED TEMPERATURE 0400 BP 65/37, MANUAL 70/56- JAQUAN ESTEBAN AND ANA NOTIFIED AND IN AT BEDSIDE, UO ONLY 20 ML THIS HOUR- NO CHANGES IN ORDERS GIVEN AT THIS TIME- SEE FREQUENT VS SHEET 0500 BP REMAINS 80'S/SYSTOLIC- DR PEREZ MADE AWARE- NS BOLUS HUNG IV 0530 BP NOW 0630 PORTABLE CXR DONE, BP 110/SYSTOLIC, CLOSE OBSERVATION MAINTAINED, AWAITING AM MD ROUNDS
--- NOTE | 2016-09-14 07:18 | PN- Resident CRCU ---
Subjective HPI/CRCU Issues: Overnight she Spiked fever up to 101.6 and dropped BP down to 65/37, for which Patient received the 500th bolus around 5 AM. Now patient is afebrile with a normal pressure. Patient is alert and following commands. She denies any current complaints. 24 Hour Events: MAXIMUM TEMPERATURE 101.6 Heartrate 73-92 with average being 82 Blood pressure low as 65/37 highest 140/72 Patient is on ventilator with a saturation being on lower 90s Yesterday I/Os 1968/1545 (positive) Total balance to date 06018/66152 (positive) Left chest tube no fluid being drained Left colostomy had a clear mucous secretion On fentanyl drip 3.1 Objective Vital Signs & I&O Last 8 Hrs of Vitals and I&O: Intake & Output 09/14 1600 Intake Total 905 Output Total 1860 Balance -955 Intake, IV 225 Intake, Tube 560 Feeding Intake, Tube 120 Irrigant Output, Chest 0 Tube Drainage Output, 0 Drainage Output, Stool 200 Output, Urine 1660 Exam General Appearance: no apparent distress, alert, awake, intubated Head: atraumatic, normal appearance Respiratory: lungs clear Cardiovascular: regular rate/rhythm Gastrointestinal: normal bowel sounds, soft, non-tender Extremities: +1 LE edema Cranial Nerves: PERRL, strength 5/5 in UE bilaterally and 4/5 on LE bilaterally Skin: surgical khloe placed in the midabdomen line. Mild collection of pus at the lower edge of the surgical incision. no erythema, warmth or tenderness around the pus collection Other Physical Findings: has chest tube on the left side Weaning Parameters NIF: 42 Minute Volume: 6.47 Resp rate: 25 Vt: 260 Heart Rate: 74 Weaning Schedule Start Time: 0900 Minute Volume: 11.1 Resp Rate: 20 Vt: 500 Heart Rate: 77 End Time: 0909 Minute Volume: 12.5 Resp Rate: 44 Vt: 437 Heart Rate: 78 Start Time: 1310 Minute Volume: 7.9 Resp Rate: 25 Vt: 388 Heart Rate: 86 End Time: 1350 Minute Volume: 8.8 Resp Rate: 37 Vt: 280 Heart Rate: 89 Current Medications: Current Medications Sig/Ry Start time Last Medication Dose Route Stop Time Status Admin Acetaminophen 1,000 MG Q6P PRN 08/27 0230 AC 09/14 N/A 1 UNIT IV 0235 Acetylcysteine 2 ML BID 09/06 1000 AC 09/13 INH 2000 Albuterol Sulfate 3 ML EVERY 4 HRS/AWAKE 09/01 2000 AC 09/13 INH 2000 Albuterol Sulfate 3 ML Q4H PRN 08/27 1000 AC 08/28 INH 1309 Chlorhexidine 15 ML TID 08/29 1000 AC 09/13 Gluconate PO 2148 Enoxaparin Sodium 40 MG DAILY 09/03 1000 AC 09/13 SC 1029 Fentanyl Citrate 1,000 MCG Q24H 09/11 0830 AC 09/13 Dextrose/Water 250 ML IV 0222 Fluconazole 400 MG Q24 09/14 1000 DC Sodium Chloride 200 ML IV Fluconazole 400 MG Q24 09/13 1030 AC 09/13 Sodium Chloride 200 ML IV 1110 Lidocaine 1 ML .STK-MED ONE 09/13 1755 DC ID 09/13 175 Lorazepam 2 MG Q3P PRN 09/07 0800 AC 09/13 IV 1222 Magnesium Oxide 400 MG DAILY 09/12 1000 AC 09/13 PO 1028 Meropenem 1 GM IQ8 09/01 1600 AC 09/14 IV 0012 Norepinephrine 8 MG Q24H 09/12 0030 AC 09/12 Sodium Chloride 250 ML IV 0101 Pantoprazole Sodium 40 MG DAILY 08/27 1000 AC 09/13 IV 1029 Potassium Chloride 20 MEQ DAILY 09/12 1000 AC 09/13 PO 1029 Propranolol HCl 10 MG AT BEDTIME 09/07 2200 AC 09/13 PO 2148 Sertraline HCl 50 MG DAILY 09/07 1301 AC 09/13 PO 1028 Sodium Chloride 500 ML BOLUS ONE 09/14 0515 DC 09/14 IV 09/14 0614 0509 Trazodone HCl 200 MG AT BEDTIME 09/07 2200 AC 09/13 PO 2148 Impression/Plan Impression/Problem List Impression: Ms. Camahco is a 60 year old female with PMH anxiety, depression, COPD , prior episode of severe clostridium difficile infection in 2016, tobacco abuse and gastritis who presented to the [place] ED after one week of altered mental status, decreased oral intake and possible withdrawl symptoms as her clonazepam was being titrated off per doctor instructions. She was found to be hypotensive, febrile and altered while in the [place] ED. Neurological Metabolic encephalopathy on admission, likely secondary to severe sepsis from sigmoid perforation/peritonitis. * Alert and follow commands * Strength 5/5 on UE B/L and 4/5 on LE B/L * Sedative meds Fentanyl drip 3.1 * Psych meds including trazodone, propranolol and sertraline daily * CT head negative for acute intracranial pathology Plan 1.NTD Cardiovascular Sinus tachycardia with T wave changes on admission(resolved).ACS was excluded. Echo showed normal global LV function without wall motion abnormalities and normal pulm artery systolic pressure Over last 24 hour * HR 73-92 with average of 82 * BP low as 65/37 highest 140/72 * Chest tube has 0 output Medications * Propranolol 10 mg at bedtime Plan 1.continue monitor vitals Respiratory Patient initially placed on non-rebreather but was transitioned to high flow nasal cannula/ BiPAP due to tachypnea/apparent respiratory distress. Patient tolerated BiPAP well but was intubated for Ho's procedure, POD# 19, patient remains intubated since than. Noted bilateral pleural effusions on CT chest, patient s/p thoracentesis on 09/02 and again on 09/13. the thoracentesis done on 09/13 was complicated by pneumothorax for which chest tube was placed in the left lung. CTA 2 days ago ruled out PE as a cause of increased O2 requirements. * today lungs are clear to auscultation with no additional sounds * Ventilator settings -Mode: VCV-A/C -FiO2: 50% -TV: 550 -Patient's respiratory rate:22 -Ventilator's respiratory rate 20 -PEEP: 5 -Peak airway resistance 22.4 * Oxygen saturation is on lower 90s * Chest x-ray results this AM: Tubes/lines are in satisfactory position. Pulmonary medications * Albuterol Plan 1.TRC/Nebs 2.Aspiration precautions 3.We will reduce fio2 as tolerated 4.we will try to wean off ventilator as possible 5.cont chest tube to atrium water seal until we assist the need for tracheostomy (has risk of pneumothorax) 6.tracheostomy evaluation with Dr. Portillo Renal Had SIERRA on presentation Likely prerenal in the setting of severe sepsis. Kidney function is back to normal after IV hydration. * last 24 hours I/Os 1967/1544 (positive) * Total balance to date [id number] (positive) * Today Cr 0.5 and BUN 11 Plan 1.Continue monitoring renal function 2.One time 20 mg IV Lasix Fluids, Electrolytes, and Nutrition (FEN) * No IV fluid * Na 136, K 4.3, corrected Ca 9.5 and Mg is 2. * Tube feeding, Albumin is 2.2 Plan 1.Repeat chemistry daily 2.will oreder prealbumin for tomorrow Infectious Diseases Patient presented with fever, leukocytosis, hypotension and tachycardia secondary to peritonitis from perforated sigmoid colon with abscess formation, S /P Harmann's procedure with Dr. Armendariz. Blood cultures showed no growth, lower respiratory culture grew pseudomonas (resistent to zosyn) and culture from OR grew E.Coli, alpha/beta strep and brandon. She was placed on IV fluconazole and IV meropenem. IR placed one RUQ drain and one LLQ drain to drain this fluid. LLQ was subsequently taken out but the RUQ drain remains in place. * Tmax 101.6 * current Temp is 98 * WBCs 15.1 jsut like yesterday * On Meropenem and Fluconazole Plan 1.Continue to monitor output from the right upper quadrant catheter 2.Follow-up recent cultures 3.Continue Meropenem and Fluconazole Hematology Patient given 5 U PRBC total since admission, with last one being yesterday. Initial had thrombocytopenia likely 2/2 coagulopathly from sepsis, 4Ts score placed patient at low risk for HIT (<5%) so SC lovenox was Resumed on 09/02 * H&H 9.1 & 27.6 * Platelet count 772 * INR on 09/10 was 1.3 Plan 1.Follow up CBC daily, monitor for bleeding FULL CODE DVT prophylaxis: ALPS + SC lovenox Ulcer prophylaxis: Pantoprazole Pain: Fentanyl drip Problem List: 1. Status post Ho's procedure Pain Ratin Tomorrow's Labs & Rationales: ICU bundle, CBC Plan DVT/Prophylaxis: mechanical, pharmacological Code Status: Full Code
[2016-09-14 08:00] VITALS: BP 104/60
--- NOTE | 2016-09-14 08:15 | RADIOLOGY REPORT ---
EXAMINATION: XR PORTABLE CHEST CLINICAL INFORMATION: Left chest tube placement. Evaluate ET tube and OG tube. COMPARISON: CXR from 09/13/2016 TECHNIQUE: Portable frontal view of the chest was obtained. FINDINGS: The right arm peripherally inserted catheter terminates in the region of the mid SVC. The tip of the endotracheal tube is 4.8 cm above the evelio. An enteric tube extends below the diaphragm, into the stomach and beyond the [id number]. A left pleural drainage catheter is in stable position in the medial aspect of the left apex. No pneumothorax. Cardiac silhouette is normal in size. There is apparent bronchial wall thickening in both lungs. Persistent small pleural effusions and bibasilar opacities without significant change from the prior radiograph. IMPRESSION: 1. Tubes/lines are in satisfactory position, including the pleural drainage catheter at the medial left apex. No pneumothorax. 2. Small pleural effusions and bibasilar opacities/atelectasis remain similar in appearance compared to 09/13/2016. 3. Apparent bronchial wall thickening in both lungs could reflect presence of active airway inflammation.
--- NOTE | 2016-09-14 10:29 | PN- Infect Dx ---
Subjective Subjective: MAXIMUM TEMPERATURE 101.6. Events of yesterday noted with a left thoracentesis performed, with removal of 650 mL of clear yellow fluid, but complicated by a pneumothorax, requiring a chest tube. She apparently pulled out her OG tube and colostomy bag yesterday with possible withdrawal of the right upper quadrant catheter as well. At present she offers no complaints. Objective Last 24 Hrs of Vital Signs/I&O Vital Signs Date Time Temp Pulse Resp B/P B/P Pulse O2 O2 Flow FiO2 Mean Ox Delivery Rate 09/14 0944 40 09/14 0829 50 09/14 0612 50 / 0400 94 Ventilator 50% 09/14 0355 50 / 0345 98.1 09/14 0235 101.6 09/14 0039 50 / 0016 10.9 76 20 95/50 06/ 0000 93 Ventilator 50% / 0000 100.9 76 20 95/50 93 Ventilator 50% 09/13 2241 45 / 2200 92 Ventilator 45% 09/13 2148 92 22 112/60 09/13 1957 45 09/13 1602 45 09/13 1600 92 Ventilator 45% 09/13 1600 98.4 82 20 122/64 92 Ventilator 45% 09/13 1331 45 /06 1200 94 Ventilator 45% 09/13 1052 45 Intake & Output 09/14 1600 09/14 0800 06/ 0000 Intake Total 973 365 Output Total 395 570 Balance 578 -205 Intake, IV 337 25 Intake, Tube 516 280 Feeding Intake, Tube 120 60 Irrigant Output, Chest 0 Tube Drainage Output, 10 Drainage Output, Other 20 Output, Stool 50 100 Output, Urine 325 460 Patient 146 lb Weight Weight Bed scale Measurement Method Physical Exam Other Physical Findings: She appears comfortable in no acute distress Lungs are clear Chest chest tube in place on the left, with no inflammation at the site Heart regular rhythm with no murmur Abdomen is soft, nontender with positive bowel sounds; incision with fibrinous exudate at the inferior aspect, with no erythema; right upper quadrant catheter remains in place, with sutures intact, with 50 mL output yesterday and none recorded overnight Extremities no cyanosis, clubbing or edema; PICC in the right upper extremity with no inflammation at the site [place] catheter remains in place Results Last 24 Hours of Lab Results: Laboratory Tests 09/14 09/13 09/13 0205 1450 1450 Chemistry Sodium (137 - 145 mmol/L) 136 L Potassium (3.5 - 5.1 mmol/L) 4.3 Chloride (98 - 107 mmol/L) 102 Carbon Dioxide (22 - 30 mmol/L) 23 Anion Gap (5 - 16) 11 BUN (7 - 17 mg/dL) 11 Creatinine (0.5 - 1.0 mg/dL) 0.5 Estimated GFR (>60 ml/min) > 60 Glucose (65 - 99 mg/dL) 96 Calcium (8.4 - 10.2 mg/dL) 8.1 L Phosphorus (2.5 - 4.5 mg/dL) 3.9 Magnesium (1.6 - 2.3 mg/dL) 2.0 Total Bilirubin (0.2 - 1.3 mg/dL) 0.3 AST (14 - 36 U/L) 28 ALT (9 - 52 U/L) 43 Albumin (3.5 - 5.0 g/dL) 2.2 L Hematology CBC w Diff MAN DIFF ORDERED WBC (4.8 - 10.8 /CUMM) 15.1 H RBC (4.20 - 5.40 /CUMM) 3.08 L Hgb (12.0 - 16.0 G/DL) 9.1 L Hct (37 - 47 %) 27.6 L MCV (81.0 - 99.0 FL) 89.6 MCH (27.0 - 31.0 PG) 29.6 RDW (11.5 - 14.5 %) 16.1 H Plt Count (130 - 400 /CUMM) 772 H MPV (7.4 - 10.4 FL) 8.0 Gran % (42.2 - 75.2 %) 86.1 H Lymphocytes % (20.5 - 51.1 %) 7.0 L Monocytes % (1.7 - 9.3 %) 6.3 Eosinophils % (0 - 5 %) 0.5 Basophils % (0.0 - 2.0 %) 0.1 Absolute Granulocytes (1.4 - 6.5 /CUMM) 13.0 H Segmented Neutrophils (42.2 - 75.2 %) 80 H Absolute Lymphocytes (1.2 - 3.4 /CUMM) 1.1 L Lymphocytes (20.5 - 51.1 %) 7 L Monocytes (1.7 - 9.3 %) 12 H Absolute Monocytes (0.10 - 0.60 /CUMM) 1.0 H Eosinophils (0 - 5.0 %) 1 Absolute Eosinophils (0.0 - 0.7 /CUMM) 0.1 Absolute Basophils (0.0 - 0.2 /CUMM) 0 Platelet Estimate (ADEQUATE) INCREASED Polychromasia 1+ Hypochromic-Microcytic 1+ Anisocytosis 1+ PUBS MCHC (33.0 - 37.0 G/DL) 33.0 Other Body Source Fluid WBC (0 - 5 /CUMM) 168 H Fld Total RBCs Counted (0 /CUMM) 1167 H Pleural pH (PH) 7.55 Urines Urinalysis MOD H Urine Color (YEL,AMB,STR) YEL Urine Clarity (CLEAR) CLEAR Urine pH (5.0 - 8.0) 8.0 Ur Specific [place] (1.001 - 1.035) 1.015 Urine Protein (NEG,<30 MG/DL) 30 H Urine Ketones (NEG) NEG Urine Nitrite (NEG) NEG Urine Bilirubin (NEG) NEG Urine Urobilinogen (0.1 - 1.0 EU/dl) 0.2 Ur Leukocyte Esterase (NEG) NEG Ur Microscopic SEDIMENT EXAMINED Urine RBC (0 - 5 /HPF) FEW H Urine WBC (0 - 2 /HPF) 1-3 H Ur Epithelial Cells (NONE,FEW) FEW Urine Bacteria (NEG/NONE) MOD H Hyaline Casts (0/LPF) RARE H Urine Mucus (FEW,NONE) MOD H Urine Hemoglobin (NEG) NEG Urine Glucose (N MG/DL) NEG 09/13 1450 Hematology Lymphocytes (%) 13 % Normal PMNs (%) 6 Misc Hematology Test (%) Miscellaneous Phlebotomy Draw Site LT.[email or web address] Other Body Source Fluid Glucose (mg/dL) 93 Fluid Total Protein (g/dL) < 2.0 Fluid Albumin (g/dL) < 1.0 Fluid LDH (U/L) 240 Fluid Amylase (U/L) < 30 Last 24 Hours of [place] Results: Blood cultures 2 September 14 negative so far Urine culture September 14 pending Sputum culture September 14 pending with gram stain revealing rare white blood cells and no organisms Left pleural fluid culture September 13 negative Recent Imaging Studies: Chest x-ray September 14, personally reviewed, reveals decreased density on the left; right lower lobe density unchanged Assessment/Plan Impression: Appears relatively stable though remains on pressors for intermittent hypotension and is still ventilator dependent status post thoracentesis yesterday, with removal of 650 mL of transudative fluid, complicated by a pneumothorax, for which a chest tube has been placed. She did spike a fever overnight though white blood cell count is unchanged, with no evidence of any new infectious process and with repeat cultures pending. She remains on Meropenem and Fluconazole now 13 days status drainage of a purulent fluid collection from the right upper quadrant, with the recent CT scan of the abdomen and pelvis not revealing any new drainable collections and with the catheter, at least on yesterday's scan, in place. She is now 19 days status post Granger's procedure for a perforated sigmoid colon for a polymicrobial peritonitis, with Clostridium isolated from the initial blood culture. The recent CT scan continues to reveal possible splenic infarcts, which are of unclear significance. Suggestion: 1. Continue to monitor output from the right upper quadrant catheter 2. Follow-up recent cultures 3. Continue Meropenem and Fluconazole
--- NOTE | 2016-09-14 10:52 | PN- CRCU ---
Subjective HPI/Critical Care Issues: pt seen and examined cpap trials with psv of 10 tachypnea, significant anxiety despite ativan desaturation and hypertension events noted s/p pigtail with chest tube Objective Current Medications: Current Medications Sig/Ry Start time Last Medication Dose Route Stop Time Status Admin Acetaminophen 1,000 MG .STK-MED ONE 09/14 0231 DC IV 09/14 0232 Acetaminophen 1,000 MG Q6P PRN 08/27 0230 AC 09/14 N/A 1 UNIT IV 0235 Acetylcysteine 2 ML BID 09/06 1000 AC 09/14 INH 0836 Albuterol Sulfate 3 ML EVERY 4 HRS/AWAKE 09/01 2000 AC 09/14 INH 0836 Albuterol Sulfate 3 ML Q4H PRN 08/27 1000 AC 08/28 INH 1309 Chlorhexidine 15 ML TID 08/29 1000 AC 09/14 Gluconate PO 1028 Enoxaparin Sodium 40 MG DAILY 09/03 1000 AC 09/14 SC 1028 Fentanyl Citrate 1,000 MCG Q24H 09/11 0830 AC 09/13 Dextrose/Water 250 ML IV 0222 Fluconazole 400 MG Q24 09/14 1000 DC Sodium Chloride 200 ML IV Fluconazole 400 MG Q24 09/13 1030 AC 09/14 Sodium Chloride 200 ML IV 1028 Furosemide 20 MG ONCE ONE 09/14 1045 DC IV 09/14 1046 Lidocaine 1 ML .STK-MED ONE 09/13 1755 DC ID 09/13 1756 Lorazepam 2 MG Q3P PRN 09/07 0800 AC 09/14 IV 1028 Magnesium Oxide 400 MG DAILY 09/12 1000 AC 09/14 PO 1028 Meropenem 1 GM IQ8 09/01 1600 AC 09/14 IV 0842 Norepinephrine 8 MG Q24H 09/12 0030 AC 09/12 Sodium Chloride 250 ML IV 0101 Pantoprazole Sodium 40 MG DAILY 08/27 1000 AC 09/14 IV 1028 Potassium Chloride 20 MEQ DAILY 09/12 1000 AC 09/14 PO 1028 Propranolol HCl 10 MG AT BEDTIME 09/07 2200 AC 09/13 PO 2148 Sertraline HCl 50 MG DAILY 09/07 1301 AC 09/14 PO 1028 Sodium Chloride 500 ML BOLUS ONE 09/14 0515 DC 09/14 IV 09/14 0614 0509 Trazodone HCl 200 MG AT BEDTIME 09/07 2200 AC 09/13 PO 2148 Vital Signs & I&O Last 24 Hrs of Vitals and I&O: Vital Signs Date Time Temp Pulse Resp B/P B/P Pulse O2 O2 Flow FiO2 Mean Ox Delivery Rate 09/14 0944 40 / 0829 50 /07 0612 50 /07 0400 94 Ventilator 50% / 0355 50 / 0345 98.1 / 0235 101.6 /07 0039 50 / 0016 10.9 76 20 95/50 06/07 0000 93 Ventilator 50% 06/ 0000 100.9 76 20 95/50 93 Ventilator 50% / 2241 45 / 2200 92 Ventilator 45% 09/13 2148 92 22 112/60 09/13 1957 45 / 1602 45 / 1600 92 Ventilator 45% 09/13 1600 98.4 82 20 122/64 92 Ventilator 45% 09/13 1331 45 /06 1200 94 Ventilator 45% 09/13 1052 45 Intake & Output / 1600 09/14 0800 06/ 0000 Intake Total 973 365 Output Total 395 570 Balance 578 -205 Intake, IV 337 25 Intake, Tube 516 280 Feeding Intake, Tube 120 60 Irrigant Output, Chest 0 Tube Drainage Output, 10 Drainage Output, Other 20 Output, Stool 50 100 Output, Urine 325 460 Patient 146 lb Weight Weight Bed scale Measurement Method Exam Other Physical Findings: gen awake, mild distress on cpap heent ett cvs s1, s2 lungs transmitted, rare rhonchi abd soft, dressings intact ext without edema Results Last 24 Hrs of Lab Results: Laboratory Tests 09/14/16 0205: Anion Gap 11, Estimated GFR > 60, Glucose 96, Calcium 8.1 L, Phosphorus 3.9, Magnesium 2.0, Total Bilirubin 0.3, AST 28, ALT 43, Albumin 2.2 L, CBC w Diff MAN DIFF ORDERED, RBC 3.08 L, MCV 89.6, MCH 29.6, RDW 16.1 H, MPV 8.0, Gran % 86.1 H, Lymphocytes % 7.0 L, Monocytes % 6.3, Eosinophils % 0.5, Basophils % 0.1, Absolute Granulocytes 13.0 H, Segmented Neutrophils 80 H, Absolute Lymphocytes 1.1 L, Lymphocytes 7 L, Monocytes 12 H, Absolute Monocytes 1.0 H , Eosinophils 1, Absolute Eosinophils 0.1, Absolute Basophils 0, Platelet Estimate INCREASED, Polychromasia 1+, Hypochromic-Microcytic 1+, Anisocytosis 1+ , PUBS MCHC 33.0, Urinalysis MOD H, Urine Color YEL, Urine Clarity CLEAR, Urine pH 8.0, Ur Specific [employer] 1.015, Urine Protein 30 H, Urine Ketones NEG, Urine Nitrite NEG, Urine Bilirubin NEG, Urine Urobilinogen 0.2, Ur Leukocyte Esterase NEG, Ur Microscopic SEDIMENT EXAMINED, Urine RBC FEW H, Urine WBC 1-3 H, Ur Epithelial Cells FEW, Urine Bacteria MOD H, Hyaline Casts RARE H, Urine Mucus MOD H, Urine Hemoglobin NEG, Urine Glucose NEG 09/13/16 1450: Pleural pH 7.55 09/13/16 1450: Fluid WBC 168 H, Fld Total RBCs Counted 1167 H 09/13/16 1450: Lymphocytes 13, % Normal PMNs 6, Misc Hematology Test , Phlebotomy Draw Site LT.[email or web address], Fluid Glucose 93, Fluid Total Protein < 2.0, Fluid Albumin < 1.0, Fluid LDH 240, Fluid Amylase < 30 Impression/Plan Impression/Plan Impression/Plan: Impression 60 year old woman * hypoxemic respiratory failure * pneumothorax post thoracentesis * s/p pericolic abscess s/p drainage and sigmoid colectomy with end colostomy Plan Respiratory -TRC/Nebs -aspiration precautions -reduce fio2 as tolerated -CPAP/T-piece trials -cont chest tube to [facility] water seal -tracheostomy evaluation with Dr. Portillo ID -f/u ID recommendations CVS -monitor hemodynamics Heme -monitor cbc, coags Metabolic -cont hydration Alimentary -aspiration precautions Neuro -anxiolysis DVT prophylaxis at all times - lovenox TTS 35 min Code Status: Full Code
[2016-09-14 16:00] VITALS: BP 153/69
[2016-09-15] VITALS: BP 128/73
[2016-09-15 05:42] LABS: ABSOLUTE BASOPHIL COUNT 0.1 /CUMM (0.0-0.2); ABSOLUTE EOSINOPHIL COUNT 0.2 /CUMM (0.0-0.7); ABSOLUTE GRANULOCYTE CT 13.7 /CUMM (1.4-6.5); ABSOLUTE LYMPH COUNT 1.4 /CUMM (1.2-3.4); ABSOLUTE MONOCYTE COUNT 1.2 /CUMM (0.10-0.60); BASOPHIL % 0.3 % (0.0-2.0); EOSINOPHIL % 1.2 % (0-5); GRANULOCYTE % 82.7 % (42.2-75.2); HEMATOCRIT 26.2 % (37-47); MEAN CORPUSCULAR HGB 29.7 PG (27.0-31.0); MEAN CORPUSCULAR HGB CONC 32.6 G/DL (33.0-37.0); MEAN CORPUSCULAR VOLUME 91.1 FL (81.0-99.0); PLATELET COUNT 768 /CUMM (130-400); RBC DISTRIBUTION WIDTH 15.9 % (11.5-14.5); RED BLOOD CELL CT 2.87 /CUMM (4.20-5.40); WHITE BLOOD CELL COUNT 16.5 /CUMM (4.8-10.8)
[2016-09-15 05:44] LABS: PT 13.2 SEC (9.4-12.5); PTT 33 SEC (25-37)
--- NOTE | 2016-09-15 07:18 | PN- Resident CRCU ---
Subjective HPI/CRCU Issues: Currently afebrile, hemodynamically stable, and saturating well on 40% mechanical ventilator. No overnight reported. Denies any current active complaints 24 Hour Events: * Tmax: 100 * HR: 72-100 with average being 82 * One episode of sinus bradycardia down to 42 at 10 AM yesterday * BP: low as 90/40 highest 163/84 * Saturating upper 90s on BiPAP 60% oxygen * Yesterday I/Os 1785/3764 (negative balance) * Total balance to date 72255/85738 (overall positive balance) * Left chest tube no fluid being drained * Left colostomy had a clear mucous secretion * On fentanyl drip 3.1 Objective Vital Signs & I&O Last 8 Hrs of Vitals and I&O: Vital Signs Date Time Temp Pulse Resp B/P B/P Pulse O2 O2 Flow FiO2 Mean Ox Delivery Rate / 1200 94 Ventilator 40% / 0836 40 /08 0800 98.4 80 20 112/56 93 Ventilator 40% / 0800 93 Ventilator 40% / 0549 40 06/08 0400 93 Ventilator 40% / 0333 40 06/08 0146 40 06/08 0120 99.1 06/08 0021 100.0 06/08 0010 84 128/73 06/08 0000 100.0 86 22 128/73 94 Ventilator 40% 06/08 0000 94 Ventilator 40% 06/07 2300 93 120/67 06/07 2210 40 06/07 2000 94 Ventilator 40% 06/07 1920 40 06/07 1625 40 06/07 1600 93 Ventilator 40% /07 1600 98.0 94 22 153/69 98 Ventilator 40% 06/07 1510 Ventilator 60% 06/07 1419 40 Intake & Output /08 1600 06/08 0800 06/08 0000 Intake Total 200 680 Output Total 900 1000 Balance -700 -320 Intake, IV 30 25 Intake, Tube 70 535 Feeding Intake, Tube 100 120 Irrigant Output, Chest 0 0 Tube Drainage Output, 0 0 Drainage Output, Stool 100 400 Output, Urine 800 600 Exam General Appearance: alert, awake, intubated Head: atraumatic, normal appearance Respiratory: normal breath sounds, chest non-tender, no respiratory distress Cardiovascular: regular rate/rhythm Gastrointestinal: normal bowel sounds, soft, non-tender Extremities: normal inspection, no edema Weaning Parameters NIF: 32 Minute Volume: 16.3 Resp rate: 52 Vt: 314 Heart Rate: 80 Weaning Schedule Start Time: 1930 Minute Volume: 12.8 Resp Rate: 32 Vt: 400 Heart Rate: 105 End Time: 2000 Minute Volume: 17.5 Resp Rate: 40 Vt: 435 Heart Rate: 95 Start Time: 1310 Minute Volume: 7.9 Resp Rate: 25 Vt: 388 Heart Rate: 86 End Time: 1350 Minute Volume: 8.8 Resp Rate: 37 Vt: 280 Heart Rate: 89 Current Medications: Current Medications Sig/Ry Start time Last Medication Dose Route Stop Time Status Admin Acetaminophen 650 MG ONCE ONE 09/15 0015 DC 09/15 PO 09/15 0016 0021 Acetaminophen 1,000 MG .STK-MED ONE 09/15 0011 DC IV 09/15 0012 Acetaminophen 1,000 MG Q6P PRN 08/27 0230 DC 09/14 N/A 1 UNIT IV 0235 Acetylcysteine 2 ML BID 09/06 1000 AC 09/15 INH 0815 Albuterol Sulfate 3 ML EVERY 4 HRS/AWAKE 09/01 2000 AC 09/15 INH 1230 Albuterol Sulfate 3 ML Q4H PRN 08/27 1000 AC 08/28 INH 1309 Chlorhexidine 15 ML TID 08/29 1000 AC 09/15 Gluconate PO 0944 Dextrose 25 GM ONCE ONE 09/15 1145 DC 09/15 IV 09/15 1146 1252 Enoxaparin Sodium 40 MG DAILY 09/03 1000 AC 09/15 SC 0941 Fentanyl Citrate 1,000 MCG Q24H 09/11 0830 DC 09/13 Dextrose/Water 250 ML IV 0222 Fluconazole 400 MG Q24 09/13 1030 AC 09/15 Sodium Chloride 200 ML IV 0943 Lorazepam 2 MG Q3P PRN 09/07 0800 AC 09/15 IV 1120 Magnesium Oxide 400 MG DAILY 09/12 1000 AC / PO 0943 Meropenem 1 GM Q8H 09/15 0000 AC 09/15 IV 0830 Meropenem 1 GM IQ8 09/01 1600 DC 09/14 IV 0842 Morphine Sulfate 2 MG Q3P PRN 09/15 0930 AC / IV 0940 Norepinephrine 8 MG Q24H / 0030 AC 09/12 Sodium Chloride 250 ML IV 0101 Pantoprazole Sodium 40 MG DAILY 05/20 1000 AC 09/15 IV 0942 Potassium Chloride 20 MEQ DAILY 09/12 1000 AC 08 PO 0943 Propranolol HCl 10 MG AT BEDTIME 09/07 2200 AC 09/14 PO 2300 Sertraline HCl 50 MG DAILY 09/07 1301 AC 09/15 PO 0942 Simethicone 80 MG ONCE ONE 09/15 0830 DC 09/15 PO 09/15 0931 1011 Trazodone HCl 200 MG AT BEDTIME 09/07 2200 AC 09/14 PO 2300 Impression/Plan Impression/Problem List Impression: Ms. Camacho is a 60 year old female with PMH anxiety, depression, COPD , prior episode of severe clostridium difficile infection in 2016, tobacco abuse and gastritis who presented to the [facility] after one week of altered mental status, decreased oral intake and possible withdrawl symptoms as her clonazepam was being titrated off per doctor instructions. She was found to be hypotensive, febrile and altered while in the [facility]. Neurological Metabolic encephalopathy on admission, likely secondary to severe sepsis from sigmoid perforation/peritonitis. * Alert and follow commands * Strength 5/5 on UE B/L and 4/5 on LE B/L * Sedative meds Fentanyl drip 3.1 * Psych meds including trazodone, propranolol and sertraline daily * CT head negative for acute intracranial pathology Plan 1.NTD Cardiovascular Sinus tachycardia with T wave changes on admission(resolved).ACS was excluded. Echo showed normal global LV function without wall motion abnormalities and normal pulm artery systolic pressure Over last 24 hour * HR: 72-100 with average being 82 * One episode of sinus bradycardia down to 42 at 10 AM yesterday * BP: low as 90/40 highest 163/84 Medications * Propranolol 10 mg at bedtime Plan 1.continue monitor vitals Respiratory Patient initially placed on non-rebreather but was transitioned to high flow nasal cannula/ BiPAP due to tachypnea/apparent respiratory distress. Patient tolerated BiPAP well but was intubated for Ho's procedure, POD# 19, patient remains intubated since than. Noted bilateral pleural effusions on CT chest, patient s/p thoracentesis on 09/02 and again on 09/13. the thoracentesis done on 09/13 was complicated by pneumothorax for which chest tube was placed in the left lung. CTA 2 days ago ruled out PE as a cause of increased O2 requirements. * today lungs are clear to auscultation with no additional sounds * Got extubated today at 12:35 * A flow nasal cannula 45% 50L Pulmonary medications * Albuterol Plan 1.TRC/Nebs 2.Aspiration precautions 3.We will reduce fio2 as tolerated 4.We will consider taking out chest tube as pneumothorax has resolved Renal Had SIERRA on presentation Likely prerenal in the setting of severe sepsis. Kidney function is back to normal after IV hydration. * Yesterday I/Os 1785/3764 (negative balance) * Total balance to date 04079/10719 (overall positive balance) * Today Cr 0.5 and BUN 11 Plan 1.Continue monitoring renal function Fluids, Electrolytes, and Nutrition (FEN) * Na 136, K 4.0, corrected Ca 9.3 and Mg is 2. * Patient will be nothing by mouth post extubation * Pending swallowing evaluation Plan 1.Repeat chemistry daily 2.will oreder prealbumin for tomorrow Infectious Diseases Patient presented with fever, leukocytosis, hypotension and tachycardia secondary to peritonitis from perforated sigmoid colon with abscess formation, S /P Harmann's procedure with Dr. Armendariz. Blood cultures showed no growth, lower respiratory culture grew pseudomonas (resistent to zosyn) and culture from OR grew E.Coli, alpha/beta strep and brandon. She was placed on IV fluconazole and IV meropenem. IR placed one RUQ drain and one LLQ drain to drain this fluid. LLQ was subsequently taken out but the RUQ drain remains in place. * Tmax 100 * current Temp is 98.4 * WBCs 16.1 up from 15 yesterday * On Meropenem and Fluconazole Plan 1.Continue to monitor output from the right upper quadrant catheter 2.Follow-up recent cultures 3.Continue Meropenem and Fluconazole Hematology Patient given 5 U PRBC total since admission, with last one being yesterday. Initial had thrombocytopenia likely 2/2 coagulopathly from sepsis, 4Ts score placed patient at low risk for HIT (<5%) so SC lovenox was Resumed on 09/02 * H&H 8.5 & 26.2 * Platelet count 768 * INR 1.26 Plan 1.Follow up CBC daily, monitor for bleeding FULL CODE DVT prophylaxis: ALPS + SC lovenox Ulcer prophylaxis: Pantoprazole Pain: Fentanyl drip Problem List: 1. Status post Ho's procedure Pain Ratin Tomorrow's Labs & Rationales: ICU bundle and CBC Plan DVT/Prophylaxis: mechanical, pharmacological Code Status: Full Code
[2016-09-15 08:00] VITALS: BP 112/56
--- NOTE | 2016-09-15 08:19 | RADIOLOGY REPORT ---
EXAMINATION: XR PORTABLE CHEST CLINICAL INFORMATION: Intubated. Weaning trials. COMPARISON: 09/14/2016 TECHNIQUE: Portable frontal view of the chest was obtained. FINDINGS: The tip of the endotracheal tube is 5 cm above the evelio. The tip of the right arm peripherally inserted catheter is in stable position at the level of the [id number] SVC. Enteric tube extends below the diaphragm, into the stomach and beyond the [id number]. The pleural drainage catheter is in stable position at the medial aspect of the left apex. No pneumothorax. Cardiac silhouette remains normal in size. Again noted are small pleural effusions and bibasilar opacities without appreciable change from 09/14/2016. IMPRESSION: Endotracheal tube in satisfactory position at 5 cm above the evelio. No new pulmonary findings compared to the prior radiograph.
--- NOTE | 2016-09-15 09:41 | PN- CRCU ---
Subjective HPI/Critical Care Issues: pt seen and examined trialed on cpap did poorly awaiting trach no other new events Objective Current Medications: Current Medications Sig/Ry Start time Last Medication Dose Route Stop Time Status Admin Acetaminophen 650 MG ONCE ONE 09/15 0015 DC 09/15 PO 09/15 0016 0021 Acetaminophen 1,000 MG .STK-MED ONE 09/15 0011 DC IV 09/15 0012 Acetaminophen 1,000 MG Q6P PRN 08/27 0230 DC 09/14 N/A 1 UNIT IV 0235 Acetylcysteine 2 ML BID 09/06 1000 AC 09/15 INH 0815 Albuterol Sulfate 3 ML EVERY 4 HRS/AWAKE 09/01 2000 AC 09/15 INH 0815 Albuterol Sulfate 3 ML Q4H PRN 08/27 1000 AC 08/28 INH 1309 Chlorhexidine 15 ML TID 08/29 1000 AC 09/14 Gluconate PO 2130 Enoxaparin Sodium 40 MG DAILY 09/03 1000 AC 09/14 SC 1028 Fentanyl Citrate 1,000 MCG Q24H 09/11 0830 DC 09/13 Dextrose/Water 250 ML IV 0222 Fluconazole 400 MG Q24 09/14 1000 DC Sodium Chloride 200 ML IV Fluconazole 400 MG Q24 09/13 1030 AC 09/14 Sodium Chloride 200 ML IV 1028 Furosemide 20 MG ONCE ONE 09/14 1045 DC 09/14 IV 09/14 1046 1051 Lorazepam 2 MG Q3P PRN 09/07 0800 AC 09/14 IV 1829 Magnesium Oxide 400 MG DAILY 09/12 1000 AC 09/14 PO 1028 Meropenem 1 GM Q8H 09/15 0000 AC 09/15 IV 0038 Meropenem 1 GM IQ8 09/01 1600 DC 09/14 IV 0842 Morphine Sulfate 2 MG Q3P PRN 09/15 0830 AC IV Norepinephrine 8 MG Q24H 09/12 0030 AC 09/12 Sodium Chloride 250 ML IV 0101 Pantoprazole Sodium 40 MG DAILY 08/27 1000 AC 09/14 IV 1028 Potassium Chloride 20 MEQ DAILY 09/12 1000 AC 09/14 PO 1028 Propranolol HCl 10 MG AT BEDTIME 09/07 2200 AC 09/14 PO 2300 Sertraline HCl 50 MG DAILY 09/07 1301 AC 09/14 PO 1028 Simethicone 80 MG ONCE ONE 09/15 929 DC PO 06/08 0931 Trazodone HCl 200 MG AT BEDTIME 09/07 2200 AC 09/14 PO 2300 Vital Signs & I&O Last 24 Hrs of Vitals and I&O: Vital Signs Date Time Temp Pulse Resp B/P B/P Pulse O2 O2 Flow FiO2 Mean Ox Delivery Rate 09/15 0836 40 09/15 0549 40 09/15 0400 93 Ventilator 40% 09/15 0333 40 09/15 0146 40 09/15 0120 99.1 09/15 0021 100.0 09/15 0010 84 128/73 06/ 0000 100.0 86 22 128/73 94 Ventilator 40% 09/15 0000 94 Ventilator 40% 09/14 2300 93 120/67 09/14 2210 40 09/14 2000 94 Ventilator 40% 09/14 1920 40 09/14 1625 40 09/14 1600 93 Ventilator 40% 09/14 1600 98.0 94 22 153/69 98 Ventilator 40% 09/14 1510 Ventilator 60% / 1419 40 / 1200 94 Ventilator 40% 09/14 1149 40 09/14 0944 40 Intake & Output 09/15 1600 /08 0800 06/08 0000 Intake Total 200 680 Output Total 900 1000 Balance -700 -320 Intake, IV 30 25 Intake, Tube 70 535 Feeding Intake, Tube 100 120 Irrigant Output, Chest 0 0 Tube Drainage Output, 0 0 Drainage Output, Stool 100 400 Output, Urine 800 600 Exam Other Physical Findings: gen awake, mild distress on cpap heent ett cvs s1, s2 lungs transmitted, rare rhonchi abd soft, dressings intact ext without edema Results Last 24 Hrs of Lab Results: Laboratory Tests 09/15/16 0505: pH 7.54 H, pCO2 30 L, pO2 56 L, HCO3 26, ABG O2 Sat (Measured) 89.0 L, P-50 (Temp Corrected) Y, Carboxyhemoglobin 0.3 L, O2 Concentration % 40%, Temperature 98.7, Respiration Rate 20, O2 Delivery Method ESPRIT, Vent Mode AC, Expiratory Pressure 5, Tidal Volume 550, Phlebotomy Draw Site LEFT BRACHIAL 09/15/16 0848: Anion Gap 8, Estimated GFR > 60, Glucose 72, Calcium 7.9 L, Phosphorus 4.3, Magnesium 2.0, Total Bilirubin 0.3, AST 26, ALT 39, Albumin 2.0 L, PT 13.2 H, INR 1.26 H, APTT 33, CBC w Diff NO MAN DIFF REQ, RBC 2.87 L, MCV 91.1, MCH 29.7, RDW 15.9 H, MPV 8.0, Gran % 82.7 H, Lymphocytes % 8.7 L, Monocytes % 7.1, Eosinophils % 1.2, Basophils % 0.3, Absolute Granulocytes 13.7 H, Absolute Lymphocytes 1.4, Absolute Monocytes 1.2 H, Absolute Eosinophils 0.2, Absolute Basophils 0.1, PUBS MCHC 32.6 L Impression/Plan Impression/Plan Impression/Plan: Impression 60 year old woman * hypoxemic respiratory failure * pneumothorax post thoracentesis * s/p pericolic abscess s/p drainage and sigmoid colectomy with end colostomy Plan Respiratory -TRC/Nebs -aspiration precautions -reduce fio2 as tolerated -CPAP/T-piece trials -cont chest tube to [facility] water seal -tracheostomy evaluation with Dr. Portillo - plan for Monday ID -f/u ID recommendations CVS -monitor hemodynamics Heme -monitor cbc, coags Metabolic -cont hydration Alimentary -aspiration precautions Neuro -anxiolysis DVT prophylaxis at all times - lovenox TTS 35 min Code Status: Full Code
--- NOTE | 2016-09-15 10:10 | PN- General Surgery ---
Subjective Subjective: Patient still intubated, awake and alert, no abdominal pain. Tolerating tube feeds. Objective Vital Signs and I&Os Vital Signs Date Time Temp Pulse Resp B/P B/P Pulse O2 O2 Flow FiO2 Mean Ox Delivery Rate 09/15 0836 40 06/ 0549 40 / 0400 93 Ventilator 40% 09/15 0333 40 / 0146 40 / 0120 99.1 / 0021 100.0 /08 0010 84 128/73 06/08 0000 100.0 86 22 128/73 94 Ventilator 40% 06/08 0000 94 Ventilator 40% / 2300 93 120/67 06/ 2210 40 / 2000 94 Ventilator 40% 09/14 1920 40 / 1625 40 / 1600 93 Ventilator 40% / 1600 98.0 94 22 153/69 98 Ventilator 40% / 1510 Ventilator 60% / 1419 40 / 1200 94 Ventilator 40% / 1149 40 Intake & Output 09/15 1600 / 0800 06/08 0000 / 1600 / 0800 06/07 0000 Intake Total 200 680 905 973 365 Output Total 900 1000 1860 395 570 Balance -700 -320 -955 578 -205 Intake, IV 30 25 225 337 25 Intake, Tube 70 535 560 516 280 Feeding Intake, Tube 100 120 120 120 60 Irrigant Output, Chest 0 0 0 0 Tube Drainage Output, 0 0 0 10 Drainage Output, Other 20 Output, Stool 100 400 200 50 100 Output, Urine 634 498 7565 325 460 Patient 146 lb Weight Weight Bed scale Measurement Method Physical Exam: Well-developed well-nourished no apparent distress. Intubated HEENT: Atraumatic, extraocular motion intact Neck: Supple, no lymphadenopathy Respiratory: No respiratory distress Abdomen: Midline incision has healed except for the most distal portion of the wound and still remains open, there is granulation tissue present, there is slight serous discharge. Surgical khloe are removed without incident Ostomy appears pink and not contracted, functioning normally, moderate amount of liquid brown stool in the bag Extremities: No edema, no calf pain Right side abdominal drain with slightly cloudy thin discharge Neuro: Alert and oriented x3 Psych: Mood affect normal, Skin: Warm and dry, no rash on exposed skin Assessment/Plan Assessment/Plan Postop day #20 status post Granger's procedure for perforated colon Patient continues to have intermittent fever, doubt abdominal origin Surgical khloe removed Continue daily dressing changes to open area distal incision Continue tube feeds Ostomy care Continue drain to right side of abdomen, cultures negative so far
--- NOTE | 2016-09-15 11:05 | PN- Infect Dx ---
Subjective Subjective: MAXIMUM TEMPERATURE 100. She offers no complaints. Objective Last 24 Hrs of Vital Signs/I&O Vital Signs Date Time Temp Pulse Resp B/P B/P Pulse O2 O2 Flow FiO2 Mean Ox Delivery Rate 09/15 0836 40 / 0549 40 09/15 0400 93 Ventilator 40% 09/15 0333 40 09/15 0146 40 09/15 0120 99.1 / 0021 100.0 /08 0010 84 128/73 06/08 0000 100.0 86 22 128/73 94 Ventilator 40% 06/08 0000 94 Ventilator 40% / 2300 93 120/67 06/ 2210 40 / 2000 94 Ventilator 40% 09/14 1920 40 / 1625 40 / 1600 93 Ventilator 40% 09/14 1600 98.0 94 22 153/69 98 Ventilator 40% 07 1510 Ventilator 60% / 1419 40 / 1200 94 Ventilator 40% 09/14 1149 40 Intake & Output 09/15 1600 08 0800 06/08 0000 Intake Total 200 680 Output Total 900 1000 Balance -700 -320 Intake, IV 30 25 Intake, Tube 70 535 Feeding Intake, Tube 100 120 Irrigant Output, Chest 0 0 Tube Drainage Output, 0 0 Drainage Output, Stool 100 400 Output, Urine 800 600 Physical Exam Other Physical Findings: She appears comfortable on the ventilator in no acute distress Chest left chest tube in place Lungs are clear Heart regular rhythm with no murmur Abdomen is soft, nontender with positive bowel sounds; incision is clean, with minimal exudate at the inferior aspect, status post removal of khloe; liquid stool in the colostomy; right upper quadrant catheter with 40 mL of seropurulent fluid Extremities minimal edema left lower extremity; PICC in the right upper extremity with no inflammation at the site F[place]on catheter remains in place Results Last 24 Hours of Lab Results: Laboratory Tests 09/15 09/15 0505 0428 Blood Gas pH (7.35 - 7.45 PH) 7.54 H pCO2 (35 - 45 TORR) 30 L pO2 (80 - 100 TORR) 56 L HCO3 (21 - 28 MEQ/L) 26 ABG O2 Sat (Measured) (>96.0 %) 89.0 L P-50 (Temp Corrected) Y Carboxyhemoglobin (1.5 - 5.0 %) 0.3 L O2 Concentration % 40% Temperature (97.0 - 100.0 FARH) 98.7 Respiration Rate (BPM) 20 O2 Delivery Method ESPRIT Vent Mode AC Expiratory Pressure (CMH2O/P) 5 Tidal Volume (CC) 550 Chemistry Sodium (137 - 145 mmol/L) 136 L Potassium (3.5 - 5.1 mmol/L) 4.0 Chloride (98 - 107 mmol/L) 102 Carbon Dioxide (22 - 30 mmol/L) 26 Anion Gap (5 - 16) 8 BUN (7 - 17 mg/dL) 11 Creatinine (0.5 - 1.0 mg/dL) 0.5 Estimated GFR (>60 ml/min) > 60 Glucose (65 - 99 mg/dL) 72 Calcium (8.4 - 10.2 mg/dL) 7.9 L Phosphorus (2.5 - 4.5 mg/dL) 4.3 Magnesium (1.6 - 2.3 mg/dL) 2.0 Total Bilirubin (0.2 - 1.3 mg/dL) 0.3 AST (14 - 36 U/L) 26 ALT (9 - 52 U/L) 39 Albumin (3.5 - 5.0 g/dL) 2.0 L Coagulation PT (9.4 - 12.5 SEC) 13.2 H INR (0.90 - 1.19) 1.26 H APTT (25 - 37 SEC) 33 Hematology CBC w Diff NO MAN DIFF REQ WBC (4.8 - 10.8 /CUMM) 16.5 H RBC (4.20 - 5.40 /CUMM) 2.87 L Hgb (12.0 - 16.0 G/DL) 8.5 L Hct (37 - 47 %) 26.2 L MCV (81.0 - 99.0 FL) 91.1 MCH (27.0 - 31.0 PG) 29.7 RDW (11.5 - 14.5 %) 15.9 H Plt Count (130 - 400 /CUMM) 768 H MPV (7.4 - 10.4 FL) 8.0 Gran % (42.2 - 75.2 %) 82.7 H Lymphocytes % (20.5 - 51.1 %) 8.7 L Monocytes % (1.7 - 9.3 %) 7.1 Eosinophils % (0 - 5 %) 1.2 Basophils % (0.0 - 2.0 %) 0.3 Absolute Granulocytes (1.4 - 6.5 /CUMM) 13.7 H Absolute Lymphocytes (1.2 - 3.4 /CUMM) 1.4 Absolute Monocytes (0.10 - 0.60 /CUMM) 1.2 H Absolute Eosinophils (0.0 - 0.7 /CUMM) 0.2 Absolute Basophils (0.0 - 0.2 /CUMM) 0.1 PUBS MCHC (33.0 - 37.0 G/DL) 32.6 L Miscellaneous Phlebotomy Draw Site LEFT BRACHIAL Last 24 Hours of [place] Results: Sputum culture September 14 positive for gram-negative rods Blood cultures 2 September 14 negative Urine culture September 14 negative Superficial culture from the incision September 14 possible Enterococcus Left pleural fluid culture September 13 negative Recent Imaging Studies: Chest x-ray September 15, personally reviewed, reveals bibasilar densities, right greater than left Assessment/Plan Impression: Overall condition remains stable though she is still on pressors for intermittent hypotension and is still ventilator dependent status post thoracentesis 2 days ago, with removal of 650 mL of transudative fluid, complicated by a pneumothorax, for which a chest tube has been placed. She had just a low-grade fever overnight though her white blood cell count has increased slightly, with no evidence of any new infection. Her recent sputum culture is again growing gram-negative rods, likely to be quite resistant, as she has been on Meropenem for 2 weeks, but presumably just represents colonization. She also remains on Fluconazole for Fanny albicans isolated from the initial OR cultures. She is now 2 weeks status post drainage of a purulent fluid collection from the right upper quadrant, with the recent CT scan of the abdomen and pelvis not revealing any new drainable collections. The positive superficial culture from the incision is of unclear significance and would not treat. She is now 20 days status post Granger's procedure for a perforated sigmoid colon for a polymicrobial peritonitis, with Clostridium isolated from the initial blood culture. The recent CT scan continues to reveal possible splenic infarcts, which are of unclear significance. She remains ventilator dependent and is scheduled for a tracheostomy in the a.m. Suggestion: 1. Follow-up recent cultures 2. Continue Meropenem and Fluconazole
[2016-09-15 16:00] VITALS: BP 130/80
[2016-09-16] VITALS: BP 145/81
--- NOTE | 2016-09-16 02:13 | NUR ---
2100 REC'D PT IN BED ALERT/AWAKE BUT FIDGETY. FOLLOWS SIMPLE COMMANDS. SLOW/SOFT/HOARSE VOICE. RECENTLY EXT ON DAYS ON HIGH FLOW W/FIO2 OF 50% POX 90-92%, LS CLEAR BUT DIMINISHED THROUGHOUT THE LOBES. SR ON THE MONITOR HR 80'S, SBP 120-140'S. FC INSITU & DRIANING ADEQUATE U/O OF FABIAN COLOR. PERCUTANEOUS DRAIN RLQ INSITU & CLEAR D/C; COLOSTOMY INSITU & DRAINING BROWN LIUIDY BM <OUT SINCE OFF THE TF. LCW PIGTAIL TO H2O SEAL NO D/C. ATIVAN IVP GIVEN SEE EMAR. NPO FOR NOW UNTIL SWAL EVAL. 2300 POX HOOVERING IN THE MID-HIGH 80'S. T&P/BOOSTED UP PT SEVERAL TIMES. NODDED YES FOR ABD PAIN & GETTING >RESTLESSNESS. MORPHINE IVP GIVEN. SEE EMAR 0030 DESPITE HAVING ESSENCE SOFT UPPER RESTRAINTS PT MANAGED TO PULL THE TOBAR. KEPT IT OFF. INFORMED DR. TURNER EL. RE. PT'S STATUS VS, TACHYPNEIC IN 30'S, LABORING/USING ACCESSORY MUSCLE TO BREATH & BS 79. CONT TO MONITOR. WILL HAVE RT ED TO DO MORE ADJUSTMENT ON FIO2. 0100 DESATTING IN MID 85'S CONTINUOUSLY. BOOSTED UP. INC OF URINE LG AMT. PERICARE GIVEN & BOOSTED UP PT AGAIN. ORALLY SUCTIONED DRY NO SECRETION 0115 DESATTING IN THE 70'S. CALLED RT ED. 0130 RT ED AT BEDSIDE. NASALLY SUCTIONED PALE WHITE SECRETION MOD AMT. TITRATE FIO2 TO 65% STILL POX >78-80'S, > FIO2 TO 80% POX NOW 89-90%. DR. TURNER EL AT BEDSIDE TO SEE IF PT NEEDS TO BE ON BIPAP INSTEAD. 0200 POX 90%. CONT TO MONITOR.
[2016-09-16 05:29] LABS: ABSOLUTE BASOPHIL COUNT 0 /CUMM (0.0-0.2); ABSOLUTE EOSINOPHIL COUNT 0.2 /CUMM (0.0-0.7); ABSOLUTE GRANULOCYTE CT 19.7 /CUMM (1.4-6.5); ABSOLUTE LYMPH COUNT 1.1 /CUMM (1.2-3.4); ABSOLUTE MONOCYTE COUNT 1.4 /CUMM (0.10-0.60); BASOPHIL % 0.2 % (0.0-2.0); HEMATOCRIT 27.7 % (37-47); MEAN CORPUSCULAR HGB 29.9 PG (27.0-31.0); MEAN CORPUSCULAR HGB CONC 32.4 G/DL (33.0-37.0); MEAN CORPUSCULAR VOLUME 92.1 FL (81.0-99.0); MEAN PLATELET VOLUME 8.2 FL (7.4-10.4); RBC DISTRIBUTION WIDTH 16.1 % (11.5-14.5); RED BLOOD CELL CT 3.01 /CUMM (4.20-5.40); WHITE BLOOD CELL COUNT 22.5 /CUMM (4.8-10.8)
[2016-09-16 06:12] LABS: GRANULOCYTE % 87.5 % (42.2-75.2); PLATELET COUNT 884 /CUMM (130-400)
--- NOTE | 2016-09-16 07:30 | PN- Resident CRCU ---
Subjective HPI/CRCU Issues: Afebrile, hemodynamically stable, leukocytosis worsened overnight up to 22.5, required higher FiO2 overnight, now saturating low 90s on 80% high flow in NC. Dysphonia mildly improved. Patient denies any currently active complaints 24 Hour Events: * Tmax: 100 * HR: 70-95 with average being 90 * BP: low as 103/60 and highest 159/89 * Saturating lower 90s on 80% high flow oxygen * Yesterday I/Os 875/1445 (negative balance) * Total balance to date 18969/17186 (overall positive balance) * Left chest tube still in place 1.Overnight patient desaturated to 70s while she was on high flow NC 50% FiO2. Oxygen was increased to 80% after which saturation increased to 90. 2.Patient put a 60 mL out of the left chest tube. Objective Vital Signs & I&O Last 8 Hrs of Vitals and I&O: Vital Signs Date Time Temp Pulse Resp B/P B/P Pulse O2 O2 Flow FiO2 Mean Ox Delivery Rate 09/16 0400 92 Nasal 80% Cannula 09/16 0142 92 Nasal 80% Cannula 09/16 0047 87 Nasal 50% Cannula 09/16 0000 99.5 91 40 145/81 89 Nasal 50% Cannula 09/16 0000 90 Nasal 50% Cannula 09/15 2230 81 131/74 09/15 2000 90 Nasal 45% Cannula 09/15 1640 90 Nasal 50% Cannula 09/15 1600 94 Nasal 55% Cannula 09/15 1600 98.0 86 32 130/80 94 Nasal 55% Cannula 09/15 1200 94 Ventilator 40% Intake & Output 09/16 1600 09/16 0800 09/16 0000 Intake Total 384 405 Output Total 286 435 Balance 98 -30 Intake, IV 384 395 Intake, Other 10 Output, Chest 56 0 Tube Drainage Output, 10 10 Drainage Output, Stool 20 25 Output, Urine 200 400 Exam General Appearance: alert, awake, moderate distress Head: atraumatic, normal appearance Neck: normal inspection, supple Respiratory: chest non-tender, decreased breath sounds (on left side ), crackles (on left more than right ), rhonchi, respiratory distress, tachypnea Cardiovascular: regular rate/rhythm Gastrointestinal: soft, non-tender Extremities: normal inspection, no edema Cranial Nerves: dysphonia Weaning Parameters NIF: 32 Minute Volume: 11.3 Resp rate: 20 Vt: 558 Heart Rate: 80 Weaning Schedule Start Time: 0940 Minute Volume: 8.4 Resp Rate: 23 Vt: 350 Heart Rate: 80 End Time: 1035 Minute Volume: 17.5 Resp Rate: 40 Vt: 435 Heart Rate: 95 Start Time: 1100 Minute Volume: 7.9 Resp Rate: 25 Vt: 388 Heart Rate: 86 End Time: 1235 Minute Volume: 8.8 Resp Rate: 37 Vt: 280 Heart Rate: 89 Current Medications: Current Medications Sig/Ry Start time Last Medication Dose Route Stop Time Status Admin Acetylcysteine 2 ML BID 09/06 1000 AC 09/16 INH 0756 Albuterol Sulfate 3 ML EVERY 4 HRS/AWAKE 09/01 2000 AC 09/16 INH 0756 Albuterol Sulfate 3 ML Q4H PRN 08/27 1000 AC 08/28 INH 1309 Chlorhexidine 15 ML TID 08/29 1000 DC 09/15 Gluconate PO 0944 Dextrose 25 GM ONCE ONE 09/15 1545 DC 09/15 IV 09/15 1546 1605 Dextrose 25 GM ONCE ONE 09/15 1145 DC 09/15 IV 09/15 1146 1252 Dextrose/Sodium 1,000 ML Q13H 09/15 1345 AC 09/16 Chloride IV 0423 Enoxaparin Sodium 40 MG DAILY 09/03 1000 AC 09/15 SC 0941 Fentanyl Citrate 1,000 MCG Q24H 09/11 0830 DC 09/13 Dextrose/Water 250 ML IV 0222 Fluconazole 400 MG Q24 09/13 1030 AC 09/15 Sodium Chloride 200 ML IV 0943 Lorazepam 2 MG Q3P PRN 09/07 0800 AC 09/15 IV 2137 Magnesium Oxide 400 MG DAILY 09/12 1000 AC 09/15 PO 0943 Meropenem 1 GM Q8H 09/15 0000 AC 09/15 IV 2355 Morphine Sulfate 2 MG Q3P PRN 09/15 0930 AC 09/16 IV 0005 Norepinephrine 8 MG Q24H 09/12 0030 DC 09/12 Sodium Chloride 250 ML IV 0101 Pantoprazole Sodium 40 MG DAILY 08/27 1000 AC 09/15 IV 0942 Potassium Chloride 20 MEQ DAILY 09/12 1000 AC 09/15 PO 0943 Propranolol HCl 10 MG AT BEDTIME 09/07 2200 AC 09/14 PO 2300 Sertraline HCl 50 MG DAILY 09/07 1301 AC 09/15 PO 0942 Simethicone 80 MG ONCE ONE 09/15 929 DC 09/15 PO 09/15 0931 1011 Trazodone HCl 200 MG AT BEDTIME 09/07 2200 AC 09/14 PO 2300 Impression/Plan Impression/Problem List Impression: Ms. Camacho is a 60 year old female with PMH anxiety, depression, COPD , prior episode of severe clostridium difficile infection in 2016, tobacco abuse and gastritis who presented to the [facility] after one week of altered mental status, decreased oral intake and possible withdrawl symptoms as her clonazepam was being titrated off per doctor instructions. She was found to be hypotensive, febrile and altered while in the [facility]. Neurological Metabolic encephalopathy on admission, likely secondary to severe sepsis from sigmoid perforation/peritonitis. * Alert and follow commands * Strength 5/5 X4 * Fentanyl drip was DC'd yesterday * Psych meds including trazodone, propranolol and sertraline daily * CT head negative for acute intracranial pathology Plan 1.NTD Cardiovascular Sinus tachycardia with T wave changes on admission(resolved).ACS was excluded. Echo showed normal global LV function without wall motion abnormalities and normal pulm artery systolic pressure Over last 24 hour * HR: 70-95 with average being 90 * BP: low as 103/60 and highest 159/89 Medications * Propranolol 10 mg at bedtime Plan 1.continue monitor vitals Respiratory Patient initially placed on non-rebreather but was transitioned to high flow nasal cannula/ BiPAP due to tachypnea/apparent respiratory distress. Patient tolerated BiPAP well but was intubated for Ho's procedure, POD# 20, patient remains intubated until 09/15/16 when she was extubated. Noted bilateral pleural effusions on CT chest, patient s/p thoracentesis on 09/02 and again on 09/13. the thoracentesis done on 09/13 was complicated by pneumothorax for which chest tube was placed in the left lung. Recent CTA days ago ruled out PE as a cause of increased O2 requirements. * Physical Exam: Tachypneic to 40, in respiratory distress, wheezing and rhonchi on the left more than right. Left chest tube drained 60 mL of clear yellow nonbloody fluid. * was extubated yesterday at 12:35 * Now on a high flow NC FiO2 of 80% Pulmonary medications * Albuterol * Nebs Plan 1.TRC/Nebs 2.Aspiration precautions 3.Stat chest x-ray 4.One time IV Solu-Medrol 60 mg resistant dysphonia which may reflect edema. 5.We will start patient on BiPAP 6.If no improvement with BiPAP and steroids we may consider range patient Renal Had SIERRA on presentation Likely prerenal in the setting of severe sepsis. Kidney function is back to normal after IV hydration. * Yesterday I/Os 875/1445 (negative balance) * Total balance to date 72021/28842 (overall positive balance) * Today Cr 0.5 and BUN 10 Plan 1.Continue monitoring renal function Fluids, Electrolytes, and Nutrition (FEN) * Na 135, K 4.1, corrected Ca 9.7 and Mg is 2. * Patient will be nothing by mouth, if she improved with proceeded with a swollen evaluation * Pending swallowing evaluation Plan 1.Repeat chemistry daily 2.will oreder prealbumin for tomorrow Infectious Diseases Patient presented with fever, leukocytosis, hypotension and tachycardia secondary to peritonitis from perforated sigmoid colon with abscess formation, S /P Harmann's procedure with Dr. Armendariz. Blood cultures showed no growth, lower respiratory culture grew pseudomonas (resistent to zosyn) and culture from OR grew E.Coli, alpha/beta strep and brandon. She was placed on IV fluconazole and IV meropenem. IR placed one RUQ drain and one LLQ drain to drain this fluid. LLQ was subsequently taken out but the RUQ drain remains in place. Overnight the * Tmax: 100 * Current Temp is 98.6 * WBCs: 22.5 up from 16.1 yesterday * On Meropenem and Fluconazole Plan 1.Continue to monitor output from the right upper quadrant catheter 2.Follow-up recent cultures 3.Continue Meropenem and Fluconazole 4.We will plan abdominal CT once patient condition stable and allows. Hematology Patient given total of 5 U PRBC since admission. Initial had thrombocytopenia likely 2/2 coagulopathly from sepsis, 4Ts score placed patient at low risk for HIT (<5%) so SC lovenox was Resumed on 09/02 * H&H 9 & 27.7 * Platelet count 884 * INR 1.26 Plan 1.Follow up CBC daily, monitor for bleeding FULL CODE DVT prophylaxis: ALPS + SC lovenox Ulcer prophylaxis: Pantoprazole Pain: Fentanyl drip Problem List: 1. Status post Ho's procedure Pain Ratin Tomorrow's Labs & Rationales: ICU bundle and CBC Plan DVT/Prophylaxis: mechanical, pharmacological Code Status: Full Code
[2016-09-16 08:00] VITALS: BP 158/78
--- NOTE | 2016-09-16 08:41 | PN- CRCU ---
See Addendum Subjective HPI/Critical Care Issues: pt seen and examined this am leukocytosis 22.5 from 16.5 on high flow nasal cannula saturating 92% (80% fio2) chest tube with some yellow fluid tachypneic and in distress this am Objective Current Medications: Current Medications Sig/Ry Start time Last Medication Dose Route Stop Time Status Admin Acetylcysteine 2 ML BID 09/06 1000 AC 09/16 INH 0756 Albuterol Sulfate 3 ML EVERY 4 HRS/AWAKE 09/01 2000 AC 09/16 INH 0756 Albuterol Sulfate 3 ML Q4H PRN 08/27 1000 AC 08/28 INH 1309 Chlorhexidine 15 ML TID 08/29 1000 DC 09/15 Gluconate PO 0944 Dextrose 25 GM ONCE ONE 09/15 1545 DC 09/15 IV 09/15 1546 1605 Dextrose 25 GM ONCE ONE 09/15 1145 DC 09/15 IV 09/15 1146 1252 Dextrose/Sodium 1,000 ML Q13H 09/15 1345 AC 09/16 Chloride IV 0423 Enoxaparin Sodium 40 MG DAILY 09/03 1000 AC 09/15 SC 0941 Fentanyl Citrate 1,000 MCG Q24H 09/11 0830 DC 09/13 Dextrose/Water 250 ML IV 0222 Fluconazole 400 MG Q24 09/13 1030 AC 09/15 Sodium Chloride 200 ML IV 0943 Lorazepam 2 MG Q3P PRN 09/07 0800 AC 09/15 IV 2137 Magnesium Oxide 400 MG DAILY 09/12 1000 AC 09/15 PO 0943 Meropenem 1 GM Q8H 09/15 0000 AC 09/15 IV 2355 Morphine Sulfate 2 MG Q3P PRN 09/15 0930 AC 09/16 IV 0005 Norepinephrine 8 MG Q24H 09/12 0030 DC 09/12 Sodium Chloride 250 ML IV 0101 Pantoprazole Sodium 40 MG DAILY 08/27 1000 AC 09/15 IV 0942 Potassium Chloride 20 MEQ DAILY 09/12 1000 AC 09/15 PO 0943 Propranolol HCl 10 MG AT BEDTIME 09/070 AC 09/14 PO 2300 Sertraline HCl 50 MG DAILY 09/07 1301 AC 09/15 PO 0942 Simethicone 80 MG ONCE ONE 09/15 0930 DC 09/15 PO 09/15 0931 1011 Trazodone HCl 200 MG AT BEDTIME 09/07 2200 AC 09/14 PO 2300 Vital Signs & I&O Last 24 Hrs of Vitals and I&O: Vital Signs Date Time Temp Pulse Resp B/P B/P Pulse O2 O2 Flow FiO2 Mean Ox Delivery Rate 09/16 0400 92 Nasal 80% Cannula 09/16 0142 92 Nasal 80% Cannula 09/16 0047 87 Nasal 50% Cannula 09/16 0000 99.5 91 40 145/81 89 Nasal 50% Cannula 09/16 0000 90 Nasal 50% Cannula 09/15 2230 81 131/74 09/15 2000 90 Nasal 45% Cannula 09/15 1640 90 Nasal 50% Cannula 09/15 1600 94 Nasal 55% Cannula 09/15 1600 98.0 86 32 130/80 94 Nasal 55% Cannula 09/15 1200 94 Ventilator 40% Intake & Output 09/16 0800 09/16 0000 Intake Total 384 405 Output Total 286 435 Balance 98 -30 Intake, IV 384 395 Intake, Other 10 Output, Chest 56 0 Tube Drainage Output, 10 10 Drainage Output, Stool 20 25 Output, Urine 200 400 Exam Other Physical Findings: gen awake heent high flow nc cvs s1, s2 lungs rare rhonchi, diminshed abd soft bs+ ext without edema Results Last 24 Hrs of Lab Results: Laboratory Tests 09/16/16 0410: Anion Gap 7, Estimated GFR > 60, Glucose 102 H, Calcium 8.3 L, Phosphorus 5.7 H, Magnesium 2.0, Total Bilirubin 0.3, AST 23, ALT 42, Albumin 2.2 L, CBC w Diff NO MAN DIFF REQ, RBC 3.01 L, MCV 92.1, MCH 29.9, RDW 16.1 H, MPV 8.2, Gran % 87.5 H, Lymphocytes % 4.9 L, Monocytes % 6.4, Eosinophils % 1.0, Basophils % 0.2, Absolute Granulocytes 19.7 H, Absolute Lymphocytes 1.1 L, Absolute Monocytes 1.4 H, Absolute Eosinophils 0.2, Absolute Basophils 0, PUBS MCHC 32.4 L 09/15/16 1150: pH 7.48 H, pCO2 35, pO2 63 L, HCO3 26, ABG O2 Sat (Measured) 91.0 L, P-50 ( Temp Corrected) NO, Carboxyhemoglobin 0.1 L, O2 Concentration % 40%, Temperature 98.4, O2 Delivery Method VENT, Vent Mode CPAP, Expiratory Pressure 5 , Pressure Support 5, Phlebotomy Draw Site LEFT BRACHIAL Impression/Plan Impression/Plan Impression/Plan: Impression 60 year old woman * hypoxemic respiratory failure * resolved pneumothorax post thoracentesis * s/p pericolic abscess s/p drainage and sigmoid colectomy with end colostomy Plan -trial of bipap, if unsuccessful will require re-intubation and tracheostomy -TRC/Nebs -continue to reduce fio2 as tolerated ID -f/u ID recommendations -worsened leukocytosis -on meropenem and fluconazole -once stabilized, will pursue imaging of chest/abd/pelvis CVS -monitor hemodynamics Heme -monitor cbc, coags Metabolic -cont hydration Alimentary -aspiration precautions Neuro -anxiolysis DVT prophylaxis at all times - lovenox TTS 35 min Remain in ICU Code Status: Full Code
--- NOTE | 2016-09-16 08:52 | NUR ---
Physical therapy: Orders for PT eval and treat received. Chart reviewed. Spoke with RN who reports patient with increased difficulty with breathing, increased chest tube output. Patient not stable to be evaluated by PT at this time. Will cancel PT for today and follow up as appropriate. Thank you.
--- NOTE | 2016-09-16 09:25 | RADIOLOGY REPORT ---
EXAMINATION: XR PORTABLE CHEST CLINICAL INFORMATION: Difficulty breathing COMPARISON: Multiple chest x-rays most recent prior dated 09/15/2016 TECHNIQUE: Portable frontal view of the chest was obtained. FINDINGS: Right-sided PICC line terminating in the superior vena cava. Interval removal of the endotracheal tube. Left-sided pigtail catheter terminating in the medial aspect left apex similar to the previous examination. Stable Cardia mediastinal silhouette. Interval increase small bilateral pleural effusions with associated bibasilar infiltrate or atelectasis.. IMPRESSION: Slight interval increase bilateral pleural effusions with associated consolidation or atelectasis.
--- NOTE | 2016-09-16 10:32 | PN- Infect Dx ---
Subjective Subjective: Afebrile. She was extubated yesterday, but has required BiPAP overnight and is in increased respiratory distress this morning. She apparently pulled out her [place] overnight Objective Last 24 Hrs of Vital Signs/I&O Vital Signs Date Time Temp Pulse Resp B/P B/P Pulse O2 O2 Flow FiO2 Mean Ox Delivery Rate 09/16 0800 79 95 09/16 0400 92 Nasal 80% Cannula 09/16 0142 92 Nasal 80% Cannula 09/16 0047 87 Nasal 50% Cannula 09/16 0000 99.5 91 40 145/81 89 Nasal 50% Cannula 09/16 0000 90 Nasal 50% Cannula 09/15 2230 81 131/74 09/15 2000 90 Nasal 45% Cannula 09/15 1640 90 Nasal 50% Cannula 09/15 1600 94 Nasal 55% Cannula 09/15 1600 98.0 86 32 130/80 94 Nasal 55% Cannula 09/15 1200 94 Ventilator 40% Intake & Output 09/16 1600 09/16 0800 09/16 0000 Intake Total 384 405 Output Total 286 435 Balance 98 -30 Intake, IV 384 395 Intake, Other 10 Output, Chest 56 0 Tube Drainage Output, 10 10 Drainage Output, Stool 20 25 Output, Urine 200 400 Physical Exam Other Physical Findings: She is lethargic but arousable intermittently on BiPAP Chest chest tube in place in the left upper chest with slight erythema at the site; 56 mL output from this tube overnight Lungs are clear Heart regular rhythm with no murmur Abdomen is soft, nontender with positive bowel sounds; incision is clean, with minimal fibrinous exudate in the inferior aspect of the incision; colostomy with liquid output; right upper quadrant drain with 50 mL output yesterday and 10 mL overnight Extremities trace edema of the left lower extremity; PICC in the right upper extremity with no inflammation at the site Results Last 24 Hours of Lab Results: Laboratory Tests 09/16 09/16 0940 0410 Blood Gas pH (7.35 - 7.45 PH) 7.44 pCO2 (35 - 45 TORR) 39 pO2 (80 - 100 TORR) 66 L HCO3 (21 - 28 MEQ/L) 26 ABG O2 Sat (Measured) (>96.0 %) 92.0 L P-50 (Temp Corrected) N Carboxyhemoglobin (1.5 - 5.0 %) 0.1 L O2 Concentration % 70% Respiration Rate (BPM) 24 O2 Delivery Method BIPAP Vent Mode ST Expiratory Pressure (CM H2O P) 6 Inspiratory Pressure (CM H2O P) 20 Chemistry Sodium (137 - 145 mmol/L) 135 L Potassium (3.5 - 5.1 mmol/L) 4.1 Chloride (98 - 107 mmol/L) 101 Carbon Dioxide (22 - 30 mmol/L) 26 Anion Gap (5 - 16) 7 BUN (7 - 17 mg/dL) 10 Creatinine (0.5 - 1.0 mg/dL) 0.5 Estimated GFR (>60 ml/min) > 60 Glucose (65 - 99 mg/dL) 102 H Calcium (8.4 - 10.2 mg/dL) 8.3 L Phosphorus (2.5 - 4.5 mg/dL) 5.7 H Magnesium (1.6 - 2.3 mg/dL) 2.0 Total Bilirubin (0.2 - 1.3 mg/dL) 0.3 AST (14 - 36 U/L) 23 ALT (9 - 52 U/L) 42 Albumin (3.5 - 5.0 g/dL) 2.2 L Hematology CBC w Diff NO MAN DIFF REQ WBC (4.8 - 10.8 /CUMM) 22.5 H RBC (4.20 - 5.40 /CUMM) 3.01 L Hgb (12.0 - 16.0 G/DL) 9.0 L Hct (37 - 47 %) 27.7 L MCV (81.0 - 99.0 FL) 92.1 MCH (27.0 - 31.0 PG) 29.9 RDW (11.5 - 14.5 %) 16.1 H Plt Count (130 - 400 /CUMM) 884 H MPV (7.4 - 10.4 FL) 8.2 Gran % (42.2 - 75.2 %) 87.5 H Lymphocytes % (20.5 - 51.1 %) 4.9 L Monocytes % (1.7 - 9.3 %) 6.4 Eosinophils % (0 - 5 %) 1.0 Basophils % (0.0 - 2.0 %) 0.2 Absolute Granulocytes (1.4 - 6.5 /CUMM) 19.7 H Absolute Lymphocytes (1.2 - 3.4 /CUMM) 1.1 L Absolute Monocytes (0.10 - 0.60 /CUMM) 1.4 H Absolute Eosinophils (0.0 - 0.7 /CUMM) 0.2 Absolute Basophils (0.0 - 0.2 /CUMM) 0 PUBS MCHC (33.0 - 37.0 G/DL) 32.4 L Miscellaneous Phlebotomy Draw Site LEFT RADIAL 09/15 1150 Blood Gas pH (7.35 - 7.45 PH) 7.48 H pCO2 (35 - 45 TORR) 35 pO2 (80 - 100 TORR) 63 L HCO3 (21 - 28 MEQ/L) 26 ABG O2 Sat (Measured) (>96.0 %) 91.0 L P-50 (Temp Corrected) NO Carboxyhemoglobin (1.5 - 5.0 %) 0.1 L O2 Concentration % 40% Temperature (97.0 - 100.0 FARH) 98.4 O2 Delivery Method VENT Vent Mode CPAP Expiratory Pressure (CMH2O/P) 5 Pressure Support (CMH2O/P) 5 Miscellaneous Phlebotomy Draw Site LEFT BRACHIAL Last 24 Hours of [place] Results: Sputum culture September 14 positive for Pseudomonas sensitive to Meropenem and mold Blood cultures 2 September 14 negative Urine culture September 14 negative Superficial culture from the abdominal incision September 14 positive for Enterococcus (not VRE) Recent Imaging Studies: Chest x-ray September 16, personally reviewed, reveals increased bilateral densities/ effusions Assessment/Plan Impression: Condition is currently unstable, with tenuous respiratory status after extubation yesterday, though blood pressure is stable without the need for pressors. The left chest tube remains in place for the pneumothorax, which occurred after her recent thoracentesis, now with 50 mL of drainage overnight. She remains afebrile but her white blood cell count has increased further, with no evidence of any new infection, with her sputum culture still growing Pseudomonas and mold, both of which likely represent colonization. She remains on Meropenem and Fluconazole now 21 days status post Granger's procedure for polymicrobial peritonitis secondary to a perforated sigmoid colon now 15 days status post drainage of a purulent fluid collection from the right upper quadrant, with the recent CT scan of the abdomen and pelvis not revealing any new drainable collections, but with seropurulent fluid still draining from the catheter. The positive culture for Enterococcus from the incision also likely represent colonization and does not require any specific treatment. Suggestion: 1. Further management of her respiratory status per Pulmonary 2. If she is is able to go for a CT of the chest would extend to the abdomen and pelvis 3. Continue Meropenem and Fluconazole
--- NOTE | 2016-09-16 13:37 | NUR ---
SPEECH THERAPY: ORDERS RECEIVED, PT CHART REVIEWED. ST ATTEMPTED TO SEE PT FOR INITIAL SWALLOW EVALUATION, HOWEVER, PER RN REPORT, PT IS CURRENTLY HAVING DIFFICULTY BREATHING REQUIRING BiPAP, AND HAVING INCREASED CHEST TUBE OUTPUT. SWALLOW EVALUATION DEFERRED AT THIS TIME. D/W RN, AND MD; ALL IN AGREEMENT. MD TO PLACE NEW SWALLOW EVALUATION ORDERS OVER WEEKEND IF PT STATUS IMPROVES.
--- NOTE | 2016-09-16 15:00 | NUR ---
RECEIVED PT ALERT & ORIENTED TO PERSON. ON HIGHFLOW NC O2 @ 70% WITH 50L FLOW PER RT. O2 SATS 88-89% & TACHYPNEIC WITH RR HIGH 30S TO 40S. LEFT LUNG SOUNDS EXTREMELY DIMINISHED W/RUBBING SOUND AT BASE TO AUSCULTATION. LEFT ANTERIOR CHEST TUBE REMAINS INTACT W/SERROUS OUTPUT OF 60ML AT SHIFT CHANGE WHICH WAS A LARGE INCREASE SINCE INSERTION DATE 09/13. RIGHT LUNG SOUNDS DIMINISHED THROUGHOUT WITH CRACKLES FROM BASE TO MID LUNG TO AUSCULTATION. STAT CHEST XRAY & ABG ORDERED & COMPLETED. DR GARCIA & DR ACKERMAN NOTIFIED. DR CARIAS AT BEDSIDE. PT PLACED ON BIPAP BY RT WITH RR=24, IPAP=20/EPAP=6, FIO2 50% WITH O2 SATS 90-92%. PATIENT INCREASINGLY MORE LETHARGIC DURING THIS TIME. 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 TOBAR 18F REPLACED PER ORDER FOR STRICT I&O W/15ML NS IN BALLOON. LLQ COLOSTOMY REMAINS INTACT W/SCANT YELLOW SEMILIQUID OUTPUT. REMAINS NPO PENDING SWALLOW EVAL WHEN STABLE. RUQ PERCUTANEOUS DRAIN FLUSHED WITH 10ML/NS WITH PURULENT YELLOW OUTPUT RETURNED IN DRAINAGE BAG TO GRAVITY. SEE ICU FLOW SHEET FOR DETAILS. CXRAY REPORTED INCREASE IN PLEURAL EFFUSIONS & 40MG IV LASIX, 60MG IV SOLUMEDROL X1 ORDERED & GIVEN PER EMAR. 2MG IV ATIVAN GIVEN PER PRN ORDER. @0930-DR CARIAS IN TO REASSESS & INCREASED FIO2 ON BIPAP TO 70% AFTER ABG RESULTS FOR O2 SATS 89-92%. RR IMPROVED TO 30-34 ON BIPAP. @1145-O2 SATS REMAINED ABOVE 94% ON BIPAP 70% FIO2 & RR IMPROVED TO 27-30. PT SLEEPING & REPORTS BREATHING FEELS BETTER. FIO2 DECREASED TO 65% BY RT-DALJIT AT THIS TIME. BP DECREASED & IS CURRENTLY 80S/40S MANUALLY. DR GARCIA & DR ACKERMAN NOTIFIED. LEVOPHED ORDERED @ 1MCG/MIN TO MAINTAIN SBP >90 OR MAP >65. @1230-LEVOPHED STARTED @ 1MCG/MIN VIA ANASTACIA PICC. IVF D5-1/2NS INCREASED FROM 50ML/HR TO 75ML/HR. PATIENT SOUND ASLEEP & RESTING COMFORTABLY. RR=24 & O2 SATS 96-98% ON BIPAP 65% FIO2. @1430-MAP <65 ON 1MCG/MIN OF LEVOPHED IV & DR GARCIA NOTIFIED & ORDERED 250ML NS IV BOLUS X1 & CHANGED IVF TO D5-NS @ 75ML/HR & KEEP LEVOPHED @ 1MCG/MIN AT THIS TIME. SEE ICU FLOW SHEET FOR FURTHER DETAILS. WILL CONTINUE TO MONITOR.
[2016-09-16 16:00] VITALS: BP 110/58
--- NOTE | 2016-09-16 19:30 | NUR ---
@1845-PATIENT REMAINS ON BIPAP 65%, RR=24, IPAP=20/EPAP=6 WITH O2 SATS DECREASING TO 85-88%, PT INCREASINGLY TACHYPNEIC WITH RR=30-34. LEFT ANTERIOR CHEST TUBE WITH SERROUS OUTPUT NOTED IN TUBING. UPON AUSCULTATION CRACKLES TO RIGHT MIDDLE & LOWER LUNG DIEZ & DIMINISHED THROUGHOUT, DECREASED AIRFLOW TO LEFT LOWER LOBE & DIMINISHED TO LEFT UPPER LOBE. DR CALHOUN & DR HADDAD NOTIFIED OF CHANGE. 20MG IV LASIX ORDERED X1 & GIVEN PER EMAR. D5-NS IVF RATE DECREASED TO 50ML/HR PER EMAR. LEVOPHED RESTARTED PER DR HADDAD & DR CALHOUN @ 1MCG/MIN FOR SBP >90 OR MAP >65. O2 SATS INCREASED TO 88-90% PRIOR TO ADMINISTRATION OF IV LASIX. REPORT GIVEN TO ONCOMING RN.
[2016-09-17] VITALS: BP 94/64
[2016-09-17 05:08] LABS: ABSOLUTE BASOPHIL COUNT 0.1 /CUMM (0.0-0.2); ABSOLUTE EOSINOPHIL COUNT 0 /CUMM (0.0-0.7); ABSOLUTE GRANULOCYTE CT 12.4 /CUMM (1.4-6.5); ABSOLUTE LYMPH COUNT 1.1 /CUMM (1.2-3.4); ABSOLUTE MONOCYTE COUNT 0.8 /CUMM (0.10-0.60); BASOPHIL % 0.4 % (0.0-2.0); EOSINOPHIL % 0 % (0-5); GRANULOCYTE % 86.7 % (42.2-75.2); HEMATOCRIT 25.6 % (37-47); MEAN CORPUSCULAR HGB 29.2 PG (27.0-31.0); MEAN CORPUSCULAR HGB CONC 32.3 G/DL (33.0-37.0); MEAN CORPUSCULAR VOLUME 90.4 FL (81.0-99.0); MEAN PLATELET VOLUME 7.8 FL (7.4-10.4); PLATELET COUNT 851 /CUMM (130-400); RBC DISTRIBUTION WIDTH 16.3 % (11.5-14.5); RED BLOOD CELL CT 2.83 /CUMM (4.20-5.40); WHITE BLOOD CELL COUNT 14.4 /CUMM (4.8-10.8)
--- NOTE | 2016-09-17 06:51 | NUR ---
PATIENT REMOVED TOBAR CATHETER WITH BALLOON STILL INFLATED. NO BLEEDING OR INCONTINENCE NOTED AT THIS TIME. WILL CONT TO MONITOR.
[2016-09-17 08:00] VITALS: BP 126/78
--- NOTE | 2016-09-17 08:34 | RADIOLOGY REPORT ---
EXAMINATION: XR PORTABLE CHEST CLINICAL INFORMATION: Bilateral effusions and basilar atelectasis. Follow-up. COMPARISON: Portable chest 09/16/2016, 09/15/2016, 09/14/2016. TECHNIQUE: Portable semiupright AP view of the chest is performed at 0757 hours. FINDINGS: Right PICC line is at the distal superior vena cava. Left pigtail catheter again seen overlying medial apex. Bibasilar effusions appears slightly decreased when compared with prior study 09/16/2016 which was also performed at similar patient positioning. In retrospect, the prior study shows fullness of the vasculature with cephalization of flow. On the current study, the vascularity appears normal. There is no interval airspace consolidation. No pneumothorax. Cardiac and hilar and mediastinal contours and bony structures are stable. IMPRESSION: 1. Bibasilar effusions slightly decreased from 09/16/2016. 2. Vascularity normal. No interval airspace consolidation.
--- NOTE | 2016-09-17 08:37 | PN- Resident CRCU ---
Subjective HPI/CRCU Issues: Afebrile, hemodynamically stable, improved leukocytosis(14 down from 22), tolerating upper 90s on 70% high flow NC. Patient feels hungry and denies any other active complaints. Patient is off levophed drip. 24 Hour Events: * Tmax: 89.6 * HR: 60-90 * BP: low as 75/47 and highest 144/80 * Oxygen saturation is on the high 90s on 70% high flow NC * Yesterday I/Os (negative balance) * Total balance to date 21184/10302 (overall positive balance) * Colostomy is filled with mucousy clear fluid. * No sign of infection or infiltration around PICC tube Objective Vital Signs & I&O Last 8 Hrs of Vitals and I&O: Vital Signs Date Time Temp Pulse Resp B/P B/P Pulse O2 O2 Flow FiO2 Mean Ox Delivery Rate 09/17 0839 95 Nasal 70% Cannula 09/17 0838 67 95 09/17 0646 60 93 09/17 0400 89 BIPAP 65% 09/17 0300 83 90 09/17 0041 75 91 09/17 0000 98.7 68 28 94/64 92 BIPAP 65% 09/17 0000 92 BIPAP 65% 09/16 2153 80 91 09/16 2009 92 BIPAP 65% 09/16 2000 94 BIPAP 65% 09/16 1906 71 89 09/16 1615 62 94 09/16 1600 98.6 68 24 110/58 97 BIPAP 65% 09/16 1600 97 BIPAP 65% 09/16 1401 Ventilator 60% 09/16 1357 72 93 09/16 1244 74 78/46 09/16 1200 94 BIPAP 65% 09/16 1148 69 95 09/16 0900 79 95 Intake & Output 09/17 1600 10 0800 09/17 0000 Intake Total 392 390 Output Total 250 750 Balance 142 -360 Intake, IV 392 390 Output, Urine 250 750 Exam General Appearance: well developed/nourished, no apparent distress, alert, awake Head: atraumatic, normal appearance Cardiovascular: regular rate/rhythm Gastrointestinal: normal bowel sounds, soft, non-tender Extremities: normal inspection, no edema Weaning Parameters NIF: 32 Minute Volume: 11.3 Resp rate: 20 Vt: 558 Heart Rate: 80 Weaning Schedule Start Time: 0940 Minute Volume: 8.4 Resp Rate: 23 Vt: 350 Heart Rate: 80 End Time: 1035 Minute Volume: 17.5 Resp Rate: 40 Vt: 435 Heart Rate: 95 Start Time: 1100 Minute Volume: 7.9 Resp Rate: 25 Vt: 388 Heart Rate: 86 End Time: 1235 Minute Volume: 8.8 Resp Rate: 37 Vt: 280 Heart Rate: 89 Current Medications: Current Medications Sig/Ry Start time Last Medication Dose Route Stop Time Status Admin Acetylcysteine 2 ML BID 09/06 1000 AC 09/17 INH 0755 Albuterol Sulfate 3 ML EVERY 4 HRS/AWAKE 09/01 2000 AC 09/17 INH 0755 Albuterol Sulfate 3 ML Q4H PRN 08/27 1000 AC 08/28 INH 1309 Dextrose/Sodium 1,000 ML Q13H 09/16 1515 AC 09/17 [place] 0650 Dextrose/Sodium 1,000 ML Q13H 09/16 1430 DC 09/16 Chloride IV 1130 Dextrose/Sodium 1,000 ML Q13H 09/15 1345 DC 09/16 Chloride IV 0423 Enoxaparin Sodium 40 MG DAILY 09/03 1000 AC 09/17 SC 0818 Fluconazole 400 MG Q24 09/13 1030 AC 09/17 Sodium Chloride 200 ML IV 0818 Furosemide 20 MG ONCE ONE 09/16 1914 DC 09/16 IV 09/16 Lorazepam 2 MG Q3P PRN 09/07 0800 AC 09/17 IV 0413 Magnesium Oxide 400 MG DAILY 09/12 1000 AC 09/15 PO 0943 Meropenem 1 GM Q8H 09/15 0000 AC 09/17 IV 0817 Morphine Sulfate 2 MG Q3P PRN 09/15 0930 AC 09/17 IV 0413 Norepinephrine 4 MG Q24H 09/16 1115 AC 09/16 Dextrose/Water 250 ML IV 1244 Pantoprazole Sodium 40 MG DAILY 08/27 1000 AC 09/17 IV 0817 Potassium Chloride 20 MEQ DAILY 09/12 1000 AC 09/15 PO 0943 Propranolol HCl 10 MG AT BEDTIME 09/07 2200 AC 09/14 PO 2300 Sertraline HCl 50 MG DAILY 09/07 1301 AC 09/15 PO 0942 Sodium Chloride 250 ML BOLUS ONE 09/16 1430 DC 09/16 IV 09/16 1529 1430 Trazodone HCl 200 MG AT BEDTIME 09/07 2200 AC 09/14 PO 2300 Impression/Plan Impression/Problem List Impression: Ms. Camacho is a 60 year old female with PMH anxiety, depression, COPD , prior episode of severe clostridium difficile infection in 2016, tobacco abuse and gastritis who presented to the [facility] after one week of altered mental status, decreased oral intake and possible withdrawl symptoms as her clonazepam was being titrated off per doctor instructions. She was found to be hypotensive, febrile and altered while in the [facility] ED. Neurological Metabolic encephalopathy on admission, likely secondary to severe sepsis from sigmoid perforation/peritonitis. * Alert and follow commands * Strength 08/12 X4 * Psych meds including trazodone, propranolol and sertraline daily * CT head negative for acute intracranial pathology Plan 1.NTD Cardiovascular Sinus tachycardia with T wave changes on admission(resolved).ACS was excluded. Echo showed normal global LV function without wall motion abnormalities and normal pulm artery systolic pressure Over last 24 hour * HR: 60-90 * BP: low as 75/47 and highest 144/80 Medications * Propranolol 10 mg at bedtime Plan 1.continue monitor vitals Respiratory Patient initially placed on non-rebreather but was transitioned to high flow nasal cannula/ BiPAP due to tachypnea/apparent respiratory distress. Patient tolerated BiPAP well but was intubated for Ho's procedure, POD# 20, patient remains intubated until 09/15/16 when she was extubated. Noted bilateral pleural effusions on CT chest, patient s/p thoracentesis on 09/02 and again on 09/13. the thoracentesis done on 09/13 was complicated by pneumothorax for which chest tube was placed in the left lung. Recent CTA days ago ruled out PE as a cause of increased O2 requirements. * Patient's physical exam improved comparing to yesterday. There is diminished air entry over lung bilaterally. Mouth crackles on the right lung base. * Now on a high flow NC FiO2 of 70% Pulmonary medications * Albuterol * Nebs Plan 1.TRC/Nebs 2.Aspiration precautions 3.we'll follow chest x-ray was done this morning Renal Had SIERRA on presentation Likely prerenal in the setting of severe sepsis. Kidney function is back to normal after IV hydration. * Yesterday I/Os (negative balance) * Total balance to date 83310/79199 (overall positive balance) * Today Cr 0.6 and BUN 14 Plan 1.Continue monitoring renal function Fluids, Electrolytes, and Nutrition (FEN) * Na 137, K 3.9 , corrected Ca 9.4 and Mg is 2. * Pending swallowing evaluation this morning * Albumin is 2.4 and prealbumin is 8.9 Plan 1.Repeat chemistry daily Infectious Diseases Patient presented with fever, leukocytosis, hypotension and tachycardia secondary to peritonitis from perforated sigmoid colon with abscess formation, S /P Harmann's procedure with Dr. Armendariz. Blood cultures showed no growth, lower respiratory culture grew pseudomonas (resistent to zosyn) and culture from OR grew E.Coli, alpha/beta strep and brandon. She was placed on IV fluconazole and IV meropenem. IR placed one RUQ drain and one LLQ drain to drain this fluid. LLQ was subsequently taken out but the RUQ drain remains in place. Patient grew Pseudomonas in sputum culture (09/14/16), this was found to be sensitive meropenem. Patient possibly has hospital-acquired pneumonia. Overnight the * Tmax: 98.6 * Current Temp is 98.2 * WBCs: 14.4 down from 22.5 yesterday * On Meropenem and Fluconazole Plan 1.Continue to monitor output from the right upper quadrant catheter 3.Continue Meropenem and Fluconazole 4.We will plan abdominal CT once patient condition stable and allows. Hematology Patient given total of 5 U PRBC since admission. Initial had thrombocytopenia likely 2/2 coagulopathly from sepsis, 4Ts score placed patient at low risk for HIT (<5%) so SC lovenox was Resumed on 09/02 * H&H 8.3 & 25.6 * Platelet count 851 * INR 1.26 (on 09/15) Plan 1.Follow up CBC daily, monitor for bleeding FULL CODE DVT prophylaxis: ALPS + SC lovenox Ulcer prophylaxis: Pantoprazole Problem List: 1. Status post Ho's procedure Pain Ratin Tomorrow's Labs & Rationales: ICU bundle and CBC Plan DVT/Prophylaxis: mechanical, pharmacological Code Status: Full Code
--- NOTE | 2016-09-17 09:24 | PN- Pulmonary ---
Subjective HPI/Critical Care Issues: Patient is a comfortable awake alert now on high flow oxygen there is no apparent air leak Objective Current Medications: Current Medications Sig/Ry Start time Last Medication Dose Route Stop Time Status Admin Acetylcysteine 2 ML BID 09/06 1000 AC 09/17 INH 0755 Albuterol Sulfate 3 ML EVERY 4 HRS/AWAKE 09/01 2000 AC 09/17 INH 0755 Albuterol Sulfate 3 ML Q4H PRN 08/27 1000 AC 08/28 INH 1309 Dextrose/Sodium 1,000 ML Q13H 09/16 1515 AC 09/17 [place]loride [place] 0650 Dextrose/Sodium 1,000 ML Q13H 09/16 1430 DC 09/16 Chloride IV 1130 Dextrose/Sodium 1,000 ML Q13H 09/15 1345 DC 09/16 Chloride IV 0423 Enoxaparin Sodium 40 MG DAILY 09/03 1000 AC 09/17 SC 0818 Fluconazole 400 MG Q24 09/13 1030 AC 09/17 Sodium Chloride 200 ML IV 0818 Furosemide 20 MG ONCE ONE 09/16 1914 DC 09/16 IV 09/16 191 191 Furosemide 40 MG ONCE ONE 09/16 0830 DC 09/16 IV 09/16 0931 0926 Lorazepam 2 MG Q3P PRN 09/07 0800 AC 09/17 IV 0413 Magnesium Oxide 400 MG DAILY 09/12 1000 AC 09/15 PO 0943 Meropenem 1 GM Q8H 09/15 0000 AC 09/17 IV 0817 Morphine Sulfate 2 MG Q3P PRN 09/15 0930 AC 09/17 IV 0413 Norepinephrine 4 MG Q24H 09/16 1115 AC 09/16 Dextrose/Water 250 ML IV 1244 Pantoprazole Sodium 40 MG DAILY 08/27 1000 AC 09/17 IV 0817 Potassium Chloride 20 MEQ DAILY 09/12 1000 AC 09/15 PO 0943 Propranolol HCl 10 MG AT BEDTIME 09/07 2200 AC 09/14 PO 2300 Sertraline HCl 50 MG DAILY 09/07 1301 AC 09/15 PO 0942 Sodium Chloride 250 ML BOLUS ONE 09/16 1430 DC 09/16 IV 09/16 1529 1430 Trazodone HCl 200 MG AT BEDTIME 09/07 2200 AC 09/14 PO 2300 Vital Signs & I&O Last 24 Hrs of Vitals and I&O: Vital Signs Date Time Temp Pulse Resp B/P B/P Pulse O2 O2 Flow FiO2 Mean Ox Delivery Rate 09/17 0839 95 Nasal 70% Cannula 09/17 0838 67 95 09/17 0646 60 93 09/17 0400 89 BIPAP 65% 09/17 0300 83 90 09/17 0041 75 91 09/17 0000 98.7 68 28 94/64 92 BIPAP 65% 09/17 0000 92 BIPAP 65% 09/16 2153 80 91 09/16 2008 92 BIPAP 65% 09/17 1999 94 BIPAP 65% 09/16 1906 71 89 09/16 1615 62 94 09/16 1600 98.6 68 24 110/58 97 BIPAP 65% 09/16 1600 97 BIPAP 65% 09/16 1401 Ventilator 60% 09/16 1357 72 93 09/16 1244 74 78/46 09/16 1200 94 BIPAP 65% 09/16 1148 69 95 Intake & Output 09/17 1600 09/17 0800 09/17 0000 Intake Total 392 390 Output Total 250 750 Balance 142 -360 Intake, IV 392 390 Output, Urine 250 750 02.795 percent saturation exam for chest shows decreased breath sounds at the bases cardiac exam shows regular S1 and S2 abdomen is soft nontender pressors have been discontinued Impression/Plan Impression/Plan Impression/Plan: 60-year-old woman being treated for pseudomonas pneumonia and hypoxic respiratory failure has tolerated extubation Recommendations: Taper FiO2 his saturations allow complete course of antibiotics. Aggressive pulmonary toilet. Respiratory status remains stable IR will need to remove pigtail catheter
--- NOTE | 2016-09-17 11:30 | Patient Discharge Instructions ---
Discharge Instructions General Discharge Information You were seen/treated for: pericolic abscess s/p drainage and sigmoid colectomy with end colostomy You had these procedures: hartmans procedure Special Instructions: please follow up with your PCP upon discharge. Please follow up with your surgeon upon discharge. Usual timing of colostomy reversal is three months from index operation. However , she needs to be fully independent of ADLs and off supplemental oxygen for this to occur. please continue to take your medications as prescribed. Please continue to plan to follow-up with care post discharge. please follow up with medical office assistant upon discharge. Diet Continue normal diet: Yes Activity Full Activity/No Limits: No Activity Self Limited: Yes Acute Coronary Syndrome Inclusion Criteria At DC or during hospital stay patient has or had the following: ACS DIAGNOSIS No Discharge Core Measures Meds if any: Prescribed or Continued at Discharge Meds if any: NOT Prescribed or Continued at Discharge Congestive Heart Failure Inclusion Criteria At DC or during hospital stay patient has or had the following: CHF DIAGNOSIS No Discharge Core Measures Meds if any: Prescribed or Continued at Discharge Meds if any: NOT Prescribed or Continued at Discharge Cerebrovascular accident Inclusion Criteria At DC or during hospital stay patient has or had the following: CVA/TIA Diagnosis No Discharge Core Measures Meds if any: Prescribed or Continued at Discharge Meds if any: NOT Prescribed or Continued at Discharge Venous thromboembolism Inclusion Criteria VTE Diagnosis No VTE Type NONE VTE Confirmed by (Test) NONE Discharge Core Measures - Per Current guidelines, there needs to be overlap - treatment for the first 5 days of Warfarin therapy. - If discharged on Warfarin prior to 5 days of - overlap therapy, the patient will need to be - assessed for post discharge needs including - *Post discharge parental anticoagulation - *Warfarin and/or parental anticoagulation education - *Follow up date to check INR post discharge At least 5 days overlap therapy as Inpatient No Meds if any: Prescribed or Continued at Discharge Note: Overlap Therapy is Warfarin and Anticoagulant Meds if any: NOT Prescribed or Continued at Discharge
--- NOTE | 2016-09-17 13:56 | PN- General Surgery ---
Surgical Brief Attending Note Brief Attending Note: SLOW IMPROVEMENT. RECOMMEND REPEAT CT ABD WHEN DRAIN OUTPUT BELOW 30/DAY
[2016-09-17 16:00] VITALS: BP 140/70
[2016-09-18] VITALS: BP 140/80
--- NOTE | 2016-09-18 03:00 | NUR ---
0 REC'D PT IN BED ALERT & RESTLESS. PT FOLLOWS COMMANDS WELL BUT CONT TO REMOVE DEVICES, BRING HER BLE OVER THE SIDE OF THE BED/RAILS. DESPITE HAVING ESSENCE UE RESTRAINTS & VADIM, PT MANAGES TO REMOVE THE NC HIGH FLOW & ATTEMPT TO CLIMB OOB. INFORMED DR. TURNER EL RE. PT'S STATUS. ORDERS GIVEN. PT HAS ANOTHER RESTRAINTS FOR SOFT ESSENCE LE. ATIVAN IVP 2MG GIVEN SEE EMAR. T&P/BOOSTED PT UP SEVERAL TIMES. TENDS TO GET HERSELF AT THE END OF THE BED OR LEGS HANGING OOB. SR/SB ON THE MONITOR HR 58-70'S. SBP 120-140'S CORRELATING TO BOTH CUFFS. FC INSITU & DRAINING CLEAR YELLOW URINE ADEQUATE U/O. RLQ ABD PERCUTANEOUS DRAIN INSITU NO D/C & WAS FLUSHED EARLIER. COLOSTOMY NO BM D/T PT IS NOT TAKING ANY PO BECAUSE FAILED SWAL EVAL. PIGTAIL CHEST TUBE INSITU W/MIN DRAINAGE IN THE PLEURAVAC CHAMBER. LS CLEAR BUT DIMINISHED AT THE BASES. 2199 T&P/BOOSTED UP IN BED. HAD CHEST PT DONE BY WILNER CONTRERAS. VAUGHN WELL. 2229 PLACED ON BIPAP W/RATE 24/ FIO2 65%/ IPAP/EPAP 20/6 POX > 95%. INFORMED DR. TURNER EL RE. PT NEEDS A 1:1 SITTER D/T BIPAP & PT IS RESTRAINTS. DENIES ANY PAIN NODDED NO. [id number] CONT TO T&P/BOOST PT UP SEVERAL TIMES. REASSURANCE-REORIENTATION GIVEN. COMPLETE BED BATH W/HAIR WASH PROVIDED. STILL RESTLESS. INFORMED DR. PEREZ RE. PT'S NPO NO MEDS GIVEN BECAUSE PT FAILED SWAL EVAL. AND HER PYSCHE MEDS WERE HELD IN PAST FEW DAYS. ORDERS GIVEN. ZYPREXA IM & ATIVAN IV GIVEN SEE EMAR. 0300 PT FINALLY SETTLED TO SLEEP. CONT TO MONITOR.
[2016-09-18 05:29] LABS: ABSOLUTE BASOPHIL COUNT 0 /CUMM (0.0-0.2); ABSOLUTE EOSINOPHIL COUNT 0 /CUMM (0.0-0.7); ABSOLUTE GRANULOCYTE CT 12.7 /CUMM (1.4-6.5); ABSOLUTE LYMPH COUNT 1.1 /CUMM (1.2-3.4); ABSOLUTE MONOCYTE COUNT 0.8 /CUMM (0.10-0.60); BASOPHIL % 0.2 % (0.0-2.0); EOSINOPHIL % 0.2 % (0-5); GRANULOCYTE % 86.4 % (42.2-75.2); HEMATOCRIT 27.4 % (37-47); MEAN CORPUSCULAR HGB 29.8 PG (27.0-31.0); MEAN CORPUSCULAR HGB CONC 32.7 G/DL (33.0-37.0); MEAN CORPUSCULAR VOLUME 91.1 FL (81.0-99.0); MEAN PLATELET VOLUME 7.7 FL (7.4-10.4); RBC DISTRIBUTION WIDTH 15.9 % (11.5-14.5); RED BLOOD CELL CT 3.01 /CUMM (4.20-5.40)
[2016-09-18 05:58] LABS: WHITE BLOOD CELL COUNT 14.7 /CUMM (4.8-10.8)
[2016-09-18 05:59] LABS: PLATELET COUNT 873 /CUMM (130-400)
--- NOTE | 2016-09-18 07:38 | PN- Infect Dx ---
Subjective Subjective: Afebrile without complaints. Objective Last 24 Hrs of Vital Signs/I&O Vital Signs Date Time Temp Pulse Resp B/P B/P Pulse O2 O2 Flow FiO2 Mean Ox Delivery Rate 09/18 0400 97 BIPAP 65% 09/18 0311 71 96 09/18 0012 62 97 09/18 0000 96.4 66 33 140/80 97 BIPAP 65% 09/18 0000 97 BIPAP 65% 09/17 2212 62 97 09/17 2210 97 Nasal 60% Cannula 09/17 2207 53 140/66 09/17 2000 95 Nasal 60% Cannula 09/17 1945 98 Nasal 60% Cannula 09/17 1626 97 Nasal 60% Cannula 09/17 1600 97.2 64 25 140/70 97 BIPAP 65% 09/17 1600 96 BIPAP 65% 09/17 1556 57 98 09/17 1556 98 BIPAP 65% 09/17 1448 88 94 09/17 1218 96 Nasal 60% Cannula 09/17 1200 94 Nasal 60% Cannula 09/17 0839 95 Nasal 70% Cannula 09/17 0838 67 95 09/17 0800 97.8 72 24 126/78 98 Nasal 70% Cannula 09/17 0800 97 BIPAP 65% Intake & Output 09/18 0800 09/18 0000 09/17 1600 Intake Total 380 470 678 Output Total 350 1510 330 Balance 30 -1040 348 Intake, IV 380 460 668 Intake, Oral 0 Intake, Other 10 Intake, Tube 10 Irrigant Output, Chest 0 10 10 Tube Drainage Output, 0 0 20 Drainage Output, Stool 0 0 50 Output, Urine 350 1500 250 Physical Exam Other Physical Findings: She is awake and alert on high flow oxygen in no acute distress Chest left chest tube remains in place Lungs are clear Heart regular rhythm with no murmur Abdomen soft, nontender with positive bowel sounds; liquid stool in the colostomy; right upper quadrant collection with 20 mL output yesterday and none overnight Extremities no cyanosis, clubbing or edema; PICC in the right upper extremity with no inflammation at the site Fulton catheter in place Results Last 24 Hours of Lab Results: Laboratory Tests 09/18 0410 Chemistry Sodium (137 - 145 mmol/L) 140 Potassium (3.5 - 5.1 mmol/L) 3.4 L Chloride (98 - 107 mmol/L) 105 Carbon Dioxide (22 - 30 mmol/L) 29 Anion Gap (5 - 16) 6 BUN (7 - 17 mg/dL) 14 Creatinine (0.5 - 1.0 mg/dL) 0.5 Estimated GFR (>60 ml/min) > 60 Glucose (65 - 99 mg/dL) 69 Calcium (8.4 - 10.2 mg/dL) 8.3 L Phosphorus (2.5 - 4.5 mg/dL) 3.7 Magnesium (1.6 - 2.3 mg/dL) 1.8 Total Bilirubin (0.2 - 1.3 mg/dL) 0.3 AST (14 - 36 U/L) 26 ALT (9 - 52 U/L) 33 Albumin (3.5 - 5.0 g/dL) 2.1 L Hematology CBC w Diff NO MAN DIFF REQ WBC (4.8 - 10.8 /CUMM) 14.7 H RBC (4.20 - 5.40 /CUMM) 3.01 L Hgb (12.0 - 16.0 G/DL) 9.0 L Hct (37 - 47 %) 27.4 L MCV (81.0 - 99.0 FL) 91.1 MCH (27.0 - 31.0 PG) 29.8 RDW (11.5 - 14.5 %) 15.9 H Plt Count (130 - 400 /CUMM) 873 H MPV (7.4 - 10.4 FL) 7.7 Gran % (42.2 - 75.2 %) 86.4 H Lymphocytes % (20.5 - 51.1 %) 7.6 L Monocytes % (1.7 - 9.3 %) 5.6 Eosinophils % (0 - 5 %) 0.2 Basophils % (0.0 - 2.0 %) 0.2 Absolute Granulocytes (1.4 - 6.5 /CUMM) 12.7 H Absolute Lymphocytes (1.2 - 3.4 /CUMM) 1.1 L Absolute Monocytes (0.10 - 0.60 /CUMM) 0.8 H Absolute Eosinophils (0.0 - 0.7 /CUMM) 0 Absolute Basophils (0.0 - 0.2 /CUMM) 0 PUBS MCHC (33.0 - 37.0 G/DL) 32.7 L Last 24 Hours of [place] Results: Urine culture September 16 negative Urine culture September 17 pending Blood cultures 2 September 14 remain negative Recent Imaging Studies: Chest x-ray September 18 decreased bibasilar densities Assessment/Plan Impression: Somewhat improved, though remains on high flow oxygen with the left chest tube still in place for the pneumothorax that developed after her recent thoracentesis. She remains afebrile with white blood cell count decreased on Meropenem and Fluconazole now 23 days status post Granger's procedure for polymicrobial peritonitis secondary to a perforated sigmoid colon now 17 days status post drainage of a purulent fluid collection from the right upper quadrant, with the recent CT scan of the abdomen and pelvis not revealing any new drainable collections, and with decreased drainage from the right upper quadrant catheter over the last several days. Suggestion: 1. Repeat CT of the abdomen and pelvis in the a.m. September 19 if the drainage from her right upper quadrant catheter remains minimal 2. Continue Meropenem and Fluconazole pending above
[2016-09-18 08:00] VITALS: BP 132/70
--- NOTE | 2016-09-18 08:13 | PN- Resident CRCU ---
Subjective HPI/CRCU Issues: Afebrile, hemodynamically stable, high but stable leukocytosis, saturating above 90 with 50% high flow NC (was on 70% yesterday). 24 Hour Events: Vital signs stable, no acute telemetry event. No acute overnight event reported by nursing staff. Patient is out of bed and seated comfortably on the recliner with no agitation noted. Still on NPO pending swallow eval. Objective Vital Signs & I&O Last 8 Hrs of Vitals and I&O: Intake & Output 09/18 1600 Intake Total 670 Output Total 585 Balance 85 Intake, IV 670 Intake, Oral 0 Output, Chest 10 Tube Drainage Output, 5 Drainage Output, Stool 20 Output, Urine 550 Patient 66.281 kg Weight Weight Bed scale Measurement Method Exam General Appearance: alert, awake Other Physical Findings: Head: atraumatic Neck: normal inspection Respiratory: normal breath sounds Cardiovascular: regular rate/rhythm Gastrointestinal: normal bowel sounds, soft, Colostomy in place. Air Noted. Small amount of Stool. Right Abdominal Pigtail drain, serous fluid present. Extremities: normal inspection, no edema Cranial Nerves: normal hearing Weaning Parameters NIF: 32 Minute Volume: 11.3 Resp rate: 20 Vt: 558 Heart Rate: 80 Weaning Schedule Start Time: 0940 Minute Volume: 8.4 Resp Rate: 23 Vt: 350 Heart Rate: 80 End Time: 1035 Minute Volume: 17.5 Resp Rate: 40 Vt: 435 Heart Rate: 95 Start Time: 1100 Minute Volume: 7.9 Resp Rate: 25 Vt: 388 Heart Rate: 86 End Time: 1235 Minute Volume: 8.8 Resp Rate: 37 Vt: 280 Heart Rate: 89 Current Medications: Current Medications Sig/Ry Start time Last Medication Dose Route Stop Time Status Admin Albuterol Sulfate 3 ML EVERY 4 HRS/AWAKE 09/02 1999 AC 09/18 INH 1217 Albuterol Sulfate 3 ML Q4H PRN 08/27 1000 AC 08/28 INH 1309 Dextrose/Sodium 1,000 ML Q13H 09/16 1515 AC 09/18 Chloride IV 0545 Enoxaparin Sodium 40 MG DAILY 09/03 1000 AC 09/18 SC 0857 Fluconazole 400 MG Q24 09/18 1000 AC 09/18 Sodium Chloride 200 ML IV 0857 Lorazepam 2 MG Q3P PRN 09/07 0800 AC 09/18 IV 1345 Magnesium Oxide 400 MG DAILY 06/05 1000 AC 09/15 PO 0943 Magnesium Sulfate 1 GM ONCE ONE 09/18 0945 DC 09/18 Dextrose/Water 100 ML IV 09/18 1344 1110 Meropenem 1 GM Q8H 09/15 0000 AC 09/18 IV 0757 Morphine Sulfate 2 MG Q3P PRN 09/15 0930 AC 09/18 IV 0757 Norepinephrine 4 MG Q24H 09/16 1115 DC 09/16 Dextrose/Water 250 ML IV 1244 Olanzapine 2.5 MG ONCE ONE 09/18 0915 DC 09/18 IM 09/18 0916 1002 Olanzapine 2.5 MG ONCE ONE 09/18 0030 DC 09/18 IM 09/18 0031 0146 Pantoprazole Sodium 40 MG DAILY 08/27 1000 AC 09/18 IV 0857 Potassium Chloride 10 MEQ Q1H 09/18 0945 DC IV 09/18 1046 Potassium Chloride 20 MEQ Q1H 09/18 0600 DC 09/18 IV 09/18 0701 0756 Potassium Chloride 20 MEQ ONCE ONE 09/17 1600 DC 09/17 IV 09/17 1601 1605 Potassium Chloride 20 MEQ ONCE ONE 09/17 1500 CAN PO 09/17 1501 Potassium Chloride 20 MEQ DAILY 09/12 1000 AC 09/15 PO 0943 Propranolol HCl 10 MG AT BEDTIME 09/07 2200 AC 06 PO 2300 Sertraline HCl 50 MG DAILY 09/07 1301 AC 09/15 PO 0942 Trazodone HCl 200 MG AT BEDTIME 09/07 2200 AC 06 PO 2300 Impression/Plan Impression/Problem List Impression: Ms. Camacho is a 60 year old female with PMH anxiety, depression, COPD , prior episode of severe clostridium difficile infection in 2016, tobacco abuse and gastritis who presented to the [facility] ED after one week of altered mental status, decreased oral intake and possible withdrawl symptoms as her clonazepam was being titrated off per doctor instructions. She was found to be hypotensive, febrile and altered while in the [facility] ED. Neurological Metabolic encephalopathy on admission, likely secondary to severe sepsis from sigmoid perforation/peritonitis. * Alert and follow commands * Strength 5/5 X4 * Psych meds including trazodone, propranolol and sertraline daily * CT head negative for acute intracranial pathology Plan 1.NTD Cardiovascular Sinus tachycardia with T wave changes on admission(resolved).ACS was excluded. Echo showed normal global LV function without wall motion abnormalities and normal pulm artery systolic pressure Over last 24 hour * HR: 66-73 * BP: ~ 140/77 Medications * Propranolol 10 mg at bedtime Plan 1.continue monitor vitals Respiratory Patient initially placed on non-rebreather but was transitioned to high flow nasal cannula/ BiPAP due to tachypnea/apparent respiratory distress. Patient tolerated BiPAP well but was intubated for Ho's procedure, POD# 21, patient remains intubated until 09/15/16 when she was extubated. Noted bilateral pleural effusions on CT chest, patient s/p thoracentesis on 09/02 and again on 09/13. the thoracentesis done on 09/13 was complicated by pneumothorax for which chest tube was placed in the left lung. Recent CTA days ago ruled out PE as a cause of increased O2 requirements. * Patient's physical exam improved comparing to yesterday requiring less 02 demand. There is diminished air entry over lung bilaterally. minimal basilar crackles. * Now on a high flow NC FiO2 of 50%. Pulmonary medications * Albuterol * Nebs Plan 1.TRC/Nebs 2.Aspiration precautions 3.we'll follow chest x-ray was done this morning Renal Had SIERRA on presentation Likely prerenal in the setting of severe sepsis. Kidney function is back to normal after IV hydration. * Continues to have an overall positive balance * Today Cr 0.5 and BUN 14 Plan 1.Continue monitoring renal function Fluids, Electrolytes, and Nutrition (FEN) * K+ 3.4, will replenish with 3 runs of 10 meq * Pending swallowing evaluation this morning * Albumin is 2.4 and prealbumin is 8.9 Plan 1.Repeat chemistry daily Infectious Diseases Patient presented with fever, leukocytosis, hypotension and tachycardia secondary to peritonitis from perforated sigmoid colon with abscess formation, S /P Harmann's procedure with Dr. Armendariz. Blood cultures showed no growth, lower respiratory culture grew pseudomonas (resistent to zosyn) and culture from OR grew E.Coli, alpha/beta strep and brandon. She was placed on IV fluconazole and IV meropenem. IR placed one RUQ drain and one LLQ drain to drain this fluid. LLQ was subsequently taken out but the RUQ drain remains in place. Patient grew Pseudomonas in sputum culture (09/14/16), this was found to be sensitive meropenem. Patient possibly has hospital-acquired pneumonia. Overnight the * Tmax: 98.6 * Current Temp is 98.2 * WBCs: stable at 14.7 from 14.4 yesterday * On Meropenem and Fluconazole Plan 1.Continue to monitor output from the right upper quadrant catheter 3.Continue Meropenem and Fluconazole 4.We will plan abdominal CT once patient condition stable and allows. Hematology Patient given total of 5 U PRBC since admission. Initial had thrombocytopenia likely 2/2 coagulopathly from sepsis, 4Ts score placed patient at low risk for HIT (<5%) so SC lovenox was Resumed on 09/02. H/H stable Plan 1.Follow up CBC daily, monitor for bleeding Problem List: 1. Perforated viscus 2. Status post Ho's procedure Pain Ratin Tomorrow's Labs & Rationales: ICU BUNDLE MAG Plan DVT/Prophylaxis: mechanical, pharmacological Code Status: Full Code
--- NOTE | 2016-09-18 08:31 | NUR ---
@0800-PT AWAKE, ALERT. FOLLOWS COMMANDS. FORGETFUL. ORIENTED TO PERSON ONLY AT THIS TIME. RESTRAINTS-VADIM AND 4PT SOFT CONT FOR SAFETY OF PT AND TUBES. PT CONT TO ATTEMPT TO GET OOB AND PULL AT MULT DRAINS AND BIPAP MASK. PT C/O PAIN TO ABD AND MEDICATED WITH PRN MORPHINE AT THIS TIME. CONT ON BIPAP MACHINE-FIO2 65%. O2SAT 95%, DIM BS TO BASES WITH NONPROD COUGH NOTED. L APICAL CHEST PIGTAIL CATH NOTED TO CT CHAMBER TO WATER SEAL-MIN SERROUS DRAINAGE NOTED. NSR HR 60S. BP STABLE. PT REMAINS NPO DUE TO FAILED SWALLOW EVAL. COLOSTOMY APPLIANCE INTACT-PINK STOMA. MIN YELLOW DRAINAGE NOTED IN OSTOMY BAG. TOBAR IN PLACE WITH ADEQUATE AMTS OF CL YELLOW DRAINAGE. R PERC DRAIN NOTED TO GRAVITY DRAINGE BAG-NO OUTPUT NOTED-FLUSHED WITH 10ML OF NS AT THIS TIME. ALPS IN PLACE. +2 BILAT FEET EDEMA NOTED-ELEVATED ON PILLOWS. MIDLINE ABD DSG CDI. IVF D5NS INFUSING AT 50ML/HR. KCL 20MEQ-2ND BOLUS INFUSING FOR K+3.4 THIS AM. CONT TO MONITOR CLOSELY. CALL TIM WITHIN REACH. 1:1 SITTER CONT AT THIS TIME.
--- NOTE | 2016-09-18 10:11 | PN- Pulmonary ---
Subjective HPI/Critical Care Issues: Patient is awake alert and oxygen has been able to taper to 55% with adequate saturations Objective Current Medications: Current Medications Sig/Ry Start time Last Medication Dose Route Stop Time Status Admin Acetylcysteine 2 ML BID 09/06 1000 DC 09/17 INH 0755 Albuterol Sulfate 3 ML EVERY 4 HRS/AWAKE 09/01 2000 AC 09/18 INH 0839 Albuterol Sulfate 3 ML Q4H PRN 08/27 1000 AC 08/28 INH 1309 Dextrose/Sodium 1,000 ML Q13H 09/16 1515 AC 09/18 Chloride IV 0545 Enoxaparin Sodium 40 MG DAILY 09/03 1000 AC 09/18 SC 0857 Fluconazole 400 MG Q24 09/18 1000 AC 09/18 Sodium Chloride 200 ML IV 0857 Fluconazole 400 MG Q24 09/13 1030 DC 09/17 Sodium Chloride 200 ML IV 0818 Furosemide 20 MG ONCE ONE 09/17 1500 DC 09/17 IV 09/17 1501 1500 Lorazepam 2 MG Q3P PRN 09/07 0800 AC 09/18 IV 0218 Magnesium Oxide 400 MG DAILY 09/12 1000 AC 09/15 PO 0943 Magnesium Sulfate 1 GM ONCE ONE 09/18 0945 AC Dextrose/Water 100 ML IV 09/18 1344 Meropenem 1 GM Q8H 09/15 0000 AC 09/18 IV 0757 Morphine Sulfate 2 MG Q3P PRN 09/15 0930 AC 09/18 IV 0757 Norepinephrine 4 MG Q24H 09/16 1115 DC 09/16 Dextrose/Water 250 ML IV 1244 Olanzapine 2.5 MG ONCE ONE 09/18 0915 DC 09/18 IM 09/18 0916 1002 Olanzapine 2.5 MG ONCE ONE 09/18 0030 DC 09/18 IM 09/18 0031 0146 Pantoprazole Sodium 40 MG DAILY 08/27 1000 AC 09/18 IV 0857 Potassium Chloride 10 MEQ Q1H 09/18 0945 DC IV 09/18 1046 Potassium Chloride 20 MEQ Q1H 09/18 0600 DC 09/18 IV 09/18 0701 0756 Potassium Chloride 20 MEQ ONCE ONE 09/17 1600 DC 09/17 IV 09/17 1601 1605 Potassium Chloride 20 MEQ ONCE ONE 09/17 1500 CAN PO 09/17 1501 Potassium Chloride 20 MEQ DAILY 09/12 1000 AC 09/15 PO 0943 Propranolol HCl 10 MG AT BEDTIME 09/07 2200 AC 09/14 PO 2300 Sertraline HCl 50 MG DAILY 09/07 1301 AC 09/15 PO 0942 Trazodone HCl 200 MG AT BEDTIME 09/07 2200 AC 09/14 PO 2300 Vital Signs & I&O Last 24 Hrs of Vitals and I&O: Vital Signs Date Time Temp Pulse Resp B/P B/P Pulse O2 O2 Flow FiO2 Mean Ox Delivery Rate 09/18 0830 67 97 09/18 0800 97.2 65 26 132/70 95 BIPAP 65% 09/18 0800 96 BIPAP 65% 09/18 0400 97 BIPAP 65% 09/18 0311 71 96 09/18 0012 62 97 09/18 0000 96.4 66 33 140/80 97 BIPAP 65% 09/18 0000 97 BIPAP 65% 09/17 2212 62 97 09/17 2210 97 Nasal 60% Cannula 09/17 2207 53 140/66 09/17 2000 95 Nasal 60% Cannula 09/17 1945 98 Nasal 60% Cannula 09/17 1626 97 Nasal 60% Cannula 09/17 1600 97.2 64 25 140/70 97 BIPAP 65% 09/17 1600 96 BIPAP 65% 09/17 1556 57 98 09/17 1556 98 BIPAP 65% 09/17 1448 88 94 09/17 1218 96 Nasal 60% Cannula 09/17 1200 94 Nasal 60% Cannula Intake & Output 09/18 1600 09/18 0800 09/18 0000 Intake Total 380 470 Output Total 350 1510 Balance 30 -1040 Intake, IV 380 460 Intake, Other 10 Output, Chest 0 10 Tube Drainage Output, 0 0 Drainage Output, Stool 0 0 Output, Urine 350 1500 Patient 146 lb Weight Weight Bed scale Measurement Method For chest shows occasional rhonchi diminished breath sounds at the bases cardiac exam shows regular S1 and S2 abdomen is soft nontender Impression/Plan Impression/Plan Impression/Plan: 60-year-old woman being treated for pseudomonas pneumonia and hypoxic respiratory failure has tolerated extubation. Oxygen requirements are slowly decreasing Recommendations: Taper FiO2 his saturations allow complete course of antibiotics. Aggressive pulmonary toilet. Respiratory status remains stable IR will need to remove pigtail catheter. Mobilize out of bed
--- NOTE | 2016-09-18 10:44 | NUR ---
@1030-HOYERED PT OOB ASSIST X2-VAUGHN WELL. SITTING COMF IN CHAIR. PT MEDICATED WITH 1X IM ZYPREXA ORD. VSS. IV DIFLUCAN INFUSING. PT TO RECIEVE MAG BOLUS 1GM WHEN ARRIVES FROM PHARMACY. CALL TIM WITHIN REACH. ORAL SWABS PROVIDED. REPEAT SWALLOW EVAL ORD.
--- NOTE | 2016-09-18 14:48 | RADIOLOGY REPORT ---
EXAMINATION: XR PORTABLE CHEST CLINICAL INFORMATION: Status post extubation with increased respiratory rate. COMPARISON: 09/17/2016 TECHNIQUE: Portable frontal view of the chest was obtained. FINDINGS: The right arm peripherally inserted catheter remains unchanged in position, terminating in the proximal superior vena cava. The left pleural drainage catheter is in stable position at the medial left apex. There is a pleural drainage catheter at the right lateral costophrenic sulcus. Small pleural effusions are unchanged in size and there is persistent bibasilar opacity, likely atelectasis. No pulmonary edema or other acute interval change. Cardiac mediastinal silhouette has stable size and contour. Thoracic aorta is calcified. No acute skeletal findings. IMPRESSION: No new cardiopulmonary findings compared to 09/17/2016.
[2016-09-18 16:00] VITALS: BP 132/70
[2016-09-19] VITALS: BP 108/62
[2016-09-19 05:12] LABS: ABSOLUTE BASOPHIL COUNT 0.1 /CUMM (0.0-0.2); ABSOLUTE EOSINOPHIL COUNT 0.2 /CUMM (0.0-0.7); ABSOLUTE GRANULOCYTE CT 12.1 /CUMM (1.4-6.5); ABSOLUTE LYMPH COUNT 1.7 /CUMM (1.2-3.4); BASOPHIL % 0.6 % (0.0-2.0); EOSINOPHIL % 1.3 % (0-5); GRANULOCYTE % 80.6 % (42.2-75.2); HEMATOCRIT 26.5 % (37-47); MEAN CORPUSCULAR HGB 29.3 PG (27.0-31.0); MEAN CORPUSCULAR HGB CONC 32.2 G/DL (33.0-37.0); MEAN CORPUSCULAR VOLUME 90.7 FL (81.0-99.0); MEAN PLATELET VOLUME 7.7 FL (7.4-10.4); PLATELET COUNT 830 /CUMM (130-400); RBC DISTRIBUTION WIDTH 16.3 % (11.5-14.5); RED BLOOD CELL CT 2.92 /CUMM (4.20-5.40)
--- NOTE | 2016-09-19 07:19 | PN- Resident CRCU ---
Subjective HPI/CRCU Issues: Afebrile, hemodynamically stable, and saturating well with 65% BiPAP. Patient is laying in bed looks relaxed and comfortable. No acute overnight events reported. Patient denies any currently active complaints. 24 Hour Events: * Tmax: 98.7 * HR: 61-82 * BP: low as 102/57 and highest 153/86 * Oxygen saturation is on the low 90s on 65% BiPAP * Yesterday I/Os 1489/1400 * Total balance to date 43567/39156 (overall positive balance) * Colostomy is filled with mucousy clear fluid. * No sign of infection or infiltration around PICC tube or chest tube * Chest tube drained 100 mL of clear yellow fluid. * Right upper quadrant drain to a total of 35 yesterday Objective Vital Signs & I&O Last 8 Hrs of Vitals and I&O: Intake & Output 09/19 1600 Intake Total Output Total Balance Patient 66.423 kg Weight Weight Bed scale Measurement Method Exam General Appearance: no apparent distress, alert, awake, comfortable, on BiPAP Head: atraumatic, normal appearance Respiratory: no respiratory distress, lungs clear Cardiovascular: regular rate/rhythm Gastrointestinal: normal bowel sounds, soft, non-tender Extremities: normal inspection, no edema Cranial Nerves: PERRL Weaning Parameters NIF: 32 Minute Volume: 11.3 Resp rate: 20 Vt: 558 Heart Rate: 80 Weaning Schedule Start Time: 0940 Minute Volume: 8.4 Resp Rate: 23 Vt: 350 Heart Rate: 80 End Time: 1035 Minute Volume: 17.5 Resp Rate: 40 Vt: 435 Heart Rate: 95 Start Time: 1100 Minute Volume: 7.9 Resp Rate: 25 Vt: 388 Heart Rate: 86 End Time: 1235 Minute Volume: 8.8 Resp Rate: 37 Vt: 280 Heart Rate: 89 Current Medications: Current Medications Sig/Ry Start time Last Medication Dose Route Stop Time Status Admin Albuterol Sulfate 3 ML EVERY 4 HRS/AWAKE 09/02 1999 AC 09/19 INH 0810 Albuterol Sulfate 3 ML Q4H PRN 08/27 999 AC 08/28 INH 1309 Dextrose/Sodium 1,000 ML Q13H 09/16 1515 DC 09/19 Chloride IV 0705 Enoxaparin Sodium 40 MG DAILY 09/03 1000 AC 09/19 SC 0813 Fluconazole 400 MG Q24 09/18 1000 AC 09/19 Sodium Chloride 200 ML IV 0814 Lorazepam 2 MG Q3P PRN 09/07 0800 AC 09/18 IV 1345 Magnesium Oxide 400 MG DAILY 09/12 1000 AC 09/15 PO 0943 Magnesium Sulfate 1 GM ONCE ONE 09/18 0945 DC 09/18 Dextrose/Water 100 ML IV 09/18 1344 1110 Meropenem 1 GM Q8H 09/15 0000 AC 09/19 IV 0812 Morphine Sulfate 2 MG Q3P PRN 09/15 0930 AC 09/18 IV 1600 Olanzapine 2.5 MG ONCE ONE 09/18 0915 DC 09/18 IM 09/18 0916 1002 Pantoprazole Sodium 40 MG DAILY 08/27 1000 AC 09/19 IV 0812 Potassium Chloride 40 MEQ Q13H 09/19 0900 AC Dextrose/Sodium 1,000 ML IV Chloride Potassium Chloride 10 MEQ Q1H 09/18 0945 DC IV 09/18 1046 Potassium Chloride 20 MEQ DAILY 09/12 1000 AC 09/15 PO 0943 Propranolol HCl 10 MG AT BEDTIME 09/07 2200 AC 09/14 PO 2300 Sertraline HCl 50 MG DAILY 09/07 1301 AC 09/15 PO 0942 Trazodone HCl 200 MG AT BEDTIME 09/07 2200 AC 09/14 PO 2300 Impression/Plan Impression/Problem List Impression: Ms. Camacho is a 60 year old female with PMH anxiety, depression, COPD , prior episode of severe clostridium difficile infection in 2016, tobacco abuse and gastritis who presented to the [place] [facility] after one week of altered mental status, decreased oral intake and possible withdrawl symptoms as her clonazepam was being titrated off per doctor instructions. She was found to be hypotensive, febrile and altered while in the [place] ED. Neurological Metabolic encephalopathy on admission, likely secondary to severe sepsis from sigmoid perforation/peritonitis. * Alert and follow commands * Strength 5/5 X4 * Psych meds including trazodone, propranolol, sertraline daily, and Ativan 2mg PRN * CT head negative for acute intracranial pathology Plan 1.NTD Cardiovascular Sinus tachycardia with T wave changes on admission(resolved).ACS was excluded. Echo showed normal global LV function without wall motion abnormalities and normal pulm artery systolic pressure Over last 24 hour * HR: 61-82 * BP: low as 102/57 and highest 153/86 Medications * Propranolol 10 mg at bedtime Plan 1.continue monitor vitals Respiratory Patient initially placed on non-rebreather but was transitioned to high flow nasal cannula/ BiPAP due to tachypnea/apparent respiratory distress. Patient tolerated BiPAP well but was intubated for Ho's procedure, POD# 24, patient remained intubated until 09/15/16. Noted bilateral pleural effusions on CT chest, patient s/p thoracentesis on 09/02 and again on 09/13. the thoracentesis done on 09/13 was complicated by pneumothorax for which chest tube was placed in the left lung. Recent CTA days ago ruled out PE as a cause of increased O2 requirements. * Clear breath sounds bilaterally. no additional sounds. * Now saturating well on high flow 50% oxygen Pulmonary medications * Albuterol * Nebs Plan 1.TRC/Nebs 2.Aspiration precautions 3.Recheck chest x-ray tomorrow Renal Had SIERRA on presentation Likely prerenal in the setting of severe sepsis. Kidney function is back to normal after IV hydration. * Yesterday I/Os (negative balance) * Total balance to date 43620/81676 (overall positive balance) * Today Cr 0.5 and BUN 10 Plan 1.Continue monitoring renal function Fluids, Electrolytes, and Nutrition (FEN) * Na 141, K 3.6 , corrected Ca 9.4 and Mg is 1.9 * Pending swallowing evaluation this morning * Albumin is 2 Plan 1.Repeat chemistry daily 2. Replete potassium 20 mEq IV and add 40 mEq to IV fluid Infectious Diseases Patient presented with fever, leukocytosis, hypotension and tachycardia secondary to peritonitis from perforated sigmoid colon with abscess formation, S /P Harmann's procedure with Dr. Armendariz. Blood cultures showed no growth, lower respiratory culture grew pseudomonas (resistent to zosyn) and culture from OR grew E.Coli, alpha/beta strep and brandon. She was placed on IV fluconazole and IV meropenem. IR placed one RUQ drain and one LLQ drain to drain this fluid. LLQ was subsequently taken out but the RUQ drain remains in place. Patient grew Pseudomonas in sputum culture (09/14/16), this was found to be sensitive meropenem. Patient possibly has hospital-acquired pneumonia. Overnight the * Tmax: 98.7 * Current Temp is 98.7 * WBCs: 15 up from 14.7 yesterday * On Meropenem and Fluconazole Plan 1.Continue to monitor output from the right upper quadrant catheter 2.The catheter drain less than 30 mL per day we will order CT abdomen 3.Continue Meropenem and Fluconazole Hematology Patient given total of 4 U PRBC since admission. Initial had thrombocytopenia likely 2/2 coagulopathly from sepsis, 4Ts score placed patient at low risk for HIT (<5%) so SC lovenox was Resumed on 09/02 * H&H 8.5 & 26.5 * Platelet count 830 * INR 1.26 (on 09/15) Plan 1.Follow up CBC daily, monitor for bleeding FULL CODE DVT prophylaxis: ALPS + SC lovenox Ulcer prophylaxis: Pantoprazole Problem List: 1. Status post Ho's procedure Pain Ratin Tomorrow's Labs & Rationales: ICU bundle and CBC Plan DVT/Prophylaxis: mechanical, pharmacological Code Status: Full Code
[2016-09-19 08:00] VITALS: BP 122/64
--- NOTE | 2016-09-19 08:46 | NUR ---
BI-PAP REPLACED W/ HFNC @ 0820 RT CALLED TO INCREASE HFNC D/T DESAT 86-89% INCREASED RR
--- NOTE | 2016-09-19 08:50 | PN- CRCU ---
Subjective HPI/Critical Care Issues: The patient is awake and alert. She remains on BIPAP. She tolerated high flow oxygen yesterday. She is currently on 50% oxygen. There were no overnight events reported. Colostomy is filled with clear mucus. The patient denies any discomfort or complaints at present. Objective Current Medications: Current Medications Sig/Ry Start time Last Medication Dose Route Stop Time Status Admin Albuterol Sulfate 3 ML EVERY 4 HRS/AWAKE 09/01 2000 AC 09/19 INH 0810 Albuterol Sulfate 3 ML Q4H PRN 08/27 1000 AC 08/28 INH 1309 Dextrose/Sodium 1,000 ML Q13H 09/16 1515 AC 09/19 Chloride IV 0705 Enoxaparin Sodium 40 MG DAILY 09/03 1000 AC 09/19 SC 0813 Fluconazole 400 MG Q24 09/18 1000 AC 09/19 Sodium Chloride 200 ML IV 0814 Lorazepam 2 MG Q3P PRN 09/07 0800 AC 09/18 IV 1345 Magnesium Oxide 400 MG DAILY 09/12 1000 AC 09/15 PO 0943 Magnesium Sulfate 1 GM ONCE ONE 09/18 0945 DC 09/18 Dextrose/Water 100 ML IV 09/18 1344 1110 Meropenem 1 GM Q8H 09/15 0000 AC 09/19 IV 0812 Morphine Sulfate 2 MG Q3P PRN 09/15 0930 AC 09/18 IV 1600 Olanzapine 2.5 MG ONCE ONE 09/18 0915 DC 09/18 IM 09/18 0916 1002 Pantoprazole Sodium 40 MG DAILY 08/27 1000 AC 09/19 IV 0812 Potassium Chloride 10 MEQ Q1H 09/18 0945 DC IV 09/18 1046 Potassium Chloride 20 MEQ DAILY 09/12 1000 AC 09/15 PO 0943 Propranolol HCl 10 MG AT BEDTIME 09/07 2200 AC 09/14 PO 2300 Sertraline HCl 50 MG DAILY 09/07 1301 AC 09/15 PO 0942 Trazodone HCl 200 MG AT BEDTIME 09/07 2200 AC 09/14 PO 2300 Vital Signs & I&O Last 24 Hrs of Vitals and I&O: Vital Signs Date Time Temp Pulse Resp B/P B/P Pulse O2 O2 Flow FiO2 Mean Ox Delivery Rate 09/19 08 95 Nasal 50% Cannula 09/19 08 77 95 09/19 0800 98.7 63 24 122/64 97 BIPAP 65% 09/19 0529 75 94 09/19 0400 95 BIPAP 65% 09/19 0344 79 95 09/19 0032 63 94 09/19 0000 94 BIPAP 65% 09/19 0000 97.6 68 24 108/62 94 BIPAP 65% 09/18 2127 81 94 09/19 1999 93 Nasal 50% Cannula 09/18 1945 92 Nasal 50% Cannula 09/18 1600 97.5 71 26 132/70 94 Nasal 50% Cannula 09/18 1600 94 Nasal 50% Cannula 09/18 1200 96 Nasal 50% Cannula 09/18 0850 98 Nasal 55% Cannula Intake & Output 09/19 1600 09/19 0800 09/19 0000 Intake Total 400 389 Output Total 395 420 Balance 5 -31 Intake, IV 400 389 Intake, Oral 0 0 Output, Chest 5 0 Tube Drainage Output, 30 0 Drainage Output, Stool 0 20 Output, Urine 360 400 Patient 146 lb Weight Weight Bed scale Measurement Method Exam General Appearance: alert, awake Other Physical Findings: Head: atraumatic Neck: normal inspection Respiratory: normal breath sounds Cardiovascular: regular rate/rhythm Gastrointestinal: normal bowel sounds, soft, Colostomy in place. Air and stool in bag. Right Abdominal Pigtail drain, serous fluid present. Extremities: normal inspection, no edema Results Last 24 Hrs of Lab Results: Laboratory Tests 09/19/16 0330: Anion Gap 7, Estimated GFR > 60, Glucose 65, Calcium 7.9 L, Phosphorus 3.9, Magnesium 1.9, Total Bilirubin 0.4, AST 25, ALT 39, Albumin 2.0 L, CBC w Diff NO MAN DIFF REQ, RBC 2.92 L, MCV 90.7, MCH 29.3, RDW 16.3 H, MPV 7.7, Gran % 80.6 H, Lymphocytes % 11.1 L, Monocytes % 6.4, Eosinophils % 1.3, Basophils % 0.6, Absolute Granulocytes 12.1 H, Absolute Lymphocytes 1.7, Absolute Monocytes 1.0 H, Absolute Eosinophils 0.2, Absolute Basophils 0.1, PUBS MCHC 32.2 L Impression/Plan Impression/Plan Impression/Plan: 1. Ongoing hypoxemic respiratory failure, improved over the past few days. 2. Pleural effusion, status post thoracentesis with pneumothorax, left chest tube in place. 3. Status post pericolic abscess with drainage and sigmoid colectomy with end colostomy. 4. Persistent leukocytosis, stable. 5. Thrombocytosis, likely reactive. Recommendations: * Hold off on CT for now per surgery. * Continue BiPAP/high flow as tolerated. * Wean oxygen down for saturations greater than 92%. * Continue TRC/nebs. * Incentive spirometry. * Check repeat swallowing evaluation. * Continue aspiration precautions. * Continue meropenem and Fluconazole as per ID. * Increase activity, out of bed to chair. * Continue all baseline medications. * Continue DVT prophylaxis at all times. Code Status: Full Code
--- NOTE | 2016-09-19 10:38 | PN- Infect Dx ---
Subjective Subjective: Afebrile without complaints Objective Last 24 Hrs of Vital Signs/I&O Vital Signs Date Time Temp Pulse Resp B/P B/P Pulse O2 O2 Flow FiO2 Mean Ox Delivery Rate 09/19 0813 95 Nasal 50% Cannula 09/19 0811 77 95 09/19 0800 97 BIPAP 65% 09/19 08 98.7 63 24 122/64 97 BIPAP 65% 09/19 0529 75 94 09/19 0400 95 BIPAP 65% 09/19 0344 79 95 09/19 0032 63 94 09/19 0000 94 BIPAP 65% 09/19 0000 97.6 68 24 108/62 94 BIPAP 65% 09/18 2127 81 94 09/19 1999 93 Nasal 50% Cannula 09/18 1945 92 Nasal 50% Cannula 09/18 1600 97.5 71 26 132/70 94 Nasal 50% Cannula 09/18 1600 94 Nasal 50% Cannula 09/18 1200 96 Nasal 50% Cannula Intake & Output 09/19 1600 09/19 0800 09/19 0000 Intake Total 400 389 Output Total 395 420 Balance 5 -31 Intake, IV 400 389 Intake, Oral 0 0 Output, Chest 5 0 Tube Drainage Output, 30 0 Drainage Output, Stool 0 20 Output, Urine 360 400 Patient 146 lb Weight Weight Bed scale Measurement Method Physical Exam Other Physical Findings: She appears comfortable on high flow oxygen Chest left chest tube remains in place Lungs are clear Heart regular rhythm with no murmur Abdomen is soft, mildly tender on palpation on the right, with no guarding or rebound, positive bowel sounds; liquid stool in the colostomy; right upper quadrant drain with 35 mL output yesterday Extremities 1+ edema both lower extremities; PICC in the right upper extremity with no inflammation at the site Fulton catheter remains in place Results Last 24 Hours of Lab Results: Laboratory Tests 09/19 0330 Chemistry Sodium (137 - 145 mmol/L) 141 Potassium (3.5 - 5.1 mmol/L) 3.6 Chloride (98 - 107 mmol/L) 106 Carbon Dioxide (22 - 30 mmol/L) 27 Anion Gap (5 - 16) 7 BUN (7 - 17 mg/dL) 10 Creatinine (0.5 - 1.0 mg/dL) 0.5 Estimated GFR (>60 ml/min) > 60 Glucose (65 - 99 mg/dL) 65 Calcium (8.4 - 10.2 mg/dL) 7.9 L Phosphorus (2.5 - 4.5 mg/dL) 3.9 Magnesium (1.6 - 2.3 mg/dL) 1.9 Total Bilirubin (0.2 - 1.3 mg/dL) 0.4 AST (14 - 36 U/L) 25 ALT (9 - 52 U/L) 39 Albumin (3.5 - 5.0 g/dL) 2.0 L Hematology CBC w Diff NO MAN DIFF REQ WBC (4.8 - 10.8 /CUMM) 15.0 H RBC (4.20 - 5.40 /CUMM) 2.92 L Hgb (12.0 - 16.0 G/DL) 8.5 L Hct (37 - 47 %) 26.5 L MCV (81.0 - 99.0 FL) 90.7 MCH (27.0 - 31.0 PG) 29.3 RDW (11.5 - 14.5 %) 16.3 H Plt Count (130 - 400 /CUMM) 830 H MPV (7.4 - 10.4 FL) 7.7 Gran % (42.2 - 75.2 %) 80.6 H Lymphocytes % (20.5 - 51.1 %) 11.1 L Monocytes % (1.7 - 9.3 %) 6.4 Eosinophils % (0 - 5 %) 1.3 Basophils % (0.0 - 2.0 %) 0.6 Absolute Granulocytes (1.4 - 6.5 /CUMM) 12.1 H Absolute Lymphocytes (1.2 - 3.4 /CUMM) 1.7 Absolute Monocytes (0.10 - 0.60 /CUMM) 1.0 H Absolute Eosinophils (0.0 - 0.7 /CUMM) 0.2 Absolute Basophils (0.0 - 0.2 /CUMM) 0.1 PUBS MCHC (33.0 - 37.0 G/DL) 32.2 L Last 24 Hours of [place] Results: Urine culture September 17 negative Assessment/Plan Impression: Appears to be stable, though remains on high flow oxygen with the left chest tube still in place for the pneumothorax that developed after her recent thoracentesis. She remains afebrile with white blood cell count decreased, though still elevated, on Meropenem and Fluconazole now 24 days status post Granger's procedure for polymicrobial peritonitis secondary to a perforated sigmoid colon now 18 days status post drainage of a purulent fluid collection from the right upper quadrant, with the recent CT scan of the abdomen and pelvis not revealing any new drainable collections, and with overall decreased drainage from the right upper quadrant catheter over the last several days. Suggestion: 1. Repeat CT of the abdomen and pelvis when the drainage from her right upper quadrant catheter decreases to less than 30 mL a day as per Surgery 2. Further management of her left chest tube per Surgery 3. Would remove Fulton catheter 4. Continue Meropenem and Fluconazole pending above
--- NOTE | 2016-09-19 10:52 | NUR ---
FAILED BED SIDE SWALLOW CHRISTAL VAZQUEZ(SWALLOW) SUGGESTS BARRIUM SWALLOW D/T HFNC @ 60 % UNABLE TO TRANSPORT W/O PUTTING HER ON NON-REBREATHER INVESTIGATED USE OF PENDENT-PENDANT WOULD NOT MEET PATIENTS O2 DEMANDS GEORGE WILL RE-EVALUATE AT BEDSIDE IN AM
--- NOTE | 2016-09-19 10:58 | NUR ---
@0800 AFEBRILE,DENIES PAIN,ALERT TO NAME,,YEAR,JULIETH, FOLLOWING COMMANDS,SLOAN,ANSWERING APPROP.,FORGETFUL AT TIMES,ALTHOUGH AWAKE AND ORIENTED PULLING AT LINES AT TIMES;1:1 RN/SITTER, NSR 60-80,BP 126/64, DENIES CP, BI-PAP 65%,O2 SAT 97%;RONCHI,NON PRODUCTIVE COUGH; LCW PIGTAIL CHEST TUBE TO WATER SEAL HYPOACTIVE B.S. MIDLINE ABD SCAR LOWER ABD AT SURG SITE OPENING SERROUS SCANT OUTPUT NO S/S INFECTION, FAILED SWALLOW EVAL, TOBAR INTACT ADEQUATE AMOUNT C/Y U/O LEFT ABD COLOSTOMY MUCOUS JELLY TO WATERY YELLOW OUTPUT RUQ PERC DRAIN SERROUS SCANT OUTPUT FLUSHED W/ 1OMLS SALINE ANASTACIA PICC SITE WNL D5NS CHANGED TO D5NS W/ 40KCL @ 50MLS/HR POTASSIUM 3.6 TOTAOL 20 MEQ TO BE GIVEN, SPECIALITY BED IN PLACE OALPS BED LOCKED IN LOW POSITION WILL CONTINUE TO CLOSELY MONITOR
[2016-09-19 16:00] VITALS: BP 140/80
[2016-09-20] VITALS: BP 146/70
[2016-09-20 04:39] LABS: ABSOLUTE BASOPHIL COUNT 0 /CUMM (0.0-0.2); ABSOLUTE EOSINOPHIL COUNT 0.1 /CUMM (0.0-0.7); ABSOLUTE GRANULOCYTE CT 12.9 /CUMM (1.4-6.5); ABSOLUTE LYMPH COUNT 1.2 /CUMM (1.2-3.4); ABSOLUTE MONOCYTE COUNT 0.8 /CUMM (0.10-0.60); BASOPHIL % 0.1 % (0.0-2.0); EOSINOPHIL % 0.7 % (0-5); GRANULOCYTE % 85.3 % (42.2-75.2); HEMATOCRIT 25.5 % (37-47); MEAN CORPUSCULAR HGB 29.3 PG (27.0-31.0); MEAN CORPUSCULAR HGB CONC 32.3 G/DL (33.0-37.0); MEAN CORPUSCULAR VOLUME 90.6 FL (81.0-99.0); MEAN PLATELET VOLUME 7.8 FL (7.4-10.4); PLATELET COUNT 833 /CUMM (130-400); RBC DISTRIBUTION WIDTH 16.5 % (11.5-14.5); RED BLOOD CELL CT 2.82 /CUMM (4.20-5.40); WHITE BLOOD CELL COUNT 15.1 /CUMM (4.8-10.8)
--- NOTE | 2016-09-20 07:42 | PN- Resident CRCU ---
JOSE BAILEY,[facility] 09/20/16 0742: Subjective HPI/CRCU Issues: Had a temperature of 100.5 this a.m. Hemodynamically stable. Patient was on BiPAP 60% starting midnight, switched to high flow NC 50% this am, she is saturating well on both. Patient denies any current active complaints. She still nothing by mouth waiting for pending modified swallow eval today. 24 Hour Events: * Tmax: 100.5 * HR: 63-86 * BP: low as 122/64 and highest 169/78 * Oxygen saturation is on the low 90s on 60% BiPAP * Yesterday I/Os 808/1210 * Total balance to date 36405/16735 (overall positive balance) * No sign of infection or infiltration around PICC tube or chest tube * Colostomy is filled with mucousy clear fluid. gave 60 ml over night * Chest tube drained 0 mL since yesterday * Right upper quadrant drains 0 since yesterday Objective Vital Signs & I&O Last 8 Hrs of Vitals and I&O: Intake & Output 09/20 1600 Intake Total Output Total Balance Patient 65.119 kg Weight Weight Bed scale Measurement Method Exam General Appearance: no apparent distress, alert, awake Head: atraumatic, normal appearance, dry mucous membrane Respiratory: normal breath sounds, chest non-tender, no respiratory distress, quiet respiration Cardiovascular: regular rate/rhythm Gastrointestinal: soft, non-tender Extremities: normal inspection, no edema Weaning Parameters NIF: 32 Minute Volume: 11.3 Resp rate: 20 Vt: 558 Heart Rate: 80 Weaning Schedule Start Time: 0940 Minute Volume: 8.4 Resp Rate: 23 Vt: 350 Heart Rate: 80 End Time: 1035 Minute Volume: 17.5 Resp Rate: 40 Vt: 435 Heart Rate: 95 Start Time: 1100 Minute Volume: 7.9 Resp Rate: 25 Vt: 388 Heart Rate: 86 End Time: 1235 Minute Volume: 8.8 Resp Rate: 37 Vt: 280 Heart Rate: 89 Current Medications: Current Medications Sig/Ry Start time Last Medication Dose Route Stop Time Status Admin Albuterol Sulfate 3 ML EVERY 4 HRS/AWAKE 09/02 1999 AC 09/20 INH 0754 Albuterol Sulfate 3 ML Q4H PRN 08/27 999 AC 08/28 INH 1309 Enoxaparin Sodium 40 MG DAILY 09/03 999 AC 09/19 SC 0813 Fluconazole 400 MG Q24 09/18 1000 AC 09/19 Sodium Chloride 200 ML IV 0814 Lorazepam 2 MG Q3P PRN 09/07 0800 AC 09/20 IV 0043 Magnesium Oxide 400 MG DAILY 09/12 1000 AC 09/15 PO 0943 Meropenem 1 GM Q8H 09/15 0000 AC 09/20 IV 0750 Morphine Sulfate 2 MG Q3P PRN 09/15 0930 AC 09/20 IV 0750 Pantoprazole Sodium 40 MG DAILY 08/27 1000 AC 09/19 IV 0812 Potassium Chloride 20 MEQ Q1H 09/20 0800 DC 09/20 IV 09/20 0901 0801 Potassium Chloride 20 MEQ Q8H 09/20 0700 DC Sodium Chloride 1,000 ML IV 09/20 1059 Potassium Chloride 10 MEQ Q1H 09/19 1000 DC 09/19 IV 09/19 1101 1115 Potassium Chloride 40 MEQ Q13H 09/19 0900 AC 09/19 Dextrose/Sodium 1,000 ML IV 2257 Chloride Potassium Chloride 20 MEQ DAILY 09/12 1000 AC 09/15 PO 0943 Propranolol HCl 10 MG AT BEDTIME 09/07 2200 AC 09/14 PO 2300 Sertraline HCl 50 MG DAILY 09/07 1301 AC 09/15 PO 0942 Trazodone HCl 200 MG AT BEDTIME 09/07 2200 AC 09/14 PO 2300 Impression/Plan Impression/Problem List Impression: Ms. Camacho is a 60 year old female with PMH anxiety, depression, COPD , prior episode of severe clostridium difficile infection in 2016, tobacco abuse and gastritis who presented to the [place] [facility] after one week of altered mental status, decreased oral intake and possible withdrawl symptoms as her clonazepam was being titrated off per doctor instructions. She was found to be hypotensive, febrile and altered while in the [place] ED. Neurological Metabolic encephalopathy on admission, likely secondary to severe sepsis from sigmoid perforation/peritonitis. * Alert and follow commands * Strength 5/5 X4 * Psych meds including trazodone, propranolol, sertraline daily, and Ativan 2mg PRN * CT head negative for acute intracranial pathology Plan 1.NTD Cardiovascular Sinus tachycardia with T wave changes on admission(resolved).ACS was excluded. Echo showed normal global LV function without wall motion abnormalities and normal pulm artery systolic pressure Over last 24 hour * HR: 63-86 * BP: low as 122/64 and highest 169/78 Medications * Propranolol 10 mg at bedtime Plan 1.continue monitor vitals Respiratory Patient initially placed on non-rebreather but was transitioned to high flow nasal cannula/ BiPAP due to tachypnea/apparent respiratory distress. Patient tolerated BiPAP well but was intubated for Ho's procedure, POD# 24, patient remained intubated until 09/15/16. Noted bilateral pleural effusions on CT chest, patient s/p thoracentesis on 09/02 and again on 09/13. the thoracentesis done on 09/13 was complicated by pneumothorax for which chest tube was placed in the left lung. Recent CTA days ago ruled out PE as a cause of increased O2 requirements. * Clear breath sounds bilaterally. no additional sounds. * Now saturating well on high flow 50% oxygen * Left side chest tube drained 0 over night. Pulmonary medications * Albuterol * Nebs Plan 1.TRC/Nebs 2.Aspiration precautions Renal Had SIERRA on presentation Likely prerenal in the setting of severe sepsis. Kidney function is back to normal after IV hydration. * Yesterday I/Os 808/1210 * Total balance to date 10104/76907 (overall positive balance) * Today Cr 0.5 and BUN 12 Plan 1.Continue monitoring renal function 2. IV Lasix 20 mg once 3. Continue strict I/Os Fluids, Electrolytes, and Nutrition (FEN) * Na 141, K 3.6 , and Mg is 1.7 * Pending swallowing evaluation today * Albumin is 2 yesterday Plan 1.Repeat chemistry daily 2.Replete potassium 20 mEq IV X2 3.Continue 40 mEq to IV fluid. 4.Magnesium 1 mg IV X2 Infectious Diseases Patient presented with fever, leukocytosis, hypotension and tachycardia secondary to peritonitis from perforated sigmoid colon with abscess formation, S /P Harmann's procedure with Dr. Armendariz. Blood cultures showed no growth, lower respiratory culture grew pseudomonas (resistent to zosyn) and culture from OR grew E.Coli, alpha/beta strep and brandon. She was placed on IV fluconazole and IV meropenem. IR placed one RUQ drain and one LLQ drain to drain this fluid. LLQ was subsequently taken out but the RUQ drain remains in place. Patient grew Pseudomonas in sputum culture (09/14/16), this was found to be sensitive meropenem. Patient possibly has hospital-acquired pneumonia. Overnight the * Tmax: 100.5 * Current Temp is 99.1 * WBCs: 15.1 * On Meropenem and Fluconazole Plan 1.Continue to monitor output from the right upper quadrant catheter 2.The catheter drain less than 30 mL since yesterday, we will order CT abdomen today. 3.Continue Meropenem and Fluconazole for now Hematology Patient given total of 4 U PRBC since admission. Initial had thrombocytopenia likely 2/2 coagulopathly from sepsis, 4Ts score placed patient at low risk for HIT (<5%) so SC lovenox was Resumed on 09/02 * H&H 8.2 & 25.5 * Platelet count 833 * INR 1.26 (on 09/15) Plan 1.Follow up CBC daily, monitor for bleeding FULL CODE DVT prophylaxis: ALPS + SC lovenox Ulcer prophylaxis: Pantoprazole Problem List: 1. Status post Ho's procedure Pain Ratin Tomorrow's Labs & Rationales: ICU bundle and CBC Plan DVT/Prophylaxis: mechanical, pharmacological Code Status: Full Code ABELARDO CARIAS MD 09/20/16 0836: Attending MD Review Statement Attending Sign Off Attending Cosign Statement: I have: examined this patient, reviewed avalbl EMR data, personally reviewd images, discussd w/resident/PA/FHA UNDERWRITER, discussed mgmt plan w/kavya, discussed mgmt plan w/CM, discussed mgmt plan w/pt, agreed w/resident/PA/FHA UNDERWRITER, amended to note. Other Findings: Abelardo Diamond M.D. have examined this patient, reviewed available EMR data, personally reviewed images, discussed with resident/PA/FHA UNDERWRITER, discussed management plan with housestaff and nursing staff, discussed managment plan all of healthcare providers, discussed management plan with patient and/or family, agreed with resident/PA/FHA UNDERWRITER. The past history and parts of the chart have been autopopulated. Plan for CT CAP if no ptx, IR to remove chest tube cont abx TTS 35 min
[2016-09-20 08:00] VITALS: BP 136/80
--- NOTE | 2016-09-20 09:31 | PN- Psychiatry ---
Assessment/Plan Impression: Identifying Info: 60-year-old female with a history of unspecified anxiety disorder and unspecified depressive disorder treated at [facility] presents to [facility] emergency department on 08/25/2016 with altered mental status. Subsequently found to be septic and has had complicated hospital course. She was restarted on her psychotropic medications on 09/07 but has been nothing by mouth for a number of days and is subsequently had mood issues. SUBJECTIVE Patient states "I'm so many things I want to do before I go flat." Today she denies any issues with sadness but endorses high anxiety. Discussed with her the possibility of altering her medication due to her inability to take her sertraline, trazodone, and propranolol by mouth. She declined any changes at this time but was agreeable to having a plan in place if she needed to switch to sublingual medication. Brief ROS Gait: Not observed Sleep: Adequate Appetite: Did not assess OBJECTIVE Mental Status Exam Presentation/Appearance: Calm. Cooperative with evaluation. Hospital garb. Orientation: Oriented to self and place, states date is "July 04, 2016" Sensorium: Awake and alert Eye contact: Fair Affect: somewhat constructed, congruent Mood: Anxious Depression: Denies Anxiety: Endorses Thought Content: - Denies SI/HI, AH/VH, PI. States and also believes they will not kill themselves. - Denies Hopeless/Helpless Thoughts Thought Process: Linear but endorses issues with confusion Associations: Appropriate Speech: Soft & dysarthric Judgment: Fair Insight: Intact Cognition: Memory: Endorses issues Attention/Concentration: Grossly intact Fund of Knowledge: Adequate Abstractions: Did not assess MMSE: Did not assess Per nursing report the patient has been quite anxious without her regularly scheduled by mouth medications. Per house staff report they've noticed issues with anxiety and mood since patient has been nothing by mouth. She has failed swallow evals on four consecutive days and is having another todayl. Would like to have a plan in place for psychotropics if pt continues to be unable to take medication by mouth. ASSESSMENT 60-year-old female experiencing a marked increase in anxiety mood symptoms since discontinuation of by mouth medications 4 days ago. It is not clear when she will be able to restart taking her medications by mouth at this point. If the patient agrees to medication change would be prudent to consider medications as below that are available in our formulary. Of note, the patient would not like to change medications at this time and would rather wait and see if she can pass swallow eval. Diagnosis Unspecified anxiety disorder Unspecified depressive disorder A total of 30 minutes was spent with the patient with more than 50% of the time spent in counseling and/or coordination of care. Suggestion: 1. If patient consents to change her medications would recommend the following: - Mirtazapine sublingual tab 15 mg daily at bedtime, with plan to titrate up in 1 week - Olanzapine sublingual tab 2.5 mg daily at bedtime could be utilized as adjunct agent for mood and anxiety - Propranolol 10 mg daily at bedtime could be switched to IV dosing 2. Continue lorazepam as currently ordered. Thank you for including psychiatry in this case we'll continue to follow. Subjective Subjective: as above Objective Last 24 Hrs of Vital Signs/I&O Current Medications Sig/Ry Start time Last Medication Dose Route Stop Time Status Admin Albuterol Sulfate 3 ML EVERY 4 HRS/AWAKE 09/01 2000 AC 09/20 INH 0754 Albuterol Sulfate 3 ML Q4H PRN 08/27 1000 AC 08/28 INH 1309 Enoxaparin Sodium 40 MG DAILY 09/03 1000 AC 09/20 SC 0950 Fluconazole 400 MG Q24 09/18 1000 AC 09/20 Sodium Chloride 200 ML IV 0950 Lorazepam 2 MG Q3P PRN 09/07 0800 AC 09/20 IV 0043 Magnesium Oxide 400 MG DAILY 09/12 1000 AC 09/15 PO 0943 Meropenem 1 GM Q8H 09/15 0000 AC 09/20 IV 0750 Morphine Sulfate 2 MG Q3P PRN 09/15 0930 AC 09/20 IV 0750 Pantoprazole Sodium 40 MG DAILY 08/27 1000 AC 09/20 IV 0950 Potassium Chloride 20 MEQ Q1H 09/20 0800 DC 09/20 IV 09/20 0901 0912 Potassium Chloride 20 MEQ Q8H 09/20 0700 DC Sodium Chloride 1,000 ML IV 09/20 1059 Potassium Chloride 10 MEQ Q1H 09/19 1000 DC 09/19 IV 09/19 1101 1115 Potassium Chloride 40 MEQ Q13H 09/19 0900 AC 09/19 Dextrose/Sodium 1,000 ML IV 2257 Chloride Potassium Chloride 20 MEQ DAILY 09/12 1000 AC 09/15 PO 0943 Propranolol HCl 10 MG AT BEDTIME 09/07 2199 AC 09/14 PO 2300 Sertraline HCl 50 MG DAILY 09/07 1301 AC 09/15 PO 0942 Trazodone HCl 200 MG AT BEDTIME 09/07 2199 AC 09/14 PO 2300 Laboratory Tests 09/20/16 0325: Anion Gap 6, Estimated GFR > 60, BUN/Creatinine Ratio 12.0, Calcium 7.9 L, Phosphorus 3.3, Magnesium 1.7, CBC w Diff NO MAN DIFF REQ, RBC 2.82 L, MCV 90.6 , MCH 29.3, RDW 16.5 H, MPV 7.8, Gran % 85.3 H, Lymphocytes % 8.3 L, Monocytes % 5.6, Eosinophils % 0.7, Basophils % 0.1, Absolute Granulocytes 12.9 H, Absolute Lymphocytes 1.2, Absolute Monocytes 0.8 H, Absolute Eosinophils 0.1 , Absolute Basophils 0, PUBS MCHC 32.3 L Vital Signs Date Time Temp Pulse Resp B/P B/P Pulse O2 O2 Flow FiO2 Mean Ox Delivery Rate 09/20 0835 94 Nasal 50% Cannula 09/20 0800 99.1 72 22 136/80 98 Nasal 50% Cannula 09/20 0800 97 Nasal 50% Cannula 09/20 0743 79 98 09/20 0532 80 96 09/20 0400 97 BIPAP 60% 09/20 0233 81 95 09/20 0043 82 94 09/20 0000 95 BIPAP 60% 09/20 0000 100.5 80 24 146/70 95 BIPAP 60% 09/19 2215 81 95 09/19 2000 90 Nasal 60% Cannula 09/19 1614 87 Nasal 60% Cannula 09/19 1600 95 Nasal 60% Cannula 09/19 1600 99.4 75 75 140/80 95 Nasal 60% Cannula 09/19 1200 93 Nasal 60% Cannula Intake & Output 09/20 1600 09/20 0800 09/20 0000 Intake Total 383 425 Output Total 400 450 Balance -17 -25 Intake, IV 383 425 Intake, Oral 0 0 Output, Chest 0 0 Tube Drainage Output, 0 0 Drainage Output, Stool 50 0 Output, Urine 350 450 Patient 144 lb Weight Weight Bed scale Measurement Method
--- NOTE | 2016-09-20 09:35 | RADIOLOGY REPORT ---
EXAMINATION: XR PORTABLE CHEST CLINICAL INFORMATION: High oxygen requirement post extubation 5 days ago COMPARISON: 09/18/2016 TECHNIQUE: Portable frontal view of the chest was obtained. FINDINGS: Pigtail catheter overlies the left apex, unchanged. Right-sided PICC line remains in place. Cardiac leads overlie the chest. The lungs are well expanded. Increasing small bilateral pleural effusions with associated airspace opacity. No pneumothorax. The cardiomediastinal silhouette is unchanged, with a calcified aorta. IMPRESSION: Increasing small bilateral pleural effusions with associated airspace opacity.
--- NOTE | 2016-09-20 09:58 | PN- Infect Dx ---
Subjective Subjective: MAXIMUM TEMPERATURE 100.5 without complaints. Objective Last 24 Hrs of Vital Signs/I&O Vital Signs Date Time Temp Pulse Resp B/P B/P Pulse O2 O2 Flow FiO2 Mean Ox Delivery Rate 09/20 0835 94 Nasal 50% Cannula 09/20 0800 99.1 72 22 136/80 98 Nasal 50% Cannula 09/20 0800 97 Nasal 50% Cannula 09/20 0743 79 98 09/20 0532 80 96 09/20 0400 97 BIPAP 60% 09/20 0233 81 95 09/20 0043 82 94 09/20 0000 95 BIPAP 60% 09/20 0000 100.5 80 24 146/70 95 BIPAP 60% 09/19 2215 81 95 09/19 2000 90 Nasal 60% Cannula 09/19 1614 87 Nasal 60% Cannula 09/19 1600 95 Nasal 60% Cannula 09/19 1600 99.4 75 75 140/80 95 Nasal 60% Cannula 09/19 1200 93 Nasal 60% Cannula Intake & Output 09/20 1600 09/20 0800 09/20 0000 Intake Total 383 425 Output Total 400 450 Balance -17 -25 Intake, IV 383 425 Intake, Oral 0 0 Output, Chest 0 0 Tube Drainage Output, 0 0 Drainage Output, Stool 50 0 Output, Urine 350 450 Patient 144 lb Weight Weight Bed scale Measurement Method Physical Exam Other Physical Findings: She appears comfortable on high flow oxygen in no acute distress Lungs are clear Chest chest tube remains in place in the left upper chest, with slight erythema at the site Heart irregular rhythm with no murmur Abdomen is soft, nontender with positive bowel sounds; liquid stool in the colostomy; right upper quadrant drain with serous fluid in the catheter, with no output recorded over the past 24 hours Extremities no cyanosis, clubbing or edema; PICC in the right upper extremity with no inflammation at the site Fulton catheter remains in place Results Last 24 Hours of Lab Results: Laboratory Tests 09/20 0325 Chemistry Sodium (137 - 145 mmol/L) 141 Potassium (3.5 - 5.1 mmol/L) 3.6 Chloride (98 - 107 mmol/L) 107 Carbon Dioxide (22 - 30 mmol/L) 28 Anion Gap (5 - 16) 6 BUN (7 - 17 mg/dL) 6 L Creatinine (0.5 - 1.0 mg/dL) 0.5 Estimated GFR (>60 ml/min) > 60 BUN/Creatinine Ratio (7 - 25 %) 12.0 Calcium (8.4 - 10.2 mg/dL) 7.9 L Phosphorus (2.5 - 4.5 mg/dL) 3.3 Magnesium (1.6 - 2.3 mg/dL) 1.7 Hematology CBC w Diff NO MAN DIFF REQ WBC (4.8 - 10.8 /CUMM) 15.1 H RBC (4.20 - 5.40 /CUMM) 2.82 L Hgb (12.0 - 16.0 G/DL) 8.2 L Hct (37 - 47 %) 25.5 L MCV (81.0 - 99.0 FL) 90.6 MCH (27.0 - 31.0 PG) 29.3 RDW (11.5 - 14.5 %) 16.5 H Plt Count (130 - 400 /CUMM) 833 H MPV (7.4 - 10.4 FL) 7.8 Gran % (42.2 - 75.2 %) 85.3 H Lymphocytes % (20.5 - 51.1 %) 8.3 L Monocytes % (1.7 - 9.3 %) 5.6 Eosinophils % (0 - 5 %) 0.7 Basophils % (0.0 - 2.0 %) 0.1 Absolute Granulocytes (1.4 - 6.5 /CUMM) 12.9 H Absolute Lymphocytes (1.2 - 3.4 /CUMM) 1.2 Absolute Monocytes (0.10 - 0.60 /CUMM) 0.8 H Absolute Eosinophils (0.0 - 0.7 /CUMM) 0.1 Absolute Basophils (0.0 - 0.2 /CUMM) 0 PUBS MCHC (33.0 - 37.0 G/DL) 32.3 L Last 24 Hours of [place] Results: No recent cultures Recent Imaging Studies: Chest x-ray September 20, personally reviewed, reveals increasing bilateral pleural effusions and airspace opacities Assessment/Plan Impression: Overall stable, though remains on high flow oxygen with the left chest tube still in place for the pneumothorax that developed after her recent thoracentesis, and with a low-grade fever overnight, possibly secondary to atelectasis or fluid overload, with today's chest x-ray revealing increasing bilateral effusions and opacities. She remains on Meropenem and Fluconazole now 25 days status post Granger's procedure for polymicrobial peritonitis secondary to a perforated sigmoid colon now 19 days status post drainage of a purulent fluid collection from the right upper quadrant, with overall decreased drainage from the right upper quadrant catheter over the last several days. Her white blood cell count remains mildly elevated without any significant foreign exchange dealer the past week. Suggestion: 1. Repeat CT of the abdomen and pelvis today if feasible 2. Consider need for additional doses of Lasix 3. Further management of her left chest tube per Surgery 4. Would remove Fulton catheter 5. Continue Meropenem and Fluconazole pending above
--- NOTE | 2016-09-20 12:00 | RADIOLOGY REPORT ---
EXAMINATION: XR MODIFIED BARIUM SWALLOW CLINICAL INFORMATION: Dysphagia and intermittent cough status post extubation. COMPARISON: None. TECHNIQUE: Fluoroscopic assistance was provided during a modified barium swallow performed in coordination with the speech pathology service. FLUOROSCOPY TIME: 1 minute, 45 seconds NUMBER OF SAVED IMAGES: 13 FINDINGS: The modified barium swallow examination was performed in cooperation with the speech pathologist using dynamic fluoroscopic imaging in a lateral projection. The patient's swallowing function was observed during administration of apple sauce puree, honey, nectar, thin barium contrast, and barium coated bread. Prior to triggering of swallows, there was spillage of barium coated applesauce honey and nectar from the oral cavity into the vallecula. Also, there was spillage of thin barium contrast material to the level of the piriform sinuses. However, no episodes of tracheal aspiration or penetration. IMPRESSION: There was pre-deglutition spillage of contrast into vallecula and/or piriform sinuses. However, no evidence of tracheal aspiration or penetration.
--- NOTE | 2016-09-20 13:14 | CT SCAN REPORT ---
EXAMINATION: CT CHEST WITH IV CONTRAST CT ABDOMEN AND PELVIS WITH IV CONTRAST CLINICAL INFORMATION: 60-year-old female with fever. Prolonged intubation, status post extubation. Follow-up abdominal fluid collections. COMPARISON: CT chest, abdomen and pelvis from 09/12/2016. Chest CT from 09/13/2016. TECHNIQUE: Multidetector CT imaging examination of the chest, abdomen and pelvis was performed with intravenous administration of 94 mL of Optiray 320. Axial images are displayed at 5 mm and 0.625 mm slice thickness. Coronal and sagittal reformatted images were generated at the technologist's workstation and submitted for review. DLP: 553 mGy-cm FINDINGS: CHEST - LUNGS and PLEURA: Moderate pleural effusions. The right pleural effusion remain similar in size compared to 09/12/2016 whereas the left pleural effusion is slightly larger compared to 09/12/2016. Lower lobes remain completely collapsed and surrounded by the pleural effusions. Mild compressive atelectasis is present in the posterior aspect of each upper lobe. Persistent mild, subsegmental atelectasis within the lingula. New, small area of atelectasis in the anterior left upper lobe. The left pneumothorax of 09/13/2016 has resolved and the left pleural catheter is in satisfactory position within the medial left apex. MEDIASTINUM: The right arm peripherally inserted catheter extends into the proximal superior vena cava. The heart size is normal. Mild atherosclerotic calcification of coronary arteries. There is atherosclerotic calcification of the aortic arch and major branch vessels. No aortic aneurysm or dissection. No pericardial effusion. The esophagus and thyroid gland are unremarkable. LYMPHATICS: No pathologic sized axillary, hilar or mediastinal lymph nodes. CHEST WALL/BONES: Multilevel degenerative disc space narrowing and osteophyte formation of the lower cervical and thoracic spine. No aggressive osseous lesions. ABDOMEN AND PELVIS - HEPATOBILIARY: Simple cysts within right and left lobes of liver are unchanged. No interval development of suspicious hepatic lesion or intrahepatic bile duct dilatation. Gallbladder is unremarkable. PANCREAS: Unremarkable. SPLEEN: Again noted are splenic infarcts. ADRENAL GLANDS: Unremarkable. KIDNEYS, URETERS, BLADDER: Kidneys and ureters are unremarkable. Urinary bladder is decompressed by a Fulton catheter. GASTROINTESTINAL TRACT: There is a descending colostomy of the left abdominal wall and oversewn rectosigmoid pouch within the pelvis. Within the lower pelvis, a fluid-filled loop of small bowel is 3.3 cm AP diameter, not significantly changed in size compared to 09/12/2016 and probably reflective of mild ileus. This no convincing bowel obstruction. PERITONEAL CAVITY: Again noted is a percutaneous drainage catheter within the right perihepatic fluid, at which point the fluid collection is approximately 1 cm in maximal width, slightly smaller compared to 09/12/2016. The peripherally enhancing fluid component at the inferior aspect of the right hepatic lobe extending into Morison's pouch is slightly smaller, as well. For example, the pocket along the inferior edge of the right hepatic lobe is 2 cm transverse, 5 cm AP compared to 2.7 cm transverse, 6 cm AP on 09/12/2014 (images 69-71, series 2). A small amount fluid within the lesser sac is not significantly changed. There has been significant decrease in volume of fluid in the left lower paracolic gutter and extending into the deep pelvis with no significant residual, measurable collection in these regions. ABDOMINAL WALL: Anasarca with persistent, extensive edema of the abdominal wall, flanks and thighs. Small focus of gas in superficial subcutaneous tissues of the right lower abdominal wall may be due to recent medication injection. Small amount of fluid again observed in the midline abdominal wound. VASCULAR: Calcific atherosclerosis of the abdominal aorta and iliac arteries without aneurysm. The dilated gonadal/parauterine veins are unchanged and there is no evidence of gonadal vein thrombosis. LYMPH NODES: No enlarging lymph nodes in the abdomen or pelvis. PELVIC VISCERA: There is edema within the presacral space. No new fluid collections in the pelvis. OSSEOUS STRUCTURES: Multilevel degenerative arthropathy of the spine. No acute skeletal findings compared to 09/12/2016. IMPRESSION: 1. Persistent anasarca. Moderate bilateral pleural effusions. The right pleural effusion remains similar in size compared to 09/12/2016 whereas the left pleural effusion has increased. The left pneumothorax with 09/13/2016 has resolved with pleural catheter located in the medial left apex. 2. The right and left lower lobes remain collapsed and surrounded by the pleural effusions. 3. The rim-enhancing fluid pockets in the abdomen and pelvis have decreased in size compared to 09/12/2016. There are no new fluid collections.
--- NOTE | 2016-09-20 15:23 | NUR ---
@0800-PT ALERT AND ORIENTED TO PERSON ONLY. PT HALLUCINATING AT TIMES AND SEEING DOGS AT BEDSIDE. 1:1 SITTER CONT FOR SAFETY OF MULT TUBES AND DRAINS. PT REMAINS RESTLESS AND CONT TO PULL AT TUBES. PSYCH REEVAL FOR ? MED INPUT DUE TO UNABLE TO TAKE PO DUE TO FAILED SWALLOW EVALS. PT MEDICATED WITH MORPHINE DUE TO PT C/O PAIN AT THIS TIME. BIPAP MASK REMOVED BY RT AND PLACED ON HIFLO NC 50%. PROD COUGH OF YELLOW PHLEGM NOTED. O2SAT 94-96%. LCW PIGTAIL CT REMAINS IN PLACE TO H2O SEAL, NO DRAINAGE NOTED. NSR HR 60-80S. BP 120S-130S. SWALLOW EVAL TO BE REPEATED AT BEDSIDE THIS AM. COLOSTOMY IN PLACE TO L ABD WITH LIQ BROWN STOOL. ABD SOFT, +BS NOTED. TOBAR IN PLACE, ADEQUATE OUTPUT NOTED. MIDLINE STAPLE LINE HEALING WITH OPEN AREA TO PROXIMAL END OF INCISION-DSD IN PLACE. ALPS IN PLACE. PICC LINE TO ANASTACIA WITH IVF D5NS WITH 40MEQKCL INFUSING AT 50ML/HR. K+3.6 THIS AM-TO RECIEVE 2 RUNS KCL 20MEQ EACH. CONT TO MONITOR CLOSELY, CALL TIM WITHIN REACH.
--- NOTE | 2016-09-20 15:29 | NUR ---
@1100-THIS RN TRAVELED WITH PT TO CT FOR CTSCAN OF CHEST, ABD, PELVIS WITH IV CONTRAST. PT VAUGHN WELL ON 10L NC PENDANT DUE TO UNABLE TO TRAVEL WITH HIFLO. PT THEN TRANSPORTED TO RADIOLOGY FOR MBS. PT VAUGHN WELL. TRANSPORTED BACK TO ICU AND CRISTÓBAL LIFTED TO CHAIR. SITTER REMAINS AT BEDSIDE. PT TO START ON DIET REG GROUND WITH THIN LIQS. @1200-PT MEDICATED WITH 1X OF LASIX 20MG AT THIS TIME. SISTER AT BEDSIDE AND UPDATED. ACCUCHECK 94. CONT TO MONITOR.
--- NOTE | 2016-09-20 15:32 | NUR ---
@1530-LCW PIGTAIL CT REMOVED AT THIS TIME BY INTERVENTIAL RADIOLOGIST. DSG TO SITE CDI. PT HOYERED BACK TO BED AT 1430 AND ASSISTED TO COMF POSITION. SKIN INTACT. LOTION APPLIED AND PILLOW PLACED TO BONY PROMINENCES. IVF CONT. POOR APPETITE WITH LUNCH. WILL ADMINISTER PREV AM MEDS WITH APPLESAUCE THIS AFTERNOON. SITTER CONT. CALL TIM WITHN REACH.
[2016-09-20 16:00] VITALS: BP 148/82
--- NOTE | 2016-09-20 16:26 | INTERVENTIONAL RADIOLOGY RPT ---
CLINICAL HISTORY: The patient is a 60-year-old woman with iatrogenic pneumothorax during thoracentesis who no longer needs her chest tube. PROCEDURES: Bedside removal of the left anterior pigtail pleural catheter. PHYSICIANS: Dr. Flowers (attending). MEDICATIONS: None. COMPLICATIONS: None. ESTIMATED BLOOD LOSS: <5 mL SPECIMENS: None. CONTRAST: None. FLUOROSCOPY TIME: None. PROCEDURE NOTE: The left anterior chest tube dressing was taken down and the site was sterilely prepped and draped in usual fashion. The nonlocking pleural catheter was removed while the patient gently exhaled and a Vaseline gauze dressing was applied. The catheter came out easily and in entirety. The Vaseline dressing was covered with a 4 x 4 gauze and Tegaderm. FINDINGS: The catheter came out in entirety. IMPRESSION: Successful and uncomplicated bedside removal of the left chest tube.
[2016-09-21] VITALS: BP 98/60
--- NOTE | 2016-09-21 00:19 | NUR ---
PATIENT RECEIVED ASLEEP AFTER EARLIER PAIN MED, EASILY AROUSABLE AND QUICKLY RETURNS TO SLEEP, SKIN PINK, WARM AND DRY, DATA ANALYTICS ANALYST SINUS WITHOUT ECTOPY, HEART RATE 60'S/MIN, TOLERATING BIPAP WELL- FIO2 AT 60%- CONTINUOUS O2 SAT 94 TO 96%, BREATHE SOUNDS COARSE BUT CLEAR, DIMINISHED AT BOTH BASES, ABDOMEN SOFT, +BS, BONGORT TO COLOSTOMY INTACT, OCCLUSIVE DRESSING TO LEFT ANTERIOR CHEST CLEAN, DRY AND INTACT, 1:1 SITTER AT BEDSIDE FOR SAFETY, TOBAR TO GRAVITY DRAINAGE, RUQ TO GRAVITY
[2016-09-21 06:33] LABS: ABSOLUTE BASOPHIL COUNT 0 /CUMM (0.0-0.2); ABSOLUTE EOSINOPHIL COUNT 0.3 /CUMM (0.0-0.7); ABSOLUTE GRANULOCYTE CT 11.3 /CUMM (1.4-6.5); ABSOLUTE LYMPH COUNT 1.9 /CUMM (1.2-3.4); ABSOLUTE MONOCYTE COUNT 0.9 /CUMM (0.10-0.60); BASOPHIL % 0.1 % (0.0-2.0); EOSINOPHIL % 2.1 % (0-5); GRANULOCYTE % 78.2 % (42.2-75.2); HEMATOCRIT 25.4 % (37-47); MEAN CORPUSCULAR HGB 29.3 PG (27.0-31.0); MEAN CORPUSCULAR HGB CONC 32.2 G/DL (33.0-37.0); MEAN CORPUSCULAR VOLUME 91.1 FL (81.0-99.0); MEAN PLATELET VOLUME 7.4 FL (7.4-10.4); PLATELET COUNT 674 /CUMM (130-400); RBC DISTRIBUTION WIDTH 16.7 % (11.5-14.5); RED BLOOD CELL CT 2.79 /CUMM (4.20-5.40); WHITE BLOOD CELL COUNT 14.5 /CUMM (4.8-10.8)
[2016-09-21 08:00] VITALS: BP 126/80
--- NOTE | 2016-09-21 08:02 | PN- Resident CRCU ---
[facility] 0802: Subjective HPI/CRCU Issues: Afebrile overnight and Hemodynamically stable. Patient is on high flow NC 60% this am, she is saturating lower 90s. Patient denies any current active complaints. Patient passed a swallow eval yesterday I was started on thin liquid however she gets intermittent mild cough with thin liquid. Chest tube was removed yesterday. 24 Hour Events: * Tmax: 99.1 * HR: 60s-80s * BP: Stable * Oxygen saturation is on the low 90s on 60% high flow NC * No sign of infection or infiltration around PICC line * Chest tube was removed yesterday * Right upper quadrant drains 15 since yesterday Objective Vital Signs & I&O Last 8 Hrs of Vitals and I&O: Intake & Output 09/21 1600 Intake Total Output Total Balance Patient 63.616 kg Weight Weight Bed scale Measurement Method Exam General Appearance: no apparent distress, alert, awake, comfortable, on high flow NC 60 % Head: atraumatic, normal appearance Respiratory: normal breath sounds, chest non-tender, no respiratory distress, decrease air entry over lung base B/L Cardiovascular: regular rate/rhythm Gastrointestinal: normal bowel sounds, soft, non-tender Extremities: normal inspection, no edema Weaning Parameters NIF: 32 Minute Volume: 11.3 Resp rate: 20 Vt: 558 Heart Rate: 80 Weaning Schedule Minute Volume: 8.4 Resp Rate: 23 Vt: 350 Heart Rate: 80 End Time: 1035 Minute Volume: 17.5 Resp Rate: 40 Vt: 435 Heart Rate: 95 Start Time: 1100 Minute Volume: 7.9 Resp Rate: 25 Vt: 388 Heart Rate: 86 End Time: 1235 Minute Volume: 8.8 Resp Rate: 37 Vt: 280 Heart Rate: 89 Current Medications: Current Medications Sig/Ry Start time Last Medication Dose Route Stop Time Status Admin Albuterol Sulfate 3 ML EVERY 4 HRS/AWAKE 09/02 1999 AC 09/21 INH 1141 Albuterol Sulfate 3 ML Q4H PRN 08/27 999 AC 08/28 INH 1309 Enoxaparin Sodium 40 MG DAILY 09/03 1000 AC 09/21 SC 0931 Fluconazole 400 MG Q24 09/18 1000 AC 09/21 Sodium Chloride 200 ML IV 0931 Lorazepam 2 MG Q3P PRN 09/21 0945 AC IV Lorazepam 2 MG Q3P PRN 09/07 0800 DC 09/20 IV 1631 Magnesium Oxide 400 MG DAILY 09/12 1000 AC 09/21 PO 1107 Magnesium Sulfate 1 GM ONCE ONE 09/21 0930 AC Dextrose/Water 100 ML IV 09/21 1329 Meropenem 1 GM Q8H 09/15 0000 AC 09/21 IV 0755 Morphine Sulfate 2 MG Q3P PRN 09/15 0930 AC 09/21 IV 1107 Pantoprazole Sodium 40 MG DAILY 08/27 1000 AC 09/21 IV 0931 Potassium Chloride 20 MEQ Q1H 09/21 0930 DC 09/21 IV 09/21 1031 0931 Potassium Chloride 40 MEQ Q13H 09/19 0900 AC 09/20 Dextrose/Sodium 1,000 ML IV 2357 Chloride Potassium Chloride 20 MEQ DAILY 09/12 1000 AC 09/21 PO 1107 Propranolol HCl 10 MG 1800 09/21 1800 AC PO Propranolol HCl 10 MG AT BEDTIME 09/07 2200 DC 09/20 PO 2222 Sertraline HCl 50 MG DAILY 09/07 1301 AC 09/21 PO 1107 Trazodone HCl 200 MG AT BEDTIME 09/07 2200 AC 09/20 PO 2221 Impression/Plan Impression/Problem List Impression: Ms. Camacho is a 60 year old female with PMH anxiety, depression, COPD , prior episode of severe clostridium difficile infection in 2016, tobacco abuse and gastritis who presented to the [place] [facility] after one week of altered mental status, decreased oral intake and possible withdrawl symptoms as her clonazepam was being titrated off per doctor instructions. She was found to be hypotensive, febrile and altered while in the [place] [facility]. Neurological Metabolic encephalopathy on admission, likely secondary to severe sepsis from sigmoid perforation/peritonitis. * Alert and follow commands * Strength 5/5 X4 * Psych meds including trazodone, propranolol, sertraline daily, and Ativan 2mg PRN * On admission CT head negative for acute intracranial pathology Plan 1.NTD Cardiovascular Sinus tachycardia with T wave changes on admission(resolved).ACS was excluded. Echo showed normal global LV function without wall motion abnormalities and normal pulm artery systolic pressure Over last 24 hour * HR: 60s-80s * BP: Hemodynamically stable Medications * Propranolol 10 mg at bedtime Plan 1.continue monitor vitals Respiratory Patient initially placed on non-rebreather but was transitioned to high flow nasal cannula/ BiPAP due to tachypnea/apparent respiratory distress. Patient tolerated BiPAP well but was intubated for Ho's procedure, POD# 25, patient remained intubated until 09/15/16. Noted bilateral pleural effusions on CT chest, patient s/p thoracentesis on 09/02 and again on 09/13. the thoracentesis done on 09/13 was complicated by pneumothorax for which chest tube was placed in the left lung. Recent CTA days ago ruled out PE as a cause of increased O2 requirements. * Clear breath sounds bilaterally. no additional sounds. * Now saturating lower 90s on high flow 60% NC * Left side chest tube was DC'd yesterday Pulmonary medications * Albuterol * Nebs Plan 1.TRC/Nebs 2.Aspiration precautions Renal Had SIERRA on presentation Likely prerenal in the setting of severe sepsis. Kidney function is back to normal after IV hydration. * Patient overall have a positive balance * Patient yesterday has a brown 600 ml negative balance Plan 1.Continue monitoring renal function 2. Continue strict I/Os Fluids, Electrolytes, and Nutrition (FEN) * Na 141, K 3.8 , and Mg is 1.7 * Patient is now on ground and thin diet Plan 1.Repeat chemistry daily 2.Replete potassium 20 mEq IV X2 3.DC IV fluid. 4.Magnesium 1 mg IV X1 5.Switch diet to thick to avoid aspiration Infectious Diseases Patient presented with fever, leukocytosis, hypotension and tachycardia secondary to peritonitis from perforated sigmoid colon with abscess formation, S /P Harmann's procedure with Dr. Armendariz. Blood cultures showed no growth, lower respiratory culture grew pseudomonas (resistent to zosyn) and culture from OR grew E.Coli, alpha/beta strep and brandon. She was placed on IV fluconazole and IV meropenem. IR placed one RUQ drain and one LLQ drain to drain this fluid. LLQ was subsequently taken out but the RUQ drain remains in place. Patient grew Pseudomonas in sputum culture (09/14/16), this was found to be sensitive meropenem. Patient possibly has hospital-acquired pneumonia. Overnight the * Tmax: 99.1 * Current Temp is 98.4 * WBCs: 14.5 * On Meropenem and Fluconazole * Right lower quadrant draining catheter drain 15 mL overnight * CT abdomen yesterday showed: The rim-enhancing fluid pockets in the abdomen and pelvis have decreased in size Plan 1.we will discuss with surgery the management plan of abdominal drainage tube 2. We will DC Fulton catheter 3.As per ID, we will discontinue Meropenem and Fluconazole and watch off antibiotic Hematology Patient given total of 4 U PRBC since admission. Initial had thrombocytopenia likely 2/2 coagulopathly from sepsis, 4Ts score placed patient at low risk for HIT (<5%) so SC lovenox was Resumed on 09/02. * H&H 8.2 & 25.4 * Platelet count 674 * INR 1.26 (on 09/15) Plan 1.Follow up CBC daily, monitor for bleeding FULL CODE DVT prophylaxis: ALPS + SC lovenox Ulcer prophylaxis: Pantoprazole Problem List: 1. Status post Ho's procedure Pain Ratin Tomorrow's Labs & Rationales: ICU bundle and CBC Plan DVT/Prophylaxis: mechanical, pharmacological Code Status: Full Code ABELARDO CARIAS MD 09/21/16 1039: Attending MD Review Statement Attending Sign Off Attending Cosign Statement: I have: examined this patient, reviewed avalbl EMR data, personally reviewd images, discussd w/resident/PA/PAYROLL ACCOUNTING MANAGER, discussed mgmt plan w/kavya, discussed mgmt plan w/CM, discussed mgmt plan w/pt, agreed w/resident/PA/PAYROLL ACCOUNTING MANAGER, amended to note. Other Findings: IAbelardo M.D. have examined this patient, reviewed available EMR data, personally reviewed images, discussed with resident/PA/PAYROLL ACCOUNTING MANAGER, discussed management plan with housestaff and nursing staff, discussed managment plan all of healthcare providers, discussed management plan with patient and/or family, agreed with resident/PA/PAYROLL ACCOUNTING MANAGER. The past history and parts of the chart have been autopopulated. Follow-up surgical and ID recommendations Chest tube removed please get chest x-ray today Thicken feeds reduce fio2 Continue antibiotics TTS 35 min
--- NOTE | 2016-09-21 08:03 | NUR ---
0330 DR PEREZ MADE AWARE OF LOWERED BP, BRADYCARDIA 54 YO 60/MIN AND POOR UO OVERNIGHT- NO CHANGES IN ORDERS GIVEN AT THIS TIME- TO ADDRESS WITH AM TEAM 0600 PATIENT HAS SLEPT WELL OVERNIGHT, RESTRAINTS RELEASED DURING CARE BUT REPLACED SHE CONTINUALLY REACHES FOR IV'S, TOBAR, DRAIN EVEN WITH ATTEMPTS TO RE-DIRECT HER, CONTINUES TO TOLERATE BIPAP WELL, SLEEPING IN NAPS, AWAITING AM MD ROUNDS
--- NOTE | 2016-09-21 09:55 | PN- General Surgery ---
Surgical Brief Attending Note Brief Attending Note: CT reviewed with IR. may benefit from another drain in subhepatic collection. will d/w team.
--- NOTE | 2016-09-21 11:01 | PN- Infect Dx ---
Subjective Subjective: Afebrile without complaints. Objective Last 24 Hrs of Vital Signs/I&O Vital Signs Date Time Temp Pulse Resp B/P B/P Pulse O2 O2 Flow FiO2 Mean Ox Delivery Rate 09/21 0824 91 Nasal 50% Cannula 09/21 0800 97.7 67 23 126/80 95 BIPAP 60% 09/21 0800 95 Nasal 60% Cannula 09/21 0750 65 94 09/21 0557 56 92 09/21 0400 94 BIPAP 60% 09/21 0330 61 94 09/21 0046 65 96 09/21 0000 96 BIPAP 60% 09/21 0000 98.4 64 24 98/60 96 BIPAP 60% 09/20 2300 80 92 09/20 2222 83 148/76 09/20 2000 91 Nasal 60% Cannula 09/20 1800 85 Nasal 50% Cannula 09/20 1600 98.3 86 22 148/82 99 Nasal 50% Cannula 09/20 1600 93 Nasal 50% Cannula 09/20 1200 93 Nasal 50% Cannula Intake & Output 09/21 1600 09/21 0800 09/21 0000 Intake Total 422 676 Output Total 255 790 Balance 167 -114 Intake, IV 422 376 Intake, Oral 300 Output, 0 Drainage Output, Other 8 Output, Stool 65 200 Output, Urine 182 590 Patient 140 lb Weight Weight Bed scale Measurement Method Physical Exam Other Physical Findings: She appears comfortable on high flow oxygen in no acute distress Lungs are clear Heart regular rhythm with no murmur Abdomen soft, nontender with positive bowel sounds; right upper quadrant catheter remains in place, with 15 mL output yesterday; colostomy with liquid stool Extremities no cyanosis, clubbing or edema; PICC in the right upper extremity with no inflammation at the site Fulton catheter remains in place Results Last 24 Hours of Lab Results: Laboratory Tests 09/21 0608 Chemistry Sodium (137 - 145 mmol/L) 141 Potassium (3.5 - 5.1 mmol/L) 3.8 Chloride (98 - 107 mmol/L) 107 Carbon Dioxide (22 - 30 mmol/L) 28 Anion Gap (5 - 16) 6 BUN (7 - 17 mg/dL) 5 L Creatinine (0.5 - 1.0 mg/dL) 0.5 Estimated GFR (>60 ml/min) > 60 Glucose (65 - 99 mg/dL) 82 Calcium (8.4 - 10.2 mg/dL) 8.1 L Phosphorus (2.5 - 4.5 mg/dL) 3.5 Magnesium (1.6 - 2.3 mg/dL) 1.7 Total Bilirubin (0.2 - 1.3 mg/dL) 0.4 AST (14 - 36 U/L) 15 ALT (9 - 52 U/L) 30 Albumin (3.5 - 5.0 g/dL) 1.9 L Hematology CBC w Diff NO MAN DIFF REQ WBC (4.8 - 10.8 /CUMM) 14.5 H RBC (4.20 - 5.40 /CUMM) 2.79 L Hgb (12.0 - 16.0 G/DL) 8.2 L Hct (37 - 47 %) 25.4 L MCV (81.0 - 99.0 FL) 91.1 MCH (27.0 - 31.0 PG) 29.3 RDW (11.5 - 14.5 %) 16.7 H Plt Count (130 - 400 /CUMM) 674 H MPV (7.4 - 10.4 FL) 7.4 Gran % (42.2 - 75.2 %) 78.2 H Lymphocytes % (20.5 - 51.1 %) 13.4 L Monocytes % (1.7 - 9.3 %) 6.2 Eosinophils % (0 - 5 %) 2.1 Basophils % (0.0 - 2.0 %) 0.1 Absolute Granulocytes (1.4 - 6.5 /CUMM) 11.3 H Absolute Lymphocytes (1.2 - 3.4 /CUMM) 1.9 Absolute Monocytes (0.10 - 0.60 /CUMM) 0.9 H Absolute Eosinophils (0.0 - 0.7 /CUMM) 0.3 Absolute Basophils (0.0 - 0.2 /CUMM) 0 PUBS MCHC (33.0 - 37.0 G/DL) 32.2 L Last 24 Hours of [place] Results: No recent cultures Recent Imaging Studies: CT of the chest, abdomen and pelvis September 20 reveals moderate pleural effusions, with the left slightly larger than on the previous study; lower lobes remain completely collapsed with mild compressive atelectasis in the posterior aspect of each upper lobe, persistent mild atelectasis within the lingula and new areas of atelectasis in the anterior left upper lobe; percutaneous drainage catheter within the right perihepatic fluid collection, which is slightly smaller compared to the previous study; a peripherally enhancing fluid component at the inferior aspect of the right hepatic lobe extending into Pfeiffer's pouch is slightly smaller; a significant decrease in volume of fluid in the left lower paracolic gutter, with no new fluid collections Assessment/Plan Impression: Remains stable, though still on high flow oxygen, status post removal of the left chest tube, placed for a post thoracentesis pneumothorax, yesterday with temperatures remaining normal and white blood cell count slightly decreased, though still elevated, on Meropenem and Fluconazole now 26 days status post Granger's procedure for polymicrobial peritonitis secondary to a perforated sigmoid colon now 20 days status post drainage of a purulent fluid collection from the right upper quadrant, with overall decreased drainage from the right upper quadrant catheter over the last several days. The recent CT scan does not reveal any new collections; therefore feel that the catheter can be removed and that she can be followed off antibiotics. Suggestion: 1. Would remove the right upper quadrant catheter 2. Would remove Fulton catheter 3. Discontinue Meropenem and Fluconazole and follow off antibiotics
--- NOTE | 2016-09-21 11:18 | NUR ---
@0800-PT ALERT AND ORIENTED TO PERSON AND PLACE. RESLTESS AND AGITATED AT TIMES. SITTER REMAINS AT BEDSIDE. BILAT SOFT RESTRAINTS IN PLACE AT THIS TIME FOR SAFETY OF LINES AND DRAINS. PT CONT ON BIPAP THIS AM WITH NEB TREATMENT IN PLACE AND CPT. PT TO BE PLACED ON HIFLO NC AFTER TREATMENT COMPLETE. PROD COUGH OF YELLOW SPUTUM. DIM BS TO BASES. O2SAT 94%. CXR ORD FOR THIS AM. NSR SB HR 50S-70S. BP STABLE. BREAKFAST OF GROUND/THIN LIQS PROVIDED AND FED BY SITTER. PT VAUGHN THICKENED LIQS IN LARGER QUANITIES COMPARED TO THIN LIQS. COLOSTOMY SITE INTACT-STOMA PINK. LIQ BROWN STOOL NOTED. TOBAR IN PLACE WITH CLEAR YELLOW URINE-OUTPUT DECREASED COMPARED TO YEST. R PERC DRAIN CONT TO R LOWER ABD-FLUSHED WITH 10ML NS AT THIS TIME. DSG TO PREV PIGTAIL CT TO L CW CDI. IVF CONT TO INFUSE D5NS WITH 40MEQKCL INFUSING AT 50ML/HR. IV MEROPENUM INFUSED ORD. K+3.8, MAG 1.7-REPORTED TO HOUSESTAFF-AWAIT ORDERS FOR REPLACEMENT. CONT TO MONITOR CLOSELY. CALL TIM WITHIN REACH.
--- NOTE | 2016-09-21 11:24 | RADIOLOGY REPORT ---
EXAMINATION: XR PORTABLE CHEST CLINICAL INFORMATION: Status post chest tube removal COMPARISON: Radiograph and CT from 09/20/2016. TECHNIQUE: Portable frontal view of the chest was obtained. FINDINGS: Right-sided PICC line remains in place. The left sided chest tube has been removed. Radiopaque wires overlie the left hemithorax, new from prior and likely external to the patient. Lung volumes are low. There are persistent small bilateral pleural effusions with associated airspace opacity. No pneumothorax. The cardiomediastinal silhouette is unchanged, with a calcified aorta. IMPRESSION: Follow-up the left-sided chest tube. No pneumothorax seen. Persistent small bilateral pleural effusions with airspace opacity.
--- NOTE | 2016-09-21 11:27 | NUR ---
@1030-BILAT WRIST RESTRAINTS REMOVED. PT MORE COOP AND NOT ATTEMPTING AT PULLING AT TUBES/DRAINS AT THIS TIME. SITTER REMAINS AT BEDSIDE AND RENEWED. FIO2 REQUIREMENTS INCREASED TO 60% FROM 50% DUE TO DESATS TO 84%. REPEAT CXR AT THIS TIME. PT OOB TO GERICHAIR DURING PHYSICAL THERAPY TREATMENT. KCL 20MEQ IV BOLUS INFUSING AT THIS TIME. PER HOUSESTAFF,IF PT CAN TAKE ORAL POTASSIUM SUPPLEMENT THEN PT WILL NOT RECIEVE 2ND IV BOLUS. 1GM MAG BOLUS ORD, WILL RECIEVE WHEN IV DIFLUCAN FINSIHES INFUSION. PT SITTING COMF IN CHAIR. CONT TO MONITOR CLOSELY.
[2016-09-21 12:07] VITALS: BP 121/69
--- NOTE | 2016-09-21 14:01 | NUR ---
Referral received via electronic production recorder on 09/14/16. Reason for consult was "plan for tracheostomy". Case discussed with casework supervisor Taurus Purcell, who reports that patient may need to explore LTC coverage. Patient has been evaluated by Lindsey: call placed to patients sister, (with whom patient lives). Message left and await return call.
[2016-09-21 16:00] VITALS: BP 118/70
--- NOTE | 2016-09-21 16:51 | NUR ---
@1600-PT RESTING COMF IN BED. SITTER REMAINS AT BEDSIDE. @1500 PT HOYERED BACK TO BED, NEW DSG PLACED TO PROXIMAL END TO MIDLINE SURG INCISION. NEW APPLIANCE PLACED TO COLOSTOMY, STOMA PINK, STOOL YELLOW/LIGHT BROWN IN COLOR. R PERC DRAIN REMOVED AT BEDSIDE BY INTERVENTIONAL RADIOLOGIST. IVF CONT. BLE EDEMA, +1-+2 EDEMA NOTED, REPORTED TO HOUSESTAFF. CONT TO MONITOR CLOSELY, CALL TIM WITHIN REACH.
--- NOTE | 2016-09-21 17:09 | INTERVENTIONAL RADIOLOGY RPT ---
PROCEDURE: IR PERIHEPATIC DRAINAGE CATHETER REMOVAL INTERVENTIONAL RADIOLOGIST: Chepe Trevizo MD ACCESS: Right flank. MEDICATIONS: None COMPLICATIONS: None CONTRAST: None INFORMED CONSENT: Informed consent was obtained from the patient just prior to the examination. Risks and benefits were explained. DESCRIPTION: The CT of the abdomen and pelvis from 09/20/[address] Armendariz and Dr. Tong. Imaging demonstrates minimal residual fluid in the perihepatic space. Minimal residual fluid was noted along the right perihepatic space at the level of the catheter. A small amount of more loculated fluid was noted at the inferior aspect of the right lobe of the liver. Clinically the right perihepatic drainage catheter has had minimal output for several days and the patient has improved clinically. Request for removal of the catheter was made. The catheter in the right flank was prepped and draped at the patient's bedside. The retention sutures on the catheter were cut and removed. Subsequently, the catheter was cut and removed in its entirety. A sterile dressing was applied to the catheter entry site. The patient tolerated the procedure well. IMPRESSION: Successful bedside removal of the perihepatic drainage catheter.
[2016-09-22] VITALS: BP 100/60
[2016-09-22 05:38] LABS: ABSOLUTE BASOPHIL COUNT 0 /CUMM (0.0-0.2); ABSOLUTE EOSINOPHIL COUNT 0.3 /CUMM (0.0-0.7); ABSOLUTE GRANULOCYTE CT 11.3 /CUMM (1.4-6.5); ABSOLUTE LYMPH COUNT 1.5 /CUMM (1.2-3.4); ABSOLUTE MONOCYTE COUNT 0.9 /CUMM (0.10-0.60); BASOPHIL % 0 % (0.0-2.0); GRANULOCYTE % 81.1 % (42.2-75.2); HEMATOCRIT 26.1 % (37-47); MEAN CORPUSCULAR HGB 29.7 PG (27.0-31.0); MEAN CORPUSCULAR HGB CONC 32.7 G/DL (33.0-37.0); MEAN CORPUSCULAR VOLUME 90.9 FL (81.0-99.0); MEAN PLATELET VOLUME 7.5 FL (7.4-10.4); PLATELET COUNT 717 /CUMM (130-400); RBC DISTRIBUTION WIDTH 17.1 % (11.5-14.5); RED BLOOD CELL CT 2.87 /CUMM (4.20-5.40)
[2016-09-22 08:00] VITALS: BP 160/72
--- NOTE | 2016-09-22 08:11 | PN- Resident CRCU ---
JOSE BAILEY,[facility] 09/22/16 0811: Subjective HPI/CRCU Issues: Afebrile, Hemodynamically stable. Patient is saturating well on 60% BiPAP this am. No overnight event was reported. Patient denies any current active complaints. Chest tube was removed 2 days ago and RUQ drainage to was removed yesterday. 24 Hour Events: * Tmax: 99.7 * HR: 62-74 * BP: 93/66-135/74 * Oxygen saturation is on the low 90s on 60% BiPAP * No sign of infection or infiltration around PICC line * Chest tube was removed 2 days ago * Right upper quadrant drains was removed yesterday Objective Vital Signs & I&O Last 8 Hrs of Vitals and I&O: Vital Signs Date Time Temp Pulse Resp B/P B/P Pulse O2 O2 Flow FiO2 Mean Ox Delivery Rate 09/22 0830 95 Nasal 55% Cannula 09/22 0808 66 96 09/22 0537 67 96 09/22 0400 94 BIPAP 60% 09/22 0349 60 95 09/22 0011 60 94 09/22 0000 97.9 62 23 100/60 94 BIPAP 60% 09/22 0000 94 BIPAP 60% 09/21 2222 64 92 09/21 2000 93 Nasal 55% Cannula 09/21 1924 91 Nasal 55% Cannula 09/21 1740 66 134/60 09/21 1605 94 Nasal 60% Cannula 09/21 1600 95 Nasal 55% Cannula / 1600 99.4 61 26 118/70 94 Nasal 55% Cannula 09/21 1553 Ventilator 60% Intake & Output 09/22 1600 09/22 0800 09/22 0000 Intake Total 542 561 Output Total 11 Balance 531 561 Intake, IV 442 381 Intake, Oral 100 180 Output, Stool 1 Output, Urine 10 Exam General Appearance: no apparent distress, alert, awake, comfortable Head: atraumatic, normal appearance Respiratory: normal breath sounds, chest non-tender, no respiratory distress, lungs clear Cardiovascular: regular rate/rhythm Gastrointestinal: soft, non-tender Extremities: normal inspection, no edema Cranial Nerves: normal hearing, PERRL, low voice Weaning Parameters NIF: 32 Minute Volume: 11.3 Resp rate: 20 Vt: 558 Heart Rate: 80 Weaning Schedule Minute Volume: 8.4 Resp Rate: 23 Vt: 350 Heart Rate: 80 End Time: 1035 Minute Volume: 17.5 Resp Rate: 40 Vt: 435 Heart Rate: 95 Start Time: 1100 Minute Volume: 7.9 Resp Rate: 25 Vt: 388 Heart Rate: 86 End Time: 1235 Minute Volume: 8.8 Resp Rate: 37 Vt: 280 Heart Rate: 89 Current Medications: Current Medications Sig/Ry Start time Last Medication Dose Route Stop Time Status Admin Albuterol Sulfate 3 ML EVERY 4 HRS/AWAKE 09/01 2000 AC 09/22 INH 1214 Albuterol Sulfate 3 ML Q4H PRN 08/27 1000 AC 08/28 INH 1309 Enoxaparin Sodium 40 MG DAILY 09/03 1000 AC 09/22 SC 0913 Lorazepam 2 MG Q3P PRN 09/21 0945 AC 09/22 IV 1230 Magnesium Oxide 400 MG ONE ONE 09/22 0545 CAN PO 09/22 0546 Magnesium Oxide 400 MG DAILY 09/12 1000 AC 09/22 PO 0913 Magnesium Sulfate 1 GM ONCE ONE 09/21 0930 DC 09/21 Dextrose/Water 100 ML IV 09/21 1329 1244 Morphine Sulfate 2 MG Q3P PRN 09/15 0930 AC 09/22 IV 0519 Pantoprazole Sodium 40 MG DAILY 08/27 1000 AC 09/22 IV 0913 Potassium Chloride 40 MEQ ONCE ONE 09/22 0545 CAN PO 09/22 0546 Potassium Chloride 40 MEQ Q13H 09/19 0900 AC 09/22 Dextrose/Sodium 1,000 ML IV 0200 Chloride Potassium Chloride 20 MEQ DAILY 09/12 1000 AC 09/22 PO 0913 Propranolol HCl 10 MG 1800 09/21 1800 AC 09/21 PO 1740 Sertraline HCl 50 MG DAILY 09/07 1301 AC 09/22 PO 0913 Trazodone HCl 200 MG AT BEDTIME 09/07 2200 AC 09/21 PO 2151 Impression/Plan Impression/Problem List Impression: Ms. Camacho is a 60 year old female with PMH anxiety, depression, COPD , prior episode of severe clostridium difficile infection in 2016, tobacco abuse and gastritis who presented to the [place] ED after one week of altered mental status, decreased oral intake and possible withdrawl symptoms as her clonazepam was being titrated off per doctor instructions. She was found to be hypotensive, febrile and altered while in the [place] ED. Neurological Metabolic encephalopathy on admission, likely secondary to severe sepsis from sigmoid perforation/peritonitis. * Alert and follow commands * Strength 5/5 X4 * Psych meds including trazodone, propranolol, sertraline daily, and Ativan 2mg PRN * On admission CT head negative for acute intracranial pathology Plan 1.NTD Cardiovascular Sinus tachycardia with T wave changes on admission(resolved).ACS was excluded. Echo showed normal global LV function without wall motion abnormalities and normal pulm artery systolic pressure Over last 24 hour * HR: 62-74 * BP: 93/66-135/74 Medications * Propranolol 10 mg at bedtime Plan 1.continue monitor vitals Respiratory Patient initially placed on non-rebreather but was transitioned to high flow nasal cannula/ BiPAP due to tachypnea/apparent respiratory distress. Patient tolerated BiPAP well but was intubated for Ho's procedure, POD# 25, patient remained intubated until 09/15/16. Noted bilateral pleural effusions on CT chest, patient s/p thoracentesis on 09/02 and again on 09/13. the thoracentesis done on 09/13 was complicated by pneumothorax for which chest tube was placed in the left lung. Recent CTA days ago ruled out PE as a cause of increased O2 requirements. * Clear breath sounds bilaterally. no additional sounds. * Now saturating lower 90s on high flow 60% BiPAP * Left side chest tube was DC'd yesterday Pulmonary medications * Albuterol * Nebs Plan 1.TRC/Nebs 2.Aspiration precautions Renal Had SIERRA on presentation Likely prerenal in the setting of severe sepsis. Kidney function is back to normal after IV hydration. * Patient overall have a positive balance * Yesterday intake was 2002 and output was 240 * Renal function is within normal limits however urine output markedly decreased yesterday down to 350 within 24-hour Plan 1.Continue monitoring renal function 2.Continue strict I/Os 3.Urine electrolytes and fractionated sodium 4.250 mL of normal saline Fluids, Electrolytes, and Nutrition (FEN) * Na 142, K 4.6 , and Mg is 2 * Patient is now on ground and thin diet Plan 1.Repeat chemistry daily 5.continue ground and nectar diet. Infectious Diseases Patient presented with fever, leukocytosis, hypotension and tachycardia secondary to peritonitis from perforated sigmoid colon with abscess formation, S /P Harmann's procedure with Dr. Armendariz. Blood cultures showed no growth, lower respiratory culture grew pseudomonas (resistent to zosyn) and culture from OR grew E.Coli, alpha/beta strep and brandon. She was placed on IV fluconazole and IV meropenem. IR placed one RUQ drain and one LLQ drain to drain this fluid. LLQ was subsequently taken out but the RUQ drain remains in place. Patient grew Pseudomonas in sputum culture (09/14/16), this was found to be sensitive meropenem. Patient possibly has hospital-acquired pneumonia. Overnight the * Tmax: 99.1 * WBCs: 14 * Meropenem and Fluconazole was DC'd yesterday * Fulton catheter was DC'd yesterday * Right lower quadrant draining catheter drain was removed yesterday Plan 1.watch of antibiotic Hematology Patient given total of 4 U PRBC since admission. Initial had thrombocytopenia likely 2/2 coagulopathly from sepsis, 4Ts score placed patient at low risk for HIT (<5%) so SC lovenox was Resumed on 09/02. * H&H this morning is 8.5 & 26.1 * Platelet count 717 Plan 1.Follow up CBC daily, monitor for bleeding FULL CODE DVT prophylaxis: ALPS + SC lovenox Ulcer prophylaxis: Pantoprazole Problem List: 1. Status post Oh's procedure Pain Ratin Tomorrow's Labs & Rationales: CBC and ICU bundle Plan DVT/Prophylaxis: mechanical, pharmacological Code Status: Full Code ABELARDO CARIAS MD 09/22/16 0900: Attending MD Review Statement Attending Sign Off Attending Cosign Statement: I have: examined this patient, reviewed avalbl EMR data, personally reviewd images, discussd w/resident/PA/VOCATIONAL REHABILITATION TEACHER, discussed mgmt plan w/kavya, discussed mgmt plan w/CM, discussed mgmt plan w/pt, agreed w/resident/PA/VOCATIONAL REHABILITATION TEACHER, amended to note. Other Findings: Abelardo Diamond M.D. have examined this patient, reviewed available EMR data, personally reviewed images, discussed with resident/PA/VOCATIONAL REHABILITATION TEACHER, discussed management plan with housestaff and nursing staff, discussed managment plan all of healthcare providers, discussed management plan with patient and/or family, agreed with resident/PA/VOCATIONAL REHABILITATION TEACHER. The past history and parts of the chart have been autopopulated. Follow-up surgical and ID recommendations PT/OT reduce fio2 TTS 35 min Continue antibiotics TTS 35 min
--- NOTE | 2016-09-22 09:51 | PN- Infect Dx ---
Subjective Subjective: Afebrile. She complains of lower back pain. Objective Last 24 Hrs of Vital Signs/I&O Vital Signs Date Time Temp Pulse Resp B/P B/P Pulse O2 O2 Flow FiO2 Mean Ox Delivery Rate 09/22 0808 66 96 09/22 0537 67 96 09/22 0400 94 BIPAP 60% 09/22 0349 60 95 09/22 0011 60 94 06 0000 97.9 62 23 100/60 94 BIPAP 60% 09/22 0000 94 BIPAP 60% 09/21 2222 64 92 09/21 2000 93 Nasal 55% Cannula 09/21 1924 91 Nasal 55% Cannula 09/21 1740 66 134/60 09/21 1605 94 Nasal 60% Cannula 09/21 1600 95 Nasal 55% Cannula /14 1600 99.4 61 26 118/70 94 Nasal 55% Cannula 09/21 1553 Ventilator 60% 09/21 1207 97.5 64 18 121/69 95 09/21 1200 96 Nasal 60% Cannula 09/21 1146 92 Nasal 60% Cannula Intake & Output 09/22 1600 09/22 0800 09/22 0000 Intake Total 542 561 Output Total 11 Balance 531 561 Intake, IV 442 381 Intake, Oral 100 180 Output, Stool 1 Output, Urine 10 Physical Exam Other Physical Findings: She appears comfortable on high flow oxygen in no acute distress Lungs decreased breath sounds at both bases Heart regular rhythm with no murmur Abdomen is mildly distended, nontender with positive bowel sounds; liquid stool in the colostomy Extremities no cyanosis, clubbing or edema; PICC in the right upper extremity with no inflammation at the site Results Last 24 Hours of Lab Results: Laboratory Tests 09/22 0454 Chemistry Sodium (137 - 145 mmol/L) 142 Potassium (3.5 - 5.1 mmol/L) 4.6 Chloride (98 - 107 mmol/L) 107 Carbon Dioxide (22 - 30 mmol/L) 28 Anion Gap (5 - 16) 7 BUN (7 - 17 mg/dL) 5 L Creatinine (0.5 - 1.0 mg/dL) 0.5 Estimated GFR (>60 ml/min) > 60 Glucose (65 - 99 mg/dL) 85 Calcium (8.4 - 10.2 mg/dL) 8.6 Phosphorus (2.5 - 4.5 mg/dL) 3.7 Magnesium (1.6 - 2.3 mg/dL) 2.0 Total Bilirubin (0.2 - 1.3 mg/dL) 0.4 AST (14 - 36 U/L) 17 ALT (9 - 52 U/L) 29 Albumin (3.5 - 5.0 g/dL) 2.2 L Hematology CBC w Diff NO MAN DIFF REQ WBC (4.8 - 10.8 /CUMM) 14.0 H RBC (4.20 - 5.40 /CUMM) 2.87 L Hgb (12.0 - 16.0 G/DL) 8.5 L Hct (37 - 47 %) 26.1 L MCV (81.0 - 99.0 FL) 90.9 MCH (27.0 - 31.0 PG) 29.7 RDW (11.5 - 14.5 %) 17.1 H Plt Count (130 - 400 /CUMM) 717 H MPV (7.4 - 10.4 FL) 7.5 Gran % (42.2 - 75.2 %) 81.1 H Lymphocytes % (20.5 - 51.1 %) 10.7 L Monocytes % (1.7 - 9.3 %) 6.2 Eosinophils % (0 - 5 %) 2.0 Basophils % (0.0 - 2.0 %) 0 L Absolute Granulocytes (1.4 - 6.5 /CUMM) 11.3 H Absolute Lymphocytes (1.2 - 3.4 /CUMM) 1.5 Absolute Monocytes (0.10 - 0.60 /CUMM) 0.9 H Absolute Eosinophils (0.0 - 0.7 /CUMM) 0.3 Absolute Basophils (0.0 - 0.2 /CUMM) 0 PUBS MCHC (33.0 - 37.0 G/DL) 32.7 L Last 24 Hours of [place] Results: No recent cultures Assessment/Plan Impression: Stable status post post removal of the right upper quadrant catheter yesterday after nearly 3 weeks of drainage of a purulent fluid collection following surgery 1 week earlier for a perforated sigmoid colon now 27 days status post a Granger's procedure. She remains afebrile with white blood cell count mildly elevated, though continuing to decrease, now off antibiotics. Suggestion: 1. Continue to follow off antibiotics
--- NOTE | 2016-09-22 12:44 | NUR ---
COLOSTOMY BAG CHANGED, LEAKING, STOMA PINK, IN ABDOMINAL CREASE, SLIGHTLY INVERTED. NEW APPLIANCE PLACED, MUCOUS DRAINAGE NOTED IN PREVIOUS BAG. SKIN UNDER APPLIANCE INTACT. DRESSING TO LOWER ABDOMEN SURGICAL SITE CHANGED AT THIS TIME. WILL MONITOR.
--- NOTE | 2016-09-22 15:27 | NUR ---
Met with patients sister Maude thsi am, to discuss posible need for T-19 application for [facility]. Reviewed process and required documentation. is patients POA; has access to financial statements and will begin to gather necessary documentation. Plan to see patients again on Monday, 09/26. Follow
[2016-09-22 16:00] VITALS: BP 128/80
--- NOTE | 2016-09-22 17:55 | NUR ---
PATIENT SOB AFTER VOIDING ON BED CNOTI. RR 30'S. SAT 75% ON HIFLO AT 55%. RT DAHLIA CALLED AND AT BEDSIDE, DEEP SUCTIONED FOR ODELL THICK SECRETIONS, FAN TURNED ON, PLACED IN UPRIGHT POSITION, HIFLO TURNED UP TO 80% AT THIS TIME. WILL MONITOR.
--- NOTE | 2016-09-22 22:30 | NUR ---
PT HAS INCREASED RR 36-40. PULSE OX 92-93% ON 75% HI SEAN. PT USING ACCESSORY MUSCLE AND APPEARS IN DISTRESS. RESPIRATORY AT BEDSIDE. PT RECIEVING CHEST PT AND NEBS. PT ALSO SUCTIONED FOR THICK ODELL SPUTUM. PT LUNGS WITH CRACKLES. DR. ACKERMAN AWARE AND AT BEDISDE FOR EVALUATION. PT HAS BEEN INCONINTENT OF SCANT URINE AND HAS VOIDED 30 MLS ON BEDPAN. AWARE.
--- NOTE | 2016-09-22 23:30 | NUR ---
CHEST XRAY DONE, TOBAR PLACED. BP DOWN TO 106/64 MAUNUALLY AND 101/58 VIA AUTO CUFF. PER MD HOLD LASIX AT THIS TIME SECONDARY TO BP. AWAIT CXR RESULTS AND CONTINUE TO MONITOR.
[2016-09-23] VITALS: BP 92/48
--- NOTE | 2016-09-23 00:06 | RADIOLOGY REPORT ---
EXAMINATION: XR PORTABLE CHEST CLINICAL INFORMATION: RR increasing. Increasing need for O2 COMPARISON: Chest x-ray portable 09/21/2016, 10:44 AM TECHNIQUE: Portable frontal view of the chest was obtained. 11:20 PM FINDINGS: Bilateral pleural effusions. No change in volume pleural effusions since chest x-ray 09/21/2016. Probable underlying airspace disease at both lung bases. PICC line catheter tip in superior vena cava. IMPRESSION: Persistent bilateral pleural effusions.
[2016-09-23 05:38] LABS: ABSOLUTE BASOPHIL COUNT 0 /CUMM (0.0-0.2); ABSOLUTE EOSINOPHIL COUNT 0.1 /CUMM (0.0-0.7); ABSOLUTE GRANULOCYTE CT 10.2 /CUMM (1.4-6.5); ABSOLUTE LYMPH COUNT 1.4 /CUMM (1.2-3.4); ABSOLUTE MONOCYTE COUNT 0.8 /CUMM (0.10-0.60); BASOPHIL % 0.2 % (0.0-2.0); GRANULOCYTE % 81.3 % (42.2-75.2); HEMATOCRIT 25.5 % (37-47); MEAN CORPUSCULAR HGB 29.4 PG (27.0-31.0); MEAN CORPUSCULAR VOLUME 91.9 FL (81.0-99.0); MEAN PLATELET VOLUME 7.7 FL (7.4-10.4); PLATELET COUNT 671 /CUMM (130-400); RBC DISTRIBUTION WIDTH 16.9 % (11.5-14.5); RED BLOOD CELL CT 2.78 /CUMM (4.20-5.40); WHITE BLOOD CELL COUNT 12.5 /CUMM (4.8-10.8)
[2016-09-23 08:00] VITALS: BP 138/60
--- NOTE | 2016-09-23 09:02 | PN- Resident CRCU ---
JOSE BAILEY,[facility] 09/23/16 0902: Subjective HPI/CRCU Issues: Afebrile, Hemodynamically stable. Patient respiratory status mildly deteriorate compare to yesterday, this morning she required more oxygen and gets out of breath while talking. Patient reports a poor appetite. Overnight she had blood pressure instability, where she went high to 170s systolic and then down to 70s systolic. 24 Hour Events: * Tmax: 98 * HR: 50s-80s * BP: Showed significant instability overnight systolic going up and down [id number] to 170s * Oxygen saturation is on the low 90s on 70% BiPAP * No sign of infection or infiltration around PICC line Objective Vital Signs & I&O Last 8 Hrs of Vitals and I&O: Vital Signs Date Time Temp Pulse Resp B/P B/P Pulse O2 O2 Flow FiO2 Mean Ox Delivery Rate 09/23 0835 52 95 09/23 0800 97.7 54 32 138/60 95 BIPAP 65% 09/23 0800 95 BIPAP 65% 09/23 0530 55 96 09/23 0400 96 BIPAP 65% 09/23 0027 57 97 09/23 0000 94 BIPAP 65% 09/23 0000 97.2 58 24 92/48 93 BIPAP 65% 09/22 2237 63 90 09/22 2000 93 Nasal 80% Cannula 09/22 1750 78 Nasal 55% Cannula 09/22 1740 65 180/90 09/22 1703 94 Nasal 55% Cannula 09/22 1600 94 Nasal 55% Cannula 09/22 1600 98.0 62 24 128/80 94 Nasal 55% Cannula 09/22 1200 93 Nasal 55% Cannula Intake & Output 09/23 1600 16 0800 09/23 0000 Intake Total 384 384 Output Total 265 175 Balance 119 209 Intake, IV 384 354 Intake, Oral 0 30 Output, Stool 0 150 Output, Urine 265 25 Exam General Appearance: no apparent distress, alert, awake, lethargic Head: atraumatic, normal appearance Respiratory: normal breath sounds, chest non-tender, decreased breath sounds, tachypnic Cardiovascular: regular rate/rhythm Gastrointestinal: soft, non-tender, no organomegaly Extremities: normal inspection, no edema Cranial Nerves: PERRL Weaning Parameters NIF: 32 Minute Volume: 11.3 Resp rate: 20 Vt: 558 Heart Rate: 80 Weaning Schedule Minute Volume: 8.4 Resp Rate: 23 Vt: 350 Heart Rate: 80 End Time: 1035 Minute Volume: 17.5 Resp Rate: 40 Vt: 435 Heart Rate: 95 Start Time: 1100 Minute Volume: 7.9 Resp Rate: 25 Vt: 388 Heart Rate: 86 End Time: 1235 Minute Volume: 8.8 Resp Rate: 37 Vt: 280 Heart Rate: 89 Current Medications: Current Medications Sig/Ry Start time Last Medication Dose Route Stop Time Status Admin Acetylcysteine 2 ML EVERY 4 HRS/AWAKE 09/23 1999 AC 09/23 INH 0759 Albuterol Sulfate 3 ML EVERY 4 HRS/AWAKE 09/01 2000 AC 09/23 INH 0759 Albuterol Sulfate 3 ML Q4H PRN 08/27 1000 AC 08/28 INH 1309 Enoxaparin Sodium 40 MG DAILY 09/03 1000 AC 09/23 SC 0939 Furosemide 20 MG ONCE ONE 09/23 0915 DC 09/23 IV 09/23 0916 0913 Furosemide 20 MG ONCE ONE 09/22 2300 CAN IV 09/22 2301 Lorazepam 2 MG Q3P PRN 09/21 0945 AC 09/22 IV 1738 Magnesium Oxide 400 MG DAILY 09/12 1000 AC 09/22 PO 0913 Morphine Sulfate 2 MG Q3P PRN 09/15 0930 AC 09/22 IV 0519 Pantoprazole Sodium 40 MG DAILY 08/27 1000 AC 09/23 IV 0939 Potassium Chloride 40 MEQ Q13H 09/19 0900 AC 09/22 Dextrose/Sodium 1,000 ML IV 1738 Chloride Potassium Chloride 20 MEQ DAILY 09/12 1000 AC 09/22 PO 0913 Propranolol HCl 10 MG 1800 09/21 1800 AC 09/22 PO 1740 Sertraline HCl 50 MG DAILY 09/07 1301 AC 09/22 PO 0913 Sodium Chloride 250 ML BOLUS ONE 09/22 1300 DC 09/22 IV 09/22 1359 1318 Trazodone HCl 200 MG AT BEDTIME 09/07 2200 AC 09/22 PO 2104 Impression/Plan Impression/Problem List Impression: Ms. Camacho is a 60 year old female with PMH anxiety, depression, COPD , prior episode of severe clostridium difficile infection in 2016, tobacco abuse and gastritis who presented to the [place] ED after one week of altered mental status, decreased oral intake and possible withdrawl symptoms as her clonazepam was being titrated off per doctor instructions. She was found to be hypotensive, febrile and altered while in the [place] ED. Neurological She most likely had Metabolic encephalopathy on admission, likely secondary to severe sepsis from sigmoid perforation/peritonitis. On admission CT head negative for acute intracranial pathology. * Alert and follow commands * Strength 5/5 X4 * Psych meds including trazodone, propranolol, sertraline daily, and Ativan 2mg PRN Plan 1.NTD Cardiovascular Sinus tachycardia with T wave changes on admission(resolved).ACS was excluded. Echo showed normal global LV function without wall motion abnormalities and normal pulm artery systolic pressure Medications * Patient has bradycardia * Blood pressure was unstable overnight * Propranolol 10 mg at bedtime Plan 1.Continue monitor vitals 2.We will consult envelope addresser, to help control heart rate, blood pressure and to help guide the diuresis Respiratory Patient initially placed on non-rebreather but was transitioned to high flow nasal cannula/ BiPAP due to tachypnea/apparent respiratory distress. Patient tolerated BiPAP well but was intubated for Ho's procedure, POD# 26, patient remained intubated until 09/15/16. Noted bilateral pleural effusions on CT chest, patient s/p thoracentesis on 09/02 and again on 09/13. the thoracentesis done on 09/13 was complicated by pneumothorax for which chest tube was placed in the left lung. Recent CTA days ago ruled out PE as a cause of increased O2 requirements. * Patient is more tachypneic this morning. She required higher oxygen percent. * Now saturating lower 90s on 70% BiPAP Pulmonary medications * Albuterol * Nebs Plan 1.TRC/Nebs 2.Aspiration precautions 3.Repeat x-ray 4.40 mg of IV Lasix Renal Had SIERRA on presentation Likely prerenal in the setting of severe sepsis. Kidney function is back to normal after IV hydration. * Patient overall have a positive balance * Yesterday intake was 1616 and output was 460 Plan 1.Continue monitoring renal function daily 2.Continue strict I/Os 3.40 mg IV Lasix Fluids, Electrolytes, and Nutrition (FEN) * Na 141 and K 4.4 * Patient is now on ground and thin diet Plan 1.Repeat chemistry daily 5.continue ground and nectar diet. Infectious Diseases Patient presented with fever, leukocytosis, hypotension and tachycardia secondary to peritonitis from perforated sigmoid colon with abscess formation, S /P Harmann's procedure with Dr. Armendariz. Blood cultures showed no growth, lower respiratory culture grew pseudomonas (resistent to zosyn) and culture from OR grew E.Coli, alpha/beta strep and brandon. She was placed on IV fluconazole and IV meropenem. IR placed one RUQ drain and one LLQ drain to drain this fluid. LLQ was subsequently taken out but the RUQ drain remains in place. Patient grew Pseudomonas in sputum culture (09/14/16), this was found to be sensitive meropenem. Patient possibly has hospital-acquired pneumonia. Antibiotic was DC 'd 2 days ago * Tmax: 98 * WBCs: 12.5 * Fulton was inserted yesterday again Plan 1.watch off antibiotic Hematology Patient given total of 4 U PRBC since admission. Initial had thrombocytopenia likely 2/2 coagulopathly from sepsis, 4Ts score placed patient at low risk for HIT (<5%) so SC lovenox was Resumed on 09/02. * H&H this morning is 8.2 & 25.5 * Platelet count 671 Plan 1.Follow up CBC daily, monitor for bleeding FULL CODE DVT prophylaxis: ALPS + SC lovenox Ulcer prophylaxis: Pantoprazole Problem List: 1. Status post Ho's procedure Pain Ratin Tomorrow's Labs & Rationales: CBC and ICU bundle Plan DVT/Prophylaxis: mechanical, pharmacological Code Status: Full Code ABELARDO CARIAS MD 09/23/16 0903: Attending MD Review Statement Attending Sign Off Attending Cosign Statement: I have: examined this patient, reviewed avalbl EMR data, personally reviewd images, discussd w/resident/PA/STATE FARM AGENT, discussed mgmt plan w/kavya, discussed mgmt plan w/CM, discussed mgmt plan w/pt, agreed w/resident/PA/STATE FARM AGENT, amended to note. Other Findings: Abelardo Diamond M.D. have examined this patient, reviewed available EMR data, personally reviewed images, discussed with resident/PA/STATE FARM AGENT, discussed management plan with housestaff and nursing staff, discussed managment plan all of healthcare providers, discussed management plan with patient and/or family, agreed with resident/PA/STATE FARM AGENT. The past history and parts of the chart have been autopopulated. Follow-up surgical and ID recommendations PT/OT reduce fio2 TTS 35 min
--- NOTE | 2016-09-23 09:30 | NUR ---
Patient is drowsey but arousable to verbal stimuli- able to follow commands and shake head yes and no appropriately to questions. A 1:1 sitter is at the bedside. SB-NSR on tele monitor, HR= 50-60's. SBP: 130-140's manually with the autocuff reading lower. Currently on 65% Bi-pap with a rate of 24- Ipap 20, Epap 6- O2 sats 94-96%- Lungs diminished with scant crackles at the bases. She was unable to tolerate coming off the bi-pap for more than a few minutes without complaining of shortness of breath- IV lasix previously given. Abdomen is soft with bowel sounds. A left sided colostomy is in place- stoma is intact but slightly irritated- Scant amounts of brown stool noted. A midline incision is noted- sutures have been removed but a small open area is noted to the posterior aspect of the incision- full thickness with scant amounts of serosangenous drainage. NPO at this time- Fulton in place draining clear yellow urine. Skin is pale but warm and dry. Trace BLE edema is noted. ANASTACIA PICC line in place and site is WNL. D5NS w/ 40 meq KCL infusing at 50mls/hr. No s/s of pain are currently noted. Will continue to closely monitor patient.
--- NOTE | 2016-09-23 09:53 | PN- Infect Dx ---
Subjective Subjective: Afebrile without complaints. Her Fulton catheter was reinserted overnight due to concern regarding low urine output in the setting of a fluctuating blood pressure and increased shortness of breath. Objective Last 24 Hrs of Vital Signs/I&O Vital Signs Date Time Temp Pulse Resp B/P B/P Pulse O2 O2 Flow FiO2 Mean Ox Delivery Rate 09/23 0835 52 95 09/23 0800 97.7 54 32 138/60 95 BIPAP 65% 09/23 0800 95 BIPAP 65% 09/23 0530 55 96 09/23 0400 96 BIPAP 65% 09/23 0027 57 97 09/23 0000 94 BIPAP 65% 09/23 0000 97.2 58 24 92/48 93 BIPAP 65% 09/22 2237 63 90 09/22 2000 93 Nasal 80% Cannula 09/22 1750 78 Nasal 55% Cannula 09/22 1740 65 180/90 09/22 1703 94 Nasal 55% Cannula 09/22 1600 94 Nasal 55% Cannula 09/22 1600 98.0 62 24 128/80 94 Nasal 55% Cannula 09/22 1200 93 Nasal 55% Cannula Intake & Output 09/23 1600 09/23 0800 0616 0000 Intake Total 384 384 Output Total 265 175 Balance 119 209 Intake, IV 384 354 Intake, Oral 0 30 Output, Stool 0 150 Output, Urine 265 25 Physical Exam Other Physical Findings: She is awake and alert in no acute distress on BiPAP Lungs are clear Heart regular rhythm with no murmur Abdomen is soft, nontender with positive bowel sounds; liquid stool in colostomy Extremities no cyanosis, clubbing or edema; PICC in the right upper extremity with no inflammation at the site Fulton catheter in place Results Last 24 Hours of Lab Results: Laboratory Tests 09/23 09/22 0430 2345 Chemistry Sodium (137 - 145 mmol/L) 141 Potassium (3.5 - 5.1 mmol/L) 4.4 Chloride (98 - 107 mmol/L) 107 Carbon Dioxide (22 - 30 mmol/L) 30 Anion Gap (5 - 16) 4 L BUN (7 - 17 mg/dL) 7 Creatinine (0.5 - 1.0 mg/dL) 0.4 L Estimated GFR (>60 ml/min) > 60 BUN/Creatinine Ratio (7 - 25 %) 17.5 Hematology CBC w Diff NO MAN DIFF REQ WBC (4.8 - 10.8 /CUMM) 12.5 H RBC (4.20 - 5.40 /CUMM) 2.78 L Hgb (12.0 - 16.0 G/DL) 8.2 L Hct (37 - 47 %) 25.5 L MCV (81.0 - 99.0 FL) 91.9 MCH (27.0 - 31.0 PG) 29.4 RDW (11.5 - 14.5 %) 16.9 H Plt Count (130 - 400 /CUMM) 671 H MPV (7.4 - 10.4 FL) 7.7 Gran % (42.2 - 75.2 %) 81.3 H Lymphocytes % (20.5 - 51.1 %) 11.5 L Monocytes % (1.7 - 9.3 %) 6.0 Eosinophils % (0 - 5 %) 1.0 Basophils % (0.0 - 2.0 %) 0.2 Absolute Granulocytes (1.4 - 6.5 /CUMM) 10.2 H Absolute Lymphocytes (1.2 - 3.4 /CUMM) 1.4 Absolute Monocytes (0.10 - 0.60 /CUMM) 0.8 H Absolute Eosinophils (0.0 - 0.7 /CUMM) 0.1 Absolute Basophils (0.0 - 0.2 /CUMM) 0 PUBS MCHC (33.0 - 37.0 G/DL) 32.0 L Urines Ur Random Creatinine (mg/dL) 38.0 Ur Random Sodium (30 - 90 mmol/L) 214 H Ur Random Potassium (mmol/L) 64.3 Fraction Sodium Excret (<1% %) 2.0 H Last 24 Hours of [place] Results: Urine culture September 22 pending Recent Imaging Studies: Chest x-ray September 22 persistent bilateral pleural effusions Assessment/Plan Impression: Stable with temperatures remaining normal and white blood cell count continuing to decrease now off antibiotics after nearly 3 weeks of drainage of a purulent fluid collection now 4 weeks status post Granger's procedure for a perforated sigmoid colon. Her respiratory status remains tenuous, with concern regarding possible fluid overload, for which she is to receive Lasix this morning. Suggestion: 1. Further management of her fluid status per Medicine 2. Continue to follow off antibiotics
--- NOTE | 2016-09-23 10:00 | NUR ---
Physical therapy: Spoke with RN prior to PT treatment. RN reports that patient cannot come off BiPap at this time. Not appropriate for PT treatment today. Will follow up tomorrow as appropriate. Thank you.
--- NOTE | 2016-09-23 11:26 | RADIOLOGY REPORT ---
EXAMINATION: XR PORTABLE CHEST CLINICAL INFORMATION: Increased respiratory rate. Increasing need for oxygen. COMPARISON: 09/22/2016 TECHNIQUE: Portable frontal view of the chest was obtained. FINDINGS: Right-sided PICC line terminates over the mid SVC. Cardiac leads overlie the chest. The lungs are well expanded. Small bilateral pleural effusions with associated airspace opacities are similar to previous. No pneumothorax. The cardiomediastinal silhouette is unchanged, with a calcified aorta. IMPRESSION: No significant change from prior. Small bilateral pleural effusions with associated airspace opacity.
[2016-09-23 12:00] VITALS: BP 130/68
[2016-09-23 16:00] VITALS: BP 142/70
--- NOTE | 2016-09-23 17:45 | NUR ---
propranolol held due to heart rate being in the 50's to low 60's per dr mcintyre.
--- NOTE | 2016-09-23 17:59 | NUR ---
Colostomy bag changed due to leaking, skin around stoma red, inflammed, tender. Site cleaned and new appliance placed. Awaiting stoma paste to help raise stoma from stomach crease. Will monitor drainage around ostomy wafer. Green liquid noted in bag.
[2016-09-23 20:00] VITALS: BP 130/70
--- NOTE | 2016-09-23 22:53 | NUR ---
Colostomy bag leaking again, skin irritated. Cleaned. Stoma paste applied. New appliance placed. Will monitor.
--- NOTE | 2016-09-23 23:12 | Cons- Cardiology ---
General Information and HPI Consulting Request Date of Consult: 09/23/16 Requested By: GARY CARIAS MD History of Present Illness: This patient is a 60 year old female with history of COPD who is four weeks status post a Granger's procedure for a perforated sigmoid colon. Her hospital course was complicated by mental status changes, peritonitis and renal insufficiency. Upon admission this patient was tachycardic but was noted recently to be bradycardic with a heart rate in the forties. The patient denies chest discomfort, lightheadedness or palpitations but does feel short of breath. Allergies/Medications Allergies: Coded Allergies: azithromycin (Intermediate, NAUSEA AND VOMITING 08/26/16) Home Med List: Albuterol Sulfate (Ventolin Hfa) 90 MCG HFA.AER.AD 2 PUF INH Q4-6 PRN PRN SHORTNESS OF BREATH (Reported) Baclofen 10 MG TABLET 1 TAB PO UNKNOWN (Reported) Budesonide/Formoterol Fumarate (Symbicort 160-4.5 Mcg Inhaler) 160 MCG-4.5 MCG/ ACTUATION HFA.AER.AD 2 PUF INH BID BREATHING PROBLEMS (Reported) Clonazepam 0.5 MG TABLET 1 TAB PO DAILY ANXIETY (Reported) Hydroxyzine HCl 25 MG TABLET 2 TAB PO BID UNKNOWN (Reported) Paroxetine HCl (Paxil) 10 MG TABLET 1 TAB PO DAILY ANXIETY (Reported) Propranolol HCl 10 MG TABLET 1 TAB PO QPM UNKNOWN (Reported) Sertraline HCl 100 MG TABLET 2 TAB PO DAILY MENTAL HEALTH (Reported) Tramadol HCl 50 MG TABLET 1 TAB PO BIDP PRN UNKNOWN (Reported) Trazodone HCl 100 MG TABLET 2 TAB PO QPM SLEEP (Reported) Review of Systems Review of Systems: A review of systems is unremarkable. Past History Travel History Traveled to [place] past 21 day No Medical History Blood Transfusion Hx: No (none in [employer]) Neurological: NONE EENT: NONE Cardiovascular: NONE Respiratory: COPD Gastrointestinal: gastritis, HP-neg C Difficile 2016 diverticulosis coli Colonic SSP/adenoma/TA Hepatic: NONE Renal: SIERRA (? 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 Home Who Do You Live With? sister, Maude Last ([phone]) Services at Home: None Primary Language: Portuguese Smoking Status: Current Everyday Smoker ETOH Use: reportedly none Illicit Drug Use: benzodiazepines (? if rxd) Living Will? no Power of Commercial Ocean Clammer/HCP? no (pt's sister is closest ) Other Social History: Limited- unobtainable from pt. Per computer, & lives with sister, Maude Last, but there is no definite POA. Long time smoker with COPD. Reportedly no EtOH. On benzodiazepines- ? if rxd. Functional Ability ADLs Unknown: dressing, eating, toileting, bathing. Ambulation: unknown IADLs Unknown: shopping, housework, finances, food prep, telephone, transportation, medication admin. Employment History Employment: unknown ECHO Results (as available) Date of last Echo 08/26/16 EF% 65 Exam & Diagnostic Data Vital Signs and I&O Vital Signs Date Time Temp Pulse Resp B/P B/P Pulse O2 O2 Flow FiO2 Mean Ox Delivery Rate 09/23 2223 64 96 09/23 2000 97 Nasal 70% Cannula 09/24 1999 98.4 65 20 130/70 97 Nasal 70% Cannula 09/23 1947 97 Nasal 70% Cannula 09/23 1746 58 09/23 1615 94 Nasal 70% Cannula 09/23 1600 95 Nasal 70% Cannula 09/23 1600 98.5 65 20 142/70 95 Nasal 70% Cannula 09/23 1300 95 Nasal 70% Cannula 09/23 1259 62 95 09/23 1203 92 BIPAP 65% 09/23 1202 62 92 09/23 1200 93 Nasal 70% Cannula 09/23 1200 97.9 60 24 130/68 93 Nasal 70% Cannula 09/23 0835 52 95 09/23 0800 97.7 54 32 138/60 95 BIPAP 65% 09/23 0800 95 BIPAP 65% 09/23 0530 55 96 09/23 0400 96 BIPAP 65% 09/23 0027 57 97 09/23 0000 94 BIPAP 65% 09/23 0000 97.2 58 24 92/48 93 BIPAP 65% Intake & Output 09/23 1600 09/23 0800 09/23 0000 09/22 1600 09/22 0800 09/22 0000 Intake Total 512 384 384 848 542 561 Output Total 1700 265 175 50 11 Balance -1188 119 209 798 531 561 Intake, IV 392 384 354 728 442 381 Intake, Oral 120 0 30 120 100 180 Output, Stool 50 0 150 1 Output, Urine 1650 265 25 50 10 Physical Exam: General: WD/ WN female in NAD; alert and oriented x 3 HEENT: NC/ AT, PERRL, EOMI Neck: no JVD, no carotid bruits Heart: RRR Lungs: clear bilaterally Abdomen: soft, NT, +ve bowel sounds Extremities: no edema Assessment/Plan Assessment/Plan * This patient does have periods of bradycardia while on propranolol but this is not symptomatic. Recheck TSH and free T4. Continue to monitor on telemetry and continue her current dose of beta john unless symptomatic. Consult Acknowledgment - Thank you for your consult request.
[2016-09-24] VITALS: BP 120/70
--- NOTE | 2016-09-24 00:45 | NUR ---
PATIENT RECEIVED ALERT AND RESPONSIVE, ORIENTED TO PERSON AND PLACE BUT NOT DATE, SKIN PALE, WARM AND DRY, TOLERATING BIPAP WELL, FIO2 65%- CONTINUOUS O2 SAT 96%, BREATHE SOUNDS CLEAR ANTERIOR BUT DIMINISHED AT BOTH BASES, ABDOMEN SOFT, +BS, COLOSTOMY PINK, BONGORT INTACT-ONLY SCANT WATERY DRAINAGE NOTED AT THIS TIME, DRESSINGS TO LEFT ANTERIOR CHEST, RUQ, AND LOWER ABDOMEN ALL CLEAN, DRY AND INTACT, TOBAR TO GRAVITY DRAINAGE WITH CLEAR YELLOW UO, 1:1 SITTER AT BEDSIDE FOR SAFETY, PATIENT HAS C/O INCREASING BACK PAIN 10/17- MEDICATED ORDERED AND SETTLED FOR SLEEP, CALL LIGHT WITHIN REACH, MANAGER HOME IMPROVEMENT SINUS BRADYCARDIA TO SINUS WITHOUT ECTOPY, HEART RATE 58 TO 66/MIN
--- NOTE | 2016-09-24 03:02 | NUR ---
DR PEREZ MADE AWARE OF SCANT UO TONIGHT AFTER DIURESIS EARLIER IN AM- NO CHANGES IN ORDERS AT THIS TIME, PATIENT SLEEPING SOUNDLY ON BIPAP- O2 SAT 94 TO 97%, ENAMELER SINUS WITH HEART RATE 55 TO 66/MIN
--- NOTE | 2016-09-24 04:24 | NUR ---
0350 PATIENT SUDDENLY DE-SATTED DOWN TO 80%- RT IN AND INCREASED FIO2 TO 100%, THEN NTS PATIENT WITH LARGE AMTS THICK WHITE SECRETIONS OBTAINED
[2016-09-24 05:25] LABS: ABSOLUTE BASOPHIL COUNT 0 /CUMM (0.0-0.2); ABSOLUTE EOSINOPHIL COUNT 0.1 /CUMM (0.0-0.7); ABSOLUTE GRANULOCYTE CT 10.1 /CUMM (1.4-6.5); ABSOLUTE LYMPH COUNT 1.9 /CUMM (1.2-3.4); BASOPHIL % 0.3 % (0.0-2.0); GRANULOCYTE % 76.4 % (42.2-75.2); HEMATOCRIT 27.6 % (37-47); MEAN CORPUSCULAR HGB 29.1 PG (27.0-31.0); MEAN CORPUSCULAR VOLUME 90.9 FL (81.0-99.0); MEAN PLATELET VOLUME 7.9 FL (7.4-10.4); PLATELET COUNT 660 /CUMM (130-400); RBC DISTRIBUTION WIDTH 17.3 % (11.5-14.5); RED BLOOD CELL CT 3.04 /CUMM (4.20-5.40); WHITE BLOOD CELL COUNT 13.2 /CUMM (4.8-10.8)
--- NOTE | 2016-09-24 06:43 | NUR ---
FIO2 TITRATED BACK TO 65% BY RT- O2 SAT AT 97%, UO REMAINS LOW, HEART RATE 55 TO 68/MIN OVERNIGHT, AWAITING AM MD ROUNDS
[2016-09-24 08:00] VITALS: BP 136/80
--- NOTE | 2016-09-24 09:34 | PN- CRCU ---
Subjective HPI/Critical Care Issues: pt seen and examined drains are removed afebrile 70% fio2 on high flow nasal cannula yellowish sputum CXR unchanged small effusions wbc 13.2 from 12.5 negative about 1100 cc fluid balance Objective Current Medications: Current Medications Sig/Ry Start time Last Medication Dose Route Stop Time Status Admin Acetylcysteine 2 ML EVERY 4 HRS/AWAKE 09/23 1999 AC 09/24 INH 0740 Albuterol Sulfate 3 ML EVERY 4 HRS/AWAKE 09/02 1999 AC 09/24 INH 0740 Albuterol Sulfate 3 ML Q4H PRN 08/27 1000 AC 08/28 INH 1309 Enoxaparin Sodium 40 MG DAILY 09/03 1000 AC 09/23 SC 0939 Furosemide 20 MG ONCE ONE 09/23 1030 DC 09/23 IV 09/23 1031 1232 Lorazepam 2 MG Q3P PRN 09/21 0945 AC 09/23 IV 2147 Magnesium Oxide 400 MG DAILY 09/12 1000 AC 09/22 PO 0913 Morphine Sulfate 2 MG Q3P PRN 09/15 0930 AC 09/24 IV 0023 Pantoprazole Sodium 40 MG DAILY 08/27 1000 AC 09/23 IV 0939 Potassium Chloride 40 MEQ Q13H 09/19 0900 AC 09/24 Dextrose/Sodium 1,000 ML IV 0554 Chloride Potassium Chloride 20 MEQ DAILY 09/12 1000 AC 09/22 PO 0913 Propranolol HCl 10 MG 1800 09/21 1800 AC 09/22 PO 1740 Sertraline HCl 50 MG DAILY 09/07 1301 AC 09/22 PO 0913 Trazodone HCl 200 MG AT BEDTIME 09/07 2200 AC 09/23 PO 2011 Vital Signs & I&O Last 24 Hrs of Vitals and I&O: Vital Signs Date Time Temp Pulse Resp B/P B/P Pulse O2 O2 Flow FiO2 Mean Ox Delivery Rate 09/24 0746 94 Nasal 70% Cannula 09/24 0745 64 90 09/24 0548 68 97 09/24 0545 64 10 09/24 0400 93 BIPAP 100% 09/24 0356 94 BIPAP 100% 09/24 0344 63 91 09/24 0018 61 95 09/24 0000 96 BIPAP 65% 09/24 0000 97.9 66 32 120/70 96 BIPAP 65% 09/23 2223 64 96 09/24 1999 97 Nasal 70% Cannula 09/24 1999 98.4 65 20 130/70 97 Nasal 70% Cannula 09/23 1947 97 Nasal 70% Cannula 09/23 1746 58 09/23 1615 94 Nasal 70% Cannula 09/23 1600 95 Nasal 70% Cannula 09/23 1600 98.5 65 20 142/70 95 Nasal 70% Cannula 09/23 1300 95 Nasal 70% Cannula 09/23 1259 62 95 09/23 1203 92 BIPAP 65% 09/23 1202 62 92 09/23 1200 93 Nasal 70% Cannula 09/23 1200 97.9 60 24 130/68 93 Nasal 70% Cannula Intake & Output 09/24 1600 09/24 0800 09/24 0000 Intake Total 368 518 Output Total 93 725 Balance 275 -207 Intake, IV 368 428 Intake, Oral 90 Output, Stool 0 75 Output, Urine 93 650 Patient 141 lb Weight Weight Bed scale Measurement Method Exam Other Physical Findings: gen awake heent ncat cvs s1, s2 lungs reduced air entry, rare rhonchi abd soft, bs+ ext trace edema Results Last 24 Hrs of Lab Results: Laboratory Tests 09/24/16 0400: Anion Gap 10, Estimated GFR > 60, Glucose 70, Calcium 8.5, Phosphorus 4.1, Magnesium 1.6, Total Bilirubin 0.3, AST 17, ALT 34, Albumin 2.3 L, TSH 10.800 H, Free T4 1.60, CBC w Diff NO MAN DIFF REQ, RBC 3.04 L, MCV 90.9, MCH 29.1, RDW 17.3 H, MPV 7.9, Gran % 76.4 H, Lymphocytes % 14.5 L, Monocytes % 7.8, Eosinophils % 1.0, Basophils % 0.3, Absolute Granulocytes 10.1 H, Absolute Lymphocytes 1.9, Absolute Monocytes 1.0 H, Absolute Eosinophils 0.1, Absolute Basophils 0, PUBS MCHC 32.0 L Impression/Plan Impression/Plan Impression/Plan: Impression 60 year old woman * hypoxemic respiratory failure, exutbated * s/p pericolic abscess s/p drainage and sigmoid colectomy with end colostomy Plan Respiratory -repeat cxr today -negative fluid balance, maintain 1 to 1.5 liter negative -if cxr unchanged, would give 40mg lasix today -TRC/Nebs -cont high flow, with plan to reduce fio2 as tolerated -spo2 goal >88% ID -f/u ID recommendations -wbc stable, 13.2 today, all drains removed -monitoring off abx with consultation from ID -dc mucomyst tomorrow CVS -monitor hemodynamics Heme -monitor cbc, coags -anemia likely chronic in nature, no acute blood loss, check anemia panel including iron studies, b12, folate Metabolic -negative fluid balance -monitor electrolytes -goal k 4, mag 2, phos 4 Alimentary -aspiration precautions -diet as tolerated Neuro -anxiolysis -psychiatry previously followed, re-evaluation given inconsistent response to psychiatric medications DVT prophylaxis at all times - lovenox TTS 35 min Remain in ICU until reduction of fio2 Code Status: Full Code
--- NOTE | 2016-09-24 09:53 | RADIOLOGY REPORT ---
EXAMINATION: XR PORTABLE CHEST CLINICAL INFORMATION: Pneumonia with pleural effusion. COMPARISON: Recent priors. TECHNIQUE: Single portable AP erect view of the chest was obtained. FINDINGS: The right arm PICC remains in stable position with the tip at the level of the deep SVC. There are persistent bilateral moderate pleural effusions with bibasilar opacity consistent with atelectasis and/or pneumonia. No new abnormality. IMPRESSION: Stable appearance of bilateral pleural effusions with bibasilar opacification.
--- NOTE | 2016-09-24 10:18 | PN- Resident CRCU ---
Subjective HPI/CRCU Issues: Afebrile afebrile, hemodynamically stable, and saturating lower 90s on 70% high flow nasal cannula. Patient reports that cough productive of yellowish sputum, but denies fever, chills, or chest pain. Patient still complaining of mild shortness. However can speak in a full sentences this morning. She denies any other currently active complaints. Objective Vital Signs & I&O Last 8 Hrs of Vitals and I&O: Vital Signs Date Time Temp Pulse Resp B/P B/P Pulse O2 O2 Flow FiO2 Mean Ox Delivery Rate 09/24 0800 95 Nasal 70% Cannula 09/24 0800 98.8 63 27 136/80 95 Nasal 70% Cannula 09/24 0746 94 Nasal 70% Cannula 09/24 0745 64 90 09/24 0548 68 97 09/24 0545 64 10 09/24 0400 93 BIPAP 100% 09/24 0356 94 BIPAP 100% 09/24 0344 63 91 09/24 0018 61 95 09/24 0000 96 BIPAP 65% 09/24 0000 97.9 66 32 120/70 96 BIPAP 65% 09/23 2223 64 96 09/24 1999 97 Nasal 70% Cannula 09/24 1999 98.4 65 20 130/70 97 Nasal 70% Cannula 09/23 1947 97 Nasal 70% Cannula 09/23 1746 58 09/23 1615 94 Nasal 70% Cannula 09/23 1600 95 Nasal 70% Cannula 09/23 1600 98.5 65 20 142/70 95 Nasal 70% Cannula 09/23 1300 95 Nasal 70% Cannula 09/23 1259 62 95 Intake & Output 09/24 1600 09/24 0800 09/24 0000 Intake Total 368 518 Output Total 93 725 Balance 275 -207 Intake, IV 368 428 Intake, Oral 90 Output, Stool 0 75 Output, Urine 93 650 Patient 63.957 kg Weight Weight Bed scale Measurement Method Exam General Appearance: well developed/nourished, no apparent distress, alert, awake , comfortable, 70% FiO2 high flow nasal cannula Head: atraumatic, normal appearance Respiratory: normal breath sounds, no respiratory distress, diminished air entry over lung bases bilaterally Cardiovascular: regular rate/rhythm Gastrointestinal: normal bowel sounds, soft, non-tender, purulent discharge from the right side abdominal incision Extremities: normal inspection, trace edema Cranial Nerves: normal speech, PERRL Weaning Parameters NIF: 32 Minute Volume: 11.3 Resp rate: 20 Vt: 558 Heart Rate: 80 Weaning Schedule Minute Volume: 8.4 Resp Rate: 23 Vt: 350 Heart Rate: 80 End Time: 1035 Minute Volume: 17.5 Resp Rate: 40 Vt: 435 Heart Rate: 95 Start Time: 1100 Minute Volume: 7.9 Resp Rate: 25 Vt: 388 Heart Rate: 86 End Time: 1235 Minute Volume: 8.8 Resp Rate: 37 Vt: 280 Heart Rate: 89 Current Medications: Current Medications Sig/Ry Start time Last Medication Dose Route Stop Time Status Admin Acetylcysteine 2 ML EVERY 4 HRS/AWAKE 09/23 1999 AC 09/24 INH 1210 Albuterol Sulfate 3 ML EVERY 4 HRS/AWAKE 09/01 2000 AC 09/24 INH 1210 Albuterol Sulfate 3 ML Q4H PRN 08/27 1000 AC 08/28 INH 1309 Dextrose/Sodium 1,000 ML ONCE ONE 09/24 0930 AC 09/24 Chloride IV 09/25 0529 1022 Enoxaparin Sodium 40 MG DAILY 09/03 1000 AC 09/24 SC 1019 Lorazepam 2 MG Q3P PRN 09/21 0945 AC 09/23 IV 2147 Magnesium Oxide 400 MG DAILY 09/12 1000 AC 09/24 PO 1019 Morphine Sulfate 2 MG Q3P PRN 09/15 0930 AC 09/24 IV 0023 Omeprazole 40 MG DAILY AC 09/25 0700 AC PO Pantoprazole Sodium 40 MG DAILY 08/27 1000 DC 09/23 IV 0939 Potassium Chloride 40 MEQ Q13H 09/19 0900 DC 09/24 Dextrose/Sodium 1,000 ML IV 0554 Chloride Potassium Chloride 20 MEQ DAILY 09/12 1000 AC 09/24 PO 1019 Propranolol HCl 10 MG 1800 09/21 1800 AC 09/22 PO 1740 Sertraline HCl 50 MG DAILY 09/07 1301 AC 09/24 PO 1019 Trazodone HCl 200 MG AT BEDTIME 09/07 2200 AC 09/23 PO 2011 Impression/Plan Impression/Problem List Impression: Ms. Camacho is a 60 year old female with PMH anxiety, depression, COPD , prior episode of severe clostridium difficile infection in 2016, tobacco abuse and gastritis who presented to the [facility] after one week of altered mental status, decreased oral intake. She was found to be hypotensive, febrile and altered while at [facility]. she was diagnosed with peritonitis 2/2 perforated sigmoid colon with abscess formation, S/P Harmann's procedure with Dr. Armendariz. Lower respiratory culture grew pseudomonas (resistent to zosyn) and culture from OR grew E.Coli, alpha/beta strep and brandon. She was diagnosed with hospital- acquired pneumonia and was placed on IV fluconazole and IV meropenem. Now patient is off Abx. Neurological * AMS on admission most likely 2/2 severe sepsis from sigmoid perforation/ peritonitis. * Today patient is awake, alert, and oriented X3 * Strength 5/5 X4 * Psych meds including trazodone, propranolol, sertraline daily, and Ativan 2mg PRN Cardiovascular * Sinus tachycardia with T wave changes on admission(resolved). * ACS was excluded and Echo did implement any pathology. * She is on Propranolol 10 mg at bedtime * We will follow cardiology recommendation in regard of unstable blood pressure, multiple bradycardia, and to guide diuresis. Respiratory * Patient was intubated for Ho's procedure, patient remained intubated until 09/15/16. * thoracentesis on 09/02/16 and again on 09/13/16. * X-ray this a.m. did not show any change when compared to the previous one * Now saturating lower 90s on 70% high flow nasal cannula * TRC/Nebs * Aspiration precautions(thickened fluid) * Give IV 40 mg of Lasix Renal * Had SIERRA on presentation Likely prerenal in the setting of severe sepsis. Kidney function is back to normal after IV hydration. * Patient overall have a positive balance * Yesterday had about 1100CC negative balance * We'll Continue strict I/Os * Will receive 40 mg IV Lasix Fluids, Electrolytes, and Nutrition (FEN) * We'll replete potassium and magnesium to keep up the goal * we'll Continue ground and nectar diet. Infectious Diseases * During this admission received IV meropenem and IV fluconazole as a treatment for peritonitis with or culture growing Escherichia coli and fungal infection. * During this admission same antibiotic mentioned above used to treat questionable aspiration pneumonia * This morning she is afebrile * WBCs: 13.2 up from 12.5 * She has a very mild purulent discharge from the right dominant surgical incision * We will ask surgery to examine the patient Hematology * Had total of 4 U PRBC since admission. * Stable H&H * Mild thrombocytosis 660 * Normocytic anemia with Serum iron 19(L), TIBC 208(L), ferritin 296(H). This point towards early stage anemia of chronic disease. * We'll check B12 and folic acid given the anemia of chronic disease with a MCV of 90. Endocrinology * TSH the same as elevated to 10 with normal free T4 * We will add total T3 FULL CODE DVT prophylaxis: ALPS + SC lovenox Ulcer prophylaxis: Pantoprazole Problem List: 1. Status post Ho's procedure Pain Ratin Tomorrow's Labs & Rationales: CBC and ICU bundle Plan DVT/Prophylaxis: mechanical, pharmacological Code Status: Full Code
--- NOTE | 2016-09-24 10:42 | NUR ---
PHYSICAL THERAPY- PT W/ CONT HIGH SUPPLEMENTAL O2 NEEDS, BiPAP AND NC 70% FIO2. WILL DEFER TX AT THIS TIME 2* TENUOUS PULMONARY STATUS. WILL FOLLOW APPROPRIATE.
--- NOTE | 2016-09-24 11:10 | NUR ---
REPORTS PAIN AT OPENING OF SURGICAL SITE AT LOWER ABD, SERROUS FLUID IN OPENING REPORTED TO HARJINDER WILLS AND DR. CARIAS
[2016-09-24 16:00] VITALS: BP 130/70
--- NOTE | 2016-09-24 18:58 | PN- Cardiology ---
Subjective Subjective: The patient is comfortable. No chest pain. No shortness of breath. No palpitations. No diaphoresis. Objective Vital Signs and I&Os Vital Signs Date Time Temp Pulse Resp B/P B/P Pulse O2 O2 Flow FiO2 Mean Ox Delivery Rate 09/24 1755 94 Nasal 70% Cannula 09/24 1746 71 20 130/67 09/24 1200 95 Nasal 70% Cannula 09/24 0800 95 Nasal 70% Cannula 09/24 0800 98.8 63 27 136/80 95 Nasal 70% Cannula 09/24 0746 94 Nasal 70% Cannula 09/24 0745 64 90 09/24 0548 68 97 09/24 0545 64 10 09/24 0400 93 BIPAP 100% 09/24 0356 94 BIPAP 100% 09/24 0344 63 91 09/24 0018 61 95 09/24 0000 96 BIPAP 65% 09/24 0000 97.9 66 32 120/70 96 BIPAP 65% 09/23 2223 64 96 09/24 1999 97 Nasal 70% Cannula 09/24 1999 98.4 65 20 130/70 97 Nasal 70% Cannula 09/23 1947 97 Nasal 70% Cannula Intake & Output 09/24 1600 09/24 0800 09/24 0000 09/23 1600 09/23 0800 09/23 0000 Intake Total 584 368 518 512 384 384 Output Total 1690 93 725 1700 265 175 Balance -1106 275 -207 -1188 119 209 Intake, IV 424 368 428 392 384 354 Intake, Oral 160 90 120 0 30 Output, Stool 90 0 75 50 0 150 Output, Urine 1600 93 650 1650 265 25 Patient 141 lb Weight Weight Bed scale Measurement Method Physical Exam: Gen: NAD HEENT: normal Lungs: Decreased breath sounds, normal respiratory effort Heart: RRR, S1, S2, no murmurs Abdomen: Soft, nontender, no masses Extremities: No clubbing, cyanosis, or edema. Neuro: Alert and oriented x 3, cranial nerves intact Current Medications: Current Medications Sig/Ry Start time Last Medication Dose Route Stop Time Status Admin Acetylcysteine 2 ML EVERY 4 HRS/AWAKE 09/23 1999 AC 09/24 INH 1754 Albuterol Sulfate 3 ML EVERY 4 HRS/AWAKE 09/02 1999 AC 09/24 INH 1754 Albuterol Sulfate 3 ML Q4H PRN 08/27 1000 AC 08/28 INH 1309 Dextrose/Sodium 1,000 ML ONCE ONE 09/24 0930 AC 09/24 Chloride IV 09/25 0529 1022 Enoxaparin Sodium 40 MG DAILY 09/03 1000 AC 09/24 SC 1019 Furosemide 40 MG ONCE ONE 09/24 1230 DC 09/24 IV 09/24 1231 1303 Ibuprofen 600 MG ONCE ONE 09/24 1730 DC 09/24 PO 09/24 1731 1746 Lorazepam 2 MG Q3P PRN 09/21 0945 AC 09/23 IV 2147 Magnesium Oxide 400 MG DAILY 09/12 1000 AC 09/24 PO 1019 Morphine Sulfate 2 MG Q3P PRN 09/15 0930 AC 09/24 IV 0023 Omeprazole 40 MG DAILY AC 09/25 0700 AC PO Pantoprazole Sodium 40 MG DAILY 08/27 1000 DC 09/23 IV 0939 Potassium Chloride 40 MEQ Q13H 09/19 0900 DC 09/24 Dextrose/Sodium 1,000 ML IV 0554 Chloride Potassium Chloride 20 MEQ DAILY 09/12 1000 AC 09/24 PO 1019 Propranolol HCl 10 MG 1800 09/21 1800 AC 09/24 PO 1746 Sertraline HCl 50 MG DAILY 09/07 1301 AC 09/24 PO 1019 Trazodone HCl 200 MG AT BEDTIME 09/07 2200 AC 09/23 PO 2011 Results Last 48 Hrs of Labs/Mics: Laboratory Tests 09/24/16 0400: Anion Gap 10, Estimated GFR > 60, Glucose 70, Calcium 8.5, Phosphorus 4.1, Magnesium 1.6, Iron 19 L, TIBC 208 L, Ferritin 296.0 H, Total Bilirubin 0.3, AST 17, ALT 34, Albumin 2.3 L, Vitamin B12 561, Folate 6.3, TSH 10.800 H, Free T4 1.60, Total T3 0.96 L, CBC w Diff NO MAN DIFF REQ, RBC 3.04 L, MCV 90.9, MCH 29.1, RDW 17.3 H, MPV 7.9, Gran % 76.4 H, Lymphocytes % 14.5 L, Monocytes % 7.8, Eosinophils % 1.0, Basophils % 0.3, Absolute Granulocytes 10.1 H, Absolute Lymphocytes 1.9, Absolute Monocytes 1.0 H, Absolute Eosinophils 0.1, Absolute Basophils 0, PUBS MCHC 32.0 L 09/23/16 0430: Anion Gap 4 L, Estimated GFR > 60, BUN/Creatinine Ratio 17.5, CBC w Diff NO MAN DIFF REQ, RBC 2.78 L, MCV 91.9, MCH 29.4, RDW 16.9 H, MPV 7.7, Gran % 81.3 H, Lymphocytes % 11.5 L, Monocytes % 6.0, Eosinophils % 1.0, Basophils % 0.2, Absolute Granulocytes 10.2 H, Absolute Lymphocytes 1.4, Absolute Monocytes 0.8 H, Absolute Eosinophils 0.1, Absolute Basophils 0, PUBS MCHC 32.0 L 09/22/16 2345: Ur Random Creatinine 38.0, Ur Random Sodium 214 H, Ur Random Potassium 64.3, Fraction Sodium Excret 2.0 H Assessment/Plan Assessment/Plan 1. Hypoxemic respiratory failure, improved 2. Status post drainage of pericolic abscess and sigmoid colectomy 3. Episodes of bradycardia, improved Plan: * Lasix 40 mg IV given today. * Continue current cardiac medications. Continue telemetry? Yes
[2016-09-25] VITALS: BP 84/52
--- NOTE | 2016-09-25 00:44 | NUR ---
@0000 PT DROWSY BUT AROUSABLE, HR SB 50'S ON MONITOR, SBP MANUALLY 84/50, NOTIFIED MD TURNER EL. PER MD NO BOLUS AT THIS TIME, WILL RECHECK BP. @0030 REPEAT MANUAL BP 104/58 NOTIFIED.
[2016-09-25 00:48] VITALS: BP 104/58
--- NOTE | 2016-09-25 02:22 | NUR ---
PT URINE OUTPUT FOR LAST TWO HOURS 10ML/15ML. NOTIFIED MD PEREZ. PT RECEIVING IVF AT 50ML/HR.
[2016-09-25 04:44] LABS: ABSOLUTE BASOPHIL COUNT 0 /CUMM (0.0-0.2); ABSOLUTE EOSINOPHIL COUNT 0.2 /CUMM (0.0-0.7); ABSOLUTE GRANULOCYTE CT 10.1 /CUMM (1.4-6.5); ABSOLUTE LYMPH COUNT 1.7 /CUMM (1.2-3.4); BASOPHIL % 0.4 % (0.0-2.0); EOSINOPHIL % 1.2 % (0-5); GRANULOCYTE % 77.7 % (42.2-75.2); HEMATOCRIT 25.8 % (37-47); MEAN CORPUSCULAR HGB 29.4 PG (27.0-31.0); MEAN CORPUSCULAR HGB CONC 32.5 G/DL (33.0-37.0); MEAN CORPUSCULAR VOLUME 90.4 FL (81.0-99.0); MEAN PLATELET VOLUME 7.9 FL (7.4-10.4); PLATELET COUNT 601 /CUMM (130-400); RBC DISTRIBUTION WIDTH 17.2 % (11.5-14.5); RED BLOOD CELL CT 2.86 /CUMM (4.20-5.40)
--- NOTE | 2016-09-25 06:25 | NUR ---
URINE OUTPUT FOR 11-7 SHIFT 150ML OUTPUT, NOTIFIED MD SWANSON. NO FURTHER ORDERS GIVEN.
[2016-09-25 08:00] VITALS: BP 122/60
--- NOTE | 2016-09-25 08:18 | NUR ---
0600 rt paged patient on 60% hfnc desat to 85% hfnc increased to 75% o2 sat 96%
--- NOTE | 2016-09-25 09:14 | PN- Infect Dx ---
Subjective Subjective: Afebrile. She reports no complaints but appears frustrated. Objective Last 24 Hrs of Vital Signs/I&O Vital Signs Date Time Temp Pulse Resp B/P B/P Pulse O2 O2 Flow FiO2 Mean Ox Delivery Rate 09/25 0541 57 96 09/25 0400 94 BIPAP 60% 09/25 0234 53 92 09/25 0048 104/58 09/25 0024 54 95 09/25 0000 94 BIPAP 60% 09/25 0000 96.5 57 24 84/52 94 BIPAP 60% 09/24 2233 59 92 09/24 2000 94 Nasal 60% Cannula 09/24 1755 94 Nasal 70% Cannula 09/24 1746 71 20 130/67 09/24 1600 94 Nasal 70% Cannula 09/24 1600 98.8 67 24 130/70 94 Room Air 09/24 1200 95 Nasal 70% Cannula Intake & Output 09/25 1600 09/25 0800 09/25 0000 Intake Total 400 620 Output Total 175 830 Balance 225 -210 Intake, IV 400 410 Intake, Oral 0 210 Output, Stool 25 100 Output, Urine 150 730 Physical Exam Other Physical Findings: She is confused but in no acute distress on high flow oxygen Lungs crackles at the right base Heart regular rhythm with no murmur Abdomen is soft, nontender with positive bowel sounds; liquid stool in the colostomy; incision is healing Extremities no cyanosis, clubbing or edema; PICC in the right upper extremity with no inflammation at the site F[place] catheter remains in place Results Last 24 Hours of Lab Results: Laboratory Tests 09/25 0337 Chemistry Sodium (137 - 145 mmol/L) 143 Potassium (3.5 - 5.1 mmol/L) 3.4 L Chloride (98 - 107 mmol/L) 107 Carbon Dioxide (22 - 30 mmol/L) 31 H Anion Gap (5 - 16) 5 BUN (7 - 17 mg/dL) 6 L Creatinine (0.5 - 1.0 mg/dL) 0.5 Estimated GFR (>60 ml/min) > 60 Glucose (65 - 99 mg/dL) 73 Calcium (8.4 - 10.2 mg/dL) 8.3 L Phosphorus (2.5 - 4.5 mg/dL) 4.4 Magnesium (1.6 - 2.3 mg/dL) 1.6 Total Bilirubin (0.2 - 1.3 mg/dL) 0.4 AST (14 - 36 U/L) 18 ALT (9 - 52 U/L) 24 Albumin (3.5 - 5.0 g/dL) 2.1 L TSH (0.270 - 4.200 uIU/mL) 8.880 H Free T4 (0.78 - 2.44 ng/dL) 1.49 Hematology CBC w Diff NO MAN DIFF REQ WBC (4.8 - 10.8 /CUMM) 13.0 H RBC (4.20 - 5.40 /CUMM) 2.86 L Hgb (12.0 - 16.0 G/DL) 8.4 L Hct (37 - 47 %) 25.8 L MCV (81.0 - 99.0 FL) 90.4 MCH (27.0 - 31.0 PG) 29.4 RDW (11.5 - 14.5 %) 17.2 H Plt Count (130 - 400 /CUMM) 601 H MPV (7.4 - 10.4 FL) 7.9 Gran % (42.2 - 75.2 %) 77.7 H Lymphocytes % (20.5 - 51.1 %) 12.7 L Monocytes % (1.7 - 9.3 %) 8.0 Eosinophils % (0 - 5 %) 1.2 Basophils % (0.0 - 2.0 %) 0.4 Absolute Granulocytes (1.4 - 6.5 /CUMM) 10.1 H Absolute Lymphocytes (1.2 - 3.4 /CUMM) 1.7 Absolute Monocytes (0.10 - 0.60 /CUMM) 1.0 H Absolute Eosinophils (0.0 - 0.7 /CUMM) 0.2 Absolute Basophils (0.0 - 0.2 /CUMM) 0 PUBS MCHC (33.0 - 37.0 G/DL) 32.5 L Last 24 Hours of [place] Results: Urine culture September 22 negative Recent Imaging Studies: Chest x-ray September 24, personally reviewed, is stable with no change in the bilateral pleural effusions Assessment/Plan Impression: Stable with temperatures remaining normal and white blood cell count only mildly elevated off antibiotics after nearly 3 weeks of drainage of a purulent fluid collection now 30 days status post Granger's procedure for a perforated sigmoid colon. Her respiratory status remains tenuous, with an increase in her oxygen requirements overnight noted, possibly related to fluid overload, though she has diuresed over the last several days. Suggestion: 1. Further management of her fluid status per Cardiology 2. Continue to follow off antibiotics
--- NOTE | 2016-09-25 09:18 | PN- Resident CRCU ---
Subjective HPI/CRCU Issues: Pt is seen and examined at bedside. Does endorse mild right-sided abdominal pain around her incision area. She denies any chest pain, palpitation, increased shortness of breath, fever, chills, nausea, vomiting, any focal neurological deficit, confusion, or dysuria. vital signs stable, no acute overnight event reported by nursing staff or telemetry monitoring. Objective Vital Signs & I&O Last 8 Hrs of Vitals and I&O: Vital Signs Date Time Temp Pulse Resp B/P B/P Pulse O2 O2 Flow FiO2 Mean Ox Delivery Rate 09/25 0850 92 Nasal 75% Cannula 09/25 0800 98 Nasal 75% Cannula 09/25 0800 98.7 56 39 122/60 98 Nasal 75% Cannula 09/25 0541 57 96 09/25 0400 94 BIPAP 60% 09/25 0234 53 92 09/25 0048 104/58 09/25 0024 54 95 09/25 0000 94 BIPAP 60% 09/25 0000 96.5 57 24 84/52 94 BIPAP 60% 09/24 2233 59 92 09/24 2000 94 Nasal 60% Cannula 09/24 1755 94 Nasal 70% Cannula 09/24 1746 71 20 130/67 09/24 1600 94 Nasal 70% Cannula 09/24 1600 98.8 67 24 130/70 94 Room Air Intake & Output 09/25 1600 09/25 0800 09/25 0000 Intake Total 400 620 Output Total 175 830 Balance 225 -210 Intake, IV 400 410 Intake, Oral 0 210 Output, Stool 25 100 Output, Urine 150 730 Patient 64.183 kg Weight Weight Bed scale Measurement Method Intake & Output 09/25 1600 Intake Total Output Total Balance Patient 64.183 kg Weight Weight Bed scale Measurement Method Exam General Appearance: alert, awake, no apparent distress Other Physical Findings: Head: atraumatic, normal appearance, high flow nasal cannula in place and intact. Respiratory: normal breath sounds, no respiratory distress, diminished air entry over lung bases bilaterally Cardiovascular: regular rate/rhythm Gastrointestinal: normal bowel sounds, soft, non-tender, dressing intact at the right sided abdominal area with no noted obvious bleeding or purulent discharge compared to yesterday. Extremities: normal inspection, trace edema Cranial Nerves: normal speech, PERRL Weaning Parameters NIF: 32 Minute Volume: 11.3 Resp rate: 20 Vt: 558 Heart Rate: 80 Weaning Schedule Minute Volume: 8.4 Resp Rate: 23 Vt: 350 Heart Rate: 80 End Time: 1035 Minute Volume: 17.5 Resp Rate: 40 Vt: 435 Heart Rate: 95 Start Time: 1100 Minute Volume: 7.9 Resp Rate: 25 Vt: 388 Heart Rate: 86 End Time: 1235 Minute Volume: 8.8 Resp Rate: 37 Vt: 280 Heart Rate: 89 Current Medications: Current Medications Sig/Ry Start time Last Medication Dose Route Stop Time Status Admin Acetylcysteine 2 ML EVERY 4 HRS/AWAKE 09/23 1999 DC 09/25 INH 0837 Albuterol Sulfate 3 ML EVERY 4 HRS/AWAKE 09/01 2000 AC 09/25 INH 0836 Albuterol Sulfate 3 ML Q4H PRN 08/27 1000 AC 08/28 INH 1309 Dextrose/Sodium 1,000 ML ONCE ONE 09/24 09 DC 09/24 Chloride IV 09/25 0529 1022 Enoxaparin Sodium 40 MG DAILY 09/03 1000 AC 09/25 SC 0741 Furosemide 20 MG ONCE ONE 09/25 1215 DC 09/25 IV 09/25 1216 1208 Ibuprofen 600 MG ONCE ONE 09/24 1730 DC 09/24 PO 09/24 1731 1746 Lorazepam 2 MG Q3P PRN 09/21 0945 AC 09/23 IV 2147 Magnesium Oxide 400 MG ONE TIME ONE 09/25 0530 DC 09/25 PO 09/25 0531 0742 Magnesium Oxide 400 MG DAILY 09/12 1000 AC 09/24 PO 1019 Magnesium Sulfate 1 GM Q2H 09/25 0830 DC 09/25 Dextrose/Water 100 ML IV 09/25 1229 1025 Morphine Sulfate 2 MG Q3P PRN 09/15 0930 AC 09/25 IV 0627 Omeprazole 40 MG DAILY AC 09/25 0700 CAN PO Pantoprazole Sodium 40 MG DAILY 09/25 1000 AC 09/25 IV 0741 Potassium Chloride 40 MEQ ONCE ONE 09/25 0530 CAN PO 09/25 0531 Potassium Chloride 20 MEQ ONCE ONE 09/25 0530 DC 09/25 PO 09/25 0531 0741 Potassium Chloride 20 MEQ DAILY 09/12 1000 AC 09/25 PO 0742 Propranolol HCl 10 MG 1800 09/21 1800 AC 09/24 PO 1746 Sertraline HCl 50 MG DAILY 09/07 1301 AC 09/25 PO 0741 Sodium Chloride 2 SPRAY Q4P PRN 09/24 2130 AC ANIL Trazodone HCl 200 MG AT BEDTIME 09/07 2200 AC 09/24 PO 2126 Impression/Plan Impression/Problem List Impression: Ms. Camacho is a 60 year old female with PMH anxiety, depression, COPD , prior episode of severe clostridium difficile infection in 2016, tobacco abuse and gastritis who presented to the [facility] ED after one week of altered mental status, decreased oral intake and possible withdrawl symptoms as her clonazepam was being titrated off per doctor instructions. She was found to be hypotensive, febrile and altered while in the [facility] ED. Neurological Metabolic encephalopathy on admission, likely secondary to severe sepsis from sigmoid perforation/peritonitis. * Alert and follow commands * Strength 5/ X4 * Psych meds including trazodone, propranolol and sertraline daily * CT head negative for acute intracranial pathology Plan 1.NTD Cardiovascular Sinus tachycardia with T wave changes on admission(resolved).ACS was excluded. Echo showed normal global LV function without wall motion abnormalities and normal pulm artery systolic pressure Over last 24 hour * HR: 56-73 * BP: ~ 120/70 Medications * Propranolol 10 mg at bedtime Plan 1.continue monitor vitals Respiratory Patient was intubated for Ho's procedure, patient remained intubated until 09/15/16. * thoracentesis on 09/02/16 and again on 09/13/16. * X-ray this a.m. did not show any change when compared to the previous one * Now saturating lower 90s on 70% high flow nasal cannula (increased FiO2 in the past 24 hours noted) * TRC/Nebs * Aspiration precautions(thickened fluid) * BP in the morning around 110s we'll therefore give Lasix 20 mg once instead of 40 mg. Plan 1. Net fluid positive of about 1 L, will give Lasix 20 mg. 1.TRC/Nebs 2.Aspiration precautions 3.Will taper [id number]. Renal Had SIERRA on presentation Likely prerenal in the setting of severe sepsis. * Continues to have an overall positive balance in the setting of decreased urine output. Will continue to montior with strict ins/outs, furosemide 20 mg IV. * Today Cr 0.5 and BUN 6 Plan 1.Continue monitoring renal function Fluids, Electrolytes, and Nutrition (FEN) * Mg 1.6 , K+ 3.4, will replenish potassium and mag. * Pending swallowing evaluation this morning * Albumin is 2.4 and prealbumin is 8.9 Plan 1.Repeat chemistry daily Infectious Diseases Peritonitis from perforated sigmoid colon with abscess formation, POD #30 S/P Harmann's procedure with Dr. Armendariz. Blood cultures showed no growth, lower respiratory culture grew pseudomonas (resistent to zosyn) and culture from OR grew E.Coli, alpha/beta strep and brandon. Finished antibiotic course. Remains afebrile with no acute worsening of leukocytosis. Plan 1 continue to monitor off antibiotics. Hematology Patient given total of 5 U PRBC since admission. Initial had thrombocytopenia likely 2/2 coagulopathly from sepsis, 4Ts score placed patient at low risk for HIT (<5%) so SC lovenox was Resumed on 09/02. H/H stable Plan 1.Follow up CBC daily, monitor for bleeding Problem List: 1. Status post Ho's procedure 2. Perforated viscus 3. Severe sepsis Pain Ratin Pain Location: right abdomen area Tomorrow's Labs & Rationales: ICU BUNDLE Plan DVT/Prophylaxis: mechanical, pharmacological Code Status: Full Code
--- NOTE | 2016-09-25 09:24 | PN- CRCU ---
Subjective HPI/Critical Care Issues: pt seen and examined 75% fio2 wbc 13 cxr with evidence of congestion Objective Current Medications: Current Medications Sig/Ry Start time Last Medication Dose Route Stop Time Status Admin Acetylcysteine 2 ML EVERY 4 HRS/AWAKE 09/23 1999 AC 09/25 INH 0837 Albuterol Sulfate 3 ML EVERY 4 HRS/AWAKE 09/02 1999 AC 09/25 INH 0836 Albuterol Sulfate 3 ML Q4H PRN 08/27 1000 AC 08/28 INH 1309 Dextrose/Sodium 1,000 ML ONCE ONE 09/24 0930 DC 09/24 Chloride IV 09/25 0529 1022 Enoxaparin Sodium 40 MG DAILY 09/03 1000 AC 09/25 SC 0741 Furosemide 40 MG ONCE ONE 09/24 1230 DC 09/24 IV 09/24 1231 1303 Ibuprofen 600 MG ONCE ONE 09/24 1730 DC 09/24 PO 09/24 1731 1746 Lorazepam 2 MG Q3P PRN 09/21 0945 AC 09/23 IV 2147 Magnesium Oxide 400 MG ONE TIME ONE 09/25 0530 DC 09/25 PO 09/25 0531 0742 Magnesium Oxide 400 MG DAILY 09/12 1000 AC 09/24 PO 1019 Magnesium Sulfate 1 GM Q2H 09/25 0830 AC Dextrose/Water 100 ML IV 09/25 1229 Morphine Sulfate 2 MG Q3P PRN 09/15 0930 AC 09/25 IV 0627 Omeprazole 40 MG DAILY AC 09/25 0700 CAN PO Pantoprazole Sodium 40 MG DAILY 09/25 1000 AC 09/25 IV 0741 Pantoprazole Sodium 40 MG DAILY 08/27 1000 DC 09/23 IV 0939 Potassium Chloride 40 MEQ ONCE ONE 09/25 0530 CAN PO 09/25 0531 Potassium Chloride 20 MEQ ONCE ONE 09/25 0530 DC 09/25 PO 09/25 0531 0741 Potassium Chloride 40 MEQ Q13H 09/19 0900 DC 09/24 Dextrose/Sodium 1,000 ML IV 0554 Chloride Potassium Chloride 20 MEQ DAILY 09/12 1000 AC 09/25 PO 0742 Propranolol HCl 10 MG 1800 09/21 1800 AC 09/24 PO 1746 Sertraline HCl 50 MG DAILY 09/07 1301 AC 09/25 PO 0741 Sodium Chloride 2 SPRAY Q4P PRN 09/24 2130 AC ANIL Trazodone HCl 200 MG AT BEDTIME 09/07 2200 AC 06/17 PO 2127 Vital Signs & I&O Last 24 Hrs of Vitals and I&O: Vital Signs Date Time Temp Pulse Resp B/P B/P Pulse O2 O2 Flow FiO2 Mean Ox Delivery Rate 09/25 0850 92 Nasal 75% Cannula 09/25 0541 57 96 09/25 0400 94 BIPAP 60% 09/25 0234 53 92 09/25 0048 104/58 09/25 0024 54 95 09/25 0000 94 BIPAP 60% 09/25 0000 96.5 57 24 84/52 94 BIPAP 60% 09/24 2233 59 92 09/24 2000 94 Nasal 60% Cannula 09/24 1755 94 Nasal 70% Cannula 09/24 1746 71 20 130/67 09/24 1600 94 Nasal 70% Cannula 09/24 1600 98.8 67 24 130/70 94 Room Air 09/24 1200 95 Nasal 70% Cannula Intake & Output 09/25 1600 09/25 0800 09/25 0000 Intake Total 400 620 Output Total 175 830 Balance 225 -210 Intake, IV 400 410 Intake, Oral 0 210 Output, Stool 25 100 Output, Urine 150 730 Exam Other Physical Findings: gen awake heent ncat cvs s1, s2 lungs reduced air entry, rare rhonchi abd soft, bs+ ext trace edema Results Last 24 Hrs of Lab Results: Laboratory Tests 09/25/16 0337: Anion Gap 5, Estimated GFR > 60, Glucose 73, Calcium 8.3 L, Phosphorus 4.4, Magnesium 1.6, Total Bilirubin 0.4, AST 18, ALT 24, Albumin 2.1 L, TSH 8.880 H , Free T4 1.49, CBC w Diff NO MAN DIFF REQ, RBC 2.86 L, MCV 90.4, MCH 29.4, RDW 17.2 H, MPV 7.9, Gran % 77.7 H, Lymphocytes % 12.7 L, Monocytes % 8.0, Eosinophils % 1.2, Basophils % 0.4, Absolute Granulocytes 10.1 H, Absolute Lymphocytes 1.7, Absolute Monocytes 1.0 H, Absolute Eosinophils 0.2, Absolute Basophils 0, PUBS MCHC 32.5 L Impression/Plan Impression/Plan Impression/Plan: Impression 60 year old woman * hypoxemic respiratory failure, exutbated * s/p pericolic abscess s/p drainage and sigmoid colectomy with end colostomy Plan Respiratory -cxr tomorrow -negative fluid balance, maintain 1 to 1.5 liter negative -TRC/Nebs -cont high flow, with plan to reduce fio2 as tolerated -spo2 goal >88% ID -f/u ID recommendations -wbc stable, 13 today, all drains removed -monitoring off abx with consultation from ID -dc mucomyst CVS -monitor hemodynamics Heme -monitor cbc, coags -anemia likely chronic in nature, no acute blood loss, check anemia panel including iron studies, b12, folate Metabolic -negative fluid balance -monitor electrolytes -goal k 4, mag 2, phos 4 Alimentary -aspiration precautions -diet as tolerated Neuro -anxiolysis -psychiatry previously followed, re-evaluation given inconsistent response to psychiatric medications DVT prophylaxis at all times - lovenox TTS 35 min Remain in ICU until reduction of fio2 Code Status: Full Code
--- NOTE | 2016-09-25 11:27 | RADIOLOGY REPORT ---
EXAMINATION: XR PORTABLE CHEST CLINICAL INFORMATION: Pleural effusion. COMPARISON: Recent priors. TECHNIQUE: Portable AP 75 degrees erect view of the chest was obtained. FINDINGS: The right arm PICC remains in stable position with the tip reaching the level of the mid SVC. There is stable appearance of layering bilateral pleural effusions with bibasilar airspace opacity consistent with pneumonia and/or atelectasis. IMPRESSION: Stable appearance of bibasilar airspace opacity with layering pleural effusions.
--- NOTE | 2016-09-25 13:08 | NUR ---
LEFT ANTERIOR CHEST DSG(OLD CHEST TUBE SITE) RIGHT UPPER QUAD DSG ( OLD PERC. DRAIN SITE) BOTH SITES ARE SCABBED OVER REMOVED BY DR. Roxie GONZALEZ
--- NOTE | 2016-09-25 13:57 | NUR ---
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 GONZALEZ REQUESTED VITAMINS PER SKIN PROTOCOL TO BE ORDERED
--- NOTE | 2016-09-25 14:31 | PN- Cardiology ---
Subjective Subjective: Patient seen his to complain of shortness of breath. No chest pain. No palpitations. No diaphoresis. Objective Vital Signs and I&Os Vital Signs Date Time Temp Pulse Resp B/P B/P Pulse O2 O2 Flow FiO2 Mean Ox Delivery Rate 09/25 1200 99 Nasal 75% Cannula 09/25 0850 92 Nasal 75% Cannula 09/25 0800 98 Nasal 75% Cannula 09/25 0800 98.7 56 39 122/60 98 Nasal 75% Cannula 09/25 0541 57 96 09/25 0400 94 BIPAP 60% 09/25 0234 53 92 09/25 0048 104/58 09/25 0024 54 95 09/25 0000 94 BIPAP 60% 09/25 0000 96.5 57 24 84/52 94 BIPAP 60% 09/24 2233 59 92 09/25 1999 94 Nasal 60% Cannula 09/24 1755 94 Nasal 70% Cannula 09/24 1746 71 20 130/67 09/24 1600 94 Nasal 70% Cannula 09/24 1600 98.8 67 24 130/70 94 Room Air Intake & Output 09/25 1600 09/25 0800 09/25 0000 09/24 1600 09/24 0800 09/24 0000 Intake Total 400 620 584 368 518 Output Total 860 072 3661 93 725 Balance 225 -210 -1106 275 -207 Intake, IV 400 410 424 368 428 Intake, Oral 0 210 160 90 Output, Stool 25 100 90 0 75 Output, Urine 142 748 0717 93 650 Patient 142 lb 141 lb Weight Weight Bed scale Bed scale Measurement Method Physical Exam: Gen: NAD HEENT: normal Lungs: Decreased breath sounds, normal respiratory effort Heart: RRR, S1, S2, no murmurs Abdomen: Soft, nontender, no masses Extremities: No clubbing, cyanosis, or edema. Neuro: Alert and oriented x 3, cranial nerves intact Current Medications: Current Medications Sig/Ry Start time Last Medication Dose Route Stop Time Status Admin Acetylcysteine 2 ML EVERY 4 HRS/AWAKE 09/23 1999 DC 09/25 INH 0837 Albuterol Sulfate 3 ML EVERY 4 HRS/AWAKE 09/02 1999 AC 09/25 INH 1323 Albuterol Sulfate 3 ML Q4H PRN 08/27 1000 AC 08/28 INH 1309 Dextrose/Sodium 1,000 ML ONCE ONE 09/24 929 DC 09/24 Chloride IV 09/25 0529 1022 Enoxaparin Sodium 40 MG DAILY 09/03 1000 AC 09/25 SC 0741 Furosemide 20 MG ONCE ONE 09/25 1215 DC 09/25 IV 09/25 1216 1208 Ibuprofen 600 MG ONCE ONE 09/24 1730 DC 09/24 PO 09/24 1731 1746 Lorazepam 2 MG Q3P PRN 09/21 0945 AC 09/23 IV 2147 Magnesium Oxide 400 MG ONE TIME ONE 09/25 0530 DC 09/25 PO 09/25 0531 0742 Magnesium Oxide 400 MG DAILY 09/12 1000 AC 09/24 PO 1019 Magnesium Sulfate 1 GM Q2H 09/25 0830 DC 09/25 Dextrose/Water 100 ML IV 09/25 1229 1025 Morphine Sulfate 2 MG Q3P PRN 09/15 0930 AC 09/25 IV 0627 Omeprazole 40 MG DAILY AC 09/25 0700 CAN PO Pantoprazole Sodium 40 MG DAILY 09/25 1000 AC 09/25 IV 0741 Potassium Chloride 40 MEQ ONCE ONE 09/25 0530 CAN PO 09/25 0531 Potassium Chloride 20 MEQ ONCE ONE 09/25 0530 DC 09/25 PO 09/25 0531 0741 Potassium Chloride 20 MEQ DAILY 09/12 1000 AC 09/25 PO 0742 Propranolol HCl 10 MG 1800 09/21 1800 AC 09/24 PO 1746 Sertraline HCl 50 MG DAILY 09/07 1301 AC 09/25 PO 0741 Sodium Chloride 2 SPRAY Q4P PRN 09/24 2130 AC ANIL Trazodone HCl 200 MG AT BEDTIME 09/07 2200 AC 09/24 PO 2127 Results Last 48 Hrs of Labs/Mics: Laboratory Tests 09/25/16 0337: Anion Gap 5, Estimated GFR > 60, Glucose 73, Calcium 8.3 L, Phosphorus 4.4, Magnesium 1.6, Total Bilirubin 0.4, AST 18, ALT 24, Albumin 2.1 L, TSH 8.880 H , Free T4 1.49, CBC w Diff NO MAN DIFF REQ, RBC 2.86 L, MCV 90.4, MCH 29.4, RDW 17.2 H, MPV 7.9, Gran % 77.7 H, Lymphocytes % 12.7 L, Monocytes % 8.0, Eosinophils % 1.2, Basophils % 0.4, Absolute Granulocytes 10.1 H, Absolute Lymphocytes 1.7, Absolute Monocytes 1.0 H, Absolute Eosinophils 0.2, Absolute Basophils 0, PUBS MCHC 32.5 L 09/24/16 0400: Anion Gap 10, Estimated GFR > 60, Glucose 70, Calcium 8.5, Phosphorus 4.1, Magnesium 1.6, Iron 19 L, TIBC 208 L, Ferritin 296.0 H, Total Bilirubin 0.3, AST 17, ALT 34, Albumin 2.3 L, Vitamin B12 561, Folate 6.3, TSH 10.800 H, Free T4 1.60, Total T3 0.96 L, CBC w Diff NO MAN DIFF REQ, RBC 3.04 L, MCV 90.9, MCH 29.1, RDW 17.3 H, MPV 7.9, Gran % 76.4 H, Lymphocytes % 14.5 L, Monocytes % 7.8, Eosinophils % 1.0, Basophils % 0.3, Absolute Granulocytes 10.1 H, Absolute Lymphocytes 1.9, Absolute Monocytes 1.0 H, Absolute Eosinophils 0.1, Absolute Basophils 0, PUBS MCHC 32.0 L Assessment/Plan Assessment/Plan 1. Hypoxemic respiratory failure, improved 2. Status post drainage of pericolic abscess and sigmoid colectomy 3. Episodes of bradycardia, improved Plan: * Continue IV Lasix as needed to keep fluid balance negative * Continue current cardiac medications. Continue telemetry? Yes
[2016-09-25 16:00] VITALS: BP 104/58
[2016-09-26] VITALS: BP 118/60
--- NOTE | 2016-09-26 00:45 | NUR ---
PT SLEEPY BUT EASILY AROUSABLE. SB 50"S MANUAL BP 118/60. SITTER AT BEDSIDE TO PREVENT HER FROM PULLING OFF BIPAP MASK. SATURATION 98% ON 60% BIPAP, LUNGS SOUND CLEAR. ABDOMEN TENDER, INCISION LINE INTACT. SMALL OPEN AREA UNDER THE UMBILICUS, DRESSING DRY AND INTACT. COLOSTOMY INTACT. TOBAR IN PLACE [place] UO NOTED.
--- NOTE | 2016-09-26 02:30 | NUR ---
SATURATION DOWN TO 87 ON 80% BIPAP. FIO2 INCREASED TO 100% BY RT. SATURATION 93-94%. LUNGS SOUND CLEAR. DENIES BEING SOB.
[2016-09-26 04:55] LABS: ABSOLUTE BASOPHIL COUNT 0.1 /CUMM (0.0-0.2); ABSOLUTE EOSINOPHIL COUNT 0.1 /CUMM (0.0-0.7); ABSOLUTE LYMPH COUNT 1.5 /CUMM (1.2-3.4); ABSOLUTE MONOCYTE COUNT 0.9 /CUMM (0.10-0.60); BASOPHIL % 0.4 % (0.0-2.0); EOSINOPHIL % 0.4 % (0-5); GRANULOCYTE % 83.6 % (42.2-75.2); HEMATOCRIT 25.6 % (37-47); MEAN CORPUSCULAR HGB 29.3 PG (27.0-31.0); MEAN CORPUSCULAR HGB CONC 32.4 G/DL (33.0-37.0); MEAN CORPUSCULAR VOLUME 90.6 FL (81.0-99.0); MEAN PLATELET VOLUME 7.9 FL (7.4-10.4); PLATELET COUNT 585 /CUMM (130-400); RBC DISTRIBUTION WIDTH 17.3 % (11.5-14.5); RED BLOOD CELL CT 2.82 /CUMM (4.20-5.40); WHITE BLOOD CELL COUNT 15.5 /CUMM (4.8-10.8)
--- NOTE | 2016-09-26 07:53 | PN- CRCU ---
Subjective HPI/Critical Care Issues: pt seen and examined down to 50% fio2 doing better comfortable Objective Current Medications: Current Medications Sig/Ry Start time Last Medication Dose Route Stop Time Status Admin Acetylcysteine 2 ML EVERY 4 HRS/AWAKE 09/23 1999 DC 09/25 INH 0837 Albuterol Sulfate 3 ML EVERY 4 HRS/AWAKE 09/01 2000 AC 09/26 INH 0731 Albuterol Sulfate 3 ML Q4H PRN 08/27 1000 AC 08/28 INH 1309 Enoxaparin Sodium 40 MG DAILY 09/03 1000 AC 09/25 SC 0741 Furosemide 20 MG ONCE ONE 09/25 1215 DC 09/25 IV 09/25 1216 1208 Guaifenesin 600 MG Q12 09/25 2200 AC 09/25 PO 2218 Lorazepam 2 MG Q3P PRN 09/21 0945 AC 09/23 IV 2147 Magnesium Oxide 400 MG DAILY 09/12 1000 AC 09/24 PO 1019 Magnesium Sulfate 1 GM Q2H 09/25 0830 DC 09/25 Dextrose/Water 100 ML IV 09/25 1229 1025 Morphine Sulfate 2 MG Q3P PRN 09/15 0930 AC 09/25 IV 2141 Pantoprazole Sodium 40 MG DAILY 09/25 1000 AC 09/25 IV 0741 Potassium Chloride 20 MEQ ONCE ONE 09/26 0715 DC PO 09/26 0716 Potassium Chloride 20 MEQ DAILY 09/12 1000 AC 09/25 PO 0742 Propranolol HCl 10 MG 1800 09/21 1800 AC 09/25 PO 1847 Sertraline HCl 50 MG DAILY 09/07 1301 AC 09/25 PO 0741 Sodium Chloride 2 SPRAY Q4P PRN 09/24 2130 AC ANIL Trazodone HCl 200 MG AT BEDTIME 09/07 2200 AC 09/25 PO 2218 Vital Signs & I&O Last 24 Hrs of Vitals and I&O: Vital Signs Date Time Temp Pulse Resp B/P B/P Pulse O2 O2 Flow FiO2 Mean Ox Delivery Rate 09/26 0739 96 Nasal 50% Cannula 09/26 0738 59 97 09/26 0603 57 89 09/26 0526 57 90 09/26 0400 93 BIPAP 100% 09/26 0300 53 87 09/26 0029 58 98 09/26 0000 98 BIPAP 60% 09/26 0000 97.6 58 22 118/60 98 Nasal 60% Cannula 09/25 2244 58 91 06/18 2000 94 Nasal 50% Cannula 09/25 1847 61 119/63 09/25 1659 96 Nasal 55% Cannula 09/25 1600 98 Nasal 60% Cannula 09/25 1600 98.2 57 21 104/58 98 Nasal 60% Cannula 09/25 1200 99 Nasal 75% Cannula 09/25 0850 92 Nasal 75% Cannula 09/25 0800 98 Nasal 75% Cannula 09/25 0800 98.7 56 39 122/60 98 Nasal 75% Cannula Intake & Output 09/26 0800 09/26 0000 09/25 1600 Intake Total 200 240 792 Output Total 180 270 950 Balance 20 -30 -158 Intake, IV 252 Intake, Oral 200 240 540 Output, Stool 100 Output, Urine 180 270 850 Patient 142 lb Weight Weight Bed scale Measurement Method Exam Other Physical Findings: gen awake heent ncat cvs s1, s2 lungs reduced air entry, rare rhonchi abd soft, bs+ ext trace edema Results Last 24 Hrs of Lab Results: Laboratory Tests 09/26/16 0349: Anion Gap 8, Estimated GFR > 60, Glucose 75, Calcium 8.5, Phosphorus 4.7 H, Magnesium 1.9, Total Bilirubin 0.5, AST 16, ALT 37, Albumin 2.2 L, CBC w Diff NO MAN DIFF REQ, RBC 2.82 L, MCV 90.6, MCH 29.3, RDW 17.3 H, MPV 7.9, Gran % 83.6 H, Lymphocytes % 9.7 L, Monocytes % 5.9, Eosinophils % 0.4, Basophils % 0.4, Absolute Granulocytes 13.0 H, Absolute Lymphocytes 1.5, Absolute Monocytes 0.9 H, Absolute Eosinophils 0.1, Absolute Basophils 0.1, PUBS MCHC 32.4 L Impression/Plan Impression/Plan Impression/Plan: Impression 60 year old woman * hypoxemic respiratory failure, exutbated * s/p pericolic abscess s/p drainage and sigmoid colectomy with end colostomy Plan Respiratory -negative fluid balance, maintain 1 to 1.5 liter negative -TRC/Nebs -cont high flow, with plan to reduce fio2 as tolerated -spo2 goal >88% ID -f/u ID recommendations -wbc stable -monitoring off abx with consultation from ID -dc mucomyst CVS -monitor hemodynamics Heme -monitor cbc, coags -anemia likely chronic in nature, no acute blood loss, check anemia panel including iron studies, b12, folate Metabolic -negative fluid balance -monitor electrolytes -goal k 4, mag 2, phos 4 Alimentary -aspiration precautions -diet as tolerated Neuro -anxiolysis -psychiatry previously followed, re-evaluation given inconsistent response to psychiatric medications DVT prophylaxis at all times - lovenox TTS 35 min If doing well can DG 09/27 Remain in ICU until reduction of fio2 Code Status: Full Code
[2016-09-26 08:00] VITALS: BP 98/62
--- NOTE | 2016-09-26 08:09 | PN- Resident CRCU ---
Subjective HPI/CRCU Issues: Afebrile, hemodynamically stable, and saturating well on 50% high flow NC. Patient reports feeling anxious and mildly shortness breath this morning. She denies any other current active complaints. Objective Vital Signs & I&O Last 8 Hrs of Vitals and I&O: Vital Signs Date Time Temp Pulse Resp B/P B/P Pulse O2 O2 Flow FiO2 Mean Ox Delivery Rate 09/26 0739 96 Nasal 50% Cannula 09/26 0738 59 97 09/26 0603 57 89 09/26 0526 57 90 09/26 0400 93 BIPAP 100% 09/26 0300 53 87 09/26 0029 58 98 09/26 0000 98 BIPAP 60% 09/26 0000 97.6 58 22 118/60 98 Nasal 60% Cannula 09/25 2244 58 91 09/26 1999 94 Nasal 50% Cannula 09/25 1847 61 119/63 09/25 1659 96 Nasal 55% Cannula 09/25 1600 98 Nasal 60% Cannula 09/25 1600 98.2 57 21 104/58 98 Nasal 60% Cannula 09/25 1200 99 Nasal 75% Cannula 09/25 0850 92 Nasal 75% Cannula Intake & Output 09/26 1600 09/26 0800 09/26 0000 Intake Total 200 240 Output Total 180 270 Balance 20 -30 Intake, Oral 200 240 Output, Urine 180 270 Exam General Appearance: no apparent distress, alert, awake Head: atraumatic, normal appearance Respiratory: normal breath sounds, chest non-tender, no respiratory distress, decrease Air-entry over lung base B/L Cardiovascular: regular rate/rhythm Gastrointestinal: soft, non-tender Extremities: trace edema Weaning Parameters NIF: 32 Minute Volume: 11.3 Resp rate: 20 Vt: 558 Heart Rate: 80 Weaning Schedule Minute Volume: 8.4 Resp Rate: 23 Vt: 350 Heart Rate: 80 End Time: 1035 Minute Volume: 17.5 Resp Rate: 40 Vt: 435 Heart Rate: 95 Start Time: 1100 Minute Volume: 7.9 Resp Rate: 25 Vt: 388 Heart Rate: 86 End Time: 1235 Minute Volume: 8.8 Resp Rate: 37 Vt: 280 Heart Rate: 89 Current Medications: Current Medications Sig/Ry Start time Last Medication Dose Route Stop Time Status Admin Acetylcysteine 2 ML EVERY 4 HRS/AWAKE 09/23 1999 DC 09/25 INH 0837 Albuterol Sulfate 3 ML EVERY 4 HRS/AWAKE 09/02 1999 AC 09/26 INH 0731 Albuterol Sulfate 3 ML Q4H PRN 08/27 1000 AC 08/28 INH 1309 Enoxaparin Sodium 40 MG DAILY 09/03 1000 AC 09/25 SC 0741 Furosemide 20 MG ONCE ONE 09/25 1215 DC 09/25 IV 09/25 1216 1208 Guaifenesin 600 MG Q12 09/25 2200 AC 09/25 PO 2218 Lorazepam 1 MG Q3P PRN 09/26 0845 AC IV Lorazepam 2 MG Q3P PRN 09/21 0945 DC 09/23 IV 2147 Magnesium Oxide 400 MG DAILY 09/12 1000 AC 09/24 PO 1019 Magnesium Sulfate 1 GM ONCE ONE 09/26 0800 AC Dextrose/Water 100 ML IV 09/26 1159 Magnesium Sulfate 1 GM Q2H 09/25 0830 DC 09/25 Dextrose/Water 100 ML IV 09/25 1229 1025 Morphine Sulfate 2 MG Q3P PRN 09/15 0930 AC 09/25 IV 2141 Pantoprazole Sodium 40 MG DAILY 09/25 1000 AC 09/25 IV 0741 Potassium Chloride 20 MEQ ONCE ONE 09/26 0800 DC PO 09/26 0801 Potassium Chloride 20 MEQ ONCE ONE 09/26 0715 DC PO 09/26 0716 Potassium Chloride 20 MEQ DAILY 09/12 1000 AC 09/25 PO 0742 Propranolol HCl 10 MG 1800 09/21 1800 AC 09/25 PO 1847 Sertraline HCl 50 MG DAILY 09/07 1301 AC 09/25 PO 0741 Sodium Chloride 2 SPRAY Q4P PRN 09/24 2130 AC ANIL Trazodone HCl 200 MG AT BEDTIME 09/07 2200 AC 09/25 PO 2218 Impression/Plan Impression/Problem List Impression: Ms. Camacho is a 60 year old female with PMH anxiety, depression, COPD , prior episode of severe clostridium difficile infection in 2016, tobacco abuse and gastritis who presented to the [facility] after one week of altered mental status, decreased oral intake. She was found to be hypotensive, febrile and altered while at [facility]. she was diagnosed with peritonitis 2/2 perforated sigmoid colon with abscess formation, S/P Harmann's procedure with Dr. Armendariz. Lower respiratory culture grew pseudomonas (resistent to zosyn) and culture from OR grew E.Coli, alpha/beta strep and brandon. She was diagnosed with hospital- acquired pneumonia and was placed on IV fluconazole and IV meropenem. Now patient is off Abx. Neurological * AMS on admission most likely 2/2 severe sepsis from sigmoid perforation/ peritonitis. * Today patient is awake, alert, and oriented X3 and reports mild anxiety * Strength 5/5 X4 * Psych meds including trazodone, propranolol, sertraline daily, and Ativan 1mg PRN Cardiovascular * Sinus tachycardia with T wave changes on admission(resolved). * ACS was excluded and Echo did implement any pathology. * Continue propranolol 10 mg at bedtime * We will follow cardiology recommendation Respiratory * Patient was intubated for Ho's procedure, patient remained intubated until 09/15/16. * thoracentesis on 09/02/16 and again on 09/13/16. * X-ray this a.m. did not show any change when compared to the previous one * Now saturating lower 90s on 50% high flow nasal cannula * TRC/Nebs * Aspiration precautions(thickened fluid) Renal * Had SIERRA on presentation Likely prerenal in the setting of severe sepsis. Kidney function is back to normal after IV hydration. * Patient overall have a positive balance * Yesterday had about 500CC negative balance * We'll Continue strict I/Os * We will keep 1-1.5 negative balance * Will receive 40 mg IV Lasix Fluids, Electrolytes, and Nutrition (FEN) * We'll replete potassium and magnesium to keep up to goal * we'll Continue ground and nectar diet. Infectious Diseases * During this admission received IV meropenem and IV fluconazole as a treatment for peritonitis with or culture growing Escherichia coli and fungal infection. * During this admission same antibiotic mentioned above used to treat questionable aspiration pneumonia * This morning she is afebrile * WBCs: 15.5 up from 13 * No source of infection can be identified, we will repeat CBC daily. Hematology * Had total of 4 U PRBC since admission. * Stable H&H * Thrombocytosis improved today to 585 * Normocytic anemia with Serum iron 19(L), TIBC 208(L), ferritin 296(H). This point towards early stage anemia of chronic disease. B12 and folic acid within normal limits Endocrinology * TSH was 10 2 days ago down to 8.8 yesterday, within normal free T4 and low total T3 * We will repeat TFT in 2 days if stll high, we will consult endocrinology FULL CODE DVT prophylaxis: ALPS + SC lovenox Ulcer prophylaxis: Pantoprazole Problem List: 1. Status post Ho's procedure Pain Ratin Tomorrow's Labs & Rationales: CBC and ICU bundle Plan DVT/Prophylaxis: mechanical, pharmacological Code Status: Full Code
--- NOTE | 2016-09-26 10:02 | PN- Infect Dx ---
Subjective Subjective: Afebrile without complaints Objective Last 24 Hrs of Vital Signs/I&O Vital Signs Date Time Temp Pulse Resp B/P B/P Pulse O2 O2 Flow FiO2 Mean Ox Delivery Rate 09/26 0739 96 Nasal 50% Cannula 09/26 0738 59 97 09/26 0603 57 89 09/26 0526 57 90 09/26 0400 93 BIPAP 100% 09/26 0300 53 87 09/26 0029 58 98 09/26 0000 98 BIPAP 60% 09/26 0000 97.6 58 22 118/60 98 Nasal 60% Cannula 09/25 2244 58 91 09/25 2000 94 Nasal 50% Cannula 09/25 1847 61 119/63 09/25 1659 96 Nasal 55% Cannula 09/25 1600 98 Nasal 60% Cannula 09/25 1600 98.2 57 21 104/58 98 Nasal 60% Cannula 09/25 1200 99 Nasal 75% Cannula Intake & Output 09/26 1600 09/26 0800 09/26 0000 Intake Total 200 240 Output Total 180 270 Balance 20 -30 Intake, Oral 200 240 Output, Urine 180 270 Physical Exam Other Physical Findings: She is awake and alert on the high flow oxygen in no acute distress Lungs decreased breath sounds at the right base Heart regular rhythm with no murmur Abdomen is soft, nontender with positive bowel sounds; incision healing with no surrounding erythema; liquid stool in the colostomy Extremities no cyanosis, clubbing or edema; PICC in the right upper extremity with no inflammation at the site Fulton catheter remains in place Results Last 24 Hours of Lab Results: Laboratory Tests 09/26 0349 Chemistry Sodium (137 - 145 mmol/L) 144 Potassium (3.5 - 5.1 mmol/L) 3.5 Chloride (98 - 107 mmol/L) 105 Carbon Dioxide (22 - 30 mmol/L) 31 H Anion Gap (5 - 16) 8 BUN (7 - 17 mg/dL) 8 Creatinine (0.5 - 1.0 mg/dL) 0.5 Estimated GFR (>60 ml/min) > 60 Glucose (65 - 99 mg/dL) 75 Calcium (8.4 - 10.2 mg/dL) 8.5 Phosphorus (2.5 - 4.5 mg/dL) 4.7 H Magnesium (1.6 - 2.3 mg/dL) 1.9 Total Bilirubin (0.2 - 1.3 mg/dL) 0.5 AST (14 - 36 U/L) 16 ALT (9 - 52 U/L) 37 Albumin (3.5 - 5.0 g/dL) 2.2 L Hematology CBC w Diff NO MAN DIFF REQ WBC (4.8 - 10.8 /CUMM) 15.5 H RBC (4.20 - 5.40 /CUMM) 2.82 L Hgb (12.0 - 16.0 G/DL) 8.3 L Hct (37 - 47 %) 25.6 L MCV (81.0 - 99.0 FL) 90.6 MCH (27.0 - 31.0 PG) 29.3 RDW (11.5 - 14.5 %) 17.3 H Plt Count (130 - 400 /CUMM) 585 H MPV (7.4 - 10.4 FL) 7.9 Gran % (42.2 - 75.2 %) 83.6 H Lymphocytes % (20.5 - 51.1 %) 9.7 L Monocytes % (1.7 - 9.3 %) 5.9 Eosinophils % (0 - 5 %) 0.4 Basophils % (0.0 - 2.0 %) 0.4 Absolute Granulocytes (1.4 - 6.5 /CUMM) 13.0 H Absolute Lymphocytes (1.2 - 3.4 /CUMM) 1.5 Absolute Monocytes (0.10 - 0.60 /CUMM) 0.9 H Absolute Eosinophils (0.0 - 0.7 /CUMM) 0.1 Absolute Basophils (0.0 - 0.2 /CUMM) 0.1 PUBS MCHC (33.0 - 37.0 G/DL) 32.4 L Last 24 Hours of [place] Results: No recent cultures Recent Imaging Studies: Chest x-ray September 25 stable appearance of bibasilar airspace opacities with layering pleural effusions Assessment/Plan Impression: Appears improved with decreased oxygen requirements, perhaps secondary to the continued treatment with Lasix, though she did not have a significant diuresis over the last 24 hours. She remains afebrile but white blood cell count has increased today of unclear significance and will need to be monitored closely, with repeat imaging of her abdomen if it continues to increase. She is now 31 days status post Granger's procedure for a perforated sigmoid colon, complicated by the development of a purulent right upper quadrant collection requiring drainage for nearly 3 weeks, with the catheter removed and antibiotics discontinued 5 days ago. Suggestion: 1. Further management of her fluid status per Cardiology 2. Continue to follow temperatures and white blood cell count off antibiotics
--- NOTE | 2016-09-26 11:51 | NUR ---
Received patient alert/appropriate, oriented to person, place, and some time but not all. Sitter at bedside providing support/reassurance for intermittent restlessness and anxiety. Patient c/o 5/10 aching abdominal pain upon first assessment but having a lot of anxiety. She said that the anxiety is making the pain worse and wants medicine for the anxiety. 1mg PO ativan ordered and given with relief. Patient states she feels better and wants to hold off and the pain medication at this time. Noted to be on high flow nasal cannula at 50% satting 85-92%. Patient c/o shortness of breath, O2 increased to 60% at 0840 with goal O2 sat of 88% in mind per attending MD. Lungs clear in the upper lobes, diminished to the bases with scattered rhonchi noted throughout. Sinus bradycardia - NSR on the monitor 50s-60s and dropping to 47. Dr Clement made aware. Patient taking propranolol in the evenings and to reassess need/effect on cardiac status. SBP 110s-120s. F[place] in place, Urine output is poor ranging from 8-25 cc/hr. Dr. Clement aware and possibilty of giving lasix today. Patient encouraged to drink PO fluids. Abdomen is soft, hypoactive bowel sounds. Open area to lower portion of healed incision w/ yellow wound base and red edges. Wound is well approximated and dressed w/ wet to dry dressing at 0900 this am, 09/26/16. Colostomy to left side of abdomen draining brown/unformed stool. Patient denies complaints. Otherwise, no edema, skin is intact. Bottom of red/blanchable, aloevesta applied. Healed sites to Left upper chest from thoraseal and abdomen from drains. Patient OOB w/ physical therapy to chair and to be hoyered back. Tolerated moving well. Given emotional reassurance/safety maintained.
[2016-09-26 16:00] VITALS: BP 108/60
--- NOTE | 2016-09-26 16:00 | NUR ---
PATIENT ALERT AND ORIENTED SITTING IN CHAIR. ABLE TO MOVE ALL EXTREMITIES BUT LOWER EXTREMITIES WEAK AND UNABLE TO STAND. LUNGS WITH SCATTERED RHONCHI DECREASED AT BASES. REMAINS ON HI FLOW NC A 50%OXYGEN WITH SAT 94%. MONITOR NSR WITHOUT ECTOPY WITH GOOD PULSES ALL EXTREMITIES. BELLY SOFT WITH GOOD BOWEL SOUNDS, DRESSING INTACT TO ABD WOUND, COLOSTOMY INTACT AND PINK AND FUNCTIONING WELL. TOBAR DRAINING WELL.
[2016-09-27] VITALS: BP 98/56
--- NOTE | 2016-09-27 00:16 | NUR ---
PT SLEEPY BUT AROUSABLE. DENIES PAIN AT THIE TIME..SB 50'S, MANUAL BP 98/56. SATURATION 93% ON THE BIPAP AT 60% FIO2. LUNGS SOUND CLEAR. COLOCTOMY INTACT, PINK. TOBAR IN PLACE, ADEQUATE UO AT THIS TIME. MIDLIN INCISION LINE INTACT. DRESSING UNDER THE UMBILICUS INTACT. SITTER AT BEDSIDE.
[2016-09-27 04:26] LABS: ABSOLUTE BASOPHIL COUNT 0.1 /CUMM (0.0-0.2); ABSOLUTE EOSINOPHIL COUNT 0.1 /CUMM (0.0-0.7); ABSOLUTE LYMPH COUNT 1.7 /CUMM (1.2-3.4); ABSOLUTE MONOCYTE COUNT 0.8 /CUMM (0.10-0.60); BASOPHIL % 0.9 % (0.0-2.0); GRANULOCYTE % 76.8 % (42.2-75.2); HEMATOCRIT 24.4 % (37-47); MEAN CORPUSCULAR HGB CONC 32.1 G/DL (33.0-37.0); MEAN CORPUSCULAR VOLUME 90.3 FL (81.0-99.0); PLATELET COUNT 568 /CUMM (130-400); RBC DISTRIBUTION WIDTH 17.7 % (11.5-14.5); WHITE BLOOD CELL COUNT 11.7 /CUMM (4.8-10.8)
[2016-09-27 08:00] VITALS: BP 110/60
--- NOTE | 2016-09-27 08:00 | PN- Resident CRCU ---
Subjective HPI/CRCU Issues: Afebrile and hemodynamically stable. She is alternating between BiPAP and high flow oxygen. Now she is on BiPAP 65%. Patient still reporting feeling anxious and mildly shortness breath this morning. She denies any other current active complaints. Objective Vital Signs & I&O Last 8 Hrs of Vitals and I&O: Vital Signs Date Time Temp Pulse Resp B/P B/P Pulse O2 O2 Flow FiO2 Mean Ox Delivery Rate 09/27 0857 95 Nasal 50% Cannula 09/27 0804 59 95 09/27 0607 63 93 09/27 0400 98 BIPAP 65% 09/27 0256 54 94 09/27 0030 53 95 09/27 0000 93 BIPAP 60% 09/27 0000 97.3 55 22 98/56 93 BIPAP 60% 09/26 2250 56 92 09/27 1999 93 Nasal 50% Cannula 09/26 1745 79 22 137/65 09/26 1728 93 Nasal 50% Cannula 09/26 1600 91 Nasal 50% Cannula 09/26 1600 97.8 64 26 108/60 90 Nasal 50% Cannula 09/26 1200 91 Nasal 60% Cannula Intake & Output 09/27 1600 09/27 0800 09/27 0000 Intake Total 100 480 Output Total 170 1420 Balance -70 -940 Intake, Oral 100 480 Output, Urine 170 1420 Exam General Appearance: no apparent distress, alert, awake, anxious Head: atraumatic, normal appearance Respiratory: normal breath sounds, chest non-tender, no respiratory distress, quiet respiration, decreased air entry over lung bases bilaterally Cardiovascular: regular rate/rhythm Gastrointestinal: normal bowel sounds, soft, non-tender Extremities: normal inspection, no edema Weaning Parameters NIF: 32 Minute Volume: 11.3 Resp rate: 20 Vt: 558 Heart Rate: 80 Weaning Schedule Minute Volume: 8.4 Resp Rate: 23 Vt: 350 Heart Rate: 80 End Time: 1035 Minute Volume: 17.5 Resp Rate: 40 Vt: 435 Heart Rate: 95 Start Time: 1100 Minute Volume: 7.9 Resp Rate: 25 Vt: 388 Heart Rate: 86 End Time: 1235 Minute Volume: 8.8 Resp Rate: 37 Vt: 280 Heart Rate: 89 Current Medications: Current Medications Sig/Ry Start time Last Medication Dose Route Stop Time Status Admin Albuterol Sulfate 3 ML EVERY 4 HRS/AWAKE 09/02 1999 AC 09/27 INH 0807 Albuterol Sulfate 3 ML Q4H PRN 08/27 1000 AC 08/28 INH 1309 Enoxaparin Sodium 40 MG DAILY 09/03 1000 AC 09/26 SC 0924 Furosemide 40 MG ONCE ONE 09/26 1745 DC 09/26 IV 09/26 1746 1750 Guaifenesin 600 MG Q12 09/25 2200 AC 09/26 PO 2214 Lorazepam 1 MG Q3P PRN 09/26 0930 AC 09/26 PO 2023 Magnesium Oxide 400 MG DAILY 09/12 1000 AC 09/26 PO 0924 Magnesium Sulfate 1 GM ONCE ONE 09/26 0800 DC 09/26 Dextrose/Water 100 ML IV 09/26 1159 0950 Morphine Sulfate 2 MG Q6-PRN PRN 09/26 1000 AC 09/26 IV 1349 Morphine Sulfate 2 MG Q3P PRN 09/15 0930 DC 09/25 IV 2141 Pantoprazole Sodium 40 MG DAILY 09/25 1000 AC 09/26 IV 0924 Potassium Chloride 40 MEQ ONCE ONE 09/27 0515 DC 09/27 PO 09/27 0516 0525 Potassium Chloride 20 MEQ 2200 09/26 2200 AC 09/26 PO 2214 Potassium Chloride 20 MEQ DAILY 09/12 1000 DC 09/26 PO 0924 Propranolol HCl 10 MG 1800 09/21 1800 AC 09/26 PO 1745 Sertraline HCl 50 MG DAILY 09/07 1301 AC 09/26 PO 0924 Sodium Chloride 2 SPRAY Q4P PRN 09/24 2130 AC ANIL Trazodone HCl 200 MG AT BEDTIME 09/07 2200 AC 09/26 PO 2214 Impression/Plan Impression/Problem List Impression: Ms. Camacho is a 60 year old female with PMH anxiety, depression, COPD , prior episode of severe clostridium difficile infection in 2016, tobacco abuse and gastritis who presented to the [facility] ED after one week of altered mental status, decreased oral intake. She was found to be hypotensive, febrile and altered while at [facility] ED. she was diagnosed with peritonitis 2/2 perforated sigmoid colon with abscess formation, S/P Harmann's procedure with Dr. Armendariz. Lower respiratory culture grew pseudomonas (resistent to zosyn) and culture from OR grew E.Coli, alpha/beta strep and brandon. She was diagnosed with hospital- acquired pneumonia and was placed on IV fluconazole and IV meropenem. Now patient is off Abx. Since extubation patient has been alternating between high flow oxygen and BiPAP, she still requiring high oxygen 60s to 70s percent. Neurological * Alert and oriented with no active neurological issue except feeling anxious * Psych meds including trazodone, propranolol, sertraline daily, and Ativan PO 1mg PRN Cardiovascular * Sinus tachycardia with T wave changes on admission(resolved). * ACS was excluded and Echo did implement any pathology. * Continue propranolol 10 mg at bedtime, even though patient has a bradycardia cardiology recommended continuing propranolol. * We will follow cardiology recommendation Respiratory * Patient was intubated for Ho's procedure, patient remained intubated until 09/15/16. * thoracentesis on 09/02/16 and again on 09/13/16. * We will keep saturation above 92% * We will use incentive spirometry as possible * TRC/Nebs * Aspiration precautions Renal * Had SIERRA on presentation Likely prerenal in the setting of severe sepsis. Kidney function is back to normal after IV hydration. * Patient overall have a positive balance * Yesterday around 900 negative balance * We'll Continue strict I/Os * We will keep 1-1.5 negative balance * Will receive 40 mg IV Lasix Fluids, Electrolytes, and Nutrition (FEN) * We'll replete potassium and magnesium to keep up to goal * we'll Continue ground and nectar diet. Infectious Diseases * During this admission received IV meropenem and IV fluconazole as a treatment for peritonitis with or culture growing Escherichia coli and fungal infection. * During this admission same antibiotic mentioned above used to treat questionable aspiration pneumonia * This morning she is afebrile * WBCs: Improved to 11.7 from 15.5 yesterday * CBC daily Hematology * Had total of 4 U PRBC since admission. * Stable H&H * Thrombocytosis today is 5685 * Normocytic anemia with Serum iron 19(L), TIBC 208(L), ferritin 296(H). This point towards early stage anemia of chronic disease. B12 and folic acid within normal limits Endocrinology * 3 days ago TSH was found to be 10 with a normal T4 and low T3 * We repeat TSH is still elevated we will consider consulting endocrinology FULL CODE DVT prophylaxis: ALPS + SC lovenox Ulcer prophylaxis: Pantoprazole Problem List: 1. Status post Ho's procedure Pain Ratin Tomorrow's Labs & Rationales: CBC and ICU bundle Plan DVT/Prophylaxis: mechanical, pharmacological Code Status: Full Code
--- NOTE | 2016-09-27 08:19 | PN- CRCU ---
Subjective HPI/Critical Care Issues: The patient is awake and alert. She remains anxious. She remains on BiPAP intermittently mixed with high flow oxygen. Her oxygen requirement remains elevated at 65%. She has excellent urine output and she is hemodynamically stable. Objective Current Medications: Current Medications Sig/Ry Start time Last Medication Dose Route Stop Time Status Admin Albuterol Sulfate 3 ML EVERY 4 HRS/AWAKE 09/01 2000 AC 09/27 INH 0807 Albuterol Sulfate 3 ML Q4H PRN 08/27 1000 AC 08/28 INH 1309 Enoxaparin Sodium 40 MG DAILY 09/03 1000 AC 09/26 SC 0924 Furosemide 40 MG ONCE ONE 09/26 1745 DC 09/26 IV 09/26 1746 1750 Guaifenesin 600 MG Q12 09/25 220 AC 09/26 PO 2214 Lorazepam 1 MG Q3P PRN 09/26 0930 AC 09/26 PO 202 Lorazepam 1 MG Q3P PRN 09/26 0845 DC IV Lorazepam 2 MG Q3P PRN 09/21 0945 DC 09/23 IV 2147 Magnesium Oxide 400 MG DAILY 09/12 1000 AC 09/26 PO 0924 Magnesium Sulfate 1 GM ONCE ONE 09/26 0800 DC 09/26 Dextrose/Water 100 ML IV 09/26 1159 0950 Morphine Sulfate 2 MG Q6-PRN PRN 09/26 1000 AC 09/26 IV 1349 Morphine Sulfate 2 MG Q3P PRN 09/15 0930 DC 09/25 IV 2141 Pantoprazole Sodium 40 MG DAILY 09/25 1000 AC 09/26 IV 0924 Potassium Chloride 40 MEQ ONCE ONE 09/27 0515 DC 09/27 PO 09/27 0516 0525 Potassium Chloride 20 MEQ 2200 09/26 220 AC 09/26 PO 2214 Potassium Chloride 20 MEQ DAILY 09/12 1000 DC 09/26 PO 0924 Propranolol HCl 10 MG 1800 09/21 1800 AC 09/26 PO 1745 Sertraline HCl 50 MG DAILY 09/07 1301 AC 09/26 PO 0924 Sodium Chloride 2 SPRAY Q4P PRN 09/24 2130 AC ANIL Trazodone HCl 200 MG AT BEDTIME 09/07 2200 AC 09/26 PO 2214 Vital Signs & I&O Last 24 Hrs of Vitals and I&O: Vital Signs Date Time Temp Pulse Resp B/P B/P Pulse O2 O2 Flow FiO2 Mean Ox Delivery Rate 09/27 0804 59 95 09/27 0607 63 93 09/27 0400 98 BIPAP 65% 09/27 0256 54 94 09/27 0030 53 95 09/27 0000 93 BIPAP 60% 09/27 0000 97.3 55 22 98/56 93 BIPAP 60% 09/26 2250 56 92 09/27 1999 93 Nasal 50% Cannula 09/26 1745 79 22 137/65 09/26 1728 93 Nasal 50% Cannula 09/26 1600 91 Nasal 50% Cannula 09/26 1600 97.8 64 26 108/60 90 Nasal 50% Cannula 09/26 1200 91 Nasal 60% Cannula Intake & Output 09/27 1600 09/27 0800 09/27 0000 Intake Total 100 480 Output Total 170 1420 Balance -70 -940 Intake, Oral 100 480 Output, Urine 170 1420 Exam General Appearance: no apparent distress, alert, awake, comfortable Head: atraumatic, normal appearance Neck: supple Respiratory: decreased breath sounds, rhonchi Cardiovascular: regular rate/rhythm Abdomen: normal bowel sounds, soft, non-tender Extremities: trace edema Skin: intact, warm/dry Results Last 24 Hrs of Lab Results: Laboratory Tests 09/27/16 0318: Anion Gap 6, Estimated GFR > 60, Glucose 75, Calcium 8.5, Phosphorus 4.7 H, Magnesium 2.0, Total Bilirubin 0.3, AST 14, ALT 27, Albumin 2.1 L, CBC w Diff NO MAN DIFF REQ, RBC 2.70 L, MCV 90.3, MCH 29.0, RDW 17.7 H, MPV 8.0, Gran % 76.8 H, Lymphocytes % 14.2 L, Monocytes % 7.1, Eosinophils % 1.0, Basophils % 0.9, Absolute Granulocytes 9.0 H, Absolute Lymphocytes 1.7, Absolute Monocytes 0.8 H, Absolute Eosinophils 0.1, Absolute Basophils 0.1, PUBS MCHC 32.1 L Impression/Plan Impression/Plan Impression/Plan: 1. Hypoxemic respiratory failure. 2. Pleural effusion, status post thoracentesis with pneumothorax. 3. Status post pericolic abscess with drainage and sigmoid colectomy with end colostomy. 4. Persistent leukocytosis, stable. 5. Thrombocytosis, likely reactive. Recommendations: * Continue BiPAP and high flow is tolerated. * Replace electrolytes as necessary. * Wean oxygen down for saturations greater than 92%. * Continue TRC/nebs. * Incentive spirometry. * Continue aspiration precautions. * Monitor off antibiotics as per ID. * Increase activity, out of bed to chair. * Continue all baseline medications. * Continue DVT prophylaxis at all times. Code Status: Full Code
--- NOTE | 2016-09-27 09:32 | PN- Psychiatry ---
Assessment/Plan Impression: Identifying Info: 60-year-old female with a history of PAULA and MDD treated at [facility] presents to [facility] emergency department on 08/25/2016 with altered mental status. Subsequently found to be septic and has had complicated hospital course. SUBJECTIVE Patient states "I want help with the pain and anxiety." Pt reports she is frustrated at prolonged hospitalization and she feels ready to return home to live with her sister, "I just have to learn how to walk again first." Patient is agreeable to increase in her Zoloft today for mood and anxiety and start melatonin to help with sleep. She states she would like to return to care postdischarge. Brief ROS Gait: Not observed Sleep: Poor Appetite: Poor OBJECTIVE Mental Status Exam Presentation/Appearance: Calm. Cooperative with evaluation. Hospital garb. Orientation: x4 Sensorium: Awake and alert Eye contact: Fair Affect: Somewhat constructed, congruent Mood: Anxious Depression: Endorses Anxiety: Endorses Thought Content: - Denies SI/HI, AH/VH, PI. States and also believes they will not kill themselves. - Denies Hopeless/Helpless Thoughts Thought Process: Linear but endorses issues with confusion Associations: Appropriate Speech: Soft & dysarthric Judgment: Fair Insight: Intact Cognition: Memory: Endorses issues, difficulty word finding noted Attention/Concentration: Grossly intact Fund of Knowledge: Adequate Abstractions: Did not assess MMSE: Did not assess ASSESSMENT 60-year-old female with continued anxiety and mood issues in the context of prolonged hospitalization. Today is agreeable to an increase in medication. Diagnosis Generalized Anxiety Disorder Major Depressive Disorder Delirium due to infection, resolved A total of 30 minutes was spent with the patient with more than 50% of the time spent in counseling and/or coordination of care. Suggestion: 1. Please increase sertraline to 100 mg daily. 2. Please start melatonin 10 mg daily at bedtime. 3. Please continue lorazepam as currently ordered. 4. Patient continues to plan to follow-up with care post discharge. Thank you for including psychiatry in this case we'll continue to follow. Subjective Subjective: as above Objective Last 24 Hrs of Vital Signs/I&O Current Medications Sig/Ry Start time Last Medication Dose Route Stop Time Status Admin Albuterol Sulfate 3 ML EVERY 4 HRS/AWAKE 09/02 1999 AC 09/27 INH 0807 Albuterol Sulfate 3 ML Q4H PRN 08/27 1000 AC 08/28 INH 1309 Enoxaparin Sodium 40 MG DAILY 09/03 1000 AC 09/26 SC 0924 Furosemide 40 MG ONCE ONE 09/26 1745 DC 09/26 IV 09/26 1746 1750 Guaifenesin 600 MG Q12 09/25 2200 AC 09/26 PO 2214 Lorazepam 1 MG Q3P PRN 09/26 0930 AC 09/26 PO 2023 Magnesium Oxide 400 MG DAILY 09/12 1000 AC 09/26 PO 0924 Magnesium Sulfate 1 GM ONCE ONE 09/26 0800 DC 09/26 Dextrose/Water 100 ML IV 09/26 1159 0950 Morphine Sulfate 2 MG Q6-PRN PRN 09/26 1000 AC 09/26 IV 1349 Morphine Sulfate 2 MG Q3P PRN 09/15 0930 DC 09/25 IV 2141 Pantoprazole Sodium 40 MG DAILY 09/25 1000 AC 09/26 IV 0924 Potassium Chloride 40 MEQ ONCE ONE 09/27 0515 DC 09/27 PO 09/27 0516 0525 Potassium Chloride 20 MEQ 22009/26 2200 AC 09/26 PO 2214 Potassium Chloride 20 MEQ DAILY 09/12 1000 DC 09/26 PO 0924 Propranolol HCl 10 MG 1800 09/21 1800 AC 09/26 PO 1745 Sertraline HCl 50 MG DAILY 09/07 1301 AC 09/26 PO 0924 Sodium Chloride 2 SPRAY Q4P PRN 09/24 2130 AC ANIL Trazodone HCl 200 MG AT BEDTIME 09/07 2200 AC 09/26 PO 2214 Laboratory Tests 09/27/16 0318: Anion Gap 6, Estimated GFR > 60, Glucose 75, Calcium 8.5, Phosphorus 4.7 H, Magnesium 2.0, Total Bilirubin 0.3, AST 14, ALT 27, Albumin 2.1 L, CBC w Diff NO MAN DIFF REQ, RBC 2.70 L, MCV 90.3, MCH 29.0, RDW 17.7 H, MPV 8.0, Gran % 76.8 H, Lymphocytes % 14.2 L, Monocytes % 7.1, Eosinophils % 1.0, Basophils % 0.9, Absolute Granulocytes 9.0 H, Absolute Lymphocytes 1.7, Absolute Monocytes 0.8 H, Absolute Eosinophils 0.1, Absolute Basophils 0.1, PUBS MCHC 32.1 L 09/26/16 0349: Anion Gap 8, Estimated GFR > 60, Glucose 75, Calcium 8.5, Phosphorus 4.7 H, Magnesium 1.9, Total Bilirubin 0.5, AST 16, ALT 37, Albumin 2.2 L, CBC w Diff NO MAN DIFF REQ, RBC 2.82 L, MCV 90.6, MCH 29.3, RDW 17.3 H, MPV 7.9, Gran % 83.6 H, Lymphocytes % 9.7 L, Monocytes % 5.9, Eosinophils % 0.4, Basophils % 0.4, Absolute Granulocytes 13.0 H, Absolute Lymphocytes 1.5, Absolute Monocytes 0.9 H, Absolute Eosinophils 0.1, Absolute Basophils 0.1, PUBS MCHC 32.4 L 09/25/16 0337: Anion Gap 5, Estimated GFR > 60, Glucose 73, Calcium 8.3 L, Phosphorus 4.4, Magnesium 1.6, Total Bilirubin 0.4, AST 18, ALT 24, Albumin 2.1 L, TSH 8.880 H , Free T4 1.49, CBC w Diff NO MAN DIFF REQ, RBC 2.86 L, MCV 90.4, MCH 29.4, RDW 17.2 H, MPV 7.9, Gran % 77.7 H, Lymphocytes % 12.7 L, Monocytes % 8.0, Eosinophils % 1.2, Basophils % 0.4, Absolute Granulocytes 10.1 H, Absolute Lymphocytes 1.7, Absolute Monocytes 1.0 H, Absolute Eosinophils 0.2, Absolute Basophils 0, PUBS MCHC 32.5 L Vital Signs Date Time Temp Pulse Resp B/P B/P Pulse O2 O2 Flow FiO2 Mean Ox Delivery Rate 09/27 0857 95 Nasal 50% Cannula 09/27 0804 59 95 09/27 0607 63 93 09/27 0400 98 BIPAP 65% 09/27 0256 54 94 09/27 0030 53 95 09/27 0000 93 BIPAP 60% 09/27 0000 97.3 55 22 98/56 93 BIPAP 60% 09/26 2250 56 92 09/26 2000 93 Nasal 50% Cannula 09/26 1745 79 22 137/65 09/26 1728 93 Nasal 50% Cannula 09/26 1600 91 Nasal 50% Cannula 09/26 1600 97.8 64 26 108/60 90 Nasal 50% Cannula 09/26 1200 91 Nasal 60% Cannula Intake & Output 09/27 1600 09/27 0800 09/27 0000 Intake Total 100 480 Output Total 170 1420 Balance -70 -940 Intake, Oral 100 480 Output, Urine 170 1420
--- NOTE | 2016-09-27 14:26 | NUR ---
1200 ANASTACIA PICC BOTH LUMENS SLUGGISH CATH SEAN ORDERED
[2016-09-27 16:00] VITALS: BP 102/68
--- NOTE | 2016-09-27 16:49 | NUR ---
CATH SEAN ADM. AT 1445 AT THIS TIME D/L FLUSHED EASILY POSITIVE BLOOD RETURN X2
--- NOTE | 2016-09-27 23:19 | NUR ---
LOW URINE OUTPUT, 20 CC/HR. INFORMED, IV LASIX 20 MG GIVEN
[2016-09-28] VITALS: BP 105/62
[2016-09-28 05:53] LABS: ABSOLUTE BASOPHIL COUNT 0 /CUMM (0.0-0.2); ABSOLUTE EOSINOPHIL COUNT 0.2 /CUMM (0.0-0.7); ABSOLUTE LYMPH COUNT 1.8 /CUMM (1.2-3.4); ABSOLUTE MONOCYTE COUNT 0.8 /CUMM (0.10-0.60); BASOPHIL % 0.3 % (0.0-2.0); EOSINOPHIL % 1.6 % (0-5); GRANULOCYTE % 75.8 % (42.2-75.2); HEMATOCRIT 25.4 % (37-47); MEAN CORPUSCULAR HGB 29.2 PG (27.0-31.0); MEAN CORPUSCULAR HGB CONC 32.3 G/DL (33.0-37.0); MEAN CORPUSCULAR VOLUME 90.5 FL (81.0-99.0); PLATELET COUNT 526 /CUMM (130-400); RED BLOOD CELL CT 2.81 /CUMM (4.20-5.40); WHITE BLOOD CELL COUNT 11.9 /CUMM (4.8-10.8)
[2016-09-28 08:00] VITALS: BP 100/60
--- NOTE | 2016-09-28 08:14 | PN- Resident CRCU ---
Subjective HPI/CRCU Issues: Afebrile, hemodynamically stable, and mildly bradycardic. For the first time patient saturating upper 90s on 50% percent of BiPAP. 800 negative balance yesterday. Significant improvement in air entry at lung bases bilaterally. Chest x-ray shows improvement compared to the 18th of this month however the official report is not back. 24 Hour Events: MAXIMUM TEMPERATURE 99.3 HR is Hovering on the upper 50s Systolic blood pressure was mainly in the 120s however it dropped to 95 twice overnight Patient yesterday was 800 negative balance. Objective Vital Signs & I&O Last 8 Hrs of Vitals and I&O: Vital Signs Date Time Temp Pulse Resp B/P B/P Pulse O2 O2 Flow FiO2 Mean Ox Delivery Rate 09/28 0807 56 97 09/28 0804 96 Nasal 50% Cannula 09/28 0547 69 91 09/28 0400 93 Nasal 50% Cannula 09/28 0258 52 92 09/28 0028 52 93 09/28 0000 94 Nasal 50% Cannula 09/28 0000 97.3 54 24 105/62 94 50% 09/27 2141 87 95 09/27 2000 94 Nasal 50% Cannula 09/27 1803 66 114/65 09/27 1600 96 Nasal 50% Cannula 09/27 1600 98.6 63 22 102/68 96 Nasal 50% Cannula 09/27 1548 96 Nasal 50% Cannula 09/27 1200 100 Nasal 50% Cannula 09/27 0857 95 Nasal 50% Cannula Intake & Output 09/28 1600 09/28 0800 09/28 0000 Intake Total 20 380 Output Total 740 245 Balance -720 135 Intake, IV 40 Intake, Oral 20 340 Output, Stool 30 60 Output, Urine 710 185 Exam General Appearance: no apparent distress, alert, awake, comfortable Head: atraumatic, normal appearance, BiPAP inplace Respiratory: normal breath sounds, chest non-tender, no respiratory distress, quiet respiration, lungs clear Cardiovascular: regular rate/rhythm Gastrointestinal: normal bowel sounds, soft, non-tender Extremities: normal inspection, no edema Weaning Parameters NIF: 32 Minute Volume: 11.3 Resp rate: 20 Vt: 558 Heart Rate: 80 Weaning Schedule Minute Volume: 8.4 Resp Rate: 23 Vt: 350 Heart Rate: 80 End Time: 1035 Minute Volume: 17.5 Resp Rate: 40 Vt: 435 Heart Rate: 95 Start Time: 1100 Minute Volume: 7.9 Resp Rate: 25 Vt: 388 Heart Rate: 86 End Time: 1235 Minute Volume: 8.8 Resp Rate: 37 Vt: 280 Heart Rate: 89 Current Medications: Current Medications Sig/Ry Start time Last Medication Dose Route Stop Time Status Admin Albuterol Sulfate 3 ML EVERY 4 HRS/AWAKE 09/01 2000 AC 09/28 INH 0803 Albuterol Sulfate 3 ML Q4H PRN 08/27 1000 AC 08/28 INH 1309 Alteplase, 2 MG ONE ONE 09/27 1300 DC 09/27 Recombinant IV 09/27 1301 1444 Alteplase, 2 MG ONE ONE 09/27 1230 DC 09/27 Recombinant IV 09/27 1231 1442 Enoxaparin Sodium 40 MG DAILY 09/03 1000 AC 09/27 SC 1117 Furosemide 20 MG ONCE ONE 09/27 2245 DC 09/27 IV 09/27 2246 2258 Furosemide 20 MG ONCE ONE 09/27 1115 DC 09/27 IV 09/27 1116 1117 Guaifenesin 600 MG Q12 09/25 2200 AC 09/27 PO 2157 Lorazepam 1 MG Q3P PRN 09/26 0930 AC 09/27 PO 1201 Magnesium Oxide 400 MG DAILY 09/12 1000 AC 09/27 PO 1117 Melatonin 10 MG AT BEDTIME 09/27 2200 AC 09/27 PO 2157 Morphine Sulfate 2 MG Q6-PRN PRN 09/26 1000 AC 09/27 IV 1436 Pantoprazole Sodium 40 MG DAILY 09/25 1000 AC 09/27 IV 1115 Potassium Chloride 20 MEQ 2200 09/26 2200 AC 09/27 PO 2157 Propranolol HCl 10 MG 1800 09/21 1800 AC 09/27 PO 1803 Sertraline HCl 100 MG DAILY 09/27 1000 AC 09/27 PO 1116 Sertraline HCl 50 MG DAILY 09/07 1301 DC 09/26 PO 0924 Sodium Chloride 2 SPRAY Q4P PRN 09/24 2130 AC ANIL Trazodone HCl 200 MG AT BEDTIME 09/07 2200 AC 09/27 PO 2157 Impression/Plan Impression/Problem List Impression: Ms. Camacho is a 60 year old female with PMH anxiety, depression, COPD , prior episode of severe clostridium difficile infection in 2016, tobacco abuse and gastritis who presented to the [facility] ED after one week of altered mental status, decreased oral intake. She was found to be hypotensive, febrile and altered while at [facility] ED. she was diagnosed with peritonitis 2/2 perforated sigmoid colon with abscess formation, S/P Harmann's procedure with Dr. Armendariz. Lower respiratory culture grew pseudomonas (resistent to zosyn) and culture from OR grew E.Coli, alpha/beta strep and brandon. She was diagnosed with hospital- acquired pneumonia and was placed on IV fluconazole and IV meropenem. Now patient is off Abx. Since extubation patient has been alternating between high flow oxygen and BiPAP, she still requiring high oxygen 60s to 70s percent. Neurological * Alert and oriented with no active neurological issue except feeling anxious * Continue trazodone * Start melatonin 10 mg at bedtime * Continue propranolol * Sertraline was increased to 100 mg yesterday * We will avoid Ativan as possible. If needed evaluate respiratory status before giving Ativan PO 1mg. Cardiovascular * Sinus tachycardia with T wave changes on admission(resolved). * ACS was excluded and Echo did implement any pathology. * Continue propranolol 10 mg at bedtime, even though patient has a bradycardia cardiology recommended continuing propranolol. * We will follow cardiology recommendation Respiratory * Patient was intubated for Ho's procedure, patient remained intubated until 09/15/16. * thoracentesis on 09/02/16 and again on 09/13/16. * This morning for the first time post extubation patient is saturating upper 90s on 50% BiPAP with a significant improvement on air movement at lung base bilaterally * We will use incentive spirometry as possible * TRC/Nebs * Aspiration precautions Renal * Had SIERRA on presentation Likely prerenal in the setting of severe sepsis. Kidney function is back to normal after IV hydration. * Patient overall have a positive balance * Yesterday around 800 negative balance * We'll Continue strict I/Os * We will keep 1 L negative balance daily * Will receive 20 mg IV Lasix Fluids, Electrolytes, and Nutrition (FEN) * We'll replete potassium and magnesium to keep up to goal * we'll Continue ground diet with thin liquid. Infectious Diseases * During this admission received IV meropenem and IV fluconazole as a treatment for peritonitis with or culture growing Escherichia coli and fungal infection. * During this admission same antibiotic mentioned above used to treat questionable aspiration pneumonia * WBCs: Improved to 11.9 * CBC daily Hematology * Had total of 4 U PRBC since admission. * Stable H&H * Thrombocytosis today is 526 * Normocytic anemia with Serum iron 19(L), TIBC 208(L), ferritin 296(H). This point towards early stage anemia of chronic disease. B12 and folic acid within normal limits Endocrinology * 3 days ago TSH was found to be 10 with a normal T4 and low T3, repeated TSH showed improvement however still high. * We will send for antithyroid antibody panel, if antibodies are negative we will repeat thyroid function after 1 month, if antibodies positively we will start hormone replacement therapy. FULL CODE DVT prophylaxis: ALPS + SC lovenox Ulcer prophylaxis: Pantoprazole Problem List: 1. Status post Ho's procedure Pain Ratin Tomorrow's Labs & Rationales: CBC and ICU bundle Plan DVT/Prophylaxis: mechanical, pharmacological Code Status: Full Code
--- NOTE | 2016-09-28 08:14 | Discharge Summary ---
See Addendum Visit Information Visit Dates Admission Date: 08/25/16 Discharge Date: 10/03/2016 Hospital Course Course Attending Physician: MELISSA BALDWIN MD Primary Care Physician: LAN BAILEY,[place] Hospital Course: Ms. Todd is a 60 year old female with PMH anxiety, depression, COPD , prior episode of severe clostridium difficile infection in 2016, tobacco abuse and gastritis who presented to the [facility] ED after one week of altered mental status, decreased oral intake and possible withdrawl symptoms as her clonazepam was being titrated off per doctor instructions. She was found to be hypotensive, febrile and altered while in the [facility] ED. In the ED: Vital signs showed Tmax 101.5, HR 116, RR 20, BP 93/62 and O2 saturation 90% on room air. Labs were significant for WBC 18.1 with 37 bands, H&H 13.7/41.6, Plt 623, Na 143 , K 3.6, Cl 107, HCO3 16, BUN/cre 28/1.8, Glu 98, Lactic acid 2.9, AST 62, ALT 42, CK 370, troponin 0.05, proBNP 02241, amylase 153, lipase <10, and UA with high protein, positive nitrite, high urobilinogen, 50 WBCs, moderate bacteria and large hgb. CXR showed no acute pulmonary process. Head CT was negative for acute pathology. Patient was admitted to the ICU and the following was the management to date: 1. Severe sepsis secondary to peritonitis from perforated sigmoid colon with abscess formation: Patient febrile, leukocytosis with bandemia, hypotensive and tachycardic on admission. She was griggs-cultured and started on empiric antibiotic therapy with IV unasyn and ceftriaxone. ID consult with Dr. Alycia MD placed. She was placed on pressors for blood pressure support. CT abdomen/pelvis showed free intra-abdominal air and patient was taken to the OR with Dr. aMrcello MD for exploratory laparotomy. Patient tolerated Ho's procedure well with noted sigmoid resection and end colostomy well. She was switched to IV flagyl and IV ceftriaxone given concern for previous history of clostridium difficile. Surgery followed patient daily and continued to advice on management of continued intra- abdominal infection. Blood cultures showed no growth, lower respiratory culture grew pseudomonas and culture from OR grew E.Coli, alpha/beta strep and brandon. As lower respiratory culture pseudomonas was resistent to zosyn, patient was placed on IV fluconazole and IV meropenem for complete coverage. Patient had repeat abdominal CT scan which demarcated fluid collections. IR placed one RUQ drain and one LLQ drain to drain this fluid. LLQ was subsequently taken out but the RUQ drain remains in place with continued purulent drainage. Patient hypotensive overnight 09/11/16-09/12/16 and was started on levophed again. Due to this and noted hypoxia, follow up CTA to rule out PE and follow up abdominal/ pelvis CT with IV and PO contrast ordered. Please follow up the results of these two tests, continue to follow ID/surgical recommendations and please continue IV antibiotics to completion. Subsequently the right upper quadrant drain was also removed. Her respiratory status continued to improve and she was extubated. She continued to be on BiPAP intermittently initially after extubation as her respiratory rate would continue to stay high, with component of anxiety contributing as well. Eventually after 2-3 days of BiPAP post extubation, she was then transitioned to nasal cannula. She was planned for discharge to pulmonary rehabilitation named [facility] for continued pulmonary rehabilitation due to high oxygen demand, though, while patient was awaiting a bed availability her physical status improved and her O2 requirment decreased to 2-3 lit. Patient still needs pulmonology rehabilitation for which she will be discharged to [facility]. 2. Metabolic encephalopathy: Patient noted to have altered mental status leading up to admission including one episode of eating toilet paper. Likely due to sepsis with gross peritonitis. All home psychotropic medications held on admission and psychiatric consult placed. It was suggested to not resume these medications until mental status back to baseline. As IV antibiotics adjusted and patient came off of pressors, her mental status returned to baseline and patient completely alert and oriented as well as able to follow commands. Home psychotropics resumed. There was also a component of anxiety and psychiatry was consulted. He was continued on Zoloft 100 mg daily and gabapentin 100 every 8 was also her off label use of anxiety as we did not want to give her any ativan. After transfer to ED floor patients mentation has gradually improved on the daily basis. 3. Acute hypoxic respiratory failure: Patient initially placed on non-rebreather ue to lower O2 saturation on admission of 90% on room air. She was transitioned to high flow nasal cannula/BiPAP due to tachypnea/apparent respiratory distress but was intubated for Ho's procedure with Dr. Marcello MD. Patient had noted bilateral pleural effusions seen on chest CT and had a thoracentesis by IR on . She required high flow oxygen and was quilified for [facility] for pulmonary rehab. While she was \waiting for bed in [place] her O2 requirment decreased and patient's mobility increased as well. She still needs assisstance for ambulation and on 2 lit of N/C. Quilified for [facility] for PT and pulmonary rehab. 4. SIERRA: secondary to severe sepsis. Patient BUn/Cr improved on the daily basis with hydration and eventuallly resolved. 5. Sinus tachycardia with minor T wave changes: Minor T wave changes noted on initial EKG. ACS as ruled out with troponin/EKG x 3. Echocardiogram was performed and showed normal global left ventricular function without wall motion abnormalities and normal pulmonary artery systolic pressure. She was continued on the telemetry monitoring. 6. Thrombocytosis: On admission, patient had thrombocytosis to 623. She subsequently drooped rapidly with jenifer of 89. DVT prophylaxis was discontinued at that time and platelet count was monitored closely. 4Ts score placed patient at low risk for HIT (<5%). Acute drop likely represented coagulopathy from ongoing sepsis. Platelet count returned to normal and patient again has thrombocytosis. She was placed back on DVT prophylaxis with SC lovenox on 09/02. 7. Acute blood loss anemia: Noted anemia after Granger's procedure. She has had her CBC trended and a total of 4 units PRBCs delivered to date. No evidence of acute bleeding was appreciated. He did not receive any more blood transfusions after that and her H&H remained stable. 8. Anxiety: patient was started on po propranolol as an outpatient for anxiety. During her hospitalization, propranolol was held due to concern regarding her severe COPD and borderline low blood pressure. Patient was evaluaited by psychiatrist. zoloft increased 150 mg every day Till 10/09/2016, then take Zoloft 200 mg every day Gabapentin dose increased to 300 mg 3 times a day as required for anxiety Home medications propranolol, hydroxyzine, Paxil were stopped Allergies: Coded Allergies: azithromycin (Intermediate, NAUSEA AND VOMITING 08/26/16) Significant Procedures: SERVICE DATE: 08/25/16-1429 EXAM TYPE: CAT - CT HEAD WO IV CONTRAST EXAMINATION: CT HEAD WITHOUT CONTRAST CLINICAL INFORMATION: Altered mental status COMPARISON: None. TECHNIQUE: Contiguous axial imaging was performed from the skull base to vertex without intravenous contrast. DLP: 627 mGy-cm. FINDINGS: There is no evidence of acute intracranial hemorrhage or territorial infarction. No abnormal mass effect or midline shift is seen. Diaz to white matter differentiation is well preserved. No extra-axial fluid collections are identified. No hydrocephalus. No significant volume loss. Patchy periventricular and deep white matter hypoattenuation is consistent with mild small vessel ischemic changes. The osseous structures and soft tissues are normal. The mastoid air cells and visualized portions of the paranasal sinuses are well aerated. IMPRESSION: No acute intracranial pathology. SERVICE DATE: 08/26/16- EXAM TYPE: US - US-LIMITED ABDOMEN EXAMINATION: US ABDOMEN LIMITED CLINICAL INFORMATION: Severe abdominal right upper quadrant pain. COMPARISON: CT of the chest and abdomen done on 08/26/2016. TECHNIQUE: Real-time imaging of the right upper quadrant abdominal viscera. FINDINGS: PANCREAS: Nonvisualized, accordingly not evaluated. LIVER: There is diffuse increased liver parenchymal echogenicity, consistent with diffuse liver disease free fluid is noted around the liver. GALLBLADDER: The gallbladder is physiologically distended without evidence of stones, sludge, polyps, or pericholecystic fluid. The gallbladder wall measures 0.4 cm (up to 0.3 cm is within normal limits). COMMON BILE DUCT: Normal in caliber measuring 0.5 cm in diameter. RIGHT KIDNEY: No hydronephrosis. No renal calculi or focal parenchymal lesions. The kidney measures 8.1 cm in maximum dimension. FREE FLUID: Wscqj-rz-oaobnrio amount of free fluid is noted predominantly around the liver. IMPRESSION: 1. The gallbladder wall shows borderline thickening without any pericholecystic fluid or gallstone. The wall thickening may represent changes secondary to presence of free fluid within the upper abdomen. 2. Diffuse heterogeneous echotexture within the liver consistent with diffuse liver disease. 3. Nonvisualized pancreas. 4. Pzyco-sj-rxrlsafw amount of free fluid predominantly around the liver. SERVICE DATE: 08/26/16- EXAM TYPE: RAD - XRY-PORTABLE CHEST XRAY EXAMINATION: XR PORTABLE CHEST CLINICAL INFORMATION: Volume overload. Worsening shortness of breath. COMPARISON: Chest 08/25/2016. TECHNIQUE: Portable frontal view of the chest was obtained. FINDINGS: Both lungs are hypoexpanded with the right basilar haziness suspicious for atelectasis or infiltrate. There is mild blunting of right CP angle, ? Atelectasis, pleural thickening or tiny effusion.. The heart size and pulmonary vascularity is normal. No gross bony abnormality seen. IMPRESSION: Hypoexpanded lungs with probable right lower lobe atelectasis or infiltrate. Suspect small right pleural effusion or pleural thickening. SERVICE DATE: 08/26/16- EXAM TYPE: CARD - ECHOCARDIOGRAM YNES TODD Age: 60 : 1955 Gender: F Exam Date: 08/26/2016 08:52 Exam Location: [facility] Ht (in): 64 Wt (lb): 129 BSA: 1.63 BP: 105 / 85 Ordering Physician: GHANSHYAM GILMORE M Referring Physician: GHANSHYAM GILMORE MD Technologist: Barber Hearn RDCS Room Number: 103 Indications: HYPOTENSION Rhythm: Sinus tachycardia Technical Quality: Technically difficult study FINDINGS Left Ventricle Normal size left ventricle. Normal global left ventricular size, wall thickness, systolic function with no obvious regional wall motion abnormalities. Normal left ventricular ejection fraction visually estimated at >65 %. Normal left ventricular diastolic filling pattern for age. Right Ventricle The right ventricle is normal in size and function. Right Atrium The right atrium is normal in size. Left Atrium The left atrium is normal in size. The interatrial septum is intact. Mitral Valve The mitral valve is normal in structure and function. There is trace mitral regurgitation. Aortic Valve Structurally normal aortic valve without significant sclerosis or stenosis. There is no aortic regurgitation. Tricuspid Valve The tricuspid valve is normal in structure and function. There is trace tricuspid regurgitation. Pulmonary artery systolic pressure is normal. Pulmonic Valve Pulmonic valve not well visualized. Pericardium Normal pericardium without effusion. No pleural effusion. Great Vessels Normal aortic root dimension. CONCLUSIONS Technically difficult and limited study. Normal global left ventricular size, wall thickness, systolic function with no obvious regional wall motion abnormalities. No significant valve abnormalities. Physiologic valvular regurgitation. Pulmonary artery systolic pressure is normal. Joshua Kahn M.D. (Electronically Signed) Final Date: 26 Aug 2016 11:57 MEASUREMENTS (Male / Female) Normal Values 2D ECHO LV Diastolic Diameter PLAX 4.5 cm 4.2 - 5.9 / 3.9 - 5.3 cm LV Systolic Diameter PLAX 3.0 cm 2.1 - 4.0 cm LV Fractional Shortening PLAX 33.3 % 25 - 46 % LV Ejection Fraction 2D Teich 62.1 % IVS Diastolic Thickness 0.8 cm LVPW Diastolic Thickness 0.7 cm LV Relative Wall Thickness 0.3 RV Internal Dim ED PLAX 2.7 cm 1.9 - 3.8 cm LVOT Diameter 1.8 cm Aortic Root Diameter 2.8 cm LA Systolic Diameter LX 2.0 cm 3.0 - 4.0 / 2.7 - 3.8 cm Ascending Aorta Diameter 2.3 cm DOPPLER AV Peak Velocity 132.0 cm/s AV Peak Gradient 7.0 mmHg AV Mean Velocity 78.4 cm/s AV Mean Gradient 3.0 mmHg AV Velocity Time Integral 20.3 cm LVOT Peak Velocity 126.0 cm/s LVOT Peak Gradient 6.4 mmHg LVOT Mean Velocity 71.2 cm/s LVOT Mean Gradient 3.0 mmHg LVOT Velocity Time Integral 22.2 cm LVOT Stroke Volume 56.5 cm AV Area Cont Eq vti 2.8 cm AV Area Cont Eq pk 2.4 cm TR Peak Velocity 223.0 cm/s TR Peak Gradient 19.9 mmHg Right Atrial Pressure 5.0 mmHg Pulmonary Artery Systolic Pressu 24.9 mmHg Right Ventricular Systolic Press 24.9 mmHg PV Peak Velocity 134.0 cm/s PV Peak Gradient 7.2 mmHg PV Mean Velocity 81.9 cm/s PV Mean Gradient 3.0 mmHg PV Velocity Time Integral 21.8 cm LV E' Lateral Velocity 12.2 cm/s LV E' Septal Velocity 8.0 cm/s SERVICE DATE: 08/26/16- EXAM TYPE: US - US-EXT BILAT VENOUS DOPPLER EXAMINATION: US TRIPLEX OF LOWER EXTREMITIES, BILATERAL CLINICAL INFORMATION: Tachypnea, tachycardia. Leg swelling COMPARISON: None TECHNIQUE: Color-flow triplex imaging with spectral analysis and compression Doppler were performed on the lower extremities. FINDINGS: There is normal compression, color-flow and respiratory radiation seen in bilateral common femoral, greater saphenous, superficial femoral, popliteal, tibioperoneal trunk and the calf veins. There is no right Bhardwaj's cyst. There is a small left Bhardwaj's cyst measuring 3.0 x 1.4 x 1.9 cm. IMPRESSION: Normal bilateral lower leg venous study without any evidence of DVT. Small left Bhardwaj's cyst. SERVICE DATE: 08/26/160159 EXAM TYPE: CAT - CT ABD & PELVIS W/O IV CONTRAS; CT CHEST WO IV CONTRAST Addendum: There are few flecks of extraluminal gas present indicative of pneumoperitoneum. The clinical staff is aware of this finding. Addendum Signed by: DENNY BURNETT MD 08/27/16 0045 EXAMINATION: CT CHEST, ABDOMEN AND PELVIS WITHOUT CONTRAST CLINICAL INFORMATION: Altered mental status. Fever. COMPARISON: None. TECHNIQUE: Contiguous axial thin section helical images of the chest, abdomen and pelvis were performed following without oral or IV contrast. The data set was reformatted in the coronal and sagittal planes and reviewed on an independent workstation. DLP: 453 mGy-cm. FINDINGS: The heart is of normal size. There is no pericardial effusion. There is neither mediastinal, hilar nor axillary lymphadenopathy. There are no chest wall masses. Review of lung windows demonstrates that there are no pneumothoraces. There are small bilateral pleural effusions with associated airspace disease. There is atelectasis within the inferior left upper lobe and medial right upper lobe. There is bilateral lower lobe bronchial wall thickening and patchy atelectasis. The liver is of normal size and attenuation without intrahepatic biliary ductal dilation. Within the right lobe of the liver on image 57/119, there is a 9 mm low-attenuation lesion which is too small to fully characterize, but statistically likely represents a cyst. Within the left lobe anteriorly, there is a 11 mm cyst. The gallbladder is distended. There is no wall thickening or discernible pericholecystic fluid. The spleen, pancreas, adrenal glands are unremarkable. Both kidneys are of normal size and attenuation without hydronephrosis or nephrolithiasis. There is a moderate amount of free fluid within the upper abdomen. There is neither mesenteric nor retroperitoneal lymphadenopathy. Several air-fluid levels are present within mildly prominent loops of small bowel. There is no obstruction unremarkable unopacified large bowel is identified. There is a small amount of pelvic free fluid. A Fulton catheter is present within the urinary bladder which is partially filled. There is neither pelvic nor inguinal lymphadenopathy. Bone windows: Neither sclerotic nor lytic bone lesions are identified. There is disc height loss at L4/L5. There is mild anterior displacement of L4 in relation to L5, likely career representative of pseudocyst listhesis due to degenerative change within the facet joints. IMPRESSION: Moderate amount of ascites within the upper abdomen. Small bilateral pleural effusions with associated airspace disease. Multiple air-fluid levels present within mildly prominent loops of small bowel. This is nonspecific, but consider ileus or gastroenteritis. Nonspecific multifocal atelectasis. Disposition Summary Disposition Principal Diagnosis: 1. Hypoxemic respiratory failure, with improved oxygen requirement.Need pulmonary rehab. 2. Pleural effusion, status post thoracentesis. 3. Status post pericolic abscess with drainage and sigmoid colectomy with end colostomy. 4. Persistent leukocytosis, stable. Additional Diagnosis: 5. Thrombocytosis, likely reactive. 6. Anxiety. 7. SIERRA - Resolved. Discharge Disposition: SNF Discharge Instructions General Discharge Information Code Status: Full Code Patient's Diet: Regular Diet Patient's Activity: As tolerated. Follow-Up Instructions/Appts: please follow up with your PCP upon discharge. Please follow up with your surgeon upon discharge. please continue to take your medications as prescribed. Medications at Discharge Discharge Medications: Stop taking the following medications: Paroxetine HCl (Paxil) 10 MG TABLET ORAL DAILY Propranolol HCl (Propranolol HCl) 10 MG TABLET ORAL Every night Qty = 30 Sertraline HCl (Sertraline HCl) 100 MG TABLET ORAL DAILY Qty = 60 Hydroxyzine HCl (Hydroxyzine HCl) 25 MG TABLET ORAL TWICE DAILY Days = 30 Continue taking these medications: Clonazepam (Clonazepam) 0.5 MG TABLET 1 Tablet ORAL DAILY Qty = 30 Comments: NOT GIVEN DURING THIS ADMISSION Albuterol Sulfate (Ventolin Hfa) 90 MCG HFA.AER.AD 2 Puff Inhale through mouth EVERY 8 HOURS NEEDED as needed for COPD Qty = 18 Budesonide/Formoterol Fumarate (Symbicort 160-4.5 Mcg Inhaler) 160 MCG-4.5 MCG/ ACTUATION HFA.AER.AD 2 Puff Inhale through mouth TWICE DAILY Qty = 10 Baclofen (Baclofen) 10 MG TABLET 1 Tablet ORAL Qty = 10 Comments: NOT GIVEN DURING THIS ADMISSION Tramadol HCl (Tramadol HCl) 50 MG TABLET 1 Tablet ORAL 2 x Daily as needed as needed for UNKNOWN Qty = 90 Trazodone HCl (Trazodone HCl) 100 MG TABLET 2 Tablet ORAL Every night Qty = 60 Comments: Last Taken: 10/03/16 Time: 2100 Start taking the following new medications: Gabapentin (Gabapentin) 300 MG CAPSULE 300 Milligram ORAL EVERY 8 HOURS as needed for ANXIETY/JITTERY/TREMOR/ INSOMNI Qty = 30 No Refills Instructions: . Comments: 100 MG Last Taken: 10/02/16 Time: 0730 Guaifenesin (Guaifenesin ER) 600 MG TAB.ER.12H 600 Milligram ORAL EVERY 12 HOURS as needed for cough Qty = 14 No Refills Instructions: . Comments: Last Taken: 10/04/16 Time: 0930 Magnesium Oxide (Magnesium Oxide) 400 MG TABLET 400 Milligram ORAL DAILY Qty = 15 No Refills Instructions: . Comments: Last Taken: 10/04/16 Time: 0930 Melatonin (Melatonin) 5 MG TABLET 10 Milligram ORAL AT BEDTIME Qty = 30 No Refills Instructions: . Comments: Last Taken: 10/03/16 Time: 2100 Metronidazole (Flagyl) 250 MG TABLET 500 Milligram ORAL EVERY 8 HOURS Qty = 15 No Refills Instructions: . Comments: Last Taken: 10/04/16 Time: 0500 Omeprazole (Omeprazole) 20 MG CAPSULE.DR 40 Milligram ORAL DAILY BEFORE BREAKFAST Qty = 30 No Refills Instructions: . Comments: Last Taken: 10/04/16 Time: 0500 Sertraline HCl (Zoloft) 100 MG TABLET 1 Tablet ORAL SEE INSTRUCTIONS Qty = 30 No Refills Instructions: take 1 and 1/2 pill everyday till 10/09/2016 take 2 pills each day from 10/10/2016. Comments: Last Taken: 10/04/16 Time: 0900 Albuterol Sulfate (Albuterol Sulfate) 2.5 MG/3 ML (0.083 %) VIAL.NEB 3 Milliliters Inhale through mouth EVERY 8 HOURS NEEDED as needed for SHORTNESS OF BREATH Qty = 10 No Refills Instructions: . Copies To: ALYCIA BAILEY,RAFAEL Coe; MARCELLO BAILEY,MARY ISBELL MD,SHA Attending MD Review Statement Documenting Attending: DENNY TENA MD Other Findings: Dr. Tena to sign. The patient was seen and discussed with house staff. Agree with the plan of care as outlined. OK to transfer to [facility] for acute rehab today.
--- NOTE | 2016-09-28 09:22 | NUR ---
PATIENT OOB TO CHAIR WITH RN AND MST, TOLERATED WELL. PHYSICAL THERAPY IN ROOM AT THIS TIME. PATIENT AMBULATING WITH ROLLING WALKER AND ASSIST.
--- NOTE | 2016-09-28 09:23 | NUR ---
COLOSTOMY BAG LEAKING NEAR BELLY BUTTON, APPLIANCE CHANGED. SKIN CARE PROVIDED, STOMA PASTE PLACED. LOWER ABDOMINAL DRESSING CHANGED, WET TO DRY. WILL MONITOR. CALL PLACED TO JOHANNA DARBYWRAPPER REWINDER TO ASSESS ? CHANGE IN OSTOMY SUPPLIES.
--- NOTE | 2016-09-28 09:32 | PN- CRCU ---
Subjective HPI/Critical Care Issues: The patient is awake and alert. She appears comfortable. She is sitting in a recliner and remains on high flow at 50%. Her urine output has significantly improved. The patient complains of anxiety. She is short of breath with minimal exertion. She also has an ongoing cough and has difficulty with expectoration. Overall she feels she is doing better. Objective Current Medications: Current Medications Sig/Ry Start time Last Medication Dose Route Stop Time Status Admin Albuterol Sulfate 3 ML EVERY 4 HRS/AWAKE 09/01 2000 AC 09/28 INH 0803 Albuterol Sulfate 3 ML Q4H PRN 08/27 1000 AC 08/28 INH 1309 Alteplase, 2 MG ONE ONE 09/27 1300 DC 09/27 Recombinant IV 09/27 1301 1444 Alteplase, 2 MG ONE ONE 09/27 1230 DC 09/27 Recombinant IV 09/27 1231 1442 Enoxaparin Sodium 40 MG DAILY 09/03 1000 AC 09/28 SC 0913 Furosemide 20 MG ONCE ONE 09/27 2245 DC 09/27 IV 09/27 2246 2258 Furosemide 20 MG ONCE ONE 09/27 1115 DC 09/27 IV 09/27 1116 1117 Guaifenesin 600 MG Q12 09/25 2200 AC 09/28 PO 0913 Lorazepam 1 MG Q3P PRN 09/26 0930 AC 09/27 PO 1201 Magnesium Oxide 400 MG DAILY 09/12 1000 AC 09/28 PO 0913 Melatonin 10 MG AT BEDTIME 09/27 2200 AC 09/27 PO 2157 Morphine Sulfate 2 MG Q6-PRN PRN 09/26 1000 AC 09/27 IV 1436 Pantoprazole Sodium 40 MG DAILY 09/25 1000 AC 09/28 IV 0913 Potassium Chloride 80 MEQ ONCE ONE 09/28 0900 UNVr 09/28 PO 09/28 0901 0913 Potassium Chloride 20 MEQ 2200 09/26 2200 AC 09/27 PO 2157 Propranolol HCl 10 MG 1800 09/21 1800 AC 09/27 PO 1803 Sertraline HCl 100 MG DAILY 09/27 1000 AC 09/28 PO 0913 Sertraline HCl 50 MG DAILY 09/07 1301 DC 09/26 PO 0924 Sodium Chloride 2 SPRAY Q4P PRN 09/24 2130 AC ANIL Trazodone HCl 200 MG AT BEDTIME 09/07 2200 AC 09/27 PO 2157 Vital Signs & I&O Last 24 Hrs of Vitals and I&O: Vital Signs Date Time Temp Pulse Resp B/P B/P Pulse O2 O2 Flow FiO2 Mean Ox Delivery Rate 09/28 0807 56 97 09/28 0804 96 Nasal 50% Cannula 09/28 0547 69 91 09/28 0400 93 Nasal 50% Cannula 09/28 0258 52 92 09/28 0028 52 93 09/28 0000 94 Nasal 50% Cannula 09/28 0000 97.3 54 24 105/62 94 50% 09/27 2141 87 95 09/27 2000 94 Nasal 50% Cannula 09/27 1803 66 114/65 09/27 1600 96 Nasal 50% Cannula 09/27 1600 98.6 63 22 102/68 96 Nasal 50% Cannula 09/27 1548 96 Nasal 50% Cannula 09/27 1200 100 Nasal 50% Cannula Intake & Output 09/28 1600 09/28 0800 09/28 0000 Intake Total 20 380 Output Total 740 245 Balance -720 135 Intake, IV 40 Intake, Oral 20 340 Output, Stool 30 60 Output, Urine 710 185 Exam General Appearance: no apparent distress, alert, awake, comfortable Head: atraumatic, normal appearance Neck: supple Respiratory: decreased breath sounds, rhonchi Cardiovascular: regular rate/rhythm Abdomen: normal bowel sounds, soft, non-tender Extremities: trace edema Skin: intact, warm/dry Results Last 24 Hrs of Lab Results: Laboratory Tests 09/28/16 0505: Anion Gap 6, Estimated GFR > 60, Glucose 79, Calcium 8.2 L, Phosphorus 4.5, Magnesium 1.7, Total Bilirubin 0.3, AST 15, ALT 25, Albumin 2.3 L, CBC w Diff NO MAN DIFF REQ, RBC 2.81 L, MCV 90.5, MCH 29.2, RDW 17.0 H, MPV 8.0, Gran % 75.8 H, Lymphocytes % 15.3 L, Monocytes % 7.0, Eosinophils % 1.6, Basophils % 0.3, Absolute Granulocytes 9.0 H, Absolute Lymphocytes 1.8, Absolute Monocytes 0.8 H, Absolute Eosinophils 0.2, Absolute Basophils 0, PUBS MCHC 32.3 L Diagnostic Data CXR Findings: Chest x-ray demonstrates improved bilateral aeration. Impression/Plan Impression/Plan Impression/Plan: 1. Hypoxemic respiratory failure, with improved oxygen requirement. 2. Pleural effusion, status post thoracentesis with pneumothorax. 3. Status post pericolic abscess with drainage and sigmoid colectomy with end colostomy. 4. Persistent leukocytosis, stable. 5. Thrombocytosis, likely reactive. 6. Anxiety. Recommendations: * Continue BiPAP and high flow oxygen as tolerated. * Replace electrolytes as necessary. * Wean oxygen down for saturations greater than 92%. * Continue TRC/nebs, pulmonary toilet. * Incentive spirometry. * Continue aspiration precautions. Advance diet when able. * Monitor off antibiotics as per ID. * Increase activity, out of bed to chair daily. * We'll follow psychiatry recommendations. * Try to avoid Ativan. * Continue DVT prophylaxis at all times. * Continue all supportive care. Code Status: Full Code
--- NOTE | 2016-09-28 10:37 | PN- Infect Dx ---
Subjective Subjective: Afebrile without complaints of pain. She does report anxiety. Objective Last 24 Hrs of Vital Signs/I&O Vital Signs Date Time Temp Pulse Resp B/P B/P Pulse O2 O2 Flow FiO2 Mean Ox Delivery Rate 09/28 0807 56 97 09/28 0804 96 Nasal 50% Cannula 09/28 0547 69 91 09/28 0400 93 Nasal 50% Cannula 09/28 0258 52 92 09/28 0028 52 93 09/28 0000 94 Nasal 50% Cannula 09/28 0000 97.3 54 24 105/62 94 50% 09/27 2141 87 95 09/27 2000 94 Nasal 50% Cannula 09/27 1803 66 114/65 09/27 1600 96 Nasal 50% Cannula 09/27 1600 98.6 63 22 102/68 96 Nasal 50% Cannula 09/27 1548 96 Nasal 50% Cannula 09/27 1200 100 Nasal 50% Cannula Intake & Output 09/28 1600 09/28 0800 09/28 0000 Intake Total 20 380 Output Total 740 245 Balance -720 135 Intake, IV 40 Intake, Oral 20 340 Output, Stool 30 60 Output, Urine 710 185 Physical Exam Other Physical Findings: She appears comfortable in no acute distress on high flow oxygen Lungs decreased breath sounds both bases Heart regular rhythm with no murmur Abdomen is soft, nontender with positive bowel sounds; liquid stool in the colostomy Extremities no cyanosis, clubbing or edema; PICC in the right upper extremity with no inflammation at the site Fulton catheter remains in place Results Last 24 Hours of Lab Results: Laboratory Tests 09/28 0505 Chemistry Sodium (137 - 145 mmol/L) 140 Potassium (3.5 - 5.1 mmol/L) 3.2 L Chloride (98 - 107 mmol/L) 102 Carbon Dioxide (22 - 30 mmol/L) 31 H Anion Gap (5 - 16) 6 BUN (7 - 17 mg/dL) 11 Creatinine (0.5 - 1.0 mg/dL) 0.6 Estimated GFR (>60 ml/min) > 60 Glucose (65 - 99 mg/dL) 79 Calcium (8.4 - 10.2 mg/dL) 8.2 L Phosphorus (2.5 - 4.5 mg/dL) 4.5 Magnesium (1.6 - 2.3 mg/dL) 1.7 Total Bilirubin (0.2 - 1.3 mg/dL) 0.3 AST (14 - 36 U/L) 15 ALT (9 - 52 U/L) 25 Albumin (3.5 - 5.0 g/dL) 2.3 L Hematology CBC w Diff NO MAN DIFF REQ WBC (4.8 - 10.8 /CUMM) 11.9 H RBC (4.20 - 5.40 /CUMM) 2.81 L Hgb (12.0 - 16.0 G/DL) 8.2 L Hct (37 - 47 %) 25.4 L MCV (81.0 - 99.0 FL) 90.5 MCH (27.0 - 31.0 PG) 29.2 RDW (11.5 - 14.5 %) 17.0 H Plt Count (130 - 400 /CUMM) 526 H MPV (7.4 - 10.4 FL) 8.0 Gran % (42.2 - 75.2 %) 75.8 H Lymphocytes % (20.5 - 51.1 %) 15.3 L Monocytes % (1.7 - 9.3 %) 7.0 Eosinophils % (0 - 5 %) 1.6 Basophils % (0.0 - 2.0 %) 0.3 Absolute Granulocytes (1.4 - 6.5 /CUMM) 9.0 H Absolute Lymphocytes (1.2 - 3.4 /CUMM) 1.8 Absolute Monocytes (0.10 - 0.60 /CUMM) 0.8 H Absolute Eosinophils (0.0 - 0.7 /CUMM) 0.2 Absolute Basophils (0.0 - 0.2 /CUMM) 0 PUBS MCHC (33.0 - 37.0 G/DL) 32.3 L Last 24 Hours of [place] Results: No recent cultures Assessment/Plan Impression: Doing well overall, though she remains on high flow oxygen, with temperatures remaining normal and white blood cell count now nearly normal off antibiotics now 33 days status post Granger's procedure for a perforated sigmoid colon, complicated by the development of a purulent right upper quadrant collection requiring drainage for nearly 3 weeks, with the catheter removed and antibiotics discontinued 1 week ago. Suggestion: 1. Further management of her fluid status per Medicine 2. Remove Fulton catheter 3. Continue to follow off antibiotics Will no longer follow at this time, but please call with any questions
--- NOTE | 2016-09-28 11:39 | NUR ---
COLOSTOMY BAG LEAKING. COPY AND [employer] ASSOCIATE JOHANNA AT BEDSIDE TO HELP CHANGE APPLIANCE. WILL MONITOR.
--- NOTE | 2016-09-28 11:56 | RADIOLOGY REPORT ---
EXAMINATION: XR PORTABLE CHEST CLINICAL INFORMATION: Still require high percentage of oxygen. Follow-up effusion. COMPARISON: Several prior chest x-rays, most recent of which is dated 09/25/2016. TECHNIQUE: Portable AP semierect view of the chest was obtained. FINDINGS: Right subclavian PICC line tip is in the mid SVC. No pneumothorax is seen. The cardiomediastinal silhouette is obscured by bilateral hazy opacities over the mid and lower lung, unchanged from prior exam and consistent with bilateral moderate size pleural effusions with associated bibasilar airspace disease, either related to atelectasis or pneumonia. The upper lobes remain clear. No evidence of pulmonary edema is seen. Bony structures are grossly unremarkable. IMPRESSION: 1. No change in positioning of right subclavian PICC line with tip in the mid SVC. 2. No change in bilateral bibasilar atelectasis or pneumonia with associated moderate sized layering pleural effusions.
--- NOTE | 2016-09-28 13:27 | PN- Psychiatry ---
Assessment/Plan Impression: Identifying Info: 60-year-old female with a history of PAULA and MDD treated at [facility] presents to [facility] emergency department on 08/25/2016 with altered mental status. Subsequently found to be septic and has had complicated hospital course. SUBJECTIVE Patient states mood today is "not good." Endorsing frustration due to her ostomy appliance which she has had problems with today. Discussed dosing of her Zoloft and verbalized need for slow titration to prevent GI distress and PETERSON. Endorsing anxiety and frustration she cannot receive ativan more often. Educated on role it can have in respiratory depression, she would be agreeable to alternate agent. Educated on risks and benefits of off label gabapentin use. Brief ROS Gait: Not observed Sleep: Poor but improved Appetite: Poor OBJECTIVE Mental Status Exam Presentation/Appearance: Calm. Cooperative with evaluation. Hospital garb. Orientation: x4 Sensorium: Awake and alert Eye contact: Fair Affect: Somewhat constructed, congruent Mood: "Not good" Depression: Endorses Anxiety: Endorses Thought Content: - Denies SI/HI, AH/VH, PI. States and also believes they will not kill themselves. - Denies Hopeless/Helpless Thoughts Thought Process: Linear Associations: Appropriate Speech: Soft & dysarthric Judgment: Fair Insight: Intact Cognition: Memory: Endorses issues, difficulty word finding noted Attention/Concentration: Grossly intact Fund of Knowledge: Adequate Abstractions: Did not assess MMSE: Did not assess ASSESSMENT 60-year-old female with continued anxiety and mood issues in the context of prolonged hospitalization. She has continued anxiety issues as well as respiratory issues, she would likely benefit from alternative PRN agent to Ativan while Zoloft begins to take effect. Diagnosis Generalized Anxiety Disorder Major Depressive Disorder Delirium due to infection, resolved A total of 30 minutes was spent with the patient with more than 50% of the time spent in counseling and/or coordination of care. Suggestion: 1. On 10/04/16 plan to increase sertraline to 150mg. 2. Consider gabapentin 100 mg PO TID PRN anxiety (off label use) as an alternative agent to Ativan. The patient may require a higher dose. Monitor for sedation and dizziness on this medication. 3. Patient continues to plan to follow-up with care post discharge. Thank you for including psychiatry in this case we'll continue to follow. Subjective Subjective: as above Objective Last 24 Hrs of Vital Signs/I&O Current Medications Sig/Ry Start time Last Medication Dose Route Stop Time Status Admin Albuterol Sulfate 3 ML EVERY 4 HRS/AWAKE 09/01 2000 AC 09/28 INH 1140 Albuterol Sulfate 3 ML Q4H PRN 08/27 1000 AC 08/28 INH 1309 Enoxaparin Sodium 40 MG DAILY 09/03 1000 AC 09/28 SC 0913 Furosemide 20 MG ONCE ONE 09/27 2245 DC 09/27 IV 09/27 2246 2258 Guaifenesin 600 MG Q12 09/25 220 AC 09/28 PO 0913 Lorazepam 1 MG Q3P PRN 09/26 0930 AC 09/27 PO 1201 Magnesium Oxide 400 MG DAILY 09/12 1000 AC 09/28 PO 0913 Melatonin 10 MG AT BEDTIME 09/27 2199 AC 09/27 PO 215 Morphine Sulfate 1 MG ONCE ONE 09/28 1145 DC 09/28 IV 09/28 1146 1143 Morphine Sulfate 2 MG Q6-PRN PRN 09/26 1000 DC 09/27 IV 1436 Omeprazole 40 MG DAILY AC 09/28 1144 AC PO Pantoprazole Sodium 40 MG DAILY 09/25 1000 DC 09/28 IV 0913 Potassium Chloride 80 MEQ ONCE ONE 09/28 0900 DC 09/28 PO 09/28 0901 0913 Potassium Chloride 20 MEQ 09/26 220 AC 09/27 PO 215 Propranolol HCl 10 MG 1800 09/21 1800 AC 09/27 PO 1803 Sertraline HCl 100 MG DAILY 09/27 1000 AC 09/28 PO 0913 Sodium Chloride 2 SPRAY Q4P PRN 09/24 2129 AC ANIL Trazodone HCl 200 MG AT BEDTIME 09/07 2199 AC 09/27 PO 215 Laboratory Tests 09/28/16 1100: Thyroglobulin Antibody Pending, Thyroid Peroxidase Ab Pending 09/28/16 0505: Anion Gap 6, Estimated GFR > 60, Glucose 79, Calcium 8.2 L, Phosphorus 4.5, Magnesium 1.7, Total Bilirubin 0.3, AST 15, ALT 25, Albumin 2.3 L, CBC w Diff NO MAN DIFF REQ, RBC 2.81 L, MCV 90.5, MCH 29.2, RDW 17.0 H, MPV 8.0, Gran % 75.8 H, Lymphocytes % 15.3 L, Monocytes % 7.0, Eosinophils % 1.6, Basophils % 0.3, Absolute Granulocytes 9.0 H, Absolute Lymphocytes 1.8, Absolute Monocytes 0.8 H, Absolute Eosinophils 0.2, Absolute Basophils 0, PUBS MCHC 32.3 L Vital Signs Date Time Temp Pulse Resp B/P B/P Pulse O2 O2 Flow FiO2 Mean Ox Delivery Rate 09/28 1200 94 Nasal 45% Cannula 09/28 1143 96 Nasal 45% Cannula 09/28 0807 56 97 09/28 0804 96 Nasal 50% Cannula 09/28 0800 97 Nasal 50% Cannula 09/28 0800 98.2 54 22 100/60 97 Nasal 50% Cannula 09/28 0547 69 91 09/28 0400 93 Nasal 50% Cannula 09/28 0258 52 92 09/28 0028 52 93 09/28 0000 94 Nasal 50% Cannula 09/28 0000 97.3 54 24 105/62 94 50% 09/27 2141 87 95 09/27 2000 94 Nasal 50% Cannula 09/27 1803 66 114/65 09/27 1600 96 Nasal 50% Cannula 09/27 1600 98.6 63 22 102/68 96 Nasal 50% Cannula 09/27 1548 96 Nasal 50% Cannula Intake & Output 09/28 1600 09/28 0800 09/28 0000 Intake Total 20 380 Output Total 740 245 Balance -720 135 Intake, IV 40 Intake, Oral 20 340 Output, Stool 30 60 Output, Urine 710 185
--- NOTE | 2016-09-28 14:28 | NUR ---
PATIENT ATE A WHOLE CUP OF BLUEBERRY YOGURT. EXPRESSESS CONCERN ABOUT HER COLOSTOMY BAG. ENCOURAGED PATIENT TO KEEP EATING EVEN THO HER BAG MIGHT LEAK
--- NOTE | 2016-09-28 15:04 | NUR ---
Have met with patients sister Maude, who is also POA for this patient several times. Maude has been working diligently on gathering appropriate paperwork for a T-19. I expect that there will be significant information for submission to DSS on 09/30/16. Case discussed with case managemet in department huddle. Follow.
[2016-09-28 16:00] VITALS: BP 110/40
--- NOTE | 2016-09-28 16:00 | NUR ---
ASSUMED CARE OF PATIENT. PATIENT ALERT AND ORIENTED, SMILING WITH GOOD COLOR TO CHEECKS AND GOOD SPIRITS. MOVING ALL EXTREMITIES WITH IMPROVING STRENGTH. MONITOR NSR WITH REGULAR HEART SOUNDS, LUNGS WITH SCATTERED RHONCHI DIMINISHED AT BASES BUT OXYGEN DEMAND DECREASING AND DOES NOT APPEAR SOB AT REST. HI FLOW OXYGEN AT 45% VIA NASAL CANULA. BELLY SOFT AND TENDER MIDLINE ALONG DRESSING SITE. COLOSTOMY INTACT, NO DRAINAGE OR LEAKING AT THIS TIME. GENERALIZED 1+ EDEMA. TOBAR INTACT DRAINING WELL. BUTTOCKS RED BUT BLANCHES. BARRIER CREAM TO COCCYX.
[2016-09-29] VITALS: BP 110/60
--- NOTE | 2016-09-29 00:11 | NUR ---
PT AWAKE,ALERT AND ORIENTED. DENIES PAIN AT THIS TIME. ON 45% HIGH FLOW O2, SATURATION 93%. LUNGS SOUND CLEAR. COLOSTOMY INTACT, PINK. ABDOMEN SOFFT, NORMOACTIVE BS. TOBAR IN PLACE, ADEQUATE UO AT THIS TIME.
[2016-09-29 04:14] LABS: ABSOLUTE BASOPHIL COUNT 0 /CUMM (0.0-0.2); ABSOLUTE EOSINOPHIL COUNT 0.2 /CUMM (0.0-0.7); ABSOLUTE GRANULOCYTE CT 8.1 /CUMM (1.4-6.5); ABSOLUTE LYMPH COUNT 1.7 /CUMM (1.2-3.4); ABSOLUTE MONOCYTE COUNT 0.7 /CUMM (0.10-0.60); BASOPHIL % 0.4 % (0.0-2.0); EOSINOPHIL % 1.6 % (0-5); GRANULOCYTE % 75.5 % (42.2-75.2); HEMATOCRIT 24.2 % (37-47); MEAN CORPUSCULAR HGB 28.8 PG (27.0-31.0); MEAN PLATELET VOLUME 7.9 FL (7.4-10.4); PLATELET COUNT 532 /CUMM (130-400); RBC DISTRIBUTION WIDTH 17.4 % (11.5-14.5); RED BLOOD CELL CT 2.69 /CUMM (4.20-5.40); WHITE BLOOD CELL COUNT 10.7 /CUMM (4.8-10.8)
--- NOTE | 2016-09-29 07:31 | PN- Resident CRCU ---
Subjective HPI/CRCU Issues: Afebrile, hemodynamically stable, and mildly bradycardic. This morning patient is saturating lower 90s on 50% percent of high flow NC. Patient reported insomnia yesterday which she think most likely secondary to anxiety. 24 Hour Events: Intake 1210 and output 1465 Mild bradycardia Stable blood pressure Objective Vital Signs & I&O Last 8 Hrs of Vitals and I&O: Vital Signs Date Time Temp Pulse Resp B/P B/P Pulse O2 O2 Flow FiO2 Mean Ox Delivery Rate 09/29 0602 91 Nasal 45% Cannula 09/29 0400 93 Nasal 45% Cannula 09/29 0000 93 Nasal 45% Cannula 09/29 0000 97.9 55 18 110/60 93 Nasal 45% Cannula 09/28 2000 92 Nasal 45% Cannula 09/28 1827 60 19 115/57 09/28 1636 94 Nasal 45% Cannula 09/28 1600 94 Nasal 45% Cannula 09/28 1600 98.6 61 22 110/40 94 Nasal 45% Cannula 09/28 1200 94 Nasal 45% Cannula 09/28 1143 96 Nasal 45% Cannula 09/28 0807 56 97 09/28 0804 96 Nasal 50% Cannula 09/28 0800 97 Nasal 50% Cannula 09/28 0800 98.2 54 22 100/60 97 Nasal 50% Cannula Intake & Output 09/29 0800 09/29 0000 09/28 1600 Intake Total 100 480 630 Output Total 290 950 225 Balance -190 -470 405 Intake, IV 30 Intake, Oral 100 480 600 Output, Stool 75 Output, Urine 290 950 150 Intake & Output 09/29 0800 Intake Total 100 Output Total 290 Balance -190 Intake, Oral 100 Output, Urine 290 Exam General Appearance: well developed/nourished, no apparent distress, alert, awake , comfortable Head: atraumatic, normal appearance Respiratory: normal breath sounds, chest non-tender, no respiratory distress, quiet respiration, lungs clear Gastrointestinal: normal bowel sounds, soft, non-tender Extremities: normal inspection, no edema Weaning Parameters NIF: 32 Minute Volume: 11.3 Resp rate: 20 Vt: 558 Heart Rate: 80 Weaning Schedule Minute Volume: 8.4 Resp Rate: 23 Vt: 350 Heart Rate: 80 End Time: 1035 Minute Volume: 17.5 Resp Rate: 40 Vt: 435 Heart Rate: 95 Start Time: 1100 Minute Volume: 7.9 Resp Rate: 25 Vt: 388 Heart Rate: 86 End Time: 1235 Minute Volume: 8.8 Resp Rate: 37 Vt: 280 Heart Rate: 89 Current Medications: Current Medications Sig/Ry Start time Last Medication Dose Route Stop Time Status Admin Albuterol Sulfate 3 ML EVERY 4 HRS/AWAKE 09/01 2000 AC 09/28 INH 2140 Albuterol Sulfate 3 ML Q4H PRN 08/27 1000 AC 08/28 INH 1309 Enoxaparin Sodium 40 MG DAILY 09/03 1000 AC 09/28 SC 0913 Furosemide 20 MG ONCE ONE 09/28 1430 DC 09/28 IV 09/28 1431 1422 Gabapentin 100 MG Q8 PRN 09/29 0745 AC PO Gabapentin 100 MG Q8 PRN 09/28 2100 AC PO Guaifenesin 600 MG Q12 09/25 2200 AC 09/28 PO 211 Lorazepam 1 MG Q3P PRN 09/26 0930 AC 09/28 PO 2237 Magnesium Oxide 400 MG BID 09/29 1000 AC PO 09/29 220 Magnesium Oxide 400 MG DAILY 09/12 1000 AC 09/28 PO 0913 Melatonin 10 MG AT BEDTIME 09/27 2200 AC 09/28 PO 2117 Morphine Sulfate 1 MG ONCE ONE 09/28 1145 DC 09/28 IV 09/28 1146 1143 Morphine Sulfate 2 MG Q6-PRN PRN 09/26 1000 DC 09/27 IV 1436 Omeprazole 40 MG DAILY AC 09/28 1144 AC 09/29 PO 0601 Pantoprazole Sodium 40 MG DAILY 09/25 1000 DC 09/28 IV 0913 Potassium Chloride 20 MEQ ONCE ONE 09/29 0745 DC PO 09/29 0746 Potassium Chloride 80 MEQ ONCE ONE 09/28 0900 DC 09/28 PO 09/28 0901 0913 Potassium Chloride 20 MEQ 2200 09/26 2200 AC 09/28 PO 211 Propranolol HCl 10 MG 1800 09/21 1800 AC 09/28 PO 1827 Sertraline HCl 100 MG DAILY 09/27 1000 AC 09/28 PO 0913 Sodium Chloride 2 SPRAY Q4P PRN 09/24 2130 AC ANIL Trazodone HCl 200 MG AT BEDTIME 09/07 2200 AC 09/28 PO 211 Impression/Plan Impression/Problem List Impression: Ms. Camacho is a 60 year old female with H anxiety, depression, COPD , prior episode of severe clostridium difficile infection in 2016, tobacco abuse and gastritis who presented to the [place] ED after one week of altered mental status, decreased oral intake. She was found to be hypotensive, febrile and altered while at [place] [facility]. she was diagnosed with peritonitis 2/2 perforated sigmoid colon with abscess formation, S/P Harmann's procedure with Dr. Armendariz. Lower respiratory culture grew pseudomonas (resistant to zosyn) and culture from OR grew E.Coli, alpha/beta strep and brandon. She was diagnosed with hospital- acquired pneumonia and was placed on IV fluconazole and IV meropenem. Now patient is off Abx. Since extubation patient has been alternating between high flow oxygen and BiPAP, she still requiring high oxygen 60s to 70s percent. Neurological * Alert and oriented X3 with no active neurological issue except feeling anxious * Continue trazodone and melatonin 10 mg at bedtime * Continue propranolol 10 mg at bedtime * Continue Sertraline at 100 mg daily, psych suggested increase dose to 150 mg on 10/04/16. * We'll start Gabapentin 100 mg PO TID PRN anxiety (off label use) * We will avoid Ativan as possible. If needed evaluate respiratory status before giving Ativan PO 1mg. Cardiovascular * Sinus tachycardia with T wave changes on admission(resolved). * ACS was excluded and Echo did implement any pathology. * Continue propranolol 10 mg at bedtime, even though patient has a bradycardia cardiology recommended continuing propranolol. * We will follow cardiology recommendation Respiratory * Patient was intubated for Ho's procedure, patient remained intubated until 09/15/16. * thoracentesis on 09/02/16 and again on 09/13/16. * This morning pt is saturating lower 90s on 50% high glow NC. * We will use incentive spirometry as possible * TRC/Nebs * Aspiration precautions Renal * Had SIERRA on presentation Likely prerenal in the setting of severe sepsis. Kidney function is back to normal after IV hydration. * Patient overall have a positive balance * Yesterday around 200 negative balance * We'll Continue strict I/Os * We will keep 1 L negative balance daily * Will receive 20 mg IV Lasix and repeat at night if not at target Fluids, Electrolytes, and Nutrition (FEN) * We'll replete potassium and magnesium to keep at goal * we'll Continue ground diet with thin liquid. Infectious Diseases * During this admission received IV meropenem and IV fluconazole as a treatment for peritonitis with or culture growing Escherichia coli and fungal infection. * During this admission same antibiotic mentioned above used to treat questionable aspiration pneumonia * WBCs: Improved to 10.7 * DC hope cath * CBC daily Hematology * Had total of 4 U PRBC since admission. * Stable H&H * Thrombocytosis today is 526 * Normocytic anemia with Serum iron 19(L), TIBC 208(L), ferritin 296(H). This point towards early stage anemia of chronic disease. B12 and folic acid within normal limits Endocrinology * 3 days ago TSH was found to be 10 with a normal T4 and low T3, repeated TSH showed improvement however still high. * Antibodies panel was negative. We will instruct patient to repeat thyroid function tests after 1 month FULL CODE DVT prophylaxis: ALPS + SC lovenox Ulcer prophylaxis: Pantoprazole Problem List: 1. Status post Ho's procedure Pain Ratin Tomorrow's Labs & Rationales: CBC and ICU bundle Plan DVT/Prophylaxis: mechanical, pharmacological Code Status: Full Code
[2016-09-29 08:00] VITALS: BP 118/64
--- NOTE | 2016-09-29 09:35 | PN- CRCU ---
Subjective HPI/Critical Care Issues: The patient is awake and alert. She reports feeling significantly improved. Her oxygen requirement is now down to 45%. She remains on high flow oxygen. No overnight events reported. Objective Current Medications: Current Medications Sig/Ry Start time Last Medication Dose Route Stop Time Status Admin Albuterol Sulfate 3 ML EVERY 4 HRS/AWAKE 09/01 2000 AC 09/29 INH 0817 Albuterol Sulfate 3 ML Q4H PRN 08/27 1000 AC 08/28 INH 1309 Enoxaparin Sodium 40 MG DAILY 09/03 1000 AC 09/28 SC 0913 Furosemide 20 MG ONCE ONE 09/28 1430 DC 09/28 IV 09/28 1431 1422 Gabapentin 100 MG Q8 PRN 09/29 0745 AC PO Gabapentin 100 MG Q8 PRN 09/28 2100 AC PO Guaifenesin 600 MG Q12 09/25 2200 AC 09/28 PO 2117 Lorazepam 1 MG Q3P PRN 09/26 0930 AC 09/28 PO 2237 Magnesium Oxide 400 MG BID 09/29 1000 AC PO 09/29 220 Magnesium Oxide 400 MG DAILY 09/12 1000 AC 09/28 PO 0913 Melatonin 10 MG AT BEDTIME 09/27 2200 AC 09/28 PO 2117 Morphine Sulfate 1 MG ONCE ONE 09/28 1145 DC 09/28 IV 09/28 1146 1143 Morphine Sulfate 2 MG Q6-PRN PRN 09/26 1000 DC 09/27 IV 1436 Omeprazole 40 MG DAILY AC 09/28 1144 AC 09/29 PO 0601 Pantoprazole Sodium 40 MG DAILY 09/25 1000 DC 09/28 IV 0913 Potassium Chloride 20 MEQ ONCE ONE 09/29 0745 DC PO 09/29 0746 Potassium Chloride 20 MEQ 2200 09/26 2200 AC 09/28 PO 2118 Propranolol HCl 10 MG 1800 09/21 1800 AC 09/28 PO 1827 Sertraline HCl 100 MG DAILY 09/27 1000 AC 09/28 PO 0913 Sodium Chloride 2 SPRAY Q4P PRN 09/24 2130 AC ANIL Trazodone HCl 200 MG AT BEDTIME 09/07 220 AC 09/28 PO 211 Vital Signs & I&O Last 24 Hrs of Vitals and I&O: Vital Signs Date Time Temp Pulse Resp B/P B/P Pulse O2 O2 Flow FiO2 Mean Ox Delivery Rate 09/29 0817 95 Nasal 45% Cannula 09/29 0800 98.8 58 20 118/64 95 Nasal 45% Cannula 09/29 0602 91 Nasal 45% Cannula 09/29 0400 93 Nasal 45% Cannula 09/29 0000 93 Nasal 45% Cannula 09/29 0000 97.9 55 18 110/60 93 Nasal 45% Cannula 09/28 2000 92 Nasal 45% Cannula 09/28 1827 60 19 115/57 09/28 1636 94 Nasal 45% Cannula 09/28 1600 94 Nasal 45% Cannula 09/28 1600 98.6 61 22 110/40 94 Nasal 45% Cannula 09/28 1200 94 Nasal 45% Cannula 09/28 1143 96 Nasal 45% Cannula Intake & Output 09/29 1600 09/29 0800 09/29 0000 Intake Total 100 480 Output Total 290 950 Balance -190 -470 Intake, Oral 100 480 Output, Urine 290 950 Exam General Appearance: no apparent distress, alert, awake, comfortable Head: atraumatic, normal appearance Neck: supple Respiratory: decreased breath sounds, rhonchi Cardiovascular: regular rate/rhythm Abdomen: normal bowel sounds, soft, non-tender Extremities: trace edema Skin: intact, warm/dry Impression/Plan Impression/Plan Impression/Plan: 1. Hypoxemic respiratory failure, with improved oxygen requirement. 2. Pleural effusion, status post thoracentesis. 3. Status post pericolic abscess with drainage and sigmoid colectomy with end colostomy. 4. Persistent leukocytosis, stable. 5. Thrombocytosis, likely reactive. 6. Anxiety. Recommendations: * Continue high flow oxygen as tolerated. BiPAP only if needed. * Replace electrolytes as necessary. * Wean oxygen down for saturations greater than 92%. * Continue TRC/nebs, pulmonary toilet. * Incentive spirometry. * Continue aspiration precautions. Advance diet when able. * Monitor off antibiotics as per ID. * Out of bed to chair daily. * Will follow psychiatry recommendations. Appreciate input. * Continue DVT prophylaxis at all times. * Discharge planning, consider transfer to [place]. * Continue all supportive care. Code Status: Full Code
[2016-09-29 16:00] VITALS: BP 104/60
--- NOTE | 2016-09-29 16:21 | NUR ---
Patient is awake, alert and oriented x's 3, able to follow commands and answer questions approp. NSR-SB on tele monitor, HR= 50-60's. SBP: 100-120's and pt denies chest pain. Currently on 40% high flow nasal cannula- Has not needed bi-pap for over 24 hours. Lungs clear and diminished- a non productive cough is noted. Abdomen is soft with + bowel sounds. Midline incision is healing well- lower aspect of wound is much improved with a 100% pale pink wound bed- scant amounts of serosangenous drainage- A new dressing was applied. Left sided colostomy with soft brown stool draining. Stoma is pink and intact. She is tolerating po well with a good appetite. [place] catheter was removed and she voided approx 150mls of clear yellow urine on the bedpan. Skin appears intact with trace BLE edema noted. Coccyx is red and blanchable and barrier cream was applied. She was OOB to chair with assist of 2. ANASTACIA PICC in place and site is WNL. Currently denies pain. Now a Gen Med hold in the ICU. [place] in to evaluate with plans to transfer in the next few days- Resting comfortably in bed with no complaints. Will continue to closely monitor patient.
[2016-09-29 20:00] VITALS: BP 104/60
[2016-09-29 22:30] VITALS: BP 130/70
[2016-09-30 05:36] LABS: ABSOLUTE BASOPHIL COUNT 0.1 /CUMM (0.0-0.2); ABSOLUTE EOSINOPHIL COUNT 0.1 /CUMM (0.0-0.7); ABSOLUTE GRANULOCYTE CT 9.9 /CUMM (1.4-6.5); ABSOLUTE LYMPH COUNT 1.7 /CUMM (1.2-3.4); ABSOLUTE MONOCYTE COUNT 0.8 /CUMM (0.10-0.60); BASOPHIL % 0.5 % (0.0-2.0); EOSINOPHIL % 0.9 % (0-5); HEMATOCRIT 25.5 % (37-47); MEAN CORPUSCULAR HGB CONC 32.6 G/DL (33.0-37.0); MEAN CORPUSCULAR VOLUME 89.2 FL (81.0-99.0); MEAN PLATELET VOLUME 7.7 FL (7.4-10.4); PLATELET COUNT 545 /CUMM (130-400); RBC DISTRIBUTION WIDTH 17.9 % (11.5-14.5); RED BLOOD CELL CT 2.85 /CUMM (4.20-5.40); WHITE BLOOD CELL COUNT 12.5 /CUMM (4.8-10.8)
--- NOTE | 2016-09-30 07:18 | PN- Resident CRCU ---
Subjective HPI/CRCU Issues: Afebrile, hemodynamically stable, saturating well on 40% high flow NC. No acute overnight reported. Patient is complaining of 6/10 bilateral lower abdomen pain that started overnight. The colostomy bag is filled with gas and watery diarrhea.. She denies nausea, vomiting, fever or chills Objective Vital Signs & I&O Last 8 Hrs of Vitals and I&O: Vital Signs Date Time Temp Pulse Resp B/P B/P Pulse O2 O2 Flow FiO2 Mean Ox Delivery Rate 09/30 0032 94 Nasal 40% Cannula 09/30 0000 94 Nasal 40% Cannula 09/29 2230 99.5 60 20 130/70 94 Nasal 40% Cannula 09/29 2000 93 Nasal 40% Cannula 09/29 2000 99.6 61 20 104/60 93 Nasal 40% Cannula 09/29 1804 58 120/60 09/29 1624 95 Nasal 40% Cannula 09/29 1600 99.5 61 18 104/60 93 Nasal 40% Cannula 09/29 1600 93 Nasal 40% Cannula 09/29 1200 96 Nasal 40% Cannula 09/29 0817 95 Nasal 45% Cannula 09/29 0800 98.8 58 20 118/64 95 Nasal 45% Cannula 09/29 0800 95 Nasal 45% Cannula Intake & Output 09/30 0800 09/30 0000 09/29 1600 Intake Total 120 400 Output Total 50 210 Balance 70 190 Intake, Oral 120 400 Number 2 Bowel Movements Output, Stool 50 Output, Urine 210 Exam General Appearance: no apparent distress, alert, awake, comfortable Head: atraumatic, normal appearance Respiratory: normal breath sounds, chest non-tender, no respiratory distress, quiet respiration, lungs clear Cardiovascular: regular rate/rhythm Gastrointestinal: soft, non-tender Extremities: normal inspection, no edema Weaning Parameters NIF: 32 Minute Volume: 11.3 Resp rate: 20 Vt: 558 Heart Rate: 80 Weaning Schedule Minute Volume: 8.4 Resp Rate: 23 Vt: 350 Heart Rate: 80 End Time: 1035 Minute Volume: 17.5 Resp Rate: 40 Vt: 435 Heart Rate: 95 Start Time: 1100 Minute Volume: 7.9 Resp Rate: 25 Vt: 388 Heart Rate: 86 End Time: 1235 Minute Volume: 8.8 Resp Rate: 37 Vt: 280 Heart Rate: 89 Current Medications: Current Medications Sig/Ry Start time Last Medication Dose Route Stop Time Status Admin Acetaminophen 650 MG ONCE ONE 09/29 1015 DC 09/29 PO 09/29 1016 1008 Albuterol Sulfate 3 ML EVERY 4 HRS/AWAKE 09/01 2000 AC 09/29 INH 2114 Albuterol Sulfate 3 ML Q4H PRN 08/27 1000 AC 08/28 INH 1309 Enoxaparin Sodium 40 MG DAILY 09/03 1000 AC 09/29 SC 1010 Gabapentin 100 MG Q8 PRN 09/29 0745 DC PO Gabapentin 100 MG Q8 PRN 09/28 2100 AC PO Guaifenesin 600 MG Q12 09/25 2200 AC 09/29 PO 2154 Lorazepam 1 MG Q3P PRN 09/26 0930 DC 09/28 PO 09/29 2000 2237 Magnesium Oxide 400 MG ONE ONE 09/30 0730 DC PO 09/30 0731 Magnesium Oxide 400 MG BID 09/29 1000 DC 09/29 PO 09/29 2201 2144 Magnesium Oxide 400 MG DAILY 09/12 1000 AC 09/29 PO 1009 Melatonin 10 MG AT BEDTIME 09/27 2200 AC 09/29 PO 2145 Omeprazole 40 MG DAILY AC 09/28 1144 AC 09/29 PO 0601 Potassium Chloride 20 MEQ ONCE ONE 09/30 0730 DC PO 09/30 0731 Potassium Chloride 20 MEQ ONCE ONE 09/30 0730 UNVr PO 09/30 0731 Potassium Chloride 20 MEQ ONCE ONE 09/29 0745 DC 09/29 PO 09/29 0746 1010 Potassium Chloride 20 MEQ 2200 09/26 2200 AC 09/29 PO 2143 Propranolol HCl 10 MG 1800 09/21 1800 AC 09/29 PO 1804 Sertraline HCl 100 MG DAILY 09/27 1000 AC 09/29 PO 1009 Sodium Chloride 2 SPRAY Q4P PRN 09/24 2130 AC ANIL Trazodone HCl 200 MG AT BEDTIME 09/07 2200 AC 09/29 PO 2144 Impression/Plan Impression/Problem List Impression: Ms. Camacho is a 60 year old female with PMH anxiety, depression, COPD , prior episode of severe clostridium difficile infection in 2016, tobacco abuse and gastritis who presented to the [facility] after one week of altered mental status, decreased oral intake. She was found to be hypotensive, febrile and altered while at [facility]. she was diagnosed with peritonitis 2/2 perforated sigmoid colon with abscess formation, S/P Harmann's procedure with Dr. Armendariz. Lower respiratory culture grew pseudomonas (resistant to zosyn) and culture from OR grew E.Coli, alpha/beta strep and brandon. She was diagnosed with hospital- acquired pneumonia and was placed on IV fluconazole and IV meropenem. Now patient is off Abx. Since extubation patient has been alternating between high flow oxygen and BiPAP, she still requiring high oxygen 40s to 70s percent. Neurological * Continue trazodone and melatonin 10 mg at bedtime * Continue propranolol 10 mg at bedtime * Continue Sertraline at 100 mg daily, psych suggested increase dose to 150 mg on 10/04/16. * Continue Gabapentin 100 mg PO TID PRN anxiety (off label use) * We will avoid Ativan as possible. If needed evaluate respiratory status before giving Ativan PO 1mg. Cardiovascular * Sinus tachycardia with T wave changes on admission(resolved). * ACS was excluded and Echo did implement any pathology. * Continue propranolol 10 mg at bedtime, even though patient has a bradycardia cardiology recommended continuing propranolol. * We will follow cardiology recommendation Respiratory * Patient was intubated for Ho's procedure, patient remained intubated until 09/15/16. * thoracentesis on 09/02/16 and again on 09/13/16. * This morning pt is saturating lower 90s on 40% high glow NC. * We will use incentive spirometry as possible * TRC/Nebs * Aspiration precautions Renal * Had SIERRA on presentation Likely prerenal in the setting of severe sepsis. Kidney function is back to normal after IV hydration. * Patient overall have a positive balance * We'll Continue strict I/Os * We will keep 1 L negative balance daily, We may use IV Lasix to accomplish goal. Fluids, Electrolytes, and Nutrition (FEN) * We'll replete potassium and magnesium to keep at goal * we'll Continue ground diet with thin liquid. Infectious Diseases * During this admission received IV meropenem and IV fluconazole as a treatment for peritonitis with or culture growing Escherichia coli and fungal infection. * During this admission same antibiotic mentioned above used to treat questionable aspiration pneumonia * WBCs: Is up to 12 from 10.7 * This morning patient is complaining of lower abdominal pain and colostomy bag is filled with gas and watery stool. We will send for C. difficile * CBC daily Hematology * Had total of 4 U PRBC since admission. * Stable H&H * Thrombocytosis today is 545 * Normocytic anemia with Serum iron 19(L), TIBC 208(L), ferritin 296(H). This point towards early stage anemia of chronic disease. B12 and folic acid within normal limits Endocrinology * 3 days ago TSH was found to be 10 with a normal T4 and low T3, repeated TSH showed improvement however still high. * Antibodies panel was negative. We will instruct patient to repeat thyroid function tests after 1 month FULL CODE DVT prophylaxis: ALPS + SC lovenox Ulcer prophylaxis: Pantoprazole Problem List: 1. Status post Ho's procedure Pain Ratin Tomorrow's Labs & Rationales: cbc and bep Plan DVT/Prophylaxis: mechanical, pharmacological Code Status: Full Code
[2016-09-30 08:00] VITALS: BP 118/74
--- NOTE | 2016-09-30 09:10 | PN- Pulmonary ---
Subjective HPI/Critical Care Issues: The patient is awake and alert. She reports feeling abdominal discomfort and has an increased amount of watery stool in her colostomy bag. She denies any bleeding. She feels less short of breath, noting her oxygen requirement continues to improve. Objective Current Medications: Current Medications Sig/Ry Start time Last Medication Dose Route Stop Time Status Admin Acetaminophen 650 MG ONCE ONE 09/29 1015 DC 09/29 PO 09/29 1016 1008 Albuterol Sulfate 3 ML EVERY 4 HRS/AWAKE 09/01 2000 AC 09/30 INH 0840 Albuterol Sulfate 3 ML Q4H PRN 08/27 1000 AC 08/28 INH 1309 Enoxaparin Sodium 40 MG DAILY 09/03 1000 AC 09/29 SC 1010 Gabapentin 100 MG Q8 PRN 09/29 0745 DC PO Gabapentin 100 MG Q8 PRN 09/28 2100 AC PO Guaifenesin 600 MG Q12 09/25 2200 AC 09/29 PO 2154 Lorazepam 1 MG Q3P PRN 09/26 0930 DC 09/28 PO 09/29 2000 2237 Magnesium Oxide 400 MG ONE ONE 09/30 0730 DC PO 09/30 0731 Magnesium Oxide 400 MG BID 09/29 1000 DC 09/29 PO 09/29 2201 2144 Magnesium Oxide 400 MG DAILY 09/12 1000 AC 09/29 PO 1009 Melatonin 10 MG AT BEDTIME 09/27 2200 AC 09/29 PO 2145 Omeprazole 40 MG DAILY AC 09/28 1144 AC 09/30 PO 0757 Potassium Chloride 20 MEQ ONCE ONE 09/30 0730 DC PO 09/30 0731 Potassium Chloride 20 MEQ ONCE ONE 09/30 0730 DC PO 09/30 0731 Potassium Chloride 20 MEQ 2200 09/26 2200 AC 09/29 PO 2143 Propranolol HCl 10 MG 1800 09/21 1800 AC 09/29 PO 1804 Sertraline HCl 100 MG DAILY 09/27 1000 AC 09/29 PO 1009 Sodium Chloride 2 SPRAY Q4P PRN 09/24 2130 AC ANIL Trazodone HCl 200 MG AT BEDTIME 09/07 2200 AC 09/29 PO 2144 Vital Signs & I&O Last 24 Hrs of Vitals and I&O: Vital Signs Date Time Temp Pulse Resp B/P B/P Pulse O2 O2 Flow FiO2 Mean Ox Delivery Rate 09/30 0400 Nasal 40% Cannula 09/30 0032 94 Nasal 40% Cannula 09/30 0000 94 Nasal 40% Cannula 09/29 2230 99.5 60 20 130/70 94 Nasal 40% Cannula 09/30 1999 93 Nasal 40% Cannula 09/30 1999 99.6 61 20 104/60 93 Nasal 40% Cannula 09/29 1804 58 120/60 09/29 1624 95 Nasal 40% Cannula 09/29 1600 99.5 61 18 104/60 93 Nasal 40% Cannula 09/29 1600 93 Nasal 40% Cannula 09/29 1200 96 Nasal 40% Cannula Intake & Output 09/30 1600 09/30 0800 09/30 0000 Intake Total 100 120 Output Total 750 50 Balance -650 70 Intake, Oral 100 120 Output, Stool 250 50 Output, Urine 500 Exam General Appearance: no apparent distress, alert, awake, comfortable Head: atraumatic, normal appearance Neck: supple Respiratory: decreased breath sounds, rhonchi Cardiovascular: regular rate/rhythm Abdomen: normal bowel sounds, soft, non-tender Extremities: trace edema Skin: intact, warm/dry Impression/Plan Impression/Plan Impression/Plan: 1. Hypoxemic respiratory failure, with improved oxygen requirement. 2. Pleural effusion, status post thoracentesis. 3. Status post pericolic abscess with drainage and sigmoid colectomy with end colostomy. 4. Persistent leukocytosis, stable. 5. Thrombocytosis, likely reactive. 6. Anxiety. 7. Abdominal pain. Recommendations: * Check stool for C. difficile. * Check a CT scan of the abdomen to rule out any new process. * We will discuss abdominal pain with surgery. * Continue high flow oxygen as tolerated. BiPAP only if needed. * Replace electrolytes as necessary. * Wean oxygen down for saturations greater than 92%. * Continue TRC/nebs, pulmonary toilet. * Incentive spirometry. * Monitor off antibiotics as per ID. * Out of bed to chair daily. * Will follow psychiatry recommendations. Appreciate input. * Continue DVT prophylaxis at all times. * Discharge planning, will transfer to [place] if abdominal pain workup is negative. * Continue all supportive care.
--- NOTE | 2016-09-30 09:51 | CT SCAN REPORT ---
EXAMINATION: CT ABDOMEN AND PELVIS WITHOUT CONTRAST CLINICAL INFORMATION: 60-year-old female status post recent surgery (recent Granger's procedure) presents with lower abdominal pain. Evaluate for dilated bowel and abscess. COMPARISON: CT abdomen and pelvis from 09/20/2016 TECHNIQUE: Multidetector volumetric imaging was performed from the superior aspect of the liver through the pubic symphysis. Sagittal and coronal reformatted images were obtained on the technologist's workstation. DLP: 308 mGy-cm FINDINGS: LUNG BASES: Moderate right pleural effusion is unchanged in size. The right lower lobe is nearly completely collapsed. Left pleural effusion, which is slightly larger than the right effusion, is similar in appearance compared to 09/20/2016 and there is persistent compressive atelectasis of the left lower lobe and mild atelectasis of the inferior lingula. LIVER, GALLBLADDER, AND BILIARY TREE: Again noted are hepatic cysts. Gallbladder is underdistended. The right perihepatic drainage catheter has been removed. Loculated fluid along the right hepatic surface has increased; the fluid in this area is 1.8 cm transverse, compared to approximately 1 cm on 09/20/2016 (as measured on image 23, series 2). A small amount of fluid again observed extending inferiorly around the liver and into Morison's pouch. PANCREAS: No acute findings within the pancreas. SPLEEN: Spleen is normal in size. There are somewhat wedge-shaped areas of hypoattenuation from previously noted splenic infarcts. ADRENAL GLANDS: Unremarkable. KIDNEYS AND URETERS: Kidneys are normal in size. No nephrolithiasis or hydroureteronephrosis. BLADDER: Unremarkable. GASTROINTESTINAL TRACT AND PERITONEAL CAVITY: Again noted is the descending colostomy in the left abdominal wall and Granger's pouch in the pelvis. No dilated loops of bowel. The lack of distention of bowel likely accounts for the apparent generalized bowel wall thickening. There is no overt submucosal edema of bowel wall. There is persistent mesenteric edema. A trace amount of ascitic fluid extends along paracolic gutters. No new fluid collections are identified in the abdomen or pelvis. No pneumoperitoneum. ABDOMINAL WALL: Persistent subcutaneous tissue edema. Persistent, small amount of fluid in the midline abdominal wound. LYMPH NODES: No enlarging lymph nodes are detected in the abdomen or pelvis. VASCULAR: Atherosclerotic calcification of the aorta and iliac arteries without aneurysm. PELVIC VISCERA: Again noted is presacral soft tissue edema. No newly developing fluid collections are identified. OSSEOUS STRUCTURES: No new skeletal abnormalities. Within the lumbar spine, findings include L4-L5 facet arthropathy and severe degenerative disc disease with grade 2 anterolisthesis of L4 on L5. IMPRESSION: 1. Bilateral pleural effusions and lower lobe atelectasis/collapse remain similar in appearance compared to 09/20/2016. 2. Loculated perihepatic fluid has increased compared to 09/20/2016 after removal of the perihepatic drainage catheter. No new fluid collections are identified in the abdomen or pelvis. 3. Anasarca. 4. No evidence of bowel obstruction or other significant interval change.
--- NOTE | 2016-09-30 14:00 | NUR ---
Patient is awake, alert and oriented x;s 3, able to follow commands and answer questions appropriately. She is a General Medicine hold but remains in the ICU. HR= 50-60's. SBP: 110's and she denies chest pain. She has been on 5L nc, O2 sats remained stable at 92-94% Lungs are clear and diminished at the bases. O2 sats drop slightly to 89% upon exertion. A cdiff culture was sent at 0745 this morning and was called back positive. She was placed on eneteric precautions. She c/o intermittent pain and cramping to her abdomen and was medicated with Tylenol. A CT abdomen/pelvis was completed and this RN accompanied pt. She tolerated procedure well and all vitals remained stable. Left sided colostomy in place. Stool is light brown and watery. A healing midline incision is noted and the dressing was changed- scant amounts of serosangenous drainage is noted. She is voiding clear yellow urine on the bedpan. No areas of pressure injury currently noted. She was OOB with PT and ambulated down the hallway. ANASTACIA PICC line in place and site is WNL. Dressing was changed today including the STAT lock and the BIO patch. [facility] has accpeted the patient however no beds are available at this time. Patient is currently resting comfortably in bed with no complaints. Will continue to closely monitor patient.
--- NOTE | 2016-09-30 15:25 | PN- Infect Dx ---
Subjective Subjective: Afebrile. She complained of severe abdominal pain earlier today and was noted to have liquid stool in the colostomy, which was found to be positive for C. difficile. She otherwise feels improved with no respiratory complaints. Objective Last 24 Hrs of Vital Signs/I&O Vital Signs Date Time Temp Pulse Resp B/P B/P Pulse O2 O2 Flow FiO2 Mean Ox Delivery Rate 09/30 0934 92 Nasal 5.0L Cannula 09/30 08 98.7 61 20 118/74 92 Nasal 40% Cannula 09/30 0800 92 Nasal 40% Cannula 09/30 0400 Nasal 40% Cannula 09/30 0032 94 Nasal 40% Cannula 09/30 0000 94 Nasal 40% Cannula 09/29 2230 99.5 60 20 130/70 94 Nasal 40% Cannula 09/29 2000 93 Nasal 40% Cannula 09/30 1999 99.6 61 20 104/60 93 Nasal 40% Cannula 09/29 1804 58 120/60 09/29 1624 95 Nasal 40% Cannula 09/29 1600 99.5 61 18 104/60 93 Nasal 40% Cannula 09/29 1600 93 Nasal 40% Cannula Intake & Output 09/30 1600 09/30 0800 09/30 0000 Intake Total 600 100 120 Output Total 350 750 50 Balance 250 -650 70 Intake, IV 120 Intake, Oral 480 100 120 Number 550 Bowel Movements Output, Stool 250 50 Output, Urine 350 500 Physical Exam Other Physical Findings: She looks well in no acute distress, now on nasal oxygen Lungs are clear Heart regular rhythm with no murmur Abdomen is soft, tender on the left, with positive bowel sounds; liquid stool in the colostomy Extremities no cyanosis, clubbing or edema; PICC in the right upper extremity with no inflammation at the site Results Last 24 Hours of Lab Results: Laboratory Tests 09/30 0457 Chemistry Sodium (137 - 145 mmol/L) 139 Potassium (3.5 - 5.1 mmol/L) 3.8 Chloride (98 - 107 mmol/L) 103 Carbon Dioxide (22 - 30 mmol/L) 29 Anion Gap (5 - 16) 7 BUN (7 - 17 mg/dL) 8 Creatinine (0.5 - 1.0 mg/dL) 0.6 Estimated GFR (>60 ml/min) > 60 BUN/Creatinine Ratio (7 - 25 %) 13.3 Phosphorus (2.5 - 4.5 mg/dL) 4.3 Magnesium (1.6 - 2.3 mg/dL) 1.7 Hematology CBC w Diff NO MAN DIFF REQ WBC (4.8 - 10.8 /CUMM) 12.5 H RBC (4.20 - 5.40 /CUMM) 2.85 L Hgb (12.0 - 16.0 G/DL) 8.3 L Hct (37 - 47 %) 25.5 L MCV (81.0 - 99.0 FL) 89.2 MCH (27.0 - 31.0 PG) 29.0 RDW (11.5 - 14.5 %) 17.9 H Plt Count (130 - 400 /CUMM) 545 H MPV (7.4 - 10.4 FL) 7.7 Gran % (42.2 - 75.2 %) 79.0 H Lymphocytes % (20.5 - 51.1 %) 13.4 L Monocytes % (1.7 - 9.3 %) 6.2 Eosinophils % (0 - 5 %) 0.9 Basophils % (0.0 - 2.0 %) 0.5 Absolute Granulocytes (1.4 - 6.5 /CUMM) 9.9 H Absolute Lymphocytes (1.2 - 3.4 /CUMM) 1.7 Absolute Monocytes (0.10 - 0.60 /CUMM) 0.8 H Absolute Eosinophils (0.0 - 0.7 /CUMM) 0.1 Absolute Basophils (0.0 - 0.2 /CUMM) 0.1 PUBS MCHC (33.0 - 37.0 G/DL) 32.6 L Last 24 Hours of [place] Results: Stool C. difficile September 30 positive Recent Imaging Studies: CT of the abdomen and pelvis September 30 moderate right pleural effusion unchanged, with nearly complete collapse of the right lower lobe; left pleural effusion persists with persistent compressive atelectasis of the left lower lobe and mild atelectasis of the inferior lingula; loculated fluid along the right hepatic surface has increased; no evidence of colitis Assessment/Plan Impression: Overall improved but with the development of abdominal pain, recurrent diarrhea and a slight increase in her white blood cell count today after normalizing yesterday, with stool for C. difficile now positive after several negative C. difficile toxin tests over the last several weeks. Her CT scan does not demonstrate colitis, but she will need to be treated for the positive C. difficile. The CT scan does reveal a slight increase in the right perihepatic loculated fluid, but as she has otherwise improved do not feel this should be pursued at this time. Her pleural effusions also persist but her respiratory status has overall improved. Suggestion: 1. Begin Flagyl 500 mg po every 8 hours
[2016-09-30 16:00] VITALS: BP 112/64
[2016-09-30 21:40] VITALS: BP 108/58
[2016-10-01 07:17] VITALS: BP 126/64
[2016-10-01 08:25] LABS: ABSOLUTE BASOPHIL COUNT 0 /CUMM (0.0-0.2); ABSOLUTE EOSINOPHIL COUNT 0.1 /CUMM (0.0-0.7); ABSOLUTE GRANULOCYTE CT 9.5 /CUMM (1.4-6.5); ABSOLUTE LYMPH COUNT 1.3 /CUMM (1.2-3.4); ABSOLUTE MONOCYTE COUNT 0.6 /CUMM (0.10-0.60); BASOPHIL % 0.3 % (0.0-2.0); EOSINOPHIL % 0.9 % (0-5); GRANULOCYTE % 82.5 % (42.2-75.2); HEMATOCRIT 26.3 % (37-47); MEAN CORPUSCULAR HGB 29.5 PG (27.0-31.0); MEAN CORPUSCULAR HGB CONC 32.9 G/DL (33.0-37.0); MEAN CORPUSCULAR VOLUME 89.8 FL (81.0-99.0); MEAN PLATELET VOLUME 8.2 FL (7.4-10.4); PLATELET COUNT 543 /CUMM (130-400); RBC DISTRIBUTION WIDTH 17.7 % (11.5-14.5); RED BLOOD CELL CT 2.93 /CUMM (4.20-5.40); WHITE BLOOD CELL COUNT 11.6 /CUMM (4.8-10.8)
--- NOTE | 2016-10-01 09:07 | PN- Housestaff ---
TARAS MORATAYA 10/01/16 0907: Subjective Follow-up For: Severe sepsis secondary to peritonitis from perforated sigmoid colon with abscess formation status post Ho's C. difficile diarrhea Complaints: pain scale (0-10) Subjective: Patient was seen and examined this morning. She is alert awake and oriented to time place and person. no acute events noticed overnight. She is a transfer from ICU after Granger's procedure. Colostomy bag-loose watery stool. Reports 4 out of 10 abdominal discomfort at the site of surgery. Denies any fever, chills. Vitals remained stable afebrile heart rate 74, respiratory rate 20, blood pressure 120/70, saturating at 90 at 5 L nasal cannula Review of Systems Constitutional: Reports: see HPI. Objective Last 24 Hrs of Vital Signs/I&O Vital Signs Date Time Temp Pulse Resp B/P B/P Pulse O2 O2 Flow FiO2 Mean Ox Delivery Rate 10/01 0810 92 Nasal 5.0L Cannula 10/01 0717 99.4 78 20 126/64 91 10/01 0000 92 Nasal 5.0L Cannula 09/30 2140 100.0 58 18 108/58 92 Nasal 5.0L Cannula 09/30 1810 64 118/64 09/30 1642 94 Nasal 5.0L Cannula 09/30 1600 97.9 61 20 112/64 93 Nasal 5.0L Cannula 09/30 1600 93 Nasal 5.0L Cannula Intake & Output 10/01 1600 10/01 0800 10/01 0000 Intake Total 120 250 Output Total 550 500 Balance -430 -250 Intake, Oral 120 250 Output, Stool 150 300 Output, Urine 400 200 Patient 55.792 kg Weight Weight Chair scale Measurement Method Physical Exam General Appearance: Alert, Oriented X3, Cooperative, No Acute Distress Skin: colostomy bag HEENT: Atraumatic, PERRLA, EOMI, Mucous Membr. moist/pink Neck: Supple, No JVD Lymphatic: Cervical nl Cardiovascular: Normal S1, Normal S2 Lungs: Normal Air Movement Abdomen: Normal Bowel Sounds, Soft, No Tenderness Extremities: No Clubbing, No Cyanosis, No Edema Vascular: Pulses Symmetrical Current Medications: Current Medications Sig/Ry Start time Last Medication Dose Route Stop Time Status Admin Acetaminophen 650 MG Q4P PRN 10/01 1030 AC 10/01 PO 1223 Acetaminophen 325 MG Q4P PRN 10/01 0215 DC 10/01 PO 0710 Albuterol Sulfate 3 ML EVERY 4 HRS/AWAKE 09/01 2000 AC 10/01 INH 1157 Albuterol Sulfate 3 ML Q4H PRN 08/27 1000 AC 08/28 INH 1309 Dicyclomine HCl 40 MG ONCE ONE 09/30 1645 DC 09/30 PO 09/30 1646 1649 Enoxaparin Sodium 40 MG DAILY 09/03 1000 AC 10/01 SC 1017 Gabapentin 100 MG Q8 PRN 09/28 2100 AC PO Guaifenesin 600 MG Q12 09/25 2200 AC 10/01 PO 1016 Ketorolac 15 MG ONCE ONE 10/01 1000 DC 10/01 Tromethamine IV 10/01 1001 1016 Lorazepam 1 MG DAILY NEEDED PRN 09/30 1630 AC 09/30 PO 2037 Magnesium Oxide 400 MG DAILY 09/12 1000 AC 10/01 PO 1038 Melatonin 10 MG AT BEDTIME 09/27 2200 AC 09/30 PO 2221 Metronidazole 500 MG Q8 09/30 1400 AC 10/01 PO 1355 Omeprazole 40 MG DAILY AC 09/28 1144 AC 10/01 PO 0656 Potassium Chloride 20 MEQ 2200 09/26 2200 AC 09/30 PO 2221 Propranolol HCl 10 MG 1800 09/21 1800 AC 09/30 PO 1810 Sertraline HCl 100 MG DAILY 09/27 1000 AC 10/01 PO 1016 Sodium Chloride 2 SPRAY Q4P PRN 09/24 2130 AC ANIL Trazodone HCl 200 MG AT BEDTIME 09/07 2200 AC 09/30 PO 2221 Last 24 Hrs of Lab/[place] Results Last 24 Hrs of Labs/Mics: Laboratory Tests 10/01/16 0645: Anion Gap 6, Estimated GFR > 60, Glucose 78, Calcium 8.6, Phosphorus 4.5, Magnesium 1.8, Total Bilirubin 0.3, AST 16, ALT 24, Albumin 2.2 L, CBC w Diff NO MAN DIFF REQ, RBC 2.93 L, MCV 89.8, MCH 29.5, RDW 17.7 H, MPV 8.2, Gran % 82.5 H, Lymphocytes % 11.3 L, Monocytes % 5.0, Eosinophils % 0.9, Basophils % 0.3, Absolute Granulocytes 9.5 H, Absolute Lymphocytes 1.3, Absolute Monocytes 0.6, Absolute Eosinophils 0.1, Absolute Basophils 0, PUBS MCHC 32.9 L 09/30/16 1550: Urine Color YEL, Urine Clarity CLEAR, Urine pH 6.5, Ur Specific [place] 1.015, Urine Protein TRACE H, Urine Ketones NEG, Urine Nitrite NEG, Urine Bilirubin NEG, Urine Urobilinogen 0.2, Ur Leukocyte Esterase TRACE H, Ur Microscopic SEDIMENT EXAMINED, Urine WBC 15-25 H, Ur Epithelial Cells MOD H, Urine Bacteria MOD H, Urine Mucus MOD H, Urine Hemoglobin NEG, Urine Glucose NEG Microbiology 09/30 1550 URINE ROUT: Urine Culture - RES GRAM NEGATIVE RODS Assessment/Plan Assessment: Ms. Camacho is a 60 year old female with PMH anxiety, depression, COPD , prior episode of severe clostridium difficile infection in 2016, tobacco abuse and gastritis who presented to the [place] [facility] after one week of altered mental status, decreased oral intake and possible withdrawl symptoms as her clonazepam was being titrated off per doctor instructions. She was found to be hypotensive, febrile and altered while in the [place] ED. In the ED: Vital signs showed Tmax 101.5, HR 116, RR 20, BP 93/62 and O2 saturation 90% on room air. Labs were significant for WBC 18.1 with 37 bands, H&H 13.7/41.6, Plt 623, Na 143 , K 3.6, Cl 107, HCO3 16, BUN/cre 28/1.8, Glu 98, Lactic acid 2.9, AST 62, ALT 42, CK 370, troponin 0.05, proBNP 36412, amylase 153, lipase <10, and UA with high protein, positive nitrite, high urobilinogen, 50 WBCs, moderate bacteria and large hgb. CXR showed no acute pulmonary process. Head CT was negative for acute pathology. Patient was admitted to the ICU for severe sepsis and transferred to general medicine floor on 09/30/2016 1. Severe sepsis secondary to peritonitis from perforated sigmoid colon with abscess formation: Patient febrile, leukocytosis with bandemia, hypotensive and tachycardic on admission. She was griggs-cultured and started on empiric antibiotic therapy with IV unasyn and ceftriaxone. ID consult with Dr. Alycia MD placed. She was placed on pressors for blood pressure support. CT abdomen/pelvis showed free intra-abdominal air and patient was taken to the OR with Dr. Marcello MD for exploratory laparotomy. Patient tolerated Ho's procedure well with noted sigmoid resection and end colostomy well. She was switched to IV flagyl and IV ceftriaxone given concern for previous history of clostridium difficile. Surgery followed patient daily and continued to advice on management of continued intra- abdominal infection. Blood cultures showed no growth, lower respiratory culture grew pseudomonas and culture from OR grew E.Coli, alpha/beta strep and brandon. As lower respiratory culture pseudomonas was resistent to zosyn, patient was placed on IV fluconazole and IV meropenem for complete coverage. Patient had repeat abdominal CT scan which demarcated fluid collections. IR placed one RUQ drain and one LLQ drain to drain this fluid. LLQ was subsequently taken out but the RUQ drain remains in place with continued purulent drainage. Patient hypotensive overnight 09/11/16-09/12/16 and was started on levophed again. Due to this and noted hypoxia, follow up CTA to rule out PE and follow up abdominal/ pelvis CT with IV and PO contrast ordered. Please follow up the results of these two tests, continue to follow ID/surgical recommendations and please continue IV antibiotics to completion. Subsequently the right upper quadrant drain was also removed. Her respiratory status continued to improve and she was extubated. She continued to be on BiPAP intermittently initially after extubation as her respiratory rate would continue to stay high, with component of anxiety contributing as well. Eventually after 2-3 days of BiPAP post extubation, she was then transitioned to nasal cannula. She was planned for discharge to pulmonary rehabilitation namely [facility] for continued pulmonary rehabilitation. 2. Metabolic encephalopathy: Likely due to sepsis with gross peritonitis. All home psychotropic medications held on admission and psychiatric consult placed. It was suggested to not resume these medications until mental status back to baseline. As IV antibiotics adjusted and patient came off of pressors, her mental status returned to baseline and patient completely alert and oriented as well as able to follow commands. Home psychotropics resumed. There was also a component of anxiety and psychiatry was consulted. * continued on Zoloft 100 mg daily and gabapentin 100 every 8hrs 3. Acute hypoxic respiratory failure: Patient initially placed on non-rebreather as O2 saturation on admission of 90% on room air. She was transitioned to high flow nasal cannula/BiPAP due to tachypnea/apparent respiratory distress but was intubated for Ho's procedure with Dr. Marcello MD. Patient had noted bilateral pleural effusions seen on chest CT and had a thoracentesis by IR on . Patient was continued on the mechanical ventilator as she becomes tachypneic and slightly anxious during weaning trials. She was found to have a iatrogenic pneumothorax after draining the fluid therefore she had the chest tube placed for treatment of pneumothorax. Serial chest x-rays were done with resolution of the pneumothorax after with the chest tube was removed. Initially patient did not do very good on the PSV trial, and needed repeated Ativan doses to calm down her anxiety, however after 3 days, she had successful weaning trial and therefore was extubated. Day 1 after extubation she did become short of breath and respiratory rate increased however after placing her on the BiPAP she was more stable, she was low threshold of reintubating at that point however she continued to do good on BiPAP, eventually transitioned to nasal cannula plan to discharge to pulmonary rehabilitation center for continued pulm rehab. 4. SIERRA: On admission, BUN/cre elevated to 28/1.8. This was likely prerenal in the setting of severe sepsis. Patient given IV fluids and renal function improved. We continued to monitor strict Is/Os and monitored renal function daily. Fluids were ultimately tapered off as patient appeared fluid overloaded with bilateral pedal edema and anasarca. * SIERRA resolved 5. Sinus tachycardia with minor T wave changes: Minor T wave changes noted on initial EKG. ACS as ruled out with troponin/EKG x 3. Echocardiogram was performed and showed normal global left ventricular function without wall motion abnormalities and normal pulmonary artery systolic pressure. * Continue propranolol 10 mg at bedtime, even though patient has a bradycardia cardiology recommended continuing propranolol. * We will follow cardiology recommendation 6. Thrombocytosis: On admission, patient had thrombocytosis to 623. She subsequently dropped rapidly with jenifer of 89. DVT prophylaxis was discontinued at that time and platelet count was monitored closely. 4Ts score placed patient at low risk for HIT (<5%). Acute drop likely represented coagulopathy from ongoing sepsis. Platelet count returned to normal and patient again has thrombocytosis. She was placed back on DVT prophylaxis with SC lovenox on 09/02. * Platelet count 543 today 7. Acute blood loss anemia: Noted anemia after Granger's procedure. She has had her CBC trended and a total of 4 units PRBCs delivered to date. No evidence of acute bleeding was appreciated. He did not receive any more blood transfusions after that and her H&H remained stable. * Had total of 4 U PRBC since admission. * Stable H&H-8.7 and 27 * Normocytic anemia with Serum iron 19(L), TIBC 208(L), ferritin 296(H). This point towards early stage anemia of chronic disease. * B12 and folic acid within normal limits 8. Abnormal thyroid function tests * 3 days ago TSH was found to be 10 with a normal T4 and low T3, repeated TSH showed improvement however still high. * Antibodies panel was negative. * We will instruct patient to repeat thyroid function tests after 1 month 9. C. difficile diarrhea patient is complaining of lower abdominal pain and colostomy bag is filled with gas and watery stool. * WBC count elevated to 12,000, remained afebrile * Stool C. difficile is positive * Started on Flagyl 800 mg every 8 hours day 2 Code: FULL DVTP: SC lovenox pain pathway Regular diet Problem List: 1. Sepsis 2. Severe sepsis 3. History of Clostridium difficile infection Pain Ratin Pain Location: abdomen Pain Goal: Remain pain free Pain Plan: Tylenol Toradol Tomorrow's Labs & Rationales: CBC in the setting of leukocytosis and C. difficile diarrhea DENNY TORRES MD 10/01/16 2326: Attending MD Review Statement Attending Statement Attending MD Statement: examined this patient, discuss w/resident/PA/VENTILATING EXPERT, agreed w/resident/PA/VENTILATING EXPERT, reviewed EMR data (avail), discussed with nursing, amended to note Attending Assessment/Plan: The patient was seen and discussed with house staff. Agree with the plan of care as outlined. Episode of hypotension (80 sys) noted today. Responded to IV fluids. Had prior significant diuresis according to Dr. Vargas.
--- NOTE | 2016-10-01 14:45 | PN- Pulmonary ---
Subjective HPI/Critical Care Issues: The patient is awake and alert. She reports feeling significantly improved. She is now ambulating better and feels stronger. She continues to have significant output from her colostomy. She remains on treatment for C. difficile. Objective Current Medications: Current Medications Sig/Ry Start time Last Medication Dose Route Stop Time Status Admin Acetaminophen 650 MG Q4P PRN 10/01 1030 AC 10/01 PO 1223 Acetaminophen 325 MG Q4P PRN 10/01 0215 DC 10/01 PO 0710 Albuterol Sulfate 3 ML EVERY 4 HRS/AWAKE 09/01 2000 AC 10/01 INH 1157 Albuterol Sulfate 3 ML Q4H PRN 08/27 1000 AC 08/28 INH 1309 Dicyclomine HCl 40 MG ONCE ONE 09/30 1645 DC 09/30 PO 09/30 1646 1649 Enoxaparin Sodium 40 MG DAILY 09/03 1000 AC 10/01 SC 1017 Gabapentin 100 MG Q8 PRN 09/28 2100 AC PO Guaifenesin 600 MG Q12 09/25 2200 AC 10/01 PO 1016 Ketorolac 15 MG ONCE ONE 10/01 1000 DC 10/01 Tromethamine IV 10/01 1001 1016 Lorazepam 1 MG DAILY NEEDED PRN 09/30 1630 AC 09/30 PO 2037 Magnesium Oxide 400 MG DAILY 09/12 1000 AC 10/01 PO 1038 Melatonin 10 MG AT BEDTIME 09/27 2200 AC 09/30 PO 2221 Metronidazole 500 MG Q8 09/30 1400 AC 10/01 PO 1355 Omeprazole 40 MG DAILY AC 09/28 1144 AC 10/01 PO 0656 Potassium Chloride 20 MEQ 0 09/26 2200 AC 09/30 PO 2221 Propranolol HCl 10 MG 1800 09/21 1800 AC 09/30 PO 1810 Sertraline HCl 100 MG DAILY 09/27 1000 AC 10/01 PO 1016 Sodium Chloride 2 SPRAY Q4P PRN 09/24 2130 AC ANIL Trazodone HCl 200 MG AT BEDTIME 09/07 2200 AC 09/30 PO 2221 Vital Signs & I&O Last 24 Hrs of Vitals and I&O: Vital Signs Date Time Temp Pulse Resp B/P B/P Pulse O2 O2 Flow FiO2 Mean Ox Delivery Rate 10/01 0810 92 Nasal 5.0L Cannula 10/01 0717 99.4 78 20 126/64 91 10/01 0000 92 Nasal 5.0L Cannula 09/30 2140 100.0 58 18 108/58 92 Nasal 5.0L Cannula 09/30 1810 64 118/64 09/30 1642 94 Nasal 5.0L Cannula 09/30 1600 97.9 61 20 112/64 93 Nasal 5.0L Cannula 09/30 1600 93 Nasal 5.0L Cannula Intake & Output 10/01 1600 10/01 0800 10/01 0000 Intake Total 120 250 Output Total 550 500 Balance -430 -250 Intake, Oral 120 250 Output, Stool 150 300 Output, Urine 400 200 Patient 123 lb Weight Weight Chair scale Measurement Method Exam General Appearance: no apparent distress, alert, awake, comfortable Head: atraumatic, normal appearance Neck: supple Respiratory: decreased breath sounds, rhonchi Cardiovascular: regular rate/rhythm Abdomen: normal bowel sounds, soft, non-tender Extremities: trace edema Skin: intact, warm/dry Results Last 24 Hrs of Lab Results: Laboratory Tests 10/01/16 0645: Anion Gap 6, Estimated GFR > 60, Glucose 78, Calcium 8.6, Phosphorus 4.5, Magnesium 1.8, Total Bilirubin 0.3, AST 16, ALT 24, Albumin 2.2 L, CBC w Diff NO MAN DIFF REQ, RBC 2.93 L, MCV 89.8, MCH 29.5, RDW 17.7 H, MPV 8.2, Gran % 82.5 H, Lymphocytes % 11.3 L, Monocytes % 5.0, Eosinophils % 0.9, Basophils % 0.3, Absolute Granulocytes 9.5 H, Absolute Lymphocytes 1.3, Absolute Monocytes 0.6, Absolute Eosinophils 0.1, Absolute Basophils 0, PUBS MCHC 32.9 L 09/30/16 1550: Urine Color YEL, Urine Clarity CLEAR, Urine pH 6.5, Ur Specific [place] 1.015, Urine Protein TRACE H, Urine Ketones NEG, Urine Nitrite NEG, Urine Bilirubin NEG, Urine Urobilinogen 0.2, Ur Leukocyte Esterase TRACE H, Ur Microscopic SEDIMENT EXAMINED, Urine WBC 15-25 H, Ur Epithelial Cells MOD H, Urine Bacteria MOD H, Urine Mucus MOD H, Urine Hemoglobin NEG, Urine Glucose NEG Impression/Plan Impression/Plan Impression/Plan: 1. Hypoxemic respiratory failure, with improved oxygen requirement. 2. Pleural effusion, status post thoracentesis. 3. Status post pericolic abscess with drainage and sigmoid colectomy with end colostomy. 4. Persistent leukocytosis, stable. 5. Thrombocytosis, likely reactive. 6. Anxiety. 7. Abdominal pain. Recommendations: * Continue high flow oxygen as tolerated. BiPAP only if needed. * Continue treatment for C. difficile as per primary team. * Wean oxygen down for saturations greater than 92%. * Continue TRC/nebs, pulmonary toilet. * Incentive spirometry. * Out of bed to chair daily. * Continue to follow psychiatry recommendations. * Continue DVT prophylaxis at all times. * Transfer to rehabilitation when able. * Continue all supportive care.
[2016-10-01 15:06] VITALS: BP 88/38
--- NOTE | 2016-10-01 16:30 | NUR ---
1510 PATIENT'S BP WAS 72/0 LYING, MANUAL CHECK. OTHER VSS, HR 62. NO S/O DISTRESS NOTED OR REPORTED BY PATIENT. RAPID RESPONSE CALLED FOR HYPOTENSION. DR FISHER IN ROOM WITH BATTERY TESTER FIELD TARAS. 500 NS BOLUS STARTED ORDERED. PRPANOLOL HELD PER DR FISHER 2982 BP RECHECK AFTER COMPLETION OF BOLUS WAS 102/46. HR WAS 58. BATTERY TESTER FIELD CLAUDIA NOTIFIED.
--- NOTE | 2016-10-01 17:11 | Event Note ---
Event Note Event Note: Rapid response was called at around 3.06 PM because of hypotension * Patient blood pressure was 88/38 * Repeat blood pressure was 88/42 * Rapid response was called * All other vitals were normal, saturating at 92 on 5 L nasal cannula * Denies any complaints * No dizziness or lightheadedness * No syncopal events * Patient was given IV normal saline bolus 500 mL after which blood pressure improved 100/54
[2016-10-01 20:00] VITALS: BP 96/50
[2016-10-01 22:34] VITALS: BP 94/48
[2016-10-01 23:00] VITALS: BP 94/48
[2016-10-02] VITALS (7 sets, daily range): BP systolic 90–144; BP diastolic 50–74
--- NOTE | 2016-10-02 02:31 | NUR ---
LATE ENTRY FOR 10/01/16 2300 BP 94/48 HR [address] PEREZ. PT IS NOT DIZZY OR LIGHTHEADED. WILL CONTINUE TO MONITOR.
--- NOTE | 2016-10-02 08:20 | PN- Housestaff ---
TARAS MORATAYA 10/02/16 0820: Subjective Follow-up For: 1. Severe sepsis secondary to peritonitis from perforated sigmoid colon with abscess formation status post Ho's 2. C. difficile diarrhea Complaints: pain scale (0-10) Subjective: Patient was seen and examined this morning. She is alert awake and oriented to time place and person. no acute events noticed overnight. She is a transfer from ICU after Granger's procedure. Colostomy bag-loose watery stool. denies any abdominal discomfort at the site of surgery. Denies any fever, chills. Vitals remained stable afebrile heart rate 74, respiratory rate 20, blood pressure 90/70, saturating at 90 at 5 L nasal cannula Reports being anxious this morning, received xanax. Review of Systems Constitutional: Reports: see HPI. Objective Last 24 Hrs of Vital Signs/I&O Vital Signs Date Time Temp Pulse Resp B/P B/P Pulse O2 O2 Flow FiO2 Mean Ox Delivery Rate 10/02 0756 96 Nasal 5.0L Cannula 10/02 0734 98.4 68 20 92/54 90 10/02 0000 95 Nasal 5.0L Cannula 10/01 2300 94/48 10/01 2234 98.0 61 20 94/48 95 Nasal 5.0L Cannula 10/01 2048 94 Nasal 5.0L Cannula 10/01 2000 60 96/50 10/01 1727 94 Room Air Room Air 10/01 1533 62 82/42 10/01 1506 98.1 60 20 88/38 93 Nasal 5.0L Cannula Intake & Output 10/02 1600 10/02 0800 10/02 0000 Intake Total 740 Output Total 425 700 Balance -425 40 Intake, IV 500 Intake, Oral 240 Output, Stool 150 150 Output, Urine 275 550 Patient 58.74 kg Weight Weight Chair scale Measurement Method Physical Exam General Appearance: Alert, Oriented X3, Cooperative, No Acute Distress Skin: No Rashes, No Breakdown HEENT: Atraumatic, PERRLA, EOMI, Mucous Membr. moist/pink Neck: Supple, No JVD Lymphatic: Cervical nl Cardiovascular: Normal S1, Normal S2 Lungs: Normal Air Movement Abdomen: Normal Bowel Sounds, Soft, No Tenderness, colostomy bag with loose stools Neurological: Strength at 5/5 X4 Ext, Normal Tone, Sensation Intact, Reflexes 2+ Extremities: No Clubbing, No Cyanosis, No Edema, Normal Pulses Vascular: Normal Pulses, Pulses Symmetrical Current Medications: Current Medications Sig/Ry Start time Last Medication Dose Route Stop Time Status Admin Acetaminophen 650 MG Q4P PRN 10/01 1030 AC 10/02 PO 0729 Acetaminophen 325 MG Q4P PRN 10/01 0215 DC 10/01 PO 0710 Albuterol Sulfate 3 ML EVERY 4 HRS/AWAKE 09/01 2000 AC 10/02 INH 0752 Albuterol Sulfate 3 ML Q4H PRN 08/27 1000 AC 08/28 INH 1309 Alprazolam 0.25 MG ONCE ONE 10/02 0915 DC PO 10/02 0916 Alprazolam 0.5 MG ONCE ONE 10/02 0900 CAN PO 10/02 0901 Enoxaparin Sodium 40 MG DAILY 09/03 1000 AC 10/01 SC 1017 Gabapentin 100 MG Q8 PRN 09/28 2100 AC 10/02 PO 0729 Guaifenesin 600 MG Q12 09/25 2200 AC 10/01 PO 2110 Ketorolac 15 MG ONCE ONE 10/01 1000 DC 10/01 Tromethamine IV 10/01 1001 1016 Lorazepam 1 MG DAILY NEEDED PRN 09/30 1630 AC 09/30 PO 2037 Magnesium Oxide 400 MG DAILY 09/12 1000 AC 10/01 PO 1038 Melatonin 10 MG AT BEDTIME 09/27 2200 AC 10/01 PO 2110 Metronidazole 500 MG Q8 09/30 1400 AC 10/02 PO 0700 Omeprazole 40 MG DAILY AC 09/28 1144 AC 10/02 PO 0700 Potassium Chloride 20 MEQ 0 09/26 220 AC 10/01 PO 2110 Propranolol HCl 10 MG 1800 09/21 1800 AC 09/30 PO 1810 Sertraline HCl 100 MG DAILY 09/27 1000 AC 10/01 PO 1016 Sodium Chloride 500 ML BOLUS ONE 10/01 1545 DC 10/01 IV 10/01 1644 1557 Sodium Chloride 2 SPRAY Q4P PRN 09/24 2130 AC ANIL Trazodone HCl 200 MG AT BEDTIME 09/07 2200 AC 10/01 PO 2110 Last 24 Hrs of Lab/[place] Results Last 24 Hrs of Labs/Mics: Laboratory Tests 10/02/16 0705: CBC w Diff NO MAN DIFF REQ, RBC 2.91 L, MCV 91.0, MCH 29.6, RDW 17.9 H, MPV 8.0, Gran % 80.7 H, Lymphocytes % 11.2 L, Monocytes % 5.7, Eosinophils % 1.7, Basophils % 0.7, Absolute Granulocytes 9.6 H, Absolute Lymphocytes 1.3, Absolute Monocytes 0.7 H, Absolute Eosinophils 0.2, Absolute Basophils 0.1, PUBS MCHC 32.5 L Assessment/Plan Assessment: Ms. Camacho is a 60 year old female with PMH anxiety, depression, COPD , prior episode of severe clostridium difficile infection in 2016, tobacco abuse and gastritis who presented to the [facility] ED after one week of altered mental status, decreased oral intake and possible withdrawl symptoms as her clonazepam was being titrated off per doctor instructions. She was found to be hypotensive, febrile and altered while in the [facility] ED. In the ED: Vital signs showed Tmax 101.5, HR 116, RR 20, BP 93/62 and O2 saturation 90% on room air. Labs were significant for WBC 18.1 with 37 bands, H&H 13.7/41.6, Plt 623, Na 143 , K 3.6, Cl 107, HCO3 16, BUN/cre 28/1.8, Glu 98, Lactic acid 2.9, AST 62, ALT 42, CK 370, troponin 0.05, proBNP 51450, amylase 153, lipase <10, and UA with high protein, positive nitrite, high urobilinogen, 50 WBCs, moderate bacteria and large hgb. CXR showed no acute pulmonary process. Head CT was negative for acute pathology. Patient was admitted to the ICU for severe sepsis and transferred to general medicine floor on 09/30/2016 1. Severe sepsis secondary to peritonitis from perforated sigmoid colon with abscess formation: Patient febrile, leukocytosis with bandemia, hypotensive and tachycardic on admission. She was griggs-cultured and started on empiric antibiotic therapy with IV unasyn and ceftriaxone. ID consult with Dr. Alycia MD placed. She was placed on pressors for blood pressure support. CT abdomen/pelvis showed free intra-abdominal air and patient was taken to the OR with Dr. Marcello MD for exploratory laparotomy. Patient tolerated Ho's procedure well with noted sigmoid resection and end colostomy well. She was switched to IV flagyl and IV ceftriaxone given concern for previous history of clostridium difficile. Surgery followed patient daily and continued to advice on management of continued intra- abdominal infection. Blood cultures showed no growth, lower respiratory culture grew pseudomonas and culture from OR grew E.Coli, alpha/beta strep and brandon. As lower respiratory culture pseudomonas was resistent to zosyn, patient was placed on IV fluconazole and IV meropenem for complete coverage. Patient had repeat abdominal CT scan which demarcated fluid collections. IR placed one RUQ drain and one LLQ drain to drain this fluid. LLQ was subsequently taken out but the RUQ drain remains in place with continued purulent drainage. Patient hypotensive overnight 09/11/16-09/12/16 and was started on levophed again. Due to this and noted hypoxia, follow up CTA to rule out PE and follow up abdominal/ pelvis CT with IV and PO contrast ordered. Please follow up the results of these two tests, continue to follow ID/surgical recommendations and please continue IV antibiotics to completion. Subsequently the right upper quadrant drain was also removed. Her respiratory status continued to improve and she was extubated. She continued to be on BiPAP intermittently initially after extubation as her respiratory rate would continue to stay high, with component of anxiety contributing as well. Eventually after 2-3 days of BiPAP post extubation, she was then transitioned to nasal cannula. She was planned for discharge to pulmonary rehabilitation namely [place] for continued pulmonary rehabilitation. 2. Metabolic encephalopathy: Likely due to sepsis with gross peritonitis. All home psychotropic medications held on admission and psychiatric consult placed. It was suggested to not resume these medications until mental status back to baseline. As IV antibiotics adjusted and patient came off of pressors, her mental status returned to baseline and patient completely alert and oriented as well as able to follow commands. Home psychotropics resumed. There was also a component of anxiety and psychiatry was consulted. * continue on Zoloft 100 mg daily and gabapentin 100 every 8hrs 3. Acute hypoxic respiratory failure: Patient initially placed on non-rebreather as O2 saturation on admission of 90% on room air. She was transitioned to high flow nasal cannula/BiPAP due to tachypnea/apparent respiratory distress but was intubated for Ho's procedure with Dr. Marcello MD. Patient had noted bilateral pleural effusions seen on chest CT and had a thoracentesis by IR on . Patient was continued on the mechanical ventilator as she becomes tachypneic and slightly anxious during weaning trials. She was found to have a iatrogenic pneumothorax after draining the fluid therefore she had the chest tube placed for treatment of pneumothorax. Serial chest x-rays were done with resolution of the pneumothorax after with the chest tube was removed. Initially patient did not do very good on the PSV trial, and needed repeated Ativan doses to calm down her anxiety, however after 3 days, she had successful weaning trial and therefore was extubated. Day 1 after extubation she did become short of breath and respiratory rate increased however after placing her on the BiPAP she was more stable, she was low threshold of reintubating at that point however she continued to do good on BiPAP, eventually transitioned to nasal cannula plan to discharge to pulmonary rehabilitation center for continued pulm rehab. 4. SIERRA: On admission, BUN/cre elevated to 28/1.8. This was likely prerenal in the setting of severe sepsis. Patient given IV fluids and renal function improved. We continued to monitor strict Is/Os and monitored renal function daily. Fluids were ultimately tapered off as patient appeared fluid overloaded with bilateral pedal edema and anasarca. * SIERRA resolved 5. Sinus tachycardia with minor T wave changes: Minor T wave changes noted on initial EKG. ACS as ruled out with troponin/EKG x 3. Echocardiogram was performed and showed normal global left ventricular function without wall motion abnormalities and normal pulmonary artery systolic pressure. * Continue propranolol 10 mg at bedtime, even though patient has a bradycardia cardiology recommended continuing propranolol. * We will follow cardiology recommendation 6. Thrombocytosis: On admission, patient had thrombocytosis to 623. She subsequently dropped rapidly with jenifer of 89. DVT prophylaxis was discontinued at that time and platelet count was monitored closely. 4Ts score placed patient at low risk for HIT (<5%). Acute drop likely represented coagulopathy from ongoing sepsis. Platelet count returned to normal and patient again has thrombocytosis. She was placed back on DVT prophylaxis with SC lovenox on 09/02. * Platelet count 592 today 7. Acute blood loss anemia: Noted anemia after Granger's procedure. She has had her CBC trended and a total of 4 units PRBCs delivered to date. No evidence of acute bleeding was appreciated. He did not receive any more blood transfusions after that and her H&H remained stable. * Had total of 4 U PRBC since admission. * Stable H&H-8.6 and 27 * Normocytic anemia with Serum iron 19(L), TIBC 208(L), ferritin 296(H). This point towards early stage anemia of chronic disease. * B12 and folic acid within normal limits 8. Abnormal thyroid function tests * 3 days ago TSH was found to be 10 with a normal T4 and low T3, repeated TSH showed improvement however still high. * Antibodies panel was negative. * We will instruct patient to repeat thyroid function tests after 1 month 9. C. difficile diarrhea patient is complaining of lower abdominal pain and colostomy bag is filled with gas and watery stool. * WBC count elevated to 12,000, remained afebrile * Stool C. difficile is positive * Started on Flagyl 800 mg every 8 hours day3 Code: FULL DVTP: SC lovenox pain pathway Regular diet Problem List: 1. Severe sepsis 2. History of Clostridium difficile infection Pain Ratin Pain Location: abdomen Pain Goal: Remain pain free Pain Plan: tylenol Tomorrow's Labs & Rationales: none MELISSA BAILEY,DENNY 10/02/164: Attending MD Review Statement Attending Statement Attending MD Statement: examined this patient, discuss w/resident/PA/SKIN PEELING MACHINE OPERATOR, agreed w/resident/PA/SKIN PEELING MACHINE OPERATOR, reviewed EMR data (avail), discussed with nursing, amended to note Attending Assessment/Plan: The patient was seen and discussed with house staff. Agree with the plan of care as outlined. Still very anxious and c/o some pain. Note- patient is on low dose of Propranolol and concern regarding effect on BP, COPD, etc. Will discuss with psychiatry and ask for follow-up in morning. Hold propranolol tonight. OK for low dose Xanax/Percocet (minimize).
[2016-10-02 08:31] LABS: ABSOLUTE BASOPHIL COUNT 0.1 /CUMM (0.0-0.2); ABSOLUTE EOSINOPHIL COUNT 0.2 /CUMM (0.0-0.7); ABSOLUTE GRANULOCYTE CT 9.6 /CUMM (1.4-6.5); ABSOLUTE LYMPH COUNT 1.3 /CUMM (1.2-3.4); ABSOLUTE MONOCYTE COUNT 0.7 /CUMM (0.10-0.60); BASOPHIL % 0.7 % (0.0-2.0); EOSINOPHIL % 1.7 % (0-5); GRANULOCYTE % 80.7 % (42.2-75.2); HEMATOCRIT 26.4 % (37-47); MEAN CORPUSCULAR HGB 29.6 PG (27.0-31.0); MEAN CORPUSCULAR HGB CONC 32.5 G/DL (33.0-37.0); PLATELET COUNT 592 /CUMM (130-400); RBC DISTRIBUTION WIDTH 17.9 % (11.5-14.5); RED BLOOD CELL CT 2.91 /CUMM (4.20-5.40); WHITE BLOOD CELL COUNT 11.9 /CUMM (4.8-10.8)
--- NOTE | 2016-10-02 11:42 | PN- Pulmonary ---
Subjective HPI/Critical Care Issues: The patient is awake and alert. She reports her breathing has improved overall. She is having difficulty with low appetite. She denies any other new complaints today. Objective Current Medications: Current Medications Sig/Ry Start time Last Medication Dose Route Stop Time Status Admin Acetaminophen 650 MG Q4P PRN 10/01 1030 AC 10/02 PO 0729 Albuterol Sulfate 3 ML EVERY 4 HRS/AWAKE 09/01 2000 AC 10/02 INH 1137 Albuterol Sulfate 3 ML Q4H PRN 08/27 1000 AC 08/28 INH 1309 Alprazolam 0.25 MG ONCE ONE 10/02 0915 DC 10/02 PO 10/02 0916 0925 Alprazolam 0.5 MG ONCE ONE 10/02 0900 CAN PO 10/02 0901 Enoxaparin Sodium 40 MG DAILY 09/03 1000 AC 10/02 SC 0935 Gabapentin 100 MG Q8 PRN 09/28 2100 AC 10/02 PO 0729 Guaifenesin 600 MG Q12 09/25 2200 AC 10/02 PO 0924 Lorazepam 1 MG DAILY NEEDED PRN 09/30 1630 AC 09/30 PO 2037 Magnesium Oxide 400 MG DAILY 09/12 1000 AC 10/02 PO 0924 Melatonin 10 MG AT BEDTIME 09/27 2200 AC 10/01 PO 2110 Metronidazole 500 MG Q8 09/30 1400 AC 10/02 PO 0700 Omeprazole 40 MG DAILY AC 09/28 1144 AC 10/02 PO 0700 Potassium Chloride 20 MEQ 2200 09/26 2200 AC 10/01 PO 2110 Propranolol HCl 10 MG 1800 09/21 1800 AC 09/30 PO 1810 Sertraline HCl 100 MG DAILY 09/27 1000 AC 10/02 PO 0924 Sodium Chloride 500 ML BOLUS ONE 10/01 1545 DC 10/01 IV 10/01 1644 1557 Sodium Chloride 2 SPRAY Q4P PRN 09/24 2130 AC ANIL Trazodone HCl 200 MG AT BEDTIME 09/07 2200 AC 10/01 PO 2110 Vital Signs & I&O Last 24 Hrs of Vitals and I&O: Vital Signs Date Time Temp Pulse Resp B/P B/P Pulse O2 O2 Flow FiO2 Mean Ox Delivery Rate 10/02 0756 96 Nasal 5.0L Cannula 10/02 0734 98.4 68 20 92/54 90 10/02 0000 95 Nasal 5.0L Cannula 10/01 2300 94/48 10/01 2234 98.0 61 20 94/48 95 Nasal 5.0L Cannula 10/01 2048 94 Nasal 5.0L Cannula 10/01 2000 60 96/50 10/01 1727 94 Room Air Room Air 10/01 1533 62 82/42 10/01 1506 98.1 60 20 88/38 93 Nasal 5.0L Cannula Intake & Output 10/02 1600 10/02 0800 10/02 0000 Intake Total 740 Output Total 425 700 Balance -425 40 Intake, IV 500 Intake, Oral 240 Output, Stool 150 150 Output, Urine 275 550 Patient 130 lb Weight Weight Chair scale Measurement Method Exam General Appearance: no apparent distress, alert, awake, comfortable Head: atraumatic, normal appearance Neck: supple Respiratory: decreased breath sounds, rhonchi Cardiovascular: regular rate/rhythm Abdomen: normal bowel sounds, soft, non-tender Extremities: trace edema Skin: intact, warm/dry Results Last 24 Hrs of Lab Results: Laboratory Tests 10/02/16 0705: CBC w Diff NO MAN DIFF REQ, RBC 2.91 L, MCV 91.0, MCH 29.6, RDW 17.9 H, MPV 8.0, Gran % 80.7 H, Lymphocytes % 11.2 L, Monocytes % 5.7, Eosinophils % 1.7, Basophils % 0.7, Absolute Granulocytes 9.6 H, Absolute Lymphocytes 1.3, Absolute Monocytes 0.7 H, Absolute Eosinophils 0.2, Absolute Basophils 0.1, PUBS MCHC 32.5 L Impression/Plan Impression/Plan Impression/Plan: 1. Hypoxemic respiratory failure, with improved oxygen requirement. 2. Pleural effusion, status post thoracentesis. 3. Status post pericolic abscess with drainage and sigmoid colectomy with end colostomy. 4. Persistent leukocytosis, likely secondary to C. difficile colitis. 5. Thrombocytosis, likely reactive. 6. Anxiety. 7. Abdominal pain. 8. Chronic anemia. Recommendations: * Continue treatment for C. difficile as per primary team. * Wean oxygen down for saturations greater than 92%. * Continue TRC/nebs, pulmonary toilet. * Incentive spirometry. * Out of bed to chair daily. * Continue DVT prophylaxis at all times. * Transfer to rehabilitation when able. * Continue all supportive care.
[2016-10-03 06:55] VITALS: BP 111/59
--- NOTE | 2016-10-03 07:35 | PN- Housestaff ---
TARAS MORATAYA 10/03/16 0735: Subjective Follow-up For: 1. Severe sepsis secondary to peritonitis from perforated sigmoid colon with abscess formation status post Ho's 2. C. difficile diarrhea Complaints: pain scale (0-10) Subjective: Patient was seen and examined this morning. She is alert awake and oriented to time place and person. no acute events noticed overnight. She is a transfer from ICU after Granger's procedure. Colostomy bag-loose watery stool. denies any abdominal discomfort at the site of surgery. Denies any fever, chills. patient was anxious this morning, requesting for xanax Vitals remained stable afebrile heart rate 74, respiratory rate 20, blood pressure 100/70, saturating at 90 at 5 L nasal cannula Review of Systems Constitutional: Reports: see HPI. Objective Last 24 Hrs of Vital Signs/I&O Vital Signs Date Time Temp Pulse Resp B/P B/P Pulse O2 O2 Flow FiO2 Mean Ox Delivery Rate 10/03 1433 98.7 79 22 100/50 97 Nasal 5.0L Cannula 10/03 0811 93 Nasal 5.0L Cannula 10/03 0800 93 Nasal 5.0L Cannula 10/03 0655 98.1 83 20 111/59 95 Nasal 5.0L Cannula 10/03 0000 Nasal 5.0L Cannula 10/02 2306 102/54 10/02 2130 98.8 84 20 100/58 96 10/02 2018 94 Nasal 5.0L Cannula 10/02 1957 94/64 10/02 1830 76 144/74 10/02 1730 769 90/50 Intake & Output 10/03 1600 10/03 0800 10/03 0000 Intake Total Output Total 675 750 Balance -675 -750 Number 1 Bowel Movements Output, Stool 175 350 Output, Urine 500 400 Patient 58.967 kg Weight Physical Exam General Appearance: Alert, Oriented X3, Cooperative, No Acute Distress Skin: No Rashes, No Breakdown, colostomy bag in place HEENT: Atraumatic, PERRLA, EOMI, Mucous Membr. moist/pink Neck: Supple, No JVD Lymphatic: Cervical nl Cardiovascular: Normal S1, Normal S2 Lungs: Normal Air Movement Abdomen: Normal Bowel Sounds, Soft, No Tenderness Extremities: No Clubbing, No Cyanosis, No Edema Vascular: Normal Pulses, Pulses Symmetrical Current Medications: Current Medications Sig/Ry Start time Last Medication Dose Route Stop Time Status Admin Acetaminophen 650 MG Q4P PRN 10/01 1030 AC 10/02 PO 1326 Albuterol Sulfate 3 ML EVERY 4 HRS/AWAKE 09/01 2000 AC 10/03 INH 1127 Albuterol Sulfate 3 ML Q4H PRN 08/27 1000 AC 08/28 INH 1309 Alprazolam 0.25 MG TID PRN 10/02 1715 AC 10/03 PO 10/09 1714 0921 Enoxaparin Sodium 40 MG DAILY 09/03 1000 AC 10/03 SC 0913 Gabapentin 300 MG Q8 PRN 10/03 1441 AC PO Gabapentin 100 MG Q8 PRN 09/28 2100 DC 10/02 PO 0729 Guaifenesin 600 MG Q12 09/25 2200 AC 10/03 PO 0912 Lorazepam 1 MG DAILY NEEDED PRN 09/30 1630 AC 09/30 PO 2037 Magnesium Oxide 400 MG DAILY 09/12 1000 AC 10/03 PO 0912 Melatonin 10 MG AT BEDTIME 09/27 2200 AC 10/02 PO 2139 Metronidazole 500 MG Q8 09/30 1400 AC 10/03 PO 1434 Omeprazole 40 MG DAILY AC 09/28 1144 AC 10/03 PO 0612 Ondansetron HCl 4 MG ONCE ONE 10/02 1830 DC 10/02 IV 10/02 1831 1933 Oxycodone/ 1 TAB Q8P PRN 10/02 1715 AC 10/03 Acetaminophen PO 1246 Potassium Chloride 20 MEQ 0 09/26 2200 AC 10/02 PO 2138 Propranolol HCl 10 MG 1800 09/21 1800 DC 09/30 PO 1810 Sertraline HCl 150 MG DAILY 10/04 1000 AC PO 10/09 1100 Sertraline HCl 100 MG DAILY 09/27 1000 DC 10/03 PO 0912 Sodium Chloride 2 SPRAY Q4P PRN 09/24 2130 AC ANIL Trazodone HCl 200 MG AT BEDTIME 09/07 2200 AC 10/02 PO 213 Assessment/Plan Assessment: Ms. Camacho is a 60 year old female with PMH anxiety, depression, COPD , prior episode of severe clostridium difficile infection in 2016, tobacco abuse and gastritis who presented to the [facility] after one week of altered mental status, decreased oral intake and possible withdrawl symptoms as her clonazepam was being titrated off per doctor instructions. She was found to be hypotensive, febrile and altered while in the [facility]. In the ED: Vital signs showed Tmax 101.5, HR 116, RR 20, BP 93/62 and O2 saturation 90% on room air. Labs were significant for WBC 18.1 with 37 bands, H&H 13.7/41.6, Plt 623, Na 143 , K 3.6, Cl 107, HCO3 16, BUN/cre 28/1.8, Glu 98, Lactic acid 2.9, AST 62, ALT 42, CK 370, troponin 0.05, proBNP 96747, amylase 153, lipase <10, and UA with high protein, positive nitrite, high urobilinogen, 50 WBCs, moderate bacteria and large hgb. CXR showed no acute pulmonary process. Head CT was negative for acute pathology. Patient was admitted to the ICU for severe sepsis and transferred to general medicine floor on 09/30/2016 1. Severe sepsis secondary to peritonitis from perforated sigmoid colon with abscess formation: Patient febrile, leukocytosis with bandemia, hypotensive and tachycardic on admission. She was griggs-cultured and started on empiric antibiotic therapy with IV unasyn and ceftriaxone. ID consult with Dr. Alycia MD placed. She was placed on pressors for blood pressure support. CT abdomen/pelvis showed free intra-abdominal air and patient was taken to the OR with Dr. Marcello MD for exploratory laparotomy. Patient tolerated Ho's procedure well with noted sigmoid resection and end colostomy well. She was switched to IV flagyl and IV ceftriaxone given concern for previous history of clostridium difficile. Surgery followed patient daily and continued to advice on management of continued intra- abdominal infection. Blood cultures showed no growth, lower respiratory culture grew pseudomonas and culture from OR grew E.Coli, alpha/beta strep and brandon. As lower respiratory culture pseudomonas was resistent to zosyn, patient was placed on IV fluconazole and IV meropenem for complete coverage. Patient had repeat abdominal CT scan which demarcated fluid collections. IR placed one RUQ drain and one LLQ drain to drain this fluid. LLQ was subsequently taken out but the RUQ drain remains in place with continued purulent drainage. Patient hypotensive overnight 09/11/16-09/12/16 and was started on levophed again. Due to this and noted hypoxia, follow up CTA to rule out PE and follow up abdominal/ pelvis CT with IV and PO contrast ordered. Please follow up the results of these two tests, continue to follow ID/surgical recommendations and please continue IV antibiotics to completion. Subsequently the right upper quadrant drain was also removed. Her respiratory status continued to improve and she was extubated. She continued to be on BiPAP intermittently initially after extubation as her respiratory rate would continue to stay high, with component of anxiety contributing as well. Eventually after 2-3 days of BiPAP post extubation, she was then transitioned to nasal cannula. She was planned for discharge to rehabilitation. 2. Metabolic encephalopathy: Likely due to sepsis with gross peritonitis. All home psychotropic medications held on admission and psychiatric consult placed. It was suggested to not resume these medications until mental status back to baseline. As IV antibiotics adjusted and patient came off of pressors, her mental status returned to baseline and patient completely alert and oriented as well as able to follow commands. Home psychotropics resumed. There was also a component of anxiety and psychiatry was consulted. * zoloft increased 150 mg every day Till 10/09/2016, then take Zoloft 200 mg every day * Gabapentin dose increased to 300 mg 3 times a day as required for anxiety * Home medications propranolol, hydroxyzine, Paxil were stopped * And was advised to follow-up with [facility] for further psychiatric care 3. Acute hypoxic respiratory failure: Patient initially placed on non-rebreather as O2 saturation on admission of 90% on room air. She was transitioned to high flow nasal cannula/BiPAP due to tachypnea/apparent respiratory distress but was intubated for Ho's procedure with Dr. Marcello MD. Patient had noted bilateral pleural effusions seen on chest CT and had a thoracentesis by IR on . Patient was continued on the mechanical ventilator as she becomes tachypneic and slightly anxious during weaning trials. She was found to have a iatrogenic pneumothorax after draining the fluid therefore she had the chest tube placed for treatment of pneumothorax. Serial chest x-rays were done with resolution of the pneumothorax after with the chest tube was removed. Initially patient did not do very good on the PSV trial, and needed repeated Ativan doses to calm down her anxiety, however after 3 days, she had successful weaning trial and therefore was extubated. Day 1 after extubation she did become short of breath and respiratory rate increased however after placing her on the BiPAP she was more stable, she was low threshold of reintubating at that point however she continued to do good on BiPAP, eventually transitioned to nasal cannula plan to discharge to pulmonary rehabilitation center for continued pulm rehab. 4. SIERRA: On admission, BUN/cre elevated to 28/1.8. This was likely prerenal in the setting of severe sepsis. Patient given IV fluids and renal function improved. We continued to monitor strict Is/Os and monitored renal function daily. Fluids were ultimately tapered off as patient appeared fluid overloaded with bilateral pedal edema and anasarca. * SIERRA resolved 5. Sinus tachycardia with minor T wave changes: Minor T wave changes noted on initial EKG. ACS as ruled out with troponin/EKG x 3. Echocardiogram was performed and showed normal global left ventricular function without wall motion abnormalities and normal pulmonary artery systolic pressure. 6. Thrombocytosis: On admission, patient had thrombocytosis to 623. She subsequently dropped rapidly with jenifer of 89. DVT prophylaxis was discontinued at that time and platelet count was monitored closely. 4Ts score placed patient at low risk for HIT (<5%). Acute drop likely represented coagulopathy from ongoing sepsis. Platelet count returned to normal and patient again has thrombocytosis. She was placed back on DVT prophylaxis with SC lovenox on 09/02. * Platelet count 592 today 7. Acute blood loss anemia: Noted anemia after Granger's procedure. She has had her CBC trended and a total of 4 units PRBCs delivered to date. No evidence of acute bleeding was appreciated. He did not receive any more blood transfusions after that and her H&H remained stable. * Had total of 4 U PRBC since admission. * Stable H&H-8.6 and 27 * Normocytic anemia with Serum iron 19(L), TIBC 208(L), ferritin 296(H). This point towards early stage anemia of chronic disease. * B12 and folic acid within normal limits 8. Abnormal thyroid function tests * 3 days ago TSH was found to be 10 with a normal T4 and low T3, repeated TSH showed improvement however still high. * Antibodies panel was negative. * We will instruct patient to repeat thyroid function tests after 1 month 9. C. difficile diarrhea patient is complaining of lower abdominal pain and colostomy bag is filled with gas and watery stool. * WBC count elevated to 12,000, remained afebrile * Stool C. difficile is positive * Started on Flagyl 800 mg every 8 hours day4 Code: FULL DVTP: SC lovenox pain pathway Regular diet Problem List: 1. History of Clostridium difficile infection 2. Hypotension 3. Sepsis Pain Ratin Pain Location: n/a Pain Goal: Remain pain free Pain Plan: lesli Tomorrow's Labs & Rationales: none DENNY TORRES MD 10/03/164: Attending MD Review Statement Attending Statement Attending MD Statement: examined this patient, discuss w/resident/PA/TIP STITCHER, agreed w/resident/PA/TIP STITCHER, reviewed EMR data (avail), discussed with nursing, discussed with case mgmt, amended to note Attending Assessment/Plan: The patient was seen and discussed with house staff. Appreciate ID follow-up. Agree with the plan of care as outlined. Continue Flagyl. Await decision regarding rehab placement.
--- NOTE | 2016-10-03 09:43 | Discharge Summary ---
Visit Information Visit Dates Admission Date: 08/25/16 Hospital Course Allergies: Coded Allergies: azithromycin (Intermediate, NAUSEA AND VOMITING 08/26/16) Discharge Instructions General Discharge Information Code Status: Full Code Medications at Discharge Discharge Medications: Continue taking these medications: Paroxetine HCl (Paxil) 10 MG TABLET 1 Tablet ORAL DAILY Propranolol HCl (Propranolol HCl) 10 MG TABLET 1 Tablet ORAL Every night Qty = 30 Sertraline HCl (Sertraline HCl) 100 MG TABLET 2 Tablet ORAL DAILY Qty = 60 Clonazepam (Clonazepam) 0.5 MG TABLET 1 Tablet ORAL DAILY Qty = 30 Hydroxyzine HCl (Hydroxyzine HCl) 25 MG TABLET 2 Tablet ORAL TWICE DAILY Days = 30 Albuterol Sulfate (Ventolin Hfa) 90 MCG HFA.AER.AD 2 Puff Inhale through mouth EVERY 4-6 HOURS NEEDED as needed for SHORTNESS OF BREATH Qty = 18 Budesonide/Formoterol Fumarate (Symbicort 160-4.5 Mcg Inhaler) 160 MCG-4.5 MCG/ ACTUATION HFA.AER.AD 2 Puff Inhale through mouth TWICE DAILY Qty = 10 Baclofen (Baclofen) 10 MG TABLET 1 Tablet ORAL Qty = 10 Tramadol HCl (Tramadol HCl) 50 MG TABLET 1 Tablet ORAL 2 x Daily as needed as needed for UNKNOWN Qty = 90 Trazodone HCl (Trazodone HCl) 100 MG TABLET 2 Tablet ORAL Every night Qty = 60
--- NOTE | 2016-10-03 13:07 | PN- Infect Dx ---
Subjective Subjective: Afebrile. She notes some abdominal discomfort. She is concerned about issues regarding her colostomy including the feasibility of reversal. Objective Last 24 Hrs of Vital Signs/I&O Vital Signs Date Time Temp Pulse Resp B/P B/P Pulse O2 O2 Flow FiO2 Mean Ox Delivery Rate 10/03 0811 93 Nasal 5.0L Cannula 10/03 0800 93 Nasal 5.0L Cannula 10/03 0655 98.1 83 20 111/59 95 Nasal 5.0L Cannula 10/03 0000 Nasal 5.0L Cannula 10/02 2306 102/54 10/02 2130 98.8 84 20 100/58 96 10/02 2018 94 Nasal 5.0L Cannula 10/02 1957 94/64 10/02 1830 76 144/74 10/02 1730 769 90/50 10/02 1452 98.5 71 20 100/50 96 Nasal Cannula Intake & Output 10/03 1600 10/03 0800 10/03 0000 Intake Total Output Total 675 750 Balance -675 -750 Number 1 Bowel Movements Output, Stool 175 350 Output, Urine 500 400 Patient 130 lb Weight Physical Exam Other Physical Findings: She appears comfortable in no acute distress Lungs decreased breath sounds both bases Heart regular rhythm with no murmur Abdomen is soft, minimally tender to palpation, with positive bowel sounds; some formed stool in the colostomy Extremities 1-2+ edema both lower extremities; PICC in the right upper extremity with no inflammation at the site Results Last 24 Hours of Lab Results: Laboratory Tests 10/02 07 Hematology CBC w Diff NO MAN DIFF REQ WBC (4.8 - 10.8 /CUMM) 11.9 H RBC (4.20 - 5.40 /CUMM) 2.91 L Hgb (12.0 - 16.0 G/DL) 8.6 L Hct (37 - 47 %) 26.4 L MCV (81.0 - 99.0 FL) 91.0 MCH (27.0 - 31.0 PG) 29.6 RDW (11.5 - 14.5 %) 17.9 H Plt Count (130 - 400 /CUMM) 592 H MPV (7.4 - 10.4 FL) 8.0 Gran % (42.2 - 75.2 %) 80.7 H Lymphocytes % (20.5 - 51.1 %) 11.2 L Monocytes % (1.7 - 9.3 %) 5.7 Eosinophils % (0 - 5 %) 1.7 Basophils % (0.0 - 2.0 %) 0.7 Absolute Granulocytes (1.4 - 6.5 /CUMM) 9.6 H Absolute Lymphocytes (1.2 - 3.4 /CUMM) 1.3 Absolute Monocytes (0.10 - 0.60 /CUMM) 0.7 H Absolute Eosinophils (0.0 - 0.7 /CUMM) 0.2 Absolute Basophils (0.0 - 0.2 /CUMM) 0.1 PUBS MCHC (33.0 - 37.0 G/DL) 32.5 L Last 24 Hours of [place] Results: No recent cultures Assessment/Plan Impression: Stable with temperatures remaining normal and white blood cell count only minimally elevated on po Flagyl Day 3 of treatment for C. difficile with her stools appearing to be more formed. The recent CT scan did reveal a slight increase in the right perihepatic loculated fluid, but as she has otherwise improved do not feel this should be pursued at this time. She remains oxygen dependent, likely related to the bilateral pleural effusions and atelectasis seen on the recent CT scan. Suggestion: 1. Further management of her respiratory status per Pulmonary 2. Surgical follow-up regarding timing of colostomy reversal 3. Continue Flagyl
--- NOTE | 2016-10-03 14:14 | PN- Psychiatry ---
Assessment/Plan Impression: Identifying Info: 60-year-old female with a history of PAULA and MDD treated at [facility] presents to [facility] emergency department on 08/25/2016 with altered mental status. Subsequently found to be septic and has had complicated hospital course. SUBJECTIVE Patient states "the Zoloft is starting to kick in." Reports a decrease in depression but continued anxiety. He did not feel the 100 mg dose of gabapentin was effective feels she needs a higher dose. Brief ROS Gait: Not observed Sleep: Poor but improved Appetite: Poor OBJECTIVE Mental Status Exam Presentation/Appearance: Calm. Cooperative with evaluation. Hospital garb. Orientation: x4 Sensorium: Awake and alert Eye contact: Fair Affect: Somewhat constricted but broader than previous encounters Mood: "Not bad" Depression: Denies Anxiety: Endorses Thought Content: - Denies SI/HI, AH/VH, PI. States and also believes they will not kill themselves. - Denies Hopeless/Helpless Thoughts Thought Process: Linear Associations: Appropriate Speech: Soft Judgment: Fair Insight: Intact Cognition: Memory: Endorses issues, difficulty word finding noted Attention/Concentration: Grossly intact Fund of Knowledge: Adequate Abstractions: Did not assess MMSE: Did not assess Spoke to Sara from [facility] who confirmed the patient's diagnoses including posttraumatic stress disorder, alcohol use disorder mild, sedative hypnotic use disorder mild. House staff and attending report that patient has been hypotensive and cannot continue her propranolol. ASSESSMENT 60-year-old female with continued anxiety and mood issues in the context of prolonged hospitalization. She has continued anxiety issues as well as respiratory issues. Her mood has improved but anxiety remains. Diagnosis Posttraumatic stress disorder Alcohol use disorder, mild Sedative hypnotic use disorder, mild Delirium due to infection, resolved A total of 30 minutes was spent with the patient with more than 50% of the time spent in counseling and/or coordination of care. Suggestion: 1. Please increase sertraline to 150mg. Plan to increase to 200mg on 10/10. 2. Increase gabapentin to 300 mg PO TID PRN anxiety (off label use) as an alternative agent to Ativan. 3. Patient continues to plan to follow-up with care post discharge. Thank you for including psychiatry in this case we'll continue to follow. Subjective Subjective: as above Objective Last 24 Hrs of Vital Signs/I&O Current Medications Sig/Ry Start time Last Medication Dose Route Stop Time Status Admin Acetaminophen 650 MG Q4P PRN 10/01 1030 AC 10/02 PO 1326 Albuterol Sulfate 3 ML EVERY 4 HRS/AWAKE 09/01 2000 AC 10/03 INH 1127 Albuterol Sulfate 3 ML Q4H PRN 08/27 1000 AC 08/28 INH 1309 Alprazolam 0.25 MG TID PRN 10/02 1715 AC 10/03 PO 10/09 1714 0921 Enoxaparin Sodium 40 MG DAILY 09/03 1000 AC 10/03 SC 0913 Gabapentin 100 MG Q8 PRN 09/28 2100 AC 10/02 PO 0729 Guaifenesin 600 MG Q12 09/25 2200 AC 10/03 PO 0912 Lorazepam 1 MG DAILY NEEDED PRN 09/30 1630 AC 09/30 PO 2037 Magnesium Oxide 400 MG DAILY 09/12 1000 AC 10/03 PO 0912 Melatonin 10 MG AT BEDTIME 09/27 2200 AC 10/02 PO 2139 Metronidazole 500 MG Q8 09/30 1400 AC 10/03 PO 0613 Omeprazole 40 MG DAILY AC 09/28 1144 AC 10/03 PO 0612 Ondansetron HCl 4 MG ONCE ONE 10/02 1830 DC 10/02 IV 10/02 1831 1933 Oxycodone/ 1 TAB Q8P PRN 10/02 1715 AC 10/03 Acetaminophen PO 1246 Potassium Chloride 20 MEQ 09/26 2200 AC 10/02 PO 2138 Propranolol HCl 10 MG 1800 09/21 1800 DC 09/30 PO 1810 Sertraline HCl 100 MG DAILY 09/27 1000 AC 10/03 PO 0912 Sodium Chloride 2 SPRAY Q4P PRN 09/24 2129 AC ANIL Trazodone HCl 200 MG AT BEDTIME 09/07 2200 AC 10/02 PO 2139 Vital Signs Date Time Temp Pulse Resp B/P B/P Pulse O2 O2 Flow FiO2 Mean Ox Delivery Rate 10/03 0811 93 Nasal 5.0L Cannula 10/03 0800 93 Nasal 5.0L Cannula 10/03 0655 98.1 83 20 111/59 95 Nasal 5.0L Cannula 10/03 0000 Nasal 5.0L Cannula 10/02 2306 102/54 10/02 2129 98.8 84 20 100/58 96 10/02 Nasal 5.0L Cannula 10/02 1956 94/64 06/25 1830 76 144/74 10/02 1730 769 90/50 10/02 1452 98.5 71 20 100/50 96 Nasal Cannula Intake & Output 10/03 1600 10/03 0800 10/03 0000 Intake Total Output Total 675 750 Balance -674 -750 Number 1 Bowel Movements Output, Stool 175 350 Output, Urine 500 400 Patient 130 lb Weight
[2016-10-03 14:33] VITALS: BP 100/50
[2016-10-03] MEDS ORDERED: GUAIFENESIN ER600 MG PO (14:58)
[2016-10-03] MEDS ORDERED: MELATONIN5 M7 PO (14:58)
[2016-10-03] MEDS ORDERED: ALBUTEROL2.5 MG/3 M INH (14:58)
[2016-10-03] MEDS ORDERED: ZOLOFT100 M1 PO (14:58)
[2016-10-03] MEDS ORDERED: FLAGYL250 M1 PO (14:58)
[2016-10-03] MEDS ORDERED: MAGNESIUM OXID400 M1 PO (14:58)
[2016-10-03] MEDS ORDERED: GABAPENTIN300 M2 PO (14:58)
[2016-10-03] MEDS ORDERED: OMEPRAZOLE20 M2 PO (14:58)
[2016-10-03 22:08] VITALS: BP 108/56
[2016-10-04 06:28] VITALS: BP 118/58
--- NOTE | 2016-10-04 07:31 | PN- Housestaff ---
TARAS MORATAYA 10/04/16 0730: Subjective Follow-up For: 1. Severe sepsis secondary to peritonitis from perforated sigmoid colon with abscess formation status post Ho's 2. C. difficile diarrhea Complaints: pain scale (0-10) Subjective: Patient was seen and examined this morning. She is alert awake and oriented to time place and person. no acute events noticed overnight. She is a transfer from ICU after Granger's procedure. Colostomy bag-formed stool. denies any abdominal discomfort at the site of surgery. denies diarhea Denies any fever, chills. patient was anxious this morning,, Vitals remained stable afebrile heart rate 74, respiratory rate 20, blood pressure 100/70, saturating at 90 at 5 L nasal cannula Review of Systems Constitutional: Reports: see HPI. Objective Last 24 Hrs of Vital Signs/I&O Vital Signs Date Time Temp Pulse Resp B/P B/P Pulse O2 O2 Flow FiO2 Mean Ox Delivery Rate 10/04 1249 98.5 80 20 118/58 10/04 0810 96 Nasal 4.0L Cannula 10/04 0800 Nasal 5.0L Cannula 10/04 0628 98.5 80 20 118/58 93 Nasal 5.0L Cannula 10/04 0034 97 Nasal 5.0L Cannula 10/03 2208 98.6 70 20 108/56 97 Nasal 5.0L Cannula 10/03 1651 96 Nasal 5.0L Cannula Intake & Output 10/04 1600 10/04 0800 10/04 0000 Intake Total 240 240 Output Total 1300 700 Balance -1060 -460 Intake, Oral 240 240 Output, Stool 100 Output, Urine 1300 600 Physical Exam General Appearance: Alert, Oriented X3, Cooperative, No Acute Distress Skin: No Rashes, No Breakdown HEENT: Atraumatic, PERRLA, EOMI, Mucous Membr. moist/pink Neck: Supple, No JVD Lymphatic: Cervical nl Cardiovascular: Normal S1, Normal S2 Lungs: Normal Air Movement Abdomen: Normal Bowel Sounds, Soft, No Tenderness Extremities: No Clubbing, No Cyanosis, No Edema Vascular: Pulses Symmetrical Current Medications: Current Medications Sig/Ry Start time Last Medication Dose Route Stop Time Status Admin Acetaminophen 650 MG Q4P PRN 10/01 1030 DCD 10/02 PO 1326 Albuterol Sulfate 3 ML EVERY 4 HRS/AWAKE 09/02 1999 DCD 10/04 INH 1131 Albuterol Sulfate 3 ML Q4H PRN 08/27 1000 DCD 08/28 INH 1309 Alprazolam 0.25 MG TID PRN 10/02 1715 DCD 10/04 PO 10/09 1714 1231 Enoxaparin Sodium 40 MG DAILY 09/03 1000 DCD 10/04 SC 0748 Gabapentin 300 MG Q8 PRN 10/03 1441 DCD PO Guaifenesin 600 MG Q12 09/25 2200 DCD 10/04 PO 0747 Lorazepam 1 MG DAILY NEEDED PRN 09/30 1630 DCD 09/30 PO 2037 Magnesium Oxide 400 MG DAILY 09/12 1000 DCD 10/04 PO 0747 Melatonin 10 MG AT BEDTIME 09/27 2200 DCD 10/03 PO 2100 Metronidazole 500 MG Q8 09/30 1400 DCD 10/04 PO 0442 Omeprazole 40 MG DAILY AC 09/28 1144 DCD 10/04 PO 0442 Ondansetron HCl 4 MG ONCE ONE 10/04 0930 DC 10/04 IV 10/04 0931 0933 Oxycodone/ 1 TAB Q8P PRN 10/02 1715 DCD 10/04 Acetaminophen PO 1231 Potassium Chloride 20 MEQ 2200 09/26 2200 DCD 10/03 PO 2100 Sertraline HCl 150 MG DAILY 10/04 1000 DCD 10/04 PO 10/09 1100 0747 Sodium Chloride 2 SPRAY Q4P PRN 09/24 2130 DCD ANIL Trazodone HCl 200 MG AT BEDTIME 09/07 2200 DCD 10/03 PO 2100 Assessment/Plan Assessment: Ms. Camacho is a 60 year old female with PMH anxiety, depression, COPD , prior episode of severe clostridium difficile infection in 2016, tobacco abuse and gastritis who presented to the [place] [facility] ED after one week of altered mental status, decreased oral intake and possible withdrawl symptoms as her clonazepam was being titrated off per doctor instructions. She was found to be hypotensive, febrile and altered while in the [facility] ED. In the ED: Vital signs showed Tmax 101.5, HR 116, RR 20, BP 93/62 and O2 saturation 90% on room air. Labs were significant for WBC 18.1 with 37 bands, H&H 13.7/41.6, Plt 623, Na 143 , K 3.6, Cl 107, HCO3 16, BUN/cre 28/1.8, Glu 98, Lactic acid 2.9, AST 62, ALT 42, CK 370, troponin 0.05, proBNP 78256, amylase 153, lipase <10, and UA with high protein, positive nitrite, high urobilinogen, 50 WBCs, moderate bacteria and large hgb. CXR showed no acute pulmonary process. Head CT was negative for acute pathology. Patient was admitted to the ICU for severe sepsis and transferred to general medicine floor on 09/30/2016 1. Severe sepsis secondary to peritonitis from perforated sigmoid colon with abscess formation: Patient febrile, leukocytosis with bandemia, hypotensive and tachycardic on admission. She was griggs-cultured and started on empiric antibiotic therapy with IV unasyn and ceftriaxone. ID consult with Dr. Alycia MD placed. She was placed on pressors for blood pressure support. CT abdomen/pelvis showed free intra-abdominal air and patient was taken to the OR with Dr. Marcello MD for exploratory laparotomy. Patient tolerated Ho's procedure well with noted sigmoid resection and end colostomy well. She was switched to IV flagyl and IV ceftriaxone given concern for previous history of clostridium difficile. Surgery followed patient daily and continued to advice on management of continued intra- abdominal infection. Blood cultures showed no growth, lower respiratory culture grew pseudomonas and culture from OR grew E.Coli, alpha/beta strep and brandon. As lower respiratory culture pseudomonas was resistent to zosyn, patient was placed on IV fluconazole and IV meropenem for complete coverage. Patient had repeat abdominal CT scan which demarcated fluid collections. IR placed one RUQ drain and one LLQ drain to drain this fluid. LLQ was subsequently taken out but the RUQ drain remains in place with continued purulent drainage. Patient hypotensive overnight 09/11/16-09/12/16 and was started on levophed again. Due to this and noted hypoxia, follow up CTA to rule out PE and follow up abdominal/ pelvis CT with IV and PO contrast ordered. Please follow up the results of these two tests, continue to follow ID/surgical recommendations and please continue IV antibiotics to completion. Subsequently the right upper quadrant drain was also removed. Her respiratory status continued to improve and she was extubated. She continued to be on BiPAP intermittently initially after extubation as her respiratory rate would continue to stay high, with component of anxiety contributing as well. Eventually after 2-3 days of BiPAP post extubation, she was then transitioned to nasal cannula. She was planned for discharge to rehabilitation. 2. Metabolic encephalopathy: Likely due to sepsis with gross peritonitis. All home psychotropic medications held on admission and psychiatric consult placed. It was suggested to not resume these medications until mental status back to baseline. As IV antibiotics adjusted and patient came off of pressors, her mental status returned to baseline and patient completely alert and oriented as well as able to follow commands. Home psychotropics resumed. There was also a component of anxiety and psychiatry was consulted. * zoloft increased 150 mg every day Till 10/09/2016, then take Zoloft 200 mg every day * Gabapentin dose increased to 300 mg 3 times a day as required for anxiety * Home medications propranolol, hydroxyzine, Paxil were stopped * And was advised to follow-up with care for further psychiatric care 3. Acute hypoxic respiratory failure: Patient initially placed on non-rebreather as O2 saturation on admission of 90% on room air. She was transitioned to high flow nasal cannula/BiPAP due to tachypnea/apparent respiratory distress but was intubated for Ho's procedure with Dr. Marcello MD. Patient had noted bilateral pleural effusions seen on chest CT and had a thoracentesis by IR on . Patient was continued on the mechanical ventilator as she becomes tachypneic and slightly anxious during weaning trials. She was found to have a iatrogenic pneumothorax after draining the fluid therefore she had the chest tube placed for treatment of pneumothorax. Serial chest x-rays were done with resolution of the pneumothorax after with the chest tube was removed. Initially patient did not do very good on the PSV trial, and needed repeated Ativan doses to calm down her anxiety, however after 3 days, she had successful weaning trial and therefore was extubated. Day 1 after extubation she did become short of breath and respiratory rate increased however after placing her on the BiPAP she was more stable, she was low threshold of reintubating at that point however she continued to do good on BiPAP, eventually transitioned to nasal cannula plan to discharge to pulmonary rehabilitation center for continued pulm rehab. 4. SIERRA: On admission, BUN/cre elevated to 28/1.8. This was likely prerenal in the setting of severe sepsis. Patient given IV fluids and renal function improved. We continued to monitor strict Is/Os and monitored renal function daily. Fluids were ultimately tapered off as patient appeared fluid overloaded with bilateral pedal edema and anasarca. * SIERRA resolved 5. Sinus tachycardia with minor T wave changes: Minor T wave changes noted on initial EKG. ACS as ruled out with troponin/EKG x 3. Echocardiogram was performed and showed normal global left ventricular function without wall motion abnormalities and normal pulmonary artery systolic pressure. 6. Thrombocytosis: On admission, patient had thrombocytosis to 623. She subsequently dropped rapidly with jenifer of 89. DVT prophylaxis was discontinued at that time and platelet count was monitored closely. 4Ts score placed patient at low risk for HIT (<5%). Acute drop likely represented coagulopathy from ongoing sepsis. Platelet count returned to normal and patient again has thrombocytosis. She was placed back on DVT prophylaxis with SC lovenox on 09/02. * Platelet count 592 today 7. Acute blood loss anemia: Noted anemia after Granger's procedure. She has had her CBC trended and a total of 4 units PRBCs delivered to date. No evidence of acute bleeding was appreciated. He did not receive any more blood transfusions after that and her H&H remained stable. * Had total of 4 U PRBC since admission. * Stable H&H-8.6 and 27 * Normocytic anemia with Serum iron 19(L), TIBC 208(L), ferritin 296(H). This point towards early stage anemia of chronic disease. * B12 and folic acid within normal limits 8. Abnormal thyroid function tests * 3 days ago TSH was found to be 10 with a normal T4 and low T3, repeated TSH showed improvement however still high. * Antibodies panel was negative. * We will instruct patient to repeat thyroid function tests after 1 month 9. C. difficile diarrhea patient is complaining of lower abdominal pain and colostomy bag is filled with gas and watery stool. * WBC count elevated to 12,000, remained afebrile * Stool C. difficile is positive * Started on Flagyl 800 mg every 8 hours day5 Code: FULL DVTP: SC lovenox pain pathway Regular diet Problem List: 1. Sepsis 2. Diverticulosis of colon 3. History of Clostridium difficile infection Pain Ratin Pain Location: n/a Pain Goal: Remain pain free Pain Plan: tylinol Tomorrow's Labs & Rationales: none DENNY TORRES MD 06/27/17 2115: Attending MD Review Statement Attending Statement Attending MD Statement: examined this patient, discuss w/resident/PA/HARDBOARD COATING MACHINE OPERATOR, agreed w/resident/PA/HARDBOARD COATING MACHINE OPERATOR, reviewed EMR data (avail), discussed with nursing, discussed with case mgmt, amended to note Attending Assessment/Plan: The patient was seen and discussed with house staff. Agree with plan of care as outlined. OK to transfer to [facility].
--- NOTE | 2016-10-04 10:19 | PN- General Surgery ---
Surgical Brief Attending Note Brief Attending Note: Usual timing of colostomy reversal is three months from index operation. However , she needs to be fully independent of ADLs and off supplemental oxygen for this to occur.
[2016-10-04] MEDS ORDERED: ALBUTEROL2.5 MG/3 M INH ×4 (10:33→11:39)
[2016-10-04] MEDS ORDERED: ZOLOFT100 M1 PO (10:33)
[2016-10-04] MEDS ORDERED: FLAGYL250 M1 PO (10:33)
[2016-10-04] MEDS ORDERED: GUAIFENESIN ER600 MG PO (10:33)
[2016-10-04] MEDS ORDERED: MAGNESIUM OXID400 M1 PO (10:33)
[2016-10-04] MEDS ORDERED: OMEPRAZOLE20 M2 PO (10:33)
[2016-10-04] MEDS ORDERED: MELATONIN5 M7 PO (10:33)
[2016-10-04] MEDS ORDERED: GABAPENTIN300 M2 PO (10:33)
--- NOTE | 2016-10-04 10:59 | PN- Pulmonary ---
Subjective HPI/Critical Care Issues: pt seen and examined doing much better on 4LNC Objective Current Medications: Current Medications Sig/Ry Start time Last Medication Dose Route Stop Time Status Admin Acetaminophen 650 MG Q4P PRN 10/01 1030 AC 10/02 PO 1326 Albuterol Sulfate 3 ML EVERY 4 HRS/AWAKE 09/01 2000 AC 10/04 INH 0809 Albuterol Sulfate 3 ML Q4H PRN 08/27 1000 AC 08/28 INH 1309 Alprazolam 0.25 MG TID PRN 10/02 1715 AC 10/04 PO 10/09 1714 0747 Enoxaparin Sodium 40 MG DAILY 09/03 1000 AC 10/04 SC 0748 Gabapentin 300 MG Q8 PRN 10/03 1441 AC PO Gabapentin 100 MG Q8 PRN 09/28 2100 DC 10/02 PO 0729 Guaifenesin 600 MG Q12 09/25 2200 AC 10/04 PO 0747 Lorazepam 1 MG DAILY NEEDED PRN 09/30 1630 AC 09/30 PO 2037 Magnesium Oxide 400 MG DAILY 09/12 1000 AC 10/04 PO 0747 Melatonin 10 MG AT BEDTIME 09/27 2200 AC 10/03 PO 2100 Metronidazole 500 MG Q8 09/30 1400 AC 10/04 PO 0442 Omeprazole 40 MG DAILY AC 09/28 1144 AC 10/04 PO 0442 Ondansetron HCl 4 MG ONCE ONE 10/04 0930 DC 10/04 IV 10/04 0931 0933 Oxycodone/ 1 TAB Q8P PRN 10/02 1715 AC 10/04 Acetaminophen PO 0351 Potassium Chloride 20 MEQ 0 09/26 2200 AC 10/03 PO 2100 Sertraline HCl 150 MG DAILY 10/04 1000 AC 10/04 PO 10/09 1100 0747 Sertraline HCl 100 MG DAILY 09/27 1000 DC 10/03 PO 0912 Sodium Chloride 2 SPRAY Q4P PRN 09/24 2130 AC ANIL Trazodone HCl 200 MG AT BEDTIME 09/07 2200 AC 10/03 PO 2100 Vital Signs & I&O Last 24 Hrs of Vitals and I&O: Vital Signs Date Time Temp Pulse Resp B/P B/P Pulse O2 O2 Flow FiO2 Mean Ox Delivery Rate 10/04 0810 96 Nasal 4.0L Cannula 10/04 0628 98.5 80 20 118/58 93 Nasal 5.0L Cannula 10/04 0034 97 Nasal 5.0L Cannula 10/03 2208 98.6 70 20 108/56 97 Nasal 5.0L Cannula 10/03 1651 96 Nasal 5.0L Cannula 10/04 1599 Nasal 5.0L Cannula 10/03 1433 98.7 79 22 100/50 97 Nasal 5.0L Cannula Intake & Output 10/04 1600 10/04 0800 10/04 0000 Intake Total 240 240 Output Total 1300 700 Balance -1060 -460 Intake, Oral 240 240 Output, Stool 100 Output, Urine 1300 600 Exam Other Physical Findings: gen awake heent ncat cvs s1, s2 lungs rare rhonchi abd soft, bs+ ext no edema Impression/Plan Impression/Plan Impression/Plan: Impression 60 year old woman * hypoxemic respiratory failure improved * s/p pericolic abscess s/p drainage and sigmoid colectomy with end colostomy * c.diff Plan -Reduce fio2 as tolerated to a goal spo2 of >88% -reduce nebs to 3 times a day and as needed -f/u surgery regarding colostomy reversal -f/u ID for c.diff tx -rehab plan DVT prophylaxis at all times
[2016-10-04 12:49] VITALS: BP 118/58
--- NOTE | 2016-10-04 15:13 | NUR ---
Late Entry: Aware of patients discharge home today. I had been meeting with patients sisterMaude regarding [employer] for [employer], and application has been submitted for same. Today, electronic order was received as patient is nervous about ostomy and wishes to be able to speak with others who have them. Met with patient briefly this morning. Patient eager for transfer to [place]; reassurance and encouragement provided. Reminded her that upon discharge from [place], resources to find a support group would be provided to her if she requested. Patient verbalized concern.
== END 2016-10-04 13:00 | DRG 853 ==
LOC: ERH 14:05 → CRI 23:04 → ERHI 23:04 → 2NB 23:04 → CANRESERV 23:49 → ENRESERV 23:49 → EDBEDREQ 08-26 01:07 → ERHI 08-26 01:12 → ENRESERV 08-26 01:35 → CRI 08-26 03:06 → 2NB 09-30 21:09 → ENPENDDIS 10-04 10:36 → 2NB 10-04 13:00
PROVIDERS: Dermatology; Emergency Medicine; Hospitalist; Internal Medicine; Ophthalmology; Physician Assistant Surgical; Student in an Organized Health Care Education/Training Program; ADMIT Internal Medicine Critical Care Medicine
PROC: 0DTN0ZZ Resection of Sigmoid Colon, Open Approach (ICD-10-PCS; principal; 2016-08-26)
PROC: 5A1955Z Respiratory Ventilation, Greater than 96 Consecutive Hours (ICD-10-PCS; 2016-08-26)
PROC: 0D1M0Z4 Bypass Descending Colon to Cutaneous, Open Approach (ICD-10-PCS; 2016-08-26)
PROC: 0BH17EZ Insertion of Endotracheal Airway into Trachea, Via Natural or Artificial Opening (ICD-10-PCS; 2016-08-26)
PROC: 0W9G30Z Drainage of Peritoneal Cavity with Drainage Device, Percutaneous Approach (ICD-10-PCS; 2016-09-01)
PROC: 0W993ZZ Drainage of Right Pleural Cavity, Percutaneous Approach (ICD-10-PCS; 2016-09-02)
PROC: 0W9B3ZZ Drainage of Left Pleural Cavity, Percutaneous Approach (ICD-10-PCS; 2016-09-13)
DX: A41.9 Sepsis, unspecified organism (principal); J96.01 Acute respiratory failure with hypoxia; G93.41 Metabolic encephalopathy; J90 Pleural effusion, not elsewhere classified; J15.1 Pneumonia due to Pseudomonas; N17.9 Acute kidney failure, unspecified; E46 Unspecified protein-calorie malnutrition; R18.8 Other ascites; N39.0 Urinary tract infection, site not specified; D62 Acute posthemorrhagic anemia; K57.20 Diverticulitis of large intestine with perforation and abscess without bleeding; J95.811 Postprocedural pneumothorax; F32.9 Major depressive disorder, single episode, unspecified; Z68.22 Body mass index [BMI] 22.0-22.9, adult; E83.42 Hypomagnesemia; D69.6 Thrombocytopenia, unspecified; B96.20 Unspecified Escherichia coli [E. coli] as the cause of diseases classified elsewhere; Y84.4 Aspiration of fluid as the cause of abnormal reaction of the patient, or of later complication, without mention of misadventure at the time of the procedure
CPT/HCPCS: 2NBP; 84133; 84300; 87070; 87075; CCU; ERO; 36415; 74000; 74176; 74177; 74230; 77012; 78226; 80307; 81001; 82436; 82570; 86376; 86800; 86920; 87040; 87045; 87071; 87086; 87147; 88305; 88307; 93005; 93010; 93306; 93970; 94799; 96361; 96365; 97110-GO; 97112-GO; 97116-GO; 97163-GP; 97530-GO; A9537; C1769; G0480; J0131; J0696; J1450; J1644; J1650; J1940; J2060; J2185; J2250; J2270; J2405; J2543; J2930; J2997; J3010; J3490; J7040; J7042; J7060; J7608; P9016

== ENCOUNTER 2016-10-29 11:11 | Inpatient (IN) | payer OTHER, MEDICARE ==
[~2016-10-29] VITALS: Ht 160 cm; Wt 56.7 kg
[~2016-10-29 11:11] MED LIST changes: +ALBUTEROL2.5 MG/3 M INH; +BACLOFEN10 M1 PO; +CLONAZEPAM0.5 M2 PO; +FLAGYL250 M1 PO; +GABAPENTIN300 M2 PO; +GUAIFENESIN ER600 MG PO; +HYDROXYZINE HCL25 M2 PO; +MAGNESIUM OXID400 M1 PO; +MELATONIN5 M7 PO; +OMEPRAZOLE20 M2 PO; +PROPRANOLOL HCL10 M1 PO; +SERTRALINE HCL100 MG PO; +SYMBICORT 16010.2 GM INH; +TRAMADOL HCL50 M1 PO; +TRAZODONE HCL100 M1 PO; +VENTOLIN HFA18 GM INH; +ZOLOFT100 M1 PO
--- NOTE | 2016-10-29 11:26 | NUR ---
PT STATES SHE IS COLD AND SHAKING AND CALLED SHE CALLED HER VISITING NURSE AND THEY TOLD HER TO COME TO ED. PT HAS INCREASED HER LASIX YESTERDAY PER HER FOR INCREASED SWELLING IN HER LEGS. PT REPORTS HAVING A FEVER.
--- NOTE | 2016-10-29 11:29 | NUR ---
PT MEDICATED IN TRIAGE FOR TEMP 02 SAT 86% RA IN TRIAGE
--- NOTE | 2016-10-29 11:45 | NUR ---
PT IN ROOM C/O PAIN TO LFT ANKLE 11/17. CAME INTO ED BECAUSE OF SHIVERING, FEELING COLD AND TEMP OF 102. CURRENT O2 SAT 85% RA STATED THAT SHE HAS COPD BUT DOES NOT USE O2 AT HOME. TEMP OF 103 AND FEELING WARM TO TOUCH BP 127/64 RR18 AND PULSE OF 103. ELMA SEGURA MADE AWARE.
--- NOTE | 2016-10-29 11:49 | ED GENERAL ADULT ---
History of Present Illness General Chief Complaint: Fever Stated Complaint: FEVER, LEFT LEG PAIN Source: patient Exam Limitations: no limitations Vital Signs & Intake/Output Vital Signs & Intake/Output Vital Signs Date Time Temp Pulse Resp B/P B/P Pulse O2 O2 Flow FiO2 Mean Ox Delivery Rate 10/29 1610 100.2 83 18 82/50 92 Nasal 3.0L Cannula 10/29 1521 100.2 90 90/56 10/29 1349 101.6 10/29 1251 86 Nasal 3.0L Cannula 10/29 1249 102.5 10/29 1129 102.5 10/29 1126 102.5 112 20 113/71 Allergies Coded Allergies: azithromycin (Intermediate, NAUSEA AND VOMITING 08/26/16) Reconcile Medications Aclidinium Mustang (Tudorza Pressair) 400 MCG/ACTUATION AER.POW.BA 1 PUFF PO BID BREATHING PROBLEMS (Reported) Albuterol Sulfate (Ventolin Hfa) 90 MCG HFA.AER.AD 2 PUF INH Q8P PRN COPD ( Reported) Albuterol Sulfate 2.5 MG/3 ML (0.083 %) VIAL.NEB 3 ML INH Q8P PRN SHORTNESS OF BREATH . Baclofen 10 MG TABLET 1 TAB PO UNKNOWN (Reported) Budesonide/Formoterol Fumarate (Symbicort 160-4.5 Mcg Inhaler) 160 MCG-4.5 MCG/ ACTUATION HFA.AER.AD 2 PUF INH BID BREATHING PROBLEMS (Reported) Clonazepam 0.5 MG TABLET 1 TAB PO BID ANXIETY (Reported) Docusate Sodium (Colace) 100 MG CAPSULE 1 CAP PO BID CONSTIPATION (Reported) Furosemide 20 MG TABLET 1 TAB PO DAILY WATER RETENTION (Reported) Gabapentin (Neurontin) 300 MG CAPSULE 1 CAP PO TID ANXIETY (Reported) Magnesium Oxide 400 MG TABLET 400 MG PO DAILY supplement . Melatonin 3 MG TABLET 3 TAB PO QPM SLEEP (Reported) Oxycodone HCl/Acetaminophen (Percocet 5-325 MG Tablet) 5 MG-325 MG TABLET 1 TAB PO Q4 HRS NEEDED PRN PAIN (Reported) Pantoprazole Sodium 40 MG TABLET.DR 1 TAB PO DAILY ACID REFLUX (Reported) Polyethylene Glycol 3350 (Miralax) 17 GRAM POWD.PACK 1 PAC PO DAILY PRN CONSTIPATION (Reported) dissolve in water Sertraline HCl (Zoloft) 100 MG TABLET 2 TAB PO DAILY DEPRESSION (Reported) Trazodone HCl 100 MG TABLET 2 TAB PO QPM SLEEP (Reported) Triage Note: PT STATES SHE IS COLD AND SHAKING AND CALLED SHE CALLED HER VISITING NURSE AND THEY TOLD HER TO COME TO ED. PT HAS INCREASED HER LASIX YESTERDAY PER HER FOR INCREASED SWELLING IN HER LEGS. PT REPORTS HAVING A FEVER. Triage Nurses Notes Reviewed? yes Onset: Abrupt Duration: day(s): (1), constant, continues in ED, getting worse Timing: single episode today Severity: mild, moderate Severity Numbers: 6 No Modifying Factors: none LMP (ages 10-50): post menopausal : No Patient currently breastfeeds: No HPI: 61-year-old female with a past medical history of COPD presents complaining of fever, chills, body aches, shortness of breath and cough for the past day. Patient states that she was feeling well until this morning when she woke up and symptoms started. She reports cough productive of clear sputum and shortness of breath. She also reports pain and swelling in both of her legs worsening left side this is been going on for the past few weeks. She talked to her primary care doctor yesterday who recommended increasing her Lasix which she did. She denies any chest pain, hemoptysis, abdominal pain, nausea, vomiting, diarrhea sick contacts, recent travel, back pain, urinary symptoms or any other associated symptoms. She is not taken any medicine for the pain. She rates the pain as a 6 out of 10 in her left leg. Pain does not radiate there is no trauma to the left leg. (ZINA SEGURA PA-C) Past History Travel History Traveled to [place] past 21 day No Medical History Any Pertinent Medical History? see below for history Neurological: NONE EENT: NONE Cardiovascular: NONE Respiratory: COPD Gastrointestinal: gastritis, HP-neg C Difficile 2016 diverticulosis coli Colonic SSP/adenoma/TA COLOSTOMY Hepatic: NONE Renal: SIERRA (? 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 No (ZINA SEGURA PA-C) Review of Systems Review of Systems Constitutional: Reports: no symptoms, chills, fever, malaise. EENTM: Reports: no symptoms. Respiratory: Reports: see HPI, cough, short of breath. Cardiovascular: Reports: see HPI, edema. GI: Reports: no symptoms. Genitourinary: Reports: no symptoms. Musculoskeletal: Reports: no symptoms. Skin: Reports: no symptoms. Neurological/Psychological: Reports: no symptoms. Hematologic/Endocrine: Reports: no symptoms. Immunologic/Allergic: Reports: no symptoms. All Other Systems: Reviewed and Negative (ZINA SEGURA PA-C) Physical Exam Physical Exam General Appearance: well developed/nourished, alert, awake, anxious, mild distress Head: atraumatic, normal appearance Eyes: Bilateral: normal appearance, PERRL, EOMI. Ears, Nose, Throat: normal pharynx, normal ENT inspection, hearing grossly normal Neck: normal inspection, supple, full range of motion Respiratory: chest non-tender, no respiratory distress, crackles (LLL) Cardiovascular: regular rate/rhythm, normal peripheral pulses Peripheral Pulses: 2+ radial (R), 2+ radial (L), 2+ dorsalis pedis (R), 2+ dorsalis pedis (L) Gastrointestinal: normal bowel sounds, soft, non-tender, no organomegaly Back: normal inspection, normal range of motion, no vertebral tenderness Extremities: normal inspection, normal capillary refill, normal range of motion, no edema, calf tenderness (LEFT LOWER EXTREMITY) Neurologic/Psych: no motor/sensory deficits, awake, alert, oriented x 3, normal gait, normal mood/affect Reflexes: 2+: knee (R), knee (L). Skin: intact, normal color, warm/dry Lymphatic: no anterior cervical jyoti Core Measures ACS in differential dx? No CVA/TIA Diagnosis: No Severe Sepsis Present: Yes BC x2: Yes Lactic Acid x2: Yes IV ABX Broad Spectrum: Yes NS/LR Started: Yes Septic Shock Present: No (ZINA SEGURA PA-C) Progress Differential Diagnoses I considered the following diagnoses in my evaluation of the patient: [Pneumonia , UTI, pulmonary embolus, COPD exacerbation, DVT, acute coronary syndrome] Plan of Care: Orders Procedure Date/time Status Regular Diet 10/30 B Active LACTIC ACID 10/30 0600 Active CBC WITHOUT DIFFERENTIAL 10/30 0600 Active BASIC ELECTROLYTES PLUS BUN&CR 10/30 0600 Active Regular Diet 10/29 D Complete LACTIC ACID 10/29 1634 Active TRC EVALUATION (GEN) 10/29 1622 Active Pathway - chart 10/29 1622 Active House Staff 10/29 1622 Active Patient Data 10/29 1622 Active Code Status 10/29 1622 Active LACTIC ACID 10/29 1503 Active Patient Data 10/29 1406 Active OXYGEN SETUP (GEN) 10/29 1346 Active Saline Lock 10/29 1346 Active Admit to inpatient 10/29 1346 Active Vital Signs 10/29 1346 Active Activity/Ambulation 10/29 1346 Active Code Status 10/29 1346 Complete Add-on Test (ER Only) 10/29 1335 Active CULTURE,URINE 10/29 1240 Active BLOOD CULTURE 10/29 1222 Active URINALYSIS 10/29 1203 Complete TROPONIN LEVEL 10/29 1203 Complete LACTIC ACID 10/29 1203 Complete D-DIMER 10/29 1203 Complete C-REACTIVE PROTEIN 10/29 1203 Complete COMPREHENSIVE METABOLIC PANEL 10/29 1203 Complete CBC WITHOUT DIFFERENTIAL 10/29 1203 Complete B-TYPE NATRIURETIC PEP (BNP) 10/29 1203 Complete EKG 10/29 1203 Active VTE Mechanical Prophylaxis 10/29 UNK Active Vital Signs 10/29 UNK Active Intake & Output 10/29 UNK Active Activity/Ambulation 10/29 UNK Active Current Medications Sig/Ry Start time Last Medication Dose Stop Time Status Admin Magnesium Oxide 400 MG DAILY 10/30 1000 UNVr (Mag-Ox) Meropenem 1 GM IQ8 10/30 0000 AC (MEROPENEM) Budesonide/ 2 PUF BID 10/29 2200 UNVr Formoterol Fumarate (Symbicort) Trazodone HCl 200 MG QPM 10/29 2200 UNVr (Desyrel) Clonazepam 0.5 MG BID PRN 10/29 1645 UNVr (KlonoPIN) 11/059 Docusate Sodium 100 MG BID PRN 10/29 164 UNVr (Colace) Melatonin 9 MG QPM PRN 10/29 1645 UNVr (Melatonin) Polyethylene Glycol 17 GM DAILY PRN 10/29 1645 UNVr (Miralax) Sodium Chloride 1,000 ML BOLUS ONE 10/29 1645 UNVr (Normal Saline 0.9%) 10/29 1744 Acetaminophen 1,000 MG Q6P PRN 10/29 1630 AC (Ofirmev) Albuterol Sulfate 3 ML Q8P PRN 10/29 1630 UNVr (Proventil) Albuterol Sulfate 2 PUF Q8P PRN 10/29 1630 UNVr (Ventolin) Ibuprofen 600 MG Q6P PRN 10/29 1630 AC (Motrin) Morphine Sulfate 2 MG Q4P PRN 10/29 1630 AC (Morphine) Omeprazole 40 MG DAILY AC PRN 10/29 1630 UNVr (Prilosec) Sertraline HCl 200 MG DAILY 10/29 1628 UNVr (Zoloft) Gabapentin 300 MG TID 10/29 162 UNVr (Neurontin) Enoxaparin Sodium 30 MG DAILY 10/29 1619 UNVr (Lovenox) Azithromycin 500 MG ONCE ONE 10/29 1345 CAN (Zithromax) 10/29 1444 Sodium Chloride 250 ML (Normal Saline 0.9%) Ceftriaxone Sodium 1,000 MG ONCE ONE 10/29 1345 CAN (Rocephin) 10/29 1346 Laboratory Tests 10/29/16 1618: Lactic Acid Pending 10/29/16 1220: Anion Gap 14, Estimated GFR > 60, BUN/Creatinine Ratio 26.3 H, Glucose 81, Lactic Acid 3.2 H, Calcium 9.4, Total Bilirubin 0.3, AST 26, ALT 30, Alkaline Phosphatase 80, Troponin I < 0.01, C-Reactive Prot, Quant 1.2 H, Pro-B- Natriuretic Pept 491 H, Total Protein 7.0, Albumin 3.6, Globulin 3.4, Albumin/ Globulin Ratio 1.1, D-Dimer High Sensitivty 753 H, CBC w Diff MAN DIFF ORDERED, RBC 3.44 L, MCV 95.3, MCH 30.9, RDW 17.4 H, MPV 7.0 L, Gran % 85.0 H, Lymphocytes % 10.7 L, Monocytes % 3.8, Eosinophils % 0.3, Basophils % 0.2, Absolute Granulocytes 14.5 H, Segmented Neutrophils 77 H, Band Neutrophils 5, Absolute Lymphocytes 1.8, Lymphocytes 10 L, Monocytes 7, Absolute Monocytes 0.7 H, Absolute Eosinophils 0, Basophils 1, Absolute Basophils 0, Platelet Estimate VERIFIED BY SMEAR, Anisocytosis 1+, PUBS MCHC 32.5 L, Urine Color YEL, Urine Clarity CLEAR, Urine pH 6.0, Ur Specific Jefferson 1.010, Urine Protein NEG, Urine Ketones NEG, Urine Nitrite NEG, Urine Bilirubin NEG, Urine Urobilinogen 0.2, Ur Leukocyte Esterase MOD H, Ur Microscopic SEDIMENT EXAMINED, Urine RBC 1-3, Urine WBC 15-25 H, Ur Epithelial Cells RARE, Urine Bacteria MOD H, Urine Mucus RARE, Micro UA Comment MORE INFO: H, Urine Hemoglobin NEG, Urine Glucose NEG Microbiology 10/29 1515 BLOOD: Blood Culture - RECD 10/29 1240 URINE ROUT: Urine Culture - RECD 10/29 1235 BLOOD: Blood Culture - RECD Patient seen and evaluated. There are crackles located in the left lower lobe. This may represent a pneumonia. Patient will have a chest x-ray blood work including cultures and lactate. She is currently febrile to 102.5. She had 650 of Tylenol given at triage. We'll continue to monitor patient in follow-up on results. 1:30 PM: Patient has an elevated white blood cell count elevated lactate. Urine is showing signs of infection and patient may also have pneumonia VS COPD exacerbation. She will receive IV fluids at a rate of 30 mL/kg. FORTAZ and VANCO IV will be started patient will also be given a dose of 15 mg of IV Toradol. Patient has a history of Pseudomonas growth in her sputum in the past. Chest x-ray was negative for pneumonia however there is a strong clinical suspicion. Patient will have a CTA of her chest to rule out pulmonary embolism and to also for pneumonias. Patient will likely require admission for IV antibiotics and monitoring. 1:[address] Keen. pt will be admitted for IV antibiotics, IV fluids, serial labs, serial imaging, pulmonology consult, oxygen, monitoring of vital signs. 3:50 PM: CT scan of the chest is negative for PE but does confirm a left lower lobe pneumonia. This make sense clinically with crackles coughing and fever. Patient be admitted to general medicine. (COLTON MCKEON,ZINA) Diagnostic Imaging: Viewed by Me: Radiology Read, CT Scan, Ultrasound. Discussed w/RAD: Radiology Read, CT Scan, Ultrasound. Initial ED EKG: SINUS RHYTHM, BORDERLINE T WAVE ABN, BORDERLINE LAD Prior EKG: unchanged Comments: PATIENT: YNES TODD PRESENT AGE: 61 PATIENT ACCOUNT NO: [id number] : 54 LOCATION: [facility] ORDERING PHYSICIAN: ZINA SEGURA PA-C SERVICE DATE: 10/29/16 EXAM TYPE: US - US-DUPLEX VENOUS EXTREM UNI EXAMINATION EXAMINATION: DOPPLER VENOUS ULTRASOUND EXTREMITY, LEFT CLINICAL INFORMATION: Left lower extremity edema. COMPARISON: None. TECHNIQUE: Grayscale, Doppler and spectral analysis of the lower extremity was performed. FINDINGS: There is no evidence for a deep venous thrombosis within the visualized lower extremity veins. There is normal flow, compression and augmentation. ADDITIONAL FINDINGS: No Bhardwaj's cyst is identified. IMPRESSION: Unremarkable examination. Specifically, no evidence for DVT. DICTATED BY: DENNY BURNETT MD DATE/TIME DICTATED:10/29/161320 UTILIZATION SPECIALIST:AMY DATE/TIME TRANSCRIBED:10/29/161320 PATIENT: YNES TODD PRESENT AGE: 61 PATIENT ACCOUNT NO: [id number] : 53 LOCATION: [facility] ORDERING PHYSICIAN: ZINA SEGURA PA-C SERVICE DATE: 10/29/16 EXAM TYPE: CAT - CTA CHEST-PULMONARY EMBOLISM EXAMINATION: CT ANGIOGRAM CHEST WITHOUT AND WITH CONTRAST (CT PULMONARY ANGIOGRAM FOR PE) CLINICAL INFORMATION: Shortness of breath, hypoxia and fever. Crackles left lower lobe. COMPARISON: Chest x-ray from earlier the same day and CT of the chest, abdomen and pelvis 09/20/2016. TECHNIQUE: Prior to contrast administration, noncontrast localization images were obtained. Subsequently, multidetector volumetric imaging was performed from the thoracic inlet to below the diaphragms following the administration of 95 mL Optiray 320 intravenous contrast. No contrast reaction reported. Sagittal, coronal, and MIP oblique sagittal reformatted images were obtained on the CT workstation, uploaded to PACS, and reviewed. TOTAL EXAM DLP: 221 mGy-cm FINDINGS: QUALITY OF STUDY/CONTRAST BOLUS: Satisfactory PULMONARY ARTERIES: There is good opacification of the pulmonary arteries. No pulmonary embolism is seen. THORACIC AORTA: No aneurysm or dissection. LUNG: There is left lower lobe airspace disease with air bronchograms most suggestive of pneumonia. There is atelectasis or small infiltrate in the right lower lobe, right middle lobe and inferior segment of the lingula. There is a small 2 x 5 mm peripheral or subpleural right lower lobe nodule adjacent to the major fissure, axial image 269 series 2. PLEURA: There is a small right pleural effusion. There is a trace left pleural effusion. MEDIASTINUM: Normal heart size. No pericardial effusion. No hilar or mediastinal lymphadenopathy. No evidence of septal bowing or right heart strain. CHEST WALL/AXILLA: No axillary or internal mammary lymphadenopathy. OSSEOUS STRUCTURES: There are degenerative changes of the spine and curvature of the proximal lumbar spine to the left. UPPER ABDOMEN: There is abnormal low-attenuation soft tissue and fluid seen under the right hemidiaphragm adjacent to the right lobe of the liver. The previously identified drainage catheter has been removed. There are stable low-attenuation liver lesions suggestive of cysts that are stable. The liver may be enlarged. There is question of new decreased attenuation seen in the periportal region and upper retroperitoneum, for example axial images 59-62. This could be better evaluated with dedicated abdominal CT scan if clinically indicated. Images through the upper abdomen are otherwise unremarkable. No reflux of contrast into the hepatic veins to suggest elevated right heart pressures. IMPRESSION: Left lower lobe pneumonia. Small infiltrate or atelectasis in the right lower lobe, inferior segment of the lingula and right middle lobe. Persistent fluid and abnormal soft tissue seen under the right hemidiaphragm adjacent to the right lobe of the liver. Question new increasing low attenuation in the periportal region and upper abdominal retroperitoneum. This could be better evaluated with CT of the abdomen if clinically indicated. VTE: Negative DICTATED BY: MIRIAN DUPONT MD DATE/TIME DICTATED:10/29/161427 UTILIZATION SPECIALIST:AMY DATE/TIME TRANSCRIBED:10/29/161427 (ZINA SEGURA PA-C) Departure Departure Disposition: STILL A PATIENT Condition: Stable Clinical Impression Primary Impression: Hypoxia Referrals: ROVERTO MONTENEGRO MD (PCP/Family) Departure Forms: Customer Survey General Discharge Information Admission Note Spoke With: JACQUIE KEEN MD Documentation of Exam: Documentation of any treatments & extenuating circumstances including Concerns Regarding Discharge (functional status, medication knowledge or non-compliance, living conditions, etc.) that warrant an admission rather than observation: [IV antibiotics, IV fluids, serial labs, serial imaging, pulmonology consult, monitoring of vital signs,] (ZINA SEGURA PA-C) PA/MANAGER FLIGHT Co-Sign Statement Statement: ED Attending supervision documentation- x I saw and evaluated the patient. I have also reviewed all the pertinent lab results and diagnostic results. I agree with the findings and the plan of care as documented in the PA's/MANAGER FLIGHT's documentation. [] I have reviewed the ED Record and agree with the PA's/MANAGER FLIGHT's documentation. [] Additions or exceptions (if any) to the PAs/MANAGER FLIGHT's note and plan are summarized below: [] (AIMEE BAILEY,CONSTANTINO) Critical Care Note Critical Care Note Critical Care Time: non-applicable (ZINA SEGURA PA-C)
--- NOTE | 2016-10-29 11:58 | NUR ---
ELMA SEGURA AT BEDSIDE
--- NOTE | 2016-10-29 12:40 | NUR ---
BLOOD SENT TO LAB. LAV, BL, LAV, YELLOW. URINE TRIO
--- NOTE | 2016-10-29 12:49 | NUR ---
PT IN ULTRASOUND
[2016-10-29 13:09] LABS: ABSOLUTE BASOPHIL COUNT 0 /CUMM (0.0-0.2); ABSOLUTE EOSINOPHIL COUNT 0 /CUMM (0.0-0.7); ABSOLUTE GRANULOCYTE CT 14.5 /CUMM (1.4-6.5); ABSOLUTE LYMPH COUNT 1.8 /CUMM (1.2-3.4); ABSOLUTE MONOCYTE COUNT 0.7 /CUMM (0.10-0.60); BASOPHIL % 0.2 % (0.0-2.0); EOSINOPHIL % 0.3 % (0-5); HEMATOCRIT 32.8 % (37-47); MEAN CORPUSCULAR HGB 30.9 PG (27.0-31.0); MEAN CORPUSCULAR HGB CONC 32.5 G/DL (33.0-37.0); MEAN CORPUSCULAR VOLUME 95.3 FL (81.0-99.0); PLATELET COUNT 543 /CUMM (130-400); RBC DISTRIBUTION WIDTH 17.4 % (11.5-14.5); RED BLOOD CELL CT 3.44 /CUMM (4.20-5.40); WHITE BLOOD CELL COUNT 17.1 /CUMM (4.8-10.8)
--- NOTE | 2016-10-29 13:19 | NUR ---
PT RETURNED FROM ULTRASOUND. EKG DONE, ELMA SEGURA MADE AWARE
[2016-10-29] MEDS ORDERED: PANTOPRAZOLE SO40 M1 PO (13:22)
[2016-10-29] MEDS ORDERED: COLACE100 M1 PO (13:23)
[2016-10-29] MEDS ORDERED: MIRALAX17 G1 PO (13:23)
[2016-10-29] MEDS ORDERED: NEURONTIN300 M1 PO (13:24)
[2016-10-29] MEDS ORDERED: TUDORZA PRESS400 MCG PO (13:25)
--- NOTE | 2016-10-29 13:25 | ULTRASOUND REPORT ---
EXAMINATION EXAMINATION: DOPPLER VENOUS ULTRASOUND EXTREMITY, LEFT CLINICAL INFORMATION: Left lower extremity edema. COMPARISON: None. TECHNIQUE: Grayscale, Doppler and spectral analysis of the lower extremity was performed. FINDINGS: There is no evidence for a deep venous thrombosis within the visualized lower extremity veins. There is normal flow, compression and augmentation. ADDITIONAL FINDINGS: No Bhardwaj's cyst is identified. IMPRESSION: Unremarkable examination. Specifically, no evidence for DVT.
[2016-10-29] MEDS ORDERED: ZOLOFT100 M1 PO (13:26)
[2016-10-29] MEDS ORDERED: MELATONIN3 M4 PO (13:27)
[2016-10-29] MEDS ORDERED: PERCOCET 5-3251 EACH PO (13:27)
--- NOTE | 2016-10-29 13:27 | NUR ---
CRITICAL TEST RESULTS [id number] YNES TODD 61 F TESTS AND RESULTS: LACTIC ACID 3.2 Results received and read back by: ERIC HOWARD Results received date and time: 10/29/16 1327 The following provider was notified of the results, and read the results back: ELMA SEGURA Notified date and time: 10/29/16 at 1324
[2016-10-29] MEDS ORDERED: FUROSEMIDE20 M1 PO (13:29)
--- NOTE | 2016-10-29 13:30 | NUR ---
ELMA SEGURA AT BEDSIDE
--- NOTE | 2016-10-29 13:34 | RADIOLOGY REPORT ---
EXAMINATION: XR PORTABLE CHEST CLINICAL INFORMATION: Shortness of breath. Hypoxia. Fever. Suspected pneumonia, CHF. COMPARISON: Chest done on 09/28/2016. TECHNIQUE: Portable frontal view of the chest was obtained. FINDINGS: The size of both pleural effusions has significantly decreased since 09/28/2016. Nonspecific bibasilar airspace disease has also significantly improved since prior study. The remainder of the lung rosenbaum remain clear. The cardiomediastinal silhouette is within normal limits. Previously identified right-sided central line is no longer present. No new abnormalities. IMPRESSION: Significant interval decrease in size of previously identified bilateral pleural effusions and significant interval improvement of bibasilar airspace disease. Nonvisualized right-sided central line. No other significant change since 09/28/2016.
--- NOTE | 2016-10-29 14:06 | NUR ---
PT OFF TO CAT SCAN
--- NOTE | 2016-10-29 14:08 | Cons- Pulmonary ---
General Information and HPI Consulting Request Date of Consult: 10/29/16 Requested By: Dr. Ordaz Reason for Consult: hypoxemia, fever, sepsis Source of Information: patient Exam Limitations: no limitations History of Present Illness: 61 year old woman. Previously admitted with a 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 Had c.diff and improved hypoxemic respiratory failure. Presents with fever, dyspnea, wbc 17.1, fever 102.5. 86% o2 sat. CXR with significant interval decrease in size of previously identified bilateral pleural effusions and significant interval improvement of bibasilar airspace disease. Nonvisualized right-sided central line. No other significant change since 2016. She also c/o leg pain worse on left and edema. This has been ongoing for a few weeks. Some clear phlegm with a cough. She just was recommended to increase her lasix. Denies cp, syncope, hemoptysis, nausea, vomiting, abd pain. No recent travel or sick contacts. Pain was a 6/10. No trauma. LE doppler is unremarkable without evidence for DVT. Allergies/Medications Allergies: Coded Allergies: azithromycin (Intermediate, NAUSEA AND VOMITING 08/26/16) Home Med List: Aclidinium [place] (Tudorza Pressair) 400 MCG/ACTUATION AER.POW.BA 1 PUFF PO BID BREATHING PROBLEMS (Reported) Albuterol Sulfate (Ventolin Hfa) 90 MCG HFA.AER.AD 2 PUF INH Q8P PRN COPD ( Reported) Albuterol Sulfate 2.5 MG/3 ML (0.083 %) VIAL.NEB 3 ML INH Q8P PRN SHORTNESS OF BREATH . Baclofen 10 MG TABLET 1 TAB PO UNKNOWN (Reported) Budesonide/Formoterol Fumarate (Symbicort 160-4.5 Mcg Inhaler) 160 MCG-4.5 MCG/ ACTUATION HFA.AER.AD 2 PUF INH BID BREATHING PROBLEMS (Reported) Clonazepam 0.5 MG TABLET 1 TAB PO BID ANXIETY (Reported) Docusate Sodium (Colace) 100 MG CAPSULE 1 CAP PO BID CONSTIPATION (Reported) Furosemide 20 MG TABLET 1 TAB PO DAILY WATER RETENTION (Reported) Gabapentin (Neurontin) 300 MG CAPSULE 1 CAP PO TID ANXIETY (Reported) Magnesium Oxide 400 MG TABLET 400 MG PO DAILY supplement . Melatonin 3 MG TABLET 3 TAB PO QPM SLEEP (Reported) Oxycodone HCl/Acetaminophen (Percocet 5-325 MG Tablet) 5 MG-325 MG TABLET 1 TAB PO Q4 HRS NEEDED PRN PAIN (Reported) Pantoprazole Sodium 40 MG TABLET.DR 1 TAB PO DAILY ACID REFLUX (Reported) Polyethylene Glycol 3350 (Miralax) 17 GRAM POWD.PACK 1 PAC PO DAILY PRN CONSTIPATION (Reported) dissolve in water Sertraline HCl (Zoloft) 100 MG TABLET 2 TAB PO DAILY DEPRESSION (Reported) Trazodone HCl 100 MG TABLET 2 TAB PO QPM SLEEP (Reported) Current Medications: Current Medications Sig/Ry Start time Last Medication Dose Route Stop Time Status Admin Acetaminophen 650 MG ONCE ONE 10/29 1130 DC 10/29 PO 10/29 1131 1129 Azithromycin 500 MG ONCE ONE 10/29 1345 UNVr Sodium Chloride 250 ML IV 10/29 1444 Ceftazidime 1,000 MG ONCE ONE 10/29 1400 AC IV 10/29 1401 Ceftriaxone Sodium 1,000 MG ONCE ONE 10/29 1345 CAN IV 10/29 1346 Ketorolac 15 MG ONCE ONE 10/29 1345 DC Tromethamine IV 10/29 1346 Sodium Chloride 1,000 ML BOLUS ONE 10/29 1215 DC 10/29 IV 10/29 1314 1230 Review of Systems Comments 18 pt ros reviewed. Pertinent positives and negatives are in the chart. Past History Travel History Traveled to [place] past 21 day No Medical History Neurological: NONE EENT: NONE Cardiovascular: NONE Respiratory: COPD Gastrointestinal: gastritis, HP-neg C Difficile 2016 diverticulosis coli Colonic SSP/adenoma/TA COLOSTOMY Hepatic: NONE Renal: SIERRA (? 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 sister, Maude Last ([phone]) Services at Home: None Primary Language: Yi ETOH Use: denies use Illicit Drug Use: denies illicit drug use Living Will? no Power of President & Ceo/HCP? no Functional Ability ADLs Unknown: dressing, eating, toileting, bathing. Ambulation: unknown IADLs Unknown: shopping, housework, finances, food prep, telephone, transportation, medication admin. Exam & Diagnostic Data Last 24 Hrs of Vital Signs/I&O Vital Signs Date Time Temp Pulse Resp B/P B/P Pulse O2 O2 Flow FiO2 Mean Ox Delivery Rate 10/29 1349 101.6 10/29 1251 86 Nasal 3.0L Cannula 10/29 1249 102.5 10/29 1129 102.5 10/29 1126 102.5 112 20 113/71 Intake & Output 10/29 1600 10/29 0800 10/29 0000 Intake Total Output Total Balance Patient 126 lb Weight Weight Reported by Patient Measurement Method Physical Exam Other Physical Findings: gen awake and alert heent ncat cvs s1, s2 lungs rare rhonchi abd colostomy ext without edema Last 48 Hrs of Labs/[place]: Laboratory Tests 10/29/16 1220: Anion Gap 14, Estimated GFR > 60, BUN/Creatinine Ratio 26.3 H, Glucose 81, Lactic Acid 3.2 H, Calcium 9.4, Total Bilirubin 0.3, AST 26, ALT 30, Alkaline Phosphatase 80, Troponin I < 0.01, C-Reactive Prot, Quant 1.2 H, Pro-B- Natriuretic Pept 491 H, Total Protein 7.0, Albumin 3.6, Globulin 3.4, Albumin/ Globulin Ratio 1.1, D-Dimer High Sensitivty 753 H, CBC w Diff MAN DIFF ORDERED, RBC 3.44 L, MCV 95.3, MCH 30.9, RDW 17.4 H, MPV 7.0 L, Gran % 85.0 H, Lymphocytes % 10.7 L, Monocytes % 3.8, Eosinophils % 0.3, Basophils % 0.2, Absolute Granulocytes 14.5 H, Segmented Neutrophils 77 H, Band Neutrophils 5, Absolute Lymphocytes 1.8, Lymphocytes 10 L, Monocytes 7, Absolute Monocytes 0.7 H, Absolute Eosinophils 0, Basophils 1, Absolute Basophils 0, Platelet Estimate VERIFIED BY SMEAR, Anisocytosis 1+, PUBS MCHC 32.5 L, Urine Color YEL, Urine Clarity CLEAR, Urine pH 6.0, Ur Specific [place] 1.010, Urine Protein NEG, Urine Ketones NEG, Urine Nitrite NEG, Urine Bilirubin NEG, Urine Urobilinogen 0.2, Ur Leukocyte Esterase MOD H, Ur Microscopic SEDIMENT EXAMINED, Urine RBC 1-3, Urine WBC 15-25 H, Ur Epithelial Cells RARE, Urine Bacteria MOD H, Urine Mucus RARE, Micro UA Comment MORE INFO: H, Urine Hemoglobin NEG, Urine Glucose NEG Assessment/Plan Impression/Plan: Impression 61 year old woman * Hypoxemic respiratory failure * Sepsis with an unclear etiology - differential can include soft tissue, abdominal, urinary source. The cxr has improved from previously without clear evidence for pna * hx of c.diff, f/u CTA * 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 Plan -TRC/Nebs -supplement o2 with a goal spo2 >88% -empiric abx with broad coverage - hx of pseudomonas - would change ceftazadime to meropenem (pseudomonas was previously resistant to ceftazadime) and would add Vancomycin to cover gram positives such as MRSA given recent hospitalization -f/u imaging -good skin turgor, normotensive, lactate needs to be repeated for clearance DVT prophylaxis at all times Consult Acknowledgment - Thank you for your consult request.
--- NOTE | 2016-10-29 15:11 | CT SCAN REPORT ---
EXAMINATION: CT ANGIOGRAM CHEST WITHOUT AND WITH CONTRAST (CT PULMONARY ANGIOGRAM FOR PE) CLINICAL INFORMATION: Shortness of breath, hypoxia and fever. Crackles left lower lobe. COMPARISON: Chest x-ray from earlier the same day and CT of the chest, abdomen and pelvis 09/20/2016. TECHNIQUE: Prior to contrast administration, noncontrast localization images were obtained. Subsequently, multidetector volumetric imaging was performed from the thoracic inlet to below the diaphragms following the administration of 95 mL Optiray 320 intravenous contrast. No contrast reaction reported. Sagittal, coronal, and MIP oblique sagittal reformatted images were obtained on the CT workstation, uploaded to PACS, and reviewed. TOTAL EXAM DLP: 221 mGy-cm FINDINGS: QUALITY OF STUDY/CONTRAST BOLUS: Satisfactory PULMONARY ARTERIES: There is good opacification of the pulmonary arteries. No pulmonary embolism is seen. THORACIC AORTA: No aneurysm or dissection. LUNG: There is left lower lobe airspace disease with air bronchograms most suggestive of pneumonia. There is atelectasis or small infiltrate in the right lower lobe, right middle lobe and inferior segment of the lingula. There is a small 2 x 5 mm peripheral or subpleural right lower lobe nodule adjacent to the major fissure, axial image 269 series 2. PLEURA: There is a small right pleural effusion. There is a trace left pleural effusion. MEDIASTINUM: Normal heart size. No pericardial effusion. No hilar or mediastinal lymphadenopathy. No evidence of septal bowing or right heart strain. CHEST WALL/AXILLA: No axillary or internal mammary lymphadenopathy. OSSEOUS STRUCTURES: There are degenerative changes of the spine and curvature of the proximal lumbar spine to the left. UPPER ABDOMEN: There is abnormal low-attenuation soft tissue and fluid seen under the right hemidiaphragm adjacent to the right lobe of the liver. The previously identified drainage catheter has been removed. There are stable low-attenuation liver lesions suggestive of cysts that are stable. The liver may be enlarged. There is question of new decreased attenuation seen in the periportal region and upper retroperitoneum, for example axial images 59-62. This could be better evaluated with dedicated abdominal CT scan if clinically indicated. Images through the upper abdomen are otherwise unremarkable. No reflux of contrast into the hepatic veins to suggest elevated right heart pressures. IMPRESSION: Left lower lobe pneumonia. Small infiltrate or atelectasis in the right lower lobe, inferior segment of the lingula and right middle lobe. Persistent fluid and abnormal soft tissue seen under the right hemidiaphragm adjacent to the right lobe of the liver. Question new increasing low attenuation in the periportal region and upper abdominal retroperitoneum. This could be better evaluated with CT of the abdomen if clinically indicated. VTE: Negative
--- NOTE | 2016-10-29 15:24 | NUR ---
2ND SET OF CULTURE SENT TO LAB.
--- NOTE | 2016-10-29 15:59 | NUR ---
PT GOING TO RM 218-1.
--- NOTE | 2016-10-29 16:28 | NUR ---
PT TO BE TRANSFER TO 2NB BED1. REPORT GIVEN TO ACCEPTING RN ON 2NB
--- NOTE | 2016-10-29 16:35 | History & Physical ---
TIMMY BAILEY,COLT 10/29/16 3141: General Information and HPI MD Statement: I have seen and personally examined PEREZYNES Bland and documented this H&P. The patient is a 61 year old F who presented with a patient stated chief complaint of [weakness]. Source of Information: patient Exam Limitations: no limitations History of Present Illness: This is a 61 yo female with PMH of gastritis, C.diff, colonic perforation with pericolic abscess s/p drainage with sigmoid colectomy and end colostomy, DJD, depression and anxiety who comes for CC rigors and fever. Pt states that her all her symtpoms started this morning. She felt fatigue, chills, fever and more short of breath with a cough and some clear sputum. She called her VNA who suggested she come to ED. She states that she was in her usual health until yesterday. She visited her pcp for routine visit in the afternoon and had no complaints other than worsening bilat LE pain (L>>R with max 6/10 pain)and some increased swelling. She was told to double her usual Lasix dose. She denies any CP, N/V/Diarrhea, headache, or neck stiffness. Endorses fever with Tmax of 102. Pt has colostomy denies any increased output. No urinary symptoms including frequency or urgency. Does endorse some mild cough. Social hx significant for prev hx of smoking, has a bird and dog at home. No recent tick bites. No recent travel or sick contacts. Only event out of ordinary yesterday was that she got a pedicure and got her toenails cut. She was DC from on Oct 03 after prolonged stay in ICU for perforated sigmoid colon, subsequent abscess. At that time she had been intubated, successfully extubated, and d/c on 2l NC. She has hx of pseudomonas in urine and in sputum. Urine was resisant to imipenem and sputum at different dates has variable susceptibility to Ceftaz. Allergies/Medications Allergies: Coded Allergies: azithromycin (Intermediate, NAUSEA AND VOMITING 08/26/16) Home Med list Aclidinium [place] (Tudorza Pressair) 400 MCG/ACTUATION AER.POW.BA 1 PUFF PO BID BREATHING PROBLEMS (Reported) Albuterol Sulfate (Ventolin Hfa) 90 MCG HFA.AER.AD 2 PUF INH Q8P PRN COPD ( Reported) Albuterol Sulfate 2.5 MG/3 ML (0.083 %) VIAL.NEB 3 ML INH Q8P PRN SHORTNESS OF BREATH . Baclofen 10 MG TABLET 1 TAB PO UNKNOWN (Reported) Budesonide/Formoterol Fumarate (Symbicort 160-4.5 Mcg Inhaler) 160 MCG-4.5 MCG/ ACTUATION HFA.AER.AD 2 PUF INH BID BREATHING PROBLEMS (Reported) Clonazepam 0.5 MG TABLET 1 TAB PO BID ANXIETY (Reported) Docusate Sodium (Colace) 100 MG CAPSULE 1 CAP PO BID CONSTIPATION (Reported) Furosemide 20 MG TABLET 1 TAB PO DAILY WATER RETENTION (Reported) Gabapentin (Neurontin) 300 MG CAPSULE 1 CAP PO TID ANXIETY (Reported) Magnesium Oxide 400 MG TABLET 400 MG PO DAILY supplement . Melatonin 3 MG TABLET 3 TAB PO QPM SLEEP (Reported) Oxycodone HCl/Acetaminophen (Percocet 5-325 MG Tablet) 5 MG-325 MG TABLET 1 TAB PO Q4 HRS NEEDED PRN PAIN (Reported) Pantoprazole Sodium 40 MG TABLET.DR 1 TAB PO DAILY ACID REFLUX (Reported) Polyethylene Glycol 3350 (Miralax) 17 GRAM POWD.PACK 1 PAC PO DAILY PRN CONSTIPATION (Reported) dissolve in water Sertraline HCl (Zoloft) 100 MG TABLET 2 TAB PO DAILY DEPRESSION (Reported) Trazodone HCl 100 MG TABLET 2 TAB PO QPM SLEEP (Reported) Compliance With Home Meds: GOOD Past History Travel History Traveled to [place] past 21 day No Medical History Neurological: NONE EENT: NONE Cardiovascular: NONE Respiratory: COPD Gastrointestinal: gastritis, HP-neg C Difficile 2016 diverticulosis coli Colonic SSP/adenoma/TA COLOSTOMY Hepatic: NONE Renal: SIERRA (? 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 sister, Maude Last ([phone]) Services at Home: None Primary Language: French ETOH Use: denies use Illicit Drug Use: denies illicit drug use Living Will? no Power of Regulatory Affairs Analyst/HCP? no Functional Ability ADLs Unknown: dressing, eating, toileting, bathing. Ambulation: unknown IADLs Unknown: shopping, housework, finances, food prep, telephone, transportation, medication admin. Review of Systems Review of Systems Constitutional: Reports: see HPI, chills, fever, malaise, weakness. Exam & Diagnostic Data Last 24 Hrs of Vital Signs/I&O Vital Signs Date Time Temp Pulse Resp B/P B/P Pulse O2 O2 Flow FiO2 Mean Ox Delivery Rate 10/296 Nasal 5.0L Cannula 10/29 2049 90 Nasal 5.0L Cannula 10/29 1954 98.6 76 18 94/52 92 Nasal 3.0L Cannula 10/29 1858 75 18 94/52 92 Nasal 3.0L Cannula 10/29 1800 98.2 86 18 10/29 1739 86 86/42 10/29 1610 100.2 83 18 82/50 92 Nasal 3.0L Cannula 10/29 1521 100.2 90 90/56 10/29 1349 101.6 10/29 1251 86 Nasal 3.0L Cannula 10/29 1249 102.5 10/29 1129 102.5 10/29 1126 102.5 112 20 113/71 Intake & Output 10/29 1600 10/29 0800 10/29 0000 Intake Total Output Total Balance Patient 57.153 kg Weight Weight Reported by Patient Measurement Method Physical Exam General Appearance Alert, Oriented X3, Cooperative, No Acute Distress Skin No Significant Lesion Skin Temp/Moisture Exam: Warm/Dry Sepsis Skin Exam (color): Normal for Ethnicity HEENT Atraumatic, PERRLA, EOMI, Mucous Membr. moist/pink Neck Supple, l. sided lymphadenopathy (one node around l.carotid) Lymphatic no axillary lymphadenopathy Cardiovascular Regular Rate, Normal S1, Normal S2, No Murmurs Lungs Normal Air Movement, CRACKLES AT BASE Abdomen Soft, No Tenderness, has colostomy with belt around waist. opaque bag but very small volume around 20cc in bag Neurological Normal Speech, Normal Tone, Sensation Intact, Cranial Nerves 3-12 NL Extremities BIlat LE with 2+ edema. Sepsis Peripheral Pulse Location: Radial Sepsis Peripheral Pulse Exam: Normal Sepsis Cap Refill Exam: <2 Sec Last 24 Hrs of Labs/[place]: Laboratory Tests 10/29/16 1634: Lactic Acid Cancelled 10/29/16 1618: Lactic Acid 1.4 10/29/16 1220: Anion Gap 14, Estimated GFR > 60, BUN/Creatinine Ratio 26.3 H, Glucose 81, Lactic Acid 3.2 H, Calcium 9.4, Total Bilirubin 0.3, AST 26, ALT 30, Alkaline Phosphatase 80, Troponin I < 0.01, C-Reactive Prot, Quant 1.2 H, Pro-B- Natriuretic Pept 491 H, Total Protein 7.0, Albumin 3.6, Globulin 3.4, Albumin/ Globulin Ratio 1.1, D-Dimer High Sensitivty 753 H, CBC w Diff MAN DIFF ORDERED, RBC 3.44 L, MCV 95.3, MCH 30.9, RDW 17.4 H, MPV 7.0 L, Gran % 85.0 H, Lymphocytes % 10.7 L, Monocytes % 3.8, Eosinophils % 0.3, Basophils % 0.2, Absolute Granulocytes 14.5 H, Segmented Neutrophils 77 H, Band Neutrophils 5, Absolute Lymphocytes 1.8, Lymphocytes 10 L, Monocytes 7, Absolute Monocytes 0.7 H, Absolute Eosinophils 0, Basophils 1, Absolute Basophils 0, Platelet Estimate VERIFIED BY SMEAR, Anisocytosis 1+, PUBS MCHC 32.5 L, Urine Color YEL, Urine Clarity CLEAR, Urine pH 6.0, Ur Specific [place] 1.010, Urine Protein NEG, Urine Ketones NEG, Urine Nitrite NEG, Urine Bilirubin NEG, Urine Urobilinogen 0.2, Ur Leukocyte Esterase MOD H, Ur Microscopic SEDIMENT EXAMINED, Urine RBC 1-3, Urine WBC 15-25 H, Ur Epithelial Cells RARE, Urine Bacteria MOD H, Urine Mucus RARE, Micro UA Comment MORE INFO: H, Urine Hemoglobin NEG, Urine Glucose NEG Microbiology 10/29 1515 BLOOD: Blood Culture - RECD 10/29 1240 URINE ROUT: Urine Culture - RECD 10/29 1235 BLOOD: Blood Culture - RECD Assessment/Plan Assessment: This is a 61 yo female with PMH of recent prolonged ICU stay for sigmoid perforation and abscess with colostomy who comes in with CC of fever, chills, SOB, cough and weakness of one day duration. Given fever, elevated wbc, tachycardia and desaturation there is c/o sepsis 2/2 PNA. She has qSOFA of 1 placing her in not high risk category. As such we will admit to [facility] floor for further monitoring and treatment. ED WORK UP SHOWS: Vitals: 102.5, 112, 20, 113/71 Pulse ox initially 86 on room air cbc: 17.1, 10.7/32.8, 543 BEP: BUN 21 and Cr .8, Lacticc 3.2 Negative trops, LFTs, BNP 491, CRP 1. UA: 15-25 WBC rare epitheleal cells, mod bacteria, rare yeast w/ pseudohyphae D-dimer 753 CXR: decreased pleural effusion and airspace densities Doppler: negative for DVT CTA IMPRESSION: Left lower lobe pneumonia. Small infiltrate or atelectasis in the right lower lobe, inferior segment of the lingula and right middle lobe. Persistent fluid and abnormal soft tissue seen under the right hemidiaphragm adjacent to the right lobe of the liver. Question new increasing low attenuation in the periportal region and upper abdominal retroperitoneum. This could be better evaluated with CT of the abdomen if clinically indicated. PLAN: Sepsis 2/2 PNA: Likely infxn as she has signs of sepsis. BNP mildly elevated, unlikley to be CHF despite worsening LE edema. No PE on CTA. Pt is hypoxic on RA to 86%. She does not qualify for septic shock despite + lactic acid as she had no pressor requirement when I saw her. Additionally, severe sepsis is no longer a recognized a category according to EDUARDO 2016. CT shows LLL PNA and pt endorses new cough, fever, rigors and sputum production. Was desatting to 86 on initial presentation. Pt got ceftaz and 1x vanco in ED. Has previously grown pseudomonas intermittently resistant to Ceftaz. Previous sputum grew yeast, mold and pseudomonas. Will treat empirically for resistant pseudomonas and will tailor per sputum culture. Other possible infectious sources include urine as there is evidence of pyuria and bacteria. She denies any symptoms. There is possibility of cellulitis as she has worsening pain in bilat LE and she had pedicure yesterday, but no evidence of skin break or clinical evidence of skin infection such as erythema, warmth etc in bilat LE. An intra-abdominal source is possible given recent instrumentation and perforation etc, but abd exam is benign. Note "Question new increasing low attenuation in the periportal region and upper abdominal retroperitoneum" on CT. Has hx c.diff but no diarrhea currently. * Fluid resusictate with NS x 1 bolus and re-assess. Note pt got 40mg of Lasix at home. Will hold it at this time as BP is soft. Will remain mindful of LE edema but will fluid resuscitate as required. * IV Meropenem. Will hold off on treating mold/yeast etc from previous sputum cx at this time. * Trend/Monitor lactic acid * TRC * O2 for sats > 92 * blood cx * urine cx * sputum cx * monitor for other sources of infection * Appreciate pulm recommendations Continue other home meds. Hold lasix and bp meds. As Ranked By This Provider Problem List: 1. Sepsis Core Measures/Miscellaneous Acute Coronary Syndrome ACS Diagnosis: No Cerebrovascular Accident CVA/TIA Diagnosis: No Congestive Heart Failure CHF Diagnosis: No VTE (View Protocol) VTE Risk Factors: [facility] medical illness [facility] prophylaxis d/t: No contraindications No VTE Pharm Prophylaxis d/t: No contraindications VTE Diagnosis: No VTE Type: NONE VTE Confirmed by (Test): NONE Sepsis (View Protocol) Severe Sepsis Present: Yes BC x2: Yes Lactic Acid x2: Yes IV ABX Broad Spectrum: Yes NS/LR Started: Yes Septic Shock Septic Shock Present: No BC x2: Yes Lactic Acid: Yes IV ABX Broad Spectrum: Yes Focused Exam Completed: Yes NS/LR 30ml/kg w/in 3hrs: Yes IV Vasopressors started: No Miscellaneous Documentation Attending Case Discussed With: JACQUIE KEEN MD Primary Care Physician: ROVERTO MONTENEGRO MD Patient sees these Specialists UNKNOWN Level of Patient Care: General Medicine JACQUIE KEEN MD 10/29/162: Attending MD Review Statement Attending Statement Attending MD Statement: examined this patient, discuss w/resident/PA/COKEMAN, agreed w/resident/PA/COKEMAN, reviewed EMR data (avail) Attending Assessment/Plan: 61F extensive PMH COPD, severe C.diff in the past, in September 2015 had severe colitis with perforation and abscess formation s/p Ho procedure with ostomy placement, recently discharged from [place], admitted for fever 102.5, oxygen saturation 86% on room air, cough with thick white sputum, CTA negative for PE but shows LLL pneumonia. Patient feels well otherwise. Has a history of sputum cultures with Pseudomonas resistant to Ceftazidime, and recent hospital stay is high risk for HCAP. Also complains of left leg pain, doppler negative. Started Meropenem, cultures, pulmonary consult, monitor for signs of recurrent C.diff, continue home medications.
--- NOTE | 2016-10-29 16:41 | NUR ---
PT BP 82/50 1L 0.9%NS INFUSING ORDERED.
--- NOTE | 2016-10-29 17:47 | NUR ---
CURRENT BP 86/42 PA BLACK MADE AWARE 0.9%NS IV BOLUS INFUSING ORDERED
--- NOTE | 2016-10-29 18:13 | Admission Certification ---
Admission Certification Certification Statement - As attending physician, I certify that at the time of - admission, based on clinical presentation, severity of - symptoms, need for further diagnostic testing and - therapeutic interventions, and risk of adverse outcomes - without in-hospital treatment, in my clinical assessment, - this patient requires an acute hospital stay for a minimum - of two nights or longer. I have also considered psychsocial - factors such as support system, advanced age, financial - issues, cognitive issues, and failed out-patient treatments, - past re-admission history, safety of patient, and lack of - compliance as applicable. Specific rationale supporting this admission is: Sepsis secondary to pneumonia
--- NOTE | 2016-10-29 20:01 | NUR ---
PER SALESPERSON BURIAL NEEDS RN PT CAN BE TRANSFERED TO 2NB WITH CURRENT BP 94/52 HOUSE STAFF PAGED. RECEIVING RN MADE AWARE.
[2016-10-29 23:02] VITALS: BP 92/46
--- NOTE | 2016-10-30 00:23 | NUR ---
PT ARRIVED TO FLOOR AT 2030. PT SATING 87% ON 4L, PT PLACED ON 5L SATING 91%. PT DENIES ANY SOB. BP 92/52. PT ASYMPTOMATIC, DENIES ANY DIZZINESS/FATIGUE. 1+ PITTING EDEMA ON BILAT LOWER EXT. ALPS ON. COLOSTMY TO L ABDOMEN. +BS. 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 PT RESTING COMFORTABLY IN BED. CALL TIM WITHIN REACH
[2016-10-30 07:21] VITALS: BP 92/50
[2016-10-30 08:13] LABS: ABSOLUTE BASOPHIL COUNT 0 /CUMM (0.0-0.2); ABSOLUTE EOSINOPHIL COUNT 0.1 /CUMM (0.0-0.7); ABSOLUTE LYMPH COUNT 1.3 /CUMM (1.2-3.4); BASOPHIL % 0.2 % (0.0-2.0); EOSINOPHIL % 0.9 % (0-5); GRANULOCYTE % 80.4 % (42.2-75.2); HEMATOCRIT 30.6 % (37-47); MEAN CORPUSCULAR HGB 31.4 PG (27.0-31.0); MEAN CORPUSCULAR HGB CONC 33.1 G/DL (33.0-37.0); MEAN CORPUSCULAR VOLUME 94.9 FL (81.0-99.0); MEAN PLATELET VOLUME 6.9 FL (7.4-10.4); PLATELET COUNT 442 /CUMM (130-400); RBC DISTRIBUTION WIDTH 17.4 % (11.5-14.5); RED BLOOD CELL CT 3.22 /CUMM (4.20-5.40); WHITE BLOOD CELL COUNT 12.4 /CUMM (4.8-10.8)
--- NOTE | 2016-10-30 08:22 | PN- Housestaff ---
See Addendum Subjective Follow-up For: pna Subjective: Pt states she feels more congested than before. No acute overngiht events, afebrile. She is on NC and sitting in chair at bedside. Review of Systems Constitutional: Denies: chills, malaise. EENTM: Denies: blurred vision. Cardiovascular: Denies: chest pain, palpitations. Respiratory: Reports: cough, short of breath, sputum production. Gastrointestinal: Denies: abdominal pain, nausea, vomiting. Genitourinary: Denies: discharge, frequency, pain. Musculoskeletal: Reports: no symptoms. Objective Last 24 Hrs of Vital Signs/I&O Vital Signs Date Time Temp Pulse Resp B/P B/P Pulse O2 O2 Flow FiO2 Mean Ox Delivery Rate 10/30 0721 98.1 77 20 92/50 91 10/30 0000 90 Nasal 5.0L Cannula 10/29 2302 99.2 75 18 92/46 90 Nasal 5.0L Cannula 10/29 2146 Nasal 5.0L Cannula 10/29 2049 90 Nasal 5.0L Cannula 10/29 1954 98.6 76 18 94/52 92 Nasal 3.0L Cannula 10/29 1858 75 18 94/52 92 Nasal 3.0L Cannula 10/29 1800 98.2 86 18 10/29 1739 86 86/42 10/29 1610 100.2 83 18 82/50 92 Nasal 3.0L Cannula 10/29 1521 100.2 90 90/56 10/29 1349 101.6 10/29 1251 86 Nasal 3.0L Cannula 10/29 1249 102.5 10/29 1129 102.5 10/29 1126 102.5 112 20 113/71 Intake & Output 10/30 1600 10/30 0800 10/30 0000 Intake Total 3370 Output Total Balance 3370 Intake, IV 3250 Intake, Oral 120 Patient 56.699 kg Weight Physical Exam General Appearance: Alert, Oriented X3, Cooperative, No Acute Distress HEENT: Atraumatic, PERRLA Neck: Supple Cardiovascular: Regular Rate, Normal S1, Normal S2 Lungs: crackles at bases Abdomen: Soft, No Tenderness Extremities: No Clubbing, No Cyanosis Current Medications: Current Medications Sig/Ry Start time Last Medication Dose Route Stop Time Status Admin Acetaminophen 1,000 MG Q6P PRN 10/29 1630 AC IV Albuterol Sulfate 3 ML BID 10/29 2200 AC 10/30 INH 1112 Albuterol Sulfate 3 ML Q8P PRN 10/29 1630 AC INH Albuterol Sulfate 2 PUF Q8P PRN 10/29 1630 AC INH Azithromycin 500 MG ONCE ONE 10/29 1345 CAN Sodium Chloride 250 ML IV 10/29 1444 Budesonide/ 2 PUF BID 10/29 2200 AC 10/30 Formoterol Fumarate INH 0917 Ceftazidime 0 .STK-MED ONE 10/29 1411 DC .ROUTE Ceftazidime 1,000 MG ONCE ONE 10/29 1400 DC 10/29 IV 10/29 1401 1525 Ceftriaxone Sodium 1,000 MG ONCE ONE 10/29 1345 CAN IV 10/29 1346 Clonazepam 0.5 MG BID PRN 10/29 1645 10/30 PO 11/05 2159 0933 Docusate Sodium 100 MG BID PRN 10/29 1645 AC PO Enoxaparin Sodium 40 MG DAILY 10/30 1000 10/30 SC 0916 Enoxaparin Sodium 0 .STK-MED ONE 10/29 1659 DC SC Enoxaparin Sodium 30 MG DAILY 10/29 1619 DC 10/29 SC 1710 Gabapentin 0 .STK-MED ONE 10/29 1701 DC PO Gabapentin 300 MG TID 10/29 1626 10/30 PO 0915 Ibuprofen 600 MG Q6P PRN 10/29 1630 10/30 PO 0943 Ketorolac 0 .STK-MED ONE 10/29 1410 DC Tromethamine .ROUTE Ketorolac 15 MG ONCE ONE 10/29 1345 DC 10/29 Tromethamine IV 10/29 1346 1447 Magnesium Oxide 400 MG DAILY 10/30 1000 AC 10/30 PO 0915 Melatonin 9 MG QPM PRN 10/29 1645 AC 10/29 PO 2245 Meropenem 1 GM IQ8 10/30 0000 DC IV Meropenem 1 GM IQ8 10/29 1730 AC 10/30 IV 0916 Morphine Sulfate 2 MG Q4P PRN 10/29 1630 AC IV Omeprazole 40 MG DAILY AC PRN 10/29 1630 AC PO Polyethylene Glycol 17 GM DAILY PRN 10/29 1645 AC PO Sertraline HCl 200 MG DAILY 10/29 1628 AC 10/30 PO 0915 Sodium Chloride 1,000 ML Q13H 10/29 2330 DC 10/30 IV 0015 Sodium Chloride 1,000 ML BOLUS ONE 10/29 1745 DC 10/29 IV 10/29 1844 1746 Sodium Chloride 1,000 ML BOLUS ONE 10/29 1645 DC 10/29 IV 10/29 1744 1640 Trazodone HCl 200 MG QPM 10/29 2200 AC 10/29 PO 2245 Vancomycin HCl 1,000 MG DAILY@1300 10/30 1300 AC Sodium Chloride 250 ML IV Vancomycin HCl 1,000 MG ONCE ONE 10/29 1415 DC 10/29 Sodium Chloride 250 ML IV 10/29 1514 1526 Last 24 Hrs of Lab/[place] Results Last 24 Hrs of Labs/Mics: Laboratory Tests 10/30/16 0730: Anion Gap 7, Estimated GFR > 60, BUN/Creatinine Ratio 26.7 H, Lactic Acid 0.7, CBC w Diff NO MAN DIFF REQ, RBC 3.22 L, MCV 94.9, MCH 31.4 H, RDW 17.4 H, MPV 6.9 L, Gran % 80.4 H, Lymphocytes % 10.5 L, Monocytes % 8.0, Eosinophils % 0.9, Basophils % 0.2, Absolute Granulocytes 10.0 H, Absolute Lymphocytes 1.3, Absolute Monocytes 1.0 H, Absolute Eosinophils 0.1, Absolute Basophils 0, PUBS MCHC 33.1 10/29/16 1634: Lactic Acid Cancelled 10/29/16 1618: Lactic Acid 1.4 Microbiology 10/30 1224 UPPER RESP: Surveillance Culture - ORD 10/30 929 LOWER RESP: Respiratory Culture - RES 10/30 929 LOWER RESP: Gram Stain - RES 10/30 2319 LOWER RESP: Respiratory Culture - CAN Cancelled: Cancelled via OE: WRONG DAY 10/30 2319 LOWER RESP: Gram Stain - CAN Cancelled: Cancelled via OE: WRONG DAY 10/29 1515 BLOOD: Blood Culture - RES Assessment/Plan Assessment: This is a 61 yo female with PMH of recent prolonged ICU stay for sigmoid perforation and abscess with colostomy, left on 2L NC who comes in with CC of fever, chills, SOB, cough and weakness of one day duration. Given fever, elevated wbc, tachycardia and desaturation there is c/o sepsis 2/2 PNA. She has qSOFA of 1 placing her at 3% risk for a bad outcome . As such we will admit to floor for further monitoring and treatment. CXR: decreased pleural effusion and airspace densities Doppler: negative for DVT CTA IMPRESSION: Left lower lobe pneumonia. Small infiltrate or atelectasis in the right lower lobe, inferior segment of the lingula and right middle lobe. Persistent fluid and abnormal soft tissue seen under the right hemidiaphragm adjacent to the right lobe of the liver. Question new increasing low attenuation in the periportal region and upper abdominal retroperitoneum. This could be better evaluated with CT of the abdomen if clinically indicated. PLAN: Sepsis 2/2 PNA: Today pt has remained afebrile. Continued on Meropenem She does not qualify for septic shock despite + lactic acid as she had no pressor requirement when I saw her. Additionally, severe sepsis is no longer a recognized a category according to EDUARDO 2016. CT shows LLL PNA and pt endorses new cough, fever, rigors and sputum production. Pt got ceftaz and 1x vanco in ED. Has previously grown pseudomonas intermittently resistant to Ceftaz. Will treat empirically for resistant pseudomonas and will tailor per sputum culture. Other possible infectious sources include urine as there is evidence of pyuria and bacteria. She denies any symptoms. There is possibility of cellulitis as she has worsening pain in bilat LE and she had pedicure, but no evidence of skin break or clinical evidence of skin infection such as erythema, warmth etc in bilat LE. An intra-abdominal source is possible given recent instrumentation and perforation etc, but abd exam is benign. Note "Question new increasing low attenuation in the periportal region and upper abdominal retroperitoneum" on CT. Has hx c.diff but no diarrhea currently. * will d/c IV fluids * Con't IV Meropenem (Day 2) Will hold off on treating mold/yeast etc from previous sputum cx at this time. * Received Vanco/ceftaz x 1. Per Pulm will restart vanco * Lactic acid trended down in second draw. * TRC * O2 for sats > 92 * blood cx; negative to date * urine cx; negative to date * sputum cx; negative to date * Appreciate pulm recommendations "Question new increasing low attenuation in the periportal region and upper abdominal retroperitoneum" on CT: Given prev hx of infectio and surgery will proceed with further eval * CAT scan abd without contrast Problem List: 1. Sepsis Pain Ratin Pain Location: none Pain Goal: Remain pain free Pain Plan: none Tomorrow's Labs & Rationales: cbc bep DVT/Prophylaxis: mechanical
--- NOTE | 2016-10-30 10:02 | PN- Pulmonary ---
Subjective HPI/Critical Care Issues: pt seen and examined leukocytosis improved afebrile 5LNC spo2 90% Objective Current Medications: Current Medications Sig/Ry Start time Last Medication Dose Route Stop Time Status Admin Acetaminophen 1,000 MG Q6P PRN 10/29 1630 AC IV Acetaminophen 650 MG ONCE ONE 10/29 1130 DC 10/29 PO 10/29 1131 1129 Albuterol Sulfate 3 ML BID 10/29 2200 AC 10/29 INH 2143 Albuterol Sulfate 3 ML Q8P PRN 10/29 1630 AC INH Albuterol Sulfate 2 PUF Q8P PRN 10/29 1630 AC INH Azithromycin 500 MG ONCE ONE 10/29 1345 CAN Sodium Chloride 250 ML IV 10/29 1444 Budesonide/ 2 PUF BID 10/29 2200 10/30 Formoterol Fumarate INH 0917 Ceftazidime 0 .STK-MED ONE 10/29 1411 DC .ROUTE Ceftazidime 1,000 MG ONCE ONE 10/29 1400 DC 10/29 IV 10/29 1401 1525 Ceftriaxone Sodium 1,000 MG ONCE ONE 10/29 1345 CAN IV 10/29 1346 Clonazepam 0.5 MG BID PRN 10/29 1645 AC 10/30 PO 11/05 2159 0933 Docusate Sodium 100 MG BID PRN 10/29 1645 AC PO Enoxaparin Sodium 40 MG DAILY 10/30 1000 AC 10/30 SC 0916 Enoxaparin Sodium 0 .STK-MED ONE 10/29 1659 DC SC Enoxaparin Sodium 30 MG DAILY 10/29 1619 DC 10/29 SC 1710 Gabapentin 0 .STK-MED ONE 10/29 1701 DC PO Gabapentin 300 MG TID 10/29 1626 AC 10/30 PO 0915 Ibuprofen 600 MG Q6P PRN 10/29 1630 AC 10/30 PO 0943 Ketorolac 0 .STK-MED ONE 10/29 1410 DC Tromethamine .ROUTE Ketorolac 15 MG ONCE ONE 10/29 1345 DC 10/29 Tromethamine IV 10/29 1346 1447 Magnesium Oxide 400 MG DAILY 10/30 1000 AC 10/30 PO 0915 Melatonin 9 MG QPM PRN 10/29 1645 AC 10/29 PO 2245 Meropenem 1 GM IQ8 10/30 0000 DC IV Meropenem 1 GM IQ8 10/29 1730 AC 10/30 IV 0916 Morphine Sulfate 2 MG Q4P PRN 10/29 1630 AC IV Omeprazole 40 MG DAILY AC PRN 10/29 1630 AC PO Polyethylene Glycol 17 GM DAILY PRN 10/29 1645 AC PO Sertraline HCl 200 MG DAILY 10/29 1628 AC 10/30 PO 0915 Sodium Chloride 1,000 ML Q13H 10/29 2330 AC 10/30 IV 0015 Sodium Chloride 1,000 ML BOLUS ONE 10/29 1745 DC 10/29 IV 10/29 1844 1746 Sodium Chloride 1,000 ML BOLUS ONE 10/29 1645 DC 10/29 IV 10/29 1744 1640 Sodium Chloride 1,000 ML BOLUS ONE 10/29 1215 DC 10/29 IV 10/29 1314 1230 Trazodone HCl 200 MG QPM 10/29 2200 AC 10/29 PO 2245 Vancomycin HCl 1,000 MG ONCE ONE 10/29 1415 DC 10/29 Sodium Chloride 250 ML IV 10/29 1514 1526 Vital Signs & I&O Last 24 Hrs of Vitals and I&O: Vital Signs Date Time Temp Pulse Resp B/P B/P Pulse O2 O2 Flow FiO2 Mean Ox Delivery Rate 10/30 07 98.1 77 20 92/50 91 10/30 0000 90 Nasal 5.0L Cannula 10/29 2302 99.2 75 18 92/46 90 Nasal 5.0L Cannula 10/29 2146 Nasal 5.0L Cannula 10/29 2049 90 Nasal 5.0L Cannula 10/29 1954 98.6 76 18 94/52 92 Nasal 3.0L Cannula 10/29 1858 75 18 94/52 92 Nasal 3.0L Cannula 10/29 1800 98.2 86 18 10/29 1739 86 86/42 10/29 1610 100.2 83 18 82/50 92 Nasal 3.0L Cannula 10/29 1521 100.2 90 90/56 10/29 1349 101.6 10/29 1251 86 Nasal 3.0L Cannula 10/29 1249 102.5 10/29 1129 102.5 10/29 1126 102.5 112 20 113/71 Intake & Output 10/30 1600 10/30 0800 10/30 0000 Intake Total 450 3370 Output Total Balance 450 3370 Intake, IV 450 3250 Intake, Oral 120 Patient 125 lb Weight Exam Other Physical Findings: gen awake and alert heent ncat cvs s1, s2 lungs rare rhonchi abd colostomy ext without edema Results Last 24 Hrs of Lab Results: Laboratory Tests 10/30/16 0730: Anion Gap 7, Estimated GFR > 60, BUN/Creatinine Ratio 26.7 H, Lactic Acid 0.7, CBC w Diff NO MAN DIFF REQ, RBC 3.22 L, MCV 94.9, MCH 31.4 H, RDW 17.4 H, MPV 6.9 L, Gran % 80.4 H, Lymphocytes % 10.5 L, Monocytes % 8.0, Eosinophils % 0.9, Basophils % 0.2, Absolute Granulocytes 10.0 H, Absolute Lymphocytes 1.3, Absolute Monocytes 1.0 H, Absolute Eosinophils 0.1, Absolute Basophils 0, PUBS MCHC 33.1 10/29/16 1634: Lactic Acid Cancelled 10/29/16 1618: Lactic Acid 1.4 10/29/16 1220: Anion Gap 14, Estimated GFR > 60, BUN/Creatinine Ratio 26.3 H, Glucose 81, Lactic Acid 3.2 H, Calcium 9.4, Total Bilirubin 0.3, AST 26, ALT 30, Alkaline Phosphatase 80, Troponin I < 0.01, C-Reactive Prot, Quant 1.2 H, Pro-B- Natriuretic Pept 491 H, Total Protein 7.0, Albumin 3.6, Globulin 3.4, Albumin/ Globulin Ratio 1.1, D-Dimer High Sensitivty 753 H, CBC w Diff MAN DIFF ORDERED, RBC 3.44 L, MCV 95.3, MCH 30.9, RDW 17.4 H, MPV 7.0 L, Gran % 85.0 H, Lymphocytes % 10.7 L, Monocytes % 3.8, Eosinophils % 0.3, Basophils % 0.2, Absolute Granulocytes 14.5 H, Segmented Neutrophils 77 H, Band Neutrophils 5, Absolute Lymphocytes 1.8, Lymphocytes 10 L, Monocytes 7, Absolute Monocytes 0.7 H, Absolute Eosinophils 0, Basophils 1, Absolute Basophils 0, Platelet Estimate VERIFIED BY SMEAR, Anisocytosis 1+, PUBS MCHC 32.5 L, Urine Color YEL, Urine Clarity CLEAR, Urine pH 6.0, Ur Specific [place] 1.010, Urine Protein NEG, Urine Ketones NEG, Urine Nitrite NEG, Urine Bilirubin NEG, Urine Urobilinogen 0.2, Ur Leukocyte Esterase MOD H, Ur Microscopic SEDIMENT EXAMINED, Urine RBC 1-3, Urine WBC 15-25 H, Ur Epithelial Cells RARE, Urine Bacteria MOD H, Urine Mucus RARE, Micro UA Comment MORE INFO: H, Urine Hemoglobin NEG, Urine Glucose NEG Impression/Plan Impression/Plan Impression/Plan: Impression 61 year old woman * Hypoxemic respiratory failure * Sepsis with LLL pneumonia, HCAP and hx of pseduomonas (resistant to ceftazadime) * 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 Plan -TRC/Nebs -supplement o2 with a goal spo2 >88% -empiric abx with broad coverage - hx of pseudomonas - would change ceftazadime to meropenem (pseudomonas was previously resistant to ceftazadime) cont Vancomycin to cover gram positives such as MRSA given recent hospitalization -check nares for MRSA -persistent fluid and abnormal soft tissue under right hemidipahragm and abd findings per primary team, would pursue ct abd as recommended by radiology DVT prophylaxis at all times
[2016-10-30 14:53] VITALS: BP 86/40
--- NOTE | 2016-10-30 15:10 | NUR ---
NURSING NOTE: PATIENT LEFT FLOOR VIA STRETCHER WITH DISTRIBUTION FOR CT SCAN. NO ACUTE DISTRESS NOTED. PATIENT ON 5L VIA NC. REPORT GIVEN TO ONCOMING NURSE.
--- NOTE | 2016-10-30 15:58 | CT SCAN REPORT ---
EXAMINATION: CT ABDOMEN AND PELVIS WITHOUT CONTRAST CLINICAL INFORMATION: Desaturation. COMPARISON: CT abdomen and pelvis 09/30/2016. TECHNIQUE: Multidetector volumetric imaging was performed from the superior aspect of the liver through the pubic symphysis. Sagittal and coronal reformatted images were obtained on the technologist's workstation. No oral or intravenous contrast. DLP: 283.36 mGy-cm. FINDINGS: LUNG BASES: Bibasilar consolidation with air bronchograms at both lung bases. Small bilateral pleural effusions. The volume of the pleural effusions have diminished since exam of 09/30/2016. LIVER, GALLBLADDER, AND BILIARY TREE: 1 cm cyst at the dome right lobe liver and another at the anterior left lobe of liver. No suspicious liver lesion. No intrapelvic bile duct dilatation. The gallbladder is unremarkable with no evidence of radiopaque gallstones, gallbladder wall thickening, or obvious pericholecystic inflammatory changes. PANCREAS: Unremarkable. SPLEEN: Unremarkable. ADRENAL GLANDS: Unremarkable. KIDNEYS AND URETERS: The kidneys are normal in size, shape, and attenuation. No hydronephrosis, hydroureter, or calculi seen. No perinephric stranding. BLADDER: Unremarkable. GASTROINTESTINAL TRACT: No acute change of bowel. No bowel obstruction. No bowel wall thickening or edema. The appendix is not identified. [id number] volume of stool in colon. Left-sided colostomy. There is diverticulosis of colon but no diverticulitis. MESENTERY: There is small amount of fluid around the liver right upper quadrant. The volume of this fluid has diminished slightly since exam of 09/30/2016. No inflammation of mesentery. No free air. ABDOMINAL WALL: Left-sided colostomy. Generalized anasarca has diminished since prior CAT scan 09/30/2016. LYMPH NODES: Normal. VASCULAR: Atherosclerotic vascular wall calcifications of aorta and iliac arteries. No aneurysm. PELVIC VISCERA: Uterus is anteverted. Small coarse calcification at the fundus of small fibroid. No adnexal abnormality. OSSEOUS STRUCTURES: Grade 2 anterolisthesis of L4 and L5 with disc height narrowing and endplate spurs and sclerosis and vacuum disc phenomenon at L4-L5. No spondylolysis. Marked facet joint arthrosis at L5-S1. Degenerative lipping at the anterior endplates of lower thoracic and lumbar vertebrae. IMPRESSION: 1. Bibasilar consolidation with bilateral pleural effusions. 2. Left-sided colostomy. Diverticulosis of colon but no acute change of bowel. 3. Small amount of fluid around the liver. Volume of fluid though is diminished since exam of 09/30/2016. 4. Generalized anasarca has diminished since CAT scan of 09/30/2016.
[2016-10-30 22:49] VITALS: BP 108/52
[2016-10-31 07:40] VITALS: BP 114/68
--- NOTE | 2016-10-31 08:44 | PN- Housestaff ---
Subjective Follow-up For: Pneumonia Subjective: Have seen and examined the patient. The patient was sitting comfortably in the bed. She is a very pleasant 61-year-old female. She told me that she doesn't have any complaints. There is no fever chest pain or palpitations. She does not complain of abdominal pain. 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 She has pain in her right arm at IV site. There were no overnight acute events. There were couple episodes of loose stool the patient has history of colectomy, C. difficile toxin was sent by the night team Review of Systems Constitutional: Denies: chills, diaphoresis, fever, malaise. Cardiovascular: Denies: chest pain, edema, orthopena. Respiratory: Denies: cough, hemoptysis, orthopnea. Gastrointestinal: Reports: diarrhea (CLOECTOMY BAG). Genitourinary: Reports: no symptoms. Objective Last 24 Hrs of Vital Signs/I&O Vital Signs Date Time Temp Pulse Resp B/P B/P Pulse O2 O2 Flow FiO2 Mean Ox Delivery Rate 10/31 0740 98.5 63 20 114/68 95 10/31 0000 Nasal 5.0L Cannula 10/30 2249 98.9 73 18 108/52 93 Nasal 5.0L Cannula 10/30 1850 97 Nasal 5.0L Cannula 10/30 1600 Nasal 5.0L Cannula 10/30 1453 98.1 70 20 86/40 94 Nasal 2.0L Cannula 10/30 1113 96 Nasal 5.0L Cannula Intake & Output 10/31 1600 10/31 0800 10/31 0000 Intake Total 450 Output Total 900 Balance -900 450 Intake, Oral 450 Output, Stool 300 Output, Urine 600 Physical Exam General Appearance: Alert, Oriented X3, Cooperative Skin: No Rashes, No Breakdown, MULTIPLE BRUSIES Cardiovascular: Normal S1, Normal S2, No Murmurs Lungs: Clear to Auscultation, Normal Air Movement Abdomen: Normal Bowel Sounds, Soft, No Tenderness, no guarding or rebound; colostomy bag is noted on left-sided abdomen with loose stool Neurological: Normal Speech Current Medications: Current Medications Sig/Ry Start time Last Medication Dose Route Stop Time Status Admin Acetaminophen 1,000 MG Q6P PRN 10/29 1630 AC IV Albuterol Sulfate 3 ML BID 10/29 2200 AC 10/31 INH 1125 Albuterol Sulfate 3 ML Q8P PRN 10/29 1630 AC INH Albuterol Sulfate 2 PUF Q8P PRN 10/29 1630 AC INH Budesonide/ 2 PUF BID 10/29 2200 AC 10/30 Formoterol Fumarate INH 2142 Clonazepam 0.5 MG BID PRN 10/29 1645 AC 10/31 PO 11/05 2159 0851 Docusate Sodium 100 MG BID PRN 10/29 1645 AC PO Enoxaparin Sodium 40 MG DAILY 10/30 1000 AC 10/30 SC 0916 Gabapentin 300 MG TID 10/29 1626 AC 10/30 PO 2142 Ibuprofen 600 MG Q6P PRN 10/29 1630 AC 10/30 PO 0943 Magnesium Oxide 400 MG DAILY 10/30 1000 AC 10/30 PO 0915 Melatonin 9 MG QPM PRN 10/29 1645 AC 10/30 PO 2220 Meropenem 1 GM IQ8 10/29 1730 AC 10/31 IV 0851 Morphine Sulfate 2 MG Q4P PRN 10/29 1630 AC IV Omeprazole 40 MG DAILY AC PRN 10/29 1630 AC PO Polyethylene Glycol 17 GM DAILY PRN 10/29 1645 AC PO Sertraline HCl 200 MG DAILY 10/29 1628 AC 10/30 PO 0915 Trazodone HCl 200 MG QPM 10/29 2200 AC 10/30 PO 2142 Vancomycin HCl 1,000 MG 2000 10/30 2000 AC 10/30 Sodium Chloride 250 ML IV 2142 Vancomycin HCl 1,000 MG DAILY@1300 10/30 1300 DC Sodium Chloride 250 ML IV Last 24 Hrs of Lab/[place] Results Last 24 Hrs of Labs/Mics: Laboratory Tests 10/31/16 0825: Urine Color YEL, Urine Clarity HAZY H, Urine pH 6.0, Ur Specific [place] 1.015, Urine Protein NEG, Urine Ketones NEG, Urine Nitrite NEG, Urine Bilirubin NEG, Urine Urobilinogen 0.2, Ur Leukocyte Esterase MOD H, Ur Microscopic SEDIMENT EXAMINED, Urine RBC RARE, Urine WBC 15-25 H, Ur Epithelial Cells MOD H, Urine Bacteria FEW H, Urine Hemoglobin NEG, Urine Glucose NEG Microbiology 10/31 0700 STOOL: Clostridium difficile Toxin A & B - COMP 10/30 1600 UPPER RESP: Surveillance Culture - RECD Assessment/Plan Assessment: This is a 61 yo female with PMH of recent prolonged ICU stay for sigmoid perforation and abscess with colostomy.At that time she had been intubated, successfully extubated, and d/c on 2L NC. She presented with CC of fever, chills, SOB, cough and weakness of one day duration Doppler: negative for DVT --CT Chest: Left lower lobe pneumonia. Small infiltrate or atelectasis in the right lower lobe, inferior segment of the lingula and right middle lobe. Persistent fluid and abnormal soft tissue seen under the right hemidiaphragm adjacent to the right lobe of the liver. --CT of Abdomen and Pelvis w/o contrast impression: on 10/30 1. Bibasilar consolidation with bilateral pleural effusions. 2. Left-sided colostomy. Diverticulosis of colon but no acute change of bowel. 3. Small amount of fluid around the liver. Volume of fluid though is diminished since exam of 09/30/2016. PLAN: Hospital-acquired pneumonia the patient is currently on meropenem and vancomycin , she has previously grown pseudomonas intermittently resistant to Ceftaz. * CT scan done on 10/30 showed bibasilar consolidation with bilateral effusion * Continue meropenem and was and vancomycin * ID consultation has been placed for recommendations about antibiotic regimen and duration * upper respiratory nostril culture is still pending Hypoxemic respiratory failure Pt is on 2L NC oxygen * TRC/Nebs * supplement o2 with a goal Spo2 >88% as per pulmonology recommendations * Symbicort 2 puffs BID Possible sepsis patient came in with fever of 102, elevated wbc, tachycardia and desaturation there is concern of sepsis 2/2 PNA. * The initial lactic acid on admission was 3.2 second trended down to 1.7 and today it is 0.7 * White cell count has trended down from 17.1 on admission to 9.5 today * Blood cultures negative to date * UA showed hazy color moderate leukoesterase with 15-25 urine WBCs. At this point patient does not have any symptoms of UTI including dysuria burning and increased frequency. Urine culture is negative to date Diarrhea Patient is status post pericolic abscess and sigmoid colectomy and colostomy since august 2016. Reported two episodes of loose stool in colostomy bag * C.diff toxin sent Problem List: 1. Pneumonia of both lower lobes Pain Ratin Pain Location: none Pain Goal: Pain 4 or less Pain Plan: morphine, acetaminophin 100mg, motrin Tomorrow's Labs & Rationales: cbc bep DVT/Prophylaxis: pharmacological, lovenox * O2 for sats > 92 * blood cx; negative to date * urine cx; negative to date * sputum cx; negative to date * Appreciate pulm recommendations "Question new increasing low attenuation in the periportal region and upper abdominal retroperitoneum" on CT: Given prev hx of infectio and surgery will proceed with further eval * CAT scan abd without contrast Problem List: 1. Pneumonia of both lower lobes Pain Ratin Pain Location: none Pain Goal: Pain 4 or less Tomorrow's Labs & Rationales: cbc bep DVT/Prophylaxis: pharmacological, lovenox
--- NOTE | 2016-10-31 09:38 | PN- Pulmonary ---
Subjective HPI/Critical Care Issues: pt seen and examined comfortable on o2 Objective Current Medications: Current Medications Sig/Ry Start time Last Medication Dose Route Stop Time Status Admin Acetaminophen 1,000 MG Q6P PRN 10/29 1630 AC IV Albuterol Sulfate 3 ML BID 10/29 2200 AC 10/30 INH 1850 Albuterol Sulfate 3 ML Q8P PRN 10/29 1630 AC INH Albuterol Sulfate 2 PUF Q8P PRN 10/29 1630 AC INH Budesonide/ 2 PUF BID 10/29 2200 AC 10/30 Formoterol Fumarate INH 2142 Clonazepam 0.5 MG BID PRN 10/29 1645 AC 10/31 PO 11/05 2159 0851 Docusate Sodium 100 MG BID PRN 10/29 1645 AC PO Enoxaparin Sodium 40 MG DAILY 10/30 1000 AC 10/30 SC 0916 Gabapentin 300 MG TID 10/29 1626 AC 10/30 PO 2142 Ibuprofen 600 MG .STK-MED ONE 10/30 0942 DC PO 10/30 0943 Ibuprofen 600 MG Q6P PRN 10/29 1630 AC 10/30 PO 0943 Magnesium Oxide 400 MG DAILY 10/30 1000 AC 10/30 PO 0915 Melatonin 9 MG QPM PRN 10/29 1645 AC 10/30 PO 2220 Meropenem 1 GM IQ8 10/29 1730 AC 10/31 IV 0851 Morphine Sulfate 2 MG Q4P PRN 10/29 1630 AC IV Omeprazole 40 MG DAILY AC PRN 10/29 1630 AC PO Polyethylene Glycol 17 GM DAILY PRN 10/29 1645 AC PO Sertraline HCl 200 MG DAILY 10/29 1628 AC 10/30 PO 0915 Sodium Chloride 1,000 ML Q13H 10/29 2330 DC 10/30 IV 0015 Trazodone HCl 200 MG QPM 10/29 2200 AC 10/30 PO 2142 Vancomycin HCl 1,000 MG 2000 10/30 2000 AC 10/30 Sodium Chloride 250 ML IV 2142 Vancomycin HCl 1,000 MG DAILY@1300 10/30 1300 DC Sodium Chloride 250 ML IV Vital Signs & I&O Last 24 Hrs of Vitals and I&O: Vital Signs Date Time Temp Pulse Resp B/P B/P Pulse O2 O2 Flow FiO2 Mean Ox Delivery Rate 10/31 0740 98.5 63 20 114/68 95 10/31 0000 Nasal 5.0L Cannula 10/30 2249 98.9 73 18 108/52 93 Nasal 5.0L Cannula 10/30 1850 97 Nasal 5.0L Cannula 10/30 1600 Nasal 5.0L Cannula 10/30 1453 98.1 70 20 86/40 94 Nasal 2.0L Cannula 10/30 1113 96 Nasal 5.0L Cannula Intake & Output 10/31 1600 10/31 0800 10/31 0000 Intake Total 450 Output Total 900 Balance -900 450 Intake, Oral 450 Output, Stool 300 Output, Urine 600 Exam Other Physical Findings: gen awake and alert heent ncat cvs s1, s2 lungs rare rhonchi abd colostomy ext without edema Results Last 24 Hrs of Lab Results: Laboratory Tests 10/31/16 0825: Urine Color Pending, Urine Clarity Pending, Urine pH Pending, Ur Specific [place] Pending, Urine Protein Pending, Urine Ketones Pending, Urine Nitrite Pending, Urine Bilirubin Pending, Urine Urobilinogen Pending, Ur Leukocyte Esterase Pending, Ur Microscopic SEDIMENT EXAMINED, Urine RBC Pending, Urine Hemoglobin Pending, Urine Glucose Pending Impression/Plan Impression/Plan Impression/Plan: Impression 61 year old woman * Hypoxemic respiratory failure * Sepsis with LLL pneumonia, HCAP and hx of pseduomonas (resistant to ceftazadime) * 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 Plan -TRC/Nebs -supplement o2 with a goal spo2 >88% -empiric abx with broad coverage - hx of pseudomonas - would change ceftazadime to meropenem (pseudomonas was previously resistant to ceftazadime) cont Vancomycin to cover gram positives such as MRSA given recent hospitalization -check nares for MRSA DVT prophylaxis at all times
--- NOTE | 2016-10-31 11:50 | PN- Student ---
Subjective Subjective: Follow up for : pneumonia subjective: I have seen and examined this patient. patient was sitting up comfortably in bed on 3L 02 by [place]. no acute distress. Patient states she has no complaints at this time. 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 Overnight, the patient had a few episodes of diarrhea and the night team sent out specimen for C. diff toxin. there were no acute over night events. Patient is afebrile. At this morning's visit, patient denies chest pain, dyspnea, fever, chills, weakness, n/v, abdominal pain. patient reports mild pain to left lower leg. Review of Systems Constitutional: Reports: no symptoms EENTM: Reports: no symptoms. Respiratory: Reports: no symptoms. Cardiovascular: Reports: no symptoms. GI: Reports: no symptoms. Genitourinary: Reports: no symptoms. Musculoskeletal: Reports: no symptoms. Skin: Reports: no symptoms. Neurological/Psychological: Reports: no symptoms. Hematologic/Endocrine: Reports: no symptoms. Immunologic/Allergic: Reports: no symptoms. Allergies/Medications Allergies: Coded Allergies: azithromycin (Intermediate, NAUSEA AND VOMITING 08/26/16) Objective Objective: Current Medications Sig/Ry Start time Last Medication Dose Route Stop Time Status Admin Acetaminophen 1,000 MG Q6P PRN 10/29 1630 AC IV Albuterol Sulfate 3 ML BID 10/29 2200 AC 10/31 INH 1125 Albuterol Sulfate 3 ML Q8P PRN 10/29 1630 AC INH Albuterol Sulfate 2 PUF Q8P PRN 10/29 1630 AC INH Budesonide/ 2 PUF BID 10/29 2200 AC 10/30 Formoterol Fumarate INH 2142 Clonazepam 0.5 MG BID PRN 10/29 1645 AC 10/31 PO 11/05 215 0851 Docusate Sodium 100 MG BID PRN 10/29 1645 AC PO Enoxaparin Sodium 40 MG DAILY 10/30 1000 AC 10/30 SC 0916 Gabapentin 300 MG TID 10/29 1626 AC 10/30 PO 2142 Ibuprofen 600 MG Q6P PRN 10/29 1630 AC 10/30 PO 0943 Magnesium Oxide 400 MG DAILY 10/30 1000 AC 10/30 PO 0915 Melatonin 9 MG QPM PRN 10/29 1645 AC 10/30 PO 2220 Meropenem 1 GM IQ8 10/29 1730 AC 10/31 IV 0851 Morphine Sulfate 2 MG Q4P PRN 10/29 1630 AC IV Omeprazole 40 MG DAILY AC PRN 10/29 1630 AC PO Polyethylene Glycol 17 GM DAILY PRN 10/29 1645 AC PO Sertraline HCl 200 MG DAILY 10/29 1628 AC 10/30 PO 0915 Sodium Chloride 1,000 ML Q13H 10/29 2330 DC 10/30 IV 0015 Trazodone HCl 200 MG QPM 10/29 2200 AC 10/30 PO 2142 Vancomycin HCl 1,000 MG 2000 10/31 1999 AC 10/30 Sodium Chloride 250 ML IV 2142 Vancomycin HCl 1,000 MG DAILY@1300 10/30 1300 DC Sodium Chloride 250 ML IV Vital Signs Date Time Temp Pulse Resp B/P B/P Pulse O2 O2 Flow FiO2 Mean Ox Delivery Rate 10/31 0740 98.5 63 20 114/68 95 10/31 0000 Nasal 5.0L Cannula 10/30 2249 98.9 73 18 108/52 93 Nasal 5.0L Cannula 10/30 1850 97 Nasal 5.0L Cannula 10/30 1600 Nasal 5.0L Cannula 10/30 1453 98.1 70 20 86/40 94 Nasal 2.0L Cannula Intake & Output 10/31 1600 10/31 0800 10/31 0000 Intake Total 450 Output Total 900 Balance -900 450 Intake, Oral 450 Output, Stool 300 Output, Urine 600 physical exam: General Appearance: alert and oriented x3, cooperative, mood is pleasant and affect appropriate. skin: warm, smooth, and dry. no excessive thickening or thinning. no tenting. capillary refill is <2 seconds. Head: normal cephalic, autramatic. Eyes: bilaterallY PERRL, EOMI. Neck: supple. Cardioascular: regular rate and rhythm. no lifts or heaves. PMI at 5th ICS MCL. normal s1 and s2. no murmurs, rubs, or gallops heard. Lungs: bilateral crackles at bases Abdomen: soft, non distended. non tender. no hepatosplenomegaly. no CVA tenderness. colostomy bag in place over the left side of abdomen. [employer]: no focal neuroligical deficits. alert and orieted x3. Extremities: no edema, cyanosis, or clubbing. Laboratory Tests 10/31/16 0825: Urine Color YEL, Urine Clarity HAZY H, Urine pH 6.0, Ur Specific [place] 1.015, Urine Protein NEG, Urine Ketones NEG, Urine Nitrite NEG, Urine Bilirubin NEG, Urine Urobilinogen 0.2, Ur Leukocyte Esterase MOD H, Ur Microscopic SEDIMENT EXAMINED, Urine RBC RARE, Urine WBC 15-25 H, Ur Epithelial Cells MOD H, Urine Bacteria FEW H, Urine Hemoglobin NEG, Urine Glucose NEG 10/30/16 0730: Anion Gap 7, Estimated GFR > 60, BUN/Creatinine Ratio 26.7 H, Lactic Acid 0.7, CBC w Diff NO MAN DIFF REQ, RBC 3.22 L, MCV 94.9, MCH 31.4 H, RDW 17.4 H, MPV 6.9 L, Gran % 80.4 H, Lymphocytes % 10.5 L, Monocytes % 8.0, Eosinophils % 0.9, Basophils % 0.2, Absolute Granulocytes 10.0 H, Absolute Lymphocytes 1.3, Absolute Monocytes 1.0 H, Absolute Eosinophils 0.1, Absolute Basophils 0, PUBS MCHC 33.1 10/29/16 1634: Lactic Acid Cancelled 10/29/16 1618: Lactic Acid 1.4 10/29/16 1220: Anion Gap 14, Estimated GFR > 60, BUN/Creatinine Ratio 26.3 H, Glucose 81, Lactic Acid 3.2 H, Calcium 9.4, Total Bilirubin 0.3, AST 26, ALT 30, Alkaline Phosphatase 80, Troponin I < 0.01, C-Reactive Prot, Quant 1.2 H, Pro-B- Natriuretic Pept 491 H, Total Protein 7.0, Albumin 3.6, Globulin 3.4, Albumin/ Globulin Ratio 1.1, D-Dimer High Sensitivty 753 H, CBC w Diff MAN DIFF ORDERED, RBC 3.44 L, MCV 95.3, MCH 30.9, RDW 17.4 H, MPV 7.0 L, Gran % 85.0 H, Lymphocytes % 10.7 L, Monocytes % 3.8, Eosinophils % 0.3, Basophils % 0.2, Absolute Granulocytes 14.5 H, Segmented Neutrophils 77 H, Band Neutrophils 5, Absolute Lymphocytes 1.8, Lymphocytes 10 L, Monocytes 7, Absolute Monocytes 0.7 H, Absolute Eosinophils 0, Basophils 1, Absolute Basophils 0, Platelet Estimate VERIFIED BY SMEAR, Anisocytosis 1+, PUBS MCHC 32.5 L, Urine Color YEL, Urine Clarity CLEAR, Urine pH 6.0, Ur Specific [place] 1.010, Urine Protein NEG, Urine Ketones NEG, Urine Nitrite NEG, Urine Bilirubin NEG, Urine Urobilinogen 0.2, Ur Leukocyte Esterase MOD H, Ur Microscopic SEDIMENT EXAMINED, Urine RBC 1-3, Urine WBC 15-25 H, Ur Epithelial Cells RARE, Urine Bacteria MOD H, Urine Mucus RARE, Micro UA Comment MORE INFO: H, Urine Hemoglobin NEG, Urine Glucose NEG Microbiology 10/29 1240 URINE ROUT: Urine Culture - COMP Results Results: Laboratory Tests 10/31/16 0825: Urine Color YEL, Urine Clarity HAZY H, Urine pH 6.0, Ur Specific [place] 1.015, Urine Protein NEG, Urine Ketones NEG, Urine Nitrite NEG, Urine Bilirubin NEG, Urine Urobilinogen 0.2, Ur Leukocyte Esterase MOD H, Ur Microscopic SEDIMENT EXAMINED, Urine RBC RARE, Urine WBC 15-25 H, Ur Epithelial Cells MOD H, Urine Bacteria FEW H, Urine Hemoglobin NEG, Urine Glucose NEG 10/30/16 0730: Anion Gap 7, Estimated GFR > 60, BUN/Creatinine Ratio 26.7 H, Lactic Acid 0.7, CBC w Diff NO MAN DIFF REQ, RBC 3.22 L, MCV 94.9, MCH 31.4 H, RDW 17.4 H, MPV 6.9 L, Gran % 80.4 H, Lymphocytes % 10.5 L, Monocytes % 8.0, Eosinophils % 0.9, Basophils % 0.2, Absolute Granulocytes 10.0 H, Absolute Lymphocytes 1.3, Absolute Monocytes 1.0 H, Absolute Eosinophils 0.1, Absolute Basophils 0, PUBS MCHC 33.1 10/29/16 1634: Lactic Acid Cancelled 10/29/16 1618: Lactic Acid 1.4 10/29/16 1220: Anion Gap 14, Estimated GFR > 60, BUN/Creatinine Ratio 26.3 H, Glucose 81, Lactic Acid 3.2 H, Calcium 9.4, Total Bilirubin 0.3, AST 26, ALT 30, Alkaline Phosphatase 80, Troponin I < 0.01, C-Reactive Prot, Quant 1.2 H, Pro-B- Natriuretic Pept 491 H, Total Protein 7.0, Albumin 3.6, Globulin 3.4, Albumin/ Globulin Ratio 1.1, D-Dimer High Sensitivty 753 H, CBC w Diff MAN DIFF ORDERED, RBC 3.44 L, MCV 95.3, MCH 30.9, RDW 17.4 H, MPV 7.0 L, Gran % 85.0 H, Lymphocytes % 10.7 L, Monocytes % 3.8, Eosinophils % 0.3, Basophils % 0.2, Absolute Granulocytes 14.5 H, Segmented Neutrophils 77 H, Band Neutrophils 5, Absolute Lymphocytes 1.8, Lymphocytes 10 L, Monocytes 7, Absolute Monocytes 0.7 H, Absolute Eosinophils 0, Basophils 1, Absolute Basophils 0, Platelet Estimate VERIFIED BY SMEAR, Anisocytosis 1+, PUBS MCHC 32.5 L, Urine Color YEL, Urine Clarity CLEAR, Urine pH 6.0, Ur Specific [place] 1.010, Urine Protein NEG, Urine Ketones NEG, Urine Nitrite NEG, Urine Bilirubin NEG, Urine Urobilinogen 0.2, Ur Leukocyte Esterase MOD H, Ur Microscopic SEDIMENT EXAMINED, Urine RBC 1-3, Urine WBC 15-25 H, Ur Epithelial Cells RARE, Urine Bacteria MOD H, Urine Mucus RARE, Micro UA Comment MORE INFO: H, Urine Hemoglobin NEG, Urine Glucose NEG Microbiology 10/31 0700 STOOL: Clostridium difficile Toxin A & B - COMP 10/30 1600 UPPER RESP: Surveillance Culture - RECD 10/30 929 LOWER RESP: Respiratory Culture - RES 10/30 0930 LOWER RESP: Gram Stain - RES 10/29 2320 LOWER RESP: Respiratory Culture - CAN Cancelled: Cancelled via OE: WRONG DAY 10/29 232 LOWER RESP: Gram Stain - CAN Cancelled: Cancelled via OE: WRONG DAY 10/29 1515 BLOOD: Blood Culture - RES 10/29 1240 URINE ROUT: Urine Culture - COMP 10/29 1235 BLOOD: Blood Culture - RES Assessment/Plan Assessment: Assessment: patient is a 61 year old female with past medical hx of recent prolonged ICU stay for 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 patient also has hx of COPD, gastritis, anxity,depression, DJD, c. diff infection, and hx of sputum cultures with pseudomonas resistant to ceftazidime. Due to recent hospital stay, patient is high risk for hospital aquired pneumonia. patient had presented to ED with complaints of fever, chills, dyspnea, cough, and weakness of one day. patient also complained of left leg pain and edema. Doppler was done and unremarkable. patient was tachycardic in ED and desatted at 86% with elevated WBCs so patient was admitted to general medicine for further workup and monitoring concerning of possible sepsis and pneumonia. CXR: Significant interval decrease in size of previously identified bilateral pleural effusions and significant interval improvement of bibasilar airspace disease Doppler: negative for DVT. CTA IMPRESSION: negative for PE. Left lower lobe pneumonia. Small infiltrate or atelectasis in the right lower lobe, inferior segment of the lingula and right middle lobe. Persistent fluid and abnormal soft tissue seen under the right hemidiaphragm adjacent to the right lobe of the liver. Question new increasing low attenuation in the periportal region and upper abdominal retroperitoneum. This could be better evaluated with CT of the abdomen if clinically indicated CT of Abdomen and Pelvis w/o contrast impression: 1. Bibasilar consolidation with bilateral pleural effusions. 2. Left-sided colostomy. Diverticulosis of colon but no acute change of bowel. 3. Small amount of fluid around the liver. Volume of fluid though is diminished since exam of 09/30/2016. Plan: 1. hospital aquired pneumonia with possibility of sepsis - continue IV vanco/IV Meropenem - lactic acid is trending down. on admission was 3.2 and most recent lab is 0.7 - WBC count is also trending down from 17.1 to 12.4 - stool sample was negative for c. diff - Urine culture - negative up to this point. - U/A- showed hazy color, moderate leukocyte esterase, 15-25 urine WBC with moderate epithelial cells and few urine bacteria. negative for nitrite, ketones, protein, and bilirubin. so no sign of UTI at this point. - upper respiratory nostril culture still pending - continue O2 for sat >92% - TRC - DVT prophylaxis with lovenox - ID consultation - upper respiratory nostril culture still pending - continue O2 for sat >92% - ID consultation
--- NOTE | 2016-10-31 13:30 | PN- Att Addend ---
Attending Addendum Attending Brief Note Patient seen and examined. Plan of care discussed with the medical team and the patient. Available lab work and radiology test reports were reviewed. Patient does not report any fever chills nausea vomiting or abdominal pain. She does report the low-dose stool in her colostomy bag. Assessment * Healthcare associated pneumonia * Sepsis * Status post pericolic abscess and sigmoid colectomy and colostomy * History of DJD * History of depression * History of anxiety * Prior history of C. difficile Plan * Continue current antibiotics meropenem and vancomycin * ID consult * Observe for diarrhea; if diarrhea continues check C. difficile Exam: General: Patient awake alert oriented without any distress CVS: S1 plus S2 without any murmur or gallops Chest: Few scattered crepitation without any wheeze. There is no respiratory distress. Abdomen: Soft nontender, bowel sound present, no guarding or rebound; colostomy bag is noted on left-sided abdomen with loose stool [employer]KER: Awake alert oriented without any focal neuro deficit and follows command appropriately Extremities: No edema; no clubbing or cyanosis noted Laboratory Tests 10/31 0825 Urines Urine Color (YEL,AMB,STR) YEL Urine Clarity (CLEAR) HAZY H Urine pH (5.0 - 8.0) 6.0 Ur Specific [place] (1.001 - 1.035) 1.015 Urine Protein (NEG,<30 MG/DL) NEG Urine Ketones (NEG) NEG Urine Nitrite (NEG) NEG Urine Bilirubin (NEG) NEG Urine Urobilinogen (0.1 - 1.0 EU/dl) 0.2 Ur Leukocyte Esterase (NEG) MOD H Ur Microscopic SEDIMENT EXAMINED Urine RBC (0 - 5 /HPF) RARE Urine WBC (0 - 2 /HPF) 15-25 H Ur Epithelial Cells (NONE,FEW) MOD H Urine Bacteria (NEG/NONE) FEW H Urine Hemoglobin (NEG) NEG Urine Glucose (N MG/DL) NEG Microbiology Date/Time Procedure - Status Source Growth 10/31 0700 Clostridium difficile Toxin A & B - COMP STOOL 10/30 1600 Surveillance Culture - RECD UPPER RESP Vital Signs Date Time Temp Pulse Resp B/P B/P Pulse O2 O2 Flow FiO2 Mean Ox Delivery Rate 10/31 1143 94 Nasal 3.0L Cannula 10/31 0740 98.5 63 20 114/68 95 10/31 0000 Nasal 5.0L Cannula 10/30 2249 98.9 73 18 108/52 93 Nasal 5.0L Cannula 10/30 1850 97 Nasal 5.0L Cannula 10/30 1600 Nasal 5.0L Cannula 10/30 1453 98.1 70 20 86/40 94 Nasal 2.0L Cannula
[2016-10-31 14:59] VITALS: BP 102/60
[2016-10-31 15:54] LABS: ABSOLUTE BASOPHIL COUNT 0 /CUMM (0.0-0.2); ABSOLUTE EOSINOPHIL COUNT 0.2 /CUMM (0.0-0.7); ABSOLUTE GRANULOCYTE CT 7.3 /CUMM (1.4-6.5); ABSOLUTE LYMPH COUNT 1.2 /CUMM (1.2-3.4); ABSOLUTE MONOCYTE COUNT 0.8 /CUMM (0.10-0.60); BASOPHIL % 0.2 % (0.0-2.0); EOSINOPHIL % 2.1 % (0-5); GRANULOCYTE % 76.5 % (42.2-75.2); HEMATOCRIT 33.1 % (37-47); MEAN CORPUSCULAR HGB 30.9 PG (27.0-31.0); MEAN CORPUSCULAR HGB CONC 32.6 G/DL (33.0-37.0); MEAN CORPUSCULAR VOLUME 94.8 FL (81.0-99.0); MEAN PLATELET VOLUME 7.6 FL (7.4-10.4); PLATELET COUNT 521 /CUMM (130-400); RBC DISTRIBUTION WIDTH 17.5 % (11.5-14.5); RED BLOOD CELL CT 3.49 /CUMM (4.20-5.40); WHITE BLOOD CELL COUNT 9.5 /CUMM (4.8-10.8)
--- NOTE | 2016-10-31 18:33 | Cons- Infect Disease ---
General Information and HPI Consulting Request Date of Consult: 10/31/16 Requested By: JACQUIE KEEN MD Reason for Consult: Rule out sepsis Source of Information: patient, old records History of Present Illness: This is a 61-year-old woman with a history of COPD, hospitalized 2 months prior to admission with a perforated sigmoid diverticulitis, requiring a Granger's procedure and complicated by the development of a purulent right upper quadrant collection, requiring drainage for nearly 3 weeks, and treated with IV antibiotics for nearly 4 weeks, with her hospital course also complicated by bilateral transudative pleural effusions, with bilateral thoracenteses, complicated by a left pneumothorax, requiring a chest tube, and C. difficile, ultimately discharged to [facility] on po Flagyl to complete a 10 day course, discharged home after 2 weeks, where she did well until the morning of admission on October 29 when she presented to the emergency room with the acute onset of shortness of breath, fevers and chills. On admission she was febrile to 102.5. Laboratory data revealed a white blood cell count of 17,000, BUN/creatinine 21 and 0.8, lactic acid 3.2. Urinalysis 1-3 RBCs/15-25 WBCs. Chest x-ray revealed a significant decrease in the bilateral pleural effusions and significant improvement in the bibasilar airspace disease. A left leg Doppler October 29 was negative. A CTA of the chest revealed a left lower lobe pneumonia with a small infiltrate or atelectasis in the right lower lobe, inferior segment of the lingula and right middle lobe. A CT of the abdomen and pelvis revealed bibasilar consolidation with bilateral pleural effusions and a small amount of fluid around the liver, diminished from the previous exam. She was given Vancomycin and Ceftazidime in the emergency room and was then changed to Vancomycin and Meropenem. She has defervesced and white blood cell count has normalized. She feels improved but does note bilateral lower extremity pruritus and discomfort, which she states began several hours ago. Allergies/Medications Allergies: Coded Allergies: azithromycin (Intermediate, NAUSEA AND VOMITING 08/26/16) Home Med List: Aclidinium [place] (Tudorza Pressair) 400 MCG/ACTUATION AER.POW.BA 1 PUFF PO BID BREATHING PROBLEMS (Reported) Albuterol Sulfate (Ventolin Hfa) 90 MCG HFA.AER.AD 2 PUF INH Q8P PRN COPD ( Reported) Albuterol Sulfate 2.5 MG/3 ML (0.083 %) VIAL.NEB 3 ML INH Q8P PRN SHORTNESS OF BREATH . Baclofen 10 MG TABLET 1 TAB PO UNKNOWN (Reported) Budesonide/Formoterol Fumarate (Symbicort 160-4.5 Mcg Inhaler) 160 MCG-4.5 MCG/ ACTUATION HFA.AER.AD 2 PUF INH BID BREATHING PROBLEMS (Reported) Clonazepam 0.5 MG TABLET 1 TAB PO BID ANXIETY (Reported) Docusate Sodium (Colace) 100 MG CAPSULE 1 CAP PO BID CONSTIPATION (Reported) Furosemide 20 MG TABLET 1 TAB PO DAILY WATER RETENTION (Reported) Gabapentin (Neurontin) 300 MG CAPSULE 1 CAP PO TID ANXIETY (Reported) Magnesium Oxide 400 MG TABLET 400 MG PO DAILY supplement . Melatonin 3 MG TABLET 3 TAB PO QPM SLEEP (Reported) Oxycodone HCl/Acetaminophen (Percocet 5-325 MG Tablet) 5 MG-325 MG TABLET 1 TAB PO Q4 HRS NEEDED PRN PAIN (Reported) Pantoprazole Sodium 40 MG TABLET.DR 1 TAB PO DAILY ACID REFLUX (Reported) Polyethylene Glycol 3350 (Miralax) 17 GRAM POWD.PACK 1 PAC PO DAILY PRN CONSTIPATION (Reported) dissolve in water Sertraline HCl (Zoloft) 100 MG TABLET 2 TAB PO DAILY DEPRESSION (Reported) Trazodone HCl 100 MG TABLET 2 TAB PO QPM SLEEP (Reported) Past History Travel History Traveled to [place] past 21 day No Medical History Blood Transfusion Hx: No Neurological: NONE EENT: NONE Cardiovascular: NONE Respiratory: COPD Gastrointestinal: gastritis, HP-neg C Difficile 2016 diverticulosis coli Colonic SSP/adenoma/TA Hepatic: NONE Musculoskeletal: degen joint disease Psychiatric: anxiety, depression Endocrine: NONE Blood Disorders: NONE Cancer(s): NONE DOG SITTER/Reproductive: NONE History of MRSA: Yes History of VRE: No History of CDIFF: No Isolation History: Contact Tetanus Vaccine: 11/23/13 Surgical History Surgical History: , breast reduction 2009- right knee surgery, status post recent Granger's Family History Relations & Conditions If Any: Relation not specified for: Family history unobtainable Psychosocial History Where Do You Live? Home Who Do You Live With? sister, Maude Last ([phone]) Services at Home: None Primary Language: Maltese Smoking Status: Former Smoker ETOH Use: denies use Illicit Drug Use: denies illicit drug use Living Will? no Power of Commercial Pilot/HCP? no Functional Ability ADLs Unknown: dressing, eating, toileting, bathing. Ambulation: unknown IADLs Unknown: shopping, housework, finances, food prep, telephone, transportation, medication admin. Review of Systems Review of Systems Cardiovascular: Denies: chest pain. GI: Reports: diarrhea. Denies: abdominal pain, nausea, vomiting. Genitourinary: Reports: no symptoms. All Other Systems: Reviewed and Negative Exam & Diagnostic Data Last 24 Hrs of Vital Signs/I&O Vital Signs Date Time Temp Pulse Resp B/P B/P Pulse O2 O2 Flow FiO2 Mean Ox Delivery Rate 10/31 1459 98.3 75 18 102/60 94 Nasal 4.0L Cannula 10/31 1143 94 Nasal 3.0L Cannula 10/31 0740 98.5 63 20 114/68 95 10/31 0000 Nasal 5.0L Cannula 10/30 2249 98.9 73 18 108/52 93 Nasal 5.0L Cannula 10/30 1850 97 Nasal 5.0L Cannula Intake & Output 10/31 1600 10/31 0800 10/31 0000 Intake Total 450 Output Total 900 Balance -900 450 Intake, Oral 450 Output, Stool 300 Output, Urine 600 Physical Exam Other Physical Findings: Afebrile. She is awake and alert in no acute distress. Skin reveals erythematous patches both lower extremities. HEENT negative. Neck is supple with no adenopathy. Lungs decreased breath sounds at the right base. Heart regular rhythm with no murmur. Abdomen is soft, nontender with positive bowel sounds; colostomy with liquid stool. Back no CVA tenderness. Extremities bilateral lower extremity edema, right greater than left, with mild erythema, without tenderness, over both lower extremities, no cyanosis or clubbing. Neuro is without focality. Last 24 Hours of Lab Results: Laboratory Tests 10/31 10/31 1430 0825 Chemistry Sodium (137 - 145 mmol/L) 140 Potassium (3.5 - 5.1 mmol/L) 4.1 Chloride (98 - 107 mmol/L) 103 Carbon Dioxide (22 - 30 mmol/L) 27 Anion Gap (5 - 16) 9 BUN (7 - 17 mg/dL) 13 Creatinine (0.5 - 1.0 mg/dL) 0.5 Estimated GFR (>60 ml/min) > 60 BUN/Creatinine Ratio (7 - 25 %) 26.0 H Hematology CBC w Diff NO MAN DIFF REQ WBC (4.8 - 10.8 /CUMM) 9.5 RBC (4.20 - 5.40 /CUMM) 3.49 L Hgb (12.0 - 16.0 G/DL) 10.8 L Hct (37 - 47 %) 33.1 L MCV (81.0 - 99.0 FL) 94.8 MCH (27.0 - 31.0 PG) 30.9 RDW (11.5 - 14.5 %) 17.5 H Plt Count (130 - 400 /CUMM) 521 H MPV (7.4 - 10.4 FL) 7.6 Gran % (42.2 - 75.2 %) 76.5 H Lymphocytes % (20.5 - 51.1 %) 12.6 L Monocytes % (1.7 - 9.3 %) 8.6 Eosinophils % (0 - 5 %) 2.1 Basophils % (0.0 - 2.0 %) 0.2 Absolute Granulocytes (1.4 - 6.5 /CUMM) 7.3 H Absolute Lymphocytes (1.2 - 3.4 /CUMM) 1.2 Absolute Monocytes (0.10 - 0.60 /CUMM) 0.8 H Absolute Eosinophils (0.0 - 0.7 /CUMM) 0.2 Absolute Basophils (0.0 - 0.2 /CUMM) 0 PUBS MCHC (33.0 - 37.0 G/DL) 32.6 L Urines Urine Color (YEL,AMB,STR) YEL Urine Clarity (CLEAR) HAZY H Urine pH (5.0 - 8.0) 6.0 Ur Specific [place] (1.001 - 1.035) 1.015 Urine Protein (NEG,<30 MG/DL) NEG Urine Ketones (NEG) NEG Urine Nitrite (NEG) NEG Urine Bilirubin (NEG) NEG Urine Urobilinogen (0.1 - 1.0 EU/dl) 0.2 Ur Leukocyte Esterase (NEG) MOD H Ur Microscopic SEDIMENT EXAMINED Urine RBC (0 - 5 /HPF) RARE Urine WBC (0 - 2 /HPF) 15-25 H Ur Epithelial Cells (NONE,FEW) MOD H Urine Bacteria (NEG/NONE) FEW H Urine Hemoglobin (NEG) NEG Urine Glucose (N MG/DL) NEG Last 24 Hours of [place] Results: Blood cultures 2 October 29 negative Urine culture October 29 negative Sputum culture October 30 mixed elida after one-day Stool C. difficile October 31 negative Diagnostic Data Recent Imaging Findings: Chest x-ray October 29 revealed a significant decrease in the bilateral pleural effusions and significant improvement in the bibasilar airspace disease. Left leg Doppler October 29 negative. CTA of the chest October 29 revealed a left lower lobe pneumonia with a small infiltrate or atelectasis in the right lower lobe, inferior segment of the lingula and right middle lobe. CT of the abdomen and pelvis October 29 revealed bibasilar consolidation with bilateral pleural effusions and a small amount of fluid around the liver, diminished from the previous exam. Assessment/Plan Assessment/Plan Impression: This is a 61-year-old woman status post a recent prolonged hospitalization following a perforated sigmoid diverticulitis, for which she required a Granger' s procedure, with her hospital course complicated by a right upper quadrant purulent fluid collection, requiring drainage for nearly 3 weeks, bilateral pleural effusions, both of which were tapped, revealing exudates, and C. difficile, treated with a 10 day course of Flagyl, readmitted on October 29, nearly one month after discharge, with the acute onset of shortness of breath, fevers and chills, found to be febrile with a leukocytosis and with a CT of the chest revealing a left lower lobe density suggestive of pneumonia, now improved after empiric treatment with Vancomycin and Meropenem. The source of her fever and leukocytosis is not clear. The CT scan does suggest a left lower lobe pneumonia and she did report shortness of breath prior to admission, though she has little in terms of respiratory symptoms at this time. Her CT scan of the abdomen and pelvis does not suggest an intra-abdominal process and her urine culture is negative. Her recent complaints of bilateral lower extremity pruritus and discomfort raise concern for cellulitis, though she had no complaints in this area prior to admission. She can be continued on the current antibiotics pending the final sputum culture, but, based on these results, her antibiotics will likely be able to be adjusted. Suggestion: 1. Elevate both lower extremities 2. Symptomatic treatment for her lower extremity pruritus 3. Consider Doppler of the right lower extremity 4. Follow-up final sputum culture 5. Continue Vancomycin and Meropenem pending above Consult Acknowledgment - Thank you for your consult request.
[2016-10-31 23:02] VITALS: BP 114/58
--- NOTE | 2016-11-01 05:23 | NUR ---
LATE ENTRY PATIENT IRRITABLE, DROWSY BUT AROUSABLE. PATIENT REFUSED ALL HIS 2200 SCHEDULED MEDS. THE MST AND I WERE ABLE TO TAKE HIS BS AND VS EXCEPT BP. MD RUTHANN OSULLIVAN WAS MADE AWARE. MD BEAVERS CAME G TO SEE THE PATIENT AND CONVINCED THE PATIENT TO TAKE RIFAMPIN.
--- NOTE | 2016-11-01 05:34 | NUR ---
PATIENT ALERT AND DI-ORIENTED. PATIENT CALM AND COORERATIVE AT THIS TIME. C/O PAIN IN HIS TESTICLES. PATIENT'S TESTICLES WERE MODERATELY SWOLLEN AND REDISH COLOR. MD RUTHANN OSULLIVAN WAS MADE AWARE AND CAME TO EXAMIN THE PATIENT. NO FURTHER ORDERS AT THIS TIME. PATIENT C/O PAIN TO LEFT KNEE. TYLENOL 650 MG WAS ADMINISTERED. PATIENT RESTING COMFORTABLY IN BED. WILL CONTINUE TO MONITOR
[2016-11-01 06:59] VITALS: BP 110/60
--- NOTE | 2016-11-01 07:04 | PN- Housestaff ---
Subjective Follow-up For: Pneumonia possible Sepsis Subjective: I have seen and examined the patient. The patient was sleeping comfortably in the bed. She was easily arousable. She was on 2R nasal cannula oxygen. There were no overnight acute events. She had one episode of urinary incontinence. There is no complaint of increase in frequency dysuria burning urination. She was very embarrassed to talk about it. She wanted to know what we are treating her for, explained to her that right now we are treating her for pneumonia and ruling out other causes of infection. She complained of achiness and itching in her lower extremities left more than right side. They were no overnight acute events she denies any fevers chest pain shortness of breath or palpitations. Review of Systems Constitutional: Denies: chills, diaphoresis, fever. Cardiovascular: Denies: chest pain, orthopena. Respiratory: Denies: hemoptysis, short of breath. Gastrointestinal: Reports: no symptoms. Genitourinary: Reports: no symptoms. Objective Last 24 Hrs of Vital Signs/I&O Vital Signs Date Time Temp Pulse Resp B/P B/P Pulse O2 O2 Flow FiO2 Mean Ox Delivery Rate 11/01 0822 92 Nasal 1.5L Cannula 11/01 0659 98.1 80 20 110/60 93 Nasal 1.0L Cannula 11/01 0000 Nasal 1.5L Cannula 10/31 2302 98.3 77 20 114/58 91 10/31 1900 92 Nasal 1.5L Cannula 10/31 1459 98.3 75 18 102/60 94 Nasal 4.0L Cannula 10/31 1143 94 Nasal 3.0L Cannula Intake & Output 11/01 1600 11/01 0800 11/01 0000 Intake Total 300 Output Total Balance 300 Intake, Oral 300 Physical Exam General Appearance: Alert, Oriented X3, Cooperative, No Acute Distress Skin: multiple brusies on arms Cardiovascular: Normal S1, Normal S2 Lungs: few crepitations Abdomen: Normal Bowel Sounds, Soft, No Tenderness, colostomy bag is noted on left-sided abdomen with loose stool Neurological: Normal Speech Extremities: Extremities bilateral lower extremity edema, Left > right, with mild erythema, without tenderness Current Medications: Current Medications Sig/Ry Start time Last Medication Dose Route Stop Time Status Admin Acetaminophen 1,000 MG Q6P PRN 10/29 1630 AC IV Albuterol Sulfate 3 ML BID 10/29 2200 AC 11/01 INH 0807 Albuterol Sulfate 3 ML Q8P PRN 10/29 1630 AC INH Albuterol Sulfate 2 PUF Q8P PRN 10/29 1630 AC INH Budesonide/ 2 PUF BID 10/29 2200 AC 11/01 Formoterol Fumarate INH 0845 Clonazepam 0.5 MG BID PRN 10/29 1645 AC 11/01 PO 11/05 2159 0844 Diphenhydramine HCl 1 GISSEL 4 TIMES/DAY PRN 10/31 1900 AC 11/01 TOP 0845 Docusate Sodium 100 MG BID PRN 10/29 1645 AC PO Enoxaparin Sodium 40 MG DAILY 10/30 1000 AC 11/01 SC 0844 Gabapentin 300 MG TID 10/29 1626 AC 11/01 PO 0845 Ibuprofen 600 MG Q6P PRN 10/29 1630 AC 10/30 PO 0943 Magnesium Oxide 400 MG DAILY 10/30 1000 AC 11/01 PO 0845 Melatonin 9 MG QPM PRN 10/29 1645 AC 10/31 PO 2107 Meropenem 1 GM IQ8 10/29 1730 AC 11/01 IV 0844 Morphine Sulfate 2 MG Q4P PRN 10/29 1630 AC IV Omeprazole 40 MG DAILY AC PRN 10/29 1630 AC PO Polyethylene Glycol 17 GM DAILY PRN 10/29 1645 AC PO Sertraline HCl 200 MG DAILY 10/29 1628 AC 11/01 PO 0844 Trazodone HCl 200 MG QPM 10/29 2200 AC 10/31 PO 2104 Vancomycin HCl 1,000 MG 2000 10/31 1999 AC 10/31 Sodium Chloride 250 ML IV 2057 Last 24 Hrs of Lab/[place] Results Last 24 Hrs of Labs/Mics: Laboratory Tests 11/01/16 0802: Anion Gap 10, Estimated GFR > 60, BUN/Creatinine Ratio 18.3, CBC w Diff NO MAN DIFF REQ, RBC 3.70 L, MCV 95.1, MCH 31.3 H, RDW 17.7 H, MPV 7.3 L, Gran % 71.7, Lymphocytes % 15.3 L, Monocytes % 8.5, Eosinophils % 3.9, Basophils % 0.6 , Absolute Granulocytes 4.8, Absolute Lymphocytes 1.0 L, Absolute Monocytes 0.6 , Absolute Eosinophils 0.3, Absolute Basophils 0, PUBS MCHC 32.9 L 10/31/16 1430: Anion Gap 9, Estimated GFR > 60, BUN/Creatinine Ratio 26.0 H, CBC w Diff NO MAN DIFF REQ, RBC 3.49 L, MCV 94.8, MCH 30.9, RDW 17.5 H, MPV 7.6, Gran % 76.5 H, Lymphocytes % 12.6 L, Monocytes % 8.6, Eosinophils % 2.1, Basophils % 0.2, Absolute Granulocytes 7.3 H, Absolute Lymphocytes 1.2, Absolute Monocytes 0.8 H, Absolute Eosinophils 0.2, Absolute Basophils 0, PUBS MCHC 32.6 L Assessment/Plan Assessment: This is a 61 yo female with PMH of recent prolonged ICU stay for sigmoid perforation and abscess with colostomy.At that time she had been intubated, successfully extubated, and d/c on 2L NC. She presented with CC of fever, chills, SOB, cough and weakness of one day duration Doppler: negative for DVT --CT Chest: Left lower lobe pneumonia. Small infiltrate or atelectasis in the right lower lobe, inferior segment of the lingula and right middle lobe. Persistent fluid and abnormal soft tissue seen under the right hemidiaphragm adjacent to the right lobe of the liver. --CT of Abdomen and Pelvis w/o contrast impression: on 10/30 1. Bibasilar consolidation with bilateral pleural effusions. 2. Left-sided colostomy. Diverticulosis of colon but no acute change of bowel. 3. Small amount of fluid around the liver. Volume of fluid though is diminished since exam of 09/30/2016. PLAN: Hospital-acquired pneumonia the patient is currently on meropenem and vancomycin , she has previously grown pseudomonas intermittently resistant to Ceftaz. * CT scan done on 10/30 showed bibasilar consolidation with bilateral effusion * Continue meropenem and was and vancomycin * upper respiratory nostril culture-- NO METHICILLIN RESISTANT STAPH AUREUS ISOLATED; * Lower respiratory culture-- mixed elida Hypoxemic respiratory failure Pt came in with o2 sat of 86 was put on 2L NC oxygen. She is improving with decreasing oxygen requirements. * wean off oxygen * TRC/Nebs * supplement o2 with a goal Spo2 >88% as per pulmonology recommendations * Symbicort 2 puffs BID Bilateral lower extremity pruritus and pain- Cellulitis? Her recent complaints of bilateral lower extremity pruritus and discomfort raise concern for cellulitis, though she had no complaints in this area prior to admission. On examination her legs are edematous, pruritic, erythematous and warm * Doppler negative for DVT * elevate the legs * Monitor for signs of infection Possible sepsis patient came in with fever of 102, elevated wbc, tachycardia and desaturation there was concern of sepsis 2/2 PNA with initial lactic acid 3.2 and white count of 17.1 * The patient has been afebrile since 10/30 * Lactic acid white cell count and other parameters are within normal range * Blood cultures negative to date * UA showed hazy color moderate leukoesterase with 15-25 urine WBCs. At this point patient does not have any symptoms of UTI including dysuria burning and increased frequency. Urine culture is negative to date * Concerns for cellulits considering her erythematous, warm lower extremities * Patient is currently on meropenem and vancomycin. 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 Reported two episodes of loose stool in colostomy bag * C.diff toxin negative Problem List: 1. Status post Ho's procedure 2. Pneumonia of both lower lobes 3. Hypoxia Pain Ratin Pain Location: ? Pain Goal: Pain 4 or less Pain Plan: morphine, acetaminophin 100mg, motrin Tomorrow's Labs & Rationales: cbc bep DVT/Prophylaxis: pharmacological, lovenox Consulting Request: 1 Consulting Specialty: Infectious Disease Consulting Request: 2 Consulting Specialty: Pulmonary Disease
[2016-11-01 09:22] LABS: ABSOLUTE BASOPHIL COUNT 0 /CUMM (0.0-0.2); ABSOLUTE EOSINOPHIL COUNT 0.3 /CUMM (0.0-0.7); ABSOLUTE GRANULOCYTE CT 4.8 /CUMM (1.4-6.5); ABSOLUTE MONOCYTE COUNT 0.6 /CUMM (0.10-0.60); BASOPHIL % 0.6 % (0.0-2.0); EOSINOPHIL % 3.9 % (0-5); GRANULOCYTE % 71.7 % (42.2-75.2); HEMATOCRIT 35.2 % (37-47); MEAN CORPUSCULAR HGB 31.3 PG (27.0-31.0); MEAN CORPUSCULAR HGB CONC 32.9 G/DL (33.0-37.0); MEAN CORPUSCULAR VOLUME 95.1 FL (81.0-99.0); MEAN PLATELET VOLUME 7.3 FL (7.4-10.4); PLATELET COUNT 552 /CUMM (130-400); RBC DISTRIBUTION WIDTH 17.7 % (11.5-14.5); WHITE BLOOD CELL COUNT 6.7 /CUMM (4.8-10.8)
--- NOTE | 2016-11-01 09:51 | PN- Student ---
Subjective Subjective: Follow up for : pneumonia possible sepsis Subjective: : I have seen and examined this patient. patient was sitting up comfortably in bed on 1L 02 by ME. no acute distress. there were no acute over night events. patient stated one episode of urinary incontinence overnight, in which patient was very embarrassed, but denied dysuria, burning, malodorous odor or increased frequency. Patient is afebrile. At this morning's visit, patient denies chest pain, dyspnea, fever, chills, weakness, n/v, abdominal pain. Patient reports aching to bilateral lower extremities but patient states she can move her legs without pain and can get up and walk around without pain. patient also Reports that her stool in the colostomy bag is still loose and watery. patient denies anorexia and is eating and sleeping well. Allergies/Medications Allergies: Coded Allergies: azithromycin (Intermediate, NAUSEA AND VOMITING 08/26/16) Review of Systems Constitutional: Reports: no symptoms EENTM: Reports: no symptoms. Respiratory: Reports: no symptoms. Cardiovascular: Reports: no symptoms. GI: Reports: no symptoms. Genitourinary: Reports: no symptoms. Musculoskeletal: Reports: aching to bilateral lower extremities, left more than the right leg. Skin: Reports: no symptoms. Neurological/Psychological: Reports: no symptoms. Hematologic/Endocrine: Reports: no symptoms. Immunologic/Allergic: Reports: no symptoms. Objective Objective: Current Medications Sig/Ry Start time Last Medication Dose Route Stop Time Status Admin Acetaminophen 1,000 MG Q6P PRN 10/29 1630 AC IV Albuterol Sulfate 3 ML BID 10/29 2200 AC 11/01 INH 0807 Albuterol Sulfate 3 ML Q8P PRN 10/29 1630 AC INH Albuterol Sulfate 2 PUF Q8P PRN 10/29 1630 AC INH Budesonide/ 2 PUF BID 10/29 2200 AC 11/01 Formoterol Fumarate INH 0845 Clonazepam 0.5 MG BID PRN 10/29 1645 AC 11/01 PO 11/05 2159 0844 Diphenhydramine HCl 1 GISSEL 4 TIMES/DAY PRN 10/31 1900 AC 11/01 TOP 0845 Docusate Sodium 100 MG BID PRN 10/29 1645 AC PO Enoxaparin Sodium 40 MG DAILY 10/30 1000 AC 11/01 SC 0844 Gabapentin 300 MG TID 10/29 1626 AC 11/01 PO 0845 Ibuprofen 600 MG Q6P PRN 10/29 1630 AC 10/30 PO 0943 Magnesium Oxide 400 MG DAILY 10/30 1000 AC 11/01 PO 0845 Melatonin 9 MG QPM PRN 10/29 1645 AC 10/31 PO 210 Meropenem 1 GM IQ8 10/29 1730 AC 11/01 IV 0844 Morphine Sulfate 2 MG Q4P PRN 10/29 1630 AC 11/01 IV 0927 Omeprazole 40 MG DAILY AC PRN 10/29 1630 AC PO Polyethylene Glycol 17 GM DAILY PRN 10/29 1645 AC PO Sertraline HCl 200 MG DAILY 10/29 1628 AC 11/01 PO 0844 Trazodone HCl 200 MG QPM 10/29 2200 AC 10/31 PO 210 Vancomycin HCl 1,000 MG 2000 10/31 1999 AC 10/31 Sodium Chloride 250 ML IV 205 Vital Signs Date Time Temp Pulse Resp B/P B/P Pulse O2 O2 Flow FiO2 Mean Ox Delivery Rate 11/01 0822 92 Nasal 1.5L Cannula 11/01 0659 98.1 80 20 110/60 93 Nasal 1.0L Cannula 11/01 0000 Nasal 1.5L Cannula 10/31 2302 98.3 77 20 114/58 91 10/31 1900 92 Nasal 1.5L Cannula 10/31 1459 98.3 75 18 102/60 94 Nasal 4.0L Cannula 10/31 1143 94 Nasal 3.0L Cannula Intake & Output 11/01 1600 11/01 0800 11/01 0000 Intake Total 300 Output Total Balance 300 Intake, Oral 300 physical exam: General Appearance: alert and oriented x3, cooperative, mood is pleasant and affect appropriate. skin: warm, smooth, and dry. capillary refill <2 seconds. Head: normal cephalic, autramatic. Eyes: bilaterallY PERRL, EOMI. Neck: supple. Cardioascular: regular rate and rhythm. no lifts or heaves. PMI at 5th ICS MCL. normal s1 and s2. no murmurs, rubs, or gallops heard. Lungs: diminished lung sounds in bilateral lower lung rosenbaum. upper lung rosenbaum are symmetrical and clear to auscultation. no adventicious sounds, no wheezes. Abdomen: soft, non distended. non tender. no hepatosplenomegaly. no CVA tenderness. colostomy bag in place over the left side of abdomen. 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 normal speech. alert and orieted x3. Extremities: mild erythema and edema to bilateral lower extremities that is warm to touch but non tender. Laboratory Tests 11/01 10/31 0802 1430 Chemistry Sodium (137 - 145 mmol/L) 142 140 Potassium (3.5 - 5.1 mmol/L) 4.7 4.1 Chloride (98 - 107 mmol/L) 105 103 Carbon Dioxide (22 - 30 mmol/L) 27 27 Anion Gap (5 - 16) 10 9 BUN (7 - 17 mg/dL) 11 13 Creatinine (0.5 - 1.0 mg/dL) 0.6 0.5 Estimated GFR (>60 ml/min) > 60 > 60 BUN/Creatinine Ratio (7 - 25 %) 18.3 26.0 H Hematology CBC w Diff Pending NO MAN DIFF REQ WBC (4.8 - 10.8 /CUMM) Pending 9.5 RBC (4.20 - 5.40 /CUMM) Pending 3.49 L Hgb (12.0 - 16.0 G/DL) Pending 10.8 L Hct (37 - 47 %) Pending 33.1 L MCV (81.0 - 99.0 FL) Pending 94.8 MCH (27.0 - 31.0 PG) Pending 30.9 RDW (11.5 - 14.5 %) Pending 17.5 H Plt Count (130 - 400 /CUMM) Pending 521 H MPV (7.4 - 10.4 FL) Pending 7.6 Gran % (42.2 - 75.2 %) 76.5 H Lymphocytes % (20.5 - 51.1 %) 12.6 L Monocytes % (1.7 - 9.3 %) 8.6 Eosinophils % (0 - 5 %) 2.1 Basophils % (0.0 - 2.0 %) 0.2 Absolute Granulocytes (1.4 - 6.5 /CUMM) 7.3 H Absolute Lymphocytes (1.2 - 3.4 /CUMM) 1.2 Absolute Monocytes (0.10 - 0.60 /CUMM) 0.8 H Absolute Eosinophils (0.0 - 0.7 /CUMM) 0.2 Absolute Basophils (0.0 - 0.2 /CUMM) 0 PUBS MCHC (33.0 - 37.0 G/DL) Pending 32.6 L Results Results: Laboratory Tests 11/01/16 0802: Anion Gap 10, Estimated GFR > 60, BUN/Creatinine Ratio 18.3, CBC w Diff Pending, WBC Pending, RBC Pending, Hgb Pending, Hct Pending, MCV Pending, MCH Pending, RDW Pending, Plt Count Pending, MPV Pending, PUBS MCHC Pending 10/31/16 1430: Anion Gap 9, Estimated GFR > 60, BUN/Creatinine Ratio 26.0 H, CBC w Diff NO MAN DIFF REQ, RBC 3.49 L, MCV 94.8, MCH 30.9, RDW 17.5 H, MPV 7.6, Gran % 76.5 H, Lymphocytes % 12.6 L, Monocytes % 8.6, Eosinophils % 2.1, Basophils % 0.2, Absolute Granulocytes 7.3 H, Absolute Lymphocytes 1.2, Absolute Monocytes 0.8 H, Absolute Eosinophils 0.2, Absolute Basophils 0, PUBS MCHC 32.6 L 10/31/16 0825: Urine Color YEL, Urine Clarity HAZY H, Urine pH 6.0, Ur Specific [place] 1.015, Urine Protein NEG, Urine Ketones NEG, Urine Nitrite NEG, Urine Bilirubin NEG, Urine Urobilinogen 0.2, Ur Leukocyte Esterase MOD H, Ur Microscopic SEDIMENT EXAMINED, Urine RBC RARE, Urine WBC 15-25 H, Ur Epithelial Cells MOD H, Urine Bacteria FEW H, Urine Hemoglobin NEG, Urine Glucose NEG 10/30/16 0730: Anion Gap 7, Estimated GFR > 60, BUN/Creatinine Ratio 26.7 H, Lactic Acid 0.7, CBC w Diff NO MAN DIFF REQ, RBC 3.22 L, MCV 94.9, MCH 31.4 H, RDW 17.4 H, MPV 6.9 L, Gran % 80.4 H, Lymphocytes % 10.5 L, Monocytes % 8.0, Eosinophils % 0.9, Basophils % 0.2, Absolute Granulocytes 10.0 H, Absolute Lymphocytes 1.3, Absolute Monocytes 1.0 H, Absolute Eosinophils 0.1, Absolute Basophils 0, PUBS MCHC 33.1 10/29/16 1634: Lactic Acid Cancelled 10/29/16 1618: Lactic Acid 1.4 10/29/16 1220: Anion Gap 14, Estimated GFR > 60, BUN/Creatinine Ratio 26.3 H, Glucose 81, Lactic Acid 3.2 H, Calcium 9.4, Total Bilirubin 0.3, AST 26, ALT 30, Alkaline Phosphatase 80, Troponin I < 0.01, C-Reactive Prot, Quant 1.2 H, Pro-B- Natriuretic Pept 491 H, Total Protein 7.0, Albumin 3.6, Globulin 3.4, Albumin/ Globulin Ratio 1.1, D-Dimer High Sensitivty 753 H, CBC w Diff MAN DIFF ORDERED, RBC 3.44 L, MCV 95.3, MCH 30.9, RDW 17.4 H, MPV 7.0 L, Gran % 85.0 H, Lymphocytes % 10.7 L, Monocytes % 3.8, Eosinophils % 0.3, Basophils % 0.2, Absolute Granulocytes 14.5 H, Segmented Neutrophils 77 H, Band Neutrophils 5, Absolute Lymphocytes 1.8, Lymphocytes 10 L, Monocytes 7, Absolute Monocytes 0.7 H, Absolute Eosinophils 0, Basophils 1, Absolute Basophils 0, Platelet Estimate VERIFIED BY SMEAR, Anisocytosis 1+, PUBS MCHC 32.5 L, Urine Color YEL, Urine Clarity CLEAR, Urine pH 6.0, Ur Specific [place] 1.010, Urine Protein NEG, Urine Ketones NEG, Urine Nitrite NEG, Urine Bilirubin NEG, Urine Urobilinogen 0.2, Ur Leukocyte Esterase MOD H, Ur Microscopic SEDIMENT EXAMINED, Urine RBC 1-3, Urine WBC 15-25 H, Ur Epithelial Cells RARE, Urine Bacteria MOD H, Urine Mucus RARE, Micro UA Comment MORE INFO: H, Urine Hemoglobin NEG, Urine Glucose NEG Microbiology 10/31 0700 STOOL: Clostridium difficile Toxin A & B - COMP 10/30 1600 UPPER RESP: Surveillance Culture - COMP 10/30 929 LOWER RESP: Respiratory Culture - RES 10/30 929 LOWER RESP: Gram Stain - RES 10/30 2319 LOWER RESP: Respiratory Culture - CAN Cancelled: Cancelled via OE: WRONG DAY 10/30 2319 LOWER RESP: Gram Stain - CAN Cancelled: Cancelled via OE: WRONG DAY 10/29 1515 BLOOD: Blood Culture - RES 10/29 1240 URINE ROUT: Urine Culture - COMP 10/29 1235 BLOOD: Blood Culture - RES Assessment/Plan Assessment: Assessment: patient is a 61 year old female with past medical hx of recent prolonged ICU stay for 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 patient also has hx of COPD, gastritis, anxity,depression, DJD, c. diff infection, and hx of sputum cultures with pseudomonas resistant to ceftazidime. Due to recent hospital stay, patient is high risk for hospital aquired pneumonia. patient had presented to ED with complaints of fever, chills, dyspnea, cough, and weakness of one day. patient also complained of left leg pain and edema. Doppler was done and unremarkable. patient was tachycardic in ED and desatted at 86% with elevated WBCs so patient was admitted to general medicine for further workup and monitoring concerning of possible sepsis and pneumonia. CXR: Significant interval decrease in size of previously identified bilateral pleural effusions and significant interval improvement of bibasilar airspace disease Doppler: negative for DVT. CTA IMPRESSION: negative for PE. Left lower lobe pneumonia. Small infiltrate or atelectasis in the right lower lobe, inferior segment of the lingula and right middle lobe. Persistent fluid and abnormal soft tissue seen under the right hemidiaphragm adjacent to the right lobe of the liver. Question new increasing low attenuation in the periportal region and upper abdominal retroperitoneum. This could be better evaluated with CT of the abdomen if clinically indicated CT of Abdomen and Pelvis w/o contrast impression: 1. Bibasilar consolidation with bilateral pleural effusions. 2. Left-sided colostomy. Diverticulosis of colon but no acute change of bowel. 3. Small amount of fluid around the liver. Volume of fluid though is diminished since exam of 09/30/2016. Plan: Plan: 1. hospital aquired pneumonia with possibility of sepsis - pt has hx of growing pseudomonas that was resistant to ceftaz. continue IV vanco/IV Meropenem - WBC count and lactic acid has stabilized today. - upper respiratory nostril culture = NEGATIVE FOR METHICILLIN RESISTANT STAPH AUREUS -lower respiratory culture shows mixed elida and yeast. - stool sample was negative for c. diff - Urine culture - negative up to this point. -U/A- showed hazy color, moderate leukocyte esterase, 15-25 urine WBC with moderate epithelial cells and few urine bacteria. negative for nitrite, ketones, protein, and bilirubin. so no sign of UTI at this point. 2. Bilateral lower extremity pruritus and pain: patient started complaining of bilateral leg pruritis and pain yesterday per Dr. Tong's note . this morning patient complained of aching in bilateral lower extremities, but no pruritis. patient able to walk around normally without pain. bilateral lower leg edema with mild erythema noted but non tender to palpation. this raises concern for possible early cellulitis/ drug induced reaction? and need to rule out DVT - Doppler ordered and done: negative for DVT - symptomatic tx and elevation of legs and continue to monitor area of erythema for signs of infection/spreading. 3. Diarrhea: patient has complained twice since admitted about loose stool in colostomy bag. patient has hx of prolonged ICU stay for 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 - c diff negative 4. Hypoxemic respiratory failure: when patient was admitted, she desatted to 86 % and was placed on O2 by ME. patient is improving today and down to 1.5L 02 by ME. continue to ween off o2 as tolerated. - supplement o2 with a goal Spo2 >88% as per pulmonology recommendation - Symbicort 2 puffs BID - TRC and nebulizer
--- NOTE | 2016-11-01 10:59 | PN- Pulmonary ---
Subjective HPI/Critical Care Issues: pts seen and examined on way to ultrasound reduced fio2 requirements Objective Current Medications: Current Medications Sig/Ry Start time Last Medication Dose Route Stop Time Status Admin Acetaminophen 1,000 MG Q6P PRN 10/29 1630 AC IV Albuterol Sulfate 3 ML BID 10/29 2200 AC 11/01 INH 0807 Albuterol Sulfate 3 ML Q8P PRN 10/29 1630 AC INH Albuterol Sulfate 2 PUF Q8P PRN 10/29 1630 AC INH Budesonide/ 2 PUF BID 10/29 220 AC 11/01 Formoterol Fumarate INH 0845 Clonazepam 0.5 MG BID PRN 10/29 1645 AC 11/01 PO 11/05 2159 0844 Diphenhydramine HCl 1 GISSEL 4 TIMES/DAY PRN 10/31 1900 AC 11/01 TOP 0845 Docusate Sodium 100 MG BID PRN 10/29 1645 AC PO Enoxaparin Sodium 40 MG DAILY 10/30 1000 AC 11/01 SC 0844 Gabapentin 300 MG TID 10/29 1626 AC 11/01 PO 0845 Ibuprofen 600 MG Q6P PRN 10/29 1630 AC 10/30 PO 0943 Magnesium Oxide 400 MG DAILY 10/30 1000 AC 11/01 PO 0845 Melatonin 9 MG QPM PRN 10/29 1645 AC 10/31 PO 2107 Meropenem 1 GM IQ8 10/29 1730 AC 11/01 IV 0844 Morphine Sulfate 2 MG Q4P PRN 10/29 1630 AC 11/01 IV 0927 Omeprazole 40 MG DAILY AC PRN 10/29 1630 AC PO Polyethylene Glycol 17 GM DAILY PRN 10/29 1645 AC PO Sertraline HCl 200 MG DAILY 10/29 1628 AC 11/01 PO 0844 Trazodone HCl 200 MG QPM 10/29 2200 AC 10/31 PO 2104 Vancomycin HCl 1,000 MG 2000 10/31 1999 AC 10/31 Sodium Chloride 250 ML IV 2057 Vital Signs & I&O Last 24 Hrs of Vitals and I&O: Vital Signs Date Time Temp Pulse Resp B/P B/P Pulse O2 O2 Flow FiO2 Mean Ox Delivery Rate 11/01 0822 92 Nasal 1.5L Cannula 11/01 0659 98.1 80 20 110/60 93 Nasal 1.0L Cannula 11/01 0000 Nasal 1.5L Cannula 10/31 2302 98.3 77 20 114/58 91 10/31 1900 92 Nasal 1.5L Cannula 10/31 1459 98.3 75 18 102/60 94 Nasal 4.0L Cannula 10/31 1143 94 Nasal 3.0L Cannula Intake & Output 11/01 1600 11/01 0800 11/01 0000 Intake Total 300 Output Total Balance 300 Intake, Oral 300 Results Last 24 Hrs of Lab Results: Laboratory Tests 11/01/16 0802: Anion Gap 10, Estimated GFR > 60, BUN/Creatinine Ratio 18.3, CBC w Diff NO MAN DIFF REQ, RBC 3.70 L, MCV 95.1, MCH 31.3 H, RDW 17.7 H, MPV 7.3 L, Gran % 71.7, Lymphocytes % 15.3 L, Monocytes % 8.5, Eosinophils % 3.9, Basophils % 0.6 , Absolute Granulocytes 4.8, Absolute Lymphocytes 1.0 L, Absolute Monocytes 0.6 , Absolute Eosinophils 0.3, Absolute Basophils 0, PUBS MCHC 32.9 L 10/31/16 1430: Anion Gap 9, Estimated GFR > 60, BUN/Creatinine Ratio 26.0 H, CBC w Diff NO MAN DIFF REQ, RBC 3.49 L, MCV 94.8, MCH 30.9, RDW 17.5 H, MPV 7.6, Gran % 76.5 H, Lymphocytes % 12.6 L, Monocytes % 8.6, Eosinophils % 2.1, Basophils % 0.2, Absolute Granulocytes 7.3 H, Absolute Lymphocytes 1.2, Absolute Monocytes 0.8 H, Absolute Eosinophils 0.2, Absolute Basophils 0, PUBS MCHC 32.6 L Impression/Plan Impression/Plan Impression/Plan: Impression 61 year old woman * Hypoxemic respiratory failure * Sepsis with LLL pneumonia, HCAP and hx of pseduomonas (resistant to ceftazadime) * 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 Plan -TRC/Nebs -supplement o2 with a goal spo2 >88% -reduce fio2 -f/u with surgery plan for reversal of colostomy -cont ID recommendation f/u DVT prophylaxis at all times
--- NOTE | 2016-11-01 11:07 | ULTRASOUND REPORT ---
EXAMINATION: US TRIPLEX LOWER EXTREMITY, RIGHT CLINICAL INFORMATION: New onset right lower extremity edema and erythema. COMPARISON: Ultrasound study of bilateral lower extremities 09/06/2016. TECHNIQUE: Color-flow triplex imaging with spectral analysis and compression Doppler were performed on the right lower extremity. FINDINGS: Respiratory variation, normal compression and augmented flow are noted throughout the right lower extremity. The visualized common femoral vein, superficial femoral vein, profunda femoral vein, popliteal vein and midcalf peroneal and posterior tibial venous segments show no evidence of deep venous thrombosis. No focal fluid collections are demonstrated. There is mild edema in the superficial soft tissues laterally. IMPRESSION: 1. Normal triplex scan without evidence of deep venous thrombosis involving the lower extremity. 2. There are no focal fluid collections.
--- NOTE | 2016-11-01 14:16 | PN- Att Addend ---
Attending Addendum Attending Brief Note Patient seen and examined. Plan of care discussed with the medical team and the patient. Available lab work and radiology test reports were reviewed. Patient does not report any fever chills nausea vomiting or abdominal pain. Assessment * Healthcare associated pneumonia * Sepsis * Status post pericolic abscess and sigmoid colectomy and colostomy * History of DJD * History of depression * History of anxiety * Prior history of C. difficile- recent C. difficile complete yesterday was negative Plan * Continue current antibiotics meropenem and vancomycin * ID consult note reviewed- we will need to determine the duration of antibiotic therapy. Exam: General: Patient awake alert oriented without any distress CVS: S1 plus S2 without any murmur or gallops Chest: Few scattered crepitation without any wheeze. There is no respiratory distress. 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: Awake alert oriented without any focal neuro deficit and follows command appropriately Extremities: No edema; no clubbing or cyanosis noted Laboratory Tests 11/01/16 0802: Anion Gap 10, Estimated GFR > 60, BUN/Creatinine Ratio 18.3, CBC w Diff NO MAN DIFF REQ, RBC 3.70 L, MCV 95.1, MCH 31.3 H, RDW 17.7 H, MPV 7.3 L, Gran % 71.7, Lymphocytes % 15.3 L, Monocytes % 8.5, Eosinophils % 3.9, Basophils % 0.6 , Absolute Granulocytes 4.8, Absolute Lymphocytes 1.0 L, Absolute Monocytes 0.6 , Absolute Eosinophils 0.3, Absolute Basophils 0, PUBS MCHC 32.9 L 10/31/16 1430: Anion Gap 9, Estimated GFR > 60, BUN/Creatinine Ratio 26.0 H, CBC w Diff NO MAN DIFF REQ, RBC 3.49 L, MCV 94.8, MCH 30.9, RDW 17.5 H, MPV 7.6, Gran % 76.5 H, Lymphocytes % 12.6 L, Monocytes % 8.6, Eosinophils % 2.1, Basophils % 0.2, Absolute Granulocytes 7.3 H, Absolute Lymphocytes 1.2, Absolute Monocytes 0.8 H, Absolute Eosinophils 0.2, Absolute Basophils 0, PUBS MCHC 32.6 L 10/31/16 0825: Urine Color YEL, Urine Clarity HAZY H, Urine pH 6.0, Ur Specific [place] 1.015, Urine Protein NEG, Urine Ketones NEG, Urine Nitrite NEG, Urine Bilirubin NEG, Urine Urobilinogen 0.2, Ur Leukocyte Esterase MOD H, Ur Microscopic SEDIMENT EXAMINED, Urine RBC RARE, Urine WBC 15-25 H, Ur Epithelial Cells MOD H, Urine Bacteria FEW H, Urine Hemoglobin NEG, Urine Glucose NEG 10/30/16 0730: Anion Gap 7, Estimated GFR > 60, BUN/Creatinine Ratio 26.7 H, Lactic Acid 0.7, CBC w Diff NO MAN DIFF REQ, RBC 3.22 L, MCV 94.9, MCH 31.4 H, RDW 17.4 H, MPV 6.9 L, Gran % 80.4 H, Lymphocytes % 10.5 L, Monocytes % 8.0, Eosinophils % 0.9, Basophils % 0.2, Absolute Granulocytes 10.0 H, Absolute Lymphocytes 1.3, Absolute Monocytes 1.0 H, Absolute Eosinophils 0.1, Absolute Basophils 0, PUBS MCHC 33.1 10/29/16 1634: Lactic Acid Cancelled 10/29/16 1618: Lactic Acid 1.4 Microbiology 10/31 0700 STOOL: Clostridium difficile Toxin A & B - COMP 10/30 1600 UPPER RESP: Surveillance Culture - COMP 10/30 929 LOWER RESP: Respiratory Culture - COMP YEAST 10/30 929 LOWER RESP: Gram Stain - COMP 10/29 232 LOWER RESP: Respiratory Culture - CAN Cancelled: Cancelled via OE: WRONG DAY 10/30 2319 LOWER RESP: Gram Stain - CAN Cancelled: Cancelled via OE: WRONG DAY 10/29 1515 BLOOD: Blood Culture - RES Vital Signs Date Time Temp Pulse Resp B/P B/P Pulse O2 O2 Flow FiO2 Mean Ox Delivery Rate 11/01 0822 92 Nasal 1.5L Cannula 11/01 0659 98.1 80 20 110/60 93 Nasal 1.0L Cannula 11/01 0000 Nasal 1.5L Cannula 10/31 2302 98.3 77 20 114/58 91 10/31 1900 92 Nasal 1.5L Cannula 10/31 1459 98.3 75 18 102/60 94 Nasal 4.0L Cannula Venous Doppler study 1. Normal triplex scan without evidence of deep venous thrombosis involving the lower extremity. 2. There are no focal fluid collections.
[2016-11-01 14:42] VITALS: BP 106/60
--- NOTE | 2016-11-01 14:50 | PN- Infect Dx ---
Subjective Subjective: Afebrile. She still notes pruritus over the anterior tibial aspect of both lower extremities Objective Last 24 Hrs of Vital Signs/I&O Vital Signs Date Time Temp Pulse Resp B/P B/P Pulse O2 O2 Flow FiO2 Mean Ox Delivery Rate 11/01 1442 98.3 75 20 106/60 93 Room Air 11/01 0822 92 Nasal 1.5L Cannula 11/01 0659 98.1 80 20 110/60 93 Nasal 1.0L Cannula 11/01 0000 Nasal 1.5L Cannula 10/31 2302 98.3 77 20 114/58 91 10/31 1900 92 Nasal 1.5L Cannula 10/31 1459 98.3 75 18 102/60 94 Nasal 4.0L Cannula Intake & Output 11/01 1600 11/01 0800 11/01 0000 Intake Total 300 Output Total Balance 300 Intake, Oral 300 Physical Exam Other Physical Findings: She appears comfortable in no acute distress Lungs basilar crackles Heart regular rhythm with no murmur Abdomen is soft, nontender with positive bowel sounds Extremities patchy erythema over the anterior tibial aspect of both lower extremities Results Last 24 Hours of Lab Results: Laboratory Tests 11/01 0802 Chemistry Sodium (137 - 145 mmol/L) 142 Potassium (3.5 - 5.1 mmol/L) 4.7 Chloride (98 - 107 mmol/L) 105 Carbon Dioxide (22 - 30 mmol/L) 27 Anion Gap (5 - 16) 10 BUN (7 - 17 mg/dL) 11 Creatinine (0.5 - 1.0 mg/dL) 0.6 Estimated GFR (>60 ml/min) > 60 BUN/Creatinine Ratio (7 - 25 %) 18.3 Hematology CBC w Diff NO MAN DIFF REQ WBC (4.8 - 10.8 /CUMM) 6.7 RBC (4.20 - 5.40 /CUMM) 3.70 L Hgb (12.0 - 16.0 G/DL) 11.6 L Hct (37 - 47 %) 35.2 L MCV (81.0 - 99.0 FL) 95.1 MCH (27.0 - 31.0 PG) 31.3 H RDW (11.5 - 14.5 %) 17.7 H Plt Count (130 - 400 /CUMM) 552 H MPV (7.4 - 10.4 FL) 7.3 L Gran % (42.2 - 75.2 %) 71.7 Lymphocytes % (20.5 - 51.1 %) 15.3 L Monocytes % (1.7 - 9.3 %) 8.5 Eosinophils % (0 - 5 %) 3.9 Basophils % (0.0 - 2.0 %) 0.6 Absolute Granulocytes (1.4 - 6.5 /CUMM) 4.8 Absolute Lymphocytes (1.2 - 3.4 /CUMM) 1.0 L Absolute Monocytes (0.10 - 0.60 /CUMM) 0.6 Absolute Eosinophils (0.0 - 0.7 /CUMM) 0.3 Absolute Basophils (0.0 - 0.2 /CUMM) 0 PUBS MCHC (33.0 - 37.0 G/DL) 32.9 L Last 24 Hours of [place] Results: Sputum culture October 30 reveals a light growth of yeast with mixed elida Blood cultures 2 October 29 negative Recent Imaging Studies: Doppler of the right lower extremity October 31 negative Assessment/Plan Impression: Stable on Vancomycin and Meropenem Day 3 of treatment for possible left lower lobe pneumonia/sepsis with temperatures and white blood cell count now normal. Her sputum culture only grew yeast and mixed elida and blood cultures remain negative; therefore her antibiotics can be narrowed. The etiology of her pruritic lower extremity rash is unclear. A drug-induced process is possible but it would be unusual for this to cause such a localized process. Suggestion: 1. Symptomatic treatment of her lower extremity pruritus 2. Discontinue Vancomycin and Meropenem 3. Begin Augmentin 875 mg po every 12 hours
[2016-11-01 22:29] VITALS: BP 90/50
[2016-11-02 06:20] VITALS: BP 132/62
--- NOTE | 2016-11-02 07:45 | Discharge Summary ---
Visit Information Visit Dates Admission Date: 10/29/16 Discharge Date: 11/03/2016 Hospital Course Course Attending Physician: YOLANDA BAILEY,EULALIA Primary Care Physician: ROVERTO MONTENEGRO MD Consulting Request: 1 Consulting Specialty: Pulmonary Disease Consulting Request: 2 Consulting Specialty: Infectious Disease Hospital Course: This is a 61 yo female with PMH of recent prolonged ICU stay for sigmoid perforation and abscess with colostomy.At that time she had been intubated, successfully extubated, and d/c on 2L NC. She presented with CC of fever, chills, SOB, cough and weakness of one day duration ED WORK UP SHOWS: Vitals: 102.5, 112, 20, 113/71 Pulse ox initially 86 on room air cbc: 17.1, 10.7/32.8, 543 BEP: BUN 21 and Cr .8, Lacticc 3.2 Negative trops, LFTs, BNP 491, CRP 1. 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 * CT scan done on 10/30 showed bibasilar consolidation with bilateral effusion * upper respiratory nostril culture-- NO METHICILLIN RESISTANT STAPH AUREUS ISOLATED; * Lower respiratory culture-- mixed elida * Continue po augment 500 mg BID Hypoxemic respiratory failure Pt came in with o2 sat of 86 was put on 2L NC oxygen. She was weaned off oxygen * Continue Symbicort 2 puffs BID Bilateral lower extremity pruritus and pain--improving Her recent complaints of bilateral lower extremity pruritus and discomfort raises concern for cellulitis, though she had no complaints in this area prior to admission. On examination her legs are edematous, pruritic, erythematous and warm. There is no fungal infection of toes. She had a pedicure done on 10/28 * Doppler negative for DVT * Elevate the legs * Symptomatic treatment for pruritis Bendryl cream * Monitor for signs of infection * Follow up with PCP Possible sepsis Patient came in with fever of 102, elevated wbc, tachycardia and desaturation there was concern of sepsis 2/2 PNA with initial lactic acid 3.2 and white count of 17.1 * The patient has been afebrile since 10/30 * Lactic acid white cell count and other parameters are within normal range * Blood cultures negative to date * UA showed hazy color moderate leukoesterase with 15-25 urine WBCs. At this point patient does not have any symptoms of UTI including dysuria burning and increased frequency. Urine culture is negative to date * Concerns for cellulits considering her erythematous, warm lower extremities * Patient is being discharged on augment 500mg BID PO Diarrhea--- reolved Patient is status post pericolic abscess and sigmoid colectomy and colostomy since august 2016. Reported two episodes of loose stool in colostomy bag * C.diff toxin negative Chest tightness and heartburn Pt complained of chest tightness and heartburn on 11/02. EKG showed no acute changes and trops were negative. likely secondary to antibiotics * Continue Prilosec Allergies: Coded Allergies: azithromycin (Intermediate, NAUSEA AND VOMITING 08/26/16) Pertinent Lab Results: --CT Chest:Left lower lobe pneumonia. Small infiltrate or atelectasis in the right lower lobe, inferior segment of the lingula and right middle lobe. Persistent fluid and abnormal soft tissue seen under the right hemidiaphragm adjacent to the right lobe of the liver. Question new increasing low attenuation in the periportal region and upper abdominal retroperitoneum. This could be better evaluated --CT of Abdomen and Pelvis w/o contrast impression: on 10/30 1. Bibasilar consolidation with bilateral pleural effusions. 2. Left-sided colostomy. Diverticulosis of colon but no acute change of bowel. 3. Small amount of fluid around the liver. Volume of fluid though isdiminished since exam of 09/30/2016. Disposition Summary Disposition Principal Diagnosis: Pnemonia Hypoxic resp failure Additional Diagnosis: Bilateral lower extremity pruritus and pain Discharge Disposition: home health services Discharge Instructions General Discharge Information Code Status: Full Code Patient's Diet: Regular Patient's Activity: As tolerated Follow-Up Instructions/Appts: Please follow up with your pcp please follow up with Dr. hale for colostemy reversal Please finish your antibiotic course please follow up Dr.spivak lara doctor Medications at Discharge Discharge Medications: Continue taking these medications: Clonazepam (Clonazepam) 0.5 MG TABLET 1 Tablet ORAL TWICE DAILY Qty = 30 Comments: Last Taken: 11/03/16 Time: 1000 AM Albuterol Sulfate (Ventolin Hfa) 90 MCG HFA.AER.AD 2 Puff Inhale through mouth EVERY 8 HOURS NEEDED as needed for COPD Qty = 18 Comments: NOT GIVEN IN HOSPITAL Budesonide/Formoterol Fumarate (Symbicort 160-4.5 Mcg Inhaler) 160 MCG-4.5 MCG/ ACTUATION HFA.AER.AD 2 Puff Inhale through mouth TWICE DAILY Qty = 10 Comments: Last Taken: 11/03/16 Time: 1000 AM Baclofen (Baclofen) 10 MG TABLET 1 Tablet ORAL Qty = 10 Comments: NOT GIVEN DURING THIS ADMISSION Trazodone HCl (Trazodone HCl) 100 MG TABLET 2 Tablet ORAL Every night Qty = 60 Comments: Last Taken: 11/02/16 Time: 2300 PM Magnesium Oxide (Magnesium Oxide) 400 MG TABLET 400 Milligram ORAL DAILY Qty = 15 Instructions: . Comments: Last Taken: 11/03/16 Time: 1000 AM Albuterol Sulfate (Albuterol Sulfate) 2.5 MG/3 ML (0.083 %) VIAL.NEB 3 Milliliters Inhale through mouth EVERY 8 HOURS NEEDED as needed for SHORTNESS OF BREATH Qty = 10 Instructions: . Comments: Last Taken: 11/03/16 Time: 1000 AM Pantoprazole Sodium (Pantoprazole Sodium) 40 MG TABLET.DR 1 Tablet ORAL DAILY Qty = 30 Comments: NOT GIVEN IN HOSPITAL Docusate Sodium (Colace) 100 MG CAPSULE 1 Capsule ORAL TWICE DAILY Comments: NOT GIVEN IN HOSPITAL Polyethylene Glycol 3350 (Miralax) 17 GRAM POWD.PACK 1 Packet ORAL DAILY as needed for CONSTIPATION Instructions: dissolve in water Comments: NOT GIVEN IN HOSPITAL Gabapentin (Neurontin) 300 MG CAPSULE 1 Capsule ORAL THREE TIMES DAILY Comments: Last Taken: 11/03/16 Time: 1000 AM Aclidinium [place] (Tudorza Pressair) 400 MCG/ACTUATION AER.POW.BA 1 PUFF ORAL TWICE DAILY Comments: NOT GIVEN IN HOSPITAL Sertraline HCl (Zoloft) 100 MG TABLET 2 Tablet ORAL DAILY Comments: Last Taken: 11/03/16 Time: 1000 AM Melatonin (Melatonin) 3 MG TABLET 3 Tablet ORAL Every night Comments: Last Taken: 11/02/16 Time: 2300 PM Oxycodone HCl/Acetaminophen (Percocet 5-325 MG Tablet) 5 MG-325 MG TABLET 1 Tablet ORAL EVERY 4 HOURS NEEDED as needed for PAIN Comments: NOT GIVEN IN HOSPITAL Furosemide (Furosemide) 20 MG TABLET 1 Tablet ORAL DAILY Comments: NOT GIVEN IN HOSPITAL Start taking the following new medications: Augmentin (Augmentin 500-125 Tablet) 500 MG-125 MG TABLET 1 Tablet ORAL EVERY 12 HOURS Qty = 6 No Refills Comments: Last Taken: 11/03/16 Time: 1000 AM Copies To: ROVERTO MONTENEGRO MD
--- NOTE | 2016-11-02 08:11 | PN- Housestaff ---
Subjective Follow-up For: pneumonia Subjective: I have seen and examined the patient. The patient was sitting in the bed. She said that she did not feel very well today. She did desaturate to 88% overnight and had a blood pressure 90/50. Right now she is on 2 L nasal cannula and sats are 92 and the blood pressure is 132/62. She was afebrile overnight. She is currently off IV antibiotics and on oral Augmentin. she complains of erythema, edema,tenderness and pruritus of her lower extremities. There were no overnight acute events. She denies any shortness of breath chest pain or palpitations. Review of Systems Constitutional: Denies: chills, diaphoresis. Cardiovascular: Denies: chest pain. Respiratory: Denies: cough, hemoptysis, short of breath. Gastrointestinal: Reports: no symptoms. Genitourinary: Reports: no symptoms. Objective Last 24 Hrs of Vital Signs/I&O Vital Signs Date Time Temp Pulse Resp B/P B/P Pulse O2 O2 Flow FiO2 Mean Ox Delivery Rate 11/02 0620 98.2 69 18 132/62 92 11/02 0000 91 Nasal 2.0L Cannula 11/01 2229 98.0 73 19 90/50 91 Nasal 2.0L Cannula 11/01 2100 88 Room Air 11/01 1442 98.3 75 20 106/60 93 Room Air 11/01 0822 92 Nasal 1.5L Cannula Intake & Output 11/02 1600 11/02 0800 11/02 0000 Intake Total 250 440 Output Total 200 500 Balance 50 -60 Intake, IV 10 10 Intake, Oral 240 430 Output, Stool 200 500 Physical Exam General Appearance: Alert, Oriented X3, Cooperative Lungs: Clear to Auscultation, Normal Air Movement Abdomen: Normal Bowel Sounds, Soft, No Tenderness Extremities: bilateral erythema, tenderness, skin sloughing of lower extremities Assessment/Plan Assessment: This is a 61 yo female with PMH of recent prolonged ICU stay for sigmoid perforation and abscess with colostomy.At that time she had been intubated, successfully extubated, and d/c on 2L NC. She presented with CC of fever, chills, SOB, cough and weakness of one day duration Doppler: negative for DVT --CT Chest: Left lower lobe pneumonia. Small infiltrate or atelectasis in the right lower lobe, inferior segment of the lingula and right middle lobe. Persistent fluid and abnormal soft tissue seen under the right hemidiaphragm adjacent to the right lobe of the liver. --CT of Abdomen and Pelvis w/o contrast impression: on 10/30 1. Bibasilar consolidation with bilateral pleural effusions. 2. Left-sided colostomy. Diverticulosis of colon but no acute change of bowel. 3. Small amount of fluid around the liver. Volume of fluid though is diminished since exam of 09/30/2016. PLAN: Hospital-acquired pneumonia The patient was intially on meropenem and vancomycin , she has previously grown pseudomonas intermittently resistant to Ceftaz. * CT scan done on 10/30 showed bibasilar consolidation with bilateral effusion * Continue po augment 500mg day 2 * upper respiratory nostril culture-- NO METHICILLIN RESISTANT STAPH AUREUS ISOLATED; * Lower respiratory culture-- mixed elida Hypoxemic respiratory failure Pt came in with o2 sat of 86 was put on 2L NC oxygen. She is improving with decreasing oxygen requirements. She did desaturate to 88% overnight. * check o2 with ambulation to determine o2 needs and wean off oxygen * TRC/Nebs * supplement o2 with a goal Spo2 >88% * Symbicort 2 puffs BID Bilateral lower extremity pruritus and pain- Cellulitis? Her recent complaints of bilateral lower extremity pruritus and discomfort raise concern for cellulitis, though she had no complaints in this area prior to admission. On examination her legs are edematous, pruritic, erythematous and warm. There is no fungal infection of toes. She had a pedicure done on 10/28 * Doppler negative for DVT * elevate the legs * Symptomatic treatment for pruritis Bendryl cream * Monitor for signs of infection Possible sepsis Patient came in with fever of 102, elevated wbc, tachycardia and desaturation there was concern of sepsis 2/2 PNA with initial lactic acid 3.2 and white count of 17.1 * The patient has been afebrile since 10/30 * Lactic acid white cell count and other parameters are within normal range * Blood cultures negative to date * UA showed hazy color moderate leukoesterase with 15-25 urine WBCs. At this point patient does not have any symptoms of UTI including dysuria burning and increased frequency. Urine culture is negative to date * Concerns for cellulits considering her erythematous, warm lower extremities * Patient is currently on augment 500 mg PO Chestpain Pt complained of chest pressure and heartburn she seemed to be very anxious. Heartburn likely due to antibiotics. Monitoring for now * EKG no acute changes * Troponins negative * GI cocktail * continue Prilosec Diarrhea--- reolved Patient is status post pericolic abscess and sigmoid colectomy and colostomy since august 2016. Reported two episodes of loose stool in colostomy bag * C.diff toxin negative Problem List: 1. Pneumonia of both lower lobes Pain Ratin Pain Location: lower extremities Pain Goal: Pain 4 or less Pain Plan: morphine, acetaminophin 100mg, motrin Tomorrow's Labs & Rationales: cbc bep Consulting Request: 1 Consulting Specialty: Infectious Disease Consulting Request: 2 Consulting Specialty: Pulmonary Disease
--- NOTE | 2016-11-02 08:13 | Patient Discharge Instructions ---
Discharge Instructions General Discharge Information You were seen/treated for: [facility] for these problems: fever increasing pain and swelling of legs shortness of breath chest pain Special Instructions: please follow up with your PCP please finish your antibiotic course please follow up with Dr. Armendariz for colostomy reversal Please follow up with Dr. Dorman your pulm doctor Diet Continue normal diet: Yes Activity Full Activity/No Limits: Yes Acute Coronary Syndrome Inclusion Criteria At DC or during hospital stay patient has or had the following: ACS DIAGNOSIS No Discharge Core Measures Meds if any: Prescribed or Continued at Discharge Meds if any: NOT Prescribed or Continued at Discharge Congestive Heart Failure Inclusion Criteria At DC or during hospital stay patient has or had the following: CHF DIAGNOSIS No Discharge Core Measures Meds if any: Prescribed or Continued at Discharge Meds if any: NOT Prescribed or Continued at Discharge Cerebrovascular accident Inclusion Criteria At DC or during hospital stay patient has or had the following: CVA/TIA Diagnosis No Discharge Core Measures Meds if any: Prescribed or Continued at Discharge Meds if any: NOT Prescribed or Continued at Discharge Venous thromboembolism Inclusion Criteria VTE Diagnosis No VTE Type NONE VTE Confirmed by (Test) NONE Discharge Core Measures - Per Current guidelines, there needs to be overlap - treatment for the first 5 days of Warfarin therapy. - If discharged on Warfarin prior to 5 days of - overlap therapy, the patient will need to be - assessed for post discharge needs including - *Post discharge parental anticoagulation - *Warfarin and/or parental anticoagulation education - *Follow up date to check INR post discharge At least 5 days overlap therapy as Inpatient No Meds if any: Prescribed or Continued at Discharge Note: Overlap Therapy is Warfarin and Anticoagulant Meds if any: NOT Prescribed or Continued at Discharge
[2016-11-02 08:15] LABS: ABSOLUTE BASOPHIL COUNT 0 /CUMM (0.0-0.2); ABSOLUTE EOSINOPHIL COUNT 0.3 /CUMM (0.0-0.7); ABSOLUTE GRANULOCYTE CT 5.6 /CUMM (1.4-6.5); ABSOLUTE MONOCYTE COUNT 0.6 /CUMM (0.10-0.60); BASOPHIL % 0.4 % (0.0-2.0); EOSINOPHIL % 3.5 % (0-5); GRANULOCYTE % 75.5 % (42.2-75.2); HEMATOCRIT 32.6 % (37-47); MEAN CORPUSCULAR HGB 31.3 PG (27.0-31.0); MEAN CORPUSCULAR HGB CONC 33.4 G/DL (33.0-37.0); MEAN CORPUSCULAR VOLUME 93.9 FL (81.0-99.0); PLATELET COUNT 497 /CUMM (130-400); RBC DISTRIBUTION WIDTH 17.3 % (11.5-14.5); RED BLOOD CELL CT 3.47 /CUMM (4.20-5.40); WHITE BLOOD CELL COUNT 7.5 /CUMM (4.8-10.8)
--- NOTE | 2016-11-02 08:20 | PN- Att Addend ---
Attending Addendum Attending Brief Note Patient seen and examined. Plan of care discussed with the medical team and the patient. Available lab work and radiology test reports were reviewed. This morning during the rounds patient complained of chest pressure across upper chest she also reported mild dysphagia and heartburn-like sensation. She also reports her pain is radiating to the posterior upper chest. She denies any difficulty breathing but appears anxious. Assessment * Healthcare associated pneumonia * Chest pressure pain- pressure target could include angina or GERD or esophagitis * Sepsis * Status post pericolic abscess and sigmoid colectomy and colostomy * History of DJD * History of depression * History of anxiety * Prior history of C. difficile- recent C. difficile complete yesterday was negative Plan * Continue Augmentin as per ID recommendations * Sublingual nitroglycerin to see the response; obtain EKG; check troponins; give patient GI cocktail; continue Prilosec. Patient shows EKG changes or pain persist she will need to be transferred to telemetry with cardiac consult. * ID consult note reviewed- we will need to determine the duration of antibiotic therapy. Exam: General: Patient awake alert oriented without any distress ; appears anxious CVS: S1 plus S2 without any murmur or gallops Chest: Few scattered crepitation without any wheeze. There is no respiratory distress. Abdomen: Soft nontender, bowel sound present, no guarding or rebound; colostomy bag is noted on left-sided abdomen MIDLEVEL PROVIDER: Awake alert oriented without any focal neuro deficit and follows command appropriately Extremities: No edema; no clubbing or cyanosis noted Vital Signs Date Time Temp Pulse Resp B/P B/P Pulse O2 O2 Flow FiO2 Mean Ox Delivery Rate 11/02 0620 98.2 69 18 132/62 92 11/02 0000 91 Nasal 2.0L Cannula 11/01 2229 98.0 73 19 90/50 91 Nasal 2.0L Cannula 11/01 2100 88 Room Air 11/01 1442 98.3 75 20 106/60 93 Room Air 11/01 0822 92 Nasal 1.5L Cannula Intake & Output 11/02 1600 11/02 0800 11/02 0000 Intake Total 250 440 Output Total 200 500 Balance 50 -60 Intake, IV 10 10 Intake, Oral 240 430 Output, Stool 200 500 Laboratory Tests 11/02/16 1000: Troponin I < 0.01 11/02/16 0710: Anion Gap 7, Estimated GFR > 60, BUN/Creatinine Ratio 20.0, CBC w Diff NO MAN DIFF REQ, RBC 3.47 L, MCV 93.9, MCH 31.3 H, RDW 17.3 H, MPV 7.0 L, Gran % 75.5 H, Lymphocytes % 13.1 L, Monocytes % 7.5, Eosinophils % 3.5, Basophils % 0.4, Absolute Granulocytes 5.6, Absolute Lymphocytes 1.0 L, Absolute Monocytes 0.6, Absolute Eosinophils 0.3, Absolute Basophils 0, PUBS MCHC 33.4 11/01/16 0802: Anion Gap 10, Estimated GFR > 60, BUN/Creatinine Ratio 18.3, CBC w Diff NO MAN DIFF REQ, RBC 3.70 L, MCV 95.1, MCH 31.3 H, RDW 17.7 H, MPV 7.3 L, Gran % 71.7, Lymphocytes % 15.3 L, Monocytes % 8.5, Eosinophils % 3.9, Basophils % 0.6 , Absolute Granulocytes 4.8, Absolute Lymphocytes 1.0 L, Absolute Monocytes 0.6 , Absolute Eosinophils 0.3, Absolute Basophils 0, PUBS MCHC 32.9 L 10/31/16 1430: Anion Gap 9, Estimated GFR > 60, BUN/Creatinine Ratio 26.0 H, CBC w Diff NO MAN DIFF REQ, RBC 3.49 L, MCV 94.8, MCH 30.9, RDW 17.5 H, MPV 7.6, Gran % 76.5 H, Lymphocytes % 12.6 L, Monocytes % 8.6, Eosinophils % 2.1, Basophils % 0.2, Absolute Granulocytes 7.3 H, Absolute Lymphocytes 1.2, Absolute Monocytes 0.8 H, Absolute Eosinophils 0.2, Absolute Basophils 0, PUBS MCHC 32.6 L 10/31/16 0825: Urine Color YEL, Urine Clarity HAZY H, Urine pH 6.0, Ur Specific [place] 1.015, Urine Protein NEG, Urine Ketones NEG, Urine Nitrite NEG, Urine Bilirubin NEG, Urine Urobilinogen 0.2, Ur Leukocyte Esterase MOD H, Ur Microscopic SEDIMENT EXAMINED, Urine RBC RARE, Urine WBC 15-25 H, Ur Epithelial Cells MOD H, Urine Bacteria FEW H, Urine Hemoglobin NEG, Urine Glucose NEG Microbiology 10/31 0700 STOOL: Clostridium difficile Toxin A & B - COMP 10/30 1600 UPPER RESP: Surveillance Culture - COMP
--- NOTE | 2016-11-02 10:33 | PN- Pulmonary ---
Subjective HPI/Critical Care Issues: Patient seen and examined this morning. She complains of some heartburn and indigestion and left-sided chest discomfort. She has received Nitropaste and awaiting an EKG from the primary team. From the pulmonary perspective she feels significantly better and is currently on room air. Objective Current Medications: Current Medications Sig/Ry Start time Last Medication Dose Route Stop Time Status Admin Acetaminophen 650 MG Q4P PRN 11/02 0900 AC PO Acetaminophen 1,000 MG Q6P PRN 10/29 1630 DC IV Albuterol Sulfate 3 ML BID 10/29 2200 AC 11/01 INH 2100 Albuterol Sulfate 3 ML Q8P PRN 10/29 1630 AC INH Albuterol Sulfate 2 PUF Q8P PRN 10/29 1630 AC INH Amoxicillin/ 875 MG Q12 11/01 2200 AC 11/02 Clavulanate Potassium PO 0901 Budesonide/ 2 PUF BID 10/29 2200 AC 11/02 Formoterol Fumarate INH 0906 Clonazepam 0.5 MG BID PRN 10/29 1645 AC 11/02 PO 11/05 2159 0905 Diphenhydramine HCl 1 GISSEL 4 TIMES/DAY PRN 10/31 1900 AC 11/01 TOP 0845 Docusate Sodium 100 MG BID PRN 10/29 1645 AC PO Enoxaparin Sodium 40 MG DAILY 10/30 1000 AC 11/02 SC 0901 Gabapentin 300 MG TID 10/29 1626 AC 11/02 PO 0901 Ibuprofen 600 MG Q6P PRN 10/29 1630 AC 10/30 PO 0943 Magnesium Oxide 400 MG DAILY 10/30 1000 AC 11/02 PO 0901 Melatonin 9 MG .STK-MED ONE 11/01 2136 DC PO 11/01 2137 Melatonin 9 MG QPM PRN 10/29 1645 AC 11/01 PO 2135 Meropenem 1 GM IQ8 10/29 1730 DC 11/01 IV 0844 Morphine Sulfate 2 MG Q4P PRN 10/29 1630 AC 11/01 IV 1616 Nitroglycerin 0.4 MG ONCE ONE 11/02 1000 DC 11/02 SL 11/02 1001 0959 Omeprazole 40 MG DAILY AC PRN 10/29 1630 AC 11/02 PO 0958 Patient Medication 1 ED .STK-MED ONE 11/01 1428 DC Teaching ED 11/01 1429 Polyethylene Glycol 17 GM DAILY PRN 10/29 1645 AC PO Sertraline HCl 200 MG DAILY 10/29 1628 AC 11/02 PO 0901 Trazodone HCl 200 MG QPM 10/29 2199 AC 11/01 PO 2131 Vancomycin HCl 1,000 MG 10/30 DC 10/31 Sodium Chloride 250 ML IV 2057 Vital Signs & I&O Last 24 Hrs of Vitals and I&O: Vital Signs Date Time Temp Pulse Resp B/P B/P Pulse O2 O2 Flow FiO2 Mean Ox Delivery Rate 11/02 1014 92 Room Air Room Air 11/02 0910 97 Nasal 2.0L Cannula 11/02 0800 95 Nasal 2.0L Cannula 11/02 0620 98.2 69 18 132/62 92 11/02 0000 91 Nasal 2.0L Cannula 11/01 2229 98.0 73 19 90/50 91 Nasal 2.0L Cannula 11/01 2100 88 Room Air 11/01 1442 98.3 75 20 106/60 93 Room Air Intake & Output 11/02 1600 11/02 0800 11/02 0000 Intake Total 250 440 Output Total 200 500 Balance 50 -60 Intake, IV 10 10 Intake, Oral 240 430 Output, Stool 200 500 Exam Other Physical Findings: Generally she is awake and oriented. Lungs minor rhonchi at the bases. Abdomen is soft colostomy bag is present Extremities are without edema. The chest pain that she complained about is not reproducible. Results Last 24 Hrs of Lab Results: Laboratory Tests 11/02/16 1000: Troponin I Pending 11/02/16 0710: Anion Gap 7, Estimated GFR > 60, BUN/Creatinine Ratio 20.0, CBC w Diff NO MAN DIFF REQ, RBC 3.47 L, MCV 93.9, MCH 31.3 H, RDW 17.3 H, MPV 7.0 L, Gran % 75.5 H, Lymphocytes % 13.1 L, Monocytes % 7.5, Eosinophils % 3.5, Basophils % 0.4, Absolute Granulocytes 5.6, Absolute Lymphocytes 1.0 L, Absolute Monocytes 0.6, Absolute Eosinophils 0.3, Absolute Basophils 0, PUBS MCHC 33.4 Impression/Plan Impression/Plan Impression/Plan: Impression 61 year old woman * Hypoxemic respiratory failure * Sepsis with LLL pneumonia, HCAP and hx of pseduomonas (resistant to ceftazadime) * 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 Plan -TRC/Nebs -supplement o2 with a goal spo2 >88% -check o2 with ambulation to determine o2 needs -f/u with surgery plan for reversal of colostomy -cont ID recommendation f/u -chest discomfort likely GI related, workup per primary team DVT prophylaxis at all times
--- NOTE | 2016-11-02 12:14 | PN- Infect Dx ---
Subjective Subjective: Afebrile. She complained of some left sided chest discomfort and indigestion earlier today. She notes a minimal cough, with light yellow sputum but denies any shortness of breath. She continues to report pruritus over the anterior tibial aspect of both lower extremities. Objective Last 24 Hrs of Vital Signs/I&O Vital Signs Date Time Temp Pulse Resp B/P B/P Pulse O2 O2 Flow FiO2 Mean Ox Delivery Rate 11/02 1045 93 Room Air Room Air 11/02 1014 92 Room Air Room Air 11/02 0910 97 Nasal 2.0L Cannula 11/02 0800 95 Nasal 2.0L Cannula 11/02 0620 98.2 69 18 132/62 92 11/02 0000 91 Nasal 2.0L Cannula 11/01 2229 98.0 73 19 90/50 91 Nasal 2.0L Cannula 11/01 2100 88 Room Air 11/01 1442 98.3 75 20 106/60 93 Room Air Intake & Output 11/02 1600 11/02 0800 11/02 0000 Intake Total 250 440 Output Total 200 500 Balance 50 -60 Intake, IV 10 10 Intake, Oral 240 430 Output, Stool 200 500 Physical Exam Other Physical Findings: She appears comfortable in no acute distress Lungs crackles at left base; decreased breath sounds at the right base Heart regular rhythm with no murmur Extremities erythema and mild tenderness over the anterior tibial aspects of both lower extremities with decreased edema Results Last 24 Hours of Lab Results: Laboratory Tests 11/02 11/02 1000 0710 Chemistry Sodium (137 - 145 mmol/L) 140 Potassium (3.5 - 5.1 mmol/L) 4.7 Chloride (98 - 107 mmol/L) 104 Carbon Dioxide (22 - 30 mmol/L) 28 Anion Gap (5 - 16) 7 BUN (7 - 17 mg/dL) 12 Creatinine (0.5 - 1.0 mg/dL) 0.6 Estimated GFR (>60 ml/min) > 60 BUN/Creatinine Ratio (7 - 25 %) 20.0 Troponin I (< 0.11 ng/ml) < 0.01 Hematology CBC w Diff NO MAN DIFF REQ WBC (4.8 - 10.8 /CUMM) 7.5 RBC (4.20 - 5.40 /CUMM) 3.47 L Hgb (12.0 - 16.0 G/DL) 10.9 L Hct (37 - 47 %) 32.6 L MCV (81.0 - 99.0 FL) 93.9 MCH (27.0 - 31.0 PG) 31.3 H RDW (11.5 - 14.5 %) 17.3 H Plt Count (130 - 400 /CUMM) 497 H MPV (7.4 - 10.4 FL) 7.0 L Gran % (42.2 - 75.2 %) 75.5 H Lymphocytes % (20.5 - 51.1 %) 13.1 L Monocytes % (1.7 - 9.3 %) 7.5 Eosinophils % (0 - 5 %) 3.5 Basophils % (0.0 - 2.0 %) 0.4 Absolute Granulocytes (1.4 - 6.5 /CUMM) 5.6 Absolute Lymphocytes (1.2 - 3.4 /CUMM) 1.0 L Absolute Monocytes (0.10 - 0.60 /CUMM) 0.6 Absolute Eosinophils (0.0 - 0.7 /CUMM) 0.3 Absolute Basophils (0.0 - 0.2 /CUMM) 0 PUBS MCHC (33.0 - 37.0 G/DL) 33.4 Last 24 Hours of [place] Results: No recent cultures Assessment/Plan Impression: Overall stable now on Augmentin Day 4 of treatment for possible left lower lobe pneumonia/sepsis with temperatures and white blood cell count remaining normal. The etiology of her left sided chest discomfort and indigestion is unclear but seems unlikely to be secondary to the Augmentin. Her pruritic lower extremity rash also remains unexplained. Suggestion: 1. Continue symptomatic treatment of her lower extremity pruritus 2. Decrease Augmentin to 500 mg po every 12 hours to complete a 7 day course of antibiotics
[2016-11-02] MEDS ORDERED: AUGMENTIN 500-1 EACH PO (14:40)
[2016-11-02 14:48] VITALS: BP 100/54
[2016-11-02 23:17] VITALS: BP 100/54
[2016-11-03 06:34] VITALS: BP 100/62
--- NOTE | 2016-11-03 09:02 | PN- Housestaff ---
See Addendum Subjective Follow-up For: Pnemonia Lower extremity erythema Subjective: I have seen and examined the patient. The patient was sitting on the chair and taking coffee. There were no overnight acute events. She does not complain of any chest pain palpitations or shortness of breath. She believes that she feels better. She is going to be discharged today on oral Augmentin. Review of Systems Constitutional: Reports: no symptoms. Cardiovascular: Denies: chest pain, orthopena. Respiratory: Denies: cough, hemoptysis, orthopnea. Gastrointestinal: Reports: no symptoms. Genitourinary: Reports: no symptoms. Objective Last 24 Hrs of Vital Signs/I&O Vital Signs Date Time Temp Pulse Resp B/P B/P Pulse O2 O2 Flow FiO2 Mean Ox Delivery Rate 11/03 0634 98.3 68 22 100/62 93 Room Air 11/02 2317 98.7 87 18 100/54 90 11/02 2205 94 Room Air 11/02 1448 98.0 79 18 100/54 94 Room Air 11/02 1400 91 Room Air Room Air 11/02 1045 93 Room Air Room Air 11/02 1014 92 Room Air Room Air Physical Exam General Appearance: Alert, Oriented X3, Cooperative, No Acute Distress HEENT: Atraumatic Cardiovascular: Normal S1, Normal S2, No Murmurs Lungs: Clear to Auscultation, Normal Air Movement Abdomen: Normal Bowel Sounds Neurological: Normal Speech Extremities: bilateral erythema, tenderness, skin sloughing of lower extremities Current Medications: Current Medications Sig/Ry Start time Last Medication Dose Route Stop Time Status Admin Acetaminophen 650 MG Q4P PRN 11/02 0900 AC PO Albuterol Sulfate 3 ML BID 10/29 2199 AC 11/02 INH 2202 Albuterol Sulfate 3 ML Q8P PRN 10/29 1630 AC INH Albuterol Sulfate 2 PUF Q8P PRN 10/29 1630 AC INH Amoxicillin/ 500 MG Q12 11/02 2199 AC 11/03 Clavulanate Potassium PO 0908 Amoxicillin/ 875 MG Q12 11/01 2200 DC 11/02 Clavulanate Potassium PO 0901 Budesonide/ 2 PUF BID 10/29 220 AC 11/03 Formoterol Fumarate INH 09 Clonazepam 0.5 MG BID PRN 10/29 1645 AC 11/02 PO 11/05 2159 1439 Diphenhydramine HCl 1 GISSEL 4 TIMES/DAY PRN 10/31 1900 AC 11/01 TOP 0845 Docusate Sodium 100 MG BID PRN 10/29 1645 AC PO Enoxaparin Sodium 40 MG DAILY 10/30 1000 AC 11/03 SC 0908 Gabapentin 300 MG TID 10/29 1626 AC 11/03 PO 0908 Ibuprofen 600 MG Q6P PRN 10/29 1630 AC 10/30 PO 0943 Magnesium Oxide 400 MG DAILY 10/30 1000 AC 11/03 PO 0908 Melatonin 9 MG .STK-MED ONE 11/02 2311 DC PO 11/02 2312 Melatonin 9 MG QPM PRN 10/29 1645 AC 11/02 PO 2311 Morphine Sulfate 2 MG Q4P PRN 10/29 1630 AC 11/03 IV 0317 Nitroglycerin 0.4 MG ONCE ONE 11/02 1000 DC 11/02 SL 11/02 1001 0959 Omeprazole 40 MG .STK-MED ONE 11/02 0957 DC PO 11/02 0958 Omeprazole 40 MG DAILY AC PRN 10/29 1630 AC 11/02 PO 0958 Polyethylene Glycol 17 GM DAILY PRN 10/29 1645 AC PO Sertraline HCl 200 MG DAILY 10/29 1628 AC 11/03 PO 0908 Trazodone HCl 200 MG QPM 10/29 2200 AC 11/02 PO 2302 Last 24 Hrs of Lab/[place] Results Last 24 Hrs of Labs/Mics: Laboratory Tests 11/03/16 0740: Sodium Pending, Potassium Pending, Chloride Pending, Carbon Dioxide Pending, Anion Gap Pending, BUN Pending, Creatinine Pending, BUN/Creatinine Ratio Pending , CBC w Diff Pending, WBC Pending, RBC Pending, Hgb Pending, Hct Pending, MCV Pending, MCH Pending, RDW Pending, Plt Count Pending, MPV Pending, PUBS MCHC Pending 11/03/16 0020: Troponin I < 0.01, Random Vancomycin < 5.0 11/02/16 1930: Vancomycin Trough Cancelled 11/02/16 1000: Troponin I < 0.01 Assessment/Plan Assessment: This is a 61 yo female with PMH of recent prolonged ICU stay for sigmoid perforation and abscess with colostomy.At that time she had been intubated, successfully extubated, and d/c on 2L NC. She presented with CC of fever, chills, SOB, cough and weakness of one day duration ED WORK UP SHOWS: Vitals: 102.5, 112, 20, 113/71 Pulse ox initially 86 on room air cbc: 17.1, 10.7/32.8, 543 BEP: BUN 21 and Cr .8, Lacticc 3.2 Negative trops, LFTs, BNP 491, CRP 1. 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 * CT scan done on 10/30 showed bibasilar consolidation with bilateral effusion * upper respiratory nostril culture-- NO METHICILLIN RESISTANT STAPH AUREUS ISOLATED; * Lower respiratory culture-- mixed elida * Continue po augment 500 mg BID Hypoxemic respiratory failure Pt came in with o2 sat of 86 was put on 2L NC oxygen. She was weaned off oxygen * Continue Symbicort 2 puffs BID Bilateral lower extremity pruritus and pain--improving Her recent complaints of bilateral lower extremity pruritus and discomfort raises concern for cellulitis, though she had no complaints in this area prior to admission. On examination her legs are edematous, pruritic, erythematous and warm. There is no fungal infection of toes. She had a pedicure done on 10/28 * Doppler negative for DVT * Elevate the legs * Symptomatic treatment for pruritis Bendryl cream * Monitor for signs of infection * Follow up with PCP Possible sepsis Patient came in with fever of 102, elevated wbc, tachycardia and desaturation there was concern of sepsis 2/2 PNA with initial lactic acid 3.2 and white count of 17.1 * The patient has been afebrile since 10/30 * Lactic acid white cell count and other parameters are within normal range * Blood cultures negative to date * UA showed hazy color moderate leukoesterase with 15-25 urine WBCs. At this point patient does not have any symptoms of UTI including dysuria burning and increased frequency. Urine culture is negative to date * Concerns for cellulits considering her erythematous, warm lower extremities * Patient is being discharged on augment 500mg BID PO Diarrhea--- reolved Patient is status post pericolic abscess and sigmoid colectomy and colostomy since august 2016. Reported two episodes of loose stool in colostomy bag * C.diff toxin negative Chest tightness and heartburn Pt complained of chest tightness and heartburn on 11/02. EKG showed no acute changes and trops were negative. likely secondary to antibiotics * Continue Prilosec Anxiety Patient wanted to be discharged with some clonazepam. On [place] she was recently prescribed 60 tablets of clonazepam 0.5MG on 10/20/2016. so we are going to hold off that. Problem List: 1. Pneumonia of both lower lobes 2. Hypoxia Pain Ratin Pain Location: lower extremities Pain Goal: Pain 4 or less Pain Plan: morphine, acetaminophin 100mg, motrin Tomorrow's Labs & Rationales: d/c Consulting Request: 1 Consulting Specialty: Infectious Disease Consulting Request: 2 Consulting Specialty: Pulmonary Disease
[2016-11-03 09:29] LABS: ABSOLUTE BASOPHIL COUNT 0 /CUMM (0.0-0.2); ABSOLUTE EOSINOPHIL COUNT 0.2 /CUMM (0.0-0.7); ABSOLUTE LYMPH COUNT 1.4 /CUMM (1.2-3.4); ABSOLUTE MONOCYTE COUNT 0.5 /CUMM (0.10-0.60); BASOPHIL % 0.4 % (0.0-2.0); EOSINOPHIL % 3.7 % (0-5); GRANULOCYTE % 64.7 % (42.2-75.2); HEMATOCRIT 36.8 % (37-47); MEAN CORPUSCULAR HGB CONC 32.7 G/DL (33.0-37.0); MEAN CORPUSCULAR VOLUME 94.8 FL (81.0-99.0); MEAN PLATELET VOLUME 7.2 FL (7.4-10.4); PLATELET COUNT 549 /CUMM (130-400); RBC DISTRIBUTION WIDTH 16.6 % (11.5-14.5); RED BLOOD CELL CT 3.88 /CUMM (4.20-5.40); WHITE BLOOD CELL COUNT 6.1 /CUMM (4.8-10.8)
--- NOTE | 2016-11-03 09:50 | NUR ---
LATE ENTRY PER MD PALMER, IT WAS NOT NECESSARY TO DRAW VANCO TROUGH VANCO MED WAS D/C.
--- NOTE | 2016-11-03 10:05 | PN- Pulmonary ---
Subjective HPI/Critical Care Issues: pt seen and examined feeling well on ra comfortable anticipating dc Objective Current Medications: Current Medications Sig/Ry Start time Last Medication Dose Route Stop Time Status Admin Acetaminophen 650 MG Q4P PRN 11/02 0900 AC PO Albuterol Sulfate 3 ML BID 10/29 2200 AC 11/03 INH 0936 Albuterol Sulfate 3 ML Q8P PRN 10/29 1630 AC INH Albuterol Sulfate 2 PUF Q8P PRN 10/29 1630 AC INH Amoxicillin/ 500 MG Q12 11/02 2200 AC 11/03 Clavulanate Potassium PO 0908 Amoxicillin/ 875 MG Q12 11/01 2200 DC 11/02 Clavulanate Potassium PO 0901 Budesonide/ 2 PUF BID 10/29 2200 AC 11/03 Formoterol Fumarate INH 0909 Clonazepam 0.5 MG BID PRN 10/29 1645 AC 11/03 PO 11/05 2159 0913 Diphenhydramine HCl 1 GISSEL 4 TIMES/DAY PRN 10/31 1900 AC 11/01 TOP 0845 Docusate Sodium 100 MG BID PRN 10/29 1645 AC PO Enoxaparin Sodium 40 MG DAILY 10/30 1000 AC 11/03 SC 0908 Gabapentin 300 MG TID 10/29 1626 AC 11/03 PO 0908 Ibuprofen 600 MG Q6P PRN 10/29 1630 AC 10/30 PO 0943 Magnesium Oxide 400 MG DAILY 10/30 1000 AC 11/03 PO 0908 Melatonin 9 MG .STK-MED ONE 11/02 2311 DC PO 11/02 2312 Melatonin 9 MG QPM PRN 10/29 1645 AC 11/02 PO 2311 Morphine Sulfate 2 MG Q4P PRN 10/29 1630 AC 11/03 IV 0317 Omeprazole 40 MG DAILY AC PRN 10/29 1630 AC 11/02 PO 0958 Polyethylene Glycol 17 GM DAILY PRN 10/29 1645 AC PO Sertraline HCl 200 MG DAILY 10/29 1628 AC 11/03 PO 0908 Trazodone HCl 200 MG QPM 10/29 2200 AC 11/02 PO 2302 Vital Signs & I&O Last 24 Hrs of Vitals and I&O: Vital Signs Date Time Temp Pulse Resp B/P B/P Pulse O2 O2 Flow FiO2 Mean Ox Delivery Rate 11/03 0946 93 Room Air 11/03 0634 98.3 68 22 100/62 93 Room Air 11/03 0600 93 Room Air 11/02 2317 98.7 87 18 100/54 90 11/02 2205 94 Room Air 11/02 1448 98.0 79 18 100/54 94 Room Air 11/02 1400 91 Room Air Room Air 11/02 1045 93 Room Air Room Air 11/02 1014 92 Room Air Room Air Intake & Output 11/03 1600 11/03 0800 11/03 0000 Intake Total 320 Output Total Balance 320 Intake, Oral 320 Exam Other Physical Findings: gen awake and alert heent ncat cvs s1, s2 lungs rare rhonchi abd soft bs+ colostomy bag ext without edema Results Last 24 Hrs of Lab Results: Laboratory Tests 11/03/16 0740: Anion Gap 10, Estimated GFR > 60, BUN/Creatinine Ratio 20.0, CBC w Diff NO MAN DIFF REQ, RBC 3.88 L, MCV 94.8, MCH 31.0, RDW 16.6 H, MPV 7.2 L, Gran % 64.7, Lymphocytes % 23.3, Monocytes % 7.9, Eosinophils % 3.7, Basophils % 0.4, Absolute Granulocytes 4.0, Absolute Lymphocytes 1.4, Absolute Monocytes 0.5, Absolute Eosinophils 0.2, Absolute Basophils 0, PUBS MCHC 32.7 L 11/03/16 0020: Troponin I < 0.01, Random Vancomycin < 5.0 11/02/16 1930: Vancomycin Trough Cancelled Impression/Plan Impression/Plan Impression/Plan: Impression 61 year old woman * resolved hypoxemic respiratory failure * Sepsis with LLL pneumonia, HCAP and hx of pseduomonas (resistant to ceftazadime) * 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 Plan -TRC/Nebs -supplement o2 with a goal spo2 >88% -f/u with surgery plan for reversal of colostomy -continue augmentin per ID recommendations -f/u in office DVT prophylaxis at all times
[2016-11-03] MEDS ORDERED: AUGMENTIN 500-1 EACH PO (13:18)
--- NOTE | 2016-11-03 13:58 | NUR ---
NURSING NOTE: PATIENT LEFT FLOOR VIA W/C WITH SISTER AND [employer]OL[employer]ER SERVICES TO LOBBY FOR DISCHARGE. PATIENT A/OX3, ROOM AIR, NO ACUTE DISTRESS AT THIS TIME. IC DISCONTINUED. DISCHARGE INSTRUCTIONS DISCUSSED WITH PATIENT AND SISTER. NO QUESTIONS AT THIS TIME. PATIENT TO DOCUMENT REVIEW ATTORNEY PRESCIPTIONS FROM [facility] AFTER DISCHARGE.
== END 2016-11-03 13:52 | disposition home health service (06) | DRG 871 ==
LOC: ERH 11:11 → 2NB 13:46 → ERHI 13:46 → ENRESERV 15:56 → ENTRNSPT 19:58 → EDTRNSPTSTS 20:08 → 2NB 20:17 → CMPTRNSPT 20:25 → 2NB 11-02 08:09
PROVIDERS: Physician Assistant Medical; Student in an Organized Health Care Education/Training Program; ADMIT Internal Medicine
DX: A41.9 Sepsis, unspecified organism (principal); J96.91 Respiratory failure, unspecified with hypoxia; J18.9 Pneumonia, unspecified organism; Z93.3 Colostomy status; R60.9 Edema, unspecified; R13.10 Dysphagia, unspecified; L29.9 Pruritus, unspecified; R19.7 Diarrhea, unspecified; Z90.49 Acquired absence of other specified parts of digestive tract; J44.9 Chronic obstructive pulmonary disease, unspecified; F41.9 Anxiety disorder, unspecified; F32.9 Major depressive disorder, single episode, unspecified; Y95 Nosocomial condition; M19.90 Unspecified osteoarthritis, unspecified site; Z87.891 Personal history of nicotine dependence
CPT/HCPCS: 2NBP; 36415; 74176; 81001; 82436; 87040; 87070; 87071; 87086; 93005; 93010; J0131; J0713; J1650; J1885; J2185; J3370; J3490; J7040